=== PATIENT | male | born 1955 | race Caucasian/White ===

== ENCOUNTER 2017-07-14 10:30 | Day surgery (SDC) | payer MEDICAID, SELFPAY ==
[2017-07-14 10:49] VITALS: BP 148/76; PULSE 73; RESP 16; TEMP 37.1; O2SAT 100; BMI 30.4
--- NOTE | 2017-07-14 11:44 | COLBX_PTH ---
PATIENT: ATIYA SMITH LOC: EN U#:[id number] AGE/SX: 62/M ROOM: RE07/14/[address]: Dr. Eulalio Mohan MD : 1955 BED: DIS: 07/14/2017 SPEC #: [id number] RECD: 07/14/17 15:38 STATUS: MICHELLE REFran #: [id number] CINDI: 07/14/17 11:[address]: Eulalio Mohan DEPT: SURGICAL PATHOLOGY RECD BY: Paxton Pickard ENTERED: 07/15/17 09:18 SP TYPE: COLON BX OTHR DR: No Primary Care Phys Tissues: Ascending colon Procedures: Surgery Specimen Level IV HEADER OPERATION: Colonoscopy PRE-OP DIAGNOSIS: Screening TISSUE SUBMITTED: Ascending colon polyp MICROSCOPIC DIAGNOSIS Ascending colon polyp, biopsy: Tubular adenoma. AM:bacilio 07/16/17 MICROSCOPIC DESCRIPTION Slides are reviewed. GROSS DESCRIPTION Received in fixative is one container labeled with the patient's name and designated ascending colon polyp. The specimen consists of two irregular fragments of light chacko soft tissue that in aggregate measure 0.5 x 0.4 x 0.2 cm. The specimen is totally submitted in one cassette. / AM:bacilio 07/15/17 TC:5 CPT: 36565
--- NOTE | 2017-07-14 11:56 | PCM.HP.STD ---
Problem List (1) Colon cancer screening Status: Acute History of Present Illness Date of Admission: 07/14/17 The patient is a 62 year old M who presents for screening colonoscopy. Past Medical History Allergies No Known Allergies Allergy (Verified 07/11/17 09:55) Home Medications: Ambulatory Orders Medication Instructions Recorded Ascorbic Acid [Vitamin C] 500 mg PO DAILY@0800 07/11/17 Aspirin E.C. [Ecotrin] 81 mg PO DAILY@0800 07/11/17 Multivitamin [Multiple Vitamins] 1 each PO DAILY 07/11/17 Vitamin B Complex 1 each PO DAILY 07/11/17 Smoking Status: Never smoker Review of Systems Cardiovascular: Denies: Chest Pain, Chest Pressure, Chest Tightness, Palpitations Respiratory: Denies: Cough, Hemoptysis, Shortness of breath at rest, Shortness of breath upon exertion, Wheezing Gastrointestinal: Denies: Abdominal Pain, Constipation, Diarrhea, Hematemesis, Nausea, Melena, Vomiting VTE Information - Inpt Only VTE Present on Admission: No VTE Mechan Device Prophylaxis: None VTE Pharm Prophylaxis ordered?: No Reason prophylaxis not ordered:: Treatment Not Indicated Patient Problems: Active and Suspected Problems Colon cancer screening (Acute) - Physical Exam Lungs: Clear to auscultation Cardiovascular: Regular rate, Regular Rhythm, No murmurs Abdomen: Bowel Sounds Present, Soft, Non Tender, Non-Distended Vital Signs Temp Pulse Resp BP Pulse Ox 98.7 F 73 16 148/76 H 100 07/14/17 10:49 07/14/17 10:49 07/14/17 10:49 07/14/17 10:49 07/14/17 10:49 Oxygen Delivery Method Room Air Weight: 182 lb 8.684 oz Body Mass Index (BMI) 30.4 Laboratory Tests Past 24 Hrs 07/14/17 07/14/17 11:15 11:15 Sodium Pending Potassium Pending Chloride Pending Carbon Dioxide Pending Anion Gap Pending BUN Pending Creatinine Pending Est GFR (MDRD) Af Amer Pending Est GFR (MDRD) Non-Af Pending BUN/Creatinine Ratio Pending Glucose Pending Calcium Pending Total Bilirubin Pending AST Pending ALT Pending Alkaline Phosphatase Pending Total Protein Pending Albumin Pending Triglycerides Pending Cholesterol Pending LDL Cholesterol Pending VLDL Cholesterol Pending HDL Cholesterol Pending Hepatitis C Ab (EIA) Pending Hepatitis C Comment Pending Assessment/Plan Active and Suspected Problems Colon cancer screening (Acute) Plan is to perform a colonoscopy.
--- NOTE | 2017-07-14 11:58 | PCM.OPRPT ---
Problem List (1) Colon cancer screening Status: Acute Report of Operation Date of Procedure: 07/14/17 Pre-Operative Diagnosis: Z12.11 screening colonoscopy Post-Operative Diagnosis: Same Surgery/Procedure Performed:: [id number] colonoscopy with snare polypectomy Type of Anesthesia:: MAC Anesthesiologist: Facundo Hough Description of Procedure: Patient was brought into the endoscopy suite. Placed in the left lateral decubitus position. Given graded anesthesia. Scope was inserted into the rectum and directed through the sigmoid colon, descending colon, transverse colon, ascending colon, to the cecum. Operative findings: 1. Cecum: Normal appearance no mass lesions normal ileocecal valve. 2. Ascending colon: Normal appearance no mass lesions. There were 2 small polyps identified both of them removed with snare cautery technique. 1 of them I nearly completely ablated with my cauterization. There will be much of any pathology report for it. The other one I was able to bring back to the channel the scope and we should be able to send that off for pathology. 3. Transverse colon: Normal appearance no mass lesions. 4. Descending colon: Normal appearance no mass lesions. 5. Sigmoid colon: Normal appearance no mass lesions. 6. Rectum: Normal appearance no mass lesions retroflexion did show some internal hemorrhoidal disease. The scope was withdrawn digital rectal exam was performed showing a smooth prostate with no nodules. The patient will need another colonoscopy in 3 years. - Admit VTE Documentation VTE Present on Admission: No VTE Mechan Device Prophylaxis: None VTE Pharm Prophylaxis ordered?: No Reason prophylaxis not ordered:: Treatment Not Indicated
[2017-07-14 12:02] VITALS: BP 107/71; BP 148/76; PULSE 18; RESP 18; TEMP 36.1; O2SAT 99
[2017-07-14 12:02] LABS: ALB/GLOB Ratio 1.3 RATIO (0.9-2.4); AST(SGOT) 28 U/L (15-37); Alanine Aminotransfer ALT/SGPT 32 U/L (16-61); Albumin, Serum 4.3 g/dL (3.2-5.0); Alkaline Phosphatase 71 U/L (45-117); Anion Gap 5 (5-15); BUN 15 mg/dL (7-18); BUN/Creat Ratio 11.4 RATIO (10-20); Calcium,Total 9.1 mg/dL (8.5-10.1); Chloride 107 mmol/L (98-107); Cholesterol 147 mg/dL (200); Creatinine, Serum 1.32 mg/dL (0.70-1.30); EST Glomerular Filtration Rate 58 mL/min (>60); Est Glom Filt Rate - Afr Amer 70 mL/min (>60); Estimated Creatinine Clearance 49.18 ml/min; Globulin 3.3 g/dL (2.2-4.2); Glucose 93 mg/dL (74-106); High Density Lipoprotein 54 mg/dL; Potassium 4.1 mmol/L (3.5-5.1); Protein, Total 7.6 g/dL (6.4-8.2); Sodium Level 139 mmol/L (136-145); Triglycerides 69 mg/dL; Very Low Density Lipoprotein 14 mg/dL (5-40)
[2017-07-14 12:15] VITALS: BP 121/81; BP 148/76; PULSE 58; RESP 18; O2SAT 97
[2017-07-14 12:20] VITALS: BP 112/67; BP 148/76; PULSE 63; RESP 18; O2SAT 96
[2017-07-14 12:25] VITALS: BP 114/78; BP 148/76; PULSE 61; RESP 18; TEMP 36.2; O2SAT 96
[2017-07-14 12:55] VITALS: BP 148/76
[2017-07-15 10:38] LABS: Hep C Antibodies <0.1 s/co ratio (0.0-0.9)
== END 2017-07-14 12:57 | disposition home or self-care (01) ==
LOC: EN 10:31 → AC 10:33
PROVIDERS: Family Medicine; Visit Provider Surgery
PROC: 0DJD8ZZ Inspection of Lower Intestinal Tract, Via Natural or Artificial Opening Endoscopic (ICD-10-PCS; CPT 45378; principal; 2017-07-14 11:25)
DX: Z12.11 Encounter for screening for malignant neoplasm of colon (principal); D12.2 Benign neoplasm of ascending colon
CPT/HCPCS: 45385; 80053; 80061; 86803; 88305; J7120

== ENCOUNTER 2024-02-13 07:25 | Day surgery (SDC) | payer MEDICARE, SELFPAY ==
[2024-02-13] VITALS (15 sets, daily range): BP systolic 84–153; BP diastolic 54–83; PULSE 56–95; RESP 16–17; TEMP 36.4–36.7; O2SAT 89–100; BMI 34.7
--- NOTE | 2024-02-13 08:09 | PRE.ANES_ITS ---
ASA Classification* ASA Classification ASA Classification: 2 Assessment & Plan Anesthesia* Anesthesia Assessment Anesthesia Assessment: Discussed sedation and/or anesthesia options, risks, benefits, and alternatives with patient/parents/legal guardian/POA. Questions invited. The patient/parents/legal guardian/POA seems to understand and agrees to proceed with anesthesia plan. Reviewed the physical assessment, medical history, allergy history and patient home medications list prior to surgery/procedure/anesthetic and documented any changes. Performed airway and anesthesia risk assessments. Anesthesia Type Anesthesia Type: MAC Anesthesia Focused Assessment* Temperature: 97.8 F Pulse Rate: 95 Blood Pressure: 153/80 Respiratory Rate: 17 Pulse Ox: 95 Airway Assessment Mouth opens: >3 cm Mallampati Score: II Focused Labs Anesthesia Preop lab: CBC CHEMISTRY Potassium 4.1 mmol/L (3.5-5.1) 07/14/17 11:15 Sodium 139 mmol/L (136-145) 07/14/17 11:15 BUN 15 mg/dL (7-18) 07/14/17 11:15 Creatinine 1.32 mg/dL (0.70-1.30) H 07/14/17 11:15 Glucose 93 mg/dL (74-106) 07/14/17 11:15 COAG Pre-Assessment Diagnosis/Proposed Procedure Planned Operative Procedure(s): CSCOPE OA Anesthesia History Anesthesia History - manager front office: Anesthesia History - manager front office Hx Hospitalization No 02/12/24 09:24 Any Problems With Anesthesia No 02/12/24 09:24 Cholinesterase deficiency No 02/12/24 09:24 You/Your Family Experience No 02/12/24 09:24 fever (hyperthermia) with Relationship Recent Exposure to Contagious No 02/13/24 07:56 Disease Does patient have nerve No 02/12/24 09:24 stimulator Patient instructed to have device shut off --Does patient have Pacemaker No 02/13/24 07:56 or ICD? When Was Last Pacemaker Check QUESTION #4 FULL TEXT: You/Your Family Experience fever (hyperthermia) with Anesthesia Last Oral Intake Last Oral intake: Last Oral Intake NPO since 00:00 02/13/24 07:56 Meds taken in AM with sips of No 02/13/24 07:56 water? Meds patient instructed to take am of surgery PONV PONV - manager front office: PONV - manager front office Female No 02/12/24 09:24 HX of Motion Sickness No 02/12/24 09:24 HX of N/V After Surgery No 02/12/24 09:24 Non-Smoker Yes 02/12/24 09:24 Duration of Surgery greater No 02/12/24 09:24 than 60 minutes Number of Risk Factors 1 02/12/24 09:24 PONV Score Low Risk 02/12/24 09:24 Height & Weight Height & Weight: Anesthesia: Height & Weight Height 5 ft 4 in 02/13/24 07:56 Weight: 91.6 kg 02/13/24 07:56 Body Mass Index (BMI) 34.7 02/13/24 07:56 Respiratory Assessment Respiratory Assessment - manager front office: Respiratory Tract Infection Hx - manager front office Hx Respiratory Tract Infection No 02/12/24 09:24 STOP Sleep Apnea STOP Sleep Apnea - manager front office: STOP Sleep Apnea - manager front office Hx Hypertension No 02/12/24 09:24 Hx Sleep Apnea No 02/12/24 09:24 CPAP No 02/12/24 09:24 BIPAP Do you snore loudly (louder No 02/12/24 09:24 than talking or can be heard Do you often feel tired/ No 02/12/24 09:24 fatigued/ sleepy during daytime? Has anyone observed you stop No 02/12/24 09:24 breathing during sleep? STOP Results Negative 02/12/24 09:24 QUESTION #5 FULL TEXT : Do you snore loudly (louder than talking or can be heard through closed doors)? 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 Specify any problems Hx of Preganancy in last 3 N/A 02/12/24 09:24 Months Nurse Filling Out Transfusion DSCHRIBER 02/12/24 09:24 & Questions: Date: 02/12/24 02/12/24 09:24 Time: 02/12/24 09:24 Patient unable to answer at this time (ie. confused, unrespo /Reproduction History /Reproductive History - manager front office: /Reproductive Hx- manager front office Hx Now No 02/12/24 09:24 Gestational Age (in weeks): EDC: Hx Hx Para Hx Section SAB No 02/12/24 09:24 [facility] Medical History (Updated 02/12/24 @ 09:28 by Kelly Argueta) Non-smoker Family history of malignant neoplasm of colon in relative diagnosed when younger than 50 years of age Parkinson disease Home Medications ?Medication ?Instructions ?Recorded ?Last Taken ?Type atorvastatin 20 mg tablet (Lipitor) 20 mg PO QHS 01/05/24 02/12/24 History carbidopa 10 mg-levodopa 100 mg 1 tab PO TID 01/05/24 02/12/24 History tablet pramipexole 0.5 mg tablet 0.5 mg PO QHS 01/05/24 02/12/24 History Allergy/AdvReac Type Severity Reaction Status Date / Time No Known Allergies Allergy Verified 02/13/24 07:45 Family History (Updated 01/05/24 @ 11:15 by Jessica Abebe) Daughter Colon cancer, Onset Age: 19 At age 17yrs, Treated at [facility] and survives Surgical History (Updated 02/12/24 @ 09:28 by Kelly Argueta) History of carpal tunnel surgery of right wrist History of carpal tunnel surgery of left wrist History of colonoscopy Social History (Updated 01/05/24 @ 11:16 by Jessica Abebe) current occupational status: employed current occupation: [employer] Smoking Status: Never smoker substance use type: does not use Review of Systems (Anesthesia) ROS Narrative System reviewed and no additional complaints, except as documented.
--- NOTE | 2024-02-13 08:30 | EGD_PTH ---
PATIENT: ATIYA SMITH LOC: EN U#:[id number] AGE/SX: 68/M ROOM: RE02/13/[address]: Dr. Mohan Adhikari MD : 1955 BED: DIS: 02/13/2024 SPEC #: [id number] RECD: 02/13/24 12:07 STATUS: MICHELLE AMANUEL #: [id number] CINDI: 02/13/24 08:[address]: Mohan Adhikari DEPT: SURGICAL PATHOLOGY RECD BY: Francois Matta ENTERED: 02/13/24 12:07 SP TYPE: EGD BIOPSY ROSA MARIA DR: Dr. Christo Peacock MD Tissues: A - Transverse colon B - Transverse colon C - Sigmoid colon biopsy D - Rectum, NOS Procedures: Surgery Specimen Level IV HEADER OPERATION: Colonoscopy and polypectomy PRE-OP DIAGNOSIS: History of colonic polyps TISSUE SUBMITTED: A- Transverse colon polyp, B- Distal transverse colon polyp, C- Recto sigmoid polyp, D- Rectal polyp MICROSCOPIC DIAGNOSIS A. Transverse colon polyp, biopsy: Fragments of tubular adenoma. B. Distal transverse colon polyp, biopsy: A fragment of benign colonic mucosa with focal hyperplastic change. C. Rectosigmoid colon polyp, biopsy: Hyperplastic polyp. D. Rectal polyp, biopsy: Fragments of tubular adenoma. AM.mr 02/16/2024 MICROSCOPIC DESCRIPTION Slides are reviewed. GROSS DESCRIPTION A. Received in fixative is one container labeled with the patient's name and designated Transverse colon polyp. The specimen consists of two irregular fragments of light chacko soft tissue that in aggregate measure 0.5 x 0.2 x 0.1 cm. The specimen is totally submitted in one cassette. B. Received in fixative is one container labeled with the patient's name and designated Distal transverse colon polyp. The specimen consists of one irregular fragment of light chacko soft tissue that measures 0.3 x 0.3 x 0.1 cm. The specimen is totally submitted in one cassette. C. Received in fixative is one container labeled with the patient's name and designated Rectal sigmoid polyp. The specimen consists of multiple irregular fragments of light chacko soft tissue that in aggregate measure 0.4 x 0.3 x 0.1 cm. The specimen is totally submitted in one cassette. D. Received in fixative is one container labeled with the patient's name and designated Rectal polyp. The specimen consists of multiple irregular fragments of light chacko soft tissue that in aggregate measure 0.8 x 0.5 x 0.1 cm. The specimen is totally submitted in one cassette. SJ.mr 02/13/2024 TC:5 CPT:34261r6
--- NOTE | 2024-02-13 08:40 | HP.PCM_ITS ---
[facility] - General General Date of Service: 02/13/24 HPI Narrative ATIYA SMITH, is a 68 M who presents for surveillance colonoscopy. He confirms his preappointment questionnaire that he has not experienced any change in her bowel habits-and particularly denies any notice of blood. He confirms a history of colon polyps with his last scope in [address] Mohan. He also shares about the family history of colon cancer diagnosed in his daughter at the age of 19. He describes how she required a segmental colectomy but ever since that time has had no further difficulties from her disease process. He does share that she routinely completes surveillance colonoscopies. Lastly he confirms that his prep was completed successfully and that his output is now clear. [facility] Medical History (Updated 02/13/24 @ 08:[address] Mohan Adhikari MD) Non-smoker Family history of malignant neoplasm of colon in relative diagnosed when younger than 50 years of age Parkinson disease Home Medications ?Medication ?Instructions ?Recorded ?Last Taken ?Type atorvastatin 20 mg tablet (Lipitor) 20 mg PO QHS 01/05/24 02/12/24 History carbidopa 10 mg-levodopa 100 mg 1 tab PO TID 01/05/24 02/12/24 History tablet pramipexole 0.5 mg tablet 0.5 mg PO QHS 01/05/24 02/12/24 History Allergy/AdvReac Type Severity Reaction Status Date / Time No Known Allergies Allergy Verified 02/13/24 07:45 Family History (Updated 01/05/24 @ 11:15 by Jessica Abebe) Daughter Colon cancer, Onset Age: 19 At age 19yrs, Treated at [facility] and survives Surgical History (Updated 02/12/24 @ 09:28 by Kelly Argueta) History of carpal tunnel surgery of right wrist History of carpal tunnel surgery of left wrist History of colonoscopy Social History (Updated 01/05/24 @ 11:16 by Jessica Abebe) current occupational status: employed current occupation: [employer] Smoking Status: Never smoker substance use type: does not use Past Medical/Surgical History Planned Operation Planned Operative Procedure(s): CSCOPE OA S.O.S: No Previous Hospitalizations/Surgeries HX Hospitalizations: No HX of Surgeries: bilat carpal tunnel colonoscopy Any Problems With Anesthesia: No You/Your Family Experience Fever (Hyperthermia) With Anes: No Cholinesterase deficiency: No Cardiovascular Hx Chest Pain within Last 2 months: No Hx of Irregular Heartbeat and/or Afib: No Hx Heart Attack: No Hx Congestive Heart Failure: No Hx Rheumatic Fever: No Hx Hypertension: No Hx Internal Defibrillator: No Hx Pacemaker: No Hx Cardiac Catheterization: No Hx Cardiac Surgery/Stents/Etc.: No Hx Stress Test: No Hx Pain in Legs when Walking/Leg Cramps: No Respiratory Chronic Cough: No HX of Shortness of Breath: No Hoarseness: No Hx Chronic Obstructive Pulmonary Disease (COPD): No Hx Asthma: No Hx Emphysema: No Hx Sleep Apnea: No CPAP: No Hx Respiratory Tract Infection/Cold (presently): No Do You Snore Loudly (louder than talking or can be heard): No Do You Often Feel Tired/ Fatigued/ Sleepy Dring Daytime?: No Has Anyone Observed You Stop Breathing During Sleep?: No Result (for STOP score): Negative Hx Smoking: No Smoking Status: Never smoker Gastrointestinal Hx Gastrointestinal Disorders: No Hx Gastrointestinal Bleed: No Hx Ulcer: No Hx Hiatal Hernia: No Difficulty Chewing/Swallowing: No Special diet followed at home: No Hx Unplanned Weight Loss of 20#: No HX Unplanned Weight Gain of 20#: No Neurological Hx Seizures: No HX Syncope/Blackout Spells/Unconsciousness: No Hx Transient Ischemic Attacks (TIA): No Hx Multiple Sclerosis: No Hx Parkinson's Disease: No Hx Head/Neck Injury: No Hx Headaches: No Hx Back Injury/Pain: No Recent Onset of Speech Difficulty: No Restless Legs: No Does patient have nerve stimulator: No Blood Disorder Hx Leukemia: No Bleeding Tendencies: No Hx Deep Vein Thrombosis: No Hx High Cholesterol: No Blood Transmitted Disease: No Hx Hepatitis: No Hx Cirrhosis: No Hx Anemia: No Hx Blood Disorders: No Reproduction : No Genitourinary Hx Renal Disease: No Musculoskeletal Hx Arthritis: No Hx Rheumatoid Arthritis: No Hx Gout: No Recent Onset of an Orthopedic Problem: No Endocrine Hx Diabetes: No Thyroid Disease: No Hx Steroid Therapy: No Psycho/Social Hx Substance Use: No Hx Alcohol Use: No Hx Anxiety: No Hx Depression: No Mental Illness: No Hx Dementia: No Miscellaneous Hx Cancer: No Recent Exposure to Contagious Disease: No Hx of C-Diff: No Any Loose Teeth: No Allergies No Known Allergies Allergy (Verified 02/13/24 07:45) Discharge Is Pt Admitted From a [facility], or a [facility]: No After D/C, Where Do you Plan to Go: Return Home Vital Signs Vital Signs Vital Signs: 02/13/24 07:56 02/13/24 07:56 02/13/24 08:10 Temperature 97.8 F 97.8 F Temperature Source Temporal Pulse Rate 95 95 Respiratory Rate 17 17 Respiratory Pattern Normal Blood Pressure 153/80 H 153/80 H Blood Pressure Mean 104 Blood Pressure Source Monitor Blood Pressure Position Semi-Fowlers Blood Pressure Location Right Arm Pulse Ox 95 95 Oxygen Delivery Method Room Air Weight Weight: 201 lb 15.095 oz Body Mass Index (BMI) 34.7 Physical Exam Const alert, oriented x3 and no apparent distress General Appearance: cooperative and comfortable Resp normal respiratory effort GI GI Narrative: Obese, no scars, no visible herniation, nondistended, soft, nontender to palpation x 4 quadrants Assessment & Plan Assessment/Plan (1) Personal history of colonic polyps: PLAN: Patient is a 68-year-old male who makes his appointment today for surveillance of a history of colon polyps (more specifically history of tubular adenoma discovered at the time of colonoscopy in 2018). Denies any interval GI issues. Also appears to have somewhat increased risk for colon cancer based on family history with a daughter diagnosed precociously with colon cancer at the age of 19. Patient completed prep for today's procedure and denies any further questions related to planned procedure. Therefore we will proceed to endoscopy suite for colonoscopy and biopsies as indicated. Surgery Risks - Colonoscopy Risks Include but are not Limited To: Risks include but are not limited to: Bleeding, perforation requiring further surgery, inability to complete colonoscopy requiring barium enema.
--- NOTE | 2024-02-13 09:32 | OP.CCLET_ITS ---
02/13/2024 Christo Peacock Re : Colonoscopy procedure for Markus Stratton Deahomer Peacock This procedure was performed on Tuesday, February 13, 2024. My impressions and recommendations are as follows: Impressions : - Perianal skin tags found on perianal exam. - Two 5 to 10 mm, non-bleeding polyps in the proximal transverse colon and in the distal transverse colon, removed with a hot snare. Resected and retrieved. - Diverticulosis in the sigmoid colon. No specimens collected. - One 3 mm polyp at the recto-sigmoid colon. Biopsied. - One 7 mm polyp in the rectum, removed with a hot snare. Resected and retrieved. - The examination was otherwise normal on direct and retroflexion views. Recommendations : - Discharge patient to home (via wheelchair). - High fiber diet today. - No aspirin, ibuprofen, naproxen, or other non-steroidal anti-inflammatory drugs for 2 days after polyp removal. - Await pathology results. - Repeat colonoscopy date to be determined after pending pathology results are reviewed. - Telephone my office for pathology results in 1 week. My findings are described in the full procedure note, which is enclosed. If I can be of further assistance, please feel free to contact me at Doctor phone number(s): , Work: . Sincerely, Mohan Adhikari MD 02/13/2024 9:31:56 AM This report has been signed electronically.
--- NOTE | 2024-02-13 09:32 | OP.COLON_ITS ---
Patient Name: Markus Stratton Procedure Date: 02/13/2024 8:28 AM Date of : 1955 Age: 68 Procedure: Colonoscopy Indications: High risk colon cancer surveillance: Personal history of adenoma less than 10 mm in size, Family history of colon cancer in a first-degree relative before age 60 years Providers: Mohan Adhikari MD Referring MD: Christo Peacock Medicines: See the Anesthesia note for documentation of the administered medications Patient Profile: Refer to note in patient chart for documentation of history and physical. Last Colonoscopy: several years ago. Complications: No immediate complications. Estimated blood loss: Minimal. Procedure: Pre-Anesthesia Assessment: - The heart rate, respiratory rate, oxygen saturations, blood pressure, adequacy of pulmonary ventilation, and response to care were monitored throughout the procedure. After I obtained informed consent, the scope was passed under direct vision. Throughout the procedure, the patient's blood pressure, pulse, and oxygen saturations were monitored continuously. The Colonoscope was introduced through the anus and advanced to the cecum, identified by the appendiceal orifice, ileocecal valve and palpation. The colonoscopy was performed without difficulty. The patient tolerated the procedure well. The quality of the bowel preparation was adequate to identify polyps. Scope In: 8:49:07 AM Scope Withdrawal Time 0 hours 27 minutes 56 seconds Scope Out: 9:22:19 AM Total Procedure Duration Time 0 hours 33 minutes 12 seconds Findings: Skin tags were found on perianal exam. Enlarged prostate, No biopsies or other specimens were collected for this exam. Two semi-pedunculated, non-bleeding polyps were found in the proximal transverse colon and distal transverse colon. The polyps were 5 to 10 mm in size. These polyps were removed with a hot snare. Resection and retrieval were complete. Estimated blood loss: none. A few small-mouthed diverticula were found in the sigmoid colon. No biopsies or other specimens were collected for this exam. A 3 mm polyp was found in the recto-sigmoid colon. The polyp was semi-sessile. Biopsies were taken with a cold forceps for histology. Estimated blood loss was minimal. A 7 mm polyp was found in the rectum. The polyp was semi-pedunculated. The polyp was removed with a hot snare. Resection and retrieval were complete. Estimated blood loss: none. The exam was otherwise without abnormality on direct and retroflexion views. Impression: - Perianal skin tags found on perianal exam. - Two 5 to 10 mm, non-bleeding polyps in the proximal transverse colon and in the distal transverse colon, removed with a hot snare. Resected and retrieved. - Diverticulosis in the sigmoid colon. No specimens collected. - One 3 mm polyp at the recto-sigmoid colon. Biopsied. - One 7 mm polyp in the rectum, removed with a hot snare. Resected and retrieved. - The examination was otherwise normal on direct and retroflexion views. Recommendation: - Discharge patient to home (via wheelchair). - High fiber diet today. - No aspirin, ibuprofen, naproxen, or other non-steroidal anti-inflammatory drugs for 2 days after polyp removal. - Await pathology results. - Repeat colonoscopy date to be determined after pending pathology results are reviewed. - Telephone my office for pathology results in 1 week. Procedure Code(s): --- Professional --- 67987, Colonoscopy, flexible; with removal of tumor(s), polyp(s), or other lesion(s) by snare technique 61497, 59, Colonoscopy, flexible; with biopsy, single or multiple Diagnosis Code(s): --- Professional --- Z86.010, Personal history of colonic polyps D12.3, Benign neoplasm of transverse colon (hepatic flexure or splenic flexure) D12.7, Benign neoplasm of rectosigmoid junction D12.8, Benign neoplasm of rectum K64.4, Residual hemorrhoidal skin tags Z80.0, Family history of malignant neoplasm of digestive organs K57.30, Diverticulosis of large intestine without perforation or abscess without bleeding CPT copyright 2021 [employer]. All rights reserved. The codes documented in this report are preliminary and upon formulator review may be revised to meet current compliance requirements. Mohan Adhikari MD 02/13/2024 9:31:56 AM This report has been signed electronically. Number of Addenda: 0 Note Initiated On: 02/13/2024 8:28 AM
--- NOTE | 2024-02-13 09:34 | PCM.POST.ANE ---
Anesthesia: Postop Eval I Current Vital Signs Temperature: 98.1 F Pulse Rate: 64 Blood Pressure: 111/72 Respiratory Rate: 16 Pulse Ox: 91 Oxygen Delivery Method: Room Air Assessment Airway patent: Yes Spontaneous unlabored respirations: Yes Mental status: Asleep nausea: No Vomiting: No Anesthesia Complication: No Fluid Hydration Crystalloid volume administer (ml): 90 Total IV fluid infused: 90 Progress Note Anesthesia document: Postop Eval 1 completed: Yes
--- NOTE | 2024-02-13 13:08 | PCM.POSTANE2 ---
Anesthesia Postop Eval I Sum Postop Eval Completion status Anesthesia document: Postop Eval 1 completed: Yes Anesthesia Postop Eval I Summary Anesthesia Postop Eval I Summary: Anesthesia Postop Eval I: Assessment Summary Airway patent Yes 02/13/24 09:35 [email or web address] Spontaneous unlabored Yes 02/13/24 09:35 [email or web address] respirations Mental status Asleep 02/13/24 09:35 [email or web address] nausea No 02/13/24 09:35 [email or web address] Vomiting No 02/13/24 09:35 [email or web address] Anesthesia Postop Eval I: Fluid Summary Crystalloid volume administer 90 02/13/24 09:35 [email or web address] (ml) Colloids volume administered ( ml) Blood Product volume administered (ml) Total IV fluid infused 90 02/13/24 09:35 [email or web address] Anesthesia Postop Eval I: Summary Notes Anesthesia Complication No 02/13/24 09:35 [email or web address] Anesthesia Complication Comment: Post-operative progress note Anesthesia: Postop Eval II Evaluation Mental status: Awake Pain Level: 0 nausea: No Vomiting: No
== END 2024-02-13 11:05 | disposition home or self-care (01) ==
LOC: EN 07:26 → AC 07:28
PROVIDERS: PCP Family Medicine; Referring Provider Family Medicine; Visit Provider Surgery
PROC: 0DJD8ZZ Inspection of Lower Intestinal Tract, Via Natural or Artificial Opening Endoscopic (ICD-10-PCS; CPT 45378; principal; 2024-02-13 08:25)
DX: Z12.11 Encounter for screening for malignant neoplasm of colon (principal); G20.A1 Parkinson's disease without dyskinesia, without mention of fluctuations; K57.30 Diverticulosis of large intestine without perforation or abscess without bleeding; K64.4 Residual hemorrhoidal skin tags; D12.8 Benign neoplasm of rectum; Z90.49 Acquired absence of other specified parts of digestive tract; D12.7 Benign neoplasm of rectosigmoid junction; Z80.0 Family history of malignant neoplasm of digestive organs; Z86.0100 Personal history of colon polyps, unspecified
CPT/HCPCS: 45385; 45380; 88305; A4216; J2405

== ENCOUNTER 2024-09-09 21:53 | Inpatient (IN) | payer MEDICARE, SELFPAY ==
[2024-09-09 21:54] VITALS: BP 166/107; PULSE 108; RESP 24; TEMP 39.5; O2SAT 93; BMI 34.0
[2024-09-09 21:58] VITALS: BP 166/107; PULSE 108; RESP 24; TEMP 39.5; O2SAT 93
--- NOTE | 2024-09-09 22:31 | EKG12_ITS ---
Test Reason : DYSRHYTHMIA Blood Pressure : */* mmHG Vent. Rate : 103 BPM Atrial Rate : 103 BPM P-R Int : 216 ms QRS Dur : 84 ms QT Int : 330 ms P-R-T Axes : 33 -23 16 degrees QTcB Int : 432 ms Sinus tachycardia with 1st degree A-V block Minimal voltage criteria for LVH, may be normal variant ( R in aVL ) Borderline ECG Confirmed by Mohan Howard ([id number]), marketing editor ALLISON ZUÑIGA ([id number]) on 09/14/2024 11:34:40 AM Referred By: Confirmed By: Mohan Howard
[2024-09-09 22:41] LABS: Absolute Lymphocyte Count 0.68 X10^3/uL (0.83-4.51); Absolute Neutrophil Count 10.2 X10^3/uL (2.0-7.7); Basophil# 0.06 X10^3/uL; Basophil% 0.5 % (0-1); Hematocrit 42.7 % (40-54); Hemoglobin 14.6 g/dL (13.0-16.5); Lymphocyte # 0.68 X10^3/ul (0.83-4.51); Lymphocyte % 5.7 % (19-41); Mean Corp Hgb Conc 34.2 g/dL (32-36); Mean Corpuscular Volume 84.7 fL (80-94); Mean Platelet Vol. 10.7 fl (6.2-12.0); Monocyte% 8.3 % (0-10); NRBC Flagged by Analyzer 0 % (0-5); Neutrophil # 10.21 X10^3/uL (2.7-7.7); Platelet Count 198 K/mm3 (150-450); RBC Distribution Width CV 13.1 % (11.6-14.6); RBC Distribution Width SD 40.3 fl (35.1-43.9); Red Blood Count 5.04 M/mm3 (4.6-6.2)
[2024-09-09 22:51] LABS: International Normalized Ratio 1.1; Prothrombin Time (Protime)PT. 14.6 SECONDS (11.7-14.9)
[2024-09-09 22:54] VITALS: BP 150/81
[2024-09-09 22:58] VITALS: BP 150/81; PULSE 102; RESP 33; TEMP 38.8; O2SAT 94
[2024-09-09 23:08] LABS: Anion Gap 15 (5-15); BUN 13 mg/dL (4-19); BUN/Creat Ratio 9.4 RATIO (10-20); Calcium,Total 9.2 mg/dL (7.6-11.0); Chloride 100 mmol/L (98-108); Creatinine, Serum 1.36 mg/dL (0.70-1.20); EST Glomerular Filtration Rate 56 (>60); Estimated Creatinine Clearance 50.34 ml/min (50-250); Glucose 139 mg/dL (70-99); Sodium Level 135 mmol/L (133-145)
[2024-09-09 23:14] VITALS: BMI 34.5
--- NOTE | 2024-09-09 23:25 | RAD_ITS ---
PROCEDURE: CHEST 1 VIEW (PORTABLE) 09/09/2024 REASON FOR EXAM: FEVER TECHNIQUE: Frontal view of the chest. COMPARISON: None FINDINGS: The lungs are expanded. There is no demonstrated parenchymal abnormality. There is no demonstrated pleural abnormality. The heart is enlarged. Normal mediastinum and mone. Normal visualized pulmonary arteries. Normal visualized aortic arch and descending thoracic aorta. Normal visualized thoracic spine. Normal visualized ribs, clavicles, and shoulders. There is no demonstrated abnormality of the visualized soft tissue structures of the upper abdomen. RAD/Chest 1 View (Portable) IMPRESSION: Cardiomegaly. No acute process. Reading [facility] [place]
[2024-09-09] MEDS: Piperacil/Tazobactam 3.375 GM in 0.9% Normal Saline (50mL MB+) 50 ML IV (23:29)
[2024-09-09] MEDS: 0.9% Normal Saline (1000mL) 1,000 ML 999 ML IV (23:29)
[2024-09-09 23:34] LABS: Squamous Epithelial Cells - UA 0 SEEN /hpf (0-5)
[2024-09-09 23:37] LABS: Color, Urine Yellow (Yellow); Glucose, Dipstick Normal (Normal); Ketone-Dipstick 50 mg/dl (Negative); Leukocyte Esterase-Dipstick 25 /ul (Negative); Nitrite-Dipstick Negative (Negative); Occult Blood-Urine 250 /ul (Negative); Protein-Dipstick 500 mg/dl (Negative); Specific Gravity, Urine 1.015 (1.002-1.030); Urine Bilirubin Dipstick Negative (Negative); Urine Clarity Sl. Cloudy (Clear); Urine Urobilinogen 1 mg/dl (Normal)
[2024-09-09] MEDS: Acetaminophen 500 MG Tablet 1000 MG PO (23:44)
[2024-09-09] MEDS: Vancomycin HCl 1,250 MG in 0.9% Normal Saline (250mL Bag) 250 ML 167 MG IV (23:51)
[2024-09-09 23:52] LABS: Lactic Acid 1.7 mmol/L (0.0-2.0)
[2024-09-09 23:53] LABS: White Blood Cells 5-10 SEEN /hpf (0-5)
[2024-09-09 23:54] LABS: Bacteria 1+ /hpf (None Seen); Mucous, Urine 1+ /hpf (<or=2+)
[2024-09-09 23:55] LABS: Red Blood Cells-Urine 50-100 SEEN /hpf (0-5)
[2024-09-09 23:57] VITALS: PULSE 103; RESP 35
[2024-09-09 23:58] LABS: AST(SGOT) 37 U/L (<=37); Alanine Aminotransfer ALT/SGPT 39 U/L (<=46); Albumin, Serum 4.2 g/dL (3.4-4.8); Alkaline Phosphatase 74 U/L (40-129); Procalcitonin 0.94 ng/mL (<=0.10); Protein, Total 7.2 g/dL (5.9-8.4); Total Bilirubin 1.85 mg/dL (0.00-1.30)
[2024-09-10] VITALS (16 sets, daily range): BP systolic 116–165; BP diastolic 69–142; PULSE 66–105; RESP 18–43; TEMP 36.4–38.8; O2SAT 92–96; BMI 34.7
[2024-09-10 00:07] LABS: Ammonia 16.2 umol/L (16-60)
--- OUTSIDE RECORDS SUMMARY | 2024-09-10 00:20 | XMS RPT_ITS | CCD ---
Author Organization [facility] Care Team Providers Care Neon Sign Installer Name Role Phone Christo Warren MD Primary Care Provider Christo Warren MD Primary Care Provider Derrickagen ELECTRONIC TESTER.Hermelinda DELEON Unavailable Suppan ELECTRONIC TESTER.Marito DELEONPalak A Unavailable [phone] Chrisot Warren Primary Care Unavailable Mohan Adihkari Attending Unavailable Mohan Adhikari Consulting Unavailable Christo Warren Referring Unavailable Christo Warren Attending Unavailable Christo Warren Primary Care Unavailable Mohan Adhikari Attending Unavailable Christo Warren Referring Unavailable Christo Warren Primary Care Unavailable Jessica Abebe Attending Unavailable Care Physician, No Primary Primary Care Unava ilable Suppan ELECTRONIC TESTER.ADRIENNE Palak A Unavailable [phone] Suppan ELECTRONIC TESTER.ADRIENNE Palak A Unavailable [phone] SELF Referring Unavailable CHRISTO WARREN Primary Care Unavailable MERON COOPER Attending Unavailable NIKKI JAVIER Attending Unavailable NIKKI JAVIER Referring Unavailable CHRISTO WARREN Primary Care Unavailable CHRISTO WARREN Attending Unavailable CHRISTO WARREN Primary Care Unavailable CHRISTO WARREN Referring Unavailable CHRISTO WARREN Primary Care Unavailable RACHEL MARTINS Attending Unavailable CHRISTO WARREN Primary Care Unavailable RACHEL MARTINS Attending Unavailable CHRISTO WARREN Primary Care Unavailable NIKKI JAVIER Attending Unavailable CHRISTO WARREN Referring Unavailable MICHELET, CHRISTO Delarosa Primary Care Unavailable MICHELET, CHRISTO Delarosa Primary Care Unavailable CHRISTO WARREN Attending Unavailable MICHELET, CHRISTO Delarosa Primary Care Unavailable BONNY BAINS Attending Unavailable MICHELET, CHRISTO Delarosa Referring Unavailable MICHELET, CHRISTO Delarosa Primary Care Unavailable CHRISTO WARREN Attending Unavailable CHRISTO WARREN Primary Care Unavailable NIKKI JAVIER Attending Unavailable CHRISTO WARREN Primary Care Unavailable NIKKI JAVIER Referring Unavailable CHRISTO WARREN Primary Care Unavailable Medications Current Medications Medication Drug Class(es) Dates Sig (Normalized) Sig (Original) amoxicillin 875 mg / clavulanate 125 mg oral tablet (3 sources) Penicillin-class Antibacterial Start: 03-31-2022 End: 04-10-2022 take 1 tablet by mouth twice daily amoxicillin-clavul anic acid (AUGMENTIN) 875-125 mg per tablet Indications: Tooth ache Take 1 tablet by mouth twice daily for 10 days. 20 tablet 0 03/31/2022 04/10/2022 Active Comment on above: Take 1 tablet by gold th twice daily for 10 days. ascorbic acid 500 mg oral tablet (20 sources) Vitamin C Start: 12-28-2010 End: 04-12-2024 take 1 tablet by mouth once daily ascorbic acid, vitamin C, (VITAMIN C) 500 mg tablet Take 1 tablet by mouth once daily. 0 12/28/2010 04/12/2024 Discontinued Comment on above: Take 1 tablet by gold th once daily. aspirin 325 mg oral tablet (20 sources) Platelet Aggregation Inhibitor, Nonsteroidal Anti-inflammatory Drug Start: 12-28-2010 take 1 tablet by mouth once daily aspirin 325 mg ORAL tablet Take 1 tablet by mouth once daily. 0 12/28/2010 Active Comment on above: Take 1 tablet by gold th once daily. azithromycin 250 mg oral tablet (2 sources) Macrolide Antimicrobial Start: 05-01-2024 End: 05-06-2024 take 2 tablets by mouth once daily, then take 1 tablet by mouth once daily azithromycin (ZITHROMAX) 250 mg tablet Indications: Bronchitis Take 2 tablets by mouth once daily for 1 day, THEN 1 tablet once daily for 4 days. 6 tablet 05/01/2024 05/06/2024 Active benzonatate 100 mg oral capsule (19 sources) Non-narcotic Antitussive Start: 05-01-2024 take 1 capsule by mouth three times daily as needed benzonatate (TESSALON PERLE) 100 mg capsule Indications: Bronchitis Take 1 capsule by mouth three times a day as needed. 30 capsule 05/01/2024 Active Start: 11-11-2023 End: 01-20-2025 take 1 capsule by mouth every eight hours as needed benzonatate (TESSALON PERLE) 100 mg capsule Take 1 capsule by mouth three times a day as needed. 21 capsule 11/11/2023 04/12/2024 Discontinued Start: 01-02-2021 take 1 capsule by mo ut every eight hours as needed benzonatate (TESSALON PERLES) 100 mg capsule Take 1 capsule by mouth three times daily as needed for cough. 12 capsule 0 01/02/2021 Active Comment on above: Take 1 capsule by mo ut three times daily as needed for cough. carbidopa 25 mg / levodopa 100 mg oral tablet (17 sources) Aromatic Amino Acid Decarboxylation Inhibitor, Aromatic Amino Acid Start: 08-06-19 End: 08-06-19 take 2 tablets by mouth three times daily carbidopa-levodopa (SINEMET) 25-100 mg per tablet Indications: Parkinson's disease without dyskinesia or fluctuating manifestations (HCC) Take 2 tablets by mouth three times a day. 540 tablet 3 08/05/2024 08/05/2025 Active Start: 11-17-2023 End: 05-15-2024 take 2 tablets by mouth three times daily carbidopa-levodopa (SINEMET) 25-100 mg per tablet Indications: Parkinson's disease without dyskinesia or fluctuating manifestations (HCC) Take 2 tablets by mouth three times a day. 540 tablet 1 11/17/2023 05/10/2024 Discontinued cholecalciferol 0.025 mg oral capsule (20 sources) Vitamin D Start: 01-23-2011 End: 04-12-2024 take 1 capsule by mouth once daily Cholecalciferol, Vitamin D3, 25 mcg (1,000 unit) cap Take 2,000 Units by mouth once daily. 0 01/23/2011 04/12/2024 Discontinued Start: 01-23-2011 Cholecalcifero l, Vitamin D3, (VITAMIN D) 1,000 unit ORAL Cap Take 2,000 Units by mouth once daily. 0 01/23/2011 Active Comment on above: Take 2,000 Units by mouth once daily. chondroitin sulfates 40 mg/ml / glucosamine hydrochloride 66.7 mg/ml oral solution (20 sources) End: 04-12-2024 glucosamine HCl/chondroitin granger (GLUCOSAMINE-CHONDROITIN) 2,000-1,200 mg/30 mL liqd Take by mouth once daily. 04/12/2024 Discontinued glucosamine HCl/ chondroitin [place] (GLUCOSAMINE-CHONDROITIN) 2,000-1,200 mg/30 mL liqd Take by mouth. 0 Active Comment on above: Take by mouth. codeine phosphate 2 mg/ml / guaiFENesin 20 mg/ml oral solution (1 source) Opioid Agonist Start: 11-20-2023 End: 11-27-2023 take 5 mL by mouth every eight hours as needed for cough and cough codeine-guaiFENesin (ROBITUSSIN AC) 10-100 mg/5 mL syrup Indications: Acute cough Take 5 mL by mouth three times a day as needed for cough for up to 7 days. 105 mL 11/20/2023 11/27/2023 Active gabapentin 300 mg oral capsule (10 sources) Anti-epileptic Agent Start: 04-19-2024 End: 10-17-2024 gabapentin (NEURONTIN) 300 mg capsule Indications: RLS (restless legs syndrome) Take 1 pill in the evening and 2 pills at bedtime 270 capsule 2 04/19/2024 10/17/2024 Active Start: 01-09-2023 End: 01-14-2023 take 1 capsule by mouth once daily at bedtime gabapentin (NEURONTIN) 100 mg capsule Indications: RLS (restless legs syndrome) Take 1 capsule by mouth daily at bedtime for 90 days. 30 capsule 0 01/09/2023 01/14/2023 Discontinued Comment on above: Take 1 capsule by mo uth daily at bedtime for 90 days. lisinopril 10 mg oral tablet (20 sources) Angiotensin Converting Enzyme Inhibitor Start: End: take 1 tablet by mouth once daily lisinopril (ZESTRIL) 10 mg tablet Indications: Essential hypertension Take 1 tablet by mouth once daily. 90 tablet 3 04/12/2024 04/12/2025 Active Start: 09-08-2023 End: 09-07-2024 take 1 tablet by mouth once daily lisinopril (ZESTRIL) 5 mg tablet Indications: Essential hypertension Take 1 tablet by mouth once daily. 30 tablet 11 09/08/2023 04/12/2024 Discontinued Start: 11-13-2021 End: 09-08-2023 take 1 tablet by mouth once daily lisinopril 2.5 mg tablet Indications: Essential hypertension Take 1 tablet by mouth once daily. 90 tablet 3 07/29/2023 09/08/2023 Discontinued (Adjust Sig - Block E-Cancel) Start: 05-01-2020 End: 11-07-2021 take 1 tablet by mouth once daily lisinopril 2.5 mg tablet Indications: Essential hypertension Take 1 tablet by mouth once daily. 90 tablet 1 11/03/2020 11/07/2021 Discontinued Comment on above: Take 1 tablet by gold th once daily. magnesium oxide 500 mg oral tablet (20 sources) End: 04-12-2024 take 1 tablet by mouth once daily Magnesium Oxide 500 mg tab Take 500 mg by mouth once daily. 04/12/2024 Discontinued Comment on above: Take 500 mg by mouth once daily. melatonin 10 mg oral tablet (4 sources) take 1 tablet by mouth once daily at bedtime melatonin 10 mg tab Take 10 mg by mouth daily at bedtime. Active Vitamin B Complex (20 sources) Start: 12-28-2010 End: 04-12-2024 take 1 tablet by mouth once daily vitamin b complex tab Take 1 tablet by mouth once daily. 0 12/28/2010 04/12/2024 Discontinued Start: 12-28-2010 take 1 tablet by gold th once daily vitamin b complex tab Take 1 tablet by mouth once daily. 0 12/28/2010 Active Start: 12-28-2010 take 1 tablet by gold th once daily vitamin b complex (B COMPLETE) ORAL Tab Take 1 tablet by mouth once daily. 0 12/28/2010 Active vitamin B comple x (B COMPLEX 1 ORAL) Take by mouth once daily. Active Comment on above: Take 1 tablet by gold th once daily. Zinc (20 sources) End: 04-12-2024 take 1 tablet by mouth once daily Zinc 50 mg tab Take 50 mg by mouth once daily. 04/12/2024 Discontinued take 1 tablet by mouth once terrance y Zinc 50 mg tab Take 50 mg by mouth once daily. Active take 1 tablet by mouth once terrance y Zinc 50 mg tab Take 50 mg by mouth once daily. 0 Active Comment on above: Take 50 mg by mouth once daily. Completed/Discontinued Medications Medication Drug Class(es) Dates Sig (Normalized) Sig (Original) amoxicillin 875 mg oral tablet (2 sources) Penicillin-class Antibacterial Start: 11-11-2023 End: 11-18-2023 take 1 tablet by mouth twice daily amoxicillin (AMOXIL) 875 mg tablet Take 1 tablet by mouth two times a day for 7 days. 14 tablet 11/11/2023 11/18/2023 diphenhydrAMINE hydrochloride 50 mg oral capsule (2 sources) Histamine-1 Receptor Antagonist Start: 01-23-2011 End: 11-19-2021 take 1 capsule by mouth every six hours as needed diphenhydrAMINE (SLEEP AID, DIPHENHYDRAMINE,) 50 mg ORAL capsule Take 1 capsule by mouth every 6 hours as needed. 0 01/23/2011 11/19/2021 Discontinued Comment on above: Take 1 capsule by [facility] every 6 hours as needed. hydrOXYzine hydrochloride 25 mg oral tablet (15 sources) Antihistamine Start: 08-17-2022 End: 09-08-2023 hydrOXYzine HCl (ATARAX) 25 mg tablet Indications: Lack of adequate sleep Take 1 tablet by mouth daily at bedtime. May increase to 2 tablets at bedtime if one is not effective. 90 tablet 0 08/17/2022 09/08/2023 Discontinued Comment on above: Take 1 tablet by [facility] daily at bedtime. May increase to 2 tablets at bedtime if one is not effective. oxaprozin 600 mg oral tablet (1 source) Nonsteroidal Anti-inflammatory Drug Start: 06-13-2020 take 2 tablets by mouth once daily oxaprozin (DAYPRO) 600 mg tablet Indications: Chronic midline low back pain without sciatica Take 2 tablets by mouth once daily. 60 tablet 0 06/13/2020 Active Comment on above: Take 2 tablets by [facility] once daily. pramipexole dihydrochloride 0.5 mg oral tablet (20 sources) Nonergot Dopamine Agonist Start: 09-08-2023 End: 08-05-2024 take 1 tablet by mouth once daily at bedtime pramipexole (MIRAPEX) 0.5 mg tablet Indications: RLS (restless legs syndrome) Take 1 tablet by mouth daily at bedtime. 90 tablet 1 03/10/2024 08/05/2024 Discontinued Start: 09-08-2023 End: 09-08-2023 take 1 tablet by mouth once daily at bedtime pramipexole 0.75 mg tablet Take 1 tablet by mouth daily at bedtime. 30 tablet 5 09/08/2023 09/08/2023 Discontinued Start: 02-24-2023 End: 02-28-2024 take 1 tablet by mouth once daily at bedtime pramipexole (MIRAPEX) 0.25 mg tablet Take 1 tablet by mouth daily at bedtime. 30 tablet 5 09/01/2023 09/08/2023 Discontinued (Adjust Sig - Block E-Cancel) Start: 01-14-2023 End: 02-24-2023 take 1 tablet by mouth once daily at bedtime pramipexole (MIRAPEX) 0.125 mg tablet Take 1 tablet by mouth daily at bedtime. 30 tablet 2 02/04/2023 02/24/2023 Discontinued Comment on above: Take 1 tablet by gold th daily at bedtime. [place] 160 mg capsule (1 source) Start: 04-07-2014 End: 03-12-2021 take 1 capsule by mouth twice daily [place] 160 mg capsule Take 160 mg by mouth twice daily. 0 04/07/2014 03/12/2021 Discontinued Problems Active Problems Problem Classification Problem Date Documented Date Episodic/Chronic Anxiety disorders (20 sources) Mixed anxiety and depressive disorder; Translations: [Anxiety disorder, unspecified] Onset: 08-14-2015 08-14-2015 Chronic Chronic obstructive pulmonary disease and bronchiectasis (2 sources) Bronchitis; Translations: [Bronchitis, not specified as acute or chronic] Onset: 05-01-2024 05-01-2024 Episodic Disorders of teeth and jaw (1 source) Toothache; Translations: [Other specified disorders of teeth and supporting structures] Episodic Essential hypertension (20 sources) Essential hypertension; Translations: [Essential (primary) hypertension] Onset: 08-14-2015 Chronic Other and unspecified benign neoplasm (3 sources) History of polyp of colon; Translations: [Personal history of colonic polyps] 09-08-2023 Episodic Other connective tissue disease (1 source) Pain of left calf; Translations: [Pain in left lower leg] 05-01-2020 Episodic Other connective tissue disease (1 source) Abnormal posture; Translations: [Abnormal posture] 09-06-2024 Episodic Other connective tissue disease (1 source) Abnormal posture; Translations: [Posture abnormality] Onset: 09-06-2024 Episodic Other hereditary and degenerative nervous system conditions (20 sources) Restless legs; Translations: [Restless legs syndrome] Onset: 09-08-2023 02-24-2023 Chronic Other hereditary and degenerative nervous system conditions (1 source) Restless legs syndrome; Translations: [RLS (restless legs syndrome)] Onset: 09-08-2023 Chronic Other lower respiratory disease (2 sources) Cough; Translations: [Acute cough] 11-11-2023 Episodic Other male genital disorders (20 sources) Male erectile dysfunction, unspecified; Translations: [Impotence of organic origin] Onset: 01-23-2011 01-23-2011 Chronic Other nervous system disorders (20 sources) Bilateral carpal tunnel syndrome; Translations: [Carpal tunnel syndrome, bilateral upper limbs] Onset: 08-06-2015 11-23-2015 Chronic Other nervous system disorders (1 source) Abnormal gait; Translations: [Unspecified abnormalities of gait and mobility] 09-08-2023 Episodic Other nervous system disorders (1 source) Bradykinesia; Translations: [Other abnormal involuntary movements] 09-08-2023 Episodic Other nutritional; endocrine; and metabolic disorders (6 sources) Simple obesity ; Translations: [Other obesity due to excess calories] Onset: 08-14-2015 08-14-2015 Chronic Other nutritional; endocrine; and metabolic disorders (20 sources) Obesity caused by energy imbalance; Translations: [Other obesity due to excess calories] Onset: 08-14-2015 08-14-2015 Chronic Other nutritional; endocrine; and metabolic disorders (3 sources) Hyperbilirubinemia; Translations: [Other disorders of bilirubin metabolism] 01-20-2023 Chronic Otitis media and related conditions (1 source) Acute right otitis media; Translations: [Otitis media, unspecified, right ear] 11-11-2023 Episodic Parkinson`s disease (2 sources) Parkinson`s disease; Translations: [Parkinson's disease without dyskinesia or fluctuating manifestations (HCC)] Onset: 08-05-2024 Residual codes; unclassified (1 source) Family history of cancer of colon; Translations: [Family history of malignant neoplasm of digestive organs] 09-29-2023 Episodic Unclassified (7 sources) Parkinson's disease; Translations: [Parkinson's disease without dyskinesia or fluctuating manifestations (HCC)] 11-17-2023 Chronic Unclassified (1 source) Personal history of colon polyps, unspecified; Translations: [Personal history of colon polyps, unspecified] Onset: 03-13-2024 Past or Other Problems Problem Classification Problem Date Documented Date Episodic/Chronic Adjustment disorders (20 sources) Stress and adjustment reaction; Translations: [Adjustment disorder with other symptoms] Onset: 04-07-2014 Resolved: 10-30-2017 10-30-2017 Chronic Other and unspecified benign neoplasm (1 source) Personal history of colonic polyps; Translations: [History of colonic polyps] Onset: 09-29-2023 Episodic Other connective tissue disease (20 sources) Dupuytrens contracture of bilateral hands; Translations: [Palmar fascial fibromatosis [Dupuytren]] Onset: 08-07-2015 08-07-2015 Episodic Other connective tissue disease (20 sources) Triggering of digit; Translations: [Trigger finger, left ring finger] Onset: 08-26-2017 08-26-2017 Episodic Other nervous system disorders (1 source) Unspecified abnormalities of gait and mobility; Translations: [Gait disorder] Onset: 11-17-2023 Episodic Other nervous system disorders (1 source) Other abnormal involuntary movements; Translations: [Bradykinesia] Onset: 11-17-2023 Episodic Other non-traumatic joint disorders (20 sources) Pain of right wrist; Translations: [Pain in right wrist] Onset: 09-13-2015 Resolved: 10-30-2017 10-30-2017 Episodic Other non-traumatic joint disorders (20 sources) Stiffness of left wrist; Translations: [Stiffness of left wrist, not elsewhere classified] Onset: 11-28-2015 Resolved: 10-30-2017 10-30-2017 Episodic Other screening for suspected conditions (not mental disorders or infectious disease) (15 sources) Patient encounter status; Translations: [Encounter for screening for malignant neoplasm of colon] Onset: 01-05-2024 01-24-2023 Episodic Spondylosis; intervertebral disc disorders; other back problems (20 sources) Neck pain; Translations: [Cervicalgia] Onset: 09-09-2017 Resolved: 10-30-2017 10-30-2017 Episodic Results Test Name Value Interpretation Reference Range Facility [id number] 09-06-2024 [id number] HNO ID: [id number] Author: MIS MONTGOMERY PT Service: ? Author Type: Physical Therapist Type: [id number] Filed: 09/06/2024 19:10 Note Text: [facility] Physical Therapy Plan of Care Certification Patient Name: Markus Stratton : 1955 [facility] #: [id number] Date: 09/06/2024 To: Nikki Javier MD From Therapist: Mis Montgomery PT RE: Patient Certification/ Recertification Your review, approval and electronic signature are required in order to comply with Payor: [employer] MEDICARE / Plan: [employer] MEDICARE PPO / Product Type: PPO / regulations. The identified Physical Therapy PLAN OF CARE for the patient is as follows: G20.A1 Parkinson's disease without dyskinesia or fluctuating manifestations (HCC) PLAN OF CARE: Assessment: Markus Stratton presents with diagnosis of Parkinson's that interferes with stair negotiation, physical activities, walking in the community, recreational activities, working (walking slowly) . The patient presents with impairments in flexibility, gait, independence in exercise, overall function, posture, and symptom management. PROMIS? (Patient-Reported Outcomes Measurement Information System) scores were reviewed and identified as within normal limits. Prognosis for therapy is Good due to: current objective clinical presentation, good overall health status, good support system/ coping skills Fair due to: chronic nature of impairments . He presents with mild deficits related to his PD/Parkinsonism but also presents with posture AND flexibility deficits affecting his gait AND mobility; he also presents with core weakness (abdominals AND scap stabilizers). The patient will benefit from skilled therapy services to meet the goals established for this plan of care as noted below. Classification Diagnosis Grouping: Parkinson?s Disease Movement System Diagnosis: Hypokinesia Goals for Episode of Care: established 09/06/24 Patient will increase strength of abdominals AND scap stabilizers to allow patient to improve gait mechanics/gait pattern and improve ability to complete ADLs. Patient will increase flexibility of B LEs AND neck/shoulder muscles to WNL to improve ability to maintain proper posture and improve mechanics for gait. Patient will be able to correct postural deviations independently in order to improve postural alignment of trunk during ambulation, sitting, standing, and functional activities and allow for normal mechanics. Patient will demonstrate current home exercise program independently. Patient will improve average gait speed on Six Minute Walk Test to WNL to demonstrate improved endurance and community ambulation. Patient Goals: I have no clue Time Frame for Goals and Treatment : 11/05/24 Planned Interventions, Frequency, and Duration: Current Frequency: 1x/week Duration: 8 weeks Total Number of Visits Planned: 6 Planned Treatment Interventions: Therapeutic exercise (90834), Neuromuscular re-education (84498), Therapeutic activities (50400), Self-fpc management (02750), Gait Training (93226), Patient/Family/Caregiver Education, Body Mechanics Training PLAN FOR NEXT VISIT: address posture, flexibility AND gait Patient demonstrates fair understanding of plan of care and treatment. The above goals and plan of care were discussed and agreed upon by patient/family. For further details regarding this patient refer to the Physical Therapy electronically documented visit dated 09/06/2024. Provider Attestation I have reviewed the treatment plan for Markus Chayito, [facility]# [id number] for the period of 09/06/24 -- 11/05/24, established on 09/06/2024. Signature certifies the need for therapy services. Normal [facility] CNTHERAPYon 09-06-2024 CNTHERAPY OT/PT/Speech Visit ( LDPT) MARKUS STRATTON ([id number]) 1955 M T Date Time Provider Department 09/06/24 4:30 PM MIS MONTGOMERY LDPT Date Time Provider Department Center 09/06/2024 4:30 PM [id number], CARLA LDPT [facility] Reason for Visit: PT Eval [747] Primary Visit Diagnosis:Posture abnormality [R29.3] Other Visit Diagnosis:Parkinson's disease without dyskinesia or fluctuating manifestations (HCC) [G20.A1] Allergies As of Date: 09/06/2024 (No Known Allergies) Date Reviewed: 08/05/2024 Reviewed by: Shakira Pal LPN - Fully Assessed Prescriptions as of 09/06/2024 - vitamin B complex (B COMPLEX 1 ORAL) Take by mouth once daily. - melatonin 10 mg tab Take 10 mg by mouth daily at bedtime. - carbidopa-levodopa (SINEMET) 25-100 mg per tablet Take 2 tablets by mouth three times a day. - benzonatate (TESSALON PERLE) 100 mg capsule Take 1 capsule by mouth three times a day as needed. - gabapentin (NEURONTIN) 300 mg capsule Take 1 pill in the evening and 2 pills at bedtime - lisinopril (ZESTRIL) 10 mg tablet Take 1 tablet by mouth once daily. - aspirin 325 mg ORAL tablet Take 1 tablet by mouth once daily. Hydrology Technician: Addendum Therapy (PT/OT/Speech/Resp) ID: [id number] 09/06/2024 7:18 PM Author: MIS MONTGOMERY Signed by MIS MONTGOMERY PT on 09/06/2024 at 7:18 PM * * * This document replaces document [id number] * * * Document text: Program_ID:[id number] Access Code: [email or web address] URL: [email or web address] Date: 09-06-2024 Prepared By: Mis Montgomery Program Notes Exercises - Standing Hamstring Stretch on Chair - 3 x daily - 7 x weekly - 1 sets - 2 reps - Standing Hip Flexor Stretch - 2-3 x daily - 5-6 x weekly - 2 sets - 1 reps - Supine Lower Trunk Rotation - 1 x daily - 4-5 x weekly - 2-3 sets - 10 reps - Seated Cervical Retraction and Extension - 1 x daily - 4-5 x weekly - 2-3 sets - 10 reps - Seated Scapular Retraction - 1 x daily - 4-5 x weekly - 2-3 sets - 10 reps - Single Arm Doorway Pec Stretch at 120 Degrees Abduction - 1 x daily - 4-5 x weekly - 2-3 sets - [address] [facility] THERAPY NTon 09-06-2024 THERAPY NT HNO ID: [id number] Author: MIS MONTGOMERY PT Service: Physical Therapy Author Type: Physical Therapist Type: Therapy (PT/OT/Speech/Resp) Filed: 09/06/2024 19:18 Note Text: Program_ID:[id number] Access Code: [email or web address] URL: [email or web address] Date: 09-06-2024 Prepared By: Mis Montgomery Program Notes Exercises - Standing Hamstring Stretch on Chair - 3 x daily - 7 x weekly - 1 sets - 2 reps - Standing Hip Flexor Stretch - 2-3 x daily - 5-6 x weekly - 2 sets - 1 reps - Supine Lower Trunk Rotation - 1 x daily - 4-5 x weekly - 2-3 sets - 10 reps - Seated Cervical Retraction and Extension - 1 x daily - 4-5 x weekly - 2-3 sets - 10 reps - Seated Scapular Retraction - 1 x daily - 4-5 x weekly - 2-3 sets - 10 reps - Single Arm Doorway Pec Stretch at 120 Degrees Abduction - 1 x daily - 4-5 x weekly - 2-3 sets - [address] [facility] CNPNon 08-18-2024 CNPN Telephone (NEADMN) MARKUS STRATTON ([id number]) 1955 M [facility] Date Time Provider Department 08/18/24 NIKKI JAVIER During your visit today, we recorded the following information about you: Roberta Paris 08/18/2024 9:56 AM Signed Call received for Nikki Javier MD regarding Markus Stratton 1955. Caller: Self Patient Identified by Name and : Yes Was permission obtained from patient ? NA Reason for Call: Other: Carlitos wanted to inform Dr. Javier that he is doing well with his current medication. His symptoms are improving, and he feels more energetic throughout the day. Last Office Visit: 08/05/2024 Last [facility] visit: Visit date not found Next scheduled appointment: 02/21/2025 Best number to reach caller: [phone] Best time to reach caller: any Is it OK to leave a detailed voice message? Yes Roberta Nikki Marshall MD 08/18/2024 10:18 AM Signed Thanks for the update. Can you let him know if he is feeling good he can stop at whatever dose he is taking now? He was given leeway to titrate as high as 2 pills three times a day but I think he's only at 1 pill TID right now. We discussed stopping if he feels well but want to make sure he remembers! Thanks Val Swan RN 08/18/2024 10:58 AM Signed This RN called and spoke to patient and relayed TW's recommendations. Pt is apprehensive to go off completely. But did state that this is the goal he and TW discussed. States that he is taking C/L 25-100 mg 1 tablet BID. States that the third administration keeps him up all night so he does not take it. Will report back in one week as to how he is feeling off of the medication. We ended call pleasantly. GAY Moy, RN, Nikki Lang MD 08/18/2024 11:33 AM Signed May have miscommunicated, he doesn't need to stop it, only stop the titration at the dose that is helping and then continue on that dose rather than continuing to increase. If he feels good on 1 pill twice a day should stay on that dose. Val Swan RN 08/18/2024 12:04 PM Signed This RN placed call back to patient and relayed that TW would like him to stay at current dose that he feels good at (1 tablet BID). No need to continue the titration. Pt appreciated call back to verify. We ended call pleasantly. AGY Moy, RN, Nikki Lang MD 08/19/2024 11:33 AM Signed No worries, thanks Allergies As of Date: 08/18/2024 (No Known Allergies) Date Reviewed: 08/05/2024 Reviewed by: Shakira Pal LPN - Fully Assessed Reason for Visit: Patient Update [1234] Prescriptions as of 08/19/2024 - vitamin B complex (B COMPLEX 1 ORAL) Take by mouth once daily. - melatonin 10 mg tab Take 10 mg by mouth daily at bedtime. - carbidopa-levodopa (SINEMET) 25-100 mg per tablet Take 2 tablets by mouth three times a day. - benzonatate (TESSALON PERLE) 100 mg capsule Take 1 capsule by mouth three times a day as needed. - gabapentin (NEURONTIN) 300 mg capsule Take 1 pill in the evening and 2 pills at bedtime - lisinopril (ZESTRIL) 10 mg tablet Take 1 tablet by mouth once daily. - aspirin 325 mg ORAL tablet Take 1 tablet by mouth once daily. Problem List As Of Date 08/18/2024 Noted Resolved ED (erectile dysfunction) [N52.9] 01/23/2011 Stress and adjustment reaction [F43.29] 04/07/2014 10/30/2017 Carpal tunnel syndrome, bilateral [G56.03] 08/06/2015 Dupuytren's contracture of both hands [M72.0] 08/07/2015 Essential hypertension [I10] 08/14/2015 Anxiety and depression [F41.9, F32.A] 08/14/2015 Non morbid obesity due to excess calories [E66.*08/14/2015 Pain in right wrist [M25.531] 09/13/2015 10/30/2017 Stiffness of left wrist joint [M25.632] 11/28/2015 10/30/2017 Trigger ring finger of left hand [M65.342] 08/26/2017 Neck pain [M54.2] 09/09/2017 10/30/2017 RLS (restless legs syndrome) [G25.81] 09/08/2023 Encounter Status:Closed by VAL SWAN on 08/18/24 [facility] CNOVon 08-05-2024 CNOV Office Visit (NEUSTF ) MARKUS STRATTON ([id number]) 1955 M [facility] Date Time Provider Department 08/05/24 12:00 PM NIKKI JAVIER During your visit today, we recorded the following information about you: Temperature Pulse Blood pressure Weight 98 degrees 61/minute 144/87 90.9 kg Kacy Wood LPN 08/05/2024 3:11 PM Signed Nikki Javier MD 08/05/2024 3:11 PM Signed FOLLOW UP NOTE Subjective Markus Stratton is a 69 year old male who presents for follow up. CC: PD, RLS Summary of prior care: 10/2023 right-handed male with a history of RLS and family history of PD who presents for evaluation of possible parkinsonism. 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 Presentation c/w PD. Placed referral to PT and OT for PD therapy. Start levodopa titrate to 200 mg TID, discussed side effects and proper timing. Gave info on PD research at [facility]. 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 90 tablet 3 pramipexole (MIRAPEX) 0.5 mg tablet Take 1 tablet by mouth daily at bedtime. 90 tablet 1 aspirin 325 mg ORAL tablet Take 1 tablet by mouth once daily. 0 vitamin B complex (B COMPLEX 1 ORAL) Take by mouth once daily. melatonin 10 mg tab Take 10 mg by mouth daily at bedtime. benzonatate (TESSALON PERLE) 100 mg capsule Take 1 capsule by mouth three times a day as needed. (Patient not taking: Reported on 08/05/2024) 30 capsule 0 No current facility-administered medications for this visit. Objective OBJECTIVE 08/05/24 1135 BP: 144/87 BP Position: Sitting Pulse: 61 Temp: 36.7 ?C (98 ?F) TempSrc: Temporal SpO2: 96% Weight: 90.9 kg (200 lb 6.4 oz) General: General Appearance: Well appearing, alert, in no acute distress, well-hydrated, well nourished. Head: Normocephalic Neck: Supple Heart: RRR Neurologic Exam: Mental Status: He is alert. He is fully oriented. Attention is mildly impaired. Memory is intact. Language shows normal comprehension and fluency. Affect is appropriate. Cranial Nerves: Extraocular movements show full and smooth pursuits. No nystagmus. Visual carpio are full to confrontation. Facial sensation is intact. Facial activation is symmetric. Hearing is intact to conversation. There is mild hypomimia. There is mild hypophonia. There is no dysarthria. Shoulder shrug is slightly delayed on left. Motor: Muscle bulk is normal. No tremor. Mod L>R bradykinesia. Mild rigidity. Off medicine today Coordination: Finger to nose is smooth without ataxia. Gait/station: Normal mahi, narrow base, mildly decreased arm swing on L>R, mildly stooped DATA REVIEW Actual films/image/tracing reviewed and summarized as follows: n/a Old records reviewed and summarized as follows: n/a Assessment/Plan ASSESSMENT AND PLAN: Markus Stratton is a 69 year old right-handed male with a history of RLS and family history of PD who presents for evaluation of possible parkinsonism. 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 1. PD - Has noticed worsening PD symptoms - Resume levodopa titrate to 200 mg TID - Encouraged exercise, placed referral for PT / OT 2. RLS - Increase gabapentin to 300 mg around dinner and 600 mg 90 minutes before bedtime Follow-up: 5 months Risks AND Side Effects of Newly Prescribed Medication, Discussed with Patient: YES Nikki Javier MD [facility] Neurology Nikki Javier MD 08/05/2024 12:22 PM Signed Let's start a medication called carbidopa/levodopa. It's a symptomatic medication for Parkinson's Disease that helps replace dopamine to improve movement symptoms. Take a half pill three times a day for the first week, then increase to a full pill three times a day. Depending on how you respond you can go up to 1.5 pills three times a day after a few weeks, and then 2 pills three times a day after a few more weeks if no benefit or side effects. It works best when taken before meals, but if you get nauseous when taking it, eating a snack with it (preferably without protein) is ok. Watch out for side effects such as nausea, light-headedness, hallucinations, fatigue, or extra movements (dyskinesia). Breakfast Lunch Dinner Week 1 03/25 03/25 03/25 Week 2-3 1 1 1 Week 4-5 1.5 1.5 1.5 Week 6 and on You can stop at a lower dose if you feel great on it or have side effects Add a third pill of gabapentin - take 1 around 6 (more content not included)... Normal [facility] 05-10-2024 [facility] Telephone (KYWS) MARKUS STRATTON ([id number]) 1955 M [facility] Date Time Provider Department 05/10/24 CHRISTO WARREN [facility] During your visit today, we recorded the following information about you: Ignacia Bryant, GEOVANNA 05/10/2024 10:38 AM Signed Patient calling to request different cough medication. Patient was seen at [facility] [place] on 05/01/24 for cough and azithromycin and benzonatate was ordered for him. Reports the benzonatate does not help his cough. Reports I cough and cough and cough. States he has tried several OTC medications- most recently Delsym, not effective. Taking Mucinex DM. No worsening of any other sx's. Reports cough is dry. Denies fever, chills, sinus pressure, chest pain, N/V/D, headache dizziness, wheezing or SOB. Uses [facility]. Please call patient with PCP response. [phone] GEOVANNA Johnson William J, MD 05/10/2024 11:36 AM Signed Given his parkinson's issues and bp, we are limited with cough meds. Almost all the cough meds are now over the counter. I would recommend sticking with delsym or mucinex dm Clau Fam LPN 05/10/2024 12:30 PM Signed Patient notified. Allergies As of Date: 05/10/2024 (No Known Allergies) Date Reviewed: 05/01/2024 Reviewed by: Meron Cooper APRN.LANDING SUPPORT SPECIALIST - Fully Assessed Reason for Visit: Patient Request [[id number]] Prescriptions as of 05/10/2024 - benzonatate (TESSALON PERLE) 100 mg capsule Take 1 capsule by mouth three times a day as needed. - gabapentin (NEURONTIN) 300 mg capsule Take 1 pill in the evening and 2 pills at bedtime - lisinopril (ZESTRIL) 10 mg tablet Take 1 tablet by mouth once daily. - pramipexole (MIRAPEX) 0.5 mg tablet Take 1 tablet by mouth daily at bedtime. - aspirin 325 mg ORAL tablet Take 1 tablet by mouth once daily. Problem List As Of Date 05/10/2024 Noted Resolved ED (erectile dysfunction) [N52.9] 01/23/2011 Stress and adjustment reaction [F43.29] 04/07/2014 10/30/2017 Carpal tunnel syndrome, bilateral [G56.03] 08/06/2015 Dupuytren's contracture of both hands [M72.0] 08/07/2015 Essential hypertension [I10] 08/14/2015 Anxiety and depression [F41.9, F32.A] 08/14/2015 Non morbid obesity due to excess calories [E66.*08/14/2015 Pain in right wrist [M25.531] 09/13/2015 10/30/2017 Stiffness of left wrist joint [M25.632] 11/28/2015 10/30/2017 Trigger ring finger of left hand [M65.342] 08/26/2017 Neck pain [M54.2] 09/09/2017 10/30/2017 RLS (restless legs syndrome) [G25.81] 09/08/2023 Medications Discontinued During This Encounter Prescriptions - carbidopa-levodopa (SINEMET) 25-100 mg per tablet (Discontinued) Take 2 tablets by mouth three times a day. Encounter Status:Closed by CLAU FAM on 05/10/24 [facility] CNOVon 05-01-2024 CNOV Office Visit (UCMMAS ) MARKUS STRATTON ([id number]) 1955 M [facility] Date Time Provider Department 05/01/24 2:40 PM MERON COOPER During your visit today, we recorded the following information about you: Temperature Pulse Respiration Blood pressure 97.9 degrees 69/minute 20/minute 142/92 Meron Cooper APRN.LANDING SUPPORT SPECIALIST 05/01/2024 3:07 PM Signed Body aches/Pain/Fever Acetaminophen/Tylenol not to exceed 3000mg in a 24 hour period and or Ibuprofen/Motrin 600mg every 6 hours not to exceed 2400mg in a 24 hour period if no history of gastrointestinal bleeding or ulcers for pain/discomfort of fever. Sore throat: Warm beverages with honey, salt water gargles, Chloraseptic spray, throat lozenges. Congestion: Nasal sprays like Flonase or normal saline can also help. Coricidin for patient with Hypertension (high blood pressure) If any worsening of condition please be re-evaluated if having shortness of breath or not able to keep down fluids please go to the emergency room. Meron Cooper APRN.CNP 05/01/2024 3:10 PM Signed Markus Patriciapito is a 68 year old male who presents with Cough (Nasal congestion/drainage all x 1 1/2 weeks) 68 year old male present today for cough for 1.5 weeks. Patient states cough is dry. Patient denies any fevers, chills no sinus pressure. Patient denies any nausea or vomiting. Patient has no hx of respiratory disorders. Cough Pertinent negatives include no chills, no weight loss, no shortness of breath and no wheezing. PAST MEDICAL HISTORY Diagnosis Date Anxiety and depression Chronic insomnia HTN (hypertension) Obese Primary hypertension RLS (restless legs syndrome) ACTIVE PROBLEM LIST Ed (Erectile Dysfunction) Carpal Tunnel Syndrome, Bilateral Dupuytren's Contracture of Both Hands Essential Hypertension Anxiety and Depression Non Morbid Obesity Due to Excess Calories Trigger Ring Finger of Left Hand Rls (Restless Legs Syndrome) Current Outpatient Medications Medication Sig Dispense Refill gabapentin (NEURONTIN) 300 mg capsule Take 1 pill in the evening and 2 pills at bedtime 270 capsule 2 lisinopril (ZESTRIL) 10 mg tablet Take 1 tablet by mouth once daily. 90 tablet 3 pramipexole (MIRAPEX) 0.5 mg tablet Take 1 tablet by mouth daily at bedtime. 90 tablet 1 carbidopa-levodopa (SINEMET) 25-100 mg per tablet Take 2 tablets by mouth three times a day. 540 tablet 1 aspirin 325 mg ORAL tablet Take 1 tablet by mouth once daily. 0 benzonatate (TESSALON PERLE) 100 mg capsule Take 1 capsule by mouth three times a day as needed. 30 capsule 0 azithromycin (ZITHROMAX) 250 mg tablet Take 2 tablets by mouth once daily for 1 day, THEN 1 tablet once daily for 4 days. 6 tablet 0 No current facility-administered medications for this visit. Social History Tobacco Use Smoking status: Never Smokeless tobacco: Never Vaping Use Vaping status: Never Used Substance Use Topics Alcohol use: Not Currently Comment: occasionally Drug use: Never Alcohol Use: Not Currently (occasionally) Tobacco Use: Never FAMILY HISTORY Problem Relation Age of Onset No Known Problems Mother Leukemia Father No Known Problems Sister Parkinson?s Disease Brother No Known Problems Maternal Grandmother No Known Problems Maternal Grandfather No Known Problems Paternal Grandmother No Known Problems Paternal Grandfather Colon Cancer Daughter Review of Systems Constitutional: Negative for chills, diaphoresis, fever, malaise/fatigue and weight loss. Respiratory: Positive for cough. Negative for hemoptysis, sputum production, shortness of breath and wheezing. BP 142/92 Pulse 69 Temp 97.9 Resp 20 SpO2 97% Physical Exam Vitals and nursing note reviewed. Constitutional: General: He is not in acute distress. Appearance: Normal appearance. He is not ill-appearing, toxic-appearing or diaphoretic. HENT: Head: Normocephalic. Nose: Nose normal. Mouth/Throat: Mouth: Mucous membranes are moist. Cardiovascular: Rate and Rhythm: Normal rate and regular rhythm. Pulses: Normal pulses. Heart sounds: Normal heart sounds. Pulmonary: Effort: Pulmonary effort is normal. No respiratory distress. Breath sounds: Normal breath sounds. No stridor. No wheezing, rhonchi or rales. Chest: Chest wall: No tenderness. Musculoskeletal: Cervical back: Normal range of motion. No rigidity. Lymphadenopathy: Cervical: No cervical adenopathy. Skin: General: Skin is dry. Capillary Refill: Capillary refill takes less than 2 seconds. Neurological: Mental Status: He is alert. Procedures ASSESSMENT/PLAN: 1. Bronchitis - ICD9: 490, ICD10: J40 - BENZONATATE 100 MG CAPSULE - AZITHROMYCIN 250 MG TABLET If worsening of condition shortness or breath, fever chill please go to ER for evaluation. Meron Cooper APRN.LANDING SUPPORT SPECIALIST This note was partially (more content not included)... [facility] CNOVon 04-19-2024 CNOV Office Visit ([facility] ) CHAYITOMARKUS ([id number]) 1955 M [facility] Date Time Provider Department 04/19/24 11:30 AM NIKKI JAVIER [facility] During your visit today, we recorded the following information about you: Temperature Pulse Blood pressure Weight 97 degrees 62/minute 155/98 94 kg Nikki Javier MD 04/19/2024 1:14 PM Signed FOLLOW UP NOTE Subjective Markus Stratton is a 68 year old male who presents for follow up. CC: PD, RLS Summary of prior care: 10/2023 right-handed male with a history of RLS and family history of PD who presents for evaluation of possible parkinsonism. 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 Presentation c/w PD. Placed referral to PT and OT for PD therapy. Start levodopa titrate to 200 mg TID, discussed side effects and proper timing. Gave info on PD research at [facility]. HPI Current Issues - No clear benefit to levodopa - No side effects - Takes first dose around 8773-9050, second dose around 6338-0107 Generally does not take the mid-day dose - Didn't do therapy, not sure he needs to right now - Feels like his thoughts are slow coming out, hard to come up with things - Having RLS at night, lasts 30-45 minutes before he can get to sleep, often has to get up and walk around. Starts around 2100, bedtime around 2300, takes pramipexole around 2100 Current Outpatient Medications Medication Sig Dispense Refill lisinopril (ZESTRIL) 10 mg tablet Take 1 tablet by mouth once daily. 90 tablet 3 pramipexole (MIRAPEX) 0.5 mg tablet Take 1 tablet by mouth daily at bedtime. 90 tablet 1 carbidopa-levodopa (SINEMET) 25-100 mg per tablet Take 2 tablets by mouth three times a day. 540 tablet 1 aspirin 325 mg ORAL tablet Take 1 tablet by mouth once daily. 0 gabapentin (NEURONTIN) 300 mg capsule Take 1 pill in the evening and 2 pills at bedtime 270 capsule 2 No current facility-administered medications for this visit. Objective OBJECTIVE 04/19/24 1057 BP: 155/98 Pulse: 62 Temp: 36.1 ?C (97 ?F) TempSrc: Tympanic SpO2: 97% Weight: 94 kg (207 lb 5.5 oz) General: General Appearance: Well appearing, alert, in no acute distress, well-hydrated, well nourished. Head: Normocephalic Neck: Supple Heart: RRR Neurologic Exam: Mental Status: He is alert. He is fully oriented. Attention is mildly impaired. Memory is intact. Language shows normal comprehension and fluency. Affect is appropriate. Cranial Nerves: Extraocular movements show full and smooth pursuits. No nystagmus. Visual carpio are full to confrontation. Facial sensation is intact. Facial activation is symmetric. Hearing is intact to conversation. There is mild hypomimia. There is mild hypophonia. There is no dysarthria. Shoulder shrug is slightly delayed on left. Motor: Muscle bulk is normal. Trace L>R tremor more HF / LA subtle. Mod L>R bradykinesia. No rigidity. Last levodopa 200 mg at 0700, exam 1135 Coordination: Finger to nose is smooth without ataxia. Gait/station: Normal mahi, narrow base, mildly decreased arm swing on L>R, mildly stooped DATA REVIEW Actual films/image/tracing reviewed and summarized as follows: n/a Old records reviewed and summarized as follows: n/a Assessment/Plan ASSESSMENT AND PLAN: Markus Stratton is a 68 year old right-handed male with a history of RLS and family history of PD who presents for evaluation of possible parkinsonism. 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 1. PD - No clear benefit to levodopa 200 mg BID - Currently not overly bothered by symptoms - Decided to taper off levodopa to see if providing any benefit. If feels worse without it can return to helpful dose - Encouraged exercise 2. RLS - Sounds like getting some augmentation and incomplete benefit with pramipexole - Will change pramipexole to gabapentin, titrate up to 900 mg, discussed timing and side effects Follow-up: 6 months Risks AND Side Effects of Newly Prescribed Medication, Discussed with Patient: YES PDMP website checked and validated. All prescriptions have been APPROPRIATELY filled. No suspicious activity was identified. 04/19/2024 by MD Nikki Harrell MD [facility] Neurology Nikki Javier MD 04/19/2024 11:41 AM Addendum 1. With lack of benefit to the current levodopa and lack of clear need, lets try coming off of it - take 1 pill twice a day for a week then stop. If you feel worse you can go back to taking whatever dose was helping, and try timing it at three times a day around 7 AM, 12 PM, 5 PM. 2. Wait til you are off the carbidopa/levodopa, then let's change pramipexole over to gabapentin. I gave you 300 mg gabapentin - start with 1 pill at 9 PM, if no better after a few days go to 2 pills at 9 PM, and if still no better after a few days go to 1 pill at 8 PM and 2 pills 10 PM. Watch out for sleepiness with it. At the (more content not included)... Normal [facility] CNOVon 04-12-2024 CNOV Office Visit (FAMPWS ) MARKUS STRATTON ([id number]) 1955 [facility] Date Time Provider Department 04/12/24 8:40 AM CHRISTO WARREN FAMPWS During your visit today, we recorded the following information about you: Pulse Blood pressure Weight Height 67/minute 158/86 93.4 kg 1.626 m Christo Warren MD 04/12/2024 9:01 AM Signed Patient presents with: 6 Month Exam HPI: Patient presents today for office visit for routine 6 month follow up. HTN: Continues on Lisinopril 5 mg daily. Never misses doses. Was advised to monitor BP at home. He did not start doing this. No readings with him today. Denies chest pain and shortness of breath Denies headaches and dizziness Denies palpitations and syncope No edema Follows with Neuro. His total psa is improving. Can repeat in six months to a year. He is seeing neurology They are thinking he may have Parkinson's. Latest Ref Rng 03/29/2024 WBC 3.70 - 11.00 k/uL 10.61 RBC 4.20 - 6.00 m/uL 5.34 Hemoglobin 13.0 - 17.0 g/dL 15.1 Hematocrit 39.0 - 51.0 % 47.2 MCV 80.0 - 100.0 fL 88.4 MCH 26.0 - 34.0 pg 28.3 MCHC 30.5 - 36.0 g/dL 32.0 RDW-CV 11.5 - 15.0 % 13.4 Platelet Count 150 - 400 k/uL 261 MPV 9.0 - 12.7 fL 10.6 Neut% % 68.3 Abs Neut (ANC) 1.45 - 7.50 k/uL 7.24 Lymph% % 22.7 Abs Lymph 1.00 - 4.00 k/uL 2.41 [place]% % 6.4 Abs [place] <0.87 k/uL 0.68 Eosin% % 1.2 Abs Eosin <0.46 k/uL 0.13 Baso% % 0.8 Abs Baso <0.11 k/uL 0.09 Immature Gran % % 0.6 IMMATURE GRANS (ABS) <0.10 k/uL 0.06 NRBC /100 WBC 0.0 Absolute nRBC <0.01 k/uL <0.01 DTYPE Auto PSA <2.60 ng/mL 2.51 PSA, Percent Free % 12 MEDICATIONS: Current Outpatient Medications Medication Sig pramipexole (MIRAPEX) 0.5 mg tablet Take 1 tablet by mouth daily at bedtime. carbidopa-levodopa (SINEMET) 25-100 mg per tablet Take 2 tablets by mouth three times a day. lisinopril (ZESTRIL) 5 mg tablet Take 1 tablet by mouth once daily. aspirin 325 mg ORAL tablet Take 1 tablet by mouth once daily. No current facility-administered medications for this visit. ALLERGIES: ALLERGIES No Known Allergies PAST MEDICAL HISTORY Diagnosis Date Anxiety and depression Chronic insomnia HTN (hypertension) Obese Primary hypertension RLS (restless legs syndrome) PAST SURGICAL HISTORY Procedure Laterality Date APPENDECTOMY CARPAL TUNNEL Right 08/30/2015 COLONOSCOPY 06/2017 COLONOSCOPY SCREENING 07/14/2017 Dr. Mohan @ [facility]; Ascending colon polyp x1, biopsy- tubular adenoma; recommended repeat in 3 yrs TONSILLECTOMY HX VASECTOMY UNI/BI SPX W/POSTOP SEMEN EXAMS FAMILY HISTORY Problem Relation Age of Onset No Known Problems Mother Leukemia Father No Known Problems Sister Parkinson?s Disease Brother No Known Problems Maternal Grandmother No Known Problems Maternal Grandfather No Known Problems Paternal Grandmother No Known Problems Paternal Grandfather Colon Cancer Daughter Social History Tobacco Use Smoking status: Never Smokeless tobacco: Never Vaping Use Vaping status: Never Used Substance Use Topics Alcohol use: Not Currently Comment: occasionally Drug use: Never Reviewed current medications, allergies, past medical history, surgical history, family history and social history today. REVIEW OF SYSTEMS All other reviewed and negative other than HPI. HEALTH MAINTENANCE: Reviewed health maintenance issues today and recommended the following in detail. DTaP,Tdap,Td Vaccine(1 - Tdap) Never done Shingrix Vaccine(1 of 2) Never done Pneumococcal Vaccine: 50+(1 of 1 - PCV) Never done BP Controlled (<130/80) due on 10/30/2018 Colorectal Cancer Screening done Influenza Vaccine(1) due on 11/23/2023 Covid-19 Vaccine( season) due on 11/23/2023 Advance Directive Discussion-daughter, Anny Clemens. VITALS: BP 158/86 Pulse 67 Ht 162.6 cm (5' 4) Wt 93.4 kg (206 lb) BMI 35.36 kg/m? Last 4 Encounter Wt Readings: Date: Wt: 11/20/2023 91.7 kg (202 lb 2.6 oz) 11/17/2023 92 kg (202 lb 14.9 oz) 11/11/2023 93.8 kg (206 lb 12.7 oz) 10/06/2023 91.6 kg (202 lb) PHYSICAL EXAMINATION: General appearance: Well appearing, alert, in no acute distress, well-hydrated, well nourished. Skin: Skin color, texture, turgor normal, no suspicious rashes or lesions Head: Normocephalic, no masses, lesions, tenderness or abnormalities Eyes: Anicteric sclera. Pupils are equally round and reactive to light. Extraocular movements are intact. Ears: External ears normal, canals clear Lungs: Lungs clear to auscultation. No wheezing, rhonchi, rales Heart: RRR without murmur, gallop, or rubs. No ectopy Abdomen: Normal abdominal exam, Abdomen soft, non-tender. Bowel sounds normal. No masses, organomegaly Extremities: No deformities, edema, skin discoloration, clubbing or cyanosis. Good capillary refill. ASSESSMENT/PLAN: 1. Essential hypertension - (more content not included)... Normal [facility] CBC W Auto Differential pane l (Bld)on 03-29-2024 Basophils (Bld) [#/Vol] 0.09 10*3/uL Normal <0.11 [facility] Comment on above: Order Comment: Specimen Type: BLOOD SPEC IMEN Ordering Facility: [facility] Address: [address] [place] [address] Performed By: #### 5 7021-8 #### [facility] CLIA [id number] [address] [place] [address] [id number], [place] [address] [place] Basophils/100 WBC (Bld) 0.8 % Normal [facility] Comment on above: Order Comment: Specimen Type: BLOOD SPEC IMEN Ordering Facility: [facility] Address: [address] [place] [address] Performed By: #### 5 7021-8 #### [facility] CLIA [id number] [address] [place] [address] [place] Differential cell count method Nom (Bld) Auto Normal [facility] Comment on above: Order Comment: Specimen Type: BLOOD SPEC IMEN Ordering Facility: [facility] Address: [address] [place] [address] Performed By: #### 5 7021-8 #### [facility] CLIA [id number] [address] [place] [address] [place] Eosinophils (Bld) [#/Vol] 0.13 10*3/uL Normal <0.46 [facility] Comment on above: Order Comment: Specimen Type: BLOOD SPEC IMEN Ordering Facility: [facility] Address: [address] [place] [address] Performed By: #### 5 7021-8 #### [facility] CLIA [id number] [address] [place] [address] [place] Eosinophils/100 WBC (Bld) 1.2 % Normal [facility] Comment on above: Order Comment: Specimen Type: BLOOD SPEC IMEN Ordering Facility: [facility] Address: [address] [place] [address] Performed By: #### 5 7021-8 #### [facility] CLIA [id number] [address] [place] [address] [place] Erythrocyte distribution width (RBC) [Ratio] 13.4 % Normal 11.5-15.0 [facility] Comment on above: Order Comment: Specimen Type: BLOOD SPEC IMEN Ordering Facility: [facility] Address: [address] [place] [address] Performed By: #### 5 7021-8 #### [facility] CLIA [id number] [address] [place] [address] [place] Hematocrit (Bld) [Volume fraction] 47.2 % Normal 39.0-51.0 [facility] Comment on above: Order Comment: Specimen Type: BLOOD SPEC IMEN Ordering Facility: [facility] Address: [address] [place] [address] Performed By: #### 5 7021-8 #### [facility] CLIA [id number] [address] [place] [address] [place] Hemoglobin (Bld) [Mass/Vol] 15.1 g/dL Normal 13.0-17.0 [facility] Comment on above: Order Comment: Specimen Type: BLOOD SPEC IMEN Ordering Facility: [facility] Address: [address] [place] [address] Performed By: #### 5 7021-8 #### [facility] CLIA [id number] [address] [place] [address] [place] Immature granulocytes (Bld) [#/Vol] 0.06 10*3/uL Normal <0.10 [facility] Comment on above: Order Comment: Specimen Type: BLOOD SPEC IMEN Ordering Facility: [facility] Address: [address] [place] [address] Performed By: #### 5 7021-8 #### [facility] CLIA [id number] [address] [place] [address] [place] Immature granulocytes/100 WBC (Bld) 0.6 % Normal [facility] Comment on above: Order Comment: Specimen Type: BLOOD SPEC IMEN Ordering Facility: [facility] Address: [address] [place] [address] Performed By: #### 5 7021-8 #### [facility] CLIA [id number] [address] [place] [address] [place] Lymphocytes (Bld) [#/Vol] 2.41 10*3/uL Normal 1.00-4.00 [facility] Comment on above: Order Comment: Specimen Type: BLOOD SPEC IMEN Ordering Facility: [facility] Address: [address] [place] [address] Performed By: #### 5 7021-8 #### [facility] CLIA [id number] [address] [place] [address] [place] Lymphocytes/100 WBC (Bld) 22.7 % Normal [facility] Comment on above: Order Comment: Specimen Type: BLOOD SPEC IMEN Ordering Facility: [facility] Address: [address] [place] [address] Performed By: #### 5 7021-8 #### [facility] CLIA [id number] [address] [place] [address] [place] MCH (RBC) [Entitic mass] 28.3 pg Normal 26.0-34.0 [facility] Comment on above: Order Comment: Specimen Type: BLOOD SPEC IMEN Ordering Facility: [facility] Address: [address] [place] [address] Performed By: #### 5 7021-8 #### [facility] CLIA [id number] [address] [place] [address] [place] MCHC (RBC) [Mass/Vol] 32.0 g/dL Normal 30.5-36.0 [facility] Comment on above: Order Comment: Specimen Type: BLOOD SPEC IMEN Ordering Facility: [facility] Address: [address] [place] [address] Performed By: #### 5 7021-8 #### [facility] CLIA [id number] [address] [place] [address] [place] MCV (RBC) [Entitic vol] 88.4 fL Normal 80.0-100.0 [facility] Comment on above: Order Comment: Specimen Type: BLOOD SPEC IMEN Ordering Facility: [facility] Address: [address] [place] [address] Performed By: #### 5 7021-8 #### [facility] CLIA [id number] [address] [place] [address] [place] Monocytes (Bld) [#/Vol] 0.68 10*3/uL Normal <0.87 [facility] Comment on above: Order Comment: Specimen Type: BLOOD SPEC IMEN Ordering Facility: [facility] Address: [address] [place] [address] Performed By: #### 5 7021-8 #### [facility] CLIA [id number] [address] [place] [address] [place] Monocytes/100 WBC (Bld) 6.4 % Normal [facility] Comment on above: Order Comment: Specimen Type: BLOOD SPEC IMEN Ordering Facility: [facility] Address: [address] [place] [address] Performed By: #### 5 7021-8 #### [facility] CLIA [id number] [address] [place] [address] [place] Neutrophils (Bld) [#/Vol] 7.24 10*3/uL Normal 1.45-7.50 [facility] Comment on above: Order Comment: Specimen Type: BLOOD SPEC IMEN Ordering Facility: [facility] Address: [address] [place] [address] Performed By: #### 5 7021-8 #### [facility] CLIA [id number] [address] [place] [address] [place] Neutrophils/100 WBC (Bld) 68.3 % Normal [facility] Comment on above: Order Comment: Specimen Type: BLOOD SPEC IMEN Ordering Facility: [facility] Address: [address] [place] [address] Performed By: #### 5 7021-8 #### [facility] CLIA [id number] [address] [id number], [place] [address] [place] Nucleated RBC (Bld) [#/Vol] 10*3/uL Normal <0.01 [facility] Comment on above: Order Comment: Specimen Type: BLOOD SPEC IMEN Ordering Facility: [facility] Address: [address] [place] [address] Performed By: #### 5 7021-8 #### [facility] CLIA [id number] [address] [place] [address] [place] Nucleated RBC/100 WBC (Bld) [Ratio] 0.0 /100 WBC Normal [facility] Comment on above: Order Comment: Specimen Type: BLOOD SPEC IMEN Ordering Facility: [facility] Address: [address] [place] [address] Performed By: #### 5 7021-8 #### [facility] CLIA [id number] [address] [place] [address] [place] Platelet mean volume (Bld) [Entitic vol] 10.6 fL Normal 9.0-12.7 [facility] Comment on above: Order Comment: Specimen Type: BLOOD SPEC IMEN Ordering Facility: [facility] Address: [address] [place] [address] Performed By: #### 5 7021-8 #### [facility] CLIA [id number] [address] [place] [address] [place] Platelets (Bld) [#/Vol] 261 10*3/uL Normal 150-400 [facility] Comment on above: Order Comment: Specimen Type: BLOOD SPEC IMEN Ordering Facility: [facility] Address: [address] [place] [address] Performed By: #### 5 7021-8 #### [facility] CLIA [id number] [address] [place] [address] [place] RBC (Bld) [#/Vol] 5.34 10*6/uL Normal 4.20-6.00 [facility] Comment on above: Order Comment: Specimen Type: BLOOD SPEC IMEN Ordering Facility: [facility] Address: [address] [place] [address] Performed By: #### 5 7021-8 #### [facility] CLIA [id number] [address] [place] [address] [place] WBC (Bld) [#/Vol] 10.61 10*3/uL Normal 3.70-11.00 [facility] Comment on above: Order Comment: Specimen Type: BLOOD SPEC IMEN Ordering Facility: [facility] Address: [address] [place] [address] Performed By: #### 5 7021-8 #### [facility] CLIA [id number] [address] [place] [address] [place] Free PSA [Mass/Vol]on 2024 Free PSA/Total PSA [Mass fraction] 12 % Normal [facility] Comment on above: Order Comment: Specimen Type: BLOOD SPEC IMENOrdering Facility: [facility] Address: [address] [place] [address] Result Comment: Tota l and free PSA test methodology used is the Electrochemiluminescence Immunoassay by [employer]. Total or free PSA values by differing methodologies cannot be interchanged. The below table lists the probability of finding prostate cancer upon needle biopsy, for men 50 years or older and total PSA concentrations from 4.0-10.0 ng/mL. Results should be interpreted within the broader clinical context. Free PSA(%) 50-59 years 60-69 years >69 years <11 49.2% 57.5% 64.5% 11-18 26.9% 33.9% 40.8% 19-25 18.3% 23.9% 29.7% >25 9.1% 12.2% 15.8% Performed By: #### 1 0886-0 ####[facility] [id number] [place] [address] [place] Prostate specific Ag [Mass/Vol] 2.51 ng/mL Normal <2.60 [facility] Comment on above: Order Comment: Specimen Type: BLOOD SPEC IMENOrdering Facility: [facility] Address: [address] [facility] [place] [place] [address] Result Comment: Tota l PSA test methodology used is the Electrochemiluminescence Immunoassay by [employer]. Total PSA values by differing methodologies cannot be interchanged. Performed By: #### 1 0886-0 ####[facility] [id number] [facility] [id number] [id number] [place] Colonoscopy Reporton 024 Colonoscopy Report [facility] Medical Records Department [address] [place] [address] Colonoscopy Report MR#: [id number] Acct: [id number] Name: MARKUS STRATTON Rep #: [id number] : 1955 68 From: Mohan Adhikari MD PCP: Dr. Christo Warren MD Status:[facility] Patient Name: Markus Stratton Procedure Date: 02/13/2024 8:28 AM Date of : 1955 Age: 68 Procedure: Colonoscopy Indications: High risk colon cancer surveillance: Personal history of adenoma less than 10 mm in size, Family history of colon cancer in a first-degree relative before age 60 years Providers: Mohan Adhikari MD Referring MD: Christo Warren Medicines: See the Anesthesia note for documentation of the administered medications Patient Profile: Refer to note in patient chart for documentation of history and physical. Last Colonoscopy: several years ago. Complications: No immediate complications. Estimated blood loss: Minimal. Procedure: Pre-Anesthesia Assessment: - The heart rate, respiratory rate, oxygen saturations, blood pressure, adequacy of pulmonary ventilation, and response to care were monitored throughout the procedure. After I obtained informed consent, the scope was passed under direct vision. Throughout the procedure, the patient's blood pressure, pulse, and oxygen saturations were monitored continuously. The Colonoscope was introduced through the anus and advanced to the cecum, identified by the appendiceal orifice, ileocecal valve and palpation. The colonoscopy was performed without difficulty. The patient tolerated the procedure well. The quality of the bowel preparation was adequate to identify polyps. Scope In: 8:49:07 AM Scope Withdrawal Time 0 hours 27 minutes 56 seconds Scope Out: 9:22:19 AM Total Procedure Duration Time 0 hours 33 minutes 12 seconds Findings: Skin tags were found on perianal exam. Enlarged prostate, No biopsies or other specimens were collected for this exam. Two semi-pedunculated, non-bleeding polyps were found in the proximal transverse colon and distal transverse colon. The polyps were 5 to 10 mm in size. These polyps were removed with a hot snare. Resection and retrieval were complete. Estimated blood loss: none. A few small-mouthed diverticula were found in the sigmoid colon. No biopsies or other specimens were collected for this exam. A 3 mm polyp was found in the recto-sigmoid colon. The polyp was semi-sessile. Biopsies were taken with a cold forceps for histology. Estimated blood loss was minimal. A 7 mm polyp was found in the rectum. The polyp was semi-pedunculated. The polyp was removed with a hot snare. Resection and retrieval were complete. Estimated blood loss: none. The exam was otherwise without abnormality on direct and retroflexion views. Impression: - Perianal skin tags found on perianal exam. - Two 5 to 10 mm, non-bleeding polyps in the proximal transverse colon and in the distal transverse colon, removed with a hot snare. Resected and retrieved. - Diverticulosis in the sigmoid colon. No specimens collected. - One 3 mm polyp at the recto-sigmoid colon. Biopsied. - One 7 mm polyp in the rectum, removed with a hot snare. Resected and retrieved. - The examination was otherwise normal on direct and retroflexion views. Recommendation: - Discharge patient to home (via wheelchair). - High fiber diet today. - No aspirin, ibuprofen, naproxen, or other non-steroidal anti-inflammatory drugs for 2 days after polyp removal. - Await pathology results. - Repeat colonoscopy date to be determined after pending pathology results are reviewed. - Telephone my office for pathology results in 1 week. Procedure Code(s): --- Professional --- 14220, Colonoscopy, flexible; with removal of tumor(s), polyp(s), or other lesion(s) by snare technique 16938, 59, Colonoscopy, flexible; with biopsy, single or multiple Diagnosis Code(s): --- Professional --- Z86.010, Personal history of colonic polyps D12.3, Benign neoplasm of transverse colon (hepatic flexure or splenic flexure) D12.7, Benign neoplasm of rectosigmoid junction D12.8, Benign neoplasm of rectum K64.4, Residual hemorrhoidal skin tags Z80.0, Family history of malignant neoplasm of digestive organs K57.30, Diverticulosis of large intestine without perforation or abscess without bleeding CPT copyright 2021 [employer]. All rights reserved. The codes documented in this report are preliminary and upon extrusion former review may be revised to meet current compliance requirements. Mohan Adhikari MD 02/13/2024 9:31:56 AM This report has been signed electronically. Number of Addenda: 0 Note Initiated On: 02/13/2024 8:28 AM 02/13/24931 Date Mohan Adhikari MD Cosigner Signature: Date (more content not included)... [facility] MR/POSTOP.[facility] 02-13-2024 MR/POSTOP.[facility] Medical Records Department [address] [place] [address] Anesthesia Postop Eval I 02/13/2434 MR#: [id number] Acct: [id number] Name: MARKUS STRATTON Rep #: [id number] : 1955 68 From: [place] No PCP: Dr. Christo Warren MD Status:REG SDC Y Race: C Location: [place] [address] Anesthesia: Postop Eval I Current Vital Signs Temperature: 98.1 F Pulse Rate: 64 Blood Pressure: 111/72 Respiratory Rate: 16 Pulse Ox: 91 Oxygen Delivery Method: Room Air Assessment Airway patent: Yes Spontaneous unlabored respirations: Yes Mental status: Asleep nausea: No Vomiting: No Anesthesia Complication: No Fluid Hydration Crystalloid volume administer (ml): 90 Total IV fluid infused: 90 Progress Note Anesthesia document: Postop Eval 1 completed: Yes 02/13/2435 Date [place] No Cosigner Signature: Date CC: Signed Normal [facility] MR/[id number] 02-13-2024 MR/POSTOPAN2 [facility] Medical Records Department [address] [place] [address] Anesthesia Postop Eval II 02/13/24 1308 MR#: [id number] Acct: [id number] Name: MARKUS STRATTON Rep #: [id number] : 1955 68 From: Facundo Hough MD PCP: Dr. Christo Warren MD Status:[facility] Y Race: C Location: EN Anesthesia Postop Eval I Sum Postop Eval Completion status Anesthesia document: Postop Eval 1 completed: Yes Anesthesia Postop Eval I Summary Anesthesia Postop Eval I Summary: Anesthesia Postop Eval I: Assessment Summary Airway patent Yes 02/13/24 09:35 [email or web address] Spontaneous unlabored Yes 02/13/24 09:35 [email or web address] respirations Mental status Asleep 02/13/24 09:35 [email or web address] nausea No 02/13/24 09:35 [email or web address] Vomiting No 02/13/24 09:35 [email or web address] Anesthesia Postop Eval I: Fluid Summary Crystalloid volume administer 90 02/13/24 09:35 [email or web address] (ml) Colloids volume administered ( ml) Blood Product volume administered (ml) Total IV fluid infused 90 02/13/24 09:35 [email or web address] Anesthesia Postop Eval I: Summary Notes Anesthesia Complication No 02/13/24 09:35 [email or web address] Anesthesia Complication Comment: Post-operative progress note Anesthesia: Postop Eval II Evaluation Mental status: Awake Pain Level: 0 nausea: No Vomiting: No 02/13/24 1308 Date Facundo Hough MD Cosigner Signature: Date CC: Signed Normal [facility] Surgery Specimen Level Michael 02-13-2024 Surgery Specimen Level IV -------- Patient Age/Sex Location Account Attending Physician -------- MARKUS STRATTON 68/M EN [id number] Dr. Mohan Adhikari MD -------- Specimen: [id number] Received: 02/13/24 Status: MICHELLE Godwin Num: [id number] Spec Type: EGD BIOPSY Subm Dr: Dr. Mohan Adhikari MD HEADER OPERATION: Colonoscopy and polypectomy PRE-OP DIAGNOSIS: History of colonic polyps TISSUE SUBMITTED: A- Transverse colon polyp, B- Distal transverse colon polyp, C- Recto sigmoid polyp, D- Rectal polyp -------- MICROSCOPIC DIAGNOSIS A. Transverse colon polyp, biopsy: Fragments of tubular adenoma. B. Distal transverse colon polyp, biopsy: A fragment of benign colonic mucosa with focal hyperplastic change. C. Rectosigmoid colon polyp, biopsy: Hyperplastic polyp. D. Rectal polyp, biopsy: Fragments of tubular adenoma. AM. 02/16/2024 MICROSCOPIC DESCRIPTION Slides are reviewed. GROSS DESCRIPTION A. Received in fixative is one container labeled with the patient's name and designated Transverse colon polyp. The specimen consists of two irregular fragments of light chacko soft tissue that in aggregate measure 0.5 x 0.2 x 0.1 cm. The specimen is totally submitted in one cassette. B. Received in fixative is one container labeled with the patient's name and designated Distal transverse colon polyp. The specimen consists of one irregular fragment of light chakco soft tissue that measures 0.3 x 0.3 x 0.1 cm. The specimen is totally submitted in one cassette. C. Received in fixative is one container labeled with the patient's name and designated Rectal sigmoid polyp. The specimen consists of multiple irregular fragments of light chacko soft tissue that in aggregate measure 0.4 x 0.3 x 0.1 cm. The specimen is totally submitted in one cassette. D. Received in fixative is one container labeled with the patient's name and designated Rectal polyp. The specimen consists of multiple irregular fragments of light chacko soft tissue that in aggregate measure 0.8 x 0.5 x 0.1 cm. The specimen is totally submitted in one cassette. SJ. 02/13/2024 TC:5 [facility]:[id number] -------- Patient Age/Sex Location Account Attending Physician -------- MARKUS STRATTON 68/M EN [id number] Dr. Mohan Adhikari MD -------- Signed (signature on file) Dr. Fran Aguila DO 02/17/24 1031 -------- Normal [facility] Comment on above: Performed By: #### PSUIV #### [facility] [place], [address] Cesar 01-15-2024 CNPN Telephone (FAMPWS) MARKUS STRATTON ([id number]) 1955 M [facility] Date Time Provider Department 01/15/24 CHRISTO WARRENPWS During your visit today, we recorded the following information about you: Heydi Rodriguez 01/15/2024 10:32 AM Signed Carlitos is calling Christo Warren MD today requesting order for routine blood work and PSA Please advise and return his call [phone] Christo Warren MD 01/15/2024 11:29 AM Signed done Anna Page MA 01/15/2024 11:47 AM Signed Pt notified that lab orders have been faxed to [facility] Anna Page MA January 15, 2024 11:47 AM Christo Warren MD 04/12/2024 8:51 AM Signed Addended by: CHRISTO WARREN on: 04/12/2024 08:51 AM Modules accepted: Orders Allergies As of Date: 01/15/2024 (No Known Allergies) Date Reviewed: 12/01/2023 Reviewed by: Iam Humphries MA - Fully Assessed Reason for Visit: Orders [681] Primary Visit Diagnosis:Screening for malignant neoplasm of prostate [Z12.5] Other Visit Diagnoses:Elevated PSA [R97.20] Essential hypertension [I10] Order(s):COMPLETE BLOOD COUNT AND DIFFERENTIAL [SQCBCDIF] Order #: [id number] FUTURE PROSTATE SPECIFIC ANTIGEN, FREE [SQPSATF] Order #: [id number] FUTURE Prescriptions as of 04/12/2024 - pramipexole (MIRAPEX) 0.5 mg tablet Take 1 tablet by mouth daily at bedtime. - carbidopa-levodopa (SINEMET) 25-100 mg per tablet Take 2 tablets by mouth three times a day. - lisinopril (ZESTRIL) 5 mg tablet Take 1 tablet by mouth once daily. - aspirin 325 mg ORAL tablet Take 1 tablet by mouth once daily. Problem List As Of Date 01/15/2024 Noted Resolved ED (erectile dysfunction) [N52.9] 01/23/2011 Stress and adjustment reaction [F43.29] 04/07/2014 10/30/2017 Carpal tunnel syndrome, bilateral [G56.03] 08/06/2015 Dupuytren's contracture of both hands [M72.0] 08/07/2015 Essential hypertension [I10] 08/14/2015 Anxiety and depression [F41.9, F32.A] 08/14/2015 Non morbid obesity due to excess calories [E66.*08/14/2015 Pain in right wrist [M25.531] 09/13/2015 10/30/2017 Stiffness of left wrist joint [M25.632] 11/28/2015 10/30/2017 Trigger ring finger of left hand [M65.342] 08/26/2017 Neck pain [M54.2] 09/09/2017 10/30/2017 RLS (restless legs syndrome) [G25.81] 09/08/2023 Encounter Status:Closed by ANNA PAGE on 01/15/24 [facility] CNOVon 12-01-2023 CNOV Office Visit (INTMWS ) MARKUS STRATTON ([id number]) 1955 M T Date Time Provider Department 12/01/23 11:40 AM RACHEL MARTINS INTMWS During your visit today, we recorded the following information about you: Pulse Blood pressure 64/minute 138/83 Iam Humphries MA 12/01/2023 11:43 AM Signed BP Lara Serial, Digital BP Readings, Taken 2 Minutes Apart, Average Readings: 138/83 Pulse: 64 Reason for blood pressure check - Last BP elevated Patient is: Taking medication as prescribed Yes Took medication today Yes If no, date medication last taken n/a Experiencing side effects No Recommendations Continue taking medications as prescribed, Follow recommended diet instructions, Continue recommended activity, and Avoid excessive salt Follow-up No Pt has been identified by name and birthdate: Yes Allergies reviewed: Yes Latex allergy: no. Medication - prescribed and OTC reviewed and updated: Yes Do you need any prescription refills prior to your next visit: No Health Maintenance: Reviewed and up to date Allergies As of Date: 12/01/2023 (No Known Allergies) Date Reviewed: 12/01/2023 Reviewed by: Iam Humphries MA - Fully Assessed Reason for Visit: nurse visit bp check [Other] Primary Visit Diagnosis:Essential hypertension [I10] Prescriptions as of 12/01/2023 - carbidopa-levodopa (SINEMET) 25-100 mg per tablet Take 2 tablets by mouth three times a day. - benzonatate (TESSALON PERLE) 100 mg capsule Take 1 capsule by mouth three times a day as needed. - pramipexole (MIRAPEX) 0.5 mg tablet Take 1 tablet by mouth daily at bedtime. - lisinopril (ZESTRIL) 5 mg tablet Take 1 tablet by mouth once daily. - Zinc 50 mg tab Take 50 mg by mouth once daily. - Magnesium Oxide 500 mg tab Take 500 mg by mouth once daily. - glucosamine HCl/chondroitin granger (GLUCOSAMINE-CHONDROITIN) 2,000-1,200 mg/30 mL liqd Take by mouth once daily. - Cholecalciferol, Vitamin D3, 25 mcg (1,000 unit) cap Take 2,000 Units by mouth once daily. - aspirin 325 mg ORAL tablet Take 1 tablet by mouth once daily. - vitamin b complex tab Take 1 tablet by mouth once daily. - ascorbic acid, vitamin C, (VITAMIN C) 500 mg tablet Take 1 tablet by mouth once daily. Problem List As Of Date 12/01/2023 Noted Resolved ED (erectile dysfunction) [N52.9] 01/23/2011 Stress and adjustment reaction [F43.29] 04/07/2014 10/30/2017 Carpal tunnel syndrome, bilateral [G56.03] 08/06/2015 Dupuytren's contracture of both hands [M72.0] 08/07/2015 Essential hypertension [I10] 08/14/2015 Anxiety and depression [F41.9, F32.A] 08/14/2015 Non morbid obesity due to excess calories [E66.*08/14/2015 Pain in right wrist [M25.531] 09/13/2015 10/30/2017 Stiffness of left wrist joint [M25.632] 11/28/2015 10/30/2017 Trigger ring finger of left hand [M65.342] 08/26/2017 Neck pain [M54.2] 09/09/2017 10/30/2017 RLS (restless legs syndrome) [G25.81] 09/08/2023 Encounter Status:Closed by IAM HUMPHRIES on 12/01/23 [facility] Cesar 12-01-2023 [facility] Telephone (INTMWS) MARKUS STRATTON ([id number]) 1955 M T Date Time Provider Department 12/01/23 RACHEL MARTINS INTMWS During your visit today, we recorded the following information about you: Iam Humphries MA 12/01/2023 11:42 AM Signed BP Lara Serial, Digital BP Readings, Taken 2 Minutes Apart, Average Readings: 138/83 Pulse: 64 Reason for blood pressure check - Last BP elevated Patient is: Taking medication as prescribed Yes Took medication today Yes If no, date medication last taken n/a Experiencing side effects No Recommendations Continue taking medications as prescribed, Follow recommended diet instructions, Continue recommended activity, and Avoid excessive salt Follow-up No Pt has been identified by name and birthdate: Yes Allergies reviewed: Yes Latex allergy: no. Medication - prescribed and OTC reviewed and updated: Yes Do you need any prescription refills prior to your next visit: No Health Maintenance: Reviewed and up to date Rachel Martins APRN.ADRIENNE 12/01/2023 12:05 PM Signed No medication changes. Follow-up with PCP as scheduled Rachel Martins APRN.Iam Ochoa MA 12/01/2023 1:32 PM Signed Left message to call office. 12/01/2023 1:31 PM Please schedule patient's 6 month follow up with Dr. Warren which is due in March 2024. Kobi Dejesus RN 12/01/2023 4:16 PM Signed Spoke with patient. Given message from provider's office. Patient verbalizes understanding. Kobi M Lentine RN Allergies As of Date: 12/01/2023 (No Known Allergies) Date Reviewed: 12/01/2023 Reviewed by: Iam Humphries MA - Fully Assessed Reason for Visit: Blood Pressure Check [195] Prescriptions as of 12/01/2023 - carbidopa-levodopa (SINEMET) 25-100 mg per tablet Take 2 tablets by mouth three times a day. - benzonatate (TESSALON PERLE) 100 mg capsule Take 1 capsule by mouth three times a day as needed. - pramipexole (MIRAPEX) 0.5 mg tablet Take 1 tablet by mouth daily at bedtime. - lisinopril (ZESTRIL) 5 mg tablet Take 1 tablet by mouth once daily. - Zinc 50 mg tab Take 50 mg by mouth once daily. - Magnesium Oxide 500 mg tab Take 500 mg by mouth once daily. - glucosamine HCl/chondroitin granger (GLUCOSAMINE-CHONDROITIN) 2,000-1,200 mg/30 mL liqd Take by mouth once daily. - Cholecalciferol, Vitamin D3, 25 mcg (1,000 unit) cap Take 2,000 Units by mouth once daily. - aspirin 325 mg ORAL tablet Take 1 tablet by mouth once daily. - vitamin b complex tab Take 1 tablet by mouth once daily. - ascorbic acid, vitamin C, (VITAMIN C) 500 mg tablet Take 1 tablet by mouth once daily. Problem List As Of Date 12/01/2023 Noted Resolved ED (erectile dysfunction) [N52.9] 01/23/2011 Stress and adjustment reaction [F43.29] 04/07/2014 10/30/2017 Carpal tunnel syndrome, bilateral [G56.03] 08/06/2015 Dupuytren's contracture of both hands [M72.0] 08/07/2015 Essential hypertension [I10] 08/14/2015 Anxiety and depression [F41.9, F32.A] 08/14/2015 Non morbid obesity due to excess calories [E66.*08/14/2015 Pain in right wrist [M25.531] 09/13/2015 10/30/2017 Stiffness of left wrist joint [M25.632] 11/28/2015 10/30/2017 Trigger ring finger of left hand [M65.342] 08/26/2017 Neck pain [M54.2] 09/09/2017 10/30/2017 RLS (restless legs syndrome) [G25.81] 09/08/2023 Encounter Status:Closed by KOBI DEJESUS on 12/01/23 [facility] CNOVon 11-20-2023 CNOV Office Visit (INTMWS ) MARKUS STRATTON ([id number]) 1955 [facility] Date Time Provider Department 11/20/23 12:00 PM RACHEL MARTINS INTMWS During your visit today, we recorded the following information about you: Temperature Pulse Respiration Blood pressure 98.4 degrees 64/minute 16/minute 156/90 Weight 91.7 kg Rachel Martins, ELECTRONIC TESTER.LANDING SUPPORT SPECIALIST 11/20/2023 1:26 PM Signed CC: Patient presents with: runny nose, cough: Requesting another antibiotic HPI: Markus Stratton is a 68 year old male who presents to the office with above complaint He was seen in [facility] on 11/10 for three day history of cough and congestion. Patient declined chest x-ray and COVID testing. He was treated with Amoxicillin for right ear infection and Tessalon Perles. Symptoms have mostly resolved except for the cough. Cough is non-productive, worse at night when he lays down and interfering with sleep. Temperature elevation: No Chills: No Shortness of breath: No Fatigue: Yes Muscle aches: No Headache: No New loss of smell or taste: No Sore throat: No Nasal congestion: No Rhinorrhea: Yes clear drainage Nausea and/or vomiting: No Diarrhea: No Denies: ear pain, ear pressure , and decreased appetite. PMH: Non-contributory OTC meds/remedies that patient has tried: Mucinex without any relief. Tessalon Perles were also ineffective. Review of Systems See HPI PAST MEDICAL HISTORY No date: Anxiety and depression No date: Chronic insomnia No date: HTN (hypertension) No date: Obese No date: Primary hypertension No date: RLS (restless legs syndrome) PAST SURGICAL HISTORY No date: APPENDECTOMY 08/30/2015: CARPAL TUNNEL; Right 06/2017: COLONOSCOPY 07/14/2017: COLONOSCOPY SCREENING Comment: Dr. Mohan @ [facility]; Ascending colon polyp x1, biopsy- tubular adenoma; recommended repeat in 3 yrs No date: TONSILLECTOMY HX No date: VASECTOMY UNI/BI SPX W/POSTOP SEMEN EXAMS ALLERGIES Patient has no known allergies. MEDICATIONS carbidopa-levodopa (SINEMET) 25-100 mg per tablet Take 2 tablets by mouth three times a day. benzonatate (TESSALON PERLE) 100 mg capsule Take 1 capsule by mouth three times a day as needed. pramipexole (MIRAPEX) 0.5 mg tablet Take 1 tablet by mouth daily at bedtime. lisinopril (ZESTRIL) 5 mg tablet Take 1 tablet by mouth once daily. Zinc 50 mg tab Take 50 mg by mouth once daily. (Patient not taking: Reported on 11/17/2023) Magnesium Oxide 500 mg tab Take 500 mg by mouth once daily. (Patient not taking: Reported on 11/17/2023) glucosamine HCl/chondroitin granger (GLUCOSAMINE-CHONDROITIN) 2,000-1,200 mg/30 mL liqd Take by mouth once daily. (Patient not taking: Reported on 11/17/2023) Cholecalciferol, Vitamin D3, 25 mcg (1,000 unit) cap Take 2,000 Units by mouth once daily. (Patient not taking: Reported on 11/17/2023) aspirin 325 mg ORAL tablet Take 1 tablet by mouth once daily. vitamin b complex tab Take 1 tablet by mouth once daily. (Patient not taking: Reported on 11/17/2023) ascorbic acid, vitamin C, (VITAMIN C) 500 mg tablet Take 1 tablet by mouth once daily. FAMILY HISTORY Problem Relation Age of Onset No Known Problems Mother Leukemia Father No Known Problems Sister Parkinson?s Disease Brother No Known Problems Maternal Grandmother No Known Problems Maternal Grandfather No Known Problems Paternal Grandmother No Known Problems Paternal Grandfather Colon Cancer Daughter Social History Tobacco Use Smoking status: Never Smokeless tobacco: Never Vaping Use Vaping status: Never Used Substance Use Topics Alcohol use: Not Currently Comment: occasionally Drug use: Never BP 140/92 Pulse 64 Temp 36.9 ?C (98.4 ?F) (Temporal) Resp 16 Wt 91.7 kg (202 lb 2.6 oz) SpO2 93% BMI 34.70 kg/m? Physical Exam Vitals reviewed. Constitutional: General: He is not in acute distress. Appearance: Normal appearance. He is not ill-appearing or toxic-appearing. HENT: Head: Normocephalic and atraumatic. Right Ear: Tympanic membrane normal. Left Ear: Tympanic membrane normal. Nose: Right Sinus: No maxillary sinus tenderness or frontal sinus tenderness. Left Sinus: No maxillary sinus tenderness or frontal sinus tenderness. Mouth/Throat: Lips: [place]. Mouth: Mucous membranes are moist. Pharynx: Oropharynx is clear. Postnasal drip (clear) present. Cardiovascular: Rate and Rhythm: Normal rate and regular rhythm. Heart sounds: Normal heart sounds. No murmur heard. Pulmonary: Effort: Pulmonary effort is normal. Breath sounds: Normal breath sounds. No wheezing, rhonchi or rales. Skin: General: Skin is warm and dry. Neurological: Mental Status: He is alert. ASSESSMENT/PLAN: 1. Acute cough - ICD9: 786.2, ICD10: R05.1 Post infectious cough. No symptoms or exam findings for acute infection. Cough care advice given - CODEINE 10 MG-GUAIFENESIN 100 (more content not included)... Normal [facility] 11-20-2023 [facility] Telephone (KYWS) MARKUS STRATTON ([id number]) 1955 M [facility] Date Time Provider Department [facility] During your visit today, we recorded the following information about you: Kemi Damico, GEOVANNA 11/20/2023 10:25 AM Signed Patient calls to request refill on amoxicillin and benzonatate for continued cough and runny nose. Recommended scheduling follow up appointment for re-eval from EC visit. 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 Requesting Dr. Warren send in prescriptions as requested and contact him at [phone] once completed. GEOVANNA Dye William J, MD 11/20/2023 10:41 AM Signed Agree. Needs seen if still ill, in office or urgent care(who can see him after hours) Dina Moran MA 11/20/2023 10:51 AM Signed Scheduled with Rachel. Patient was not happy about having to schedule another appt. Dina Moran MA Allergies As of Date: 11/20/2023 (No Known Allergies) Date Reviewed: 11/17/2023 Reviewed by: Jeniffer Mcmahon MA - Fully Assessed Reason for Visit: Patient Question [0878] Prescriptions as of 11/20/2023 - carbidopa-levodopa (SINEMET) 25-100 mg per tablet Take 2 tablets by mouth three times a day. - benzonatate (TESSALON PERLE) 100 mg capsule Take 1 capsule by mouth three times a day as needed. - pramipexole (MIRAPEX) 0.5 mg tablet Take 1 tablet by mouth daily at bedtime. - lisinopril (ZESTRIL) 5 mg tablet Take 1 tablet by mouth once daily. - Zinc 50 mg tab Take 50 mg by mouth once daily. - Magnesium Oxide 500 mg tab Take 500 mg by mouth once daily. - glucosamine HCl/chondroitin granger (GLUCOSAMINE-CHONDROITIN) 2,000-1,200 mg/30 mL liqd Take by mouth once daily. - Cholecalciferol, Vitamin D3, 25 mcg (1,000 unit) cap Take 2,000 Units by mouth once daily. - aspirin 325 mg ORAL tablet Take 1 tablet by mouth once daily. - vitamin b complex tab Take 1 tablet by mouth once daily. - ascorbic acid, vitamin C, (VITAMIN C) 500 mg tablet Take 1 tablet by mouth once daily. Problem List As Of Date 11/20/2023 Noted Resolved ED (erectile dysfunction) [N52.9] 01/23/2011 Stress and adjustment reaction [F43.29] 04/07/2014 10/30/2017 Carpal tunnel syndrome, bilateral [G56.03] 08/06/2015 Dupuytren's contracture of both hands [M72.0] 08/07/2015 Essential hypertension [I10] 08/14/2015 Anxiety and depression [F41.9, F32.A] 08/14/2015 Non morbid obesity due to excess calories [E66.*08/14/2015 Pain in right wrist [M25.531] 09/13/2015 10/30/2017 Stiffness of left wrist joint [M25.632] 11/28/2015 10/30/2017 Trigger ring finger of left hand [M65.342] 08/26/2017 Neck pain [M54.2] 09/09/2017 10/30/2017 RLS (restless legs syndrome) [G25.81] 09/08/2023 Encounter Status:Closed by DINA MORAN on 11/20/23 [facility] CNOVon 11-17-2023 CNOV Office Visit ([facility] ) MARKUS STRATTON ([id number]) 1955 M [facility] Date Time Provider Department 11/17/23 2:00 PM NIKKI JAVIER [facility] During your visit today, we recorded the following information about you: Temperature Pulse Blood pressure Weight 97.8 degrees 67/minute 129/64 92 kg Nikki Javier MD 12/12/2023 1:58 PM Signed NEW PATIENT EVALUATION Subjective HPI Markus Stratton is a 68 year old right-handed male who presents for evaluation of possible parkinsonism. Dr. Christo Warren MD is the PCP and referring physician. Feels like when he turned 68 he just started slowing down. Feels like it takes a long time to put his clothes and shoes on. Feels stiff. Walking is slow. Harder to use his hands. Handwriting small and messy. Sometimes feels a little shaky. Trying to watch 2-3 miles 3 times a week, hasn't done it in a little while due to a cold. Was having sleep difficulty with restless leg, pramipexole titrated to 0.5 mg which has helped. Sense of smell has never been good. No constipation. Lives alone, no known dream behavior, never fallen out of bed, blankets seem to be in the same place. Brother has had PD since his 50s, paternal cousin also with PD. Medications: Current Outpatient Medications Medication Sig Dispense Refill amoxicillin (AMOXIL) 875 mg tablet Take 1 tablet by mouth two times a day for 7 days. 14 tablet 0 benzonatate (TESSALON PERLE) 100 mg capsule Take 1 capsule by mouth three times a day as needed. 21 capsule 0 pramipexole (MIRAPEX) 0.5 mg tablet Take 1 tablet by mouth daily at bedtime. 30 tablet 5 lisinopril (ZESTRIL) 5 mg tablet Take 1 tablet by mouth once daily. 30 tablet 11 aspirin 325 mg ORAL tablet Take 1 tablet by mouth once daily. 0 ascorbic acid, vitamin C, (VITAMIN C) 500 mg tablet Take 1 tablet by mouth once daily. 0 Zinc 50 mg tab Take 50 mg by mouth once daily. (Patient not taking: Reported on 11/17/2023) Magnesium Oxide 500 mg tab Take 500 mg by mouth once daily. (Patient not taking: Reported on 11/17/2023) glucosamine HCl/chondroitin granger (GLUCOSAMINE-CHONDROITIN) 2,000-1,200 mg/30 mL liqd Take by mouth once daily. (Patient not taking: Reported on 11/17/2023) Cholecalciferol, Vitamin D3, 25 mcg (1,000 unit) cap Take 2,000 Units by mouth once daily. (Patient not taking: Reported on 11/17/2023) 0 vitamin b complex tab Take 1 tablet by mouth once daily. (Patient not taking: Reported on 11/17/2023) 0 No current facility-administered medications for this visit. ROS ROS: His ROS was positive for that mentioned in the HPI. Otherwise a 10-point ROS was completed and was negative. ALLERGIES No Known Allergies Past Medical History: PAST MEDICAL HISTORY No date: Anxiety and depression No date: Chronic insomnia No date: HTN (hypertension) No date: Obese No date: Primary hypertension No date: RLS (restless legs syndrome) Family History: FAMILY HISTORY Problem Relation Age of Onset No Known Problems Mother Leukemia Father No Known Problems Sister Parkinson?s Disease Brother No Known Problems Maternal Grandmother No Known Problems Maternal Grandfather No Known Problems Paternal Grandmother No Known Problems Paternal Grandfather Colon Cancer Daughter Social History: Social History Tobacco Use Smoking status: Never Smokeless tobacco: Never Vaping Use Vaping status: Never Used Substance Use Topics Alcohol use: Not Currently Comment: occasionally Drug use: Never 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 Head: Normocephalic Neck: Supple Heart: RRR Peripheral Pulses: Normal Neurologic Examination Mental Status: He is alert. He is fully oriented. Attention is intact. Recent and remote memory is intact. Language shows normal comprehension and fluency. Praxis is normal. Affect is appropriate. Cranial Nerves: Pupils are equal and reactive to light. Extraocular movements show full and smooth pursuits. No nystagmus. Visual carpio are full to confrontation. Facial sensation is intact. Facial activation is symmetric. Hearing is intact to conversation. There is mild hypomimia. There is mild hypophonia. There is no dysarthria. Tongue is midline. Palate elevates symmetrically. Shoulder shrug is slightly delayed on left. Motor: Muscle bulk is normal. No tremor. Mod L>R bradykinesia. Minimal L>R rigidity. Sensory: Intact to fine touch, temp, and vibration. Reflex: 2+ and symmetric. Coordination: Finger to nose is smooth without ataxia. Gait/station: Slower mahi, narrow base, decreased arm swing on left DATA REVIEWED Actual films/image/tracing revie (more content not included)... Normal [facility] CNOVon 11-11-2023 CNOV Office Visit ([facility] ) CALABRETTA,MARKUS ([id number]) 1955 M [facility] Date Time Provider Department 11/11/23 5:45 PM ISRAEL ROQUE [facility] During your visit today, we recorded the following information about you: Temperature Pulse Respiration Blood pressure 98.4 degrees 67/minute 16/minute 136/84 Weight 93.8 kg Israel Roque PA 11/11/2023 5:49 PM Signed This note was created using tenXerriter. Subjective Markus Stratton is a 68 year old male. HPI 68-year-old male presents for cough, runny nose, fatigue x 4 days. Patient states on Friday he started getting a dry cough. He states he feels congested in the chest, but is not coughing anything up. He has a runny nose that is constant. He has had some fatigue. No fevers or chills. No vomiting or diarrhea. Reports stomach pain with cough, otherwise no abdominal pain. He has tried NyQuil, sinus medication, Mucinex, Rea's cough drops. States the cough drops help somewhat, but the rest of the medication has not been helping. He is unaware of any sick contacts. No chest pain or shortness of breath. No history of asthma, COPD or pneumonia. No other complaint. PAST MEDICAL HISTORY No date: Anxiety and depression No date: Chronic insomnia No date: HTN (hypertension) No date: Obese No date: Primary hypertension No date: RLS (restless legs syndrome) PAST SURGICAL HISTORY No date: APPENDECTOMY 08/30/2015: CARPAL TUNNEL; Right 06/2017: COLONOSCOPY 07/14/2017: COLONOSCOPY SCREENING Comment: Dr. Mohan @ [facility]; Ascending colon polyp x1, biopsy- tubular adenoma; recommended repeat in 3 yrs No date: TONSILLECTOMY HX No date: VASECTOMY UNI/BI SPX W/POSTOP SEMEN EXAMS ALLERGIES Patient has no known allergies. MEDICATIONS pramipexole (MIRAPEX) 0.5 mg tablet Take 1 tablet by mouth daily at bedtime. lisinopril (ZESTRIL) 5 mg tablet Take 1 tablet by mouth once daily. Zinc 50 mg tab Take 50 mg by mouth once daily. Magnesium Oxide 500 mg tab Take 500 mg by mouth once daily. glucosamine HCl/chondroitin granger (GLUCOSAMINE-CHONDROITIN) 2,000-1,200 mg/30 mL liqd Take by mouth once daily. Cholecalciferol, Vitamin D3, 25 mcg (1,000 unit) cap Take 2,000 Units by mouth once daily. aspirin 325 mg ORAL tablet Take 1 tablet by mouth once daily. vitamin b complex tab Take 1 tablet by mouth once daily. ascorbic acid, vitamin C, (VITAMIN C) 500 mg tablet Take 1 tablet by mouth once daily. amoxicillin (AMOXIL) 875 mg tablet Take 1 tablet by mouth two times a day for 7 days. benzonatate (TESSALON PERLE) 100 mg capsule Take 1 capsule by mouth three times a day as needed. FAMILY HISTORY Problem Relation Age of Onset No Known Problems Mother Leukemia Father No Known Problems Sister Parkinson?s Disease Brother No Known Problems Maternal Grandmother No Known Problems Maternal Grandfather No Known Problems Paternal Grandmother No Known Problems Paternal Grandfather Colon Cancer Daughter Social History Tobacco Use Smoking status: Never Smokeless tobacco: Never Vaping Use Vaping status: Never Used Substance Use Topics Alcohol use: Not Currently Comment: occasionally Drug use: Never Review of Systems Constitutional: Positive for fatigue. Negative for chills and fever. HENT: Positive for congestion and rhinorrhea. Negative for sore throat. Respiratory: Positive for cough. Negative for shortness of breath. Gastrointestinal: Negative for diarrhea and vomiting. Objective BP 136/84 Pulse 67 Temp 36.9 ?C (98.4 ?F) (Tympanic) Resp 16 Wt 93.8 kg (206 lb 12.7 oz) SpO2 96% BMI 35.50 kg/m? Physical Exam Vitals and nursing note reviewed. Constitutional: General: He is not in acute distress. Appearance: Normal appearance. He is not toxic-appearing. HENT: Right Ear: A middle ear effusion is present. Tympanic membrane is bulging. Left Ear: A middle ear effusion is present. Ears: Comments: Purulent middle ear effusion on the right. Clear middle ear effusion on the left. Nose: Congestion present. Mouth/Throat: Mouth: Mucous membranes are moist. Eyes: Conjunctiva/sclera: Conjunctivae normal. Cardiovascular: Rate and Rhythm: Normal rate and regular rhythm. Pulmonary: Effort: Pulmonary effort is normal. Breath sounds: Normal breath sounds. Skin: General: Skin is warm and dry. Neurological: Mental Status: He is alert. Assessment and Plan ASSESSMENT/PLAN: 1. Acute otitis media, right - ICD9: 382.9, ICD10: H66.91 (primary diagnosis) - Will begin treatment with Amoxicillin for 7 days - Supportive care with plenty of fluids, rest, and analgesia prn. 2. Acute cough - ICD9: 786.2, ICD10: R05.1 -Lungs clear on exam. Did discuss chest x-ray due to patient feeling congested in the chest and cough x 5 days. However, he declines. -Rx for Tessalon Perles. -Follow-up if symptoms persist. -Declines COVID swab (more content not included)... Normal [facility] CNOVon 10-06-2023 CNOV Office Visit (KYWS ) MARKUS STRATTON ([id number]) 1955 [facility] Date Time Provider Department 10/06/23 11:20 AM CHRISTO WARREN During your visit today, we recorded the following information about you: Pulse Blood pressure Weight Height 64/minute 134/88 91.6 kg 1.626 m Christo Warren MD 10/06/2023 11:48 AM Signed Patient presents with: Follow Up HPI: Patient presents today for office visit for 4 week follow up on blood pressure. HTN: Lisinopril increased to 5 mg daily at last OV No side effects Has BP machine at home and was encouraged at last OV to start monitoring and bring readings to visit. He has not done so today. Denies chest pain and shortness of breath. Denies headaches and dizziness. Denies palpitations and syncope. Denies edema. Seeing neurology. MEDICATIONS: Current Outpatient Medications Medication Sig pramipexole (MIRAPEX) 0.5 mg tablet Take 1 tablet by mouth daily at bedtime. lisinopril (ZESTRIL) 5 mg tablet Take 1 tablet by mouth once daily. Zinc 50 mg tab Take 50 mg by mouth once daily. Magnesium Oxide 500 mg tab Take 500 mg by mouth once daily. glucosamine HCl/chondroitin granger (GLUCOSAMINE-CHONDROITIN) 2,000-1,200 mg/30 mL liqd Take by mouth once daily. Cholecalciferol, Vitamin D3, 25 mcg (1,000 unit) cap Take 2,000 Units by mouth once daily. aspirin 325 mg ORAL tablet Take 1 tablet by mouth once daily. vitamin b complex tab Take 1 tablet by mouth once daily. ascorbic acid, vitamin C, (VITAMIN C) 500 mg tablet Take 1 tablet by mouth once daily. No current facility-administered medications for this visit. ALLERGIES: ALLERGIES No Known Allergies PAST MEDICAL HISTORY Diagnosis Date Anxiety and depression Chronic insomnia HTN (hypertension) Obese Primary hypertension RLS (restless legs syndrome) PAST SURGICAL HISTORY Procedure Laterality Date APPENDECTOMY CARPAL TUNNEL Right 08/30/2015 COLONOSCOPY 06/2017 COLONOSCOPY SCREENING 07/14/2017 Dr. Mohan @ [facility]; Ascending colon polyp x1, biopsy- tubular adenoma; recommended repeat in 3 yrs TONSILLECTOMY HX VASECTOMY UNI/BI SPX W/POSTOP SEMEN EXAMS FAMILY HISTORY Problem Relation Age of Onset No Known Problems Mother Leukemia Father No Known Problems Sister Parkinson?s Disease Brother No Known Problems Maternal Grandmother No Known Problems Maternal Grandfather No Known Problems Paternal Grandmother No Known Problems Paternal Grandfather Colon Cancer Daughter Social History Tobacco Use Smoking status: Never Smokeless tobacco: Never Vaping Use Vaping Use: Never used Substance Use Topics Alcohol use: Not Currently Comment: occasionally Drug use: Never Reviewed current medications, allergies, past medical history, surgical history, family history and social history today. REVIEW OF SYSTEMS All other reviewed and negative other than HPI. HEALTH MAINTENANCE: Reviewed health maintenance issues today and recommended the following in detail. BP Controlled (<130/80) due on 10/30/2018 Colorectal Cancer Screening due on 12/19/2022 VITALS: BP 134/88 Pulse 64 Ht 162.6 cm (5' 4) Wt 91.6 kg (202 lb) SpO2 96% BMI 34.67 kg/m? Last 4 Encounter Wt Readings: Date: Wt: 10/06/2023 91.6 kg (202 lb) 09/29/2023 90.7 kg (200 lb) 09/08/2023 89.8 kg (198 lb) 03/31/2023 91.3 kg (201 lb 3.2 oz) PHYSICAL EXAMINATION: General appearance: Well appearing, alert, in no acute distress, well-hydrated, well nourished. Skin: Skin color, texture, turgor normal, no suspicious rashes or lesions Head: Normocephalic, no masses, lesions, tenderness or abnormalities Lungs: Lungs clear to auscultation. No wheezing, rhonchi, rales Heart: RRR without murmur, gallop, or rubs. No ectopy Abdomen: Normal abdominal exam, Abdomen soft, non-tender. Bowel sounds normal. No masses, organomegaly Extremities: No deformities, edema, skin discoloration, clubbing or cyanosis. Good capillary refill. ASSESSMENT/PLAN: 1. Essential hypertension - ICD9: 401.9, ICD10: I10 - Controlled - Continue current medications Christo Warren MD Allergies As of Date: 10/06/2023 (No Known Allergies) Date Reviewed: 10/06/2023 Reviewed by: Dina Moran MA - Fully Assessed Reason for Visit: Follow Up [171] Primary Visit Diagnosis:Essential hypertension [I10] Prescriptions as of 10/06/2023 - pramipexole (MIRAPEX) 0.5 mg tablet Take 1 tablet by mouth daily at bedtime. - lisinopril (ZESTRIL) 5 mg tablet Take 1 tablet by mouth once daily. - Zinc 50 mg tab Take 50 mg by mouth once daily. - Magnesium Oxide 500 mg tab Take 500 mg by mouth once daily. - glucosamine HCl/chondroitin granger (GLUCOSAMINE-CHONDROITIN) 2,000-1,200 mg/30 mL liqd Take by mouth once daily. - Cholecalciferol, Vitamin D3, 25 mcg (1,000 unit) cap Take 2,000 Units by mouth once daily. - aspirin 325 mg (more content not included)... Normal [facility] Cesar 10-01-2023 CNPN Telephone ([employer]) MARKUS STRATTON ([id number]) 1955 [facility] Date Time Provider Department 10/01/23 BONNY BAINS During your visit today, we recorded the following information about you: Bella Hill 10/01/2023 8:45 AM Signed Last colonoscopy was done under MAC anesthesia at [facility]. The patient states I want to make sure I am OUT. He doesn't want to drive to [place]. We discussed the IV sedation here and he would like to think about where he would like to have scope done. He is going to call into the office once he decides. Carlitos is to hold his aspirin prior to endoscopy Bella Hill 10/01/2023 8:45 AM Signed Patient to call when ready. Once patient calls order will be entered for correct anesthesia type Bella Hill Generation Engineer Bella Hill 10/27/2023 8:40 AM Signed ----- Message ----- From: Bonny Bains APRN.LANDING SUPPORT SPECIALIST Sent: 09/29/2023 4:22 PM EDT To: Bella Hill; Gurinder [facility] Surg Schedule Pool Carlitos is going to call in to schedule (if he decides to move forward with colonoscopy). I didn't place order because I am unsure if he will choose MAC or IV sedation. He will need to hold his 325mg aspirin prior. Bonny Schwartz APRN.LANDING SUPPORT SPECIALIST Allergies As of Date: 10/01/2023 (No Known Allergies) Date Reviewed: 09/29/2023 Reviewed by: Bonny Bains APRN.LANDING SUPPORT SPECIALIST - Fully Assessed Reason for Visit: Appointment [186] Prescriptions as of 01/27/2024 - carbidopa-levodopa (SINEMET) 25-100 mg per tablet Take 2 tablets by mouth three times a day. - benzonatate (TESSALON PERLE) 100 mg capsule Take 1 capsule by mouth three times a day as needed. - pramipexole (MIRAPEX) 0.5 mg tablet Take 1 tablet by mouth daily at bedtime. - lisinopril (ZESTRIL) 5 mg tablet Take 1 tablet by mouth once daily. - Zinc 50 mg tab Take 50 mg by mouth once daily. - Magnesium Oxide 500 mg tab Take 500 mg by mouth once daily. - glucosamine HCl/chondroitin granger (GLUCOSAMINE-CHONDROITIN) 2,000-1,200 mg/30 mL liqd Take by mouth once daily. - Cholecalciferol, Vitamin D3, 25 mcg (1,000 unit) cap Take 2,000 Units by mouth once daily. - aspirin 325 mg ORAL tablet Take 1 tablet by mouth once daily. - vitamin b complex tab Take 1 tablet by mouth once daily. - ascorbic acid, vitamin C, (VITAMIN C) 500 mg tablet Take 1 tablet by mouth once daily. Problem List As Of Date 10/01/2023 Noted Resolved ED (erectile dysfunction) [N52.9] 01/23/2011 Stress and adjustment reaction [F43.29] 04/07/2014 10/30/2017 Carpal tunnel syndrome, bilateral [G56.03] 08/06/2015 Dupuytren's contracture of both hands [M72.0] 08/07/2015 Essential hypertension [I10] 08/14/2015 Anxiety and depression [F41.9, F32.A] 08/14/2015 Non morbid obesity due to excess calories [E66.*08/14/2015 Pain in right wrist [M25.531] 09/13/2015 10/30/2017 Stiffness of left wrist joint [M25.632] 11/28/2015 10/30/2017 Trigger ring finger of left hand [M65.342] 08/26/2017 Neck pain [M54.2] 09/09/2017 10/30/2017 RLS (restless legs syndrome) [G25.81] 09/08/2023 Encounter Status:Closed by SEVEN ALEGRIA on 01/27/24 [facility] CNOVjudy 09-29-2023 CNOV Office Visit (GENSWS ) MARKUS STRATTON ([id number]) 1955 M [facility] Date Time Provider Department 09/29/23 4:00 PM BONNY BAINS GENSWS During your visit today, we recorded the following information about you: Temperature Pulse Blood pressure Weight 97.6 degrees 74/minute 138/72 90.7 kg Height 1.626 m Bonny Bains APRN.CNP 09/29/2023 4:22 PM Signed HISTORY AND PHYSICAL Markus Stratton : 1955 REFERRING PHYSICIAN: Christo Warren [address] [facility] [place] [place] [id number] CHIEF COMPLAINT: Patient presents with: Consult: Colonoscopy consultation HPI: Markus is a 68 year old male referred for endoscopy. Markus notes history of colonic polyps. Patient denies any change in bowel habits, weight changes, blood in stools, black tarry stools or abdominal pain. Refers family history of colon issues.-States his daughter was diagnosed with colon cancer at 21 years old. Markus notes no upper GI complaints. Markus has undergone prior endoscopy. Last colonoscopy was with Dr. Mhoan at [facility] in June 2017 Impression: 1. Cecum: Normal appearance no mass lesions normal ileocecal valve. 2. Ascending colon: Normal appearance no mass or lesions. There were 2 small polyps identified both of them removed with snare cautery technique. One of them I nearly completely ablated with my cauterization. There will be much of any pathology report for it. The other one I was able to bring back to the channel of the scope and we should be able to send that off to pathology. 3. Transverse colon: Normal appearance no mass lesions 4. Descending colon: Normal appearance no mass lesions. 5. Sigmoid colon: Normal appearance no mass lesions. 6. Rectum: Normal appearance no mass lesions retroflexion did show some internal hemorrhoidal disease. Pathology: Ascending colon polyp, biopsy: Tubular adenoma Recommendation: Repeat colonoscopy in 3 years Current Outpatient Medications Medication Sig pramipexole (MIRAPEX) 0.5 mg tablet Take 1 tablet by mouth daily at bedtime. lisinopril (ZESTRIL) 5 mg tablet Take 1 tablet by mouth once daily. Zinc 50 mg tab Take 50 mg by mouth once daily. Magnesium Oxide 500 mg tab Take 500 mg by mouth once daily. glucosamine HCl/chondroitin granger (GLUCOSAMINE-CHONDROITIN) 2,000-1,200 mg/30 mL liqd Take by mouth once daily. Cholecalciferol, Vitamin D3, 25 mcg (1,000 unit) cap Take 2,000 Units by mouth once daily. aspirin 325 mg ORAL tablet Take 1 tablet by mouth once daily. vitamin b complex tab Take 1 tablet by mouth once daily. ascorbic acid, vitamin C, (VITAMIN C) 500 mg tablet Take 1 tablet by mouth once daily. No current facility-administered medications for this visit. ALLERGIES: Patient has no known allergies. PAST MEDICAL HISTORY Diagnosis Date Anxiety and depression Chronic insomnia HTN (hypertension) Obese Primary hypertension RLS (restless legs syndrome) PAST SURGICAL HISTORY Procedure Laterality Date APPENDECTOMY CARPAL TUNNEL Right 08/30/2015 COLONOSCOPY 06/2017 COLONOSCOPY SCREENING 07/14/2017 Dr. Mohan @ [facility]; Ascending colon polyp x1, biopsy- tubular adenoma; recommended repeat in 3 yrs TONSILLECTOMY HX VASECTOMY UNI/BI SPX W/POSTOP SEMEN EXAMS FAMILY HISTORY Problem Relation Age of Onset No Known Problems Mother Leukemia Father No Known Problems Sister Parkinson?s Disease Brother No Known Problems Maternal Grandmother No Known Problems Maternal Grandfather No Known Problems Paternal Grandmother No Known Problems Paternal Grandfather Colon Cancer Daughter Social History Tobacco Use Smoking status: Never Smokeless tobacco: Never Vaping Use Vaping Use: Never used Substance Use Topics Alcohol use: Not Currently Comment: occasionally Drug use: Never REVIEW OF SYMPTOMS: The review of systems data was entered by the nurse and reviewed by co Nursing Notes: Allyson Pollard RN 09/29/2023 3:56 PM Signed REVIEW OF SYSTEMS: General: The patient denies fatigue, denies weight loss, denies weight gain, denies feeling hot, and denies feelings of cold. Eyes: The patient denies glaucoma, denies eye injury/surgery, wears glasses or contacts. Ear/Nose/Throat: The patient denies allergies, denies hayfever, denies ear infections, and denies bloody noses. Cardiovascular: The patient denies chest pain, denies heart disease, NOTES high blood pressure,denies cardiac stent, denies prior heart attack, denies irregular heart beat, denies high cholesterol, denies poor circulation, denies heart failure, other cardiac issues, denies claudication, denies cold feet, denies peripheral arterial stent. Respiratory: The patient denies tuberculosis, denies pneumonia, denies frequent cough, denies pulmonary embolism, denies shortness of breath, and denies coughing up blood. Gastrointestinal: The patient shelley (more content not included)... Normal [facility] CNOVon 09-08-2023 CNOV Office Visit (FAMPWS ) MARKUS STRATTON ([id number]) 1955 [facility] Date Time Provider Department 09/08/23 10:00 AM [facility]RISTO WARREN [facility] During your visit today, we recorded the following information about you: Pulse Blood pressure Weight Height 65/minute 146/82 89.8 kg 1.626 m Christo Warren MD 09/08/2023 10:41 AM Signed Patient presents with: 6 Month Exam HPI: Patient presents today for office visit for follow up. RLS: Currently taking Pramipexole 0.25 qhs States he thinks the dose is too low Takes around 9pm at night Goes to bed around 11pm Legs still shaking at night. States it's not all the time. Not sleeping well at all No snoring. HTN: Continues on Lisinopril 2.5 mg Does not monitor his BP Denies chest pain and shortness of breath Denies headaches and dizziness Denies palpitations and syncope Denies edema He saw urology in [place]. They had ordered a free psa and testicular us and he never did either. No urinary issues. He is slowing down more. Feeling his age His brother has parkinson's No tremor. No cog wheeling. Memory is ok. No falls. No focal numbness or weakness. No headaches. Feels his movements are slower. Has noted having to move the bowels frequently. No diarrhea. No bloody or black stools. Feels it is when he is nervous. Does not feel he worries as much. No depression. MEDICATIONS: Current Outpatient Medications Medication Sig pramipexole (MIRAPEX) 0.25 mg tablet Take 1 tablet by mouth daily at bedtime. lisinopril 2.5 mg tablet Take 1 tablet by mouth once daily. Zinc 50 mg tab Take 50 mg by mouth once daily. Magnesium Oxide 500 mg tab Take 500 mg by mouth once daily. glucosamine HCl/chondroitin granger (GLUCOSAMINE-CHONDROITIN) 2,000-1,200 mg/30 mL liqd Take by mouth once daily. Cholecalciferol, Vitamin D3, 25 mcg (1,000 unit) cap Take 2,000 Units by mouth once daily. aspirin 325 mg ORAL tablet Take 1 tablet by mouth once daily. vitamin b complex tab Take 1 tablet by mouth once daily. ascorbic acid, vitamin C, (VITAMIN C) 500 mg tablet Take 1 tablet by mouth once daily. No current facility-administered medications for this visit. ALLERGIES: ALLERGIES No Known Allergies PAST MEDICAL HISTORY Diagnosis Date Anxiety and depression Chronic insomnia HTN (hypertension) Obese Primary hypertension RLS (restless legs syndrome) PAST SURGICAL HISTORY Procedure Laterality Date APPENDECTOMY CARPAL TUNNEL Right 08/30/2015 COLONOSCOPY 06/2017 COLONOSCOPY SCREENING 07/14/2017 Dr. Mohan @ [facility]; Ascending colon polyp x1, biopsy- tubular adenoma; recommended repeat in 3 yrs TONSILLECTOMY HX VASECTOMY UNI/BI SPX W/POSTOP SEMEN EXAMS FAMILY HISTORY Problem Relation Age of Onset No Known Problems Mother Leukemia Father No Known Problems Sister Parkinson?s Disease Brother No Known Problems Maternal Grandmother No Known Problems Maternal Grandfather No Known Problems Paternal Grandmother No Known Problems Paternal Grandfather Colon Cancer Daughter Social History Tobacco Use Smoking status: Never Smokeless tobacco: Never Vaping Use Vaping Use: Never used Substance Use Topics Alcohol use: Not Currently Comment: occasionally Drug use: Never Reviewed current medications, allergies, past medical history, surgical history, family history and social history today. REVIEW OF SYSTEMS All other reviewed and negative other than HPI. HEALTH MAINTENANCE: Reviewed health maintenance issues today and recommended the following in detail. BP Controlled (<130/80) due on 10/30/2018 Colorectal Cancer Screening due on 12/19/2022 Advance Directive Discussion-daughter, Anny Clemens is is his surrogate. VITALS: BP 146/82 Pulse 65 Ht 162.6 cm (5' 4) Wt 89.8 kg (198 lb) SpO2 98% BMI 33.99 kg/m? Last 4 Encounter Wt Readings: Date: Wt: 09/08/2023 89.8 kg (198 lb) 03/31/2023 91.3 kg (201 lb 3.2 oz) 02/24/2023 88.9 kg (196 lb) 08/17/2022 93.8 kg (206 lb 12.8 oz) PHYSICAL EXAMINATION: General appearance: Well appearing, alert, in no acute distress, well-hydrated, well nourished. Skin: Skin color, texture, turgor normal, no suspicious rashes or lesions Head: Normocephalic, no masses, lesions, tenderness or abnormalities Neck: Supple, no adenopathy; thyroid symmetric, normal size, no bruits Lungs: Lungs clear to auscultation. No wheezing, rhonchi, rales Heart: RRR without murmur, gallop, or rubs. No ectopy Abdomen: Normal abdominal exam, Abdomen soft, non-tender. Bowel sounds normal. No masses, organomegaly Extremities: No deformities, edema, skin discoloration, clubbing or cyanosis. Good capillary refill. Musculoskeletal: No joint swelling, deformity, or tenderness Peripheral pulses: Normal Neuro: gait is shuffling with slight hunched over his posture, not swinging arms. No definite cog (more content not included)... Normal [facility] MARKUS STRATTON ([id number]) 1955 M [facility] Date Time Provider Department 09/08/23 CHRISTO WARREN [facility] During your visit today, we recorded the following information about you: Gaby Pedersen 09/08/2023 1:36 PM Signed Patient called in and saw Dr. Warren and stated that Dr Warren was suppose to put in an order for a consult to see Dr Mohan. I did not see one in patients chart. Please advice as to what we should do. Thank you Christo Zuleta MD 09/08/2023 1:41 PM Signed ??There is a consult for surgery in the chart and looks like he has an appt already sed up on 09/28 Anna Page MA 09/08/2023 2:15 PM Signed Pt asking for the 5 mg tab to be sent in to the pharmacy. Pt was asking to go without the consult and do just the colonoscopy. I told him based on history of polyps he had to have the consult first. Anna Page MA September 08, 2023 2:15 PM Allergies As of Date: 09/08/2023 (No Known Allergies) Date Reviewed: 09/08/2023 Reviewed by: Dina Moran MA - Fully Assessed Reason for Visit: Patient Question [8024] Visit Diagnosis:Essential hypertension [I10] Order(s):lisinopril (ZESTRIL) 5 mg tabletTake 1 tablet by mouth once daily.Disp: 30 tabletRfl: 11 Prescriptions as of 09/08/2023 - pramipexole (MIRAPEX) 0.5 mg tablet Take 1 tablet by mouth daily at bedtime. - lisinopril (ZESTRIL) 5 mg tablet Take 1 tablet by mouth once daily. - Zinc 50 mg tab Take 50 mg by mouth once daily. - Magnesium Oxide 500 mg tab Take 500 mg by mouth once daily. - glucosamine HCl/chondroitin granger (GLUCOSAMINE-CHONDROITIN) 2,000-1,200 mg/30 mL liqd Take by mouth once daily. - Cholecalciferol, Vitamin D3, 25 mcg (1,000 unit) cap Take 2,000 Units by mouth once daily. - aspirin 325 mg ORAL tablet Take 1 tablet by mouth once daily. - vitamin b complex tab Take 1 tablet by mouth once daily. - ascorbic acid, vitamin C, (VITAMIN C) 500 mg tablet Take 1 tablet by mouth once daily. Problem List As Of Date 09/08/2023 Noted Resolved ED (erectile dysfunction) [N52.9] 01/23/2011 Stress and adjustment reaction [F43.29] 04/07/2014 10/30/2017 Carpal tunnel syndrome, bilateral [G56.03] 08/06/2015 Dupuytren's contracture of both hands [M72.0] 08/07/2015 Essential hypertension [I10] 08/14/2015 Anxiety and depression [F41.9, F32.A] 08/14/2015 Non morbid obesity due to excess calories [E66.*08/14/2015 Pain in right wrist [M25.531] 09/13/2015 10/30/2017 Stiffness of left wrist joint [M25.632] 11/28/2015 10/30/2017 Trigger ring finger of left hand [M65.342] 08/26/2017 Neck pain [M54.2] 09/09/2017 10/30/2017 RLS (restless legs syndrome) [G25.81] 09/08/2023 Prescriptions ordered this encounter Disp Refills Start End LISINOPRIL 5 MG TABLET 30 t* 11 09/08/2023 09/07/2024 Route: ORAL Sig: Take 1 tablet by mouth once daily. Medications Discontinued During This Encounter Prescriptions - lisinopril (ZESTRIL) 5 mg tablet (Discontinued) Take 1 tablet by mouth once daily. Encounter Status:Closed by CHRISTO WARREN on 09/08/23 Normal [facility] XR Lumbar spine 3 Viewson IMPRESSION: DEGENERATIVE CHANGES AND ALIGNMENT ABNORMALITIES DESCRIBED Youth Teacher: [place] Transcribe Date/Time: May 02 2020 6:18A Dictated by : SAMMI MANRIQUEZ MD This examination was interpreted and the report reviewed and electronically signed by: SAMMI MANRIQUEZ MD on May 02 2020 6:19AM [facility] DIVISION OF RADIOLOGY * * *Final Report* * * DATE OF EXAM: May 01 2020 7:07PM [id number] - XR LUMBAR 3V AP/LAT/L5-S1 / PROCEDURE REASON: Pain of left calf * * * * Physician Interpretation * * * * Examination: XR LUMBAR 3V AP/LAT/L5-S1 History: Pain of left calf Technique: XR LUMBAR 3V AP/LAT/L5-S1 Comparison: None RESULT: 5 lumbar type vertebrae are noted. For numbering purposes, L4-5 is at the level of the iliac crest. Degenerative change involving the posterior elements from L4 through S1. Mild/moderate spondylosis and osteophytosis at L2-3 with moderate disc space narrowing. Mild spondylosis and osteophytosis elsewhere. No fracture or focal bony abnormality. Mild disc space narrowing at L4-5 and L5-S1. Mild posterior position of L3 with respect to L4. SI joints appear normal DIVISION OF RADIOLOGY Provider, Haily Joao Clint - 05/02/2020 * * *Final Report* * * DATE OF EXAM: May 01 2020 7:07PM [id number] - XR LUMBAR 3V AP/LAT/L5-S1 / PROCEDURE REASON: Pain of left calf * * * * Physician Interpretation * * * * Examination: XR LUMBAR 3V AP/LAT/L5-S1 History: Pain of left calf Technique: XR LUMBAR 3V AP/LAT/L5-S1 Comparison: None RESULT: 5 lumbar type vertebrae are noted. For numbering purposes, L4-5 is at the level of the iliac crest. Degenerative change involving the posterior elements from L4 through S1. Mild/moderate spondylosis and osteophytosis at L2-3 with moderate disc space narrowing. Mild spondylosis and osteophytosis elsewhere. No fracture or focal bony abnormality. Mild disc space narrowing at L4-5 and L5-S1. Mild posterior position of L3 with respect to L4. SI joints appear normal IMPRESSION IMPRESSION: DEGENERATIVE CHANGES AND ALIGNMENT ABNORMALITIES DESCRIBED Youth Teacher: [facility] Transcribe Date/Time: May 02 2020 6:18A Dictated by : SAMMI MANRIQUEZ MD This examination was interpreted and the report reviewed and electronically signed by: SAMMI MANRIQUEZ MD on May 02 2020 6:19AM EST [facility] XR Lumbar spine 3 ViewsOrder ed By: [facility] Provider on 05-02-2020 [facility] XR Lumbar spine 3 Viewson Radiology Study observation (narrative) [facility] Vital Signs Date Time Vital Sign Value Performing Clinician Facility 08-05-2024 11:35-0400 Body mass index (BMI) [Ratio] 34.4 kg/m2 Nikki Javier MD Work Phone: [facility] 08-05-2024 11:35-0400 Body temperature 98.01 [degF] Nikki Javier MD Work Phone: [facility] 08-05-2024 11:35-0400 Body weight 90.9 kg Nikki Javier MD Work Phone: [facility] 08-05-2024 11:35-0400 Diastolic blood pressure 87 mm[Hg] Nikki Javier MD Work Phone: [facility] 08-05-2024 11:35-0400 Heart rate 61 /min Nikki Javier MD Work Phone: [facility] 08-05-2024 11:35-0400 SaO2% (BldA) [Mass fraction] 96 % Nikki Javier MD Work Phone: [facility] 08-05-2024 11:35-0400 Systolic blood pressure 144 mm[Hg] Nikik Javier MD Work Phone: [facility] 05-01-2024 14:48-0500 Body temperature 97.9 [degF] Meron David-Eibara ELECTRONIC TESTER.LANDING SUPPORT SPECIALIST Work Phone: [facility] 05-01-2024 14:48-0500 Diastolic blood pressure 92 mm[Hg] Meron David-Eibara ELECTRONIC TESTER.LANDING SUPPORT SPECIALIST Work Phone: [facility] 05-01-2024 14:48-0500 Heart rate 69 /min Meron David-Eibara ELECTRONIC TESTER.LANDING SUPPORT SPECIALIST Work Phone: [facility] 05-01-2024 14:48-0500 Respiratory rate 20 /min Meron David-Eibara ELECTRONIC TESTER.LANDING SUPPORT SPECIALIST Work Phone: [facility] 05-01-2024 14:48-0500 SaO2% (BldA) [Mass fraction] 97 % Meron David-Eibara ELECTRONIC TESTER.LANDING SUPPORT SPECIALIST Work Phone: [facility] 05-01-2024 14:48-0500 Systolic blood pressure 142 mm[Hg] Meron David-Eibara ELECTRONIC TESTER.LANDING SUPPORT SPECIALIST Work Phone: [facility] 04-19-2024 10:57-0500 Body mass index (BMI) [Ratio] 35.59 kg/m2 Nikki Javier MD Work Phone: [facility] 04-19-2024 10:57-0500 Body temperature 97 [degF] Nikki Javier MD Work Phone: [facility] 04-19-2024 10:57-0500 Body weight 94.05 kg Nikki Javier MD Work Phone: [facility] 04-19-2024 10:57-0500 Diastolic blood pressure 98 mm[Hg] Nikki Javier MD Work Phone: [facility] 04-19-2024 10:57-0500 Heart rate 62 /min Nikki Javier MD Work Phone: [facility] 04-19-2024 10:57-0500 SaO2% (BldA) [Mass fraction] 97 % Nikki Javier MD Work Phone: [facility] 04-19-2024 10:57-0500 Systolic blood pressure 155 mm[Hg] Nikki Javier MD Work Phone: [facility] 04-12-2024 08:25-0500 Body height 162.6 cm Christo Warren MD Work Phone: [facility] 04-12-2024 08:25-0500 Body mass index (BMI) [Ratio] 35.36 kg/m2 Christo Warren MD Work Phone: [facility] 04-12-2024 08:25-0500 Body weight 93.44 kg Christo Warren MD Work Phone: [facility] 04-12-2024 08:25-0500 Diastolic blood pressure 86 mm[Hg] Christo Warren MD Work Phone: [facility] 04-12-2024 08:25-0500 Heart rate 67 /min Christo Warren MD Work Phone: [facility] 04-12-2024 08:25-0500 Systolic blood pressure 158 mm[Hg] Christo Warren MD Work Phone: [facility] 12-01-2023 11:40-0400 Diastolic blood pressure 83 mm[Hg] Rachel Martins APRN.LANDING SUPPORT SPECIALIST Work Phone: [facility] Comment on above: bp lara average 12-01-2023 11:40-0400 Heart rate 64 /min Rachel Martins ELECTRONIC TESTER.LANDING SUPPORT SPECIALIST Work Phone: [facility] 12-01-2023 11:40-0400 Systolic blood pressure 138 mm[Hg] Rachel Lakshmi ELECTRONIC TESTER.LANDING SUPPORT SPECIALIST Work Phone: [facility] Comment on above: bp lara average 11-20-2023 12:21-0400 Diastolic blood pressure 90 mm[Hg] Rachel Lakshmi ELECTRONIC TESTER.LANDING SUPPORT SPECIALIST Work Phone: [facility] 11-20-2023 12:21-0400 SaO2% (BldA) [Mass fraction] 96 % Rachel Lakshmi ELECTRONIC TESTER.LANDING SUPPORT SPECIALIST Work Phone: [facility] 11-20-2023 12:21-0400 Systolic blood pressure 156 mm[Hg] Rachel WebbLakshmi ELECTRONIC TESTER.LANDING SUPPORT SPECIALIST Work Phone: [facility] 11-20-2023 12:00-0400 Body mass index (BMI) [Ratio] 34.7 kg/m2 Rachel Lakshmi ELECTRONIC TESTER.LANDING SUPPORT SPECIALIST Work Phone: [facility] 11-20-2023 12:00-0400 Body temperature 98.4 [degF] Rachel VitalLakshmi ELECTRONIC TESTER.LANDING SUPPORT SPECIALIST Work Phone: [facility] 11-20-2023 12:00-0400 Body weight 91.7 kg Rachel WebbLakshmi ELECTRONIC TESTER.LANDING SUPPORT SPECIALIST Work Phone: [facility] 11-20-2023 12:00-0400 Heart rate 64 /min Rachel WebbLakshmi ELECTRONIC TESTER.LANDING SUPPORT SPECIALIST Work Phone: [facility] 11-20-2023 12:00-0400 Respiratory rate 16 /min Rachel WebbLakshmi ELECTRONIC TESTER.LANDING SUPPORT SPECIALIST Work Phone: [facility] 11-17-2023 13:50-0400 Body mass index (BMI) [Ratio] 34.83 kg/m2 Nikki Javier MD Work Phone: [facility] 11-17-2023 13:50-0400 Body temperature 97.81 [degF] Nikki Javier MD Work Phone: [facility] 11-17-2023 13:50-0400 Body weight 92.05 kg Nikki Javier MD Work Phone: [facility] 11-17-2023 13:50-0400 Diastolic blood pressure 64 mm[Hg] Nikki Javier MD Work Phone: [facility] 11-17-2023 13:50-0400 Heart rate 67 /min Nikki Javier MD Work Phone: [facility] 11-17-2023 13:50-0400 SaO2% (BldA) [Mass fraction] 95 % Nikki Javier MD Work Phone: [facility] 11-17-2023 13:50-0400 Systolic blood pressure 129 mm[Hg] Nikki Javier MD Work Phone: [facility] 11-11-2023 17:39-0400 Body mass index (BMI) [Ratio] 35.5 kg/m2 Krislyn Aberegg PA Work Phone: [facility] 11-11-2023 17:39-0400 Body temperature 98.4 [degF] Krislyn Aberegg PA Work Phone: [facility] 11-11-2023 17:39-0400 Body weight 93.8 kg Krislyn Aberegg PA Work Phone: [facility] 11-11-2023 17:39-0400 Diastolic blood pressure 84 mm[Hg] Krislyn Aberegg PA Work Phone: [facility] 11-11-2023 17:39-0400 Heart rate 67 /min Krislyn Aberegg PA Work Phone: [facility] 11-11-2023 17:39-0400 Respiratory rate 16 /min Krislyn Aberegg PA Work Phone: [facility] 11-11-2023 17:39-0400 SaO2% (BldA) [Mass fraction] 96 % Krislyn Aberegg PA Work Phone: [facility] 11-11-2023 17:39-0400 Systolic blood pressure 136 mm[Hg] Krislyn Aberegg PA Work Phone: [facility] 10-06-2023 11:07-0400 Body height 162.6 cm Christo Warren MD Work Phone: [facility] 10-06-2023 11:07-0400 Body mass index (BMI) [Ratio] 34.67 kg/m2 Christo Warren MD Work Phone: [facility] 10-06-2023 11:07-0400 Body weight 91.63 kg Christo Warren MD Work Phone: [facility] 10-06-2023 11:07-0400 Diastolic blood pressure 88 mm[Hg] Christo Warren MD Work Phone: [facility] 10-06-2023 11:07-0400 Heart rate 64 /min Christo Warren MD Work Phone: [facility] 10-06-2023 11:07-0400 SaO2% (BldA) [Mass fraction] 96 % Christo Warren MD Work Phone: [facility] 10-06-2023 11:07-0400 Systolic blood pressure 134 mm[Hg] Christo Warren MD Work Phone: [facility] 09-29-2023 15:49-0400 Body height 162.6 cm Bonny Omer ELECTRONIC TESTER.LANDING SUPPORT SPECIALIST Work Phone: [facility] 09-29-2023 15:49-0400 Body mass index (BMI) [Ratio] 34.33 kg/m2 Bonny Omer ELECTRONIC TESTER.LANDING SUPPORT SPECIALIST Work Phone: [facility] 09-29-2023 15:49-0400 Body temperature 97.59 [degF] Bonny Omer ELECTRONIC TESTER.LANDING SUPPORT SPECIALIST Work Phone: [facility] 09-29-2023 15:49-0400 Body weight 90.72 kg Bonny Omer ELECTRONIC TESTER.LANDING SUPPORT SPECIALIST Work Phone: [facility] 09-29-2023 15:49-0400 Diastolic blood pressure 72 mm[Hg] Bonny Omer ELECTRONIC TESTER.LANDING SUPPORT SPECIALIST Work Phone: [facility] 09-29-2023 15:49-0400 Heart rate 74 /min Bonny Omer ELECTRONIC TESTER.LANDING SUPPORT SPECIALIST Work Phone: [facility] 09-29-2023 15:49-0400 SaO2% (BldA) [Mass fraction] 100 % Bonny Omer ELECTRONIC TESTER.LANDING SUPPORT SPECIALIST Work Phone: [facility] 09-29-2023 15:49-0400 Systolic blood pressure 138 mm[Hg] Bonny Omer ELECTRONIC TESTER.LANDING SUPPORT SPECIALIST Work Phone: [facility] 09-08-2023 09:57-0400 Body height 162.6 cm Christo Warren MD Work Phone: [facility] 09-08-2023 09:57-0400 Body mass index (BMI) [Ratio] 33.99 kg/m2 Christo Warren MD Work Phone: [facility] 09-08-2023 09:57-0400 Body weight 89.81 kg Christo Warren MD Work Phone: [facility] 09-08-2023 09:57-0400 Diastolic blood pressure 82 mm[Hg] Christo Warren MD Work Phone: [facility] 09-08-2023 09:57-0400 Heart rate 65 /min Christo Warren MD Work Phone: [facility] 09-08-2023 09:57-0400 SaO2% (BldA) [Mass fraction] 98 % Christo Warren MD Work Phone: [facility] 09-08-2023 09:57-0400 Systolic blood pressure 146 mm[Hg] Christo Warren MD Work Phone: [facility] 02-24-2023 17:32-0500 Diastolic blood pressure 88 mm[Hg] Christo Warren MD Work Phone: [facility] 02-24-2023 17:32-0500 Systolic blood pressure 138 mm[Hg] Christo Warren MD Work Phone: [facility] 02-24-2023 16:57-0500 Body height 162.6 cm Christo Warren MD Work Phone: [facility] 02-24-2023 16:57-0500 Body weight 88.91 kg Christo Warren MD Work Phone: [facility] 02-24-2023 16:57-0500 Heart rate 79 /min Christo Warren MD Work Phone: [facility] 02-24-2023 16:57-0500 SaO2% (BldA) [Mass fraction] 96 % Christo Warren MD Work Phone: [facility] 03-31-2022 14:47-0500 Body temperature 98.01 [degF] Juan Carlos Andrae ELECTRONIC TESTER.LANDING SUPPORT SPECIALIST Work Phone: [facility] 03-31-2022 14:47-0500 Body weight 96.16 kg Juan Carlos Andrae ELECTRONIC TESTER.LANDING SUPPORT SPECIALIST Work Phone: [facility] 03-31-2022 14:47-0500 Diastolic blood pressure 82 mm[Hg] Juan Carlos Andrae ELECTRONIC TESTER.LANDING SUPPORT SPECIALIST Work Phone: [facility] 03-31-2022 14:47-0500 Heart rate 69 /min Juan Carlos Andrae ELECTRONIC TESTER.LANDING SUPPORT SPECIALIST Work Phone: [facility] 03-31-2022 14:47-0500 Respiratory rate 16 /min Juan Carlos Andrae ELECTRONIC TESTER.LANDING SUPPORT SPECIALIST Work Phone: [facility] 03-31-2022 14:47-0500 SaO2% (BldA) [Mass fraction] 98 % Juan Carlos Andrae ELECTRONIC TESTER.LANDING SUPPORT SPECIALIST Work Phone: [facility] 03-31-2022 14:47-0500 Systolic blood pressure 120 mm[Hg] Juan Carlos Andrae ELECTRONIC TESTER.LANDING SUPPORT SPECIALIST Work Phone: [facility] Encounters Encounter Date Encounter Type Care Provider Facility Start: 09-08-2024 End: 09-08-2024 [facility] Start: 09-08-2024 End: 09-08-2024 Patient encounter procedure Gabriella Diaz MA [facility] [place] Comment on above: Population Health Na vigation Outreach ([employer] [facility] [place] [facility] Start: 09-06-2024 End: 09-07-2024 ambulatory Mis Montgomery PT Work Phone: [facility] Comment on above: Posture abnormality (Primary Dx); Parkinson's disease without dyskinesia or fluctuating manifestations (HCC) Start: 08-18-2024 End: 08-18-2024 Telephone encounter Nikki Javier MD Work Phone: Neurology Comment on above: Patient Update Start: 08-05-2024 End: 08-05-2024 Patient encounter procedure Nikki Javier MD Work Phone: Neurology Comment on above: Parkinson's disease without dyskinesia or fluctuating manifestations (HCC) (Primary Dx); RLS (restless legs syndrome) Start: 08-05-2024 End: 08-05-2024 ambulatory NIKKI JAVIER Facility:[facility] Start: 06-11-2024 End: 06-11-2024 ambulatory Elba Barron RN Work Phone: Speech Writer Management Comment on above: Initial enrollment o kendra for Chronic Disease Management Start: 05-10-2024 End: 05-10-2024 Telephone encounter Christo Warren MD Work Phone: [facility] Comment on above: Patient Request Start: 05-06-2024 End: 05-06-2024 ambulatory Alexandra Brantley MA [facility] [place] Start: 05-06-2024 End: 05-06-2024 Patient encounter procedure Alexandra Brantley MA [facility] Comment on above: Population Health Na vigation Outreach ([employer] High Risk Attempt #1 ) Start: 05-01-2024 End: 05-01-2024 ambulatory SELF Facility:[id number] Start: 05-01-2024 End: 05-01-2024 Patient encounter procedure Meron Cooper APRN.CNP Work Phone: [facility] Comment on above: Bronchitis (Primary Dx) Start: 04-19-2024 End: 04-19-2024 ambulatory NIKKI JAVIER Facility:[facility] Start: 04-19-2024 End: 04-19-2024 Patient encounter procedure Nikki Javier MD Work Phone: Neurology Comment on above: Parkinson's disease without dyskinesia or fluctuating manifestations (HCC) (Primary Dx); RLS (restless legs syndrome) Start: 04-12-2024 End: 04-12-2024 ambulatory CHRISTO WARREN Facility:[facility] Start: 04-12-2024 End: 04-12-2024 Patient encounter procedure Christo Warren MD Work Phone: [facility] Comment on above: Essential hypertensi on (Primary Dx); Anxiety and depression; Parkinson's disease, unspecified whether dyskinesia present, unspecified whether manifestations fluctuate (HCC); History of colonic polyps Start: 03-29-2024 End: 03-29-2024 ambulatory CHRISTO WARREN Facility:[facility] Start: 03-10-2024 End: 03-10-2024 Refill Christo Warren MD Work Phone: [facility] Comment on above: Refill Request Start: 02-13-2024 ambulatory [facility] Facility:[facility] [place] Start: 02-13-2024 End: 02-13-2024 ambulatory [facility] Facility:[facility] Start: 01-15-2024 End: 01-15-2024 Telephone encounter Christo Warren MD Work Phone: [facility] Comment on above: Orders Start: 01-15-2024 ambulatory [facility] Facility:[facility] Start: 01-05-2024 ambulatory Count Includes [facility]:[place] Start: 12-31-2023 End: 02-09-2024 Admission to same day surgery center [facility] Provider General Surgery Comment on above: COLON INFO Start: 12-31-2023 End: 02-09-2024 E-mail encounter from caregiver [facility] Provider General Surgery Start: 12-01-2023 End: 12-01-2023 Telephone encounter Rachel Martins APRN.CNP Work Phone: Internal [facility] [place] Comment on above: Blood Pressure Check Start: 12-01-2023 End: 12-01-2023 ambulatory RACHEL MARTINS Facility:[facility] Start: 12-01-2023 End: 12-01-2023 Patient encounter procedure Rachel Janell Lakshmi COLE.LANDING SUPPORT SPECIALIST Work Phone: [facility] [place] Comment on above: Essential hypertensi on (Primary Dx) Start: 11-20-2023 End: 11-20-2023 Telephone encounter Christo Warren MD Work Phone: [facility] [place] Comment on above: Patient Question Start: 11-20-2023 End: 11-20-2023 ambulatory RACHEL RANKINR Facility:[facility] Start: 11-20-2023 End: 11-20-2023 Patient encounter procedure Rachel Maciel Lakshmi ELECTRONIC TESTER.LANDING SUPPORT SPECIALIST Work Phone: [facility] [place] Comment on above: Acute cough (Primary Dx); Essential hypertension Start: 11-17-2023 End: 11-17-2023 ambulatory NIKKI JAVIER Facility:[facility] Start: 11-17-2023 End: 11-17-2023 Patient encounter procedure Nikki Javier MD Work Phone: Neurology Comment on above: Parkinson's disease without dyskinesia or fluctuating manifestations (HCC) (Primary Dx) Start: 11-11-2023 End: 11-11-2023 ambulatory CHRISTO WARREN Facility:[facility] Start: 11-11-2023 End: 11-11-2023 Patient encounter procedure Israel CAMPBELL Work Phone: [facility] Comment on above: Acute otitis media, right (Primary Dx); Acute cough Start: 10-06-2023 End: 10-06-2023 ambulatory CHRISTO WARREN Facility:[facility] Start: 10-06-2023 End: 10-06-2023 Patient encounter procedure Christo Warren MD Work Phone: [facility] [place] Comment on above: Essential hypertensi on (Primary Dx) Start: 10-01-2023 End: 01-27-2024 Telephone encounter Bonny Bains APRN.LANDING SUPPORT SPECIALIST Work Phone: General Surgery Comment on above: Appointment Start: 09-29-2023 End: 09-29-2023 ambulatory BONNY BAINS Facility:[facility] Start: 09-29-2023 End: 09-29-2023 Patient encounter procedure Bonny Bains ELECTRONIC TESTERSandroLANDING SUPPORT SPECIALIST Work Phone: General Surgery Comment on above: FH: colon cancer in first degree relative <60 years old (Primary Dx); History of colonic polyps Start: 09-08-2023 Telephone encounter Christo Warren MD Work Phone: [facility] [place] Comment on above: Patient Question Start: 09-08-2023 End: 09-08-2023 ambulatory CHRISTO WARREN Facility:[facility] Start: 09-08-2023 End: 09-08-2023 Patient encounter procedure Christo Warren MD Work Phone: [facility] [place] Comment on above: Essential hypertensi on (Primary Dx); Anxiety and depression; RLS (restless legs syndrome); Screening for prostate cancer; Elevated PSA; History of colonic polyps; Gait disorder; Bradykinesia Start: 09-01-2023 Refill Christo Warren MD Work Phone: [facility] [place] Comment on above: Medication Question Start: 07-29-2023 Refill [facility] Comment on above: Refill Request Lab Orders Start: 03-04-2023 Telephone encounter [facility] Comment on above: Results Start: 02-28-2023 ambulatory Christo Warren MD Work Phone: [facility] Start: 02-24-2023 End: 02-24-2023 Patient encounter procedure Christo Warren MD Work Phone: [facility] [place] Comment on above: RLS (restless legs s yndrome) (Primary Dx); Hyperbilirubinemia; Abnormal blood cell count; Elevated PSA; Primary hypertension Start: 02-03-2023 Refill Christo Warren MD Work Phone: [facility] [place] Comment on above: Refill Request (SEE RX NOTES) Start: 01-24-2023 ambulatory [facility] [place] Comment on above: Population Health Na vigation Outreach ([employer] care gaps) Start: 01-20-2023 Telephone encounter Christo Warren MD Work Phone: [facility] [place] Comment on above: Results Start: 01-14-2023 Telephone encounter Christo Warren MD Work Phone: [facility] [place] Comment on above: Medication Problem ( Gabapentin) Start: 01-08-2023 Telephone encounter Christo Warren MD Work Phone: [facility] [place] Start: 01-07-2023 ambulatory Christo Warren MD Work Phone: [facility] [place] Comment on above: Sleep Problem unable to sleep Start: 09-13-2022 ambulatory Katrina Tovar [facility] [place] Comment on above: Population Health Na vigation Outreach ([employer] Care Gaps 5.30.23) Start: 04-05-2022 Refill Christo Warren MD Work Phone: [facility] Comment on above: Refill Request Start: 04-02-2022 ambulatory Christo Warren MD Work Phone: [facility] Comment on above: Allied Health Visit (Medication Adherence Outreach) Start: 03-31-2022 End: 03-31-2022 Patient encounter procedure Juan Carlos Abebe ELECTRONIC TESTER.LANDING SUPPORT SPECIALIST Work Phone: [facility] Comment on above: Tooth ache (Primary Dx) Start: 12-17-2021 ambulatory [facility] [place] Comment on above: Population Health Na vigation Outreach ([employer] Care Gaps) Start: 11-07-2021 Refill Christo Warren MD Work Phone: Speech Writer [employer] Comment on above: Refill Request Start: 05-01-2020 End: 05-01-2020 Subsequent hospital visit by physician Silke [facility] [place] Work Phone: Radiology Comment on above: Pain of left calf [M 79.662] Procedures Date Procedure Procedure Detail Performing Clinician Start: 02-13-2024 Colonoscopy Alexandra Willams on MA Start: 01-20-2023 Lipid 1996 panel - S sergei or Plasma Xochitl Justin Start: 05-01-2020 Radex spine lumbosac ral 2/3 views Christo Warren MD Work Phone: Start: 07-15-2017 Colonoscopy Christo Ray MD Work Phone: Start: 08-31-2015 Lipid 1996 panel - S sergei or Plasma Christo Warren MD Work Phone: Plan of Treatment Date Care Activity Detail Author Start: 02-12-2029 Screening for malignant neoplasm of colon [facility] Start: 2028 RSV Vaccine (1 - 1-dose 75+ series) RSV Vaccine (1 - 1-dose 75+ series) [facility] Start: 01-21-2028 Lipid 1996 panel - Serum or Plasma Lipid Screening [facility] Start: 01-21-2028 Lipid panel Lipid Screening [facility] Start: 01-20-2026 Diabetes Screening Diabetes Screening [facility] Start: 04-12-2025 Annual PCP Team Chronic Disease Visit Annual PCP Team Chronic Disease Visit [facility] Start: 04-12-2025 Covid-19 Vaccine ( season) Covid-19 Vaccine ( season) [facility] Comment on above: Postponed from 11/23/2023 (Declined at t his time) Start: 04-12-2025 Pneumococcal Vaccine: 50+ (1 of 1 - PCV) Pneumococcal Vaccine: 50+ (1 of 1 - PCV) [facility] Comment on above: Postponed from 06/20/2003 (Declined at t his time) Start: 04-12-2025 Shingrix Vaccine (1 of 2) Shingrix Vaccine (1 of 2) [facility] Comment on above: Postponed from 06/20/2003 (Declined at t his time) Start: 04-12-2025 Urine microalbumin profile DTaP,Tdap,Td Vaccine (1 - Tdap) [facility] Comment on above: Postponed from 1972 (Declined at t his time) Start: 02-21-2025 End: 02-21-2025 Patient encounter procedure Neurology Comment on above: 5 Month follow up Start: 11-30-2024 Annual PCP Team Chronic Disease Visit Annual PCP Team Chronic Disease Visit [facility] Start: 11-22-2024 Influenza vaccination Influenza Vaccine (Season Ended) [facility] Start: 11-19-2024 Annual PCP Team Chronic Disease Visit Annual PCP Team Chronic Disease Visit [facility] Start: 11-16-2024 End: 11-16-2024 Patient encounter procedure 11/16/2024 8:40 AM EDT Office Visit [facility] [place] [address] [place] [address] Christo Warren MD [address] [facility] [place] [id number] Follow up - BP [facility] [place] Comment on above: Follow up - BP Start: 10-18-2024 End: 10-18-2024 Patient encounter procedure 10/18/2024 11:00 AM EDT Office Visit Neurology [address] [place] [id number] Nikki Javier MD [address] [place], [place] [id number] 6m follow up Neurology Comment on above: 6m follow up Start: 10-05-2024 Annual PCP Team Chronic Disease Visit Annual PCP Team Chronic Disease Visit [facility] Start: 09-20-2024 Influenza vaccination Influenza Vaccine (#1) [facility] Comment on above: Postponed from 11/23/2023 (Declined at t his time) Start: 09-07-2024 Annual PCP Team Chronic Disease Visit Annual PCP Team Chronic Disease Visit [facility] Start: 09-06-2024 End: 09-06-2024 ambulatory 09/06/2024 4:30 PM EDT OT/PT/Speech [facility] [facility] [address] [place] [address] Mis Montgomery, PT [address] [place], [place] [id number] Parkinson's disease without dyskinesia or fluctuating manifestations (HCC) [G20.A1] [facility] Comment on above: Parkinson's disease without dyskinesia o r fluctuating manifestations (HCC) [G20.A1] Start: 08-10-2024 End: 11-09-2024 Comprehensive metabolic 2000 panel - Serum or Plasma COMPREHENSIVE METABOLIC PANEL Lab Routine Essential hypertension Expected: 08/10/2024, Expires: 11/09/2024 [facility] Work Phone: Comment on above: Expected: 08/10/2024, Expires: Start: 08-10-2024 End: 11-09-2024 Lipid 1996 panel - Serum or Plasma LIPID PANEL BASIC Lab Routine Essential hypertension Expected: 08/10/2024, Expires: 11/09/2024 [facility] Comment on above: Expected: 08/10/2024, Expires: Start: 07-15-2024 End: 10-14-2024 Comprehensive metabolic 2000 panel - Serum or Plasma COMPREHENSIVE METABOLIC PANEL Lab Routine Screening for malignant neoplasm of prostate Elevated PSA Essential hypertension Expected: 07/15/2024, Expires: 10/14/2024 [facility] Comment on above: Expected: 07/15/2024, Expires: Start: 07-15-2024 End: 10-14-2024 Lipid 1996 panel - Serum or Plasma LIPID PANEL BASIC Lab Routine Screening for malignant neoplasm of prostate Elevated PSA Essential hypertension Expected: 07/15/2024, Expires: 10/14/2024 [facility] Comment on above: Expected: 07/15/2024, Expires: Start: 04-19-2024 End: 04-19-2024 Patient encounter procedure 04/19/2024 11:30 AM EST Office Visit Neurology [address] [place] [phone] Nikki Javier MD [address] [place] [address] Four month follow up Neurology Comment on above: Four month follow up Start: 04-12-2024 End: 04-12-2024 Patient encounter procedure 04/12/2024 8:40 AM EST Office Visit Family Medicine [facility] [address] [place] [place] [id number] Christo Warren MD [address] [place] [id number] 6 month follow up [facility] Comment on above: 6 month follow up Start: 03-24-2024 Medicare Advantage Annual Wellness Visit Medicare Advantage Annual Wellness Visit [facility] Start: 02-25-2024 Annual PCP Team Chronic Disease Visit Annual PCP Team Chronic Disease Visit [facility] Start: 02-25-2024 Covid-19 Vaccine ( season) Covid-19 Vaccine ( season) [facility] Comment on above: Postponed from 11/22/2022 (Declined at t his time) Start: 02-25-2024 Pneumococcal Vaccine: 65+ (1 - PCV) Pneumococcal Vaccine: 65+ (1 - PCV) [facility] Comment on above: Postponed from 2018 (Declined at t his time) Start: 02-25-2024 Pneumococcal Vaccine: 65+ (1 of 1 - PCV) Pneumococcal Vaccine: 65+ (1 of 1 - PCV) [facility] Comment on above: Postponed from 2018 (Declined at t his time) Start: 02-25-2024 RSV Vaccine (1 - 1-dose 60+ series) RSV Vaccine (1 - 1-dose 60+ series) [facility] Comment on above: Postponed from 2013 (Declined at t his time) Start: 02-25-2024 Shingrix Vaccine (1 of 2) Shingrix Vaccine (1 of 2) [facility] Comment on above: Postponed from 06/20/2003 (Declined at t his time) Start: 02-25-2024 Urine microalbumin profile DTaP,Tdap,Td Vaccine (1 - Tdap) [facility] Comment on above: Postponed from 1972 (Declined at t his time) Start: 01-15-2024 End: 04-15-2024 CBC W Auto Differential panel - Blood COMPLETE BLOOD COUNT AND DIFFERENTIAL Lab Routine Screening for malignant neoplasm of prostate Elevated PSA Essential hypertension Expected: 01/15/2024, Expires: 04/15/2024 [facility] Work Phone: Comment on above: Expected: 01/15/2024, Expires: Start: 01-15-2024 End: 04-15-2024 Prostate Specific Ag Free [Mass/volume] in Serum or Plasma PROSTATE SPECIFIC ANTIGEN, FREE Lab Routine Screening for malignant neoplasm of prostate Elevated PSA Essential hypertension Expected: 01/15/2024, Expires: 04/15/2024 [facility] Comment on above: Expected: 01/15/2024, Expires: Start: 01-10-2024 Annual PCP Team Chronic Disease Visit Annual PCP Team Chronic Disease Visit [facility] Start: 12-01-2023 End: 12-01-2023 Patient encounter procedure 12/01/2023 11:40 AM EDT Office Visit Internal Medicine [facility] [address] [facility] [place] [place], [place] [phone] Rachel Martins, ELECTRONIC TESTER.LANDING SUPPORT SPECIALIST [address] [facility], [place] [address] bp check [facility] Comment on above: bp check Start: 11-23-2023 Covid-19 Vaccine ( season) Covid-19 Vaccine () [facility] Start: 11-23-2023 Covid-19 Vaccine () Covid-19 Vaccine () [facility] Start: 11-23-2023 Influenza vaccination [facility] Start: 11-17-2023 End: 11-17-2023 Patient encounter procedure 11/17/2023 2:00 PM EDT Office Visit Neurology [address] [place] [phone] Nikki Javier MD [address] [place] [address] 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] Neurology Comment on above: 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] Start: 10-06-2023 End: 10-06-2023 Patient encounter procedure 10/06/2023 11:20 AM EDT Office Visit Family Medicine [facility] [address] [facility] [place], [place] [address] Christo Warren MD [address] [place], [place] [id number] 4 week follow up [facility] Comment on above: 4 week follow up Start: 09-29-2023 End: 09-29-2023 Patient encounter procedure 09/29/2023 4:00 PM EDT Office Visit General Surgery [address] [place] [address] Eulalio Mohan MD [address] [place] [address] History of colonic polyps [Z86.010] General Surgery Comment on above: History of colonic polyps [Z86.010] Start: 09-21-2023 Influenza vaccination Influenza Vaccine (#1) [facility] Comment on above: Postponed from 11/22/2022 (Declined at t his time) Start: 09-08-2023 End: 12-08-2023 Prostate Specific Ag Free [Mass/volume] in Serum or Plasma PROSTATE SPECIFIC ANTIGEN, FREE Lab Routine Screening for prostate cancer Elevated PSA Expected: 09/08/2023, Expires: 12/08/2023 [facility] Work Phone: Comment on above: Expected: 09/08/2023, Expires: Start: 09-08-2023 End: 12-08-2023 PSA/PROSTATE SPECIFIC ANTIGEN SCREENING PSA/PROSTATE SPECIFIC ANTIGEN SCREENING Lab Routine Screening for prostate cancer Elevated PSA Expected: 09/08/2023, Expires: 12/08/2023 [facility] Comment on above: Expected: 09/08/2023, Expires: Start: 09-08-2023 End: 09-08-2023 Patient encounter procedure 09/08/2023 10:00 AM EDT Office Visit Family [facility] [address] [place] [address] Christo Warren MD [address] [facility] [place], [place] [address] 6 month follow up Family [facility] Comment on above: 6 month follow up Start: 03-24-2023 Advance Directive Discussion Advance Directive Discussion [facility] Start: 03-04-2023 End: 06-03-2023 CBC W Ordered Manual Differential panel - Blood PATHOLOGIST INTERPRETATION WITH CBC AND DIFF Lab Routine Hyperbilirubinemia Expected: 03/04/2023, Expires: 06/03/2023 [facility] Work Phone: Comment on above: Expected: 03/04/2023, Expires: Start: 03-04-2023 End: 06-03-2023 Hepatic function 2000 panel - Serum or Plasma HEPATIC FUNCTION PNL Lab Routine Hyperbilirubinemia Expected: 03/04/2023, Expires: 06/03/2023 [facility] Work Phone: Comment on above: Expected: 03/04/2023, Expires: 4 Start: 03-04-2023 End: 06-03-2023 bilirubin panel [Mass/volume] - Serum or Plasma BILIRUBIN FRACTION Lab Routine Hyperbilirubinemia Expected: 03/04/2023, Expires: 06/03/2023 [facility] Work Phone: Comment on above: Expected: 03/04/2023, Expires: 4 Start: 03-04-2023 End: 06-03-2023 RETIC COUNT RETIC COUNT Lab Routine Hyperbilirubinemia Expected: 03/04/2023, Expires: 06/03/2023 [facility] Work Phone: Comment on above: Expected: 03/04/2023, Expires: 4 Start: 01-20-2023 End: 04-21-2023 CBC W Auto Differential panel - Blood CBC + DIFF Lab Routine Abnormal blood cell count Expected: 01/20/2023, Expires: 04/21/2023 [facility] Work Phone: Comment on above: Expected: 01/20/2023, Expires: 4 Start: 01-20-2023 End: 04-21-2023 bilirubin panel [Mass/volume] - Serum or Plasma BILIRUBIN FRACTION Lab Routine Hyperbilirubinemia Expected: 01/20/2023, Expires: 04/21/2023 [facility] Work Phone: Comment on above: Expected: 01/20/2023, Expires: 4 Start: 12-19-2022 COLORECTAL CANCER SCREENING COLORECTAL CANCER SCREENING [facility] Start: 12-19-2022 FECAL OCCULT BLOOD FECAL OCCULT BLOOD [facility] Start: 12-19-2022 Screening for malignant neoplasm of colon [facility] Start: 11-22-2022 Covid-19 Vaccine () Covid-19 Vaccine () [facility] Start: 11-22-2022 Influenza vaccination [facility] Start: 11-19-2022 ANNUAL PCP TEAM CHRONIC DISEASE VISIT ANNUAL PCP TEAM CHRONIC DISEASE VISIT [facility] Start: 07-15-2022 Screening for malignant neoplasm of colon [facility] Start: 03-24-2022 ADVANCE DIRECTIVE DISCUSSION ADVANCE DIRECTIVE DISCUSSION [facility] Start: 03-12-2022 BP CONTROLLED (<130/80) BP CONTROLLED (<130/80) [facility] Start: 11-22-2021 Influenza vaccination INFLUENZA (#1) [facility] Start: 05-26-2021 COVID-19 VACCINE (4 - Booster for Moderna series) COVID-19 VACCINE (4 - Booster for Moderna series) [facility] Start: 05-01-2021 ANNUAL PCP TEAM CHRONIC DISEASE VISIT ANNUAL PCP TEAM CHRONIC DISEASE VISIT [facility] Start: 03-24-2021 ADVANCE DIRECTIVE DISCUSSION ADVANCE DIRECTIVE DISCUSSION [facility] Start: 11-24-2020 COVID-19 VACCINE (3 - Booster for Moderna series) COVID-19 VACCINE (3 - Booster for Moderna series) [facility] Start: 08-30-2020 Lipid 1996 panel - Serum or Plasma Lipid Screening [facility] Start: 08-30-2020 LIPID SCREEN LIPID SCREEN [facility] Start: 08-30-2020 PROSTATE CANCER SCREENING DISCUSSION PROSTATE CANCER SCREENING DISCUSSION [facility] Start: 07-16-2019 Colonoscopy COLONOSCOPY [facility] Start: 07-16-2019 COLORECTAL CANCER SCREENING COLORECTAL CANCER SCREENING [facility] Start: 10-30-2018 BP CONTROLLED (<130/80) BP CONTROLLED (<130/80) [facility] Start: 08-30-2018 DIABETES SCREEN DIABETES SCREEN [facility] Start: 08-30-2018 Diabetes Screening Diabetes Screening [facility] Start: 07-15-2018 Colonoscopy COLONOSCOPY [facility] Start: 07-15-2018 Screening for malignant neoplasm of colon Colonoscopy [facility] Start: 2018 Pneumococcal Vaccine: 65+ (1 - PCV) Pneumococcal Vaccine: 65+ (1 - PCV) [facility] Start: 2018 PNEUMOCOCCAL: 65+ (1 - PCV) PNEUMOCOCCAL: 65+ (1 - PCV) [facility] Start: 2013 RSV Vaccine (1 - 1-dose 60+ series) RSV Vaccine (1 - 1-dose 60+ series) [facility] Start: 06-20-2003 Pneumococcal Vaccine: 50+ (1 of 1 - PCV) Pneumococcal Vaccine: 50+ (1 of 1 - PCV) [facility] Start: 06-20-2003 SHINGRIX VACCINE (1 of 2) SHINGRIX VACCINE (1 of 2) [facility] Start: 1998 COLOGUARD (FIT-DNA) COLOGUARD (FIT-DNA) [facility] Start: [address] COLONOGRAPHY [facility] Start: 1998 FECAL OCCULT BLOOD FECAL OCCULT BLOOD [facility] Start: 1998 Screening for malignant neoplasm of colon [facility] Start: 1998 SIGMOIDOSCOPY SIGMOIDOSCOPY [facility] Start: 1972 Urine microalbumin profile [facility] Hemoglobin.gastroint est inal.lower [Presence] in Stool by Immunoassay FECAL OCCULT BLOOD TEST Lab Routine Screening for colon cancer Ordered: 01/24/2023 [facility] Work Phone: Comment on above: Ordered: 01/24/2023 [facility] Immunizations Immunization Date Immunization Notes Care Provider Drew rodriguez 10-30-2017 influenza virus vacc ine, unspecified formulation Christo Warren MD Work Phone: [facility] Payers Date Payer Category Payer Medicare (Managed Care) KERWIN TOM [id number] 2024 Self-pay 2024 Unknown [id number] 2020 Medicare [id number] 2020 Private Health Insurance [id number] Unknown [id number] Unknown [id number] Unknown [id number] Unknown [id number] Social History Date Type Detail Facility Start: 08-26-2017 End: 11-19-2021 Tobacco smoking status [facility] Never smoked tobacco [facility] Start: 08-26-2017 End: 11-19-2021 Tobacco use and exposure Smokeless tobacco non-user [facility] Start: 05-01-2020 End: 03-12-2021 Alcohol intake Current drinker of alcohol (finding) [facility] Start: 08-14-2015 History SDOH Alcohol Comment occasionally [facility] Start: 1955 Sex Assigned At Male [facility] Start: 04-01-2020 End: 11-13-2021 Exposure to SARS-CoV-2 (event) Not sure [facility] Work Phone: Start: 11-14-2021 History SDOH Alcohol Frequency 3 [facility] Start: 11-14-2021 History SDOH Alcohol Std Drinks 1 [facility] Start: 11-14-2021 History SDOH Social Connections Phone 4 [facility] Start: 11-14-2021 History SDOH Social Connections Get Together 5 [facility] Start: 11-14-2021 History SDOH Stress 2 [facility] Start: 11-14-2021 End: 01-08-2023 History of Social function [facility] Start: 11-14-2021 End: 01-08-2023 Social connection and isolation panel [facility] Active Member of [facility] bs or Organizations Not on file [facility] Are you now , , , , never or living with a partner? [facility] How often to you hav e a drink containing alcohol? 2-4 times a month [facility] How many standard dr inks containing alcohol do you have on a typical day? 1 or 2 [facility] How often do you hav e 6 or more drinks on 1 occasion? Never [facility] Do you feel stress - tense, restless, nervous, or anxious, or unable to sleep at night because your mind is troubled all the time - these days [OSQ] Only a little [facility] (I/We) worried luis f er (my/our) food would run out before (I/we) got money to buy more. Never true [facility] In the past 12 month s, was there a time when you were not able to pay the mortgage or rent on time? No [facility] Start: 04-25-2020 Gender identity Identifies as male gender (finding) [facility] Start: 04-25-2020 Sexual orientation Heterosexual (finding) [facility] Start: 03-31-2023 End: 08-05-2024 Alcohol intake Ex-drinker (finding) [facility] Functional Status Date Assessment Result Facility 04-07-2014 Are you deaf, or do you have serious difficulty hearing No 04/07/2014 12:13 PM Seven Odom LPN No [facility] 04-07-2014 Are you blind, or do you have serious difficulty seeing, even when wearing glasses No 04/07/2014 12:13 PM Seven Odom LPN No [facility] 04-07-2014 Do you have serious difficulty walking or climbing stairs No 04/07/2014 12:13 PM Seven Odom LPN No [facility] 04-07-2014 Do you have difficul ty dressing or bathing No 04/07/2014 12:13 PM Seven Odom LPN [facility] 04-07-2014 Because of a physica l, mental, or emotional condition, do you have difficulty doing errands alone such as visiting a physician's office or shopping No 04/07/2014 12:13 PM Seven Odom LPN No [facility] Mental Status Date Assessment Result Facility 04-07-2014 Because of a physica l, mental, or emotional condition, do you have serious difficulty concentrating, remembering, or making decisions No 04/07/2014 12:13 PM Seven Odom LPN No [facility] Clinical Notes 09-09-2017 to 09-08-2024 Gabriella Diaz MA - 09/08/2024 2:35 PM Mis Lezama, PT - 09/06/2024 7:18 PM Mis Lezama, PT - 09/06/2024 6:44 PM EDTTelephone Encounter - Nikki Javier MD - 08/18/2024 11:33 AM EDT Note Date & Type Note Facility 09-08-2024 History of Present illness Narrative POPULATION HEALTH NAVIGATION OUTREACH Action/FYI [facility] for below and needs appointment to address: Medicare Advantage Annual Wellness Visit No results found for: HBA1C Last 1 Encounter BP Readings: Date: BP: 08/05/2024 144/87 Patient due for: Medicare Annual Wellness Visit Follow up Appointment - Return in about 4 weeks (around 05/10/2024). Karen Active: Yes Spoke to patient. Scheduled with PCP - declined PCP team. Noted upcoming appointment to address due care gaps. Patient asking about medication and why PCP wasn't filling it - explained that PCP stated that neurology stopped it so he would want to follow up with them as to why it was stopped. Didn't address AWV as patient previously declined with previous navigator. HCC: No Reason for Outreach Care Gap/HCC or Scheduling Wellness Visits Care Gaps due: Follow-up Appointment Controlling Blood Pressure Patient Contacted: Spoke to patient/parent/or legal guardian Patient identified by name and : Yes Care Gap/HCC/Scheduling Wellness actions taken: Patient scheduled/pended orders: Follow-up Appointment 11/16/2024 in [facility] with CHRISTO WARREN - Follow up - BP, Please address due care 02/21/2025 in [facility] with NIKKI JAVIER - 5 Month follow up Navigation Signature: Gabriella Diaz MA September 08, 2024 2:35 PM documented in this encounter [facility] 09-06-2024 History of Present illness Narrative Program_ID:[id number] Access Code: [email or web address] URL: [email or web address]/ Date: 09-06-2024 Prepared By: Mis Montgomery Program Notes Exercises - Standing Hamstring Stretch on Chair - 3 x daily - 7 x weekly - 1 sets - 2 reps - Standing Hip Flexor Stretch - 2-3 x daily - 5-6 x weekly - 2 sets - 1 reps - Supine Lower Trunk Rotation - 1 x daily - 4-5 x weekly - 2-3 sets - 10 reps - Seated Cervical Retraction and Extension - 1 x daily - 4-5 x weekly - 2-3 sets - 10 reps - Seated Scapular Retraction - 1 x daily - 4-5 x weekly - 2-3 sets - 10 reps - Single Arm Doorway Pec Stretch at 120 Degrees Abduction - 1 x daily - 4-5 x weekly - 2-3 sets - 10 reps Images from the original note were not included. Episode Visit Count: 1 Therapist That Will Accept/Oversee The Plan Of Care: Nikhil Montgomery Start of Care Date: 09/06/24 Onset Date: 09/07/23 (~ 1 year ago) Plan of Care Certification Date: 09/06/24 Next Certification Due Date: 11/05/24 Patient Identified by Name and Date of : Yes [facility] PHYSICAL THERAPY EVALUATION PLAN OF CARE: Assessment: Markus Stratton presents with diagnosis of Parkinson's that interferes with stair negotiation, physical activities, walking in the community, recreational activities, working (walking slowly) . The patient presents with impairments in flexibility, gait, independence in exercise, overall function, posture, and symptom management. PROMIS (Patient-Reported Outcomes Measurement Information System) scores were reviewed and identified as within normal limits. Prognosis for therapy is Good due to: current objective clinical presentation, good overall health status, good support system/ coping skills Fair due to: chronic nature of impairments . He presents with mild deficits related to his PD/Parkinsonism but also presents with posture & flexibility deficits affecting his gait & mobility; he also presents with core weakness (abdominals & scap stabilizers). The patient will benefit from skilled therapy services to meet the goals established for this plan of care as noted below. Classification Diagnosis Grouping: Parkinson s Disease Movement System Diagnosis: Hypokinesia Goals for Episode of Care: established 09/06/24 Patient will increase strength of abdominals & scap stabilizers to allow patient to improve gait mechanics/gait pattern and improve ability to complete ADLs. Patient will increase flexibility of B LEs & neck/shoulder muscles to WNL to improve ability to maintain proper posture and improve mechanics for gait. Patient will be able to correct postural deviations independently in order to improve postural alignment of trunk during ambulation, sitting, standing, and functional activities and allow for normal mechanics. Patient will demonstrate current home exercise program independently. Patient will improve average gait speed on Six Minute Walk Test to WNL to demonstrate improved endurance and community ambulation. Patient Goals: I have no clue Time Frame for Goals and Treatment : 11/05/24 Planned Interventions, Frequency, and Duration: Current Frequency: 1x/week Duration: 8 weeks Total Number of Visits Planned: 6 Planned Treatment Interventions: Therapeutic exercise (66587), Neuromuscular re-education (76653), Therapeutic activities (37723), Self-fpc management (67566), Gait Training (57210), Patient/Family/Caregiver Education, Body Mechanics Training PLAN FOR NEXT VISIT: address posture/gait, flexibility & core strength. Patient demonstrates fair understanding of plan of care and treatment. The above goals and plan of care were discussed and agreed upon by patient/family. SUBJECTIVE: pt reports possible Parkinsons, says they're still trying to figure it out. he reports mild mobility issues with slower gait, occasional freezing and occasional tremors for about 1 year. thinks he's doing better since taking the prescribed meds (sinemet). walks 2 miles/day for exercise. 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 he questions why he's coming to PT and whether it will help him. Pt noted issues with slow gait on a recent trip with his family. He reports improvement since recent changes with sinemet (reports increased energy, improved/faster gait and less freezing). He also takes Gabapentin for RLS and a sleep aide at night. 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 Recreation / Current Exercise: walks 2 miles/day, stretches every night Home Environment Patient Lives With: Significant Other Intake Information: Prescription present Previous Treatment: (medications) Medications: Independent with managing medication, Comments Medication Comments: recently made changes to frequency & compliance with taking routinely Reported Movement Impairments: Freezing, Tremors Freezing: Gait Initiation Reported Speech/Swallowing Difficulties: (pt reports occasional drooling) Pain: Pain Pain Location: Upper Arm - Left, Upper Arm - Right Description: Sore Frequency: Intermittent (at night) PROMIS Scales 09/06/2024 Higher is Better Self-Eff Symptom - T Score 43 (Average) Self-Eff Symptom - Percentile 24 Mobility - T Score 51 (within normal limits) Mobility - Percentile 54 Proxy-reported T-scores: mean of general population = 50. 5 points is clinically meaningfully difference Percentiles provide an indication of how the patient's score ranks in relation to the general population. Higher percentile rankings indicate better function/quality of life. 50th percentile is the average of the general population and indicates half of respondents had a worse score. OBJECTIVE MEASURES WITH LEVEL OF FUNCTION: Posture / Alignment Posture: Forward head, Rounded shoulders, Comments Posture comment: abdominal weakness grossly 3-/5 Lumbar Spine AROM Lumbar Flexion: Moderate limitation, Minimal limitation (HS tightness) Lumbar Extension: Minimal limitation Cervical Spine ROM Cervical ROM : Limitation AROM Cervical Flexion AROM: Normal Cervical Extension AROM: Moderate limitation Cervical Side-Bend Right AROM: Minimal limitation Cervical Side-Bend Left AROM: Minimal limitation Cervical Rotation Right AROM: Normal Cervical Rotation Left AROM: Normal UE AROM R UE AROM: wnl L UE AROM: wnl LE AROM R LE AROM: wnl L LE AROM: wnl LE Flexibility Flexibility: Hamstring Flexibility, Straight Leg Raise, Hip Flexor Flexibility, Comments R SLR Flexibility: 60-65 degrees L SLR Flexibility: 60-65 degrees R Hip Flexor Flexibility: moderate tightness L Hip Flexor Flexibility: moderate tightness UE and Cervical Strength R UE Strength: grossly 5/5 excetp scap stabilizer weakness 3 to 3+/5 L UE Strength: grossly 5/5 except scap stabilizer weakness 3 to 3+/5 LE Strength R LE Strength: grossly 5/5 L LE Strength: grossly 5/5 Mobility Rolling: Supervision, Independent (pt reports difficulty/effort) Mobility Comments: indpendent with all transfers including floor to stand Gait Gait: Independent Gait Device: None Gait Deviations: General Deviations General Deviations/Observations: Mahi decreased, Arm swing decreased, Step length decreased (flexed neck posture) Gait Observation: tends to walk with flexed neck (looking down), decreased step length & mahi Stairs: Independent (10 steps reciprocal without HR) Balance Static Standing Balance: Narrow Base of Support, Tandem Stance, Single Leg Stance Narrow Base of Support: Good- Tandem Stance: 5-10 seconds Single Leg Stance: 10-15 seconds R/L Education: Education Learning/educational needs: Home exercise program, Plan of Care, Posture, Body Mechanics, Gait Training Education Provided: Yes, see treatment interventions for education provided Education Provided To: Patient Education Mode/Type: Demonstration, Explanation/Discussion, Literature/Printed Materials, Performance Response to Education/Teach Back: States/Identifies, Return Demonstration, Requires Review/Additional Education TREATMENT: PT Treatment Interventions: Therapeutic Exercise, Gait Training Evaluation Therapeutic Exercise: 1: *seated/standing neck retraction & extension 2: *seated/standing scap sets 10x 3: *doorway pec stretch 4: *HS stretch long-sit/standing R/L 5: *standing hip flexor stretch R/L 6: *supine LTR stretch R/L Skilled Intervention: Patient was educated in proper exercise technique and purpose for exercises. Reviewed and educated patient on additions/changes for home exercise program as above (*). Skilled judgment was used in selection of appropriate interventions. Provided written instruction for home exercise program to facilitate proper performance and compliance. Correct performance of therapeutic exercises was facilitated with verbal and visual cuing. Educated patient on rationale for performing exercises in regards to improving fitness, including balance, and ROM and function . Patient education as noted. Gait Trainin: gait activities with VCs for upright stance/posture, increased step length & arm swing Skilled Intervention: Facilitated proper gait cycle with the use of verbal and visual cues for correction of gait deviations identified in the objective section above. Billing * Evaluation Moderate Complexity: 1 Unit Therapeutic Exercise Treatment Minutes: 20 Gait Training Treatment Minutes: 5 Skilled Treatment Time Minutes (timed and untimed codes): 55 Total Session Time (minutes): 55 Session Start Time : 1646 Session Stop Time : 1741 Mis Montgomery PT documented in this encounter [facility] 09-06-2024 Note HNO ID: [id number] Author: MIS MONTGOMERY PT Service: ? Author Type: Physical Therapist Type: Progress Notes Filed: 09/06/2024 19:21 Note Text: Episode Visit Count: 1 Therapist That Will Accept/Oversee The Plan Of Care: Nikhil Montgomery Start of Care Date: 09/06/24 Onset Date: 09/07/23 (~ 1 year ago) Plan of Care Certification Date: 09/06/24 Next Certification Due Date: 11/05/24 Patient Identified by Name and Date of : Yes [facility] THERAPY PHYSICAL THERAPY EVALUATION PLAN OF CARE: Assessment: Markus Stratton presents with diagnosis of Parkinson's that interferes with stair negotiation, physical activities, walking in the community, recreational activities, working (walking slowly) . The patient presents with impairments in flexibility, gait, independence in exercise, overall function, posture, and symptom management. PROMIS? (Patient-Reported Outcomes Measurement Information System) scores were reviewed and identified as within normal limits. Prognosis for therapy is Good due to: current objective clinical presentation, good overall health status, good support system/ coping skills Fair due to: chronic nature of impairments . He presents with mild deficits related to his PD/Parkinsonism but also presents with posture AND flexibility deficits affecting his gait AND mobility; he also presents with core weakness (abdominals AND scap stabilizers). The patient will benefit from skilled therapy services to meet the goals established for this plan of care as noted below. Classification Diagnosis Grouping: Parkinson?s Disease Movement System Diagnosis: Hypokinesia Goals for Episode of Care: established 09/06/24 Patient will increase strength of abdominals AND scap stabilizers to allow patient to improve gait mechanics/gait pattern and improve ability to complete ADLs. Patient will increase flexibility of B LEs AND neck/shoulder muscles to WNL to improve ability to maintain proper posture and improve mechanics for gait. Patient will be able to correct postural deviations independently in order to improve postural alignment of trunk during ambulation, sitting, standing, and functional activities and allow for normal mechanics. Patient will demonstrate current home exercise program independently. Patient will improve average gait speed on Six Minute Walk Test to WNL to demonstrate improved endurance and community ambulation. Patient Goals: I have no clue Time Frame for Goals and Treatment : 11/05/24 Planned Interventions, Frequency, and Duration: Current Frequency: 1x/week Duration: 8 weeks Total Number of Visits Planned: 6 Planned Treatment Interventions: Therapeutic exercise (24584), Neuromuscular re-education (57788), Therapeutic activities (98146), Self-fpc management (29498), Gait Training (36494), Patient/Family/Caregiver Education, Body Mechanics Training PLAN FOR NEXT VISIT: address posture/gait, flexibility AND core strength. Patient demonstrates fair understanding of plan of care and treatment. The above goals and plan of care were discussed and agreed upon by patient/family. SUBJECTIVE: pt reports possible Parkinsons, says they're still trying to figure it out. he reports mild mobility issues with slower gait, occasional freezing and occasional tremors for about 1 year. thinks he's doing better since taking the prescribed meds (sinemet). walks 2 miles/day for exercise. 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 he questions why he's coming to PT and whether it will help him. Pt noted issues with slow gait on a recent trip with his family. He reports improvement since recent changes with sinemet (reports increased energy, improved/faster gait and less freezing). He also takes Gabapentin for RLS and a sleep aide at night. 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 Recreation / Current Exercise: walks 2 miles/day, stretches every night Home Environment Patient Lives With: Significant Other Intake Information: Prescription present Previous Treatment: (medications) Medications: Independent with managing medication, Comments Medication Comments: recently made changes to frequency AND compliance with taking routinely Reported Movement Impairments: Freezing, Tremors Freezing: Gait Initiation Reported Speech/Swallowing Difficulties: (pt reports occasional drooling) Pain: Pain Pain Location: Upper Arm - Left, Upper Arm - Right Description: Sore Frequency: Intermittent (at night) PROMI (more content not included)... [facility] 08-18-2024 Telephone encounter Note This RN placed call back to patient and relayed that TW would like him to stay at current dose that he feels good at (1 tablet BID). No need to continue the titration. Pt appreciated call back to verify. We ended call pleasantly. GAY Moy, RN, BA [facility] Work Phone: 08-18-2024 Miscellaneous Notes This RN placed call back to patient and relayed that TW would like him to stay at current dose that he feels good at (1 tablet BID). No need to continue the titration. Pt appreciated call back to verify. We ended call pleasantly. GAY Moy, RN, BA May have miscommunicated, he doesn't need to stop it, only stop the titration at the dose that is helping and then continue on that dose rather than continuing to increase. If he feels good on 1 pill twice a day should stay on that dose. This RN called and spoke to patient and relayed TW's recommendations. Pt is apprehensive to go off completely. But did state that this is the goal he and TW discussed. States that he is taking C/L 25-100 mg 1 tablet BID. States that the third administration keeps him up all night so he does not take it. Will report back in one week as to how he is feeling off of the medication. We ended call pleasantly. GAY Moy, RN, BA Thanks for the update. Can you let him know if he is feeling good he can stop at whatever dose he is taking now? He was given leeway to titrate as high as 2 pills three times a day but I think he's only at 1 pill TID right now. We discussed stopping if he feels well but want to make sure he remembers! Thanks Call received for Nikki Javier MD regarding Markus Stratton 1955. Caller: Self Patient Identified by Name and : Yes Was permission obtained from patient ? NA Reason for Call: Other: Carlitos wanted to inform Dr. Javier that he is doing well with his current medication. His symptoms are improving, and he feels more energetic throughout the day. Last Office Visit: 08/05/2024 Last [facility] visit: Visit date not found Next scheduled appointment: 02/21/2025 Best number to reach caller: [phone] Best time to reach caller: any Is it OK to leave a detailed voice message? Yes Roberta Paris documented in this encounter [facility] 08-18-2024 Telephone encounter Note May have miscommunicated, he doesn't need to stop it, only stop the titration at the dose that is helping and then continue on that dose rather than continuing to increase. If he feels good on 1 pill twice a day should stay on that dose. [facility] 08-18-2024 Telephone encounter Note This RN called and spoke to patient and relayed TW's recommendations. Pt is apprehensive to go off completely. But did state that this is the goal he and TW discussed. States that he is taking C/L 25-100 mg 1 tablet BID. States that the third administration keeps him up all night so he does not take it. Will report back in one week as to how he is feeling off of the medication. We ended call pleasantly. GAY Moy, RN, BA [facility] 08-18-2024 Telephone encounter Note Thanks for the update. Can you let him know if he is feeling good he can stop at whatever dose he is taking now? He was given leeway to titrate as high as 2 pills three times a day but I think he's only at 1 pill TID right now. We discussed stopping if he feels well but want to make sure he remembers! Thanks T [facility] 08-18-2024 Telephone encounter Note Call received for Nikki Javier MD regarding Markus Stratton 1955. Caller: Self Patient Identified by Name and : Yes Was permission obtained from patient ? NA Reason for Call: Other: Carlitos wanted to inform Dr. Javier that he is doing well with his current medication. His symptoms are improving, and he feels more energetic throughout the day. Last Office Visit: 08/05/2024 Last [facility] visit: Visit date not found Next scheduled appointment: 02/21/2025 Best number to reach caller: [phone] Best time to reach caller: any Is it OK to leave a detailed voice message? Yes Roberta Paris T [facility] 08-05-2024 Instructions Nikki Javier MD - 08/05/2024 12:22 PM EDT Let's start a medication called carbidopa/levodopa. It's a symptomatic medication for Parkinson's Disease that helps replace dopamine to improve movement symptoms. Take a half pill three times a day for the first week, then increase to a full pill three times a day. Depending on how you respond you can go up to 1.5 pills three times a day after a few weeks, and then 2 pills three times a day after a few more weeks if no benefit or side effects. It works best when taken before meals, but if you get nauseous when taking it, eating a snack with it (preferably without protein) is ok. Watch out for side effects such as nausea, light-headedness, hallucinations, fatigue, or extra movements (dyskinesia). Breakfast Lunch Dinner Week 1 /2 /2 1/2 Week 2-3 1 1 1 Week 4-5 1.5 1.5 1.5 Week 6 and on 2 2 2 You can stop at a lower dose if you feel great on it or have side effects Add a third pill of gabapentin - take 1 around 6 PM and 2 around 9-10 PM. documented in this encounter [facility] 08-05-2024 Note HNO ID: [id number] Author: NIKKI JAVIER MD Service: ? Author Type: Physician Type: Progress Notes Filed: 08/05/2024 15:11 Note Text: FOLLOW UP NOTE Subjective Markus Stratton is a 69 year old male who presents for follow up. CC: PD, RLS Summary of prior care: 10/2023 right-handed male with a history of RLS and family history of PD who presents for evaluation of possible parkinsonism. 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 Presentation c/w PD. Placed referral to PT and OT for PD therapy. Start levodopa titrate to 200 mg TID, discussed side effects and proper timing. Gave info on PD research at [facility]. 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 90 tablet 3 pramipexole (MIRAPEX) 0.5 mg tablet Take 1 tablet by mouth daily at bedtime. 90 tablet 1 aspirin 325 mg ORAL tablet Take 1 tablet by mouth once daily. 0 vitamin B complex (B COMPLEX 1 ORAL) Take by mouth once daily. melatonin 10 mg tab Take 10 mg by mouth daily at bedtime. benzonatate (TESSALON PERLE) 100 mg capsule Take 1 capsule by mouth three times a day as needed. (Patient not taking: Reported on 08/05/2024) 30 capsule 0 No current facility-administered medications for this visit. Objective OBJECTIVE 08/05/24 1135 BP: 144/87 BP Position: Sitting Pulse: 61 Temp: 36.7 ?C (98 ?F) TempSrc: Temporal SpO2: 96% Weight: 90.9 kg (200 lb 6.4 oz) General: General Appearance: Well appearing, alert, in no acute distress, well-hydrated, well nourished. Head: Normocephalic Neck: Supple Heart: RRR Neurologic Exam: Mental Status: He is alert. He is fully oriented. Attention is mildly impaired. Memory is intact. Language shows normal comprehension and fluency. Affect is appropriate. Cranial Nerves: Extraocular movements show full and smooth pursuits. No nystagmus. Visual carpio are full to confrontation. Facial sensation is intact. Facial activation is symmetric. Hearing is intact to conversation. There is mild hypomimia. There is mild hypophonia. There is no dysarthria. Shoulder shrug is slightly delayed on left. Motor: Muscle bulk is normal. No tremor. Mod L>R bradykinesia. Mild rigidity. Off medicine today Coordination: Finger to nose is smooth without ataxia. Gait/station: Normal mahi, narrow base, mildly decreased arm swing on L>R, mildly stooped DATA REVIEW Actual films/image/tracing reviewed and summarized as follows: n/a Old records reviewed and summarized as follows: n/a Assessment/Plan ASSESSMENT AND PLAN: Markus Stratton is a 69 year old right-handed male with a history of RLS and family history of PD who presents for evaluation of possible parkinsonism. 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 1. PD - Has noticed worsening PD symptoms - Resume levodopa titrate to 200 mg TID - Encouraged exercise, placed referral for PT / OT 2. RLS - Increase gabapentin to 300 mg around dinner and 600 mg 90 minutes before bedtime Follow-up: 5 months Risks AND Side Effects of Newly Prescribed Medication, Discussed with Patient: YES Nikki Javier MD [facility] Neurology [facility] 08-05-2024 History of Present illness Narrative FOLLOW UP NOTE Subjective Markus Stratton is a 69 year old male who presents for follow up. CC: PD, RLS Summary of prior care: 10/2023 right-handed male with a history of RLS and family history of PD who presents for evaluation of possible parkinsonism. 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 Presentation c/w PD. Placed referral to PT and OT for PD therapy. Start levodopa titrate to 200 mg TID, discussed side effects and proper timing. Gave info on PD research at [facility]. 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 90 tablet 3 pramipexole (MIRAPEX) 0.5 mg tablet Take 1 tablet by mouth daily at bedtime. 90 tablet 1 aspirin 325 mg ORAL tablet Take 1 tablet by mouth once daily. 0 vitamin B complex (B COMPLEX 1 ORAL) Take by mouth once daily. melatonin 10 mg tab Take 10 mg by mouth daily at bedtime. benzonatate (TESSALON PERLE) 100 mg capsule Take 1 capsule by mouth three times a day as needed. (Patient not taking: Reported on 08/05/2024) 30 capsule 0 No current facility-administered medications for this visit. Objective OBJECTIVE 08/05/24 1135 BP: 144/87 BP Position: Sitting Pulse: 61 Temp: 36.7 C (98 F) TempSrc: Temporal SpO2: 96% Weight: 90.9 kg (200 lb 6.4 oz) General: General Appearance: Well appearing, alert, in no acute distress, well-hydrated, well nourished. Head: Normocephalic Neck: Supple Heart: RRR Neurologic Exam: Mental Status: He is alert. He is fully oriented. Attention is mildly impaired. Memory is intact. Language shows normal comprehension and fluency. Affect is appropriate. Cranial Nerves: Extraocular movements show full and smooth pursuits. No nystagmus. Visual carpio are full to confrontation. Facial sensation is intact. Facial activation is symmetric. Hearing is intact to conversation. There is mild hypomimia. There is mild hypophonia. There is no dysarthria. Shoulder shrug is slightly delayed on left. Motor: Muscle bulk is normal. No tremor. Mod L>R bradykinesia. Mild rigidity. Off medicine today Coordination: Finger to nose is smooth without ataxia. Gait/station: Normal mahi, narrow base, mildly decreased arm swing on L>R, mildly stooped DATA REVIEW Actual films/image/tracing reviewed and summarized as follows: n/a Old records reviewed and summarized as follows: n/a Assessment/Plan ASSESSMENT & PLAN: Markus Stratton is a 69 year old right-handed male with a history of RLS and family history of PD who presents for evaluation of possible parkinsonism. 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 1. PD - Has noticed worsening PD symptoms - Resume levodopa titrate to 200 mg TID - Encouraged exercise, placed referral for PT / OT 2. RLS - Increase gabapentin to 300 mg around dinner and 600 mg 90 minutes before bedtime Follow-up: 5 months Risks & Side Effects of Newly Prescribed Medication, Discussed with Patient: YES Nikki Javier MD [facility] Neurology documented in this encounter [facility] 08-05-2024 Note HNO ID: [id number] Author: KACY WOOD LPN Service: ? Author Type: LICENSED NURSE Type: Progress Notes Filed: 08/05/2024 15:11 Note Text: [facility] 07-19-2024 Note HNO ID: [id number] Author: ANTIONE OSWALD CPhT Service: ? Author Type: Supervisor Pre Wave Type: Progress Notes Filed: 07/19/2024 10:55 Note Text: Patient is identified through a medication adherence outreach initiative based on pharmacy claims data from: [employer] Medication Adherence Category: Hypertension First Review Attribution Status: Correct Attribution Medication(s) Lisinopril 10 mg Medication Status per portal/Epic Reconcile Dispense: Filled late - Greater than 7 days after next fill date Date Filled (MM/DD): 07/19/24 due 07/11/24 Day Supply: 90 Medication Status per Profile Review: No issues per profile review Patient appropriate for outreach? No Reason patient not appropriate for outreach: per pharmacy, filled 07/19/24 for 90 days Antione Oswald CPhT Value Based Care Pharmacy Team [facility] 07-19-2024 Note Patient Outreach ( PO) MARKUS STRATTON ([id number]) 1955 [facility] Date Time Provider Department 07/19/24 CHRISTO WARREN During your visit today, we recorded the following information about you: Antione Oswald CPhT 07/19/2024 10:55 AM Signed Patient is identified through a medication adherence outreach initiative based on pharmacy claims data from: [employer] Medication Adherence Category: Hypertension First Review Attribution Status: Correct Attribution Medication(s) Lisinopril 10 mg Medication Status per portal/Epic Reconcile Dispense: Filled late - Greater than 7 days after next fill date Date Filled (MM/DD): 07/19/24 due 07/11/24 Day Supply: 90 Medication Status per Profile Review: No issues per profile review Patient appropriate for outreach? No Reason patient not appropriate for outreach: per pharmacy, filled 07/19/24 for 90 days Antione Oswald CPhT [facility] Team Allergies As of Date: 07/19/2024 (No Known Allergies) Date Reviewed: 05/01/2024 Reviewed by: Meron Cooper APRN.LANDING SUPPORT SPECIALIST - Fully Assessed Reason for Visit: Allied Health Visit [5] Cmt: Medication Adherence Outreach Prescriptions as of 07/19/2024 - benzonatate (TESSALON PERLE) 100 mg capsule Take 1 capsule by mouth three times a day as needed. - gabapentin (NEURONTIN) 300 mg capsule Take 1 pill in the evening and 2 pills at bedtime - lisinopril (ZESTRIL) 10 mg tablet Take 1 tablet by mouth once daily. - pramipexole (MIRAPEX) 0.5 mg tablet Take 1 tablet by mouth daily at bedtime. - aspirin 325 mg ORAL tablet Take 1 tablet by mouth once daily. Problem List As Of Date 07/19/2024 Noted Resolved ED (erectile dysfunction) [N52.9] 01/23/2011 Stress and adjustment reaction [F43.29] 04/07/2014 10/30/2017 Carpal tunnel syndrome, bilateral [G56.03] 08/06/2015 Dupuytren's contracture of both hands [M72.0] 08/07/2015 Essential hypertension [I10] 08/14/2015 Anxiety and depression [F41.9, F32.A] 08/14/2015 Non morbid obesity due to excess calories [E66.*08/14/2015 Pain in right wrist [M25.531] 09/13/2015 10/30/2017 Stiffness of left wrist joint [M25.632] 11/28/2015 10/30/2017 Trigger ring finger of left hand [M65.342] 08/26/2017 Neck pain [M54.2] 09/09/2017 10/30/2017 RLS (restless legs syndrome) [G25.81] 09/08/2023 Encounter Status:Closed by ANTIONE OSWALD on 07/19/24 [facility] 06-11-2024 Note HNO ID: [id number] Author: ELBA BARRON RN Service: ? Author Type: Registered Nurse Type: Progress Notes Filed: 06/11/2024 11:12 Note Text: CDM ENROLLMENT Provider Action / FYI: Patient identified by name and date of . Discussed care with patient. Patient B/P well controlled Taking lisinopril as prescribed Program Details Chronic Disease Management Status: Declined Patient Declined - Initial Effective Dates: unknown - 06/11/2024 Responsible Staff: Elba Barron RN Support and Services: None active Assessments No documentation this encounter Interventions No episode Elba Barron RN June 11, 2024 11:11 AM [facility] 06-11-2024 History of Present illness Narrative CDM ENROLLMENT Provider Action / FYI: Patient identified by name and date of . Discussed care with patient. Patient B/P well controlled Taking lisinopril as prescribed Program Details Chronic Disease Management Status: Declined Patient Declined - Initial Effective Dates: unknown - 06/11/2024 Responsible Staff: Elba Barron RN Support and Services: None active Assessments No documentation this encounter Interventions No episode Elba Barron RN June 11, 2024 11:11 AM documented in this encounter [facility] 06-11-2024 Note Patient Outreach ([facility]) MARKUS STRATTON ([id number]) 1955 [facility] Date Time Provider Department 06/11/24 ELBA BARRON During your visit today, we recorded the following information about you: Elba Barron RN 06/11/2024 11:12 AM Signed CDM ENROLLMENT Provider Action / FYI: Patient identified by name and date of . Discussed care with patient. Patient B/P well controlled Taking lisinopril as prescribed Program Details Chronic Disease Management Status: Declined Patient Declined - Initial Effective Dates: unknown - 06/11/2024 Responsible Staff: Elba Barron RN Support and Services: None active Assessments No documentation this encounter Interventions No episode Elba Barron RN June 11, 2024 11:11 AM Allergies As of Date: 06/11/2024 (No Known Allergies) Date Reviewed: 05/01/2024 Reviewed by: Meron Cooper APRN.LANDING SUPPORT SPECIALIST - Fully Assessed Prescriptions as of 06/11/2024 - benzonatate (TESSALON PERLE) 100 mg capsule Take 1 capsule by mouth three times a day as needed. - gabapentin (NEURONTIN) 300 mg capsule Take 1 pill in the evening and 2 pills at bedtime - lisinopril (ZESTRIL) 10 mg tablet Take 1 tablet by mouth once daily. - pramipexole (MIRAPEX) 0.5 mg tablet Take 1 tablet by mouth daily at bedtime. - aspirin 325 mg ORAL tablet Take 1 tablet by mouth once daily. Problem List As Of Date 06/11/2024 Noted Resolved ED (erectile dysfunction) [N52.9] 01/23/2011 Stress and adjustment reaction [F43.29] 04/07/2014 10/30/2017 Carpal tunnel syndrome, bilateral [G56.03] 08/06/2015 Dupuytren's contracture of both hands [M72.0] 08/07/2015 Essential hypertension [I10] 08/14/2015 Anxiety and depression [F41.9, F32.A] 08/14/2015 Non morbid obesity due to excess calories [E66.*08/14/2015 Pain in right wrist [M25.531] 09/13/2015 10/30/2017 Stiffness of left wrist joint [M25.632] 11/28/2015 10/30/2017 Trigger ring finger of left hand [M65.342] 08/26/2017 Neck pain [M54.2] 09/09/2017 10/30/2017 RLS (restless legs syndrome) [G25.81] 09/08/2023 Encounter Status:Closed by ELBA BARRON on 06/11/24 [facility] 05-10-2024 Miscellaneous Notes Patient notified. Given his parkinson's issues and bp, we are limited with cough meds. Almost all the cough meds are now over the counter. I would recommend sticking with delsym or mucinex dm Patient calling to request different cough medication. Patient was seen at [facility] on 05/01/24 for cough and azithromycin and benzonatate was ordered for him. Reports the benzonatate does not help his cough. Reports I cough and cough and cough. States he has tried several OTC medications- most recently Delsym, not effective. Taking Mucinex DM. No worsening of any other sx's. Reports cough is dry. Denies fever, chills, sinus pressure, chest pain, N/V/D, headache dizziness, wheezing or SOB. Uses [facility]. Please call patient with PCP response. [phone] Ignacia Bryant RN documented in this encounter [facility] 05-10-2024 Telephone encounter Note Patient notified. [facility] 05-10-2024 Telephone encounter Note Given his parkinson's issues and bp, we are limited with cough meds. Almost all the cough meds are now over the counter. I would recommend sticking with delsym or mucinex dm [facility] 05-10-2024 Telephone encounter Note Patient calling to request different cough medication. Patient was seen at [facility] on 05/01/24 for cough and azithromycin and benzonatate was ordered for him. Reports the benzonatate does not help his cough. Reports I cough and cough and cough. States he has tried several OTC medications- most recently Delsym, not effective. Taking Mucinex DM. No worsening of any other sx's. Reports cough is dry. Denies fever, chills, sinus pressure, chest pain, N/V/D, headache dizziness, wheezing or SOB. [facility]ses [facility]. Please call patient with PCP response. [phone] Ignacia Bryant RN [facility] 05-06-2024 Note HNO ID: [id number] Author: ALEXANDRA BRANTLEY MA Service: ? Author Type: Finisher [employer] Type: Progress Notes Filed: 05/06/2024 15:53 Note Text: POPULATION HEALTH NAVIGATION OUTREACH Action/FYI Spoke to patient. He declines scheduling Annual Wellness. He states he had a colonoscopy two months ago at [facility]. Found report in Scanned documents and updated Health Maintenance. PCP Follow up No Annual Wellness Yes Mammogram No Colonoscopy -Address if due this year *Yes A1C - Do not address if not due current month No Dilated Retinal Exam No KED No FLU No Reason for Outreach Care Gap/HCC or Scheduling Wellness Visits Care Gaps due: Medicare Annual Wellness Visit Colorectal Cancer Screening Patient Contacted: Spoke to patient/parent/or legal guardian Patient identified by name and : Yes Care Gap/HCC/Scheduling Wellness actions taken: Patient declined: Doesn't feel it's necessary Navigation Signature: Alexandra Brantley MA May 06, 2024 3:51 PM [facility] 05-06-2024 History of Present illness Narrative POPULATION HEALTH NAVIGATION OUTREACH Action/FYI Spoke to patient. He declines scheduling Annual Wellness. He states he had a colonoscopy two months ago at [facility]. Found report in Scanned documents and updated Health Maintenance. PCP Follow up No Annual Wellness Yes Mammogram No Colonoscopy -Address if due this year *Yes A1C - Do not address if not due current month No Dilated Retinal Exam No KED No FLU No Reason for Outreach Care Gap/HCC or Scheduling Wellness Visits Care Gaps due: Medicare Annual Wellness Visit Colorectal Cancer Screening Patient Contacted: Spoke to patient/parent/or legal guardian Patient identified by name and : Yes Care Gap/HCC/Scheduling Wellness actions taken: Patient declined: Doesn't feel it's necessary Navigation Signature: Alexandra Brantley MA May 06, 2024 3:51 PM documented in this encounter [facility] 05-06-2024 Note Patient Outreach ([facility]) MARKUS STRATTON ([id number]) 1955 M T Date Time Provider Department 05/06/24 ALEXANDRA BRANTLEY During your visit today, we recorded the following information about you: Alexandra Brantley MA 05/06/2024 3:53 PM Signed POPULATION HEALTH NAVIGATION OUTREACH Action/FYI Spoke to patient. He declines scheduling Annual Wellness. He states he had a colonoscopy two months ago at [facility]. Found report in Scanned documents and updated Health Maintenance. PCP Follow up No Annual Wellness Yes Mammogram No Colonoscopy -Address if due this year *Yes A1C - Do not address if not due current month No Dilated Retinal Exam No KED No FLU No Reason for Outreach Care Gap/HCC or Scheduling Wellness Visits Care Gaps due: Medicare Annual Wellness Visit Colorectal Cancer Screening Patient Contacted: Spoke to patient/parent/or legal guardian Patient identified by name and : Yes Care Gap/HCC/Scheduling Wellness actions taken: Patient declined: Doesn't feel it's necessary Navigation Signature: Alexandra Brantley MA May 06, 2024 3:51 PM Allergies As of Date: 05/06/2024 (No Known Allergies) Date Reviewed: 05/01/2024 Reviewed by: Meron Cooper APRN.LANDING SUPPORT SPECIALIST - Fully Assessed Reason for Visit: Population Health Navigation Outreach [3910] Cmt: [employer] High Risk Attempt #1 Prescriptions as of 05/06/2024 - benzonatate (TESSALON PERLE) 100 mg capsule Take 1 capsule by mouth three times a day as needed. - azithromycin (ZITHROMAX) 250 mg tablet Take 2 tablets by mouth once daily for 1 day, THEN 1 tablet once daily for 4 days. - gabapentin (NEURONTIN) 300 mg capsule Take 1 pill in the evening and 2 pills at bedtime - lisinopril (ZESTRIL) 10 mg tablet Take 1 tablet by mouth once daily. - pramipexole (MIRAPEX) 0.5 mg tablet Take 1 tablet by mouth daily at bedtime. - carbidopa-levodopa (SINEMET) 25-100 mg per tablet Take 2 tablets by mouth three times a day. - aspirin 325 mg ORAL tablet Take 1 tablet by mouth once daily. Problem List As Of Date 05/06/2024 Noted Resolved ED (erectile dysfunction) [N52.9] 01/23/2011 Stress and adjustment reaction [F43.29] 04/07/2014 10/30/2017 Carpal tunnel syndrome, bilateral [G56.03] 08/06/2015 Dupuytren's contracture of both hands [M72.0] 08/07/2015 Essential hypertension [I10] 08/14/2015 Anxiety and depression [F41.9, F32.A] 08/14/2015 Non morbid obesity due to excess calories [E66.*08/14/2015 Pain in right wrist [M25.531] 09/13/2015 10/30/2017 Stiffness of left wrist joint [M25.632] 11/28/2015 10/30/2017 Trigger ring finger of left hand [M65.342] 08/26/2017 Neck pain [M54.2] 09/09/2017 10/30/2017 RLS (restless legs syndrome) [G25.81] 09/08/2023 Encounter Status:Closed by ALEXANDRA BRANTLEY on 05/06/24 [facility] 05-01-2024 Note HNO ID: [id number] Author: MERON COOPER APRN.LANDING SUPPORT SPECIALIST Service: ? Author Type: Nurse Practitioner Type: Progress Notes Filed: 05/01/2024 15:10 Note Text: Markus Stratton is a 68 year old male who presents with Cough (Nasal congestion/drainage all x 1 1/2 weeks) 68 year old male present today for cough for 1.5 weeks. Patient states cough is dry. Patient denies any fevers, chills no sinus pressure. Patient denies any nausea or vomiting. Patient has no hx of respiratory disorders. Cough Pertinent negatives include no chills, no weight loss, no shortness of breath and no wheezing. PAST MEDICAL HISTORY Diagnosis Date Anxiety and depression Chronic insomnia HTN (hypertension) Obese Primary hypertension RLS (restless legs syndrome) ACTIVE PROBLEM LIST Ed (Erectile Dysfunction) Carpal Tunnel Syndrome, Bilateral Dupuytren's Contracture of Both Hands Essential Hypertension Anxiety and Depression Non Morbid Obesity Due to Excess Calories Trigger Ring Finger of Left Hand Rls (Restless Legs Syndrome) Current Outpatient Medications Medication Sig Dispense Refill gabapentin (NEURONTIN) 300 mg capsule Take 1 pill in the evening and 2 pills at bedtime 270 capsule 2 lisinopril (ZESTRIL) 10 mg tablet Take 1 tablet by mouth once daily. 90 tablet 3 pramipexole (MIRAPEX) 0.5 mg tablet Take 1 tablet by mouth daily at bedtime. 90 tablet 1 carbidopa-levodopa (SINEMET) 25-100 mg per tablet Take 2 tablets by mouth three times a day. 540 tablet 1 aspirin 325 mg ORAL tablet Take 1 tablet by mouth once daily. 0 benzonatate (TESSALON PERLE) 100 mg capsule Take 1 capsule by mouth three times a day as needed. 30 capsule 0 azithromycin (ZITHROMAX) 250 mg tablet Take 2 tablets by mouth once daily for 1 day, THEN 1 tablet once daily for 4 days. 6 tablet 0 No current facility-administered medications for this visit. Social History Tobacco Use Smoking status: Never Smokeless tobacco: Never Vaping Use Vaping status: Never Used Substance Use Topics Alcohol use: Not Currently Comment: occasionally Drug use: Never Alcohol Use: Not Currently (occasionally) Tobacco Use: Never FAMILY HISTORY Problem Relation Age of Onset No Known Problems Mother Leukemia Father No Known Problems Sister Parkinson?s Disease Brother No Known Problems Maternal Grandmother No Known Problems Maternal Grandfather No Known Problems Paternal Grandmother No Known Problems Paternal Grandfather Colon Cancer Daughter Review of Systems Constitutional: Negative for chills, diaphoresis, fever, malaise/fatigue and weight loss. Respiratory: Positive for cough. Negative for hemoptysis, sputum production, shortness of breath and wheezing. BP 142/92 Pulse 69 Temp 97.9 Resp 20 SpO2 97% Physical Exam Vitals and nursing note reviewed. Constitutional: General: He is not in acute distress. Appearance: Normal appearance. He is not ill-appearing, toxic-appearing or diaphoretic. HENT: Head: Normocephalic. Nose: Nose normal. Mouth/Throat: Mouth: Mucous membranes are moist. Cardiovascular: Rate and Rhythm: Normal rate and regular rhythm. Pulses: Normal pulses. Heart sounds: Normal heart sounds. Pulmonary: Effort: Pulmonary effort is normal. No respiratory distress. Breath sounds: Normal breath sounds. No stridor. No wheezing, rhonchi or rales. Chest: Chest wall: No tenderness. Musculoskeletal: Cervical back: Normal range of motion. No rigidity. Lymphadenopathy: Cervical: No cervical adenopathy. Skin: General: Skin is dry. Capillary Refill: Capillary refill takes less than 2 seconds. Neurological: Mental Status: He is alert. Procedures ASSESSMENT/PLAN: 1. Bronchitis - ICD9: 490, ICD10: J40 - BENZONATATE 100 MG CAPSULE - AZITHROMYCIN 250 MG TABLET If worsening of condition shortness or breath, fever chill please go to ER for evaluation. Meron Cooper APRN.LANDING SUPPORT SPECIALIST This note was partially generated using quickhuddle voice recognition system, and there may be some incorrect words, spellings, and punctuation that were not noted in checking the note before saving. [facility] 05-01-2024 History of Present illness Narrative Markus Stratton is a 68 year old male who presents with Cough (Nasal congestion/drainage all x 1 1/2 weeks) 68 year old male present today for cough for 1.5 weeks. Patient states cough is dry. Patient denies any fevers, chills no sinus pressure. Patient denies any nausea or vomiting. Patient has no hx of respiratory disorders. Cough Pertinent negatives include no chills, no weight loss, no shortness of breath and no wheezing. PAST MEDICAL HISTORY Diagnosis Date Anxiety and depression Chronic insomnia HTN (hypertension) Obese Primary hypertension RLS (restless legs syndrome) ACTIVE PROBLEM LIST Ed (Erectile Dysfunction) Carpal Tunnel Syndrome, Bilateral Dupuytren's Contracture of Both Hands Essential Hypertension Anxiety and Depression Non Morbid Obesity Due to Excess Calories Trigger Ring Finger of Left Hand Rls (Restless Legs Syndrome) Current Outpatient Medications Medication Sig Dispense Refill gabapentin (NEURONTIN) 300 mg capsule Take 1 pill in the evening and 2 pills at bedtime 270 capsule 2 lisinopril (ZESTRIL) 10 mg tablet Take 1 tablet by mouth once daily. 90 tablet 3 pramipexole (MIRAPEX) 0.5 mg tablet Take 1 tablet by mouth daily at bedtime. 90 tablet 1 carbidopa-levodopa (SINEMET) 25-100 mg per tablet Take 2 tablets by mouth three times a day. 540 tablet 1 aspirin 325 mg ORAL tablet Take 1 tablet by mouth once daily. 0 benzonatate (TESSALON PERLE) 100 mg capsule Take 1 capsule by mouth three times a day as needed. 30 capsule 0 azithromycin (ZITHROMAX) 250 mg tablet Take 2 tablets by mouth once daily for 1 day, THEN 1 tablet once daily for 4 days. 6 tablet 0 No current facility-administered medications for this visit. Social History Tobacco Use Smoking status: Never Smokeless tobacco: Never Vaping Use Vaping status: Never Used Substance Use Topics Alcohol use: Not Currently Comment: occasionally Drug use: Never Alcohol Use: Not Currently (occasionally) Tobacco Use: Never FAMILY HISTORY Problem Relation Age of Onset No Known Problems Mother Leukemia Father No Known Problems Sister Parkinson s Disease Brother No Known Problems Maternal Grandmother No Known Problems Maternal Grandfather No Known Problems Paternal Grandmother No Known Problems Paternal Grandfather Colon Cancer Daughter Review of Systems Constitutional: Negative for chills, diaphoresis, fever, malaise/fatigue and weight loss. Respiratory: Positive for cough. Negative for hemoptysis, sputum production, shortness of breath and wheezing. BP 142/92 Pulse 69 Temp 97.9 Resp 20 SpO2 97% Physical Exam Vitals and nursing note reviewed. Constitutional: General: He is not in acute distress. Appearance: Normal appearance. He is not ill-appearing, toxic-appearing or diaphoretic. HENT: Head: Normocephalic. Nose: Nose normal. Mouth/Throat: Mouth: Mucous membranes are moist. Cardiovascular: Rate and Rhythm: Normal rate and regular rhythm. Pulses: Normal pulses. Heart sounds: Normal heart sounds. Pulmonary: Effort: Pulmonary effort is normal. No respiratory distress. Breath sounds: Normal breath sounds. No stridor. No wheezing, rhonchi or rales. Chest: Chest wall: No tenderness. Musculoskeletal: Cervical back: Normal range of motion. No rigidity. Lymphadenopathy: Cervical: No cervical adenopathy. Skin: General: Skin is dry. Capillary Refill: Capillary refill takes less than 2 seconds. Neurological: Mental Status: He is alert. Procedures ASSESSMENT/PLAN: 1. Bronchitis - ICD9: 490, ICD10: J40 - BENZONATATE 100 MG CAPSULE - AZITHROMYCIN 250 MG TABLET If worsening of condition shortness or breath, fever chill please go to ER for evaluation. Meron Cooper APRN.CNP This note was partially generated using quickhuddle voice recognition system, and there may be some incorrect words, spellings, and punctuation that were not noted in checking the note before saving. documented in this encounter [facility] 05-01-2024 Instructions Meron Cooper APRN.CNP - 05/01/2024 3:07 PM EST Body aches/Pain/Fever Acetaminophen/Tylenol not to exceed 3000mg in a 24 hour period and or Ibuprofen/Motrin 600mg every 6 hours not to exceed 2400mg in a 24 hour period if no history of gastrointestinal bleeding or ulcers for pain/discomfort of fever. Sore throat: Warm beverages with honey, salt water gargles, Chloraseptic spray, throat lozenges. Congestion: Nasal sprays like Flonase or normal saline can also help. Coricidin for patient with Hypertension (high blood pressure) If any worsening of condition please be re-evaluated if having shortness of breath or not able to keep down fluids please go to the emergency room. documented in this encounter [facility] 04-19-2024 Instructions Nikki Javier MD - 04/19/2024 11:30 AM EST 1. With lack of benefit to the current levodopa and lack of clear need, lets try coming off of it - take 1 pill twice a day for a week then stop. If you feel worse you can go back to taking whatever dose was helping, and try timing it at three times a day around 7 AM, 12 PM, 5 PM. 2. Wait til you are off the carbidopa/levodopa, then let's change pramipexole over to gabapentin. I gave you 300 mg gabapentin - start with 1 pill at 9 PM, if no better after a few days go to 2 pills at 9 PM, and if still no better after a few days go to 1 pill at 8 PM and 2 pills 10 PM. Watch out for sleepiness with it. At the same time, come off pramipexole - take 1/2 pill for a week then stop. documented in this encounter [facility] 04-19-2024 Note HNO ID: [id number] Author: NIKKI JAVIER MD Service: ? Author Type: Physician Type: Progress Notes Filed: 04/19/2024 13:14 Note Text: FOLLOW UP NOTE Subjective Markus Stratton is a 68 year old male who presents for follow up. CC: PD, RLS Summary of prior care: 10/2023 right-handed male with a history of RLS and family history of PD who presents for evaluation of possible parkinsonism. 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 Presentation c/w PD. Placed referral to PT and OT for PD therapy. Start levodopa titrate to 200 mg TID, discussed side effects and proper timing. Gave info on PD research at [facility]. HPI Current Issues - No clear benefit to levodopa - No side effects - Takes first dose around 3404-6901, second dose around 7432-8676 Generally does not take the mid-day dose - Didn't do therapy, not sure he needs to right now - Feels like his thoughts are slow coming out, hard to come up with things - Having RLS at night, lasts 30-45 minutes before he can get to sleep, often has to get up and walk around. Starts around 2100, bedtime around 2300, takes pramipexole around 2100 Current Outpatient Medications Medication Sig Dispense Refill lisinopril (ZESTRIL) 10 mg tablet Take 1 tablet by mouth once daily. 90 tablet 3 pramipexole (MIRAPEX) 0.5 mg tablet Take 1 tablet by mouth daily at bedtime. 90 tablet 1 carbidopa-levodopa (SINEMET) 25-100 mg per tablet Take 2 tablets by mouth three times a day. 540 tablet 1 aspirin 325 mg ORAL tablet Take 1 tablet by mouth once daily. 0 gabapentin (NEURONTIN) 300 mg capsule Take 1 pill in the evening and 2 pills at bedtime 270 capsule 2 No current facility-administered medications for this visit. Objective OBJECTIVE 04/19/24 1057 BP: 155/98 Pulse: 62 Temp: 36.1 ?C (97 ?F) TempSrc: Tympanic SpO2: 97% Weight: 94 kg (207 lb 5.5 oz) General: General Appearance: Well appearing, alert, in no acute distress, well-hydrated, well nourished. Head: Normocephalic Neck: Supple Heart: RRR Neurologic Exam: Mental Status: He is alert. He is fully oriented. Attention is mildly impaired. Memory is intact. Language shows normal comprehension and fluency. Affect is appropriate. Cranial Nerves: Extraocular movements show full and smooth pursuits. No nystagmus. Visual carpio are full to confrontation. Facial sensation is intact. Facial activation is symmetric. Hearing is intact to conversation. There is mild hypomimia. There is mild hypophonia. There is no dysarthria. Shoulder shrug is slightly delayed on left. Motor: Muscle bulk is normal. Trace L>R tremor more HF / LA subtle. Mod L>R bradykinesia. No rigidity. Last levodopa 200 mg at 0700, exam 1135 Coordination: Finger to nose is smooth without ataxia. Gait/station: Normal mahi, narrow base, mildly decreased arm swing on L>R, mildly stooped DATA REVIEW Actual films/image/tracing reviewed and summarized as follows: n/a Old records reviewed and summarized as follows: n/a Assessment/Plan ASSESSMENT AND PLAN: Markus Stratton is a 68 year old right-handed male with a history of RLS and family history of PD who presents for evaluation of possible parkinsonism. 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 1. PD - No clear benefit to levodopa 200 mg BID - Currently not overly bothered by symptoms - Decided to taper off levodopa to see if providing any benefit. If feels worse without it can return to helpful dose - Encouraged exercise 2. RLS - Sounds like getting some augmentation and incomplete benefit with pramipexole - Will change pramipexole to gabapentin, titrate up to 900 mg, discussed timing and side effects Follow-up: 6 months Risks AND Side Effects of Newly Prescribed Medication, Discussed with Patient: YES PDMP website checked and validated. All prescriptions have been APPROPRIATELY filled. No suspicious activity was identified. 04/19/2024 by MD Nkiki Harrell MD [facility] Neurology [facility] 04-19-2024 History of Present illness Narrative FOLLOW UP NOTE Subjective Markus Stratton is a 68 year old male who presents for follow up. CC: PD, RLS Summary of prior care: 10/2023 right-handed male with a history of RLS and family history of PD who presents for evaluation of possible parkinsonism. 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 Presentation c/w PD. Placed referral to PT and OT for PD therapy. Start levodopa titrate to 200 mg TID, discussed side effects and proper timing. Gave info on PD research at [facility]. HPI Current Issues - No clear benefit to levodopa - No side effects - Takes first dose around [id number], second dose around [id number] Generally does not take the mid-day dose - Didn't do therapy, not sure he needs to right now - Feels like his thoughts are slow coming out, hard to come up with things - Having RLS at night, lasts 30-45 minutes before he can get to sleep, often has to get up and walk around. Starts around 2100, bedtime around 2300, takes pramipexole around 2100 Current Outpatient Medications Medication Sig Dispense Refill lisinopril (ZESTRIL) 10 mg tablet Take 1 tablet by mouth once daily. 90 tablet 3 pramipexole (MIRAPEX) 0.5 mg tablet Take 1 tablet by mouth daily at bedtime. 90 tablet 1 carbidopa-levodopa (SINEMET) 25-100 mg per tablet Take 2 tablets by mouth three times a day. 540 tablet 1 aspirin 325 mg ORAL tablet Take 1 tablet by mouth once daily. 0 gabapentin (NEURONTIN) 300 mg capsule Take 1 pill in the evening and 2 pills at bedtime 270 capsule 2 No current facility-administered medications for this visit. Objective OBJECTIVE 04/19/24 1057 BP: 155/98 Pulse: 62 Temp: 36.1 C (97 F) TempSrc: Tympanic SpO2: 97% Weight: 94 kg (207 lb 5.5 oz) General: General Appearance: Well appearing, alert, in no acute distress, well-hydrated, well nourished. Head: Normocephalic Neck: Supple Heart: RRR Neurologic Exam: Mental Status: He is alert. He is fully oriented. Attention is mildly impaired. Memory is intact. Language shows normal comprehension and fluency. Affect is appropriate. Cranial Nerves: Extraocular movements show full and smooth pursuits. No nystagmus. Visual carpio are full to confrontation. Facial sensation is intact. Facial activation is symmetric. Hearing is intact to conversation. There is mild hypomimia. There is mild hypophonia. There is no dysarthria. Shoulder shrug is slightly delayed on left. Motor: Muscle bulk is normal. Trace L>R tremor more HF / LA subtle. Mod L>R bradykinesia. No rigidity. Last levodopa 200 mg at 0700, exam 1135 Coordination: Finger to nose is smooth without ataxia. Gait/station: Normal mahi, narrow base, mildly decreased arm swing on L>R, mildly stooped DATA REVIEW Actual films/image/tracing reviewed and summarized as follows: n/a Old records reviewed and summarized as follows: n/a Assessment/Plan ASSESSMENT & PLAN: Markus Stratton is a 68 year old right-handed male with a history of RLS and family history of PD who presents for evaluation of possible parkinsonism. 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 1. PD - No clear benefit to levodopa 200 mg BID - Currently not overly bothered by symptoms - Decided to taper off levodopa to see if providing any benefit. If feels worse without it can return to helpful dose - Encouraged exercise 2. RLS - Sounds like getting some augmentation and incomplete benefit with pramipexole - Will change pramipexole to gabapentin, titrate up to 900 mg, discussed timing and side effects Follow-up: 6 months Risks & Side Effects of Newly Prescribed Medication, Discussed with Patient: YES PDMP website checked and validated. All prescriptions have been APPROPRIATELY filled. No suspicious activity was identified. 04/19/2024 by MD Nikki Harrell MD [facility] Neurology documented in this encounter [facility] 04-12-2024 History of Present illness Narrative Patient presents with: 6 Month Exam HPI: Patient presents today for office visit for routine 6 month follow up. HTN: Continues on Lisinopril 5 mg daily. Never misses doses. Was advised to monitor BP at home. He did not start doing this. No readings with him today. Denies chest pain and shortness of breath Denies headaches and dizziness Denies palpitations and syncope No edema Follows with Neuro. His total psa is improving. Can repeat in six months to a year. He is seeing neurology They are thinking he may have Parkinson's. Latest Ref Rng 03/29/2024 WBC 3.70 - 11.00 k/uL 10.61 RBC 4.20 - 6.00 m/uL 5.34 Hemoglobin 13.0 - 17.0 g/dL 15.1 Hematocrit 39.0 - 51.0 % 47.2 MCV 80.0 - 100.0 fL 88.4 MCH 26.0 - 34.0 pg 28.3 MCHC 30.5 - 36.0 g/dL 32.0 RDW-CV 11.5 - 15.0 % 13.4 Platelet Count 150 - 400 k/uL 261 MPV 9.0 - 12.7 fL 10.6 Neut% % 68.3 Abs Neut (ANC) 1.45 - 7.50 k/uL 7.24 Lymph% % 22.7 Abs Lymph 1.00 - 4.00 k/uL 2.41 Marlboro% % 6.4 Abs Marlboro <0.87 k/uL 0.68 Eosin% % 1.2 Abs Eosin <0.46 k/uL 0.13 Baso% % 0.8 Abs Baso <0.11 k/uL 0.09 Immature Gran % % 0.6 IMMATURE GRANS (ABS) <0.10 k/uL 0.06 NRBC /100 WBC 0.0 Absolute nRBC <0.01 k/uL <0.01 DTYPE Auto PSA <2.60 ng/mL 2.51 PSA, Percent Free % 12 MEDICATIONS: Current Outpatient Medications Medication Sig pramipexole (MIRAPEX) 0.5 mg tablet Take 1 tablet by mouth daily at bedtime. carbidopa-levodopa (SINEMET) 25-100 mg per tablet Take 2 tablets by mouth three times a day. lisinopril (ZESTRIL) 5 mg tablet Take 1 tablet by mouth once daily. aspirin 325 mg ORAL tablet Take 1 tablet by mouth once daily. No current facility-administered medications for this visit. ALLERGIES: ALLERGIES No Known Allergies PAST MEDICAL HISTORY Diagnosis Date Anxiety and depression Chronic insomnia HTN (hypertension) Obese Primary hypertension RLS (restless legs syndrome) PAST SURGICAL HISTORY Procedure Laterality Date APPENDECTOMY CARPAL TUNNEL Right 08/30/2015 COLONOSCOPY 06/2017 COLONOSCOPY SCREENING 07/14/2017 Dr. Mohan @ [facility]; Ascending colon polyp x1, biopsy- tubular adenoma; recommended repeat in 3 yrs TONSILLECTOMY HX VASECTOMY UNI/BI SPX W/POSTOP SEMEN EXAMS FAMILY HISTORY Problem Relation Age of Onset No Known Problems Mother Leukemia Father No Known Problems Sister Parkinson s Disease Brother No Known Problems Maternal Grandmother No Known Problems Maternal Grandfather No Known Problems Paternal Grandmother No Known Problems Paternal Grandfather Colon Cancer Daughter Social History Tobacco Use Smoking status: Never Smokeless tobacco: Never Vaping Use Vaping status: Never Used Substance Use Topics Alcohol use: Not Currently Comment: occasionally Drug use: Never Reviewed current medications, allergies, past medical history, surgical history, family history and social history today. REVIEW OF SYSTEMS All other reviewed and negative other than HPI. HEALTH MAINTENANCE: Reviewed health maintenance issues today and recommended the following in detail. DTaP,Tdap,Td Vaccine(1 - Tdap) Never done Shingrix Vaccine(1 of 2) Never done Pneumococcal Vaccine: 50+(1 of 1 - PCV) Never done BP Controlled (<130/80) due on 10/30/2018 Colorectal Cancer Screening done Influenza Vaccine(1) due on 11/23/2023 Covid-19 Vaccine(4 - 2023- season) due on 11/23/2023 Advance Directive Discussion-daughter, Anny Clemens. VITALS: BP 158/86 Pulse 67 Ht 162.6 cm (5' 4) Wt 93.4 kg (206 lb) BMI 35.36 kg/m Last 4 Encounter Wt Readings: Date: Wt: 11/20/2023 91.7 kg (202 lb 2.6 oz) 11/17/2023 92 kg (202 lb 14.9 oz) 11/11/2023 93.8 kg (206 lb 12.7 oz) 10/06/2023 91.6 kg (202 lb) PHYSICAL EXAMINATION: General appearance: Well appearing, alert, in no acute distress, well-hydrated, well nourished. Skin: Skin color, texture, turgor normal, no suspicious rashes or lesions Head: Normocephalic, no masses, lesions, tenderness or abnormalities Eyes: Anicteric sclera. Pupils are equally round and reactive to light. Extraocular movements are intact. Ears: External ears normal, canals clear Lungs: Lungs clear to auscultation. No wheezing, rhonchi, rales Heart: RRR without murmur, gallop, or rubs. No ectopy Abdomen: Normal abdominal exam, Abdomen soft, non-tender. Bowel sounds normal. No masses, organomegaly Extremities: No deformities, edema, skin discoloration, clubbing or cyanosis. Good capillary refill. ASSESSMENT/PLAN: 1. Essential hypertension - ICD9: 401.9, ICD10: I10 (primary diagnosis) - Uncontrolled - Increase lisinopril to 10 mg a day. - Recommend home blood pressure monitoring, to bring results to next visit - Encouraged sodium restriction, DASH or Mediterranean diet - Recommend regular aerobic exercise - LISINOPRIL 10 MG TABLET - COMPREHENSIVE METABOLIC PANEL- labs before he comes back. - LIPID PANEL BASIC 2. Anxiety and depression - ICD9: 300.00, 311, ICD10: F41.9, F32.A - stable. 3. Parkinson's disease, unspecified whether dyskinesia present, unspecified whether manifestations fluctuate (HCC) - ICD9: 332.0, ICD10: G20.A1 - per neurology 4. History of colonic polyps - ICD9: V12.72, ICD10: Z86.0100 - stable. Was told to recheck in one year. Christo Warren MD RTO in one month documented in this encounter [facility] 04-12-2024 Note HNO ID: [id number] Author: CHRISTO WARREN MD Service: ? Author Type: Physician Type: Progress Notes Filed: 04/12/2024 09:01 Note Text: Patient presents with: 6 Month Exam HPI: Patient presents today for office visit for routine 6 month follow up. HTN: Continues on Lisinopril 5 mg daily. Never misses doses. Was advised to monitor BP at home. He did not start doing this. No readings with him today. Denies chest pain and shortness of breath Denies headaches and dizziness Denies palpitations and syncope No edema Follows with Neuro. His total psa is improving. Can repeat in six months to a year. He is seeing neurology They are thinking he may have Parkinson's. Latest Ref Rng 03/29/2024 WBC 3.70 - 11.00 k/uL 10.61 RBC 4.20 - 6.00 m/uL 5.34 Hemoglobin 13.0 - 17.0 g/dL 15.1 Hematocrit 39.0 - 51.0 % 47.2 MCV 80.0 - 100.0 fL 88.4 MCH 26.0 - 34.0 pg 28.3 MCHC 30.5 - 36.0 g/dL 32.0 RDW-CV 11.5 - 15.0 % 13.4 Platelet Count 150 - 400 k/uL 261 MPV 9.0 - 12.7 fL 10.6 Neut% % 68.3 Abs Neut (ANC) 1.45 - 7.50 k/uL 7.24 Lymph% % 22.7 Abs Lymph 1.00 - 4.00 k/uL 2.41 Marlboro% % 6.4 Abs [place] <0.87 k/uL 0.68 Eosin% % 1.2 Abs Eosin <0.46 k/uL 0.13 Baso% % 0.8 Abs Baso <0.11 k/uL 0.09 Immature Gran % % 0.6 IMMATURE GRANS (ABS) <0.10 k/uL 0.06 NRBC /100 WBC 0.0 Absolute nRBC <0.01 k/uL <0.01 DTYPE Auto PSA <2.60 ng/mL 2.51 PSA, Percent Free % 12 MEDICATIONS: Current Outpatient Medications Medication Sig pramipexole (MIRAPEX) 0.5 mg tablet Take 1 tablet by mouth daily at bedtime. carbidopa-levodopa (SINEMET) 25-100 mg per tablet Take 2 tablets by mouth three times a day. lisinopril (ZESTRIL) 5 mg tablet Take 1 tablet by mouth once daily. aspirin 325 mg ORAL tablet Take 1 tablet by mouth once daily. No current facility-administered medications for this visit. ALLERGIES: ALLERGIES No Known Allergies PAST MEDICAL HISTORY Diagnosis Date Anxiety and depression Chronic insomnia HTN (hypertension) Obese Primary hypertension RLS (restless legs syndrome) PAST SURGICAL HISTORY Procedure Laterality Date APPENDECTOMY CARPAL TUNNEL Right 08/30/2015 COLONOSCOPY 06/2017 COLONOSCOPY SCREENING 07/14/2017 Dr. Mohan @ [facility]; Ascending colon polyp x1, biopsy- tubular adenoma; recommended repeat in 3 yrs TONSILLECTOMY HX VASECTOMY UNI/BI SPX W/POSTOP SEMEN EXAMS FAMILY HISTORY Problem Relation Age of Onset No Known Problems Mother Leukemia Father No Known Problems Sister Parkinson?s Disease Brother No Known Problems Maternal Grandmother No Known Problems Maternal Grandfather No Known Problems Paternal Grandmother No Known Problems Paternal Grandfather Colon Cancer Daughter Social History Tobacco Use Smoking status: Never Smokeless tobacco: Never Vaping Use Vaping status: Never Used Substance Use Topics Alcohol use: Not Currently Comment: occasionally Drug use: Never Reviewed current medications, allergies, past medical history, surgical history, family history and social history today. REVIEW OF SYSTEMS All other reviewed and negative other than HPI. HEALTH MAINTENANCE: Reviewed health maintenance issues today and recommended the following in detail. DTaP,Tdap,Td Vaccine(1 - Tdap) Never done Shingrix Vaccine(1 of 2) Never done Pneumococcal Vaccine: 50+(1 of 1 - PCV) Never done BP Controlled (<130/80) due on 10/30/2018 Colorectal Cancer Screening done Influenza Vaccine(1) due on 11/23/2023 Covid-19 Vaccine( season) due on 11/23/2023 Advance Directive Discussion-daughter, Anny Clemens. VITALS: BP 158/86 Pulse 67 Ht 162.6 cm (5' 4) Wt 93.4 kg (206 lb) BMI 35.36 kg/m? Last 4 Encounter Wt Readings: Date: Wt: 11/20/2023 91.7 kg (202 lb 2.6 oz) 11/17/2023 92 kg (202 lb 14.9 oz) 11/11/2023 93.8 kg (206 lb 12.7 oz) 10/06/2023 91.6 kg (202 lb) PHYSICAL EXAMINATION: General appearance: Well appearing, alert, in no acute distress, well-hydrated, well nourished. Skin: Skin color, texture, turgor normal, no suspicious rashes or lesions Head: Normocephalic, no masses, lesions, tenderness or abnormalities Eyes: Anicteric sclera. Pupils are equally round and reactive to light. Extraocular movements are intact. Ears: External ears normal, canals clear Lungs: Lungs clear to auscultation. No wheezing, rhonchi, rales Heart: RRR without murmur, gallop, or rubs. No ectopy Abdomen: Normal abdominal exam, Abdomen soft, non-tender. Bowel sounds normal. No masses, organomegaly Extremities: No deformities, edema, skin discoloration, clubbing or cyanosis. Good capillary refill. ASSESSMENT/PLAN: 1. Essential hypertension - ICD9: 401.9, ICD10: I10 (primary diagnosis) - Uncontrolled - Increase lisinopril to 10 mg a day. - Recommend home blood pressure monitoring, to bring results to next visit - Encouraged sodium restriction, DASH or Mediterranean diet - Recommend regular aerobic exer (more content not included)... [facility] 03-10-2024 Telephone encounter Note Prescription Refill Information The patient has been identified by name and date of : Yes Caregiver verified no other encounters exist for this prescription request: Yes Caregiver confirmed with patient/requestor that no other refills are due, in the near future, with this provider at this time: Yes NOTE: patient is requesting this be filled as 90 supply if possible The last office visit in the department: 12/01/2023 Does the patient have a future office visit with this provider/department: Yes Requested Prescriptions Pending Prescriptions Disp Refills pramipexole (MIRAPEX) 0.5 mg tablet 30 tablet 5 Sig: Take 1 tablet by mouth daily at bedtime. Jacinda Moy March 10, 2024 11:38 AM [facility] 03-10-2024 Miscellaneous Notes Prescription Refill Information The patient has been identified by name and date of : Yes Caregiver verified no other encounters exist for this prescription request: Yes Caregiver confirmed with patient/requestor that no other refills are due, in the near future, with this provider at this time: Yes NOTE: patient is requesting this be filled as 90 supply if possible The last office visit in the department: 12/01/2023 Does the patient have a future office visit with this provider/department: Yes Requested Prescriptions Pending Prescriptions Disp Refills pramipexole (MIRAPEX) 0.5 mg tablet 30 tablet 5 Sig: Take 1 tablet by mouth daily at bedtime. Jacinda Moy March 10, 2024 11:38 AM documented in this encounter [facility] 02-13-2024 Note [facility] Medical Records Department [address] [place] [address] History Physical Exam 02/13/24 0840 MR#: [id number] Acct: [id number] Name: MARKUS STRATTON Rep #: [id number] : 1955 68 From: Mohan Adhikari MD PCP: Dr. Christo Warren MD Status:[facility] Location: [place] [address] HPI - General General Date of Service: 02/13/24 HPI Narrative MARKUS STRATTON, is a 68 M who presents for surveillance colonoscopy. He confirms his preappointment questionnaire that he has not experienced any change in her bowel habits-and particularly denies any notice of blood. He confirms a history of colon polyps with his last scope in [address] Mohan. He also shares about the family history of colon cancer diagnosed in his daughter at the age of 19. He describes how she required a segmental colectomy but ever since that time has had no further difficulties from her disease process. He does share that she routinely completes surveillance colonoscopies. Lastly he confirms that his prep was completed successfully and that his output is now clear. [facility] Medical History (Updated 02/13/24 @ 08:[address] Mohan Adhikari MD) Non-smoker Family history of malignant neoplasm of colon in relative diagnosed when younger than 50 years of age Parkinson disease Home Medications ???Medication ???Instructions ???Recorded ???Last Taken ???Type atorvastatin 20 mg tablet (Lipitor) 20 mg PO QHS 01/05/24 02/12/24 History carbidopa 10 mg-levodopa 100 mg 1 tab PO TID 01/05/24 02/12/24 History tablet pramipexole 0.5 mg tablet 0.5 mg PO QHS 01/05/24 02/12/24 History Allergy/AdvReac Type Severity Reaction Status Date / Time No Known Allergies Allergy Verified 02/13/24 07:45 Family History (Updated 01/05/24 @ 11:15 by Jessica Abebe) Daughter Colon cancer, Onset Age: 19 At age 17yrs, Treated at [facility] and [facility] Surgical History (Updated 02/12/24 @ 09:28 by Kelly Argueta) History of carpal tunnel surgery of right wrist History of carpal tunnel surgery of left wrist History of colonoscopy Social History (Updated 01/05/24 @ 11:16 by Jessica Abebe) current occupational status: employed current occupation: [employer] Smoking Status: Never smoker substance use type: does not use Past Medical/Surgical History Planned Operation Planned Operative Procedure(s): CSCOPE OA S.O.S: No Previous Hospitalizations/Surgeries HX Hospitalizations: No HX of Surgeries: bilat carpal tunnel colonoscopy Any Problems With Anesthesia: No You/Your Family Experience Fever (Hyperthermia) With Anes: No Cholinesterase deficiency: No Cardiovascular Hx Chest Pain within Last 2 months: No Hx of Irregular Heartbeat and/or Afib: No Hx Heart Attack: No Hx Congestive Heart Failure: No Hx Rheumatic Fever: No Hx Hypertension: No Hx Internal Defibrillator: No Hx Pacemaker: No Hx Cardiac Catheterization: No Hx Cardiac Surgery/Stents/Etc.: No Hx Stress Test: No Hx Pain in Legs when Walking/Leg Cramps: No Respiratory Chronic Cough: No HX of Shortness of Breath: No Hoarseness: No Hx Chronic Obstructive Pulmonary Disease (COPD): No Hx Asthma: No Hx Emphysema: No Hx Sleep Apnea: No CPAP: No Hx Respiratory Tract Infection/Cold (presently): No Do You Snore Loudly (louder than talking or can be heard): No Do You Often Feel Tired/ Fatigued/ Sleepy Dring Daytime?: No Has Anyone Observed You Stop Breathing During Sleep?: No Result (for STOP score): Negative Hx Smoking: No Smoking Status: Never smoker Gastrointestinal Hx Gastrointestinal Disorders: No Hx Gastrointestinal Bleed: No Hx Ulcer: No Hx Hiatal Hernia: No Difficulty Chewing/Swallowing: No Special diet followed at home: No Hx Unplanned Weight Loss of 20#: No HX Unplanned Weight Gain of 20#: No Neurological Hx Seizures: No HX Syncope/Blackout Spells/Unconsciousness: No Hx Transient Ischemic Attacks (TIA): No Hx Multiple Sclerosis: No Hx Parkinson's Disease: No Hx Head/Neck Injury: No Hx Headaches: No Hx Back Injury/Pain: No Recent Onset of Speech Difficulty: No Restless Legs: No Does patient have nerve stimulator: No Blood Disorder Hx Leukemia: No Bleeding Tendencies: No Hx Deep Vein Thrombosis: No Hx High Cholesterol: No Blood Transmitted Disease: No Hx Hepatitis: No Hx Cirrhosis: No Hx Anemia: No Hx Blood Disorders: No Reproduction : No Genitourinary Hx Renal Disease: No Musculoskeletal Hx Arthritis: No Hx Rheumatoid Arthritis: No Hx Gout: No Recent Onset of an Orthopedic Problem: No Endocrine Hx Diabetes: No Thyroid Disease: No Hx Steroid Therapy: No Psycho/Social Hx Substance Use: No Hx Alcohol Use: No Hx Anxiety: No Hx Depression: No Mental Illness: No Hx Dementia: No Miscellaneous Hx Cancer: No Recent Exposure to Contagious Disease: No Hx (more content not included)... [facility] 02-09-2024 Telephone encounter Note patient is scheduled at [facility] 02-13-2024 for his colonoscopy. Declined to schedule with [facility] Work Phone: 02-09-2024 Miscellaneous Notes patient is scheduled at [facility] 02-13-2024 for his colonoscopy. Declined to schedule with [facility] documented in this encounter [facility] 01-15-2024 Telephone encounter Note Pt notified that lab orders have been faxed to [facility] Anna Page MA January 15, 2024 11:47 AM [facility] 01-15-2024 Miscellaneous Notes Pt notified that lab orders have been faxed to [facility] Anna Page MA January 15, 2024 11:47 AM done Carlitos is calling Christo Warren MD today requesting order for routine blood work and PSA Please advise and return his call [phone] documented in this encounter [facility] 01-15-2024 Telephone encounter Note done [facility] 01-15-2024 Telephone encounter Note Carlitos is calling Christo Warren MD today requesting order for routine blood work and PSA Please advise and return his call [phone] [facility] 12-01-2023 Telephone encounter Note Spoke with patient. Given message from provider's office. Patient verbalizes understanding. Kobi Dejesus RN [facility] 12-01-2023 Miscellaneous Notes Spoke with patient. Given message from provider's office. Patient verbalizes understanding. Kobi Dejesus RN Left message to call office. 12/01/2023 1:31 PM Please schedule patient's 6 month follow up with Dr. Warren which is due in March 2024. No medication changes. Follow-up with PCP as scheduled Rachel Martins APRN.CNP BP Lara Serial, Digital BP Readings, Taken 2 Minutes Apart, Average Readings: 138/83 Pulse: 64 Reason for blood pressure check - Last BP elevated Patient is: Taking medication as prescribed Yes Took medication today Yes If no, date medication last taken n/a Experiencing side effects No Recommendations Continue taking medications as prescribed, Follow recommended diet instructions, Continue recommended activity, and Avoid excessive salt Follow-up No Pt has been identified by name and birthdate: Yes Allergies reviewed: Yes Latex allergy: no. Medication - prescribed and OTC reviewed and updated: Yes Do you need any prescription refills prior to your next visit: No Health Maintenance: Reviewed and up to date documented in this encounter [facility] 12-01-2023 Telephone encounter Note Left message to call office. 12/01/2023 1:31 PM Please schedule patient's 6 month follow up with Dr. Warren which is due in March 2024. [facility] 12-01-2023 Telephone encounter Note No medication changes. Follow-up with PCP as scheduled Rachel Martins APRN.CNP [facility] 12-01-2023 Telephone encounter Note BP Lara Serial, Digital BP Readings, Taken 2 Minutes Apart, Average Readings: 138/83 Pulse: 64 Reason for blood pressure check - Last BP elevated Patient is: Taking medication as prescribed Yes Took medication today Yes If no, date medication last taken n/a Experiencing side effects No Recommendations Continue taking medications as prescribed, Follow recommended diet instructions, Continue recommended activity, and Avoid excessive salt Follow-up No Pt has been identified by name and birthdate: Yes Allergies reviewed: Yes Latex allergy: no. Medication - prescribed and OTC reviewed and updated: Yes Do you need any prescription refills prior to your next visit: No Health Maintenance: Reviewed and up to date [facility] 12-01-2023 Note HNO ID: [id number] Author: IAM HUMPHRIES MA Service: ? Author Type: [employer] Type: Progress Notes Filed: 12/01/2023 11:43 Note Text: BP Lara Serial, Digital BP Readings, Taken 2 Minutes Apart, Average Readings: 138/83 Pulse: 64 Reason for blood pressure check - Last BP elevated Patient is: Taking medication as prescribed Yes Took medication today Yes If no, date medication last taken n/a Experiencing side effects No Recommendations Continue taking medications as prescribed, Follow recommended diet instructions, Continue recommended activity, and Avoid excessive salt Follow-up No Pt has been identified by name and birthdate: Yes Allergies reviewed: Yes Latex allergy: no. Medication - prescribed and OTC reviewed and updated: Yes Do you need any prescription refills prior to your next visit: No Health Maintenance: Reviewed and up to date [facility] 12-01-2023 History of Present illness Narrative BP Lara Serial, Digital BP Readings, Taken 2 Minutes Apart, Average Readings: 138/83 Pulse: 64 Reason for blood pressure check - Last BP elevated Patient is: Taking medication as prescribed Yes Took medication today Yes If no, date medication last taken n/a Experiencing side effects No Recommendations Continue taking medications as prescribed, Follow recommended diet instructions, Continue recommended activity, and Avoid excessive salt Follow-up No Pt has been identified by name and birthdate: Yes Allergies reviewed: Yes Latex allergy: no. Medication - prescribed and OTC reviewed and updated: Yes Do you need any prescription refills prior to your next visit: No Health Maintenance: Reviewed and up to date documented in this encounter [facility] 11-20-2023 Instructions Rachel Martins, [employer]LECTRONIC TESTER.[facility] - 11/20/2023 12:15 PM EDT CARE ADVICE FOR COUGH: Drink warm fluids. Inhale warm mist. (Reason: both relax the airway and loosen up the phlegm) Suck on cough drops or hard candy to coat the irritated throat. OTC COUGH DROPS: Cough drops can help a lot, especially for mild coughs. They reduce coughing by soothing your irritated throat and removing that tickle sensation in the back of the throat. Cough drops also have the advantage of portability - you can carry them with you. HOME REMEDY - HARD CANDY: Hard candy works just as well as medicine-flavored OTC cough drops. People who have diabetes should use sugar-free candy. HOME REMEDY - HONEY: This old home remedy has been shown to help decrease coughing at night. The adult dosage is 2 teaspoons (10 ml) at bedtime. Honey should not be given to infants under one year of age. HUMIDIFIER: If the air is dry, use a humidifier in the bedroom. (Reason: dry air makes coughs worse) AVOID TOBACCO SMOKE: Smoking or being exposed to smoke makes coughs much worse. SORE THROAT For relief of sore throat: Sip warm chicken broth or apple juice Suck on hard candy or a throat lozenge (OTC) Gargle with warm salt water four times a day To make salt water, put 1/2 teaspoon of salt in 8 oz (240 ml) of warm water. Avoid cigarette smoke CALL BACK IF: Difficulty breathing occurs You develop any new or worsening symptoms You have any questions or concerns documented in this encounter [facility] 11-20-2023 Note HNO ID: [id number] Author: RACHEL MARTINS APRN.ADRIENNE Service: ? Author Type: Nurse Practitioner Type: Progress Notes Filed: 11/20/2023 13:26 Note Text: CC: Patient presents with: runny nose, cough: Requesting another antibiotic HPI: Markus Stratton is a 68 year old male who presents to the office with above complaint He was seen in [facility] on 11/10 for three day history of cough and congestion. Patient declined chest x-ray and COVID testing. He was treated with Amoxicillin for right ear infection and Tessalon Perles. Symptoms have mostly resolved except for the cough. Cough is non-productive, worse at night when he lays down and interfering with sleep. Temperature elevation: No Chills: No Shortness of breath: No Fatigue: Yes Muscle aches: No Headache: No New loss of smell or taste: No Sore throat: No Nasal congestion: No Rhinorrhea: Yes clear drainage Nausea and/or vomiting: No Diarrhea: No Denies: ear pain, ear pressure , and decreased appetite. PMH: Non-contributory OTC meds/remedies that patient has tried: Mucinex without any relief. Tessalon Perles were also ineffective. Review of Systems See HPI PAST MEDICAL HISTORY No date: Anxiety and depression No date: Chronic insomnia No date: HTN (hypertension) No date: Obese No date: Primary hypertension No date: RLS (restless legs syndrome) PAST SURGICAL HISTORY No date: APPENDECTOMY 08/30/2015: CARPAL TUNNEL; Right 06/2017: COLONOSCOPY 07/14/2017: COLONOSCOPY SCREENING Comment: Dr. Mohan @ [facility]; Ascending colon polyp x1, biopsy- tubular adenoma; recommended repeat in 3 yrs No date: TONSILLECTOMY HX No date: VASECTOMY UNI/BI SPX W/POSTOP SEMEN EXAMS ALLERGIES Patient has no known allergies. MEDICATIONS carbidopa-levodopa (SINEMET) 25-100 mg per tablet Take 2 tablets by mouth three times a day. benzonatate (TESSALON PERLE) 100 mg capsule Take 1 capsule by mouth three times a day as needed. pramipexole (MIRAPEX) 0.5 mg tablet Take 1 tablet by mouth daily at bedtime. lisinopril (ZESTRIL) 5 mg tablet Take 1 tablet by mouth once daily. Zinc 50 mg tab Take 50 mg by mouth once daily. (Patient not taking: Reported on 11/17/2023) Magnesium Oxide 500 mg tab Take 500 mg by mouth once daily. (Patient not taking: Reported on 11/17/2023) glucosamine HCl/chondroitin granger (GLUCOSAMINE-CHONDROITIN) 2,000-1,200 mg/30 mL liqd Take by mouth once daily. (Patient not taking: Reported on 11/17/2023) Cholecalciferol, Vitamin D3, 25 mcg (1,000 unit) cap Take 2,000 Units by mouth once daily. (Patient not taking: Reported on 11/17/2023) aspirin 325 mg ORAL tablet Take 1 tablet by mouth once daily. vitamin b complex tab Take 1 tablet by mouth once daily. (Patient not taking: Reported on 11/17/2023) ascorbic acid, vitamin C, (VITAMIN C) 500 mg tablet Take 1 tablet by mouth once daily. FAMILY HISTORY Problem Relation Age of Onset No Known Problems Mother Leukemia Father No Known Problems Sister Parkinson?s Disease Brother No Known Problems Maternal Grandmother No Known Problems Maternal Grandfather No Known Problems Paternal Grandmother No Known Problems Paternal Grandfather Colon Cancer Daughter Social History Tobacco Use Smoking status: Never Smokeless tobacco: Never Vaping Use Vaping status: Never Used Substance Use Topics Alcohol use: Not Currently Comment: occasionally Drug use: Never BP 140/92 Pulse 64 Temp 36.9 ?C (98.4 ?F) (Temporal) Resp 16 Wt 91.7 kg (202 lb 2.6 oz) SpO2 93% BMI 34.70 kg/m? Physical Exam Vitals reviewed. Constitutional: General: He is not in acute distress. Appearance: Normal appearance. He is not ill-appearing or toxic-appearing. HENT: Head: Normocephalic and atraumatic. Right Ear: Tympanic membrane normal. Left Ear: Tympanic membrane normal. Nose: Right Sinus: No maxillary sinus tenderness or frontal sinus tenderness. Left Sinus: No maxillary sinus tenderness or frontal sinus tenderness. Mouth/Throat: Lips: [place]. Mouth: Mucous membranes are moist. Pharynx: Oropharynx is clear. Postnasal drip (clear) present. Cardiovascular: Rate and Rhythm: Normal rate and regular rhythm. Heart sounds: Normal heart sounds. No murmur heard. Pulmonary: Effort: Pulmonary effort is normal. Breath sounds: Normal breath sounds. No wheezing, rhonchi or rales. Skin: General: Skin is warm and dry. Neurological: Mental Status: He is alert. ASSESSMENT/PLAN: 1. Acute cough - ICD9: 786.2, ICD10: R05.1 Post infectious cough. No symptoms or exam findings for acute infection. Cough care advice given - CODEINE 10 MG-GUAIFENESIN 100 MG/5 ML ORAL LIQUID as needed. Advised patient this can cause drowsiness, take with caution. - follow-up in 5 to 7 days if symptoms do not improve or sooner if worsening 2. Essential hypertension - ICD9: 401.9, ICD10: I10 BP elevated at visit today. Possibly due to cough and recent illness - Rec (more content not included)... [facility] 11-20-2023 History of Present illness Narrative CC: Patient presents with: runny nose, cough: Requesting another antibiotic HPI: Markus Stratton is a 68 year old male who presents to the office with above complaint He was seen in [facility] on 11/10 for three day history of cough and congestion. Patient declined chest x-ray and COVID testing. He was treated with Amoxicillin for right ear infection and Tessalon Perles. Symptoms have mostly resolved except for the cough. Cough is non-productive, worse at night when he lays down and interfering with sleep. Temperature elevation: No Chills: No Shortness of breath: No Fatigue: Yes Muscle aches: No Headache: No New loss of smell or taste: No Sore throat: No Nasal congestion: No Rhinorrhea: Yes clear drainage Nausea and/or vomiting: No Diarrhea: No Denies: ear pain, ear pressure , and decreased appetite. PMH: Non-contributory OTC meds/remedies that patient has tried: Mucinex without any relief. Tessalon Perles were also ineffective. Review of Systems See HPI PAST MEDICAL HISTORY No date: Anxiety and depression No date: Chronic insomnia No date: HTN (hypertension) No date: Obese No date: Primary hypertension No date: RLS (restless legs syndrome) PAST SURGICAL HISTORY No date: APPENDECTOMY 08/30/2015: CARPAL TUNNEL; Right 06/2017: COLONOSCOPY 07/14/2017: COLONOSCOPY SCREENING Comment: Dr. Mohan @ [facility]; Ascending colon polyp x1, biopsy- tubular adenoma; recommended repeat in 3 yrs No date: TONSILLECTOMY HX No date: VASECTOMY UNI/BI SPX W/POSTOP SEMEN EXAMS ALLERGIES Patient has no known allergies. MEDICATIONS carbidopa-levodopa (SINEMET) 25-100 mg per tablet Take 2 tablets by mouth three times a day. benzonatate (TESSALON PERLE) 100 mg capsule Take 1 capsule by mouth three times a day as needed. pramipexole (MIRAPEX) 0.5 mg tablet Take 1 tablet by mouth daily at bedtime. lisinopril (ZESTRIL) 5 mg tablet Take 1 tablet by mouth once daily. Zinc 50 mg tab Take 50 mg by mouth once daily. (Patient not taking: Reported on 11/17/2023) Magnesium Oxide 500 mg tab Take 500 mg by mouth once daily. (Patient not taking: Reported on 11/17/2023) glucosamine HCl/chondroitin granger (GLUCOSAMINE-CHONDROITIN) 2,000-1,200 mg/30 mL liqd Take by mouth once daily. (Patient not taking: Reported on 11/17/2023) Cholecalciferol, Vitamin D3, 25 mcg (1,000 unit) cap Take 2,000 Units by mouth once daily. (Patient not taking: Reported on 11/17/2023) aspirin 325 mg ORAL tablet Take 1 tablet by mouth once daily. vitamin b complex tab Take 1 tablet by mouth once daily. (Patient not taking: Reported on 11/17/2023) ascorbic acid, vitamin C, (VITAMIN C) 500 mg tablet Take 1 tablet by mouth once daily. FAMILY HISTORY Problem Relation Age of Onset No Known Problems Mother Leukemia Father No Known Problems Sister Parkinson s Disease Brother No Known Problems Maternal Grandmother No Known Problems Maternal Grandfather No Known Problems Paternal Grandmother No Known Problems Paternal Grandfather Colon Cancer Daughter Social History Tobacco Use Smoking status: Never Smokeless tobacco: Never Vaping Use Vaping status: Never Used Substance Use Topics Alcohol use: Not Currently Comment: occasionally Drug use: Never BP 140/92 Pulse 64 Temp 36.9 C (98.4 F) (Temporal) Resp 16 Wt 91.7 kg (202 lb 2.6 oz) SpO2 93% BMI 34.70 kg/m Physical Exam Vitals reviewed. Constitutional: General: He is not in acute distress. Appearance: Normal appearance. He is not ill-appearing or toxic-appearing. HENT: Head: Normocephalic and atraumatic. Right Ear: Tympanic membrane normal. Left Ear: Tympanic membrane normal. Nose: Right Sinus: No maxillary sinus tenderness or frontal sinus tenderness. Left Sinus: No maxillary sinus tenderness or frontal sinus tenderness. Mouth/Throat: Lips: [place]. Mouth: Mucous membranes are moist. Pharynx: Oropharynx is clear. Postnasal drip (clear) present. Cardiovascular: Rate and Rhythm: Normal rate and regular rhythm. Heart sounds: Normal heart sounds. No murmur heard. Pulmonary: Effort: Pulmonary effort is normal. Breath sounds: Normal breath sounds. No wheezing, rhonchi or rales. Skin: General: Skin is warm and dry. Neurological: Mental Status: He is alert. ASSESSMENT/PLAN: 1. Acute cough - ICD9: 786.2, ICD10: R05.1 Post infectious cough. No symptoms or exam findings for acute infection. Cough care advice given - CODEINE 10 MG-GUAIFENESIN 100 MG/5 ML ORAL LIQUID as needed. Advised patient this can cause drowsiness, take with caution. - follow-up in 5 to 7 days if symptoms do not improve or sooner if worsening 2. Essential hypertension - ICD9: 401.9, ICD10: I10 BP elevated at visit today. Possibly due to cough and recent illness - Recommend home blood pressure monitoring, to bring results to next visit - Follow up in 4 weeks for hypertension visit Prescription instructions reviewed with patient as applicable. Potential red flag symptoms discussed with the patient. Reviewed appropriate action plan to take if red flag symptoms occur. Patient agreeable to treatment plan. Rachel Martins APRN.ADRIENNE documented in this encounter [facility] 11-20-2023 Telephone encounter Note Scheduled with Rachel. Patient was not happy about having to schedule another appt. Dina Moran MA [facility] 11-20-2023 Miscellaneous Notes Scheduled with Rachel. Patient was not happy about having to schedule another appt. Dina Moran MA Agree. Needs seen if still ill, in office or urgent care(who can see him after hours) Patient calls to request refill on amoxicillin and benzonatate for continued cough and runny nose. Recommended scheduling follow up appointment for re-eval from EC visit. 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 Requesting Dr. Warren send in prescriptions as requested and contact him at [phone] once completed. Kemi Damico RN documented in this encounter [facility] 11-20-2023 Telephone encounter Note Agree. Needs seen if still ill, in office or urgent care(who can see him after hours) [facility] 11-20-2023 Telephone encounter Note Patient calls to request refill on amoxicillin and benzonatate for continued cough and runny nose. Recommended scheduling follow up appointment for re-eval from EC visit. 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 Requesting Dr. Warren send in prescriptions as requested and contact him at [phone] once completed. Kemi Damico RN [facility] 11-17-2023 Instructions Nikki Javier MD - 11/17/2023 2:35 PM EDT Let's start a medication called carbidopa/levodopa. It's a symptomatic medication for Parkinson's Disease that helps replace dopamine to improve movement symptoms. Take a half pill three times a day for the first week, then increase to a full pill three times a day. Depending on how you respond you can go up to 1.5 pills three times a day after a few weeks, and then 2 pills three times a day after a few more weeks if no benefit or side effects. It works best when taken before meals, but if you get nauseous when taking it, eating a snack with it (preferably without protein) is ok. Watch out for side effects such as nausea, light-headedness, hallucinations, fatigue, or extra movements (dyskinesia). Breakfast Lunch Dinner Week 1 1/2 1/2 1/2 Week 2-4 1 1 1 Week 5-7 1.5 1.5 1.5 Week 8 and on 2 2 2 You can stop at a lower dose if you feel great on it or have side effects. Do physical and occupational therapy for the Parkinson's. Consider looking into research at [facility]. documented in this encounter [facility] 11-17-2023 Note HNO ID: [id number] Author: NIKKI JAVIER MD Service: ? Author Type: Physician Type: Progress Notes Filed: 12/12/2023 13:58 Note Text: NEW PATIENT EVALUATION Subjective HPI Markus Stratton is a 68 year old right-handed male who presents for evaluation of possible parkinsonism. Dr. Christo Warren MD is the PCP and referring physician. Feels like when he turned 68 he just started slowing down. Feels like it takes a long time to put his clothes and shoes on. Feels stiff. Walking is slow. Harder to use his hands. Handwriting small and messy. Sometimes feels a little shaky. Trying to watch 2-3 miles 3 times a week, hasn't done it in a little while due to a cold. Was having sleep difficulty with restless leg, pramipexole titrated to 0.5 mg which has helped. Sense of smell has never been good. No constipation. Lives alone, no known dream behavior, never fallen out of bed, blankets seem to be in the same place. Brother has had PD since his 50s, paternal cousin also with PD. Medications: Current Outpatient Medications Medication Sig Dispense Refill amoxicillin (AMOXIL) 875 mg tablet Take 1 tablet by mouth two times a day for 7 days. 14 tablet 0 benzonatate (TESSALON PERLE) 100 mg capsule Take 1 capsule by mouth three times a day as needed. 21 capsule 0 pramipexole (MIRAPEX) 0.5 mg tablet Take 1 tablet by mouth daily at bedtime. 30 tablet 5 lisinopril (ZESTRIL) 5 mg tablet Take 1 tablet by mouth once daily. 30 tablet 11 aspirin 325 mg ORAL tablet Take 1 tablet by mouth once daily. 0 ascorbic acid, vitamin C, (VITAMIN C) 500 mg tablet Take 1 tablet by mouth once daily. 0 Zinc 50 mg tab Take 50 mg by mouth once daily. (Patient not taking: Reported on 11/17/2023) Magnesium Oxide 500 mg tab Take 500 mg by mouth once daily. (Patient not taking: Reported on 11/17/2023) glucosamine HCl/chondroitin granger (GLUCOSAMINE-CHONDROITIN) 2,000-1,200 mg/30 mL liqd Take by mouth once daily. (Patient not taking: Reported on 11/17/2023) Cholecalciferol, Vitamin D3, 25 mcg (1,000 unit) cap Take 2,000 Units by mouth once daily. (Patient not taking: Reported on 11/17/2023) 0 vitamin b complex tab Take 1 tablet by mouth once daily. (Patient not taking: Reported on 11/17/2023) 0 No current facility-administered medications for this visit. ROS ROS: His ROS was positive for that mentioned in the HPI. Otherwise a 10-point ROS was completed and was negative. ALLERGIES No Known Allergies Past Medical History: PAST MEDICAL HISTORY No date: Anxiety and depression No date: Chronic insomnia No date: HTN (hypertension) No date: Obese No date: Primary hypertension No date: RLS (restless legs syndrome) Family History: FAMILY HISTORY Problem Relation Age of Onset No Known Problems Mother Leukemia Father No Known Problems Sister Parkinson?s Disease Brother No Known Problems Maternal Grandmother No Known Problems Maternal Grandfather No Known Problems Paternal Grandmother No Known Problems Paternal Grandfather Colon Cancer Daughter Social History: Social History Tobacco Use Smoking status: Never Smokeless tobacco: Never Vaping Use Vaping status: Never Used Substance Use Topics Alcohol use: Not Currently Comment: occasionally Drug use: Never 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 Head: Normocephalic Neck: Supple Heart: RRR Peripheral Pulses: Normal Neurologic Examination Mental Status: He is alert. He is fully oriented. Attention is intact. Recent and remote memory is intact. Language shows normal comprehension and fluency. Praxis is normal. Affect is appropriate. Cranial Nerves: Pupils are equal and reactive to light. Extraocular movements show full and smooth pursuits. No nystagmus. Visual carpio are full to confrontation. Facial sensation is intact. Facial activation is symmetric. Hearing is intact to conversation. There is mild hypomimia. There is mild hypophonia. There is no dysarthria. Tongue is midline. Palate elevates symmetrically. Shoulder shrug is slightly delayed on left. Motor: Muscle bulk is normal. No tremor. Mod L>R bradykinesia. Minimal L>R rigidity. Sensory: Intact to fine touch, temp, and vibration. Reflex: 2+ and symmetric. Coordination: Finger to nose is smooth without ataxia. Gait/station: Slower mahi, narrow base, decreased arm swing on left DATA REVIEWED Actual films/image/tracing reviewed and summarized as follows: n/a Old records reviewed and summarized as follows: Reviewed PCP referral records Assessment/Plan Assessment AND Plan: Markus Stratton is a 68 year old right-handed male with a history of RLS and family history of PD who presents for (more content not included)... [facility] 11-17-2023 History of Present illness Narrative NEW PATIENT EVALUATION Subjective HPI Markus Stratton is a 68 year old right-handed male who presents for evaluation of possible parkinsonism. Dr. Christo Warren MD is the PCP and referring physician. Feels like when he turned 68 he just started slowing down. Feels like it takes a long time to put his clothes and shoes on. Feels stiff. Walking is slow. Harder to use his hands. Handwriting small and messy. Sometimes feels a little shaky. Trying to watch 2-3 miles 3 times a week, hasn't done it in a little while due to a cold. Was having sleep difficulty with restless leg, pramipexole titrated to 0.5 mg which has helped. Sense of smell has never been good. No constipation. Lives alone, no known dream behavior, never fallen out of bed, blankets seem to be in the same place. Brother has had PD since his 50s, paternal cousin also with PD. Medications: Current Outpatient Medications Medication Sig Dispense Refill amoxicillin (AMOXIL) 875 mg tablet Take 1 tablet by mouth two times a day for 7 days. 14 tablet 0 benzonatate (TESSALON PERLE) 100 mg capsule Take 1 capsule by mouth three times a day as needed. 21 capsule 0 pramipexole (MIRAPEX) 0.5 mg tablet Take 1 tablet by mouth daily at bedtime. 30 tablet 5 lisinopril (ZESTRIL) 5 mg tablet Take 1 tablet by mouth once daily. 30 tablet 11 aspirin 325 mg ORAL tablet Take 1 tablet by mouth once daily. 0 ascorbic acid, vitamin C, (VITAMIN C) 500 mg tablet Take 1 tablet by mouth once daily. 0 Zinc 50 mg tab Take 50 mg by mouth once daily. (Patient not taking: Reported on 11/17/2023) Magnesium Oxide 500 mg tab Take 500 mg by mouth once daily. (Patient not taking: Reported on 11/17/2023) glucosamine HCl/chondroitin granger (GLUCOSAMINE-CHONDROITIN) 2,000-1,200 mg/30 mL liqd Take by mouth once daily. (Patient not taking: Reported on 11/17/2023) Cholecalciferol, Vitamin D3, 25 mcg (1,000 unit) cap Take 2,000 Units by mouth once daily. (Patient not taking: Reported on 11/17/2023) 0 vitamin b complex tab Take 1 tablet by mouth once daily. (Patient not taking: Reported on 11/17/2023) 0 No current facility-administered medications for this visit. ROS ROS: His ROS was positive for that mentioned in the HPI. Otherwise a 10-point ROS was completed and was negative. ALLERGIES No Known Allergies Past Medical History: PAST MEDICAL HISTORY No date: Anxiety and depression No date: Chronic insomnia No date: HTN (hypertension) No date: Obese No date: Primary hypertension No date: RLS (restless legs syndrome) Family History: FAMILY HISTORY Problem Relation Age of Onset No Known Problems Mother Leukemia Father No Known Problems Sister Parkinson s Disease Brother No Known Problems Maternal Grandmother No Known Problems Maternal Grandfather No Known Problems Paternal Grandmother No Known Problems Paternal Grandfather Colon Cancer Daughter Social History: Social History Tobacco Use Smoking status: Never Smokeless tobacco: Never Vaping Use Vaping status: Never Used Substance Use Topics Alcohol use: Not Currently Comment: occasionally Drug use: Never 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 Head: Normocephalic Neck: Supple Heart: RRR Peripheral Pulses: Normal Neurologic Examination Mental Status: He is alert. He is fully oriented. Attention is intact. Recent and remote memory is intact. Language shows normal comprehension and fluency. Praxis is normal. Affect is appropriate. Cranial Nerves: Pupils are equal and reactive to light. Extraocular movements show full and smooth pursuits. No nystagmus. Visual carpio are full to confrontation. Facial sensation is intact. Facial activation is symmetric. Hearing is intact to conversation. There is mild hypomimia. There is mild hypophonia. There is no dysarthria. Tongue is midline. Palate elevates symmetrically. Shoulder shrug is slightly delayed on left. Motor: Muscle bulk is normal. No tremor. Mod L>R bradykinesia. Minimal L>R rigidity. Sensory: Intact to fine touch, temp, and vibration. Reflex: 2+ and symmetric. Coordination: Finger to nose is smooth without ataxia. Gait/station: Slower mahi, narrow base, decreased arm swing on left DATA REVIEWED Actual films/image/tracing reviewed and summarized as follows: n/a Old records reviewed and summarized as follows: Reviewed PCP referral records Assessment/Plan Assessment & Plan: Markus Stratton is a 68 year old right-handed male with a history of RLS and family history of PD who presents for evaluation of possible parkinsonism. 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 We discussed the presentation and why it is consistent with PD. Explained PD including pathophysiology, potential symptoms, and treatment approach. Explained medications may treat symptoms but do not alter the course of the condition. I explained the importance of exercise in maintaining independence. Placed referral to PT and OT for PD therapy. Start levodopa titrate to 200 mg TID, discussed side effects and proper timing. Gave info on PD research at [facility]. He should return to see me in 4 months. Nikki Javier MD [facility] Neurology documented in this encounter [facility] 11-11-2023 Note HNO ID: [id number] Author: ISRAEL ROQUE PA Service: ? Author Type: Physician Engineering Director Type: Progress Notes Filed: 11/11/2023 17:49 Note Text: This note was created using NoteWriter. Subjective Markus Stratton is a 68 year old male. HPI 68-year-old male presents for cough, runny nose, fatigue x 4 days. Patient states on Friday he started getting a dry cough. He states he feels congested in the chest, but is not coughing anything up. He has a runny nose that is constant. He has had some fatigue. No fevers or chills. No vomiting or diarrhea. Reports stomach pain with cough, otherwise no abdominal pain. He has tried NyQuil, sinus medication, Mucinex, Rea's cough drops. States the cough drops help somewhat, but the rest of the medication has not been helping. He is unaware of any sick contacts. No chest pain or shortness of breath. No history of asthma, COPD or pneumonia. No other complaint. PAST MEDICAL HISTORY No date: Anxiety and depression No date: Chronic insomnia No date: HTN (hypertension) No date: Obese No date: Primary hypertension No date: RLS (restless legs syndrome) PAST SURGICAL HISTORY No date: APPENDECTOMY 08/30/2015: CARPAL TUNNEL; Right 06/2017: COLONOSCOPY 07/14/2017: COLONOSCOPY SCREENING Comment: Dr. Mohan @ [facility]; Ascending colon polyp x1, biopsy- tubular adenoma; recommended repeat in 3 yrs No date: TONSILLECTOMY HX No date: VASECTOMY UNI/BI SPX W/POSTOP SEMEN EXAMS ALLERGIES Patient has no known allergies. MEDICATIONS pramipexole (MIRAPEX) 0.5 mg tablet Take 1 tablet by mouth daily at bedtime. lisinopril (ZESTRIL) 5 mg tablet Take 1 tablet by mouth once daily. Zinc 50 mg tab Take 50 mg by mouth once daily. Magnesium Oxide 500 mg tab Take 500 mg by mouth once daily. glucosamine HCl/chondroitin granger (GLUCOSAMINE-CHONDROITIN) 2,000-1,200 mg/30 mL liqd Take by mouth once daily. Cholecalciferol, Vitamin D3, 25 mcg (1,000 unit) cap Take 2,000 Units by mouth once daily. aspirin 325 mg ORAL tablet Take 1 tablet by mouth once daily. vitamin b complex tab Take 1 tablet by mouth once daily. ascorbic acid, vitamin C, (VITAMIN C) 500 mg tablet Take 1 tablet by mouth once daily. amoxicillin (AMOXIL) 875 mg tablet Take 1 tablet by mouth two times a day for 7 days. benzonatate (TESSALON PERLE) 100 mg capsule Take 1 capsule by mouth three times a day as needed. FAMILY HISTORY Problem Relation Age of Onset No Known Problems Mother Leukemia Father No Known Problems Sister Parkinson?s Disease Brother No Known Problems Maternal Grandmother No Known Problems Maternal Grandfather No Known Problems Paternal Grandmother No Known Problems Paternal Grandfather Colon Cancer Daughter Social History Tobacco Use Smoking status: Never Smokeless tobacco: Never Vaping Use Vaping status: Never Used Substance Use Topics Alcohol use: Not Currently Comment: occasionally Drug use: Never Review of Systems Constitutional: Positive for fatigue. Negative for chills and fever. HENT: Positive for congestion and rhinorrhea. Negative for sore throat. Respiratory: Positive for cough. Negative for shortness of breath. Gastrointestinal: Negative for diarrhea and vomiting. Objective BP 136/84 Pulse 67 Temp 36.9 ?C (98.4 ?F) (Tympanic) Resp 16 Wt 93.8 kg (206 lb 12.7 oz) SpO2 96% BMI 35.50 kg/m? Physical Exam Vitals and nursing note reviewed. Constitutional: General: He is not in acute distress. Appearance: Normal appearance. He is not toxic-appearing. HENT: Right Ear: A middle ear effusion is present. Tympanic membrane is bulging. Left Ear: A middle ear effusion is present. Ears: Comments: Purulent middle ear effusion on the right. Clear middle ear effusion on the left. Nose: Congestion present. Mouth/Throat: Mouth: Mucous membranes are moist. Eyes: Conjunctiva/sclera: Conjunctivae normal. Cardiovascular: Rate and Rhythm: Normal rate and regular rhythm. Pulmonary: Effort: Pulmonary effort is normal. Breath sounds: Normal breath sounds. Skin: General: Skin is warm and dry. Neurological: Mental Status: He is alert. Assessment and Plan ASSESSMENT/PLAN: 1. Acute otitis media, right - ICD9: 382.9, ICD10: H66.91 (primary diagnosis) - Will begin treatment with Amoxicillin for 7 days - Supportive care with plenty of fluids, rest, and analgesia prn. 2. Acute cough - ICD9: 786.2, ICD10: R05.1 -Lungs clear on exam. Did discuss chest x-ray due to patient feeling congested in the chest and cough x 5 days. However, he declines. -Rx for Tessalon Perles. -Follow-up if symptoms persist. -Declines COVID swab Diagnosis and treatment plan were discussed and questions were answered to the patient's satisfaction. Pt acknowledged understanding of concepts and follow up plan. Specific signs and symptoms that would indicate the need for higher level of care were discussed in detail warranting prompt ER ev (more content not included)... [facility] 11-11-2023 History of Present illness Narrative This note was created using tenXerriter. Subjective Markus Stratton is a 68 year old male. HPI 68-year-old male presents for cough, runny nose, fatigue x 4 days. Patient states on Friday he started getting a dry cough. He states he feels congested in the chest, but is not coughing anything up. He has a runny nose that is constant. He has had some fatigue. No fevers or chills. No vomiting or diarrhea. Reports stomach pain with cough, otherwise no abdominal pain. He has tried NyQuil, sinus medication, Mucinex, Rea's cough drops. States the cough drops help somewhat, but the rest of the medication has not been helping. He is unaware of any sick contacts. No chest pain or shortness of breath. No history of asthma, COPD or pneumonia. No other complaint. PAST MEDICAL HISTORY No date: Anxiety and depression No date: Chronic insomnia No date: HTN (hypertension) No date: Obese No date: Primary hypertension No date: RLS (restless legs syndrome) PAST SURGICAL HISTORY No date: APPENDECTOMY 08/30/2015: CARPAL TUNNEL; Right 06/2017: COLONOSCOPY 07/14/2017: COLONOSCOPY SCREENING Comment: Dr. Mohan @ [facility]; Ascending colon polyp x1, biopsy- tubular adenoma; recommended repeat in 3 yrs No date: TONSILLECTOMY HX No date: VASECTOMY UNI/BI SPX W/POSTOP SEMEN EXAMS ALLERGIES Patient has no known allergies. MEDICATIONS pramipexole (MIRAPEX) 0.5 mg tablet Take 1 tablet by mouth daily at bedtime. lisinopril (ZESTRIL) 5 mg tablet Take 1 tablet by mouth once daily. Zinc 50 mg tab Take 50 mg by mouth once daily. Magnesium Oxide 500 mg tab Take 500 mg by mouth once daily. glucosamine HCl/chondroitin granger (GLUCOSAMINE-CHONDROITIN) 2,000-1,200 mg/30 mL liqd Take by mouth once daily. Cholecalciferol, Vitamin D3, 25 mcg (1,000 unit) cap Take 2,000 Units by mouth once daily. aspirin 325 mg ORAL tablet Take 1 tablet by mouth once daily. vitamin b complex tab Take 1 tablet by mouth once daily. ascorbic acid, vitamin C, (VITAMIN C) 500 mg tablet Take 1 tablet by mouth once daily. amoxicillin (AMOXIL) 875 mg tablet Take 1 tablet by mouth two times a day for 7 days. benzonatate (TESSALON PERLE) 100 mg capsule Take 1 capsule by mouth three times a day as needed. FAMILY HISTORY Problem Relation Age of Onset No Known Problems Mother Leukemia Father No Known Problems Sister Parkinson s Disease Brother No Known Problems Maternal Grandmother No Known Problems Maternal Grandfather No Known Problems Paternal Grandmother No Known Problems Paternal Grandfather Colon Cancer Daughter Social History Tobacco Use Smoking status: Never Smokeless tobacco: Never Vaping Use Vaping status: Never Used Substance Use Topics Alcohol use: Not Currently Comment: occasionally Drug use: Never Review of Systems Constitutional: Positive for fatigue. Negative for chills and fever. HENT: Positive for congestion and rhinorrhea. Negative for sore throat. Respiratory: Positive for cough. Negative for shortness of breath. Gastrointestinal: Negative for diarrhea and vomiting. Objective BP 136/84 Pulse 67 Temp 36.9 C (98.4 F) (Tympanic) Resp 16 Wt 93.8 kg (206 lb 12.7 oz) SpO2 96% BMI 35.50 kg/m Physical Exam Vitals and nursing note reviewed. Constitutional: General: He is not in acute distress. Appearance: Normal appearance. He is not toxic-appearing. HENT: Right Ear: A middle ear effusion is present. Tympanic membrane is bulging. Left Ear: A middle ear effusion is present. Ears: Comments: Purulent middle ear effusion on the right. Clear middle ear effusion on the left. Nose: Congestion present. Mouth/Throat: Mouth: Mucous membranes are moist. Eyes: Conjunctiva/sclera: Conjunctivae normal. Cardiovascular: Rate and Rhythm: Normal rate and regular rhythm. Pulmonary: Effort: Pulmonary effort is normal. Breath sounds: Normal breath sounds. Skin: General: Skin is warm and dry. Neurological: Mental Status: He is alert. Assessment and Plan ASSESSMENT/PLAN: 1. Acute otitis media, right - ICD9: 382.9, ICD10: H66.91 (primary diagnosis) - Will begin treatment with Amoxicillin for 7 days - Supportive care with plenty of fluids, rest, and analgesia prn. 2. Acute cough - ICD9: 786.2, ICD10: R05.1 -Lungs clear on exam. Did discuss chest x-ray due to patient feeling congested in the chest and cough x 5 days. However, he declines. -Rx for Tessalon Perles. -Follow-up if symptoms persist. -Declines COVID swab Diagnosis and treatment plan were discussed and questions were answered to the patient's satisfaction. Pt acknowledged understanding of concepts and follow up plan. Specific signs and symptoms that would indicate the need for higher level of care were discussed in detail warranting prompt ER evaluation. SHANNAN Horton documented in this encounter [facility] 10-27-2023 Telephone encounter Note ----- Message ----- From: Bonny Bains APRN.CNP Sent: 09/29/2023 4:22 PM EDT To: [facility] [place] [facility] Schedule Pool Carlitos is going to call in to schedule (if he decides to move forward with colonoscopy). I didn't place order because I am unsure if he will choose MAC or IV sedation. He will need to hold his 325mg aspirin prior. Bonny Schwartz APRN.LANDING SUPPORT SPECIALIST [facility] 10-27-2023 Miscellaneous Notes ----- Message ----- From: Bonny Bains APRN.CNP Sent: 09/29/2023 4:22 PM EDT To: [facility] Schedule Pool Carlitos is going to call in to schedule (if he decides to move forward with colonoscopy). I didn't place order because I am unsure if he will choose MAC or IV sedation. He will need to hold his 325mg aspirin prior. Bonny Schwartz APRN.LANDING SUPPORT SPECIALIST Patient to call when ready. Once patient calls order will be entered for correct anesthesia type [place] [employer] Last colonoscopy was done under MAC anesthesia at [facility]. The patient states I want to make sure I am OUT. He doesn't want to drive to [place]. We discussed the IV sedation here and he would like to think about where he would like to have scope done. He is going to call into the office once he decides. Carlitos is to hold his aspirin prior to endoscopy documented in this encounter [facility] 10-06-2023 Note HNO ID: [id number] Author: CHRISTO WARREN MD Service: ? Author Type: Physician Type: Progress Notes Filed: 10/06/2023 11:48 Note Text: Patient presents with: Follow Up HPI: Patient presents today for office visit for 4 week follow up on blood pressure. HTN: Lisinopril increased to 5 mg daily at last OV No side effects Has BP machine at home and was encouraged at last OV to start monitoring and bring readings to visit. He has not done so today. Denies chest pain and shortness of breath. Denies headaches and dizziness. Denies palpitations and syncope. Denies edema. Seeing neurology. MEDICATIONS: Current Outpatient Medications Medication Sig pramipexole (MIRAPEX) 0.5 mg tablet Take 1 tablet by mouth daily at bedtime. lisinopril (ZESTRIL) 5 mg tablet Take 1 tablet by mouth once daily. Zinc 50 mg tab Take 50 mg by mouth once daily. Magnesium Oxide 500 mg tab Take 500 mg by mouth once daily. glucosamine HCl/chondroitin granger (GLUCOSAMINE-CHONDROITIN) 2,000-1,200 mg/30 mL liqd Take by mouth once daily. Cholecalciferol, Vitamin D3, 25 mcg (1,000 unit) cap Take 2,000 Units by mouth once daily. aspirin 325 mg ORAL tablet Take 1 tablet by mouth once daily. vitamin b complex tab Take 1 tablet by mouth once daily. ascorbic acid, vitamin C, (VITAMIN C) 500 mg tablet Take 1 tablet by mouth once daily. No current facility-administered medications for this visit. ALLERGIES: ALLERGIES No Known Allergies PAST MEDICAL HISTORY Diagnosis Date Anxiety and depression Chronic insomnia HTN (hypertension) Obese Primary hypertension RLS (restless legs syndrome) PAST SURGICAL HISTORY Procedure Laterality Date APPENDECTOMY CARPAL TUNNEL Right 08/30/2015 COLONOSCOPY 06/2017 COLONOSCOPY SCREENING 07/14/2017 Dr. Mohan @ [facility]; Ascending colon polyp x1, biopsy- tubular adenoma; recommended repeat in 3 yrs TONSILLECTOMY HX VASECTOMY UNI/BI SPX W/POSTOP SEMEN EXAMS FAMILY HISTORY Problem Relation Age of Onset No Known Problems Mother Leukemia Father No Known Problems Sister Parkinson?s Disease Brother No Known Problems Maternal Grandmother No Known Problems Maternal Grandfather No Known Problems Paternal Grandmother No Known Problems Paternal Grandfather Colon Cancer Daughter Social History Tobacco Use Smoking status: Never Smokeless tobacco: Never Vaping Use Vaping Use: Never used Substance Use Topics Alcohol use: Not Currently Comment: occasionally Drug use: Never Reviewed current medications, allergies, past medical history, surgical history, family history and social history today. REVIEW OF SYSTEMS All other reviewed and negative other than HPI. HEALTH MAINTENANCE: Reviewed health maintenance issues today and recommended the following in detail. BP Controlled (<130/80) due on 10/30/2018 Colorectal Cancer Screening due on 12/19/2022 VITALS: BP 134/88 Pulse 64 Ht 162.6 cm (5' 4) Wt 91.6 kg (202 lb) SpO2 96% BMI 34.67 kg/m? Last 4 Encounter Wt Readings: Date: Wt: 10/06/2023 91.6 kg (202 lb) 09/29/2023 90.7 kg (200 lb) 09/08/2023 89.8 kg (198 lb) 03/31/2023 91.3 kg (201 lb 3.2 oz) PHYSICAL EXAMINATION: General appearance: Well appearing, alert, in no acute distress, well-hydrated, well nourished. Skin: Skin color, texture, turgor normal, no suspicious rashes or lesions Head: Normocephalic, no masses, lesions, tenderness or abnormalities Lungs: Lungs clear to auscultation. No wheezing, rhonchi, rales Heart: RRR without murmur, gallop, or rubs. No ectopy Abdomen: Normal abdominal exam, Abdomen soft, non-tender. Bowel sounds normal. No masses, organomegaly Extremities: No deformities, edema, skin discoloration, clubbing or cyanosis. Good capillary refill. ASSESSMENT/PLAN: 1. Essential hypertension - ICD9: 401.9, ICD10: I10 - Controlled - Continue current medications Christo Warren MD [facility] 10-06-2023 History of Present illness Narrative Patient presents with: Follow Up HPI: Patient presents today for office visit for 4 week follow up on blood pressure. HTN: Lisinopril increased to 5 mg daily at last OV No side effects Has BP machine at home and was encouraged at last OV to start monitoring and bring readings to visit. He has not done so today. Denies chest pain and shortness of breath. Denies headaches and dizziness. Denies palpitations and syncope. Denies edema. Seeing neurology. MEDICATIONS: Current Outpatient Medications Medication Sig pramipexole (MIRAPEX) 0.5 mg tablet Take 1 tablet by mouth daily at bedtime. lisinopril (ZESTRIL) 5 mg tablet Take 1 tablet by mouth once daily. Zinc 50 mg tab Take 50 mg by mouth once daily. Magnesium Oxide 500 mg tab Take 500 mg by mouth once daily. glucosamine HCl/chondroitin granger (GLUCOSAMINE-CHONDROITIN) 2,000-1,200 mg/30 mL liqd Take by mouth once daily. Cholecalciferol, Vitamin D3, 25 mcg (1,000 unit) cap Take 2,000 Units by mouth once daily. aspirin 325 mg ORAL tablet Take 1 tablet by mouth once daily. vitamin b complex tab Take 1 tablet by mouth once daily. ascorbic acid, vitamin C, (VITAMIN C) 500 mg tablet Take 1 tablet by mouth once daily. No current facility-administered medications for this visit. ALLERGIES: ALLERGIES No Known Allergies PAST MEDICAL HISTORY Diagnosis Date Anxiety and depression Chronic insomnia HTN (hypertension) Obese Primary hypertension RLS (restless legs syndrome) PAST SURGICAL HISTORY Procedure Laterality Date APPENDECTOMY CARPAL TUNNEL Right 08/30/2015 COLONOSCOPY 06/2017 COLONOSCOPY SCREENING 07/14/2017 Dr. Mohan @ [facility]; Ascending colon polyp x1, biopsy- tubular adenoma; recommended repeat in 3 yrs TONSILLECTOMY HX VASECTOMY UNI/BI SPX W/POSTOP SEMEN EXAMS FAMILY HISTORY Problem Relation Age of Onset No Known Problems Mother Leukemia Father No Known Problems Sister Parkinson s Disease Brother No Known Problems Maternal Grandmother No Known Problems Maternal Grandfather No Known Problems Paternal Grandmother No Known Problems Paternal Grandfather Colon Cancer Daughter Social History Tobacco Use Smoking status: Never Smokeless tobacco: Never Vaping Use Vaping Use: Never used Substance Use Topics Alcohol use: Not Currently Comment: occasionally Drug use: Never Reviewed current medications, allergies, past medical history, surgical history, family history and social history today. REVIEW OF SYSTEMS All other reviewed and negative other than HPI. HEALTH MAINTENANCE: Reviewed health maintenance issues today and recommended the following in detail. BP Controlled (<130/80) due on 10/30/2018 Colorectal Cancer Screening due on 12/19/2022 VITALS: BP 134/88 Pulse 64 Ht 162.6 cm (5' 4) Wt 91.6 kg (202 lb) SpO2 96% BMI 34.67 kg/m Last 4 Encounter Wt Readings: Date: Wt: 10/06/2023 91.6 kg (202 lb) 09/29/2023 90.7 kg (200 lb) 09/08/2023 89.8 kg (198 lb) 03/31/2023 91.3 kg (201 lb 3.2 oz) PHYSICAL EXAMINATION: General appearance: Well appearing, alert, in no acute distress, well-hydrated, well nourished. Skin: Skin color, texture, turgor normal, no suspicious rashes or lesions Head: Normocephalic, no masses, lesions, tenderness or abnormalities Lungs: Lungs clear to auscultation. No wheezing, rhonchi, rales Heart: RRR without murmur, gallop, or rubs. No ectopy Abdomen: Normal abdominal exam, Abdomen soft, non-tender. Bowel sounds normal. No masses, organomegaly Extremities: No deformities, edema, skin discoloration, clubbing or cyanosis. Good capillary refill. ASSESSMENT/PLAN: 1. Essential hypertension - ICD9: 401.9, ICD10: I10 - Controlled - Continue current medications Christo Warren MD documented in this encounter [facility] 10-01-2023 Telephone encounter Note Patient to call when ready. Once patient calls order will be entered for correct anesthesia type [place] [employer] [facility] 10-01-2023 Telephone encounter Note Last colonoscopy was done under MAC anesthesia at [facility]. The patient states I want to make sure I am OUT. He doesn't want to drive to [place]. We discussed the IV sedation here and he would like to think about where he would like to have scope done. He is going to call into the office once he decides. Carlitos is to hold his aspirin prior to endoscopy [facility] 09-29-2023 Nurse Note REVIEW OF SYSTEMS: General: The patient denies fatigue, denies weight loss, denies weight gain, denies feeling hot, and denies feelings of cold. Eyes: The patient denies glaucoma, denies eye injury/surgery, wears glasses or contacts. Ear/Nose/Throat: The patient denies allergies, denies hayfever, denies ear infections, and denies bloody noses. Cardiovascular: The patient denies chest pain, denies heart disease, NOTES high blood pressure,denies cardiac stent, denies prior heart attack, denies irregular heart beat, denies high cholesterol, denies poor circulation, denies heart failure, other cardiac issues, denies claudication, denies cold feet, denies peripheral arterial stent. Respiratory: The patient denies tuberculosis, denies pneumonia, denies frequent cough, denies pulmonary embolism, denies shortness of breath, and denies coughing up blood. Gastrointestinal: The patient denies difficulty swallowing, denies acid reflux, denies ulcers, denies vomiting, denies jaundice/hepatitis, denies gallbladder problems, denies black or tarry stools, denies hemorrhoids, denies bleeding from rectum, denies diverticulitis, denies constipation, denies diarrhea, denies loss of stool control, and denies hernias. Kidney/Bladder: The patient denies kidney stones, denies urine infections, and denies bloody urine. Skin: The patient denies a history of skin cancer, denies bleeding/changing moles, and denies a history of skin rash. Neurologic: The patient denies a history of epilepsy/convulsions, denies headaches, denies head/spinal injuries, and denies stroke/TIA. Psychiatric: The patient denies psychiatric medications, NOTES depression, and denies voices, denies substance abuse. Endocrine: The patient denies thyroid disorders, denies diabetes, and denies hormonal problems. Hematologic: The patient denies a history of bruising, denies bleeding, and denies anemia, denies blood clots. Infections: The patient denies a history of measles and mumps, denies rheumatic fever, and denies sexually transmitted diseases. Musculoskeletal: The patient denies back pain/injury, denies back problems, denies sciatica, denies knee/foot trouble, denies arthritis, or denies gout. When was patient's last Mammogram screening? N/A Last Colonoscopy: 2017 Allyson Pollard RN [facility] 09-29-2023 Nurse Note REVIEW OF SYSTEMS: General: The patient denies fatigue, denies weight loss, denies weight gain, denies feeling hot, and denies feelings of cold. Eyes: The patient denies glaucoma, denies eye injury/surgery, wears glasses or contacts. Ear/Nose/Throat: The patient denies allergies, denies hayfever, denies ear infections, and denies bloody noses. Cardiovascular: The patient denies chest pain, denies heart disease, NOTES high blood pressure,denies cardiac stent, denies prior heart attack, denies irregular heart beat, denies high cholesterol, denies poor circulation, denies heart failure, other cardiac issues, denies claudication, denies cold feet, denies peripheral arterial stent. Respiratory: The patient denies tuberculosis, denies pneumonia, denies frequent cough, denies pulmonary embolism, denies shortness of breath, and denies coughing up blood. Gastrointestinal: The patient denies difficulty swallowing, denies acid reflux, denies ulcers, denies vomiting, denies jaundice/hepatitis, denies gallbladder problems, denies black or tarry stools, denies hemorrhoids, denies bleeding from rectum, denies diverticulitis, denies constipation, denies diarrhea, denies loss of stool control, and denies hernias. Kidney/Bladder: The patient denies kidney stones, denies urine infections, and denies bloody urine. Skin: The patient denies a history of skin cancer, denies bleeding/changing moles, and denies a history of skin rash. Neurologic: The patient denies a history of epilepsy/convulsions, denies headaches, denies head/spinal injuries, and denies stroke/TIA. Psychiatric: The patient denies psychiatric medications, NOTES depression, and denies voices, denies substance abuse. Endocrine: The patient denies thyroid disorders, denies diabetes, and denies hormonal problems. Hematologic: The patient denies a history of bruising, denies bleeding, and denies anemia, denies blood clots. Infections: The patient denies a history of measles and mumps, denies rheumatic fever, and denies sexually transmitted diseases. Musculoskeletal: The patient denies back pain/injury, denies back problems, denies sciatica, denies knee/foot trouble, denies arthritis, or denies gout. When was patient's last Mammogram screening? N/A Last Colonoscopy: 2017 Allyson Pollard RN documented in this encounter [facility] 09-26-2023 Note HNO ID: [id number] Author: BONNY BAINS APRN.LANDING SUPPORT SPECIALIST Service: ? Author Type: Nurse Practitioner Type: Progress Notes Filed: 09/29/2023 16:22 Note Text: HISTORY AND PHYSICAL Markus Stratton : 1955 REFERRING PHYSICIAN: Christo Zaragoza [facility] [place] [id number] CHIEF COMPLAINT: Patient presents with: Consult: Colonoscopy consultation HPI: Markus is a 68 year old male referred for endoscopy. Markus notes history of colonic polyps. Patient denies any change in bowel habits, weight changes, blood in stools, black tarry stools or abdominal pain. Refers family history of colon issues.-States his daughter was diagnosed with colon cancer at 21 years old. Markus notes no upper GI complaints. Markus has undergone prior endoscopy. Last colonoscopy was with Dr. Mohan at [facility] in June 2017 Impression: 1. Cecum: Normal appearance no mass lesions normal ileocecal valve. 2. Ascending colon: Normal appearance no mass or lesions. There were 2 small polyps identified both of them removed with snare cautery technique. One of them I nearly completely ablated with my cauterization. There will be much of any pathology report for it. The other one I was able to bring back to the channel of the scope and we should be able to send that off to pathology. 3. Transverse colon: Normal appearance no mass lesions 4. Descending colon: Normal appearance no mass lesions. 5. Sigmoid colon: Normal appearance no mass lesions. 6. Rectum: Normal appearance no mass lesions retroflexion did show some internal hemorrhoidal disease. Pathology: Ascending colon polyp, biopsy: Tubular adenoma Recommendation: Repeat colonoscopy in 3 years Current Outpatient Medications Medication Sig pramipexole (MIRAPEX) 0.5 mg tablet Take 1 tablet by mouth daily at bedtime. lisinopril (ZESTRIL) 5 mg tablet Take 1 tablet by mouth once daily. Zinc 50 mg tab Take 50 mg by mouth once daily. Magnesium Oxide 500 mg tab Take 500 mg by mouth once daily. glucosamine HCl/chondroitin granger (GLUCOSAMINE-CHONDROITIN) 2,000-1,200 mg/30 mL liqd Take by mouth once daily. Cholecalciferol, Vitamin D3, 25 mcg (1,000 unit) cap Take 2,000 Units by mouth once daily. aspirin 325 mg ORAL tablet Take 1 tablet by mouth once daily. vitamin b complex tab Take 1 tablet by mouth once daily. ascorbic acid, vitamin C, (VITAMIN C) 500 mg tablet Take 1 tablet by mouth once daily. No current facility-administered medications for this visit. ALLERGIES: Patient has no known allergies. PAST MEDICAL HISTORY Diagnosis Date Anxiety and depression Chronic insomnia HTN (hypertension) Obese Primary hypertension RLS (restless legs syndrome) PAST SURGICAL HISTORY Procedure Laterality Date APPENDECTOMY CARPAL TUNNEL Right 08/30/2015 COLONOSCOPY 06/2017 COLONOSCOPY SCREENING 07/14/2017 Dr. Mohan @ [facility]; Ascending colon polyp x1, biopsy- tubular adenoma; recommended repeat in 3 yrs TONSILLECTOMY HX VASECTOMY UNI/BI SPX W/POSTOP SEMEN EXAMS FAMILY HISTORY Problem Relation Age of Onset No Known Problems Mother Leukemia Father No Known Problems Sister Parkinson?s Disease Brother No Known Problems Maternal Grandmother No Known Problems Maternal Grandfather No Known Problems Paternal Grandmother No Known Problems Paternal Grandfather Colon Cancer Daughter Social History Tobacco Use Smoking status: Never Smokeless tobacco: Never Vaping Use Vaping Use: Never used Substance Use Topics Alcohol use: Not Currently Comment: occasionally Drug use: Never REVIEW OF SYMPTOMS: The review of systems data was entered by the nurse and reviewed by co Nursing Notes: Allyson Pollard RN 09/29/2023 3:56 PM Signed REVIEW OF SYSTEMS: General: The patient denies fatigue, denies weight loss, denies weight gain, denies feeling hot, and denies feelings of cold. Eyes: The patient denies glaucoma, denies eye injury/surgery, wears glasses or contacts. Ear/Nose/Throat: The patient denies allergies, denies hayfever, denies ear infections, and denies bloody noses. Cardiovascular: The patient denies chest pain, denies heart disease, NOTES high blood pressure,denies cardiac stent, denies prior heart attack, denies irregular heart beat, denies high cholesterol, denies poor circulation, denies heart failure, other cardiac issues, denies claudication, denies cold feet, denies peripheral arterial stent. Respiratory: The patient denies tuberculosis, denies pneumonia, denies frequent cough, denies pulmonary embolism, denies shortness of breath, and denies coughing up blood. Gastrointestinal: The patient denies difficulty swallowing, denies acid reflux, denies ulcers, denies vomiting, denies jaundice/hepatitis, denies gallbladder problems, denies black or tarry stools, denies hemorrhoids, denies bleeding from rectum, denies diverticulitis, denies constipation, denies diarrhea, denies los (more content not included)... [facility] 09-26-2023 History of Present illness Narrative HISTORY AND PHYSICAL Markus Stratton : 1955 REFERRING PHYSICIAN: Christo Zaragoza [facility] [id number] CHIEF COMPLAINT: Patient presents with: Consult: Colonoscopy consultation HPI: Markus is a 68 year old male referred for endoscopy. Markus notes history of colonic polyps. Patient denies any change in bowel habits, weight changes, blood in stools, black tarry stools or abdominal pain. Refers family history of colon issues.-States his daughter was diagnosed with colon cancer at 21 years old. Markus notes no upper GI complaints. Markus has undergone prior endoscopy. Last colonoscopy was with Dr. Mohan at [facility] in June 2017 Impression: 1. Cecum: Normal appearance no mass lesions normal ileocecal valve. 2. Ascending colon: Normal appearance no mass or lesions. There were 2 small polyps identified both of them removed with snare cautery technique. One of them I nearly completely ablated with my cauterization. There will be much of any pathology report for it. The other one I was able to bring back to the channel of the scope and we should be able to send that off to pathology. 3. Transverse colon: Normal appearance no mass lesions 4. Descending colon: Normal appearance no mass lesions. 5. Sigmoid colon: Normal appearance no mass lesions. 6. Rectum: Normal appearance no mass lesions retroflexion did show some internal hemorrhoidal disease. Pathology: Ascending colon polyp, biopsy: Tubular adenoma Recommendation: Repeat colonoscopy in 3 years Current Outpatient Medications Medication Sig pramipexole (MIRAPEX) 0.5 mg tablet Take 1 tablet by mouth daily at bedtime. lisinopril (ZESTRIL) 5 mg tablet Take 1 tablet by mouth once daily. Zinc 50 mg tab Take 50 mg by mouth once daily. Magnesium Oxide 500 mg tab Take 500 mg by mouth once daily. glucosamine HCl/chondroitin granger (GLUCOSAMINE-CHONDROITIN) 2,000-1,200 mg/30 mL liqd Take by mouth once daily. Cholecalciferol, Vitamin D3, 25 mcg (1,000 unit) cap Take 2,000 Units by mouth once daily. aspirin 325 mg ORAL tablet Take 1 tablet by mouth once daily. vitamin b complex tab Take 1 tablet by mouth once daily. ascorbic acid, vitamin C, (VITAMIN C) 500 mg tablet Take 1 tablet by mouth once daily. No current facility-administered medications for this visit. ALLERGIES: Patient has no known allergies. PAST MEDICAL HISTORY Diagnosis Date Anxiety and depression Chronic insomnia HTN (hypertension) Obese Primary hypertension RLS (restless legs syndrome) PAST SURGICAL HISTORY Procedure Laterality Date APPENDECTOMY CARPAL TUNNEL Right 08/30/2015 COLONOSCOPY 06/2017 COLONOSCOPY SCREENING 07/14/2017 Dr. Mohan @ [facility]; Ascending colon polyp x1, biopsy- tubular adenoma; recommended repeat in 3 yrs TONSILLECTOMY HX VASECTOMY UNI/BI SPX W/POSTOP SEMEN EXAMS FAMILY HISTORY Problem Relation Age of Onset No Known Problems Mother Leukemia Father No Known Problems Sister Parkinson s Disease Brother No Known Problems Maternal Grandmother No Known Problems Maternal Grandfather No Known Problems Paternal Grandmother No Known Problems Paternal Grandfather Colon Cancer Daughter Social History Tobacco Use Smoking status: Never Smokeless tobacco: Never Vaping Use Vaping Use: Never used Substance Use Topics Alcohol use: Not Currently Comment: occasionally Drug use: Never REVIEW OF SYMPTOMS: The review of systems data was entered by the nurse and reviewed by me Nursing Notes: Allyson Pollard RN 09/29/2023 3:56 PM Signed REVIEW OF SYSTEMS: General: The patient denies fatigue, denies weight loss, denies weight gain, denies feeling hot, and denies feelings of cold. Eyes: The patient denies glaucoma, denies eye injury/surgery, wears glasses or contacts. Ear/Nose/Throat: The patient denies allergies, denies hayfever, denies ear infections, and denies bloody noses. Cardiovascular: The patient denies chest pain, denies heart disease, NOTES high blood pressure,denies cardiac stent, denies prior heart attack, denies irregular heart beat, denies high cholesterol, denies poor circulation, denies heart failure, other cardiac issues, denies claudication, denies cold feet, denies peripheral arterial stent. Respiratory: The patient denies tuberculosis, denies pneumonia, denies frequent cough, denies pulmonary embolism, denies shortness of breath, and denies coughing up blood. Gastrointestinal: The patient denies difficulty swallowing, denies acid reflux, denies ulcers, denies vomiting, denies jaundice/hepatitis, denies gallbladder problems, denies black or tarry stools, denies hemorrhoids, denies bleeding from rectum, denies diverticulitis, denies constipation, denies diarrhea, denies loss of stool control, and denies hernias. Kidney/Bladder: The patient denies kidney stones, denies urine infections, and denies bloody urine. Skin: The patient denies a history of skin cancer, denies bleeding/changing moles, and denies a history of skin rash. Neurologic: The patient denies a history of epilepsy/convulsions, denies headaches, denies head/spinal injuries, and denies stroke/TIA. Psychiatric: The patient denies psychiatric medications, NOTES depression, and denies voices, denies substance abuse. Endocrine: The patient denies thyroid disorders, denies diabetes, and denies hormonal problems. Hematologic: The patient denies a history of bruising, denies bleeding, and denies anemia, denies blood clots. Infections: The patient denies a history of measles and mumps, denies rheumatic fever, and denies sexually transmitted diseases. Musculoskeletal: The patient denies back pain/injury, denies back problems, denies sciatica, denies knee/foot trouble, denies arthritis, or denies gout. When was patient's last Mammogram screening? N/A Last Colonoscopy: 2018 Allyson Pollard RN PHYSICAL EXAMINATION: General: The patient is 68 year old, male well nourished, well hydrated in no acute distress. The patient is oriented to time, place, and person. VITALS: Blood pressure 138/72, pulse 74, temperature 36.4 C (97.6 F), height 162.6 cm (5' 4), weight 90.7 kg (200 lb), SpO2 100%. Body mass index is 34.33 kg/m . HEENT: Normal cephalic, ataumatic, pupils are equally round, sclera are anicteric, mucous membranes are moist, oropharynx is clear. Neck has no masses, asymmetry or lymphadenopathy. Respiratory: Clear to auscultation and percussion. Normal respiratory excursion and pattern. Cardiac: Examination is regular rate and rhythm. Normal S1/S2 Abdominal exam: Soft, nontender, with no palpable masses. No hepatosplenomegaly. No palpable hernias. Extremities: no clubbing, cyanosis or edema. No adenopathy. LABORATORY VALUES: As Noted RADIOLOGIC STUDIES: As Noted Assessment IMPRESSION: history of colonic polyps, screen for colon cancer, colon cancer in the first degree relative. PLAN: I have reviewed my findings with the surgeon. Will plan for lower endoscopy. We discussed the risks and benefits of the planned endoscopy. I have informed the patient that complications can occur including failure to complete the endoscopy and perforation. Markus had the opportunity to ask questions concerning the planned endoscopy. My staff has also explained the procedure to the patient in understandable terms and has given the patient printed material concerning the procedure. Markus freely consents to surgery. I plan to use Miralax bowel preparation I have explained to the patient the difference between IV conscious sedation and MAC anesthesia - and I have offered either, according to the patient's wishes. I have explained that with IV conscious sedation there is no anesthesia provider available and therefore there is a limitation of the amount of IV medications that can be given and that the patient may wake up in the middle of the procedure and/or experience pain/discomfort during the procedure. Further discussion was done and the patient was given the opportunity to ask questions and all questions were answered. Markus chooses MAC anesthesia. Last colonoscopy was done under MAC anesthesia at [facility]. The patient states I want to make sure I am OUT. He doesn't want to drive to [place]. We discussed the IV sedation here and he would like to think about where he would like to have scope done. He is going to call into the office once he decides. Carlitos is to hold his aspirin prior to endoscopy. Markus was counseled that if there are changes in his/her medical condition, to let the office know if surgery should proceed. If there are changes in patient's medical condition from time of this encounter to the day of the procedure that preclude anesthesia, patient may have procedure cancelled for patient's safety. Diagnoses: (Z80.0) FH: colon cancer in first degree relative <60 years old (primary encounter diagnosis) (Z86.010) History of colonic polyps Consultation requested by Dr. Warren for an opinion regarding history of colon polyps and colon cancer screening. My final recommendations will be communicated back to the requesting physician by way of shared Medical record. Portions of this documentation were copied and pasted from previous office visit notes in order to provide a cohesive continuity of the history. The note has been reviewed and edited and updated as necessary. Bonny Bains APRN.ADRIENNE documented in this encounter [facility] 09-08-2023 Telephone encounter Note Pt asking for the 5 mg tab to be sent in to the pharmacy. Pt was asking to go without the consult and do just the colonoscopy. I told him based on history of polyps he had to have the consult first. Anna Page MA September 08, 2023 2:15 PM [facility] 09-08-2023 Miscellaneous Notes Pt asking for the 5 mg tab to be sent in to the pharmacy. Pt was asking to go without the consult and do just the colonoscopy. I told him based on history of polyps he had to have the consult first. Anna Page MA September 08, 2023 2:15 PM ??There is a consult for surgery in the chart and looks like he has an appt already sed up on 09/28 Patient called in and saw Dr. Warren and stated that Dr Warren was suppose to put in an order for a consult to see Dr Mohan. I did not see one in patients chart. Please advice as to what we should do. Thank you Gaby Pedersen documented in this encounter [facility] 09-08-2023 Telephone encounter Note ??There is a consult for surgery in the chart and looks like he has an appt already sed up on 09/28 [facility] 09-08-2023 Telephone encounter Note Patient called in and saw Dr. Warren and stated that Dr Warren was suppose to put in an order for a consult to see Dr Mohan. I did not see one in patients chart. Please advice as to what we should do. Thank you Gaby Pedersen [facility] 09-08-2023 Note HNO ID: [id number] Author: CHRISTO WARREN MD Service: ? Author Type: Physician Type: Progress Notes Filed: 09/08/2023 10:41 Note Text: Patient presents with: 6 Month Exam HPI: Patient presents today for office visit for follow up. RLS: Currently taking Pramipexole 0.25 qhs States he thinks the dose is too low Takes around 9pm at night Goes to bed around 11pm Legs still shaking at night. States it's not all the time. Not sleeping well at all No snoring. HTN: Continues on Lisinopril 2.5 mg Does not monitor his BP Denies chest pain and shortness of breath Denies headaches and dizziness Denies palpitations and syncope Denies edema He saw urology in [place] They had ordered a free psa and testicular us and he never did either. No urinary issues. He is slowing down more. Feeling his age His brother has parkinson's No tremor. No cog wheeling. Memory is ok. No falls. No focal numbness or weakness. No headaches. Feels his movements are slower. Has noted having to move the bowels frequently. No diarrhea. No bloody or black stools. Feels it is when he is nervous. Does not feel he worries as much. No depression. MEDICATIONS: Current Outpatient Medications Medication Sig pramipexole (MIRAPEX) 0.25 mg tablet Take 1 tablet by mouth daily at bedtime. lisinopril 2.5 mg tablet Take 1 tablet by mouth once daily. Zinc 50 mg tab Take 50 mg by mouth once daily. Magnesium Oxide 500 mg tab Take 500 mg by mouth once daily. glucosamine HCl/chondroitin granger (GLUCOSAMINE-CHONDROITIN) 2,000-1,200 mg/30 mL liqd Take by mouth once daily. Cholecalciferol, Vitamin D3, 25 mcg (1,000 unit) cap Take 2,000 Units by mouth once daily. aspirin 325 mg ORAL tablet Take 1 tablet by mouth once daily. vitamin b complex tab Take 1 tablet by mouth once daily. ascorbic acid, vitamin C, (VITAMIN C) 500 mg tablet Take 1 tablet by mouth once daily. No current facility-administered medications for this visit. ALLERGIES: ALLERGIES No Known Allergies PAST MEDICAL HISTORY Diagnosis Date Anxiety and depression Chronic insomnia HTN (hypertension) Obese Primary hypertension RLS (restless legs syndrome) PAST SURGICAL HISTORY Procedure Laterality Date APPENDECTOMY CARPAL TUNNEL Right 08/30/2015 COLONOSCOPY 06/2017 COLONOSCOPY SCREENING 07/14/2017 Dr. Mohan @ [facility]; Ascending colon polyp x1, biopsy- tubular adenoma; recommended repeat in 3 yrs TONSILLECTOMY HX VASECTOMY UNI/BI SPX W/POSTOP SEMEN EXAMS FAMILY HISTORY Problem Relation Age of Onset No Known Problems Mother Leukemia Father No Known Problems Sister Parkinson?s Disease Brother No Known Problems Maternal Grandmother No Known Problems Maternal Grandfather No Known Problems Paternal Grandmother No Known Problems Paternal Grandfather Colon Cancer Daughter Social History Tobacco Use Smoking status: Never Smokeless tobacco: Never Vaping Use Vaping Use: Never used Substance Use Topics Alcohol use: Not Currently Comment: occasionally Drug use: Never Reviewed current medications, allergies, past medical history, surgical history, family history and social history today. REVIEW OF SYSTEMS All other reviewed and negative other than HPI. HEALTH MAINTENANCE: Reviewed health maintenance issues today and recommended the following in detail. BP Controlled (<130/80) due on 10/30/2018 Colorectal Cancer Screening due on 12/19/2022 Advance Directive Discussion-daughterAnny is is his surrogate. VITALS: BP 146/82 Pulse 65 Ht 162.6 cm (5' 4) Wt 89.8 kg (198 lb) SpO2 98% BMI 33.99 kg/m? Last 4 Encounter Wt Readings: Date: Wt: 09/08/2023 89.8 kg (198 lb) 03/31/2023 91.3 kg (201 lb 3.2 oz) 02/24/2023 88.9 kg (196 lb) 08/17/2022 93.8 kg (206 lb 12.8 oz) PHYSICAL EXAMINATION: General appearance: Well appearing, alert, in no acute distress, well-hydrated, well nourished. Skin: Skin color, texture, turgor normal, no suspicious rashes or lesions Head: Normocephalic, no masses, lesions, tenderness or abnormalities Neck: Supple, no adenopathy; thyroid symmetric, normal size, no bruits Lungs: Lungs clear to auscultation. No wheezing, rhonchi, rales Heart: RRR without murmur, gallop, or rubs. No ectopy Abdomen: Normal abdominal exam, Abdomen soft, non-tender. Bowel sounds normal. No masses, organomegaly Extremities: No deformities, edema, skin discoloration, clubbing or cyanosis. Good capillary refill. Musculoskeletal: No joint swelling, deformity, or tenderness Peripheral pulses: Normal Neuro: gait is shuffling with slight hunched over his posture, not swinging arms. No definite cogwheeling. No tremor. Given family hx. See neurology ASSESSMENT/PLAN: 1. Essential hypertension - ICD9: 401.9, ICD10: I10 (primary diagnosis) - -increase med - Recommend home blood pressure monitoring, to bring results to next visit - Encouraged sodium restriction, DA (more content not included)... [facility] 09-08-2023 History of Present illness Narrative Patient presents with: 6 Month Exam HPI: Patient presents today for office visit for follow up. RLS: Currently taking Pramipexole 0.25 qhs States he thinks the dose is too low Takes around 9pm at night Goes to bed around 11pm Legs still shaking at night. States it's not all the time. Not sleeping well at all No snoring. HTN: Continues on Lisinopril 2.5 mg Does not monitor his BP Denies chest pain and shortness of breath Denies headaches and dizziness Denies palpitations and syncope Denies edema He saw urology in [place] They had ordered a free psa and testicular us and he never did either. No urinary issues. He is slowing down more. Feeling his age His brother has parkinson's No tremor. No cog wheeling. Memory is ok. No falls. No focal numbness or weakness. No headaches. Feels his movements are slower. Has noted having to move the bowels frequently. No diarrhea. No bloody or black stools. Feels it is when he is nervous. Does not feel he worries as much. No depression. MEDICATIONS: Current Outpatient Medications Medication Sig pramipexole (MIRAPEX) 0.25 mg tablet Take 1 tablet by mouth daily at bedtime. lisinopril 2.5 mg tablet Take 1 tablet by mouth once daily. Zinc 50 mg tab Take 50 mg by mouth once daily. Magnesium Oxide 500 mg tab Take 500 mg by mouth once daily. glucosamine HCl/chondroitin granger (GLUCOSAMINE-CHONDROITIN) 2,000-1,200 mg/30 mL liqd Take by mouth once daily. Cholecalciferol, Vitamin D3, 25 mcg (1,000 unit) cap Take 2,000 Units by mouth once daily. aspirin 325 mg ORAL tablet Take 1 tablet by mouth once daily. vitamin b complex tab Take 1 tablet by mouth once daily. ascorbic acid, vitamin C, (VITAMIN C) 500 mg tablet Take 1 tablet by mouth once daily. No current facility-administered medications for this visit. ALLERGIES: ALLERGIES No Known Allergies PAST MEDICAL HISTORY Diagnosis Date Anxiety and depression Chronic insomnia HTN (hypertension) Obese Primary hypertension RLS (restless legs syndrome) PAST SURGICAL HISTORY Procedure Laterality Date APPENDECTOMY CARPAL TUNNEL Right 08/30/2015 COLONOSCOPY 06/2017 COLONOSCOPY SCREENING 07/14/2017 Dr. Mohan @ [facility]; Ascending colon polyp x1, biopsy- tubular adenoma; recommended repeat in 3 yrs TONSILLECTOMY HX VASECTOMY UNI/BI SPX W/POSTOP SEMEN EXAMS FAMILY HISTORY Problem Relation Age of Onset No Known Problems Mother Leukemia Father No Known Problems Sister Parkinson s Disease Brother No Known Problems Maternal Grandmother No Known Problems Maternal Grandfather No Known Problems Paternal Grandmother No Known Problems Paternal Grandfather Colon Cancer Daughter Social History Tobacco Use Smoking status: Never Smokeless tobacco: Never Vaping Use Vaping Use: Never used Substance Use Topics Alcohol use: Not Currently Comment: occasionally Drug use: Never Reviewed current medications, allergies, past medical history, surgical history, family history and social history today. REVIEW OF SYSTEMS All other reviewed and negative other than HPI. HEALTH MAINTENANCE: Reviewed health maintenance issues today and recommended the following in detail. BP Controlled (<130/80) due on 10/30/2018 Colorectal Cancer Screening due on 12/19/2022 Advance Directive Discussion-daughterAnny is is his surrogate. VITALS: BP 146/82 Pulse 65 Ht 162.6 cm (5' 4) Wt 89.8 kg (198 lb) SpO2 98% BMI 33.99 kg/m Last 4 Encounter Wt Readings: Date: Wt: 09/08/2023 89.8 kg (198 lb) 03/31/2023 91.3 kg (201 lb 3.2 oz) 02/24/2023 88.9 kg (196 lb) 08/17/2022 93.8 kg (206 lb 12.8 oz) PHYSICAL EXAMINATION: General appearance: Well appearing, alert, in no acute distress, well-hydrated, well nourished. Skin: Skin color, texture, turgor normal, no suspicious rashes or lesions Head: Normocephalic, no masses, lesions, tenderness or abnormalities Neck: Supple, no adenopathy; thyroid symmetric, normal size, no bruits Lungs: Lungs clear to auscultation. No wheezing, rhonchi, rales Heart: RRR without murmur, gallop, or rubs. No ectopy Abdomen: Normal abdominal exam, Abdomen soft, non-tender. Bowel sounds normal. No masses, organomegaly Extremities: No deformities, edema, skin discoloration, clubbing or cyanosis. Good capillary refill. Musculoskeletal: No joint swelling, deformity, or tenderness Peripheral pulses: Normal Neuro: gait is shuffling with slight hunched over his posture, not swinging arms. No definite cogwheeling. No tremor. Given family hx. See neurology ASSESSMENT/PLAN: 1. Essential hypertension - ICD9: 401.9, ICD10: I10 (primary diagnosis) - -increase med - Recommend home blood pressure monitoring, to bring results to next visit - Encouraged sodium restriction, DASH or Mediterranean diet - Recommend regular aerobic exercise - Follow up in 4 weeks for hypertension visit - LISINOPRIL 5 MG TABLET 2. Anxiety and depression - ICD9: 300.00, 311, ICD10: F41.9, F32.A - consider meds if worsens. 3. RLS (restless legs syndrome) - ICD9: 333.94, ICD10: G25.81 - increase dose. - PRAMIPEXOLE 0.5 MG TABLET 4. Screening for prostate cancer - ICD9: V76.44, ICD10: Z12. - PROSTATE SPECIFIC ANTIGEN, FREE - PSA/PROSTATE SPECIFIC ANTIGEN SCREENING 5. Elevated PSA - ICD9: 790.93, ICD10: R97.20 - PROSTATE SPECIFIC ANTIGEN, FREE - PSA/PROSTATE SPECIFIC ANTIGEN SCREENING 6. History of colonic polyps - ICD9: V12.72, ICD10: Z86.010 - CONSULT TO GENERAL SURGERY 7. Gait disorder - ICD9: 781.2, ICD10: R26.9 - given family hx rule out parkinson's. - CONSULT TO NEUROLOGY 8. Bradykinesia - ICD9: 781.0, ICD10: R25.8 - CONSULT TO NEUROLOGY Christo Warren MD documented in this encounter [facility] 09-01-2023 Telephone encounter Note Patient asking for a 90 day qty, and also asking for a higher dose as the 0.25 is not working well. Please call with what dosage will be called in. [phone] Patient has been identified by name and date of : Yes Patient phones for refill(s): Requested Prescriptions Pending Prescriptions Disp Refills pramipexole (MIRAPEX) 0.25 mg tablet 30 tablet 5 Sig: Take 1 tablet by mouth daily at bedtime. Date of last office visit in primary care: 02/24/2023 Date of next office visit in primary care: 09/08/2023 Please advise. Thank you. Soledad Butler. [facility] 09-01-2023 Miscellaneous Notes Patient asking for a 90 day qty, and also asking for a higher dose as the 0.25 is not working well. Please call with what dosage will be called in. [phone] Patient has been identified by name and date of : Yes Patient phones for refill(s): Requested Prescriptions Pending Prescriptions Disp Refills pramipexole (MIRAPEX) 0.25 mg tablet 30 tablet 5 Sig: Take 1 tablet by mouth daily at bedtime. Date of last office visit in primary care: 02/24/2023 Date of next office visit in primary care: 09/08/2023 Please advise. Thank you. Soledad Butler. documented in this encounter [facility] 07-29-2023 Telephone encounter Note Patient notified. Verbalized understanding. [facility] 07-29-2023 Miscellaneous Notes Patient notified. Verbalized understanding. No labs needed. Patient calling to request an order for Labs Please advise. Patient is requesting a return call from our office. Date of next visit with PCP 09-08-23 documented in this encounter [facility] 07-29-2023 Telephone encounter Note No labs needed. [facility] 07-29-2023 Telephone encounter Note Patient calling to request an order for Labs Please advise. Patient is requesting a return call from our office. Date of next visit with PCP 09-08-23 [facility] 07-29-2023 Telephone encounter Note Patient has been identified by name and date of : Patient phones for refill(s): Requested Prescriptions Pending Prescriptions Disp Refills lisinopril 2.5 mg tablet 90 tablet 3 Sig: Take 1 tablet by mouth once daily. Date of last office visit in primary care: 02/24/2023 Date of next office visit in primary care: 09/08/2023 Please advise. Thank you. Jessica Sanchez. [facility] 07-29-2023 Miscellaneous Notes Patient has been identified by name and date of : Patient phones for refill(s): Requested Prescriptions Pending Prescriptions Disp Refills lisinopril 2.5 mg tablet 90 tablet 3 Sig: Take 1 tablet by mouth once daily. Date of last office visit in primary care: 02/24/2023 Date of next office visit in primary care: 09/08/2023 Please advise. Thank you. Jessica Sanchez. documented in this encounter [facility] 03-04-2023 Miscellaneous Notes Patient is aware of my recommendations. TC to patient with providers message below. Patient questioning why he needs to have more labs drawn in one month as he had labs done in December as well. This staff reiterated it is helpful in determining cause of bilirubin. Patient states he will think about it because he does not believe in needles. This staff advised that orders are in if patient changes mind. GIOVANNA Waite His repeat cbc is normal. His bilirubin is primarily the unconjugated which is often related to genetic factors that we discussed. To make sure usually I would repeat the albs in one month to make sure. documented in this encounter [facility] 02-28-2023 History of Present illness Narrative Markus Stratton is identified through a medication adherence outreach initiative based on pharmacy claims data from [employer] (insurer) for DAWN medication(s). Patient is reviewed 02/28/23 due to medication adherence concerns with the following medications (name, strength, sig): Lisinopril 2.5mg take 1 tablet every day. Per reconcile dispense, last fill date and days supply: per call to patient picked up 02/25/23 for 90 day Contacted patient: Spoke to patient Patient is identified by Name and . Discussion on adherence consisted of - Patient stated picked up 02/25/23 for 90 day supply Outcome of review/outreach: (choose outcome source and status) - Filled later than 7 days after Next fill date per call to patient/caregiver Xochitl Brown (Travel Sales Consultant) documented in this encounter [facility] 02-24-2023 History of Present illness Narrative Patient presents with: Follow Up HPI: Patient presents today for office visit for follow up. Last seen 01/09/23. Given Gabapentin qhs for RLS. Med was not helping. Started on Pramipexole 0.125mg . Helps somewhat. Sometimes takes 2 tablets instead of one. Would like increase. Having trouble sleeping. Using sleepy time tea, Nyquil, Tylenol PM but still only getting about 4-5hrs of sleep. Was to do repeat labs and did not. Was referred to urology. And did not set it up. No side effects. No gi issues. No gu issues. No chest or shortness of breath. No edema. See previous ov, copied and pasted. Reviewed labs note. He is way overdue for labs. Declined them at last ov. He has been having issues with sleep. Has had issues for some time with RLS Using otc meds. Worse over the last two weeks. Not anxious or depressed. Does has some nocturia but not worse. See note regarding below labs.: Labs ok except. Psa is borderline high. Likely ok but have him see urology. Bilirubin which is one liver enzyme is slightly up. It can be a normal finding in some people. Would recheck it in a few weeks. White count shows some slight changes which is likely ok but would recheck as well Component Latest Ref Rng & Units 01/20/2023 WBC 3.70 - 11.00 k/uL 9.74 RBC 4.20 - 6.00 m/uL 5.64 Hemoglobin 13.0 - 17.0 g/dL 16.6 Hematocrit 39.0 - 51.0 % 49.0 MCV 80.0 - 100.0 fL 86.9 MCH 26.0 - 34.0 pg 29.4 MCHC 30.5 - 36.0 g/dL 33.9 RDW-CV 11.5 - 15.0 % 13.4 Platelet Count 150 - 400 k/uL 268 MPV 9.0 - 12.7 fL 10.6 Neut% % 65.0 Abs Neut (ANC) 1.45 - 7.50 k/uL 6.32 Lymph% % 23.9 Abs Lymph 1.00 - 4.00 k/uL 2.33 Marlboro% % 6.7 Abs Marlboro <0.87 k/uL 0.65 Eosin% % 1.8 Abs Eosin <0.46 k/uL 0.18 Baso% % 1.0 Abs Baso <0.11 k/uL 0.10 Immature Gran % % 1.6 IMMATURE GRANS (ABS) <0.10 k/uL 0.16 (H) NRBC /100 WBC 0.0 Absolute nRBC <0.01 k/uL <0.01 DTYPE Auto Protein, Total 6.3 - 8.0 g/dL 7.3 Albumin 3.9 - 4.9 g/dL 4.7 Calcium 8.5 - 10.2 mg/dL 9.7 Bilirubin, Total 0.2 - 1.3 mg/dL 1.6 (H) Alkaline Phosphatase 38 - 113 U/L 74 AST 14 - 40 U/L 22 ALT 10 - 54 U/L 28 Glucose 74 - 99 mg/dL 102 (H) BUN 9 - 24 mg/dL 14 Creatinine 0.73 - 1.22 mg/dL 1.22 Sodium 136 - 144 mmol/L 139 Potassium 3.7 - 5.1 mmol/L 4.3 Chloride 97 - 105 mmol/L 103 CO2 22 - 30 mmol/L 24 Anion Gap 9 - 18 mmol/L 12 eGFR >=60 mL/min/1.73m 64 Cholesterol, Total <200 mg/dL 172 Triglyceride <150 mg/dL 70 HDL Cholesterol >39 mg/dL 50 Non HDL Cholesterol <130 mg/dL 122 Fasting Time hrs 12 VLDL Cholesterol <30 mg/dL 14 TC:HDL Ratio <5.10 3.44 LDL Cholesterol <100 mg/dL 108 (H) LDL:HDL Ratio <2.54 2.16 Iron 41 - 186 ug/dL 93 TIBC 232 - 386 ug/dL 313 Transferrin Saturation 15.0 - 57.0 % 29.7 TSH 0.270 - 4.200 mIU/L 1.610 PSA Screening <2.60 ng/mL 2.82 (H) Magnesium 1.7 - 2.3 mg/dL 2.2 MEDICATIONS: Current Outpatient Medications Medication Sig pramipexole (MIRAPEX) 0.125 mg tablet Take 1 tablet by mouth daily at bedtime. hydrOXYzine HCl (ATARAX) 25 mg tablet Take 1 tablet by mouth daily at bedtime. May increase to 2 tablets at bedtime if one is not effective. lisinopril 2.5 mg tablet Take 1 tablet by mouth once daily. Zinc 50 mg tab Take 50 mg by mouth once daily. Magnesium Oxide 500 mg tab Take 500 mg by mouth once daily. glucosamine HCl/chondroitin granger (GLUCOSAMINE-CHONDROITIN) 2,000-1,200 mg/30 mL liqd Take by mouth. Cholecalciferol, Vitamin D3, 25 mcg (1,000 unit) cap Take 2,000 Units by mouth once daily. aspirin 325 mg ORAL tablet Take 1 tablet by mouth once daily. vitamin b complex tab Take 1 tablet by mouth once daily. ascorbic acid, vitamin C, (VITAMIN C) 500 mg tablet Take 1 tablet by mouth once daily. No current facility-administered medications for this visit. ALLERGIES: ALLERGIES No Known Allergies PAST MEDICAL HISTORY Diagnosis Date Anxiety and depression HTN (hypertension) Obese PAST SURGICAL HISTORY Procedure Laterality Date APPENDECTOMY CARPAL TUNNEL Right 08/30/2015 COLONOSCOPY 06/2017 COLONOSCOPY SCREENING 07/14/2017 Dr. Mohan @ [facility]; Ascending colon polyp x1, biopsy- tubular adenoma; recommended repeat in 3 yrs TONSILLECTOMY HX VASECTOMY UNI/BI SPX W/POSTOP SEMEN EXAMS FAMILY HISTORY Problem Relation Age of Onset Colon Cancer Daughter Social History Tobacco Use Smoking status: Never Smokeless tobacco: Never Substance Use Topics Alcohol use: Yes Comment: occasionally Drug use: No Reviewed current medications, allergies, past medical history, surgical history, family history and social history today. REVIEW OF SYSTEMS All other reviewed and negative other than HPI. HEALTH MAINTENANCE: Reviewed health maintenance issues today and recommended the following in detail. DTaP,Tdap,Td Vaccine(1 - Tdap) Never done Shingrix Vaccine(1 of 2) Never done RSV Vaccine(1 - 1-dose 60+ series) Never done Pneumococcal Vaccine: 65+(1 - PCV) Never done BP Controlled (<130/80) due on 10/30/2018 Advance Directive Discussion - his daughter, is his dpoa. Influenza Vaccine(1) due on 11/22/2022 Covid-19 Vaccine(4 - season) due on 11/22/2022 Colorectal Cancer Screening -ifobt. VITALS: BP 138/88 Pulse 79 Ht 162.6 cm (5' 4) Wt 88.9 kg (196 lb) SpO2 96% BMI 33.64 kg/m Last 4 Encounter Wt Readings: Date: Wt: 02/24/2023 88.9 kg (196 lb) 08/17/2022 93.8 kg (206 lb 12.8 oz) 03/31/2022 96.2 kg (212 lb) 11/19/2021 89.8 kg (198 lb) PHYSICAL EXAMINATION: General appearance: Well appearing, alert, in no acute distress, well-hydrated, well nourished. Skin: Skin color, texture, turgor normal, no suspicious rashes or lesions Head: Normocephalic, no masses, lesions, tenderness or abnormalities Lungs: Lungs clear to auscultation. No wheezing, rhonchi, rales Heart: RRR without murmur, gallop, or rubs. No ectopy Abdomen: Normal abdominal exam, Abdomen soft, non-tender. Bowel sounds normal. No masses, organomegaly Extremities: No deformities, edema, skin discoloration, clubbing or cyanosis. Good capillary refill. ASSESSMENT/PLAN: 1. RLS (restless legs syndrome) - ICD9: 333.94, ICD10: G25.81 (primary diagnosis) - increase dose of requip. Call if symptoms worsen at all or if not better in one to two weeks 2. Hyperbilirubinemia - ICD9: 782.4, ICD10: E80.6 - recheck labs. 3. Abnormal blood cell count - ICD9: 790.6, ICD10: R79.9 - recheck labs. 4. Elevated PSA - ICD9: 790.93, ICD10: R97.20 - see urologist. 5. Primary hypertension - ICD9: 401.9, ICD10: I10 - Controlled - continue meds. Christo Warren MD documented in this encounter [facility] 02-04-2023 Miscellaneous Notes Pt is asking for an increase in medication. See message below. Thank you. Andreea Thompson LPN Received a prescription request for medication below. Pt asking for an increase in dosage or an increase in tablets. Called pt to see what is going on. Pt reports some times when he goes to bed he takes 1 tablet but his legs just do not calm down and he has to take another tablet. He is down to 4 left. Does not have to take 2 all the time but it is happening more often where he will need to take a total of 2. Please review and advise pt. Patient has been identified by name and date of : Yes, Provider Dr. Warren Date 02/04/23 Time 8:14 am Patient phones for refill(s): Requested Prescriptions Pending Prescriptions Disp Refills pramipexole (MIRAPEX) 0.125 mg tablet 2 Sig: Take 1 tablet by mouth daily at bedtime. Date of last office visit in primary care: 11/19/2021 Date of next office visit in primary care: 02/24/2023 Last 2 Encounter Wt Readings: Date: Wt: 08/17/2022 93.8 kg (206 lb 12.8 oz) 03/31/2022 96.2 kg (212 lb) Previous labs/tests for medication: Not applicable Please advise. Thank you. Andreea Thompson LPN. Patient has been identified by name and date of : Yes Requested Prescriptions Pending Prescriptions Disp Refills pramipexole (MIRAPEX) 0.125 mg tablet 30 tablet 2 Sig: Take 1 tablet by mouth daily at bedtime. RX INSTRUCTIONS: Patient is asking if the dosage can be increased? Please call to discuss. Patient aware RX will be sent to pharmacy. No need to notify patient. Cristal Forbes documented in this encounter [facility] 01-24-2023 History of Present illness Narrative Can do ifobt POPULATION HEALTH NAVIGATION OUTREACH Action/FYI Pt due for colonoscopy Flu shot AD Called and spoke with pt Pt states he did FOBT last year and is willing To do it again Request sent to PCP to approve and send Will discuss other HM with PCP Patient Identified by Name and : YES, via phone Outreach Outcome/Action Spoke to patient / parent / legal guardian: No action required (information or reminder only) Did you use a PCP flex slot to schedule this appointment? N/A Reason for Outreach Care Gap or Scheduling/Wellness visits Payer: Payor: [employer] MEDICARE / Plan: [employer] MEDICARE HMO / Product Type: HMO / Care Gap Reviewed:: Colorectal Cancer Screening Flu Vaccine AD Reminder: Reminder note to check Health Maintenance for items below Health Maintenance items due: DTaP,Tdap,Td Vaccine(1 - Tdap) Never done Shingrix Vaccine(1 of 2) Never done RSV Vaccine(1 - 1-dose 60+ series) Never done Pneumococcal Vaccine: 65+(1 - PCV) Never done BP Controlled (<130/80) due on 10/30/2018 Advance Directive Discussion Never done Influenza Vaccine(1) due on 11/22/2022 Covid-19 Vaccine( season) due on 11/22/2022 Colorectal Cancer Screening due on 12/19/2022 Navigation Signature: Xochitl Justin January 24, 2023 11:28 AM documented in this encounter [facility] 01-24-2023 Miscellaneous Notes Addended by: CHRISTO WARREN on: 01/24/2023 04:49 PM Modules accepted: Orders documented in this encounter [facility] 01-21-2023 Miscellaneous Notes Called pt to schedule neftali., pt stated he will wait to schedule this neftali at a diff time Ok. Make sure we set up below. Phoned patient and given provider's message below with verbalized understanding. Patient agreeable. Patient wants pcp to know he is sleeping now, and feeling a lot better getting sleep. Patient cancelled VV appt stating now that he is sleeping does not need the appt. Labs ok except. Psa is borderline high. Likely ok but have him see urology. Bilirubin which is one liver enzyme is slightly up. It can be a normal finding in some people. Would recheck it in a few weeks. White count shows some slight changes which is likely ok but would recheck as well. documented in this encounter [facility] 01-14-2023 Miscellaneous Notes Patient notified. Verbalized understanding. Does have a virtual follow up on Jan 23. We have to start low. Most importantly I need his labs this week. Make sure has follow up Called pt back and he is asking to please have the prescription sent today if possible to [facility]. He says he is not sleeping and really needs rest. Asking if at anyway possible if he could get RX sent today, he would appreciate it. Patient called , said Gabapentin is not working for RLS and or sleep. Patient said he has a friend that takes Pramipexole 1.5mg he took 2 of them and they work great patient is requesting this too. Please advise documented in this encounter [facility] 01-08-2023 Miscellaneous Notes Patient scheduled for virtual tomorrow at 9:20. Dina Moran That is not something we are permitted to do without evaluation. I would suggest being seen. Can do virtual with me in am while I am at [place] Spoke with patient regarding cancel appt due to michelet call off.. patient states he really doesn't need to be seen just having issues sleeping and just wanted to have provider order sleeping meds. Patient did not want wish to make appt. Please advise. Thank you Betty FORBES documented in this encounter [facility] 01-07-2023 Miscellaneous Notes See triage note. Markus Noemimaria teresa is calling Christo Warren MD today with concern regarding unable to sleep. Patient has not slept for 2 weeks. Patient has been identified by name and birthdate. Duration of symptoms: 2 weeks Person calling: self Call patient at: on cell [phone] (home) [phone] (work) [phone] (cell) Was an appointment scheduled: No Closing statement: Symptom Call: Thank you for calling [facility], your call is very important. A nurse will call in approximately 2-4 hours during business hours. If this is an emergency, please contact 911. Jessica Sanchez documented in this encounter [facility] 01-07-2023 Miscellaneous Notes Patient requesting sleeping pill, has not slept in 2 weeks- only for short periods. Has tried other things (see below). Scheduled 1 st available with pcp tomorrow. Patient declined sooner appt with [facility]. Protocol recommends call pcp w/in 24 hours. Reason for Disposition Requesting medication for sleep (sleeping pill) Answer Assessment - Initial Assessment Questions 1. DESCRIPTION: Hasn't slept in 2 weeks. Has tried melatonin, tylenol pm- doesn't help. 2. ONSET: On off months 3. RECURRENT: Was seen in in July for insomnia- hydroxyzine prescribed and did not help. 4. STRESS: No abdnormal stress or anxiety. 5. PAIN: No. Does have restless legs. 6. 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 Stopped drinking anything with caffeine after 9 pm- has been doing this for a while, and it doesn't make a difference. 7. ALCOHOL USE OR SUBSTANCE USE (DRUG USE): Occasionally maybe 1 drink a week. 8. OTHER SYMPTOMS: No other symptoms. Protocols used: [id number] documented in this encounter [facility] 09-13-2022 History of Present illness Narrative POPULATION HEALTH NAVIGATION OUTREACH Action/ tna Care Gaps 5.30.23 Discuss/Due for: Medicare Wellness Exam, Colorectal Cancer Screening due 12/19/2022, Advance Directives Outcome: 1st attempt - Spoke to patient Patient unable to schedule appointments as at work, will contact the office or request Christo Warren MD office to call in the future Patient Identified by Name and : YES, via phone Outreach Outcome/Action Spoke to patient / parent / legal guardian: Patient will return the call or ask for return call Did you use a PCP flex slot to schedule this appointment? No Reason for Outreach Care Gap or Scheduling/Wellness visits Payer: Payor: [employer] MEDICARE / Plan: [employer] MEDICARE HMO / Product Type: HMO / Care Gap Reviewed:: Annual Wellness visit Colorectal Cancer Screening Reminder: Reminder note to check Health Maintenance for items below Health Maintenance items due: DTAP,TDAP,TD(1 - Tdap) Never done SHINGRIX VACCINE(1 of 2) Never done PNEUMOCOCCAL: 65+(1 - PCV) Never done DIABETES SCREEN due on 08/30/2018 BP CONTROLLED (<130/80) due on 10/30/2018 LIPID SCREEN due on 08/30/2020 COVID-19 VACCINE(4 - Booster for Moderna series) due on 05/26/2021 ADVANCE DIRECTIVE DISCUSSION Never done Navigation Signature: Katrina Tovar MA September 13, 2022 9:54 AM documented in this encounter [facility] 04-05-2022 Miscellaneous Notes Patient reviewed for [employer] Medication Adherence. No refills remain on prescription at pharmacy. Last filled 11/13/21. Please send new rx if pt is to continue taking. Pended the following prescription(s) for review. Requested Prescriptions Pending Prescriptions Disp Refills lisinopril 2.5 mg tablet 90 tablet 3 Sig: Take 1 tablet by mouth once daily. No future appointments. Please review and refill if appropriate. Thank you. Kacy Galeano (ANTERI[employer]) April 05, 2022 10:42 AM documented in this encounter [facility] 04-02-2022 History of Present illness Narrative Markus Stratton is identified through a medication adherence outreach initiative based on pharmacy claims data from [employer] (insurer) for DAWN medication(s). Patient is reviewed 04/02/22 due to medication adherence concerns with the following medications (name, strength): Lisinopril 2.5 mg. Per data report last fill date and days supply: Last filled 11/13/21 for 90 days; due 02/11/22 Per reconcile dispense last fill date and days supply: No recent fill history per reconcile dispense Per call to pharmacy last fill date and days supply: Last filled 11/13/21 for 90 days. No refills remain Any need for new prescription (I.e. out of refills on most recent prescription) YES/NO/Active: yes Outcome of review/outreach: (choose outcome source and status) - Per call to pharmacy, no recent fills. Last fill was in October with no refill on Rx. Sent refill request to PCP to refill if appropriate. Kacy Galeano (ANTERIOS) documented in this encounter [facility] 03-31-2022 History of Present illness Narrative Images from the original note were not included. Subjective HPI HPI Markus Stratton is a 66 year old male who presents today for CC of dental pain. This started few days ago. Has tried otc medication for relief. Symptoms are worsened by nothing. Risk factors hx of dental infections/abscess. .Patient presents with: Mouth/Lip Problem: Gums on right side possible infection PAST MEDICAL HISTORY Diagnosis Date Anxiety and depression HTN (hypertension) Obese PAST SURGICAL HISTORY Procedure Laterality Date APPENDECTOMY CARPAL TUNNEL Right 08/30/2015 COLONOSCOPY 06/2017 COLONOSCOPY SCREENING 07/14/2017 Dr. Mohan @ [facility]; Ascending colon polyp x1, biopsy- tubular adenoma; recommended repeat in 3 yrs TONSILLECTOMY HX VASECTOMY UNI/BI SPX W/POSTOP SEMEN EXAMS ALLERGIES Patient has no known allergies. MEDICATIONS lisinopril 2.5 mg tablet Take 1 tablet by mouth once daily. Zinc 50 mg tab Take 50 mg by mouth once daily. Magnesium Oxide 500 mg tab Take 500 mg by mouth once daily. glucosamine HCl/chondroitin granger (GLUCOSAMINE-CHONDROITIN) 2,000-1,200 mg/30 mL liqd Take by mouth. Cholecalciferol, Vitamin D3, 25 mcg (1,000 unit) cap Take 2,000 Units by mouth once daily. aspirin 325 mg ORAL tablet Take 1 tablet by mouth once daily. vitamin b complex tab Take 1 tablet by mouth once daily. ascorbic acid, vitamin C, (VITAMIN C) 500 mg tablet Take 1 tablet by mouth once daily. FAMILY HISTORY Problem Relation Age of Onset Colon Cancer Daughter Social History Tobacco Use Smoking status: Never Smokeless tobacco: Never Substance Use Topics Alcohol use: Yes Comment: occasionally Drug use: No Review of Systems Constitutional: Negative for fever. Skin: Negative for itching and rash. Objective Blood pressure 120/82, pulse 69, temperature 36.7 C (98 F), resp. rate 16, weight 96.2 kg (212 lb), SpO2 98 %. Physical Exam Constitutional: General: He is not in acute distress. Appearance: He is not toxic-appearing or diaphoretic. HENT: Head: Normocephalic and atraumatic. Mouth/Throat: Pulmonary: Effort: Pulmonary effort is normal. No accessory muscle usage or respiratory distress. Neurological: Mental Status: He is alert and oriented to person, place, and time. ASSESSMENT/PLAN: 1. Tooth ache - ICD9: 525.9, ICD10: K08.89 Take medication as ordered See dentist jen Follow up if signs of infection worsen - AMOXICILLIN 875 MG-POTASSIUM CLAVULANATE 125 MG TABLET Juan Carlos Abebe APRN.CNP documented in this encounter [facility] 12-17-2021 History of Present illness Narrative POPULATION HEALTH NAVIGATION OUTREACH Action/FYI Patient due for Colonoscopy, Flu Vaccine, AD Patient states he is unable to schedule right now and is asking we call another time. Pt identified by name and : YES, via phone Outreach Outcome/Action Spoke to patient or caregiver: Patient will return the call or ask for return call Did you use a PCP flex slot to schedule this appointment? No Reason for Outreach Care Gap or Scheduling/Wellness visits Payer: Payor: AET MEDICARE / Plan: AET MEDICARE HMO / Product Type: HMO / Care Gap Reviewed:: Colorectal Cancer Screening Flu vaccine Reminder: Reminder note to check Health Maintenance for items below Health Maintenance items due: DTAP,TDAP,TD(1 - Tdap) Never done SHINGRIX VACCINE(1 of 2) Never done PNEUMOCOCCAL: 65+(1 - PCV) Never done DIABETES SCREEN due on 08/30/2018 BP CONTROLLED (<130/80) due on 10/30/2018 COLORECTAL CANCER SCREENING due on 07/16/2019 LIPID SCREEN due on 08/30/2020 PROSTATE CANCER SCREENING DISCUSSION due on 08/30/2020 ADVANCE DIRECTIVE DISCUSSION Never done COVID-19 VACCINE(4 - Booster for Moderna series) due on 05/26/2021 INFLUENZA(1) due on 11/22/2021 Message Sent to Practice: No Navigation Signature: Gabriella Forbes December 17, 2021 8:51 AM documented in this encounter [facility] 11-13-2021 Miscellaneous Notes Spoke to pt and he has scheduled physical for 11-19-21. Pt states he will not give blood. Patient has been identified by name and date of : Yes Patient phones for refill(s): Requested Prescriptions Pending Prescriptions Disp Refills lisinopril 2.5 mg tablet 90 tablet 1 Sig: Take 1 tablet by mouth once daily. Date of last office visit in primary care: 05/01/20 next apt 11/19/21 Last 2 Encounter Wt Readings: Date: Wt: 03/12/2021 90.7 kg (200 lb) 01/02/2021 89.6 kg (197 lb 9.6 oz) Previous labs/tests for medication: Blood Pressure: BUN (mg/dL) Date Value 08/31/2015 14 Sodium (mmol/L) Date Value 08/31/2015 141 Last 1 Encounter BP Readings: Date: BP: 03/12/2021 122/72 Thank you. Andreea Thompson LPN Patient phones requesting refills as follows: Requested Prescriptions Pending Prescriptions Disp Refills lisinopril 2.5 mg tablet 90 tablet 1 Sig: Take 1 tablet by mouth once daily. PRATIMA 05/01/20 NOV no upcoming appt *Pt overdue for 40 min Annual appt. message to pt to notify him of the same. Awaiting response. Please review and advise. Seven Melendez LPN documented in this encounter [facility] 05-01-2020 History of Present illness Narrative Radiology Service Progress Note PATIENT NAME: Markus Stratton DATE OF SERVICE: May 01, 2020 TIME: 6:54 PM PATIENT IDENTITY VERIFICATION COMPLETED USING TWO (2) IDENTIFIERS: Name and Date of confirmed by patient verbally. FALL SCREENING: Has the patient had 2 falls in the last year or 1 fall with injury or currently using an Ambulatory Assistive Device (Walker, Cane, Wheelchair, Crutches, etc.)? No PATIENT GENDER DATA: Male PATIENT RELEVANT IMPLANT DATA REVIEWED: Yes RADIOLOGY DEPARTMENT: General X-ray: Exam(s) Completed: Spine X-Ray(s): Lumbar AP / LAT / L5-S1 PERIPHERAL IV DATA: Not applicable SIGNED BY: RT Kateryna May 01, 2020 6:54 PM documented in this encounter [facility] 09-09-2017 History of Past i llness Narrative Problem Noted Date Resolved Date Neck pain 09/09/2017 10/30/2017 Stiffness of left wrist joint 11/28/2015 Pain in right wrist 09/13/2015 10/30/2017 Stress and adjustment reaction 04/07/2014 0 10/30/2017 documented as of this encounter (statuses as of 11/13/2021) [facility]2018 History of Past illness Narrative* Problem Noted Date Resolved Date Neck pain 09/09/2017 10/30/2017 Stiffness of left wrist joint 11/28/2015 Pain in right wrist 09/13/2015 10/30/2017 Stress and adjustment reaction 04/07/2014 0 10/30/2017 documented as of this encounter (statuses as of 12/17/2021) [facility]2018 History of Past illness Narrative* Problem Noted Date Resolved Date Neck pain 09/09/2017 10/30/2017 Stiffness of left wrist joint 11/28/2015 Pain in right wrist 09/13/2015 10/30/2017 Stress and adjustment reaction 04/07/2014 0 10/30/2017 documented as of this encounter (statuses as of 03/31/2022) [facility]2018 History of Past illness Narrative* Problem Noted Date Resolved Date Neck pain 09/09/2017 10/30/2017 Stiffness of left wrist joint 11/28/2015 Pain in right wrist 09/13/2015 10/30/2017 Stress and adjustment reaction 04/07/2014 0 10/30/2017 documented as of this encounter (statuses as of 04/05/2022) [facility]2018 History of Past illness Narrative* Problem Noted Date Resolved Date Neck pain 09/09/2017 10/30/2017 Stiffness of left wrist joint 11/28/2015 Pain in right wrist 09/13/2015 10/30/2017 Stress and adjustment reaction 04/07/2014 0 10/30/2017 documented as of this encounter (statuses as of 04/05/2022) [address]19-2018 History of Past illness Narrative* Problem Noted Date Resolved Date Neck pain 09/09/2017 10/30/2017 Stiffness of left wrist joint 11/28/2015 Pain in right wrist 09/13/2015 10/30/2017 Stress and adjustment reaction 04/07/2014 0 10/30/2017 documented as of this encounter (statuses as of 09/13/2022) [address]2018 History of Past illness Narrative* Problem Noted Date Diagnosed Date Resolved Date Neck pain 09/09/2017 10/30/2017 Stiffness of left wrist joint 11/28/2015 10/30/2017 Pain in right wrist 09/13/2015 10/31/19 18 Stress and adjustment reaction 04/07/2014 10/30/2017 documented as of this encounter (statuses as of 01/07/2023) [address]-2018 History of Past illness Narrative* Problem Noted Date Diagnosed Date Resolved Date Neck pain 09/09/2017 10/30/2017 Stiffness of left wrist joint 11/28/2015 10/30/2017 Pain in right wrist 09/13/2015 10/31/19 18 Stress and adjustment reaction 04/07/2014 10/30/2017 documented as of this encounter (statuses as of 01/08/2023) [address]2018 History of Past illness Narrative* Problem Noted Date Diagnosed Date Resolved Date Neck pain 09/09/2017 10/30/2017 Stiffness of left wrist joint 11/28/2015 10/30/2017 Pain in right wrist 09/13/2015 10/31/19 18 Stress and adjustment reaction 04/07/2014 10/30/2017 documented as of this encounter (statuses as of 01/14/2023) [address]2018 History of Past illness Narrative* Problem Noted Date Diagnosed Date Resolved Date Neck pain 09/09/2017 10/30/2017 Stiffness of left wrist joint 11/28/2015 10/30/2017 Pain in right wrist 09/13/2015 10/31/19 18 Stress and adjustment reaction 04/07/2014 10/30/2017 documented as of this encounter (statuses as of 01/25/2023) [address]2018 History of Past illness Narrative* Problem Noted Date Diagnosed Date Resolved Date Neck pain 09/09/2017 10/30/2017 Stiffness of left wrist joint 11/28/2015 10/30/2017 Pain in right wrist 09/13/2015 10/31/19 18 Stress and adjustment reaction 04/07/2014 10/30/2017 documented as of this encounter (statuses as of 02/04/2023) [address]2018 History of Past illness Narrative* Problem Noted Date Diagnosed Date Resolved Date Neck pain 09/09/2017 10/30/2017 Stiffness of left wrist joint 11/28/2015 10/30/2017 Pain in right wrist 09/13/2015 10/31/19 18 Stress and adjustment reaction 04/07/2014 10/30/2017 documented as of this encounter (statuses as of 02/14/2023) [address]2018 History of Past illness Narrative* Problem Noted Date Diagnosed Date Resolved Date Neck pain 09/09/2017 10/30/2017 Stiffness of left wrist joint 11/28/2015 10/30/2017 Pain in right wrist 09/13/2015 10/31/19 18 Stress and adjustment reaction 04/07/2014 10/30/2017 documented as of this encounter (statuses as of 02/25/2023) [address]2018 History of Past illness Narrative* Problem Noted Date Diagnosed Date Resolved Date Neck pain 09/09/2017 10/30/2017 Stiffness of left wrist joint 11/28/2015 10/30/2017 Pain in right wrist 09/13/2015 10/31/19 18 Stress and adjustment reaction 04/07/2014 10/30/2017 documented as of this encounter (statuses as of 02/28/2023) [address]2018 History of Past illness Narrative* Problem Noted Date Diagnosed Date Resolved Date Neck pain 09/09/2017 10/30/2017 Stiffness of left wrist joint 11/28/2015 10/30/2017 Pain in right wrist 09/13/2015 10/31/19 18 Stress and adjustment reaction 04/07/2014 10/30/2017 documented as of this encounter (statuses as of 03/05/2023) [facility] [place] [facility] Diagnosis Essential hypertension Unspecified essential hypertension [facility] [place] [facility] Diagnosis Tooth ache- Primary [facility] [place] [facility]* Diagnosis Essential hypertension Unspecified essential hypertension [facility] [place] [facility]* Diagnosis Screening for colon cancer- Primary Special screening for malignant neoplasms, colon documented in this encounter [facility] note* Diagnosis Hyperbilirubinemia- Primary Jaundice, unspecified, not of Abnormal blood cell count Elevated PSA Elevated prostate specific antigen (PSA) documented in this encounter [facility] note* Diagnosis RLS (restless legs syndrome)- Primary Restless legs syndrome (RLS) Hyperbilirubinemia Jaundice, unspecified, not of Abnormal blood cell count Elevated PSA Elevated prostate specific antigen (PSA) Primary hypertension Unspecified essential hypertension [facility] [place] [facility]* Diagnosis Hyperbilirubinemia- Primary Jaundice, unspecified, not of [facility] [place] [facility]* Diagnosis Essential hypertension Unspecified essential hypertension documented in this encounter [facility] note* Diagnosis Essential hypertension- Primary Unspecified essential hypertension Anxiety and depression Dysthymic disorder RLS (restless legs syndrome) Restless legs syndrome (RLS) Screening for prostate cancer Special screening for malignant neoplasm of prostate Elevated PSA Elevated prostate specific antigen (PSA) History of colonic polyps Personal history of colonic polyps Gait disorder Abnormality of gait Bradykinesia Abnormal involuntary movements [facility] [place] [facility]* Diagnosis Essential hypertension Unspecified essential hypertension documented in this encounter [facility] note* Diagnosis FH: colon cancer in first degree relative <60 years old- Primary History of colonic polyps Personal history of colonic polyps [facility] [place] [facility]* Diagnosis Essential hypertension- Primary Unspecified essential hypertension [facility] [place] [facility]* Diagnosis Acute otitis media, right- Primary Unspecified otitis media Acute cough [facility] [place] [facility]* Diagnosis Acute cough- Primary Essential hypertension Unspecified essential hypertension [facility] [place] [facility]* Diagnosis Essential hypertension- Primary Unspecified essential hypertension [facility] [place] [facility]* Diagnosis Parkinson's disease without dyskinesia or fluctuating manifestations (HCC)- Primary [facility] [place] [facility]* Diagnosis Pain of left calf Pain in limb [facility] [place] [facility]* Diagnosis Screening for malignant neoplasm of prostate- Primary Elevated PSA Elevated prostate specific antigen (PSA) Essential hypertension Unspecified essential hypertension documented in this encounter [facility] note* Diagnosis RLS (restless legs syndrome) Restless legs syndrome (RLS) documented in this encounter [facility] note* Diagnosis Essential hypertension- Primary Unspecified essential hypertension Anxiety and depression Dysthymic disorder Parkinson's disease, unspecified whether dyskinesia present, unspecified whether manifestations fluctuate (HCC) History of colonic polyps Personal history of colonic polyps documented in this encounter [facility] note* Diagnosis Parkinson's disease without dyskinesia or fluctuating manifestations (HCC)- Primary RLS (restless legs syndrome) Restless legs syndrome (RLS) documented in this encounter [facility] note* Diagnosis Bronchitis- Primary Bronchitis, not specified as acute or chronic documented in this encounter [facility] note* Diagnosis Parkinson's disease without dyskinesia or fluctuating manifestations (HCC)- Primary RLS (restless legs syndrome) Restless legs syndrome (RLS) documented in this encounter [facility] note* Diagnosis Posture abnormality- Primary Abnormal posture Parkinson's disease without dyskinesia or fluctuating manifestations (HCC) documented in this encounter [facility] Reason for Referral Specialty Diagnoses / Procedures Referred By Jesús henson Referred To Contact Urology Diagnoses Elevated PSA Procedures CONSULT TO UROLOGY OFFICE/OUTPATIENT [facility] 60-[place] [address] [place] [id number] Referral ID Status Reason Start Date Expiration Date Visits Requested Visits Authorized [id number] Authorized PCP Requested Referral 01/20/2024 1 1 Specialty Diagnoses / Procedures Referred By Jesús henson Referred To Contact Neurology Diagnoses Gait disorder Bradykinesia Procedures CONSULT TO NEUROLOGY OFFICE/OUTPATIENT [facility] 60 MINUTES Christo Warren MD [address] [place] [address] Referral ID Status Reason Start Date Expiration Date Visits Requested Visits Authorized [id number] Pending Review PCP Requested Referral 09/08/2023 09/07/2024 1 1 Specialty Diagnoses / Procedures Referred By Jesús henson Referred To Contact General Surgery / FAMILY MEDICINE Diagnoses History of colonic polyps Procedures CONSULT TO GENERAL SURGERY OFFICE/OUTPATIENT [facility] 60 [place] [address] [place] [id number] [address] [facility] [address] [place] [address] Referral ID Status Reason Start Date Expiration Date Visits Requested Visits Authorized [id number] Authorized PCP Requested Referral 03/24/2023 03/23/2024 1 1 Specialty Diagnoses / Procedures Referred By Contac t Referred To Contact [facility] Diagnoses Parkinson's disease without dyskinesia or fluctuating manifestations (HCC) Procedures CONSULT TO [facility] EVAL HIGH COMPLEX 60 MINS Nikki Javier MD [address] [place] [address] [facility] [address] [address] Referral ID Status Reason Start Date Expiration Date Visits Requested Visits Authorized [id number] Pending Review Auto-Generat ed Referral 11/17/2023 11/16/2024 1 1 Specialty Diagnoses / Procedures Referred By Contac t Referred To Contact [facility] Diagnoses Parkinson's disease without dyskinesia or fluctuating manifestations (HCC) Procedures CONSULT TO PHYSICAL THERAPY PHYSICAL THERAPY EVALUATION HIGH COMPLEX 45 MINS Nikki Javier MD [address] [place] [address] [address] Referral ID Status Reason Start Date Expiration Date Visits Requested Visits Authorized [id number] Pending Review Auto-Generat ed Referral 11/17/2023 11/16/2024 1 1 Summary Purpose Family History No Family History Records FoundNo Family History Records FoundNo Family History Records FoundNo Family History Records Found Advance Directives No Advanced Directives Records FoundNo Advanced Directives Records FoundNo Advanced Directives Records FoundNo Advanced Directives Records Found Additional Source Comments Source Comments (unrecognize d section and content) In the event this informatio n is protected by the Federal Confidentiality of Alcohol and Drug Abuse Patient Records regulations: The Federal rules restrict any use of the information to criminally investigate or prosecute any alcohol or drug abuse patient.[facility] the event this information is protected by the Federal Confidentiality of Alcohol and Drug Abuse Patient Records regulations: The Federal rules restrict any use of the information to criminally investigate or prosecute any alcohol or drug abuse patient.[facility] the event this information is protected by the Federal Confidentiality of Alcohol and Drug Abuse Patient Records regulations: The Federal rules restrict any use of the information to criminally investigate or prosecute any alcohol or drug abuse patient.[facility] the event this information is protected by the Federal Confidentiality of Alcohol and Drug Abuse Patient Records regulations: The Federal rules restrict any use of the information to criminally investigate or prosecute any alcohol or drug abuse patient.[facility] the event this information is protected by the Federal Confidentiality of Alcohol and Drug Abuse Patient Records regulations: The Federal rules restrict any use of the information to criminally investigate or prosecute any alcohol or drug abuse patient.[facility] the event this information is protected by the Federal Confidentiality of Alcohol and Drug Abuse Patient Records regulations: The Federal rules restrict any use of the information to criminally investigate or prosecute any alcohol or drug abuse patient.[facility] the event this information is protected by the Federal Confidentiality of Alcohol and Drug Abuse Patient Records regulations: The Federal rules restrict any use of the information to criminally investigate or prosecute any alcohol or drug abuse patient.[facility] the event this information is protected by the Federal Confidentiality of Alcohol and Drug Abuse Patient Records regulations: The Federal rules restrict any use of the information to criminally investigate or prosecute any alcohol or drug abuse patient.[facility] the event this information is protected by the Federal Confidentiality of Alcohol and Drug Abuse Patient Records regulations: The Federal rules restrict any use of the information to criminally investigate or prosecute any alcohol or drug abuse patient.[facility] the event this information is protected by the Federal Confidentiality of Alcohol and Drug Abuse Patient Records regulations: The Federal rules restrict any use of the information to criminally investigate or prosecute any alcohol or drug abuse patient.[facility] the event this information is protected by the Federal Confidentiality of Alcohol and Drug Abuse Patient Records regulations: The Federal rules restrict any use of the information to criminally investigate or prosecute any alcohol or drug abuse patient.[facility] the event this information is protected by the Federal Confidentiality of Alcohol and Drug Abuse Patient Records regulations: The Federal rules restrict any use of the information to criminally investigate or prosecute any alcohol or drug abuse patient.[facility] the event this information is protected by the Federal Confidentiality of Alcohol and Drug Abuse Patient Records regulations: The Federal rules restrict any use of the information to criminally investigate or prosecute any alcohol or drug abuse patient.[facility] the event this information is protected by the Federal Confidentiality of Alcohol and Drug Abuse Patient Records regulations: The Federal rules restrict any use of the information to criminally investigate or prosecute any alcohol or drug abuse patient.[facility] the event this information is protected by the Federal Confidentiality of Alcohol and Drug Abuse Patient Records regulations: The Federal rules restrict any use of the information to criminally investigate or prosecute any alcohol or drug abuse patient.[facility] the event this information is protected by the Federal Confidentiality of Alcohol and Drug Abuse Patient Records regulations: The Federal rules restrict any use of the information to criminally investigate or prosecute any alcohol or drug abuse patient.[facility] the event this information is protected by the Federal Confidentiality of Alcohol and Drug Abuse Patient Records regulations: The Federal rules restrict any use of the information to criminally investigate or prosecute any alcohol or drug abuse patient.[facility] the event this information is protected by the Federal Confidentiality of Alcohol and Drug Abuse Patient Records regulations: The Federal rules restrict any use of the information to criminally investigate or prosecute any alcohol or drug abuse patient.[facility] the event this information is protected by the Federal Confidentiality of Alcohol and Drug Abuse Patient Records regulations: The Federal rules restrict any use of the information to criminally investigate or prosecute any alcohol or drug abuse patient.[facility] HospitalIn the event this information is protected by the Federal Confidentiality of Alcohol and Drug Abuse Patient Records regulations: The Federal rules restrict any use of the information to criminally investigate or prosecute any alcohol or drug abuse patient.[facility] HospitalIn the event this information is protected by the Federal Confidentiality of Alcohol and Drug Abuse Patient Records regulations: The Federal rules restrict any use of the information to criminally investigate or prosecute any alcohol or drug abuse patient.[facility] HospitalIn the event this information is protected by the Federal Confidentiality of Alcohol and Drug Abuse Patient Records regulations: The Federal rules restrict any use of the information to criminally investigate or prosecute any alcohol or drug abuse patient.[facility] HospitalIn the event this information is protected by the Federal Confidentiality of Alcohol and Drug Abuse Patient Records regulations: The Federal rules restrict any use of the information to criminally investigate or prosecute any alcohol or drug abuse patient.[facility] HospitalIn the event this information is protected by the Federal Confidentiality of Alcohol and Drug Abuse Patient Records regulations: The Federal rules restrict any use of the information to criminally investigate or prosecute any alcohol or drug abuse patient.[facility] HospitalIn the event this information is protected by the Federal Confidentiality of Alcohol and Drug Abuse Patient Records regulations: The Federal rules restrict any use of the information to criminally investigate or prosecute any alcohol or drug abuse patient.[facility] HospitalIn the event this information is protected by the Federal Confidentiality of Alcohol and Drug Abuse Patient Records regulations: The Federal rules restrict any use of the information to criminally investigate or prosecute any alcohol or drug abuse patient.[facility] HospitalIn the event this information is protected by the Federal Confidentiality of Alcohol and Drug Abuse Patient Records regulations: The Federal rules restrict any use of the information to criminally investigate or prosecute any alcohol or drug abuse patient.[facility] HospitalIn the event this information is protected by the Federal Confidentiality of Alcohol and Drug Abuse Patient Records regulations: The Federal rules restrict any use of the information to criminally investigate or prosecute any alcohol or drug abuse patient.[facility] HospitalIn the event this information is protected by the Federal Confidentiality of Alcohol and Drug Abuse Patient Records regulations: The Federal rules restrict any use of the information to criminally investigate or prosecute any alcohol or drug abuse patient.[facility] HospitalIn the event this information is protected by the Federal Confidentiality of Alcohol and Drug Abuse Patient Records regulations: The Federal rules restrict any use of the information to criminally investigate or prosecute any alcohol or drug abuse patient.[facility] HospitalIn the event this information is protected by the Federal Confidentiality of Alcohol and Drug Abuse Patient Records regulations: The Federal rules restrict any use of the information to criminally investigate or prosecute any alcohol or drug abuse patient.[facility] HospitalIn the event this information is protected by the Federal Confidentiality of Alcohol and Drug Abuse Patient Records regulations: The Federal rules restrict any use of the information to criminally investigate or prosecute any alcohol or drug abuse patient.[facility] HospitalIn the event this information is protected by the Federal Confidentiality of Alcohol and Drug Abuse Patient Records regulations: The Federal rules restrict any use of the information to criminally investigate or prosecute any alcohol or drug abuse patient.[facility] HospitalIn the event this information is protected by the Federal Confidentiality of Alcohol and Drug Abuse Patient Records regulations: The Federal rules restrict any use of the information to criminally investigate or prosecute any alcohol or drug abuse patient.[facility] HospitalIn the event this information is protected by the Federal Confidentiality of Alcohol and Drug Abuse Patient Records regulations: The Federal rules restrict any use of the information to criminally investigate or prosecute any alcohol or drug abuse patient.[facility] HospitalIn the event this information is protected by the Federal Confidentiality of Alcohol and Drug Abuse Patient Records regulations: The Federal rules restrict any use of the information to criminally investigate or prosecute any alcohol or drug abuse patient.[facility] HospitalIn the event this information is protected by the Federal Confidentiality of Alcohol and Drug Abuse Patient Records regulations: The Federal rules restrict any use of the information to criminally investigate or prosecute any alcohol or drug abuse patient.[facility] HospitalIn the event this information is protected by the Federal Confidentiality of Alcohol and Drug Abuse Patient Records regulations: The Federal rules restrict any use of the information to criminally investigate or prosecute any alcohol or drug abuse patient.[facility] HospitalIn the event this information is protected by the Federal Confidentiality of Alcohol and Drug Abuse Patient Records regulations: The Federal rules restrict any use of the information to criminally investigate or prosecute any alcohol or drug abuse patient.[facility]In the event this information is protected by the Federal Confidentiality of Alcohol and Drug Abuse Patient Records regulations: The Federal rules restrict any use of the information to criminally investigate or prosecute any alcohol or drug abuse patient.[facility] HospitalIn the event this information is protected by the Federal Confidentiality of Alcohol and Drug Abuse Patient Records regulations: The Federal rules restrict any use of the information to criminally investigate or prosecute any alcohol or drug abuse patient.[facility] HospitalIn the event this information is protected by the Federal Confidentiality of Alcohol and Drug Abuse Patient Records regulations: The Federal rules restrict any use of the information to criminally investigate or prosecute any alcohol or drug abuse patient.[facility] HospitalIn the event this information is protected by the Federal Confidentiality of Alcohol and Drug Abuse Patient Records regulations: The Federal rules restrict any use of the information to criminally investigate or prosecute any alcohol or drug abuse patient.[facility] HospitalIn the event this information is protected by the Federal Confidentiality of Alcohol and Drug Abuse Patient Records regulations: The Federal rules restrict any use of the information to criminally investigate or prosecute any alcohol or drug abuse patient.[facility] Reason for Visit (unrecogniz ed section and content) Reason Onset Date Comments Refill Request 11/07/2021 Reason Onset Date Comments Population Health Navigation Outreach 12/17/2021 [employer] Care Gaps Reason Comments Mouth/Lip Problem Gums on right side p ossible infection Reason Onset Date Comments Allied Health Visit 04/02/2022 Medication A dherence Outreach Reason Onset Date Comments Refill Request 04/05/2022 Reason Onset Date Comments Population Health Navigation Outreach 09/13/2022 [employer] Care Gaps 5.30.23 Reason Comments Sleep Problem Reason Onset Date Comments unable to sleep 01/07/2023 Reason Comments Medication Problem Gabapentin Reason Onset Date Comments Population Health Navigation Outreach 01/24/2023 [employer] care gaps Reason Onset Date Comments Refill Request 02/03/2023 SEE RX NOTES Reason Comments Results Reason Comments Follow Up Reason Comments Results Reason Onset Date Comments Refill Request 07/29/2023 Reason Comments Lab Orders Reason Onset Date Comments Medication Question 09/01/2023 Reason Comments 6 Month Exam Reason Comments Patient Question Reason Comments Consult Colonoscopy consulta tion Specialty Diagnoses / Procedures Referred By Contbree t Referred To Contact General Surgery / FAMILY MEDICINE Diagnoses History of colonic polyps Procedures CONSULT TO GENERAL SURGERY OFFICE/OUTPATIENT [facility] MDM 60 MINUTES Christo Warren MD [address] [place] [address] [facility] [address] [place] [address] Referral ID Status Reason Start Date Expiration Date V isits Requested Visits Authorized [id number] Closed PCP Requested Referral 03/24/2023 03/23/2024 1 1 Reason Comments Cough Cough, stomach hurts , runny nose x 4 days Reason Comments runny nose, cough Requesting another a ntibiotic Reason Comments nurse visit bp check Reason Comments Blood Pressure Check Reason Comments Consult Specialty Diagnoses / Procedures Referred By Jesús t Referred To Contact Neurology / FAMILY MEDICINE Diagnoses Gait disorder Bradykinesia Procedures CONSULT TO NEUROLOGY OFFICE/OUTPATIENT [facility] MDM 60 MINUTES Christo Warren MD [address] [place] [address] [facility] [address] [place] [address] Referral ID Status Reason Start Date Expiration Date V isits Requested Visits Authorized [id number] Closed PCP Requested Referral 10/22/2023 03/23/2024 1 1 Reason Comments Orders Reason Comments Appointment Reason Comments Refill Request Reason Comments 6 Month Exam Reason Comments Cough Nasal congestion/nilson inage all x 1 1/2 weeks Reason Onset Date Comments Population Health Navigation Outreach 05/06/2024 [employer] High Risk Attempt #1 Reason Comments Patient Request Reason Comments Follow Up Parkinson's disease without dyskinesia or fluctuating manifestations Reason Comments Patient Update Reason Comments PT Eval Specialty Diagnoses / Procedures Referred By Jesús henson Referred To Contact PHYSICAL THERAPY Diagnoses Parkinson's disease without dyskinesia or fluctuating manifestations (HCC) Procedures CONSULT TO PHYSICAL THERAPY PHYSICAL THERAPY EVALUATION HIGH COMPLEX 45 MINS Nikki Javier MD Phone: tel: fax: Mis Montgomery, PT [address] [place] [address] Phone: tel: Referral ID Status Reason Start Date Expiration Date Visits Requested Visits Authorized [id number] Authorized Auto-Generat ed Referral 08/05/2024 03/23/2025 99 99 Reason Onset Date Comments Population Health Navigation Outreach 09/08/2024 [employer] [facility] (unrecognized sec tion and content) Neon Sign Installer Relationship Specialty Start Date End Date Christo Warren MD [address] [place], [place] [id number] PCP - General Family Practice 8/9/18 Neon Sign Installer Relationship Specialty Start Date End Date Christo Warren MD [address] [facility] [place] [place] [address] PCP - General Family Medicine 10/30/17 Neon Sign Installer Relationship Specialty Start Date End Date Christo Warren MD [address] [facility] [place] [place] [address] PCP - General Family Medicine 10/30/17 Neon Sign Installer Relationship Specialty Start Date End Date Christo Warren MD [address] [facility] [place] [place] [address] PCP - General Family Medicine 10/30/17 Neon Sign Installer Relationship Specialty Start Date End Date Christo Warren MD [address] [facility] [place] [place] [address] PCP - General Family Medicine 10/30/17 Neon Sign Installer Relationship Specialty Start Date End Date Christo Warren MD [address] [facility] [place] [place] [address] PCP - General Family Medicine 10/30/17 Neon Sign Installer Relationship Specialty Start Date End Date Christo Warren MD [address] [facility] [place] [place] [address] PCP - General Family Medicine 10/30/17 Neon Sign Installer Relationship Specialty Start Date End Date Christo Warren MD [address] [facility] [place] [place] [address] PCP - General Family Medicine 10/30/17 Neon Sign Installer Relationship Specialty Start Date End Date Christo Warren MD [address] [facility] [place] [place] [address] PCP - General Family Medicine 10/30/17 Neon Sign Installer Relationship Specialty Start Date End Date Christo Warren MD [address] [facility] [place] [place] [address] PCP - General Family Medicine 10/30/17 Neon Sign Installer Relationship Specialty Start Date End Date Christo Warren MD [address] [facility] [place] [place] [address] PCP - General Family Medicine 10/30/17 Neon Sign Installer Relationship Specialty Start Date End Date Christo Warren MD [address] [facility] [place] [place] [address] PCP - General Family Medicine 10/30/17 Neon Sign Installer Relationship Specialty Start Date End Date Christo Warren MD [address] [facility] [place] [place] [address] PCP - General Family Medicine 10/30/17 Neon Sign Installer Relationship Specialty Start Date End Date Christo Warren MD [address] [facility] [place] [place] [address] PCP - General Family Medicine 10/30/17 Neon Sign Installer Relationship Specialty Start Date End Date Christo Warren MD [address] [facility] [place] [place] [address] PCP - General Family Medicine 10/30/17 Neon Sign Installer Relationship Specialty Start Date End Date Christo Warren MD [address] [facility] [place] [place] [address] PCP - General Family Medicine 10/30/17 Neon Sign Installer Relationship Specialty Start Date End Date Christo Warren MD [address] [facility] [place] [place] [address] PCP - General Family Medicine 10/30/17 Neon Sign Installer Relationship Specialty Start Date End Date Christo Warren MD [address] [facility], [place] [address] PCP - General Family Medicine 10/30/17 Neon Sign Installer Relationship Specialty Start Date End Date Christo Warren MD [address] [facility], [place] [address] PCP - General Family Medicine 10/30/17 Neon Sign Installer Relationship Specialty Start Date End Date Christo Warren MD [address] [facility] [place] [place] [address] PCP - General Family Medicine 10/30/17 Neon Sign Installer Relationship Specialty Start Date End Date Christo Warren MD [address] [facility] [place] [place] [address] PCP - General Family Medicine 10/30/17 Hermelinda Goldman APRN.LANDING SUPPORT SPECIALIST [address] [facility] [place] [address] [employer] Family Medicine 03/01/24 Palak Jimenez APRN.LANDING SUPPORT SPECIALIST [address] [facility] [place] [place] [address] [employer] Family Medicine 03/01/24 Neon Sign Installer Relationship Specialty Start Date End Date Christo Warren MD [address] [facility] [place] [place] [address] PCP - General Family Medicine 10/30/17 Hermelinda Goldman APRN.LANDING SUPPORT SPECIALIST [address] [facility] [place] [address] [employer] Family Medicine 03/01/24 Palak Jimenez APRN.LANDING SUPPORT SPECIALIST [address] [facility] [place] [place] [address] [employer] Family Medicine 03/01/24 Neon Sign Installer Relationship Specialty Start Date End Date Christo Warren MD [address] [place] [address] PCP - General Family Medicine 10/30/17 Hermelinda Goldman, ELECTRONIC TESTER.LANDING SUPPORT SPECIALIST [address] [facility] [place] [address] [employer] Family Medicine 03/01/24 Palak Jimenez APRN.LANDING SUPPORT SPECIALIST [address] [facility] [place] [place] [address] Fin[facility] Special [facility]ocksUnity[facility] 03/01/24 Neon Sign Installer Relationship Specialty Start Date End Date Christo Warren MD [address] [facility] [place] [place] [address] PCP - General Family Medicine 10/30/17 Hermelinda Goldman ELECTRONIC TESTER.LANDING SUPPORT SPECIALIST [address] [facility] [place] [address] [employer] Family Medicine 03/01/24 Palak Jimenez ELECTRONIC TESTER.LANDING SUPPORT SPECIALIST [address] [facility] [place] [place] [address] [employer] Family Medicine 03/01/24 Neon Sign Installer Relationship Specialty Start Date End Date Christo Warren MD [address] [facility] [place] [address] PCP - General Family Medicine 10/30/17 Hermelinda Goldman, ELECTRONIC TESTER.LANDING SUPPORT SPECIALIST [address] [facility] [place] [address] [employer] Family [facility] 03/01/24 Palak Jimenez APRN.LANDING SUPPORT SPECIALIST [address] [place] [address] [facility] 03/[facility]/24 Neon Sign Installer Relationship Specialty Start Date End Date Christo Warren MD [address] [place] [address] PCP - General Family Medicine 10/30/17 Hermelinda Goldman APRN.LANDING SUPPORT SPECIALIST [address] [place] [address] [facility] 03/01/24 Palak Jimenez APRN.LANDING SUPPORT SPECIALIST [address] [place] [address] [facility] 03/01/24 Neon Sign Installer Relationship Specialty Start Date End Date Christo Warren MD [address] [place] [address] PCP - General Family Medicine 10/30/17 Hermelinda Goldman APRN.LANDING SUPPORT SPECIALIST [address] [place] [address] [facility] 03/01/24 Palak Jimenez ELECTRONIC TESTER.LANDING SUPPORT SPECIALIST [address] [place] [address] [facility] 03/01/24 Neon Sign Installer Relationship Specialty Start Date End Date Christo Warren MD [address] [place] [address] PCP - General Family Medicine 10/30/17 Hermelinda Goldman APRN.LANDING SUPPORT SPECIALIST [address] [place], [place] [address] [facility] 03/01/24 Palak Jimenez APRN.LANDING SUPPORT SPECIALIST [address] [place], [place] [address] [facility] 03/01/24 (unrecognized sect ion and content) No Status Records FoundNo Status Records FoundNo Status Records FoundNo Status Records Found INFORMATION SOURCE (unrecogn ized section and content) DATE CREATED AUTHOR 03/16/2024 [facility] DATE CREATED AUTHOR AUTHOR'S ORGANIZ ATION 05/03/2024 [facility] DATE CREATED AUTHOR AUTHOR'S ORGANIZ ATION 08/21/2024 [facility] DATE CREATED AUTHOR AUTHOR'S ORGANIZ ATION 09/08/2024 [facility] FOR RECORDS PERTAINING TO PATIENTS WHO ARE OR HAVE BEEN ENROLLED IN A CHEMICAL DEPENDENCY/SUBSTANCEABUSE PROGRAM, SOME INFORMATION MAY BE OMITTED. This clinical summary was aggregated from multiple sources. Caution should be exercised in using it in the provision of clinical care. This summary normalizes information from multiple sources, and as a consequence, information in this document may materially change the coding, format and clinical context of patient data. In addition, data may be omitted in some cases. CLINICAL DECISIONS SHOULD BE BASED ON THE PRIMARY CLINICAL RECORDS. [employer] provides no warranty or guarantee of the accuracy or completeness of information in this document.
--- NOTE | 2024-09-10 01:00 | HP.PCM.HOS_ITS ---
HPI - General General Date of Admission: 09/10/24 Date of Service: 09/10/24 Chief Complaint: Fever and AMS. HPI Narrative ATIYA SMITH, is a 69 M with a past medical history of hyperlipidemia; on atorvastatin, obesity; with BMI of 34.5 this admission, Parkinson's disease; on carbidopa-levodopa and pramipexole, history of colonic polyps; s/p polypectomy (2018), history of CTS; s/p bilateral release and OA who presents to [facility] ER complaining of fever and altered mental status. Mr. Smith is not a fully-reliable historian at this time so information was gathered from chart, medical staff, computer and his daughter at the bedside. According to the records he became sick approximately 1-1/2 days ago with fever and malaise followed by intermittent bladder spasms. Then later on the evening of September 09, 2024 he became acutely confused unable to speak prompting his family to bring him in for further evaluation and treatment. In the ER he was noted to have a UA positive for Acute Cystitis; with microscopic complicated by fever 101.8 ?F, sinus tachycardia of 101 bpm, tachypnea of 35 breaths/min, Leukocytosis of 12K and Elevated Procalcitonin of 0.94 ng/mL all present on admission concerning for possible Sepsis complicated by clinical evidence of Acute Metabolic Encephalopathy and Generalized Weakness in the setting of previously known Parkinson's disease. He was then admitted to the PCU for treatment under the sepsis protocol for stay that is expected to extend beyond 2 midnights. [facility] Medical History Non-smoker Family history of malignant neoplasm of colon in relative diagnosed when younger than 50 years of age Parkinson disease Home Medications ?Medication ?Instructions ?Recorded ?Last Taken ?Type carbidopa 10 mg-levodopa 100 mg 1 tab PO TID Anti park insons 01/05/24 09/08/24 History tablet pramipexole 0.5 mg tablet 0.5 mg PO QHS Antiparkinsons 01/05/24 09/08/24 History gabapentin 300 mg capsule 300 mg PO .evening Neuropath y 09/10/24 09/08/24 History Allergy/AdvReac Type Severity Reaction Status Date / Time No Known Allergies Allergy Verified 09/10/24 02:49 Family History Daughter Colon cancer, Onset Age: 19 At age 17yrs, Treated at [facility] and survives Surgical History History of carpal tunnel surgery of right wrist History of carpal tunnel surgery of left wrist History of colonoscopy Social History current occupational status: employed current occupation: [employer] Smoking Status: Never smoker substance use type: does not use ROS ROS Narrative Review of Systems: Constitutional: Patient admits to fever and chills. Eyes: Patient denies change in vision or discharge from eyes. ENT: Patient denies runny nose, sore throat or ear pain. Resp: Patient admits to tachypnea and shortness of breath as per HPI. CV: Patient admits to edema but he denies chest pain, palpitations or heart racing. GI: Patient denies abdominal pain, nausea, vomiting, diarrhea or constipation. : Patient admits to urinary frequency. MSK: Patient admits to generalized weakness and stiffness due to Parkinson's disease. Skin: Patient denies rash, abscess, wounds or jaundice. Psych: Patient denies symptoms of uncontrolled depression or anxiety. Neuro: Patient admits to chronic generalized weakness and stiffness with masked facies 2/2 Parkinson's. Allergy: Patient denies runny nose, sore throat or ear pain. Hematology: Patient denies easy bleeding or easy bruisability. Endocrinology: Patient denies polydipsia, polyphagia or heat/cold intolerance. 14 point ROS otherwise negative except for positives noted above in HPI. Vital Signs Vital Signs Vital Signs: 09/09/24 21:54 09/09/24 21:58 09/09/24 22:54 Temperature 103.1 F H 103.1 F H Temperature Source Oral Oral Pulse Rate 108 H 108 H Respiratory Rate 24 H 24 H Blood Pressure 166/107 H 166/107 H 150/81 H Blood Pressure Mean 126 126 104 Pulse Ox 93 93 Oxygen Delivery Method Room Air Room Air 09/09/24 22:58 09/09/24 23:15 09/10/24 00:00 Temperature 101.8 F H 101.8 F H Temperature Source Oral Oral Pulse Rate 102 H 101 H Respiratory Rate 33 H 37 H Blood Pressure 150/81 H 140/69 H Blood Pressure Mean 104 92 Pulse Ox 94 94 Oxygen Delivery Method Room Air Room Air Room Air 09/10/24 00:00 Temperature Temperature Source Pulse Rate 101 H Respiratory Rate Blood Pressure Blood Pressure Mean Pulse Ox Oxygen Delivery Method Weight Weight: 201 lb 4.513 oz Body Mass Index (BMI) 34.5 Physical Exam Const alert, oriented x3, no apparent distress, average body habitus and healthy appearing General Appearance: cooperative HEENT normocephalic, head/scalp atraumatic, hearing grossly normal bilaterally and moist oral mucous membranes Eyes PERRL and EOMs intact bilaterally Neck no lymphadenopathy and supple Resp normal respiratory effort, no retractions, no use of accessory muscles and clear to auscultation bilaterally Cardio regular rate and regular rhythm GI normal to inspection, nondistended, normoactive bowel sounds, soft to palpation, non-tender and non-distended Extremity normal to inspection and full ROM Skin Skin Narrative: Patient has evidence of rash, abscess, wounds or jaundice. Neuro oriented x3, CN's II-XII intact bilaterally, moves all extremities and no focal motor deficits Neuro Narrative: Patient has masked facies typical of his of Parkinson's disease. Speech: speech normal Psych affect normal Results Medical Records Data Attestation: I reviewed the patient's medical records Lab / Micro Data Attestation: I reviewed the patient's lab results. 09/09/24 22:06 09/09/24 22:06 Labs: Laboratory Results - last 24 hr 09/09/24 22:06: WBC 12.0 H, RBC 5.04, Hgb 14.6, Hct 42.7, MCV 84.7, MCH 29.0, MCHC 34.2, RDW Std Deviation 40.3, RDW Coeff of [place] 13.1, Plt Count 198, MPV 10.7, Immature Gran % (Auto) 0.500, Neut % (Auto) 85.0 H, Lymph % (Auto) 5.7 L, [place] % (Auto) 8.3, Eos % (Auto) 0.0, Baso % (Auto) 0.5, Absolute Neuts (auto) 10.2 H, Absolute Lymphs (auto) 0.68 L, Nucleated RBC % 0, PT 14.6, INR 1.1, Sodium 135, Potassium 4.0, Chloride 100, Carbon Dioxide 20.0 L, Anion Gap 15, BUN 13, Creatinine 1.36 H, Estim Creat Clear Calc 50.34, Est GFR (MDRD) Non-Af 56 L, BUN/Creatinine Ratio 9.4 L, Glucose 139 H, Calcium 9.2, Total Bilirubin 1.85 H, Direct Bilirubin 0.70 H, AST 37, ALT 39, Alkaline Phosphatase 74, Total Protein 7.2, Albumin 4.2, Globulin 3.0, Procalcitonin 0.94 H 09/09/24 23:15: Lactic Acid 1.7 09/09/24 23:19: Urine Color Yellow, Urine Clarity Sl. Cloudy, Urine pH 6.0, Ur Specific [place] 1.015, Urine Protein 500 H, Urine Glucose (UA) Normal, Urine Ketones 50 H, Urine Occult Blood 250 H, Urine Nitrite Negative, Urine Bilirubin Negative, Urine Urobilinogen 1 H, Ur Leukocyte Esterase 25 H, Urine RBC 50-100 SEEN, Urine WBC 5-10 SEEN, Ur Squamous Epith Cells 0 SEEN, Urine Bacteria 1+, Urine Mucus 1+ 09/09/24 23:38: Ammonia 16.2 Micro: Microbiology 09/09/24 23:47 Mucosa - Nose SARS-CoV-2, Influenza & RSV (PCR) - Final Imaging Radiology Impression Chest X-Ray 09/09/24 23:25 IMPRESSION: Cardiomegaly. No acute process. Reading Location: [facility] Imaging Services [address] [place] [id number] CTA Chst, Abd, Pel W and/or WO MR#: [id number] Acct: [id number] Name: ATIYA SMITH Rep #: [id number] : 1955 M 69 From: Lenny Rubio MD PCP: Dr. Christo Peacock MD Status: ADM IN Study: CTA Chst, Abd, Pel W and/or WO Date of Exam: 09/10/24 Exam# [id number] Ordering Dr: Derrek Chauhan DO PROCEDURE: CTA CHST, ABD, PEL W AND/OR WO 09/10/2024 REASON FOR EXAM: SEPSIS TECHNIQUE: CTA CHST, ABD, PEL W AND/OR WO coronal and Sagittal reconstruction series were provided. One or more dose reduction techniques were used (e.g., Automated exposure control, adjustment of the mA and/or kV according to patient size, use of iterative reconstruction technique. CONTRAST: Isovue-350 VOLUME: 100 mL RADIATION DOSE SUMMARY: CTDlvol: 17.39 mGy DLP: 1508 mGycm COMPARISON: 09/09/2024. FINDINGS: Fat containing right inguinal hernia without incarceration. Hepatomegaly with hepatic steatosis. Mild prostatomegaly. Right renal simple cyst measuring 3.5 cm. Mild diffuse spondylosis. Normal enhancement of the main pulmonary artery and right and left pulmonary arteries. Normal enhancement of the bilateral peripheral pulmonary arteries. There is no demonstrated pulmonary embolism. Normal thoracic aorta and visualized great vessels. There is no demonstrated aortic dissection. Normal heart and pericardium. Normal mediastinum. Normal hilar regions. Normal visualized trachea and bronchi. The lungs are well expanded. Normal pulmonary parenchyma. Normal pleura. Normal gallbladder and extrahepatic biliary system. Normal spleen. Normal pancreas. Normal bilateral adrenal glands. Normal size of the right kidney. There is no right renal mass. There are no right renal calculi. There is no right hydronephrosis. Normal visualized right ureter. Normal size of the left kidney. There is no left renal mass. There are no left renal calculi. There is no left hydronephrosis. Normal visualized left ureter. Normal visualized stomach. Normal small intestine. Normal colon. The appendix is visualized and appears normal. There is no demonstrated peritoneal fluid. Normal abdominal aorta. Normal inferior vena cava. Normal retroperitoneum. Normal urinary bladder. There is no pelvic mass lesion or lymphadenopathy. There is no pelvic fluid. CT/CTA Chst, Abd, Pel W and/or WO IMPRESSION: Fat containing right inguinal hernia without incarceration. Hepatomegaly with hepatic steatosis. Mild prostatomegaly. Right renal simple cyst measuring 3.5 cm. Mild diffuse spondylosis. Reading Location: [facility] CC: Dr. Christo Peacock MD; DO Prasanna Woodruff Tissue Rewinder: Signed Assessment & Plan Assessment/Plan (1) Sepsis: QUALIFIERS: Sepsis acute organ dysfunction status: with acute organ dysfunction Sepsis type: sepsis due to unspecified organism Severe sepsis acute organ dysfunction type: encephalopathy Severe sepsis shock status: without septic shock Qualified Code(s): A41.9 - Sepsis, unspecified organism; R65.20 - Severe sepsis without septic shock; G93.41 - Metabolic encephalopathy (2) Acute cystitis with hematuria: (3) Fever: QUALIFIERS: Fever type: unspecified Qualified Code(s): R50.9 - Fever, unspecified (4) Leukocytosis: QUALIFIERS: Leukocytosis type: unspecified Qualified Code(s): D 72.829 - Elevated white blood cell count, unspecified (5) Elevated procalcitonin: (6) Acute metabolic encephalopathy: (7) Generalized weakness: (8) Parkinson disease: QUALIFIERS: Dyskinesia presence: with dyskinesia Fluctuating manifestations: with fluctuating manifestations Qualified Code(s): G20.B2 - Parkinson's disease with dyskinesia, with fluctuations (9) Obesity (BMI 30.0-34.9): PLAN: Plan 1. UA positive for Acute Cystitis; microscopic hematuria with clinical signs of Sepsis; including Fever of 101.8 ?F, Leukocytosis of 12K and Elevated Procalcitonin 0.94 ng/mL present on admission - Admit to PCU for treatment under the Sepsis protocol. Continue empiric IV piperacillin-tazobactam plus IV vancomycin begun in the ER and await culture and sensitivity data. Give acetaminophen prn for pain or fever. Give ondansetron IV prn for nausea and vomiting. 2. Acute Metabolic Encephalopathy and Generalized Weakness in the setting of previously known Parkinson's disease; on pramipexole complicating #1 - Maintain supportive care and monitor for improvement. Resume carbidopa-levodopa plus pramipexole as previous. Check TSH, B12, Folate, HgbA1c, UDS and GEOVANNY to expand confusion workup. Finally, we will consult PT/OT and Case Management sees patient on rounds in the a.m. further recommendations to help appreciated in advance. 3. Obesity; with BMI of 34.5 this admission adding to the burden of disease outlined from #1 & #2 - Weight loss will be recommended. Check TSH. This complicates his case and may hamper recovery. 4. Hyperlipidemia; on atorvastatin - Resume statin and check Lipid Profile. 5. History of colonic polyps; s/p polypectomy (2018) - Noted. 6. History of CTS; s/p bilateral release - Noted. 7. OA - Give acetaminophen prn as per pain scale outlined in #1. 8. DVT prophylaxis - Enoxaparin 40 mg sq daily plus SCD's. Total time: Approximately (but not less than) 75 minutes. Sepsis Attestation Sepsis Alert: Yes Sepsis Attestation: Agree w/Sepsis Date exam was performed: 09/10/24 Time exam was performed: 01:30 Possible Source of Sepsis: Genitourinary Sepsis Organ Dysfunction Criteria Present: New/Unexplained change in mental status Fluid Resuscitation Fluid resuscitation indicated?: Yes Fluid Resuscitation ordered: 30 ml/kg fluid bolus ordered Amount of fluid ordered: 2 Sepsis Note Date exam was performed: 09/10/24 Time exam was performed: 05:30 Sepsis Attestation: Sepsis re-evaluation was performed Response to fluids: Fluid responsive hypotension Charges/Coding Visit Charges Inpatient E&M: 60553 Init Hosp L3
--- NOTE | 2024-09-10 01:07 | CT_ITS ---
PROCEDURE: CTA CHST, ABD, PEL W AND/OR WO 09/10/2024 REASON FOR EXAM: SEPSIS TECHNIQUE: CTA CHST, ABD, PEL W AND/OR WO coronal and Sagittal reconstruction series were provided. One or more dose reduction techniques were used (e.g., Automated exposure control, adjustment of the mA and/or kV according to patient size, use of iterative reconstruction technique. CONTRAST: Isovue-350 VOLUME: 100 mL RADIATION DOSE SUMMARY: CTDlvol: 17.39 mGy DLP: 1508 mGycm COMPARISON: 09/09/2024. FINDINGS: Fat containing right inguinal hernia without incarceration. Hepatomegaly with hepatic steatosis. Mild prostatomegaly. Right renal simple cyst measuring 3.5 cm. Mild diffuse spondylosis. Normal enhancement of the main pulmonary artery and right and left pulmonary arteries. Normal enhancement of the bilateral peripheral pulmonary arteries. There is no demonstrated pulmonary embolism. Normal thoracic aorta and visualized great vessels. There is no demonstrated aortic dissection. Normal heart and pericardium. Normal mediastinum. Normal hilar regions. Normal visualized trachea and bronchi. The lungs are well expanded. Normal pulmonary parenchyma. Normal pleura. Normal gallbladder and extrahepatic biliary system. Normal spleen. Normal pancreas. Normal bilateral adrenal glands. Normal size of the right kidney. There is no right renal mass. There are no right renal calculi. There is no right hydronephrosis. Normal visualized right ureter. Normal size of the left kidney. There is no left renal mass. There are no left renal calculi. There is no left hydronephrosis. Normal visualized left ureter. Normal visualized stomach. Normal small intestine. Normal colon. The appendix is visualized and appears normal. There is no demonstrated peritoneal fluid. Normal abdominal aorta. Normal inferior vena cava. Normal retroperitoneum. Normal urinary bladder. There is no pelvic mass lesion or lymphadenopathy. There is no pelvic fluid. CT/CTA Chst, Abd, Pel W and/or WO IMPRESSION: Fat containing right inguinal hernia without incarceration. Hepatomegaly with hepatic steatosis. Mild prostatomegaly. Right renal simple cyst measuring 3.5 cm. Mild diffuse spondylosis. Reading Location[facility]
--- NOTE | 2024-09-10 01:09 | EDS_ITS ---
HPI History of Present Illness Chief Complaint: Confusion Informant: patient and family Narrative Narrative: Patient is a 69-year-old male with past medical history of Parkinson's disease. According to family he told them that he did not feel well and left work early. Family states that they went to check on the patient as he lives alone and he seemed confused from his baseline. They state that he is also been having frequent urination. Family reports that it is unknown if he has been taking his medication as directed. However because of his increased confusion and fatigue they have concern for potential infection and he was brought in for evaluation Upon arrival to the ER the patient is awake alert and oriented to person place and time. He states that he feels tired at this time but otherwise has no complaints [facility] Medical History Non-smoker Family history of malignant neoplasm of colon in relative diagnosed when younger than 50 years of age Parkinson disease Home Medications ?Medication ?Instructions ?Recorded ?Last Taken ?Type carbidopa 10 mg-levodopa 100 mg 1 tab PO TID Anti park insons 01/05/24 09/08/24 History tablet pramipexole 0.5 mg tablet 0.5 mg PO QHS Antiparkinsons 01/05/24 09/08/24 History gabapentin 300 mg capsule 300 mg PO .evening Neuropath y 09/10/24 09/08/24 History Allergy/AdvReac Type Severity Reaction Status Date / Time No Known Allergies Allergy Verified 09/10/24 02:49 Family History Daughter Colon cancer, Onset Age: 19 At age 17yrs, Treated at [facility] and survives Surgical History History of carpal tunnel surgery of right wrist History of carpal tunnel surgery of left wrist History of colonoscopy Social History current occupational status: employed current occupation: [employer] Smoking Status: Never smoker substance use type: does not use ROS ROS ED Constitutional Constitutional ED: Reports other Details: Positive fatigue ; Denies chills or fever(s) Eyes Eyes: Denies change in vision ENT ENT ED: Denies rhinorrhea or sore throat Cardiovascular Cardiovascular: Denies chest pain Respiratory/Chest Respiratory/Chest: Denies cough or dyspnea Gastrointestinal Gastrointestinal: Denies abdominal pain, diarrhea, nausea or vomiting Genitourinary Genitourinary ED: Reports urinary frequency; Denies dysuria Musculoskeletal Musculoskeletal: Denies myalgias Integumentary Denies rash Neurologic Neurologic: Reports headache(s) and weakness Hematologic/Lymphatic Hematologic/Lymphatic: Denies easy bleeding or easy bruising EXAM Physical Exam Const Vital Signs: 09/09/24 21:54 09/09/24 21:58 09/09/24 22:54 Temperature 103.1 F H 103.1 F H Temperature Source Oral Oral Pulse Rate 108 H 108 H Respiratory Rate 24 H 24 H Blood Pressure 166/107 H 166/107 H 150/81 H Blood Pressure Mean 126 126 104 Pulse Ox 93 93 Oxygen Delivery Method Room Air Room Air 09/09/24 22:58 09/09/24 23:15 09/09/24 23:57 Temperature 101.8 F H Temperature Source Oral Pulse Rate 102 H 103 H Respiratory Rate 33 H 35 H Blood Pressure 150/81 H Blood Pressure Mean 104 Pulse Ox 94 Oxygen Delivery Method Room Air Room Air 09/10/24 00:00 09/10/24 00:00 09/10/24 00:00 Temperature 101.8 F H Temperature Source Oral Pulse Rate 101 H 101 H 103 H Respiratory Rate 37 H 43 H Blood Pressure 140/69 H Blood Pressure Mean 92 Pulse Ox 94 Oxygen Delivery Method Room Air 09/10/24 00:15 09/10/24 00:27 09/10/24 00:30 Temperature Temperature Source Pulse Rate 104 H 105 H 102 H Respiratory Rate 30 H 37 H 38 H Blood Pressure 150/81 H 140/69 H Blood Pressure Mean 100 88 Pulse Ox 94 Oxygen Delivery Method 09/10/24 00:47 09/10/24 01:00 09/10/24 01:00 Temperature 99.7 F H Temperature Source Oral Pulse Rate 97 94 Respiratory Rate 22 H 18 Blood Pressure 160/96 H 156/142 H Blood Pressure Mean 117 148 Pulse Ox 96 Oxygen Delivery Method Room Air 09/10/24 01:06 09/10/24 01:08 09/10/24 01:13 Temperature 99.7 F H Temperature Source Pulse Rate 92 93 91 Respiratory Rate 31 H 27 H 30 H Blood Pressure 160/96 H 160/96 H Blood Pressure Mean 115 117 Pulse Ox 96 Oxygen Delivery Method Positive well nourished and well developed General Appearance ED: well developed; Negative for pallor HEENT HEENT Narrative: Normocephalic atraumatic No tongue or lip swelling no oral lesions no airway edema or compromise No secondary findings in the posterior pharynx to suggest infection Eyes PERRL and EOMs intact bilaterally General Eye ED: Negative for scleral icterus Neck supple Neck Narrative: No nuchal rigidity or meningeal signs noted Chest Wall palpation of chest normal Resp Resp Narrative: Breath sounds are diminished throughout but overall clear to auscultation. Patient is tachypneic but otherwise there is no nasal flaring retractions or accessory muscle use Cardio regular rhythm Rate: tachycardic and other Other Details: Tachycardic rate with regular rhythm Radial and carotid pulses are equal and symmetric GI normal to inspection, nondistended, normoactive bowel sounds, non-tender, non- distended and no masses GI Narrative: Abdomen is soft nontender and nondistended with normal active bowel sounds No voluntary guarding or rigidity or pulsatile mass Auscultation: normoactive bowel sounds Palpation: soft Back/Spine no CVA tenderness Extremity Extremity Narrative: There is +1-2 pitting edema to the bilateral lower extremities that is slightly greater on the left than right Negative Homans' sign bilaterally Neuro oriented x3, CN's II-XII intact bilaterally and no sensory deficits noted Neuro Narrative: GCS of 15 Patient is awake and alert to person place and time He is slow to respond and has a flat affect but this is most likely due to masked facies from Parkinson's disease. There is no obvious focal neurologic deficit Sensorium / Orientation: alert Psych Psych Narrative: Patient has a flat affect Skin no rashes or lesions noted General Skin Exam: Negative for jaundice or pallor MDM MDM MDM Narrative Medical decision making narrative: Patient presented to the ER febrile and tachycardic. It was felt that the tachycardia and tachypnea were most likely related to his underlying fever. As he had no symptom complaints other than feeling fatigued/weak with urinary frequency there is high likelihood that patient has a UTI. However in order to check for potential pneumonia versus acute kidney injury versus acute blood loss anemia versus hepatic encephalopathy basic labs and a chest x-ray were obtained. Labs showed leukocytosis at 12 with left shift. Lactic acid was normal however and his Pro-Harshad was just under 1. The leukocytosis and left shift with procalcitonin value near 1 coupled with the 103 fever is concerning for systemic infection. Secondary to his blood cultures and urine cultures were obtained. The patient was started on vancomycin and Zosyn. He was given 3 L of IV fluid which is slightly more than the 30 mL/kg fluid bolus recommended in septic protocol. The case was discussed with the hospitalist. He agrees to accept the patient this time for continued care while we continue to track the blood and urine cultures. Based on his tachypnea as well as mild elevation in the liver enzymes he does recommend a CTA of the chest abdomen and pelvis be obtained to make sure there is no secondary findings of infection that were missed on blood work or imaging. The patient was given IV fluid as documented above along with Tylenol and Motrin for the fever. With resolution of the fever and tachycardia and tachypnea resolved. At this time as he is not requiring vasopressors or supplemental oxygen will be placed in the progressive care unit for continued evaluation and treatment History & Record Review Discussion w/independent historian: Patient and Family Lab Data Attestation: I reviewed the patient's lab results. Labs: Laboratory Results - last 24 hr 09/09/24 09/09/24 09/09/24 22:06 23:15 23:19 WBC 12.0 H RBC 5.04 Hgb 14.6 Hct 42.7 MCV 84.7 MCH 29.0 MCHC 34.2 RDW Std Deviation 40.3 RDW Coeff of Earl 13.1 Plt Count 198 MPV 10.7 Immature Gran % (Auto) 0.500 Neut % (Auto) 85.0 H Lymph % (Auto) 5.7 L [place] % (Auto) 8.3 Eos % (Auto) 0.0 Baso % (Auto) 0.5 Absolute Neuts (auto) 10.2 H Absolute Lymphs (auto) 0.68 L Nucleated RBC % 0 PT 14.6 INR 1.1 Sodium 135 Potassium 4.0 Chloride 100 Carbon Dioxide 20.0 L Anion Gap 15 BUN 13 Creatinine 1.36 H Estim Creat Clear Calc 50.34 Est GFR (MDRD) Non-Af 56 L BUN/Creatinine Ratio 9.4 L Glucose 139 H Lactic Acid 1.7 Calcium 9.2 Total Bilirubin 1.85 H Direct Bilirubin 0.70 H AST 37 ALT 39 Alkaline Phosphatase 74 Ammonia Total Protein 7.2 Albumin 4.2 Globulin 3.0 Procalcitonin 0.94 H Urine Color Yellow Urine Clarity Sl. Cloudy Urine pH 6.0 Ur Specific Loris 1.015 Urine Protein 500 H Urine Glucose (UA) Normal Urine Ketones 50 H Urine Occult Blood 250 H Urine Nitrite Negative Urine Bilirubin Negative Urine Urobilinogen 1 H Ur Leukocyte Esterase 25 H Urine RBC 50-100 SEEN Urine WBC 5-10 SEEN Ur Squamous Epith Cells 0 SEEN Urine Bacteria 1+ Urine Mucus 1+ 09/09/24 23:38 WBC RBC Hgb Hct MCV MCH MCHC RDW Std Deviation RDW Coeff of Earl Plt Count MPV Immature Gran % (Auto) Neut % (Auto) Lymph % (Auto) [place] % (Auto) Eos % (Auto) Baso % (Auto) Absolute Neuts (auto) Absolute Lymphs (auto) Nucleated RBC % PT INR Sodium Potassium Chloride Carbon Dioxide Anion Gap BUN Creatinine Estim Creat Clear Calc Est GFR (MDRD) Non-Af BUN/Creatinine Ratio Glucose Lactic Acid Calcium Total Bilirubin Direct Bilirubin AST ALT Alkaline Phosphatase Ammonia 16.2 Total Protein Albumin Globulin Procalcitonin Urine Color Urine Clarity Urine pH Ur Specific [place] Urine Protein Urine Glucose (UA) Urine Ketones Urine Occult Blood Urine Nitrite Urine Bilirubin Urine Urobilinogen Ur Leukocyte Esterase Urine RBC Urine WBC Ur Squamous Epith Cells Urine Bacteria Urine Mucus Radiography Diagnostic Testing: Clinical Impression(s) from Imaging Studies Chest X-Ray 09/09/24 23:25 IMPRESSION: Cardiomegaly. No acute process. Reading Location: [place] [id number] Chest/Abdomen/Pelvis CTA 09/10/24 01:07 IMPRESSION: Fat containing right inguinal hernia without incarceration. Hepatomegaly with hepatic steatosis. Mild prostatomegaly. Right renal simple cyst measuring 3.5 cm. Mild diffuse spondylosis. Reading Location: [place] [address] Chest x-ray as interpreted by the emergency medicine physician reveals no acute infiltrate pneumothorax or pleural effusion Management Discussion w/another healthcare provider: Hospitalist Discharge Plan Dx/Rx/DC Orders Clinical Impression: Generalized weakness, Sepsis, Parkinson disease, UTI (urinary tract infection) Disposition Disposition: Acute Care Hospital [facility] Discharge Date/Time: 09/10/24 02:03
[2024-09-10] MEDS: Ibuprofen 600 MG Tablet PO (01:17)
[2024-09-10] MEDS: 0.9% Normal Saline (1000mL) 1,000 ML 999 ML IV ×2 (01:22→02:23)
--- OUTSIDE RECORDS SUMMARY | 2024-09-10 01:35 | XMS RPT_ITS | CCD ---
Author Organization [facility] Care Team Providers Care Forming Machine Adjuster Name Role Phone Christo Warren MD Primary Care Provider Christo Warren MD Primary Care Provider Derrickagen LIFE COACH.Hermelinda DELEON Unavailable Suppan LIFE COACH.Marito DELEONPalak A Unavailable [phone] Christo Warren Primary Care Unavailable Mohan Adhikari Attending Unavailable Mohan Adhikari Consulting Unavailable Christo Warren Referring Unavailable Christo Warren Attending Unavailable Christo Warren Primary Care Unavailable Mohan Adhikari Attending Unavailable Christo Warren Referring Unavailable Christo Warren Primary Care Unavailable Jessica Abebe Attending Unavailable Care Physician, No Primary Primary Care Unava ilable Suppan LIFE COACH.ADRIENNE Palak A Unavailable [phone] Suppan LIFE COACH.ADRIENNE Palak A Unavailable [phone] SELF Referring Unavailable CHRISTO WARREN Primary Care [...] Comment on above: Take 1 capsule by [facility] every 6 hours as needed. hydrOXYzine hydrochloride 25 mg oral tablet (15 sources) Antihistamine Start: 08-17-2022 End: 09-08-2023 hydrOXYzine HCl (ATARAX) 25 mg tablet Indications: Lack of adequate sleep Take 1 tablet by mouth daily at bedtime. May increase to 2 tablets at bedtime if one is not effective. 90 tablet 0 08/17/2022 09/08/2023 Discontinued Comment on above: Take 1 tablet by [facility] daily at bedtime. May increase to 2 [...] Comment on above: Take 2 tablets by [facility] once daily. pramipexole dihydrochloride 0.5 mg oral [...] by gold th daily at bedtime. [facility] [place] 160 mg capsule (1 source) Start: 04-07-2014 End: 03-12-2021 take 1 capsule by mouth twice daily Saw [place] 160 mg capsule Take 160 mg by [...] Test Name Value Interpretation Reference Range Facility [id number] 09-06-2024 [id number] HNO ID: [id number] Author: MIS MONTGOMERY PT Service: ? Author Type: Physical Therapist Type: [id number] Filed: 09/06/2024 19:10 Note Text: [facility] Physical Therapy Plan of Care Certification Patient Name: Markus Stratton : 1955 [facility] #: [id number] Date: 09/06/2024 To: Nikki Javier MD From [...] Planned: 6 Planned Treatment Interventions: Therapeutic exercise (14187), Neuromuscular re-education (04136), Therapeutic activities (38765), Self-snf management (21244), Gait Training (17170), Patient/Family/Caregiver Education, Body Mechanics Training PLAN FOR [...] reviewed the treatment plan for Markus Chayito, [facility]# [id number] for the period of 09/06/24 -- 11/05/24, established on 09/06/2024. Signature certifies the need for therapy services. Normal [facility] CNTHERAPYon 09-06-2024 CNTHERAPY OT/PT/Speech Visit ( LDPT) MARKUS STRATTON ([id number]) 1955 M T Date Time Provider Department 09/06/24 4:30 PM MIS MONTGOMERY LDPT Date Time Provider Department Center 09/06/2024 4:30 PM [id number], CARLA LDPT [facility] Reason for Visit: PT Eval [747] [...] Take 1 tablet by mouth once daily. Computer Technologist: Addendum Therapy (PT/OT/Speech/Resp) ID: [id number] 09/06/2024 7:18 PM Author: MIS MONTGOMERY Signed by MIS MONTGOMERY PT on 09/06/2024 at 7:18 PM * * * This document replaces document [id number] * * * Document text: Program_ID:[id number] Access Code: [email or web address] URL: [email or web address] Date: 09-06-2024 Prepared By: Mis Montgomery Program [...] - 2-3 sets - 10 reps Normal [facility] THERAPY NTon 09-06-2024 THERAPY NT HNO ID: [id number] Author: MIS MONTGOMERY PT Service: Physical Therapy Author Type: Physical Therapist Type: Therapy (PT/OT/Speech/Resp) Filed: 09/06/2024 19:18 Note Text: Program_ID:[id number] Access Code: [email or web address] URL: [email or web address] Date: 09-06-2024 Prepared By: Mis Montgomery Program [...] - 2-3 sets - 10 reps Normal [facility] CNPNon 08-18-2024 CNPN Telephone (NEADMN) MARKUS STRATTON ([id number]) 1955 M [facility] Date Time Provider Department 08/18/24 NIKKI JAVIER [...] the day. Last Office Visit: 08/05/2024 Last [facility] visit: Visit date not found Next scheduled appointment: 02/21/2025 Best number to reach caller: [phone] Best time to reach caller: any Is [...] We ended call pleasantly. GAY Moy, RN, Nikik Lang MD 08/18/2024 11:33 AM Signed May [...] pleasantly. GAY Moy, RN, Nikki Lang MD 08/19/2024 11:33 [...] Encounter Status:Closed by VAL SWAN on 08/18/24 [facility] CNOVon 08-05-2024 CNOV Office Visit (NEUSTF ) MARKUS STRATTON ([id number]) 1955 M [facility] Date Time Provider Department 08/05/24 12:00 PM [...] timing. Gave info on PD research at [facility]. HPI Current Issues - Has been [...] Discussed with Patient: YES Nikki Javier MD [facility] Neurology Nikki Javier MD 08/05/2024 12:22 PM [...] around 6 (more content not included)... Normal [facility] 05-10-2024 [facility] Telephone (KYWS) MARKUS STRATTON ([id number]) 1955 M [facility] Date Time Provider Department 05/10/24 CHRISTO WARREN [facility] During your visit today, we recorded the following information about you: Ignacia Bryant, GEOVANNA 05/10/2024 10:38 AM Signed Patient calling to request different cough medication. Patient was seen at [facility] [place] on 05/01/24 for cough and azithromycin and [...] headache dizziness, wheezing or SOB. Uses [facility]. Please call patient with PCP response. [phone] GEOVANNA Johnson William J, MD 05/10/2024 11:36 [...] Date Reviewed: 05/01/2024 Reviewed by: Meron Cooper APRN.PHOTOENGRAVING FINISHER - Fully Assessed Reason for Visit: Patient Request [9576] Prescriptions as of 05/10/2024 - benzonatate (TESSALON [...] Encounter Status:Closed by CLAU FAM on 05/10/24 [facility] CNOVon 05-01-2024 CNOV Office Visit (UCMMAS ) MARKUS STRATTON ([id number]) 1955 M [facility] Date Time Provider Department 05/01/24 2:40 PM MERON COOPER During your visit today, we recorded the following information about you: Temperature Pulse Respiration Blood pressure 97.9 degrees 69/minute 20/minute 142/92 Meron Cooper APRN.PHOTOENGRAVING FINISHER 05/01/2024 3:07 PM Signed Body aches/Pain/Fever Acetaminophen/Tylenol [...] go to ER for evaluation. Meron Cooper APRN.PHOTOENGRAVING FINISHER This note was partially (more content not included)... [facility] CNOVon 04-19-2024 CNOV Office Visit ([facility] ) CHAYITOMARKUS ([id number]) 1955 M [facility] Date Time Provider Department 04/19/24 11:30 AM NIKKI JAVIER [facility] During your visit today, we recorded the [...] timing. Gave info on PD research at [facility]. HPI Current Issues - No clear benefit to levodopa - No side effects - Takes first dose around 5629-5882, second dose around 3831-1583 Generally does not take the mid-day dose [...] identified. 04/19/2024 by MD Nikki Harrell MD [facility] Neurology Nikki Javier MD 04/19/2024 11:41 AM [...] At the (more content not included)... Normal [facility] CNOVon 04-12-2024 CNOV Office Visit (FAMPWS ) MARKUS STRATTON ([id number]) 1955 [facility] Date Time Provider Department 04/12/24 8:40 AM [...] Abs Lymph 1.00 - 4.00 k/uL 2.41 Lipscomb% % 6.4 Abs Lipscomb <0.87 k/uL 0.68 Eosin% % 1.2 Abs [...] 06/2017 COLONOSCOPY SCREENING 07/14/2017 Dr. Mohan @ [facility]; Ascending colon polyp x1, biopsy- tubular [...] hypertension - (more content not included)... Normal [facility] CBC W Auto Differential pane l (Bld)on 03-29-2024 Basophils (Bld) [#/Vol] 0.09 10*3/uL Normal <0.11 [facility] Comment on above: Order Comment: Specimen Type: BLOOD SPEC IMEN Ordering Facility: [facility] Address: [address] [place] [address] Performed By: #### 5 7021-8 #### [facility] CLIA [id number] [address] [place] [address] [id number], [place] [address] [place] Basophils/100 WBC (Bld) 0.8 % Normal [facility] Comment on above: Order Comment: Specimen Type: BLOOD SPEC IMEN Ordering Facility: [facility] Address: [address] [place] [address] Performed By: #### 5 7021-8 #### [facility] CLIA [id number] [address] [place] [address] [place] Differential cell count method Nom (Bld) Auto Normal [facility] Comment on above: Order Comment: Specimen Type: BLOOD SPEC IMEN Ordering Facility: [facility] Address: [address] [place] [address] Performed By: #### 5 7021-8 #### [facility] CLIA [id number] [address] [place] [address] [place] Eosinophils (Bld) [#/Vol] 0.13 10*3/uL Normal <0.46 [facility] Comment on above: Order Comment: Specimen Type: BLOOD SPEC IMEN Ordering Facility: [facility] Address: [address] [place] [address] Performed By: #### 5 7021-8 #### [facility] CLIA [id number] [address] [place] [address] [place] Eosinophils/100 WBC (Bld) 1.2 % Normal [facility] Comment on above: Order Comment: Specimen Type: BLOOD SPEC IMEN Ordering Facility: [facility] Address: [address] [place] [address] Performed By: #### 5 7021-8 #### [facility] CLIA [id number] [address] [place] [address] [place] Erythrocyte distribution width (RBC) [Ratio] 13.4 % Normal 11.5-15.0 [facility] Comment on above: Order Comment: Specimen Type: BLOOD SPEC IMEN Ordering Facility: [facility] Address: [address] [place] [address] Performed By: #### 5 7021-8 #### [facility] CLIA [id number] [address] [place] [address] [place] Hematocrit (Bld) [Volume fraction] 47.2 % Normal 39.0-51.0 [facility] Comment on above: Order Comment: Specimen Type: BLOOD SPEC IMEN Ordering Facility: [facility] Address: [address] [place] [address] Performed By: #### 5 7021-8 #### [facility] CLIA [id number] [address] [place] [address] [place] Hemoglobin (Bld) [Mass/Vol] 15.1 g/dL Normal 13.0-17.0 [facility] Comment on above: Order Comment: Specimen Type: BLOOD SPEC IMEN Ordering Facility: [facility] Address: [address] [place] [address] Performed By: #### 5 7021-8 #### [facility] CLIA [id number] [address] [place] [address] [place] Immature granulocytes (Bld) [#/Vol] 0.06 10*3/uL Normal <0.10 [facility] Comment on above: Order Comment: Specimen Type: BLOOD SPEC IMEN Ordering Facility: [facility] Address: [address] [place] [address] Performed By: #### 5 7021-8 #### [facility] CLIA [id number] [address] [place] [address] [place] Immature granulocytes/100 WBC (Bld) 0.6 % Normal [facility] Comment on above: Order Comment: Specimen Type: BLOOD SPEC IMEN Ordering Facility: [facility] Address: [address] [place] [address] Performed By: #### 5 7021-8 #### [facility] CLIA [id number] [address] [place] [address] [place] Lymphocytes (Bld) [#/Vol] 2.41 10*3/uL Normal 1.00-4.00 [facility] Comment on above: Order Comment: Specimen Type: BLOOD SPEC IMEN Ordering Facility: [facility] Address: [address] [place] [address] Performed By: #### 5 7021-8 #### [facility] CLIA [id number] [address] [place] [address] [place] Lymphocytes/100 WBC (Bld) 22.7 % Normal [facility] Comment on above: Order Comment: Specimen Type: BLOOD SPEC IMEN Ordering Facility: [facility] Address: [address] [place] [address] Performed By: #### 5 7021-8 #### [facility] CLIA [id number] [address] [place] [address] [place] MCH (RBC) [Entitic mass] 28.3 pg Normal 26.0-34.0 [facility] Comment on above: Order Comment: Specimen Type: BLOOD SPEC IMEN Ordering Facility: [facility] Address: [address] [place] [address] Performed By: #### 5 7021-8 #### [facility] CLIA [id number] [address] [place] [address] [place] MCHC (RBC) [Mass/Vol] 32.0 g/dL Normal 30.5-36.0 [facility] Comment on above: Order Comment: Specimen Type: BLOOD SPEC IMEN Ordering Facility: [facility] Address: [address] [place] [address] Performed By: #### 5 7021-8 #### [facility] CLIA [id number] [address] [place] [address] [place] MCV (RBC) [Entitic vol] 88.4 fL Normal 80.0-100.0 [facility] Comment on above: Order Comment: Specimen Type: BLOOD SPEC IMEN Ordering Facility: [facility] Address: [address] [place] [address] Performed By: #### 5 7021-8 #### [facility] CLIA [id number] [address] [place] [address] [place] Monocytes (Bld) [#/Vol] 0.68 10*3/uL Normal <0.87 [facility] Comment on above: Order Comment: Specimen Type: BLOOD SPEC IMEN Ordering Facility: [facility] Address: [address] [place] [address] Performed By: #### 5 7021-8 #### [facility] CLIA [id number] [address] [place] [address] [place] Monocytes/100 WBC (Bld) 6.4 % Normal [facility] Comment on above: Order Comment: Specimen Type: BLOOD SPEC IMEN Ordering Facility: [facility] Address: [address] [place] [address] Performed By: #### 5 7021-8 #### [facility] CLIA [id number] [address] [place] [address] [place] Neutrophils (Bld) [#/Vol] 7.24 10*3/uL Normal 1.45-7.50 [facility] Comment on above: Order Comment: Specimen Type: BLOOD SPEC IMEN Ordering Facility: [facility] Address: [address] [place] [address] Performed By: #### 5 7021-8 #### [facility] CLIA [id number] [address] [place] [address] [place] Neutrophils/100 WBC (Bld) 68.3 % Normal [facility] Comment on above: Order Comment: Specimen Type: BLOOD SPEC IMEN Ordering Facility: [facility] Address: [address] [place] [address] Performed By: #### 5 7021-8 #### [facility] CLIA [id number] [address] [id number], [place] [address] [place] Nucleated RBC (Bld) [#/Vol] 10*3/uL Normal <0.01 [facility] Comment on above: Order Comment: Specimen Type: BLOOD SPEC IMEN Ordering Facility: [facility] Address: [address] [place] [address] Performed By: #### 5 7021-8 #### [facility] CLIA [id number] [address] [place] [address] [place] Nucleated RBC/100 WBC (Bld) [Ratio] 0.0 /100 WBC Normal [facility] Comment on above: Order Comment: Specimen Type: BLOOD SPEC IMEN Ordering Facility: [facility] Address: [address] [place] [address] Performed By: #### 5 7021-8 #### [facility] CLIA [id number] [address] [place] [address] [place] Platelet mean volume (Bld) [Entitic vol] 10.6 fL Normal 9.0-12.7 [facility] Comment on above: Order Comment: Specimen Type: BLOOD SPEC IMEN Ordering Facility: [facility] Address: [address] [place] [address] Performed By: #### 5 7021-8 #### [facility] CLIA [id number] [address] [place] [address] [place] Platelets (Bld) [#/Vol] 261 10*3/uL Normal 150-400 [facility] Comment on above: Order Comment: Specimen Type: BLOOD SPEC IMEN Ordering Facility: [facility] Address: [address] [place] [address] Performed By: #### 5 7021-8 #### [facility] CLIA [id number] [address] [place] [address] [place] RBC (Bld) [#/Vol] 5.34 10*6/uL Normal 4.20-6.00 [facility] Comment on above: Order Comment: Specimen Type: BLOOD SPEC IMEN Ordering Facility: [facility] Address: [address] [place] [address] Performed By: #### 5 7021-8 #### [facility] CLIA [id number] [address] [place] [address] [place] WBC (Bld) [#/Vol] 10.61 10*3/uL Normal 3.70-11.00 [facility] Comment on above: Order Comment: Specimen Type: BLOOD SPEC IMEN Ordering Facility: [facility] Address: [address] [place] [address] Performed By: #### 5 7021-8 #### [facility] CLIA [id number] [address] [place] [address] [place] Free PSA [Mass/Vol]on 2024 Free PSA/Total PSA [Mass fraction] 12 % Normal [facility] Comment on above: Order Comment: Specimen Type: BLOOD SPEC IMENOrdering Facility: [facility] Address: [address] [place] [address] Result Comment: Tota l and free PSA [...] 12.2% 15.8% Performed By: #### 1 0886-0 ####[facility] [id number] [place] [address] [place] Prostate specific Ag [Mass/Vol] 2.51 ng/mL Normal <2.60 [facility] Comment on above: Order Comment: Specimen Type: BLOOD SPEC IMENOrdering Facility: [facility] Address: [address] [facility] [place] [address] Result Comment: Tota l PSA test methodology used is the Electrochemiluminescence Immunoassay by [employer]. Total PSA values by differing methodologies cannot be interchanged. Performed By: #### 1 0886-0 ####[facility] [id number] [facility] [id number] [id number] [place] Colonoscopy Reporton 024 Colonoscopy Report [facility] Medical Records Department [address] [place] [address] Colonoscopy Report MR#: [id number] Acct: [id number] Name: MARKUS STRATTON Rep #: [id number] : 1955 68 From: Mohan Adhikari MD PCP: Dr. Christo Warren MD Status:[facility] Patient Name: Markus Stratton Procedure Date: 02/13/2024 [...] 1 week. Procedure Code(s): --- Professional --- 25464, Colonoscopy, flexible; with removal of tumor(s), polyp(s), or other lesion(s) by snare technique 88647, 59, Colonoscopy, flexible; with biopsy, single or [...] or abscess without bleeding CPT copyright 2021 [employer]. All rights reserved. The codes documented in this report are preliminary and upon snowboarding instructor review may be revised to meet current compliance requirements. Mohan Adhikari MD 02/13/2024 9:31:56 AM This report has been signed electronically. Number of Addenda: 0 Note Initiated On: 02/13/2024 8:28 AM 02/13/24931 Date Mohan Adhikari MD Cosigner Signature: Date (more content not included)... [facility] MR/POSTOP.[facility] 02-13-2024 MR/POSTOP.[facility] Medical Records Department [address] [place] [address] Anesthesia Postop Eval I 02/13/2434 MR#: [id number] Acct: [id number] Name: MARKUS STRATTON Rep #: [id number] : 1955 68 From: [place] No PCP: Dr. Christo Warren MD Status:REG SDC Y Race: C Location: [place] [address] Anesthesia: Postop Eval I Current Vital Signs [...] No Cosigner Signature: Date CC: Signed Normal [facility] MR/[id number] 02-13-2024 MR/POSTOPAN2 [facility] Medical Records Department [address] [place] [address] Anesthesia Postop Eval II 02/13/24 1308 MR#: [id number] Acct: [id number] Name: MARKUS STRATTON Rep #: [id number] : 1955 68 From: Facundo Hough MD PCP: Dr. Christo Warren MD Status:[facility] Y Race: C Location: [place] Anesthesia Postop [...] MD Cosigner Signature: Date CC: Signed Normal [facility] Surgery Specimen Level Michael 02-13-2024 Surgery Specimen Level IV -------- Patient Age/Sex Location Account Attending Physician -------- MARKUS STRATTON 68/M EN [id number] Dr. Mohan Adhikari MD -------- Specimen: [id number] Received: 02/13/24 Status: MICHELLE Godwin Num: [id number] Spec Type: EGD BIOPSY Subm Dr: Dr. [...] consists of one irregular fragment of light chacko soft tissue that measures 0.3 x 0.3 [...] submitted in one cassette. SJ. 02/13/2024 TC:5 [facility]:[id number] -------- Patient Age/Sex Location Account Attending Physician -------- MARKUS STRATTON 68/M EN [id number] Dr. Mohan Adhikari MD -------- Signed (signature on file) Dr. Fran Aguila DO 02/17/24 1031 -------- Normal [facility] Comment on above: Performed By: #### PSUIV #### [facility] [place], [address] Cesar 01-15-2024 CNPN Telephone (FAMPWS) MARKUS STRATTON ([id number]) 1955 M [facility] Date Time Provider Department 01/15/24 CHRISTO WARRENPWS During your visit today, we recorded the following information about you: Heydi Rodriguez 01/15/2024 10:32 AM Signed Carlitos is calling Christo Warren MD today requesting order for routine blood work and PSA Please advise and return his call [phone] Christo Warren MD 01/15/2024 11:29 AM Signed done Anna Page MA 01/15/2024 11:47 AM Signed Pt notified that lab orders have been faxed to [facility] Anna Page MA January 15, 2024 [...] BLOOD COUNT AND DIFFERENTIAL [SQCBCDIF] Order #: [id number] FUTURE PROSTATE SPECIFIC ANTIGEN, FREE [SQPSATF] Order #: [id number] FUTURE Prescriptions as of 04/12/2024 - pramipexole [...] Encounter Status:Closed by ANNA PAGE on 01/15/24 [facility] CNOVon 12-01-2023 CNOV Office Visit (INTMWS ) MARKUS STRATTON ([id number]) 1955 M T Date Time Provider Department [...] Encounter Status:Closed by IAM HUMPHRIES on 12/01/23 [facility] Cesar 12-01-2023 GEOVANNI Telephone (INTMWS) MARKUS STRATTON ([id number]) 1955 M T Date Time Provider Department [...] Encounter Status:Closed by KOBI DEJESUS on 12/01/23 [facility] CNOVon 11-20-2023 CNOV Office Visit (INTMWS ) MARKUS STRATTON ([id number]) 1955 [facility] Date Time Provider Department 11/20/23 12:00 PM RACHEL MARTINS INTMWS During your visit today, we recorded the following information about you: Temperature Pulse Respiration Blood pressure 98.4 degrees 64/minute 16/minute 156/90 Weight 91.7 kg Rachel Martins, LIFE COACH.PHOTOENGRAVING FINISHER 11/20/2023 1:26 PM Signed CC: Patient presents with: runny nose, cough: Requesting another antibiotic HPI: Markus Stratton is a 68 year old male who presents to the office with above complaint He was seen in [facility] on 11/10 for three day history of [...] 07/14/2017: COLONOSCOPY SCREENING Comment: Dr. Mohan @ [facility]; Ascending colon polyp x1, biopsy- tubular [...] tenderness or frontal sinus tenderness. Mouth/Throat: Lips: [place]. Mouth: Mucous membranes are moist. Pharynx: Oropharynx [...] MG-GUAIFENESIN 100 (more content not included)... Normal [facility] 11-20-2023 [facility] Telephone (KYWS) MARKUS STRATTON ([id number]) 1955 M [facility] Date Time Provider Department 11/20/23 [facility] During your visit today, we recorded [...] prescriptions as requested and contact him at [phone] once completed. GEOVANNA Dye William J, MD [...] Fully Assessed Reason for Visit: Patient Question [7507] Prescriptions as of 11/20/2023 - carbidopa-levodopa (SINEMET) [...] Encounter Status:Closed by DINA MORAN on 11/20/23 [facility] CNOVon 11-17-2023 CNOV Office Visit ([facility] ) MARKUS STRATTON ([id number]) 1955 M [facility] Date Time Provider Department 11/17/23 2:00 PM NIKKI JAVIER [facility] During your visit today, we recorded the [...] films/image/tracing revie (more content not included)... Normal [facility] CNOVon 11-11-2023 CNOV Office Visit ([facility] ) CALABRETTA,MARKUS ([id number]) 1955 M [facility] Date Time Provider Department 11/11/23 5:45 PM ISRAEL ROQUE [facility] During your visit today, we recorded the following information about you: Temperature Pulse Respiration Blood pressure 98.4 degrees 67/minute 16/minute 136/84 Weight 93.8 kg Israel Roque PA 11/11/2023 5:49 PM Signed This note was created using PBJ Conciergeriter. Subjective Markus Stratton is a 68 year [...] 07/14/2017: COLONOSCOPY SCREENING Comment: Dr. Mohan @ [facility]; Ascending colon polyp x1, biopsy- tubular [...] COVID swab (more content not included)... Normal [facility] CNOVon 10-06-2023 CNOV Office Visit ([facility] ) MARKUS STRATTON ([id number]) 1955 [facility] Date Time Provider Department 10/06/23 11:20 AM CHRITSO WARREN During your visit today, we recorded [...] 06/2017 COLONOSCOPY SCREENING 07/14/2017 Dr. Mohan @ [facility]; Ascending colon polyp x1, biopsy- tubular [...] 325 mg (more content not included)... Normal [facility] Cesar 10-01-2023 CNPN Telephone (3ROAM) MARKUS STRATTON ([id number]) 1955 [facility] Date Time Provider Department 10/01/23 BONNY BAINS During your visit today, we recorded the following information about you: [place] 10/01/2023 8:45 AM Signed Last colonoscopy was done under MAC anesthesia at [facility]. The patient states I want to make sure I am OUT. He doesn't want to drive to [place]. We discussed the IV sedation here and [...] entered for correct anesthesia type [place] [employer] Trap [place] 10/27/2023 8:40 AM Signed ----- Message ----- From: Bonny Bains APRN.PHOTOENGRAVING FINISHER Sent: 09/29/2023 4:22 PM EDT To: [place]; [facility] Surg Schedule Pool Carlitos is going to call in to schedule (if he decides to move forward with colonoscopy). I didn't place order because I am unsure if he will choose MAC or IV sedation. He will need to hold his 325mg aspirin prior. Bonny Schwartz APRN.PHOTOENGRAVING FINISHER Allergies As of Date: 10/01/2023 (No Known Allergies) Date Reviewed: 09/29/2023 Reviewed by: Bonny Bains APRN.PHOTOENGRAVING FINISHER - Fully Assessed Reason for Visit: Appointment [...] Encounter Status:Closed by SEVEN ALEGRIA on 01/27/24 [facility] CNOVjudy 09-29-2023 CNOV Office Visit ([facility] ) MARKUS STRATTON ([id number]) 1955 M [facility] Date Time Provider Department 09/29/23 4:00 PM BONNY BAINS [facility] During your visit today, we recorded the following information about you: Temperature Pulse Blood pressure Weight 97.6 degrees 74/minute 138/72 90.7 kg Height 1.626 m Bonny Bains APRN.CNP 09/29/2023 4:22 PM Signed HISTORY AND PHYSICAL Markus Stratton : 1955 REFERRING PHYSICIAN: Christo Warren [address] [facility] [id number] CHIEF COMPLAINT: Patient presents with: Consult: Colonoscopy [...] Last colonoscopy was with Dr. Mohan at [facility] in June 2017 Impression: 1. Cecum: [...] 06/2017 COLONOSCOPY SCREENING 07/14/2017 Dr. Mohan @ [facility]; Ascending colon polyp x1, biopsy- tubular [...] entered by the nurse and reviewed by md Nursing Notes: Allyson Pollard RN 09/29/2023 3:56 [...] patient shelley (more content not included)... Normal [facility] CNOVon 09-08-2023 CNOV Office Visit ([facility] ) MARKUS STRATTON ([id number]) 1955 [facility] Date Time Provider Department 09/08/23 10:00 AM [facility] During your visit today, we recorded the [...] 06/2017 COLONOSCOPY SCREENING 07/14/2017 Dr. Mohan @ [facility]; Ascending colon polyp x1, biopsy- tubular [...] definite cog (more content not included)... [facility] MARKUS STRATTON ([id number]) 1955 M [facility] Date Time Provider Department 09/08/23 CHRISTO WARREN [facility] During your visit today, we recorded [...] Fully Assessed Reason for Visit: Patient Question [5455] Visit Diagnosis:Essential hypertension [I10] Order(s):lisinopril (ZESTRIL) 5 [...] Status:Closed by CHRISTO WARREN on 09/08/23 Normal [facility] XR Lumbar spine 3 Viewson IMPRESSION: DEGENERATIVE CHANGES AND ALIGNMENT ABNORMALITIES DESCRIBED Storage Receipt Poster: [place] Transcribe Date/Time: May 02 2020 6:18A Dictated by : SAMMI MANRIQUEZ MD This examination was interpreted and the report reviewed and electronically signed by: SAMMI MANRIQUEZ MD on May 02 2020 6:19AM [facility] DIVISION OF RADIOLOGY * * *Final Report* [...] IMPRESSION: DEGENERATIVE CHANGES AND ALIGNMENT ABNORMALITIES DESCRIBED Storage [facility] Transcribe Date/Time: May 02 2020 6:18A Dictated by : SAMMI MANRIQUEZ MD This examination was interpreted and the report reviewed and electronically signed by: SAMMI MANRIQUEZ MD on May 02 2020 6:19AM EST [facility] XR Lumbar spine 3 ViewsOrder ed By: [facility] Provider on 05-02-2020 [facility] XR Lumbar spine 3 Viewson Radiology Study observation (narrative) [facility] Vital Signs Date Time Vital Sign Value Performing Clinician Facility 08-05-2024 11:35-0400 Body mass index (BMI) [Ratio] 34.4 kg/m2 Nikki Javier MD Work Phone: [facility] 08-05-2024 11:35-0400 Body temperature 98.01 [degF] Nikki Javier MD Work Phone: [facility] 08-05-2024 11:35-0400 Body weight 90.9 kg Nikki Javier MD Work Phone: [facility] 08-05-2024 11:35-0400 Diastolic blood pressure 87 mm[Hg] Nikki Javier MD Work Phone: [facility] 08-05-2024 11:35-0400 Heart rate 61 /min Nikki Javier MD Work Phone: [facility] 08-05-2024 11:35-0400 SaO2% (BldA) [Mass fraction] 96 % Nikki Javier MD Work Phone: [facility] 08-05-2024 11:35-0400 Systolic blood pressure 144 mm[Hg] Nikki Javier MD Work Phone: [facility] 05-01-2024 14:48-0500 Body temperature 97.9 [degF] Meron David-Eibara LIFE COACH.PHOTOENGRAVING FINISHER Work Phone: [facility] 05-01-2024 14:48-0500 Diastolic blood pressure 92 mm[Hg] Meron David-Eibara LIFE COACH.PHOTOENGRAVING FINISHER Work Phone: [facility] 05-01-2024 14:48-0500 Heart rate 69 /min Meron David-Eibara LIFE COACH.PHOTOENGRAVING FINISHER Work Phone: [facility] 05-01-2024 14:48-0500 Respiratory rate 20 /min Meron David-Eibara LIFE COACH.PHOTOENGRAVING FINISHER Work Phone: [facility] 05-01-2024 14:48-0500 SaO2% (BldA) [Mass fraction] 97 % Meron David-Eibara LIFE COACH.PHOTOENGRAVING FINISHER Work Phone: [facility] 05-01-2024 14:48-0500 Systolic blood pressure 142 mm[Hg] Meron David-Eibara LIFE COACH.PHOTOENGRAVING FINISHER Work Phone: [facility] 04-19-2024 10:57-0500 Body mass index (BMI) [Ratio] 35.59 kg/m2 Nikki Javier MD Work Phone: [facility] 04-19-2024 10:57-0500 Body temperature 97 [degF] Nikki Javier MD Work Phone: [facility] 04-19-2024 10:57-0500 Body weight 94.05 kg Nikki Javier MD Work Phone: [facility] 04-19-2024 10:57-0500 Diastolic blood pressure 98 mm[Hg] Nikki Javier MD Work Phone: [facility] 04-19-2024 10:57-0500 Heart rate 62 /min Nikki Javier MD Work Phone: [facility] 04-19-2024 10:57-0500 SaO2% (BldA) [Mass fraction] 97 % Nikki Javier MD Work Phone: [facility] 04-19-2024 10:57-0500 Systolic blood pressure 155 mm[Hg] Nikki Javier MD Work Phone: [facility] 04-12-2024 08:25-0500 Body height 162.6 cm Christo Warren MD Work Phone: [facility] 04-12-2024 08:25-0500 Body mass index (BMI) [Ratio] 35.36 kg/m2 Christo Warren MD Work Phone: [facility] 04-12-2024 08:25-0500 Body weight 93.44 kg Christo Warren MD Work Phone: [facility] 04-12-2024 08:25-0500 Diastolic blood pressure 86 mm[Hg] Christo Warren MD Work Phone: [facility] 04-12-2024 08:25-0500 Heart rate 67 /min Christo Warren MD Work Phone: [facility] 04-12-2024 08:25-0500 Systolic blood pressure 158 mm[Hg] Christo Warren MD Work Phone: [facility] 12-01-2023 11:40-0400 Diastolic blood pressure 83 mm[Hg] Rachel Martins APRN.PHOTOENGRAVING FINISHER Work Phone: [facility] Comment on above: bp lara average 12-01-2023 11:40-0400 Heart rate 64 /min Rachel Martins LIFE COACH.PHOTOENGRAVING FINISHER Work Phone: [facility] 12-01-2023 11:40-0400 Systolic blood pressure 138 mm[Hg] Rachel Lakshmi LIFE COACH.PHOTOENGRAVING FINISHER Work Phone: [facility] Comment on above: bp lara average 11-20-2023 12:21-0400 Diastolic blood pressure 90 mm[Hg] Rachel Lakshmi LIFE COACH.PHOTOENGRAVING FINISHER Work Phone: [facility] 11-20-2023 12:21-0400 SaO2% (BldA) [Mass fraction] 96 % Rachel Lakshmi LIFE COACH.PHOTOENGRAVING FINISHER Work Phone: [facility] 11-20-2023 12:21-0400 Systolic blood pressure 156 mm[Hg] Rachel WebbLakshmi LIFE COACH.PHOTOENGRAVING FINISHER Work Phone: [facility] 11-20-2023 12:00-0400 Body mass index (BMI) [Ratio] 34.7 kg/m2 Rachel Lakshmi LIFE COACH.PHOTOENGRAVING FINISHER Work Phone: [facility] 11-20-2023 12:00-0400 Body temperature 98.4 [degF] Rachel VitalLakshmi LIFE COACH.PHOTOENGRAVING FINISHER Work Phone: [facility] 11-20-2023 12:00-0400 Body weight 91.7 kg Rachel WebbLakshmi LIFE COACH.PHOTOENGRAVING FINISHER Work Phone: [facility] 11-20-2023 12:00-0400 Heart rate 64 /min Rachel WebbLakshmi LIFE COACH.PHOTOENGRAVING FINISHER Work Phone: [facility] 11-20-2023 12:00-0400 Respiratory rate 16 /min Rachel WebbLakshmi LIFE COACH.PHOTOENGRAVING FINISHER Work Phone: [facility] 11-17-2023 13:50-0400 Body mass index (BMI) [Ratio] 34.83 kg/m2 Nikki Javier MD Work Phone: [facility] 11-17-2023 13:50-0400 Body temperature 97.81 [degF] Nikki Javier MD Work Phone: [facility] 11-17-2023 13:50-0400 Body weight 92.05 kg Nikki Javier MD Work Phone: [facility] 11-17-2023 13:50-0400 Diastolic blood pressure 64 mm[Hg] Nikki Javier MD Work Phone: [facility] 11-17-2023 13:50-0400 Heart rate 67 /min Nikki Javier MD Work Phone: [facility] 11-17-2023 13:50-0400 SaO2% (BldA) [Mass fraction] 95 % Nikki Javier MD Work Phone: [facility] 11-17-2023 13:50-0400 Systolic blood pressure 129 mm[Hg] Nikki Javier MD Work Phone: [facility] 11-11-2023 17:39-0400 Body mass index (BMI) [Ratio] 35.5 kg/m2 Krislyn Aberegg PA Work Phone: [facility] 11-11-2023 17:39-0400 Body temperature 98.4 [degF] Krislyn Aberegg PA Work Phone: [facility] 11-11-2023 17:39-0400 Body weight 93.8 kg Krislyn Aberegg PA Work Phone: [facility] 11-11-2023 17:39-0400 Diastolic blood pressure 84 mm[Hg] Krislyn Aberegg PA Work Phone: [facility] 11-11-2023 17:39-0400 Heart rate 67 /min Krislyn Aberegg PA Work Phone: [facility] 11-11-2023 17:39-0400 Respiratory rate 16 /min Krislyn Aberegg PA Work Phone: [facility] 11-11-2023 17:39-0400 SaO2% (BldA) [Mass fraction] 96 % Krislyn Aberegg PA Work Phone: [facility] 11-11-2023 17:39-0400 Systolic blood pressure 136 mm[Hg] Krislyn Aberegg PA Work Phone: [facility] 10-06-2023 11:07-0400 Body height 162.6 cm Christo Warren MD Work Phone: [facility] 10-06-2023 11:07-0400 Body mass index (BMI) [Ratio] 34.67 kg/m2 Christo Warren MD Work Phone: [facility] 10-06-2023 11:07-0400 Body weight 91.63 kg Christo Warren MD Work Phone: [facility] 10-06-2023 11:07-0400 Diastolic blood pressure 88 mm[Hg] Christo Warren MD Work Phone: [facility] 10-06-2023 11:07-0400 Heart rate 64 /min Christo Warren MD Work Phone: [facility] 10-06-2023 11:07-0400 SaO2% (BldA) [Mass fraction] 96 % Christo Warren MD Work Phone: [facility] 10-06-2023 11:07-0400 Systolic blood pressure 134 mm[Hg] Christo Warren MD Work Phone: [facility] 09-29-2023 15:49-0400 Body height 162.6 cm Bonny Omer LIFE COACH.PHOTOENGRAVING FINISHER Work Phone: [facility] 09-29-2023 15:49-0400 Body mass index (BMI) [Ratio] 34.33 kg/m2 Bonny Omer LIFE COACH.PHOTOENGRAVING FINISHER Work Phone: [facility] 09-29-2023 15:49-0400 Body temperature 97.59 [degF] Bonny Omer LIFE COACH.PHOTOENGRAVING FINISHER Work Phone: [facility] 09-29-2023 15:49-0400 Body weight 90.72 kg Bonny Omer LIFE COACH.PHOTOENGRAVING FINISHER Work Phone: [facility] 09-29-2023 15:49-0400 Diastolic blood pressure 72 mm[Hg] Bonny Omer LIFE COACH.PHOTOENGRAVING FINISHER Work Phone: [facility] 09-29-2023 15:49-0400 Heart rate 74 /min Bonny Omer LIFE COACH.PHOTOENGRAVING FINISHER Work Phone: [facility] 09-29-2023 15:49-0400 SaO2% (BldA) [Mass fraction] 100 % Bonny Omer LIFE COACH.PHOTOENGRAVING FINISHER Work Phone: [facility] 09-29-2023 15:49-0400 Systolic blood pressure 138 mm[Hg] Bonny Omer LIFE COACH.PHOTOENGRAVING FINISHER Work Phone: [facility] 09-08-2023 09:57-0400 Body height 162.6 cm Christo Warren MD Work Phone: [facility] 09-08-2023 09:57-0400 Body mass index (BMI) [Ratio] 33.99 kg/m2 Christo Warren MD Work Phone: [facility] 09-08-2023 09:57-0400 Body weight 89.81 kg Christo Warren MD Work Phone: [facility] 09-08-2023 09:57-0400 Diastolic blood pressure 82 mm[Hg] Christo Warren MD Work Phone: [facility] 09-08-2023 09:57-0400 Heart rate 65 /min Christo Warren MD Work Phone: [facility] 09-08-2023 09:57-0400 SaO2% (BldA) [Mass fraction] 98 % Christo Warren MD Work Phone: [facility] 09-08-2023 09:57-0400 Systolic blood pressure 146 mm[Hg] Christo Warren MD Work Phone: [facility] 02-24-2023 17:32-0500 Diastolic blood pressure 88 mm[Hg] Christo Warren MD Work Phone: [facility] 02-24-2023 17:32-0500 Systolic blood pressure 138 mm[Hg] Christo Warren MD Work Phone: [facility] 02-24-2023 16:57-0500 Body height 162.6 cm Christo Warren MD Work Phone: [facility] 02-24-2023 16:57-0500 Body weight 88.91 kg Christo Warren MD Work Phone: [facility] 02-24-2023 16:57-0500 Heart rate 79 /min Christo Warren MD Work Phone: [facility] 02-24-2023 16:57-0500 SaO2% (BldA) [Mass fraction] 96 % Christo Warren MD Work Phone: [facility] 03-31-2022 14:47-0500 Body temperature 98.01 [degF] Juan Carlos Andrae LIFE COACH.PHOTOENGRAVING FINISHER Work Phone: [facility] 03-31-2022 14:47-0500 Body weight 96.16 kg Juan Carlos Andrae LIFE COACH.PHOTOENGRAVING FINISHER Work Phone: [facility] 03-31-2022 14:47-0500 Diastolic blood pressure 82 mm[Hg] Juan Carlos Andrae LIFE COACH.PHOTOENGRAVING FINISHER Work Phone: [facility] 03-31-2022 14:47-0500 Heart rate 69 /min Juan Carlos Andrae LIFE COACH.PHOTOENGRAVING FINISHER Work Phone: [facility] 03-31-2022 14:47-0500 Respiratory rate 16 /min Juan Carlos Andrae LIFE COACH.PHOTOENGRAVING FINISHER Work Phone: [facility] 03-31-2022 14:47-0500 SaO2% (BldA) [Mass fraction] 98 % Juan Carlos Andrae LIFE COACH.PHOTOENGRAVING FINISHER Work Phone: [facility] 03-31-2022 14:47-0500 Systolic blood pressure 120 mm[Hg] Juan Carlos Andrae LIFE COACH.PHOTOENGRAVING FINISHER Work Phone: [facility] Encounters Encounter Date Encounter Type Care Provider Facility Start: 09-08-2024 End: 09-08-2024 [email or web address] Start: 09-08-2024 End: 09-08-2024 Patient encounter procedure Gabriella Diaz MA [facility] [place] Comment on above: Population Health Na vigation Outreach ([employer] [facility] [place] [facility] Start: 09-06-2024 End: 09-07-2024 ambulatory Msi Montgomery PT Work Phone: [facility] Comment on above: Posture abnormality [...] Start: 08-05-2024 End: 08-05-2024 ambulatory NIKKI JAVIER Facility:[facility] Start: 06-11-2024 End: 06-11-2024 ambulatory Elba Barron RN Work Phone: [employer] Comment on above: Initial enrollment o kendra for Chronic Disease Management Start: 05-10-2024 End: 05-10-2024 Telephone encounter Christo Warren MD Work Phone: [facility] Comment on above: Patient Request Start: 05-06-2024 End: 05-06-2024 ambulatory Alexandra Brantley MA [facility] [place] Start: 05-06-2024 End: 05-06-2024 Patient encounter procedure Alexandra Brantley MA [facility] Comment on above: Population Health Na vigation Outreach ([employer] High Risk Attempt #1 ) Start: 05-01-2024 End: 05-01-2024 ambulatory SELF Facility:[id number] Start: 05-01-2024 End: 05-01-2024 Patient encounter procedure Meron Cooper APRN.CNP Work Phone: [facility] Comment on above: Bronchitis (Primary Dx) Start: 04-19-2024 End: 04-19-2024 ambulatory NIKKI JAVIER Facility:[facility] Start: 04-19-2024 End: 04-19-2024 Patient encounter procedure Nikki Javier MD Work Phone: Neurology Comment on above: Parkinson's disease without dyskinesia or fluctuating manifestations (HCC) (Primary Dx); RLS (restless legs syndrome) Start: 04-12-2024 End: 04-12-2024 ambulatory CHRISTO WARREN Facility:[facility] Start: 04-12-2024 End: 04-12-2024 Patient encounter procedure Christo Warren MD Work Phone: [facility] Comment on above: Essential hypertensi on (Primary Dx); Anxiety and depression; Parkinson's disease, unspecified whether dyskinesia present, unspecified whether manifestations fluctuate (HCC); History of colonic polyps Start: 03-29-2024 End: 03-29-2024 ambulatory CHRISTO WARREN Facility:[facility] Start: 03-10-2024 End: 03-10-2024 Refill Christo Warren MD Work Phone: [facility] Comment on above: Refill Request Start: 02-13-2024 ambulatory [facility] Facility:[facility] Start: 02-13-2024 End: 02-13-2024 ambulatory [facility] Facility:[facility] Start: 01-15-2024 End: 01-15-2024 Telephone encounter Christo Warren MD Work Phone: [facility] Comment on above: Orders Start: 01-15-2024 ambulatory [facility] Facility:[facility] Start: 01-05-2024 ambulatory [facility] Facility:[facility] Start: 12-31-2023 End: 02-09-2024 Admission to same day surgery center [facility] Provider General Surgery Comment on above: COLON INFO Start: 12-31-2023 End: 02-09-2024 E-mail encounter from caregiver [facility] Provider General Surgery Start: 12-01-2023 End: 12-01-2023 Telephone encounter Rachel Martins APRN.CNP Work Phone: [facility] [place] Comment on above: Blood Pressure Check Start: 12-01-2023 End: 12-01-2023 ambulatory RACHEL MARTINS Facility:[facility] Start: 12-01-2023 End: 12-01-2023 Patient encounter procedure Rachel Janell Lakshmi COLE.PHOTOENGRAVING FINISHER Work Phone: [facility] [place] Comment on above: Essential hypertensi on (Primary Dx) Start: 11-20-2023 End: 11-20-2023 Telephone encounter Christo Warren MD Work Phone: [facility] [place] Comment on above: Patient Question Start: 11-20-2023 End: 11-20-2023 ambulatory RACHEL RANKINR Facility:[facility] Start: 11-20-2023 End: 11-20-2023 Patient encounter procedure Rachel Maciel Lakshmi LIFE COACH.PHOTOENGRAVING FINISHER Work Phone: [facility] [place] Comment on above: Acute cough (Primary Dx); Essential hypertension Start: 11-17-2023 End: 11-17-2023 ambulatory NIKKI JAVIER Facility:[facility] Start: 11-17-2023 End: 11-17-2023 Patient encounter procedure Nikki Javier MD Work Phone: Neurology Comment on above: Parkinson's disease without dyskinesia or fluctuating manifestations (HCC) (Primary Dx) Start: 11-11-2023 End: 11-11-2023 ambulatory CHRISTO WARREN Facility:[facility] Start: 11-11-2023 End: 11-11-2023 Patient encounter procedure Israel CAMPBELL Work Phone: [facility] Comment on above: Acute otitis media, right (Primary Dx); Acute cough Start: 10-06-2023 End: 10-06-2023 ambulatory CHRISTO WARREN Facility:[facility] Start: 10-06-2023 End: 10-06-2023 Patient encounter procedure Christo Warren MD Work Phone: [facility] [place] Comment on above: Essential hypertensi on (Primary Dx) Start: 10-01-2023 End: 01-27-2024 Telephone encounter Bonny Bains APRN.PHOTOENGRAVING FINISHER Work Phone: General Surgery Comment on above: Appointment Start: 09-29-2023 End: 09-29-2023 ambulatory BONNY BAINS Facility:[facility] Start: 09-29-2023 End: 09-29-2023 Patient encounter procedure Bonny Bains LIFE COACHSandroPHOTOENGRAVING FINISHER Work Phone: General Surgery Comment on above: FH: colon cancer in first degree relative <60 years old (Primary Dx); History of colonic polyps Start: 09-08-2023 Telephone encounter Christo Warren MD Work Phone: [facility] [place] Comment on above: Patient Question Start: 09-08-2023 End: 09-08-2023 ambulatory CHRISTO WARREN Facility:[facility] Start: 09-08-2023 End: 09-08-2023 Patient encounter procedure Christo Warren MD Work Phone: [facility] [place] Comment on above: Essential hypertensi on (Primary Dx); Anxiety and depression; RLS (restless legs syndrome); Screening for prostate cancer; Elevated PSA; History of colonic polyps; Gait disorder; Bradykinesia Start: 09-01-2023 Refill Christo Warren MD Work Phone: [facility] [place] Comment on above: Medication Question Start: 07-29-2023 Refill Christo Warren MD Work Phone: [facility] Comment on above: Refill Request Lab Orders Start: 03-04-2023 Telephone encounter Christo Warren MD Work Phone: [facility] Comment on above: Results Start: 02-28-2023 ambulatory Christo Warren MD Work Phone: [facility] Start: 02-24-2023 End: 02-24-2023 Patient encounter procedure Christo Warren MD Work Phone: [facility] [facility] Comment on above: RLS (restless legs s yndrome) (Primary Dx); Hyperbilirubinemia; Abnormal blood cell count; Elevated PSA; Primary hypertension Start: 02-03-2023 Refill Christo Warren MD Work Phone: [facility] [place] Comment on above: Refill Request (SEE RX NOTES) Start: 01-24-2023 ambulatory Xochitl Justin ([facility] [place] Comment on above: Population Health Na vigation Outreach ([employer] care gaps) Start: 01-20-2023 Telephone encounter Christo Warren MD Work Phone: [facility] [place] Comment on above: Results Start: 01-14-2023 Telephone encounter Christo Warren MD Work Phone: [facility] [place] Comment on above: Medication Problem ( Gabapentin) Start: 01-08-2023 Telephone encounter Christo Warren MD Work Phone: [facility] [place] Start: 01-07-2023 ambulatory Christo Warren MD Work Phone: [facility] [place] Comment on above: Sleep Problem unable to sleep Start: 09-13-2022 ambulatory Katrina Tovar [facility] [place] Comment on above: Population Health Na vigation Outreach ([employer] Care Gaps 5.30.23) Start: 04-05-2022 Refill Christo Warren MD Work Phone: [facility] Comment on above: Refill Request Start: 04-02-2022 ambulatory Chirsto Warren MD Work Phone: [facility] Comment on above: Allied Health Visit (Medication Adherence Outreach) Start: 03-31-2022 End: 03-31-2022 Patient encounter procedure Juan Carlos Abebe LIFE COACH.PHOTOENGRAVING FINISHER Work Phone: [facility] Comment on above: Tooth ache (Primary Dx) Start: 12-17-2021 ambulatory [facility] [place] Comment on above: Population Health Na vigation Outreach ([employer] Care Gaps) Start: 11-07-2021 Refill Christo Warren MD Work Phone: [employer] Specialist Management Comment on above: Refill Request Start: 05-01-2020 End: 05-01-2020 Subsequent hospital visit by physician Silke [facility] [place] Work Phone: Radiology Comment [...] 02-12-2029 Screening for malignant neoplasm of colon [facility] Start: 2028 RSV Vaccine (1 - 1-dose 75+ series) RSV Vaccine (1 - 1-dose 75+ series) [facility] Start: 01-21-2028 Lipid 1996 panel - Serum or Plasma Lipid Screening [facility] Start: 01-21-2028 Lipid panel Lipid Screening [facility] Start: 01-20-2026 Diabetes Screening Diabetes Screening [facility] Start: 04-12-2025 Annual PCP Team Chronic Disease Visit Annual PCP Team Chronic Disease Visit [facility] Start: 04-12-2025 Covid-19 Vaccine ( season) Covid-19 Vaccine ( season) [facility] Comment on above: Postponed from 11/23/2023 (Declined at t his time) Start: 04-12-2025 Pneumococcal Vaccine: 50+ (1 of 1 - PCV) Pneumococcal Vaccine: 50+ (1 of 1 - PCV) [facility] Comment on above: Postponed from 06/20/2003 (Declined at t his time) Start: 04-12-2025 Shingrix Vaccine (1 of 2) Shingrix Vaccine (1 of 2) [facility] Comment on above: Postponed from 06/20/2003 (Declined at t his time) Start: 04-12-2025 Urine microalbumin profile DTaP,Tdap,Td Vaccine (1 - Tdap) [facility] Comment on above: Postponed from 1972 (Declined at t his time) Start: 02-21-2025 End: 02-21-2025 Patient encounter procedure Neurology Comment on above: 5 Month follow up Start: 11-30-2024 Annual PCP Team Chronic Disease Visit Annual PCP Team Chronic Disease Visit [facility] Start: 11-22-2024 Influenza vaccination Influenza Vaccine (Season Ended) [facility] Start: 11-19-2024 Annual PCP Team Chronic Disease Visit Annual PCP Team Chronic Disease Visit [facility] Start: 11-16-2024 End: 11-16-2024 Patient encounter procedure 11/16/2024 8:40 AM EDT Office Visit [facility] [address] [place] [address] Christo Warren MD [address] [facility] [place] [phone] Follow up - BP [facility] Comment on above: Follow up - BP Start: 10-18-2024 End: 10-18-2024 Patient encounter procedure 10/18/2024 11:00 AM EDT Office Visit Neurology [address] [place] [phone] Nikki Javier MD [address] [place], [place] [phone] 6m follow up Neurology Comment on above: 6m follow up Start: 10-05-2024 Annual PCP Team Chronic Disease Visit Annual PCP Team Chronic Disease Visit [facility] Start: 09-20-2024 Influenza vaccination Influenza Vaccine (#1) [facility] Comment on above: Postponed from 11/23/2023 (Declined at t his time) Start: 09-07-2024 Annual PCP Team Chronic Disease Visit Annual PCP Team Chronic Disease Visit [facility] Start: 09-06-2024 End: 09-06-2024 ambulatory 09/06/2024 4:30 PM EDT OT/PT/Speech Visit [facility] [address] [place] [address] Mis Montgomery, PT [address] [place], [place] [id number] Parkinson's disease without dyskinesia or fluctuating manifestations (HCC) [G20.A1] [facility] Comment on above: Parkinson's disease without dyskinesia o r fluctuating manifestations (HCC) [G20.A1] Start: 08-10-2024 End: 11-09-2024 Comprehensive metabolic 2000 panel - Serum or Plasma COMPREHENSIVE METABOLIC PANEL Lab Routine Essential hypertension Expected: 08/10/2024, Expires: 11/09/2024 [facility] Work Phone: Comment on above: Expected: 08/10/2024, Expires: Start: 08-10-2024 End: 11-09-2024 Lipid 1996 panel - Serum or Plasma LIPID PANEL BASIC Lab Routine Essential hypertension Expected: 08/10/2024, Expires: 11/09/2024 [facility] Comment on above: Expected: 08/10/2024, Expires: Start: 07-15-2024 End: 10-14-2024 Comprehensive metabolic 2000 panel - Serum or Plasma COMPREHENSIVE METABOLIC PANEL Lab Routine Screening for malignant neoplasm of prostate Elevated PSA Essential hypertension Expected: 07/15/2024, Expires: 10/14/2024 [facility] Comment on above: Expected: 07/15/2024, Expires: Start: 07-15-2024 End: 10-14-2024 Lipid 1996 panel - Serum or Plasma LIPID PANEL BASIC Lab Routine Screening for malignant neoplasm of prostate Elevated PSA Essential hypertension Expected: 07/15/2024, Expires: 10/14/2024 [facility] Comment on above: Expected: 07/15/2024, Expires: Start: 04-19-2024 End: 04-19-2024 Patient encounter procedure 04/19/2024 11:30 AM EST Office Visit Neurology [address] [place] [phone] Nikki Javier MD [address] [place] [address] Four month follow up Neurology Comment on above: Four month follow up Start: 04-12-2024 End: 04-12-2024 Patient encounter procedure 04/12/2024 8:40 AM EST Office Visit [facility] [place] [address] [place] [phone] Christo Warren MD [address] [place] [phone] 6 month follow up [facility] [place] Comment on above: 6 month follow up Start: 03-24-2024 Medicare Advantage Annual Wellness Visit Medicare Advantage Annual Wellness Visit [facility] Start: 02-25-2024 Annual PCP Team Chronic Disease Visit Annual PCP Team Chronic Disease Visit [facility] Start: 02-25-2024 Covid-19 Vaccine ( season) Covid-19 Vaccine ( season) [facility] Comment on above: Postponed from 11/22/2022 (Declined at t his time) Start: 02-25-2024 Pneumococcal Vaccine: 65+ (1 - PCV) Pneumococcal Vaccine: 65+ (1 - PCV) [facility] Comment on above: Postponed from 2018 (Declined at t his time) Start: 02-25-2024 Pneumococcal Vaccine: 65+ (1 of 1 - PCV) Pneumococcal Vaccine: 65+ (1 of 1 - PCV) [facility] Comment on above: Postponed from 2018 (Declined at t his time) Start: 02-25-2024 RSV Vaccine (1 - 1-dose 60+ series) RSV Vaccine (1 - 1-dose 60+ series) [facility] Comment on above: Postponed from 2013 (Declined at t his time) Start: 02-25-2024 Shingrix Vaccine (1 of 2) Shingrix Vaccine (1 of 2) [facility] Comment on above: Postponed from 06/20/2003 (Declined at t his time) Start: 02-25-2024 Urine microalbumin profile DTaP,Tdap,Td Vaccine (1 - Tdap) [facility] Comment on above: Postponed from 1972 (Declined at t his time) Start: 01-15-2024 End: 04-15-2024 CBC W Auto Differential panel - Blood COMPLETE BLOOD COUNT AND DIFFERENTIAL Lab Routine Screening for malignant neoplasm of prostate Elevated PSA Essential hypertension Expected: 01/15/2024, Expires: 04/15/2024 [facility] Work Phone: Comment on above: Expected: 01/15/2024, Expires: Start: 01-15-2024 End: 04-15-2024 Prostate Specific Ag Free [Mass/volume] in Serum or Plasma PROSTATE SPECIFIC ANTIGEN, FREE Lab Routine Screening for malignant neoplasm of prostate Elevated PSA Essential hypertension Expected: 01/15/2024, Expires: 04/15/2024 [facility] Comment on above: Expected: 01/15/2024, Expires: Start: 01-10-2024 Annual PCP Team Chronic Disease Visit Annual PCP Team Chronic Disease Visit [facility] Start: 12-01-2023 End: 12-01-2023 Patient encounter procedure 12/01/2023 11:40 AM EDT Office Visit [facility] [place] [address] [facility] [place], [place] [phone] Rachel Martins, LIFE COACH.PHOTOENGRAVING FINISHER [address] [facility], [place] [phone] bp check [facility] [place] Comment on above: bp check Start: 11-23-2023 Covid-19 Vaccine ( season) Covid-19 Vaccine () [facility] Start: 11-23-2023 Covid-19 Vaccine () Covid-19 Vaccine () [facility] Start: 11-23-2023 Influenza vaccination [facility] Start: 11-17-2023 End: 11-17-2023 Patient encounter procedure 11/17/2023 2:00 PM EDT Office Visit Neurology [address] [place] [phone] Nikki Javier MD [address] [place] [address] 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] Neurology Comment on above: 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] Start: 10-06-2023 End: 10-06-2023 Patient encounter procedure 10/06/2023 11:20 AM EDT Office Visit [facility] [place] [address] [facility], [place] [address] Christo Warren MD [address] [place], [place] [phone] 4 week follow up [facility] [place] Comment on above: 4 week follow up Start: 09-29-2023 End: 09-29-2023 Patient encounter procedure 09/29/2023 4:00 PM EDT Office Visit General Surgery [address] [place] [address] Eulalio Mohan MD [address] [place] [address] History of colonic polyps [Z86.010] General Surgery Comment on above: History of colonic polyps [Z86.010] Start: 09-21-2023 Influenza vaccination Influenza Vaccine (#1) [facility] Comment on above: Postponed from 11/22/2022 (Declined at t his time) Start: 09-08-2023 End: 12-08-2023 Prostate Specific Ag Free [Mass/volume] in Serum or Plasma PROSTATE SPECIFIC ANTIGEN, FREE Lab Routine Screening for prostate cancer Elevated PSA Expected: 09/08/2023, Expires: 12/08/2023 [facility] Work Phone: Comment on above: Expected: 09/08/2023, Expires: Start: 09-08-2023 End: 12-08-2023 PSA/PROSTATE SPECIFIC ANTIGEN SCREENING PSA/PROSTATE SPECIFIC ANTIGEN SCREENING Lab Routine Screening for prostate cancer Elevated PSA Expected: 09/08/2023, Expires: 12/08/2023 [facility] Comment on above: Expected: 09/08/2023, Expires: Start: 09-08-2023 End: 09-08-2023 Patient encounter procedure 09/08/2023 10:00 AM EDT Office Visit [facility] [address] [place] [address] Christo Warren MD [address] [facility] [place], [place] [phone] 6 month follow up [facility] Comment on above: 6 month follow up Start: 03-24-2023 Advance Directive Discussion Advance Directive Discussion [facility] Start: 03-04-2023 End: 06-03-2023 CBC W Ordered Manual Differential panel - Blood PATHOLOGIST INTERPRETATION WITH CBC AND DIFF Lab Routine Hyperbilirubinemia Expected: 03/04/2023, Expires: 06/03/2023 [facility] Work Phone: Comment on above: Expected: 03/04/2023, Expires: Start: 03-04-2023 End: 06-03-2023 Hepatic function 2000 panel - Serum or Plasma HEPATIC FUNCTION PNL Lab Routine Hyperbilirubinemia Expected: 03/04/2023, Expires: 06/03/2023 [facility] Work Phone: Comment on above: Expected: 03/04/2023, Expires: 4 Start: 03-04-2023 End: 06-03-2023 bilirubin panel [Mass/volume] - Serum or Plasma BILIRUBIN FRACTION Lab Routine Hyperbilirubinemia Expected: 03/04/2023, Expires: 06/03/2023 [facility] Work Phone: Comment on above: Expected: 03/04/2023, Expires: 4 Start: 03-04-2023 End: 06-03-2023 RETIC COUNT RETIC COUNT Lab Routine Hyperbilirubinemia Expected: 03/04/2023, Expires: 06/03/2023 [facility] Work Phone: Comment on above: Expected: 03/04/2023, Expires: 4 Start: 01-20-2023 End: 04-21-2023 CBC W Auto Differential panel - Blood CBC + DIFF Lab Routine Abnormal blood cell count Expected: 01/20/2023, Expires: 04/21/2023 [facility] Work Phone: Comment on above: Expected: 01/20/2023, Expires: 4 Start: 01-20-2023 End: 04-21-2023 bilirubin panel [Mass/volume] - Serum or Plasma BILIRUBIN FRACTION Lab Routine Hyperbilirubinemia Expected: 01/20/2023, Expires: 04/21/2023 [facility] Work Phone: Comment on above: Expected: 01/20/2023, Expires: 4 Start: 12-19-2022 COLORECTAL CANCER SCREENING COLORECTAL CANCER SCREENING [facility] Start: 12-19-2022 FECAL OCCULT BLOOD FECAL OCCULT BLOOD [facility] Start: 12-19-2022 Screening for malignant neoplasm of colon [facility] Start: 11-22-2022 Covid-19 Vaccine () Covid-19 Vaccine () [facility] Start: 11-22-2022 Influenza vaccination [facility] Start: 11-19-2022 ANNUAL PCP TEAM CHRONIC DISEASE VISIT ANNUAL PCP TEAM CHRONIC DISEASE VISIT [facility] Start: 07-15-2022 Screening for malignant neoplasm of colon [facility] Start: 03-24-2022 ADVANCE DIRECTIVE DISCUSSION ADVANCE DIRECTIVE DISCUSSION [facility] Start: 03-12-2022 BP CONTROLLED (<130/80) BP CONTROLLED (<130/80) [facility] Start: 11-22-2021 Influenza vaccination INFLUENZA (#1) [facility] Start: 05-26-2021 COVID-19 VACCINE (4 - Booster for Moderna series) COVID-19 VACCINE (4 - Booster for Moderna series) [facility] Start: 05-01-2021 ANNUAL PCP TEAM CHRONIC DISEASE VISIT ANNUAL PCP TEAM CHRONIC DISEASE VISIT [facility] Start: 03-24-2021 ADVANCE DIRECTIVE DISCUSSION ADVANCE DIRECTIVE DISCUSSION [facility] Start: 11-24-2020 COVID-19 VACCINE (3 - Booster for Moderna series) COVID-19 VACCINE (3 - Booster for Moderna series) [facility] Start: 08-30-2020 Lipid 1996 panel - Serum or Plasma Lipid Screening [facility] Start: 08-30-2020 LIPID SCREEN LIPID SCREEN [facility] Start: 08-30-2020 PROSTATE CANCER SCREENING DISCUSSION PROSTATE CANCER SCREENING DISCUSSION [facility] Start: 07-16-2019 Colonoscopy COLONOSCOPY [facility] Start: 07-16-2019 COLORECTAL CANCER SCREENING COLORECTAL CANCER SCREENING [facility] Start: 10-30-2018 BP CONTROLLED (<130/80) BP CONTROLLED (<130/80) [facility] Start: 08-30-2018 DIABETES SCREEN DIABETES SCREEN [facility] Start: 08-30-2018 Diabetes Screening Diabetes Screening [facility] Start: 07-15-2018 Colonoscopy COLONOSCOPY [facility] Start: 07-15-2018 Screening for malignant neoplasm of colon Colonoscopy [facility] Start: 2018 Pneumococcal Vaccine: 65+ (1 - PCV) Pneumococcal Vaccine: 65+ (1 - PCV) [facility] Start: 2018 PNEUMOCOCCAL: 65+ (1 - PCV) PNEUMOCOCCAL: 65+ (1 - PCV) [facility] Start: 2013 RSV Vaccine (1 - 1-dose 60+ series) RSV Vaccine (1 - 1-dose 60+ series) [facility] Start: 06-20-2003 Pneumococcal Vaccine: 50+ (1 of 1 - PCV) Pneumococcal Vaccine: 50+ (1 of 1 - PCV) [facility] Start: 06-20-2003 SHINGRIX VACCINE (1 of 2) SHINGRIX VACCINE (1 of 2) [facility] Start: 1998 COLOGUARD (FIT-DNA) COLOGUARD (FIT-DNA) [facility] Start: [address] COLONOGRAPHY [facility] Start: 1998 FECAL OCCULT BLOOD FECAL OCCULT BLOOD [facility] Start: 1998 Screening for malignant neoplasm of colon [facility] Start: 1998 SIGMOIDOSCOPY SIGMOIDOSCOPY [facility] Start: 1972 Urine microalbumin profile [facility] Hemoglobin.gastroint est inal.lower [Presence] in Stool by Immunoassay FECAL OCCULT BLOOD TEST Lab Routine Screening for colon cancer Ordered: 01/24/2023 [facility] Work Phone: Comment on above: Ordered: 01/24/2023 [facility] Immunizations Immunization Date Immunization Notes Care Provider Drew rodriguez 10-30-2017 influenza virus vacc ine, unspecified formulation Christo Warren MD Work Phone: [facility] Payers Date Payer Category Payer Medicare (Managed Care) KERWIN TOM [id number] 2024 Self-pay 2024 Unknown [id number] 2020 Medicare [id number] 2020 Private Health Insurance [id number] Unknown [id number] Unknown [id number] Unknown [id number] Unknown [id number] Social History Date Type Detail Facility Start: 08-26-2017 End: 11-19-2021 Tobacco smoking status [facility] Never smoked tobacco [facility] Start: 08-26-2017 End: 11-19-2021 Tobacco use and exposure Smokeless tobacco non-user [facility] Start: 05-01-2020 End: 03-12-2021 Alcohol intake Current drinker of alcohol (finding) [facility] Start: 08-14-2015 History SDOH Alcohol Comment occasionally [facility] Start: 1955 Sex Assigned At Male [facility] Start: 04-01-2020 End: 11-13-2021 Exposure to SARS-CoV-2 (event) Not sure [facility] Work Phone: Start: 11-14-2021 History SDOH Alcohol Frequency 3 [facility] Start: 11-14-2021 History SDOH Alcohol Std Drinks 1 [facility] Start: 11-14-2021 History SDOH Social Connections Phone 4 [facility] Start: 11-14-2021 History SDOH Social Connections Get Together 5 [facility] Start: 11-14-2021 History SDOH Stress 2 [facility] Start: 11-14-2021 End: 01-08-2023 History of Social function [facility] Start: 11-14-2021 End: 01-08-2023 Social connection and isolation panel [facility] Active Member of [facility] [place] bs or Organizations Not on file [facility] Are you now , , , , never or living with a partner? [facility] How often to you hav e a drink containing alcohol? 2-4 times a month [facility] How many standard dr inks containing alcohol do you have on a typical day? 1 or 2 [facility] How often do you hav e 6 or more drinks on 1 occasion? Never [facility] Do you feel stress - tense, restless, nervous, or anxious, or unable to sleep at night because your mind is troubled all the time - these days [OSQ] Only a little [facility] (I/We) worried luis f er (my/our) food would run out before (I/we) got money to buy more. Never true [facility] In the past 12 month s, was there a time when you were not able to pay the mortgage or rent on time? No [facility] Start: 04-25-2020 Gender identity Identifies as male gender (finding) [facility] Start: 04-25-2020 Sexual orientation Heterosexual (finding) [facility] Start: 03-31-2023 End: 08-05-2024 Alcohol intake Ex-drinker (finding) [facility] Functional Status Date Assessment Result Facility 04-07-2014 Are you deaf, or do you have serious difficulty hearing No 04/07/2014 12:13 PM Seven Odom LPN No [facility] 04-07-2014 Are you blind, or do you have serious difficulty seeing, even when wearing glasses No 04/07/2014 12:13 PM Seven Odom LPN No [facility] 04-07-2014 Do you have serious difficulty walking or climbing stairs No 04/07/2014 12:13 PM Seven Odom LPN No [facility] 04-07-2014 Do you have difficul ty dressing or bathing No 04/07/2014 12:13 PM Seven Odom LPN [facility] 04-07-2014 Because of a physica l, mental, or emotional condition, do you have difficulty doing errands alone such as visiting a physician's office or shopping No 04/07/2014 12:13 PM Seven Odom LPN No [facility] Mental Status Date Assessment Result Facility 04-07-2014 Because of a physica l, mental, or emotional condition, do you have serious difficulty concentrating, remembering, or making decisions No 04/07/2014 12:13 PM Seven Odom LPN No [facility] Clinical Notes 09-09-2017 to 09-08-2024 Gabriella Diaz MA - 09/08/2024 2:35 PM Mis Lezama, PT - 09/06/2024 7:18 PM Mis Lezama, PT - 09/06/2024 6:44 PM EDTTelephone Encounter - Nikki Javier MD - 08/18/2024 11:33 AM EDT Note Date & Type Note Facility 09-08-2024 History of Present illness Narrative POPULATION HEALTH NAVIGATION OUTREACH Action/FYI [facility] for below and needs [...] Patient scheduled/pended orders: Follow-up Appointment 11/16/2024 in [facility] with CHRISTO WARREN - Follow up - BP, Please address due care 02/21/2025 in [facility] with NIKKI JAVIER - 5 Month follow up Navigation Signature: Gabriella Diaz MA September 08, 2024 2:35 PM documented in this encounter [facility] 09-06-2024 History of Present illness Narrative Program_ID:[id number] Access Code: [email or web address] URL: [email or web address] Date: 09-06-2024 Prepared By: Mis Montgomery Program [...] Planned: 6 Planned Treatment Interventions: Therapeutic exercise (13536), Neuromuscular re-education (61227), Therapeutic activities (07081), Self-snf management (72432), Gait Training (05195), Patient/Family/Caregiver Education, Body Mechanics Training PLAN FOR [...] (RLS) Right or Left Handed: Right 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 [facility] 08-18-2024 Telephone encounter Note This RN placed call back to patient and relayed that TW would like him to stay at current dose that he feels good at (1 tablet BID). No need to continue the titration. Pt appreciated call back to verify. We ended call pleasantly. GAY Moy, RN, BA [facility] Work Phone: 08-18-2024 Miscellaneous Notes This RN [...] the day. Last Office Visit: 08/05/2024 Last [facility] visit: Visit date not found Next scheduled appointment: 02/21/2025 Best number to reach caller: [phone] Best time to reach caller: any Is it OK to leave a detailed voice message? Yes Roberta Paris documented in this encounter [facility] 08-18-2024 Telephone encounter Note May have miscommunicated, he doesn't need to stop it, only stop the titration at the dose that is helping and then continue on that dose rather than continuing to increase. If he feels good on 1 pill twice a day should stay on that dose. [facility] 08-18-2024 Telephone encounter Note This RN called [...] ended call pleasantly. GAY Moy, RN, BA [facility] 08-18-2024 Telephone encounter Note Thanks for the [...] to make sure he remembers! Thanks T [facility] 08-18-2024 Telephone encounter Note Call received for [...] day. Last Office Visit: 08/05/2024 Last [facility] visit: Visit date not found Next scheduled appointment: 02/21/2025 Best number to reach caller: [phone] Best time to reach caller: any Is it OK to leave a detailed voice message? Yes oRberta Paris T [facility] 08-05-2024 Instructions Nkiki Javier MD - 08/05/2024 12:22 PM EDT [...] around 9-10 PM. documented in this encounter [facility] 08-05-2024 Note HNO ID: [id number] Author: NIKKI JAVIER MD Service: ? Author [...] timing. Gave info on PD research at [facility]. HPI Current Issues - Has been [...] Discussed with Patient: YES Nikki Javier MD [facility] Neurology [facility] 08-05-2024 History of Present illness Narrative [...] timing. Gave info on PD research at [facility]. HPI Current Issues - Has been [...] Discussed with Patient: YES Nikki Javier MD [facility] Neurology documented in this encounter [facility] 08-05-2024 Note HNO ID: [id number] Author: KACY WOOD LPN Service: ? Author Type: LICENSED NURSE Type: Progress Notes Filed: 08/05/2024 15:11 Note Text: [facility] 07-19-2024 Note HNO ID: [id number] Author: ANTIONE OSWALD CPhT Service: ? Author Type: Bus Dispatcher [place] Type: Progress Notes Filed: 07/19/2024 10:55 Note [...] Oswald CPhT [facility] Based Care Pharmacy Team [facility] 07-19-2024 Note Patient Outreach ( PO) MARKUS STRATTON ([id number]) 1955 [facility] Date Time Provider Department 07/19/24 CHRISTO WARREN [...] 07/19/24 for 90 days Antione Oswald CPhT [facility] Team Allergies As of Date: 07/19/2024 (No Known Allergies) Date Reviewed: 05/01/2024 Reviewed by: Meron Cooper APRN.PHOTOENGRAVING FINISHER - Fully Assessed Reason for Visit: Allied [...] Encounter Status:Closed by ANTIONE OSWALD on 07/19/24 [facility] 06-11-2024 Note HNO ID: [id number] Author: ELBA BARRON RN Service: ? Author [...] Barron RN June 11, 2024 11:11 AM [facility] 06-11-2024 History of Present illness Narrative [...] 2024 11:11 AM documented in this encounter [facility] 06-11-2024 Note Patient Outreach ([facility]) MARKUS STRATTON ([id number]) 1955 [facility] Date Time Provider Department 06/11/24 ELBA BARRON [...] Date Reviewed: 05/01/2024 Reviewed by: Meron Cooper APRN.PHOTOENGRAVING FINISHER - Fully Assessed Prescriptions as of 06/11/2024 [...] Encounter Status:Closed by ELBA BARRON on 06/11/24 [facility] 05-10-2024 Miscellaneous Notes Patient notified. Given his parkinson's issues and bp, we are limited with cough meds. Almost all the cough meds are now over the counter. I would recommend sticking with delsym or mucinex dm Patient calling to request different cough medication. Patient was seen at [facility]gent [facility] on 05/01/24 for cough and azithromycin [...] headache dizziness, wheezing or SOB. Uses [facility]. Please call patient with PCP response. [phone] Ignacia Bryant RN documented in this encounter [facility] 05-10-2024 Telephone encounter Note Patient notified. [facility] 05-10-2024 Telephone encounter Note Given his parkinson's issues and bp, we are limited with cough meds. Almost all the cough meds are now over the counter. I would recommend sticking with delsym or mucinex dm [facility] 05-10-2024 Telephone encounter Note Patient calling to request different cough medication. Patient was seen at [facility] Ur[facility] on 05/01/24 for cough and azithromycin [...] headache dizziness, wheezing or SOB. [facility]ses [facility]. Please call patient with PCP response. [phone] Ignacia Bryant RN [facility] 05-06-2024 Note HNO ID: [id number] Author: ALEXANDRA BRANTLEY MA Service: ? Author Type: Melter Assistant Type: Progress Notes Filed: 05/06/2024 15:53 Note Text: POPULATION HEALTH NAVIGATION OUTREACH Action/FYI Spoke to patient. He declines scheduling Annual Wellness. He states he had a colonoscopy two months ago at [facility]. Found report in Scanned documents and [...] Brantley MA May 06, 2024 3:51 PM [facility] 05-06-2024 History of Present illness Narrative POPULATION HEALTH NAVIGATION OUTREACH Action/FYI Spoke to patient. He declines scheduling Annual Wellness. He states he had a colonoscopy two months ago at [facility]. Found report in Scanned documents and [...] 2024 3:51 PM documented in this encounter [facility] 05-06-2024 Note Patient Outreach (JENIFER HAGAN) MARKUS STRATTON ([id number]) 1955 M T Date Time Provider Department 05/06/24 ALEXANDRA BRANTLEY During your visit today, we recorded the following information about you: Alexandra Brantley MA 05/06/2024 3:53 PM Signed POPULATION HEALTH NAVIGATION OUTREACH Action/FYI Spoke to patient. He declines scheduling Annual Wellness. He states he had a colonoscopy two months ago at [facility]. Found report in Scanned documents and [...] Date Reviewed: 05/01/2024 Reviewed by: Meron Cooper APRN.PHOTOENGRAVING FINISHER - Fully Assessed Reason for Visit: Population [...] Encounter Status:Closed by ALEXANDRA BRANTLEY on 05/06/24 [facility] 05-01-2024 Note HNO ID: [id number] Author: MERON COOPER APRN.PHOTOENGRAVING FINISHER Service: ? Author Type: Nurse Practitioner Type: [...] go to ER for evaluation. Meron Cooper APRN.PHOTOENGRAVING FINISHER This note was partially generated using [employer] voice recognition system, and there may be some incorrect words, spellings, and punctuation that were not noted in checking the note before saving. 05-01-2024 History of Present illness Narrative Markus [...] APRN.CNP This note was partially generated using [employer] voice recognition system, and there may be some incorrect words, spellings, and punctuation that were not noted in checking the note before saving. documented in this encounter [facility] 05-01-2024 Instructions Meron Cooper APRN.CNP - 05/01/2024 [...] the emergency room. documented in this encounter [facility] 04-19-2024 Instructions Nikki Javier MD - 04/19/2024 [...] week then stop. documented in this encounter [facility] 04-19-2024 Note HNO ID: [id number] Author: NIKKI JAVIER MD Service: ? Author [...] timing. Gave info on PD research at [facility]. HPI Current Issues - No clear benefit to levodopa - No side effects - Takes first dose around 3590-8556, second dose around 5769-4491 Generally does not take the mid-day dose [...] identified. 04/19/2024 by MD Nikki Harrell MD [facility] Neurology [facility] 04-19-2024 History of Present illness Narrative [...] timing. Gave info on PD research at [facility]. HPI Current Issues - No clear benefit to levodopa - No side effects - Takes first dose around 5711-8504, second dose around 4157-1469 Generally does not take the mid-day dose [...] identified. 04/19/2024 by MD Nikki Harrell MD [facility] Neurology documented in this encounter [facility] 04-12-2024 History of Present illness Narrative Patient [...] Abs Lymph 1.00 - 4.00 k/uL 2.41 Lipscomb% % 6.4 Abs Lipscomb <0.87 k/uL 0.68 Eosin% % 1.2 Abs [...] 06/2017 COLONOSCOPY SCREENING 07/14/2017 Dr. Mohan @ [facility]; Ascending colon polyp x1, biopsy- tubular [...] in one month documented in this encounter [facility] 04-12-2024 Note HNO ID: [id number] Author: CHRISTO WARREN MD Service: ? Author [...] Abs Lymph 1.00 - 4.00 k/uL 2.41 Lipscomb% % 6.4 Abs Lipscomb <0.87 k/uL 0.68 Eosin% % 1.2 Abs [...] 06/2017 COLONOSCOPY SCREENING 07/14/2017 Dr. Mohan @ [facility]; Ascending colon polyp x1, biopsy- tubular [...] regular aerobic exer (more content not included)... [facility] 03-10-2024 Telephone encounter Note Prescription Refill [...] Jacinda Moy March 10, 2024 11:38 AM [facility] 03-10-2024 Miscellaneous Notes Prescription Refill Information The [...] 2024 11:38 AM documented in this encounter [facility] 02-13-2024 Note [facility] Medical Records Department [address] [place] [address] History Physical Exam 02/13/24 0840 MR#: [id number] Acct: [id number] Name: MARKUS STRATTON Rep #: [id number] : 1955 68 From: Mohan Adhikari MD PCP: Dr. Christo Warren MD Status:[facility] Location: [place] [address] HPI - General General Date of Service: [...] and that his output is now clear. [facility] Medical History (Updated 02/13/24 @ 08:43 [...] Age: 17 At age 17yrs, Treated at [facility] and [facility] Surgical History (Updated 02/12/24 @ 09:28 by Kelly Argueta) History of carpal tunnel surgery of right wrist History of carpal tunnel surgery of left wrist History of colonoscopy Social History (Updated 01/05/24 @ 11:16 by Jessica Abebe) current occupational status: employed current occupation: [employer] Smoking Status: Never smoker substance use type: [...] Disease: No Hx (more content not included)... [facility] 02-09-2024 Telephone encounter Note patient is scheduled at [facility] 02-13-2024 for his colonoscopy. Declined to schedule with [facility] Work Phone: 02-09-2024 Miscellaneous Notes patient is scheduled at [facility] 02-13-2024 for his colonoscopy. Declined to schedule with [facility] documented in this encounter [facility] 01-15-2024 Telephone encounter Note Pt notified that lab orders have been faxed to [facility] Anna Page MA January 15, 2024 11:47 AM [facility] 01-15-2024 Miscellaneous Notes Pt notified that lab orders have been faxed to [facility] Anan Page MA January 15, 2024 11:47 AM done Carlitos is calling Christo Warren MD today requesting order for routine blood work and PSA Please advise and return his call [phone] documented in this encounter [facility] 01-15-2024 Telephone encounter Note done [facility] 01-15-2024 Telephone encounter Note Carlitos is calling Christo Warren MD today requesting order for routine blood work and PSA Please advise and return his call [phone] [facility] 12-01-2023 Telephone encounter Note Spoke with patient. Given message from provider's office. Patient verbalizes understanding. Kobi Dejesus RN [facility] 12-01-2023 Miscellaneous Notes Spoke with patient. Given [...] up to date documented in this encounter [facility] 12-01-2023 Telephone encounter Note Left message to call office. 12/01/2023 1:31 PM Please schedule patient's 6 month follow up with Dr. Warren which is due in March 2024. [facility] 12-01-2023 Telephone encounter Note No medication changes. Follow-up with PCP as scheduled Rachel Martins APRN.CNP [facility] 12-01-2023 Telephone encounter Note BP Lara Serial, [...] Health Maintenance: Reviewed and up to date [facility] 12-01-2023 Note HNO ID: [id number] Author: IAM HUMPHRIES MA Service: ? Author Type: Melter Assistant Type: Progress Notes Filed: 12/01/2023 11:43 Note [...] Health Maintenance: Reviewed and up to date [facility] 12-01-2023 History of Present illness Narrative [...] up to date documented in this encounter [facility] 11-20-2023 Instructions Rachel Martins, LIFE COACH.[facility] - 11/20/2023 12:15 PM EDT CARE [...] questions or concerns documented in this encounter [facility] 11-20-2023 Note HNO ID: [id number] Author: RACHEL MARTINS APRN.ADRIENNE Service: ? Author Type: Nurse Practitioner Type: Progress Notes Filed: 11/20/2023 13:26 Note Text: CC: Patient presents with: runny nose, cough: Requesting another antibiotic HPI: Markus Stratton is a 68 year old male who presents to the office with above complaint He was seen in [facility] on 11/10 for three day history of [...] 07/14/2017: COLONOSCOPY SCREENING Comment: Dr. Mohan @ [facility]; Ascending colon polyp x1, biopsy- tubular [...] tenderness or frontal sinus tenderness. Mouth/Throat: Lips: Wilkerson. Mouth: Mucous membranes are moist. Pharynx: Oropharynx [...] illness - Rec (more content not included)... [facility] 11-20-2023 History of Present illness Narrative CC: Patient presents with: runny nose, cough: Requesting another antibiotic HPI: Markus Stratton is a 68 year old male who presents to the office with above complaint He was seen in [facility] on 11/10 for three day history [...] 07/14/2017: COLONOSCOPY SCREENING Comment: Dr. Mohan @ [facility]; Ascending colon polyp x1, biopsy- tubular [...] tenderness or frontal sinus tenderness. Mouth/Throat: Lips: Wilkerson. Mouth: Mucous membranes are moist. Pharynx: Oropharynx [...] Rachel Martins APRN.ADRIENNE documented in this encounter [facility] 11-20-2023 Telephone encounter Note Scheduled with Rachel. Patient was not happy about having to schedule another appt. Dina Moran MA [facility] 11-20-2023 Miscellaneous Notes Scheduled with Rachel. Patient [...] prescriptions as requested and contact him at [phone] once completed. Kemi Damico RN documented in this encounter [facility] 11-20-2023 Telephone encounter Note Agree. Needs seen if still ill, in office or urgent care(who can see him after hours) [facility] 11-20-2023 Telephone encounter Note Patient calls to request refill on amoxicillin and benzonatate for continued cough and runny nose. Recommended scheduling follow up appointment for re-eval from EC visit. 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 Requesting Dr. Warren send in prescriptions as requested and contact him at [phone] once completed. Kemi Damico RN [facility] 11-17-2023 Instructions Nikki Javier MD - 11/17/2023 [...] the Parkinson's. Consider looking into research at [facility]. documented in this encounter [facility] 11-17-2023 Note HNO ID: [id number] Author: NIKKI JAVIER MD Service: ? Author [...] who presents for (more content not included)... [facility] 11-17-2023 History of Present illness Narrative [...] timing. Gave info on PD research at [facility]. He should return to see me in 4 months. Nikki Javier MD [facility] Neurology documented in this encounter [facility] 11-11-2023 Note HNO ID: [id number] Author: ISRAEL ROQUE PA Service: ? Author Type: Physician Stapler Machine Type: Progress Notes Filed: 11/11/2023 17:49 Note [...] 07/14/2017: COLONOSCOPY SCREENING Comment: Dr. Mohan @ [facility]; Ascending colon polyp x1, biopsy- tubular [...] prompt ER ev (more content not included)... [facility] 11-11-2023 History of Present illness Narrative This note was created using [employer] Concierger[employer]. Subjective Markus Stratton is a 68 year [...] 07/14/2017: COLONOSCOPY SCREENING Comment: Dr. Mohan @ [facility]; Ascending colon polyp x1, biopsy- tubular [...] evaluation. SHANNAN Horton documented in this encounter [facility] 10-27-2023 Telephone encounter Note ----- Message ----- From: Bonny Bains APRN.CNP Sent: 09/29/2023 4:22 PM EDT To: [facility] [place] [facility] Schedule Pool Carlitos is going to call in to schedule (if he decides to move forward with colonoscopy). I didn't place order because I am unsure if he will choose MAC or IV sedation. He will need to hold his 325mg aspirin prior. Bonny Schwartz APRN.PHOTOENGRAVING FINISHER [facility] 10-27-2023 Miscellaneous Notes ----- Message ----- From: [...] hold his 325mg aspirin prior. Bonny Schwartz APRN.PHOTOENGRAVING FINISHER Patient to call when ready. Once patient calls order will be entered for correct anesthesia type [place] Last colonoscopy was done under MAC anesthesia at [facility]. The patient states I want to [...] prior to endoscopy documented in this encounter [facility] 10-06-2023 Note HNO ID: [id number] Author: CHRISTO WARREN MD Service: ? Author [...] 06/2017 COLONOSCOPY SCREENING 07/14/2017 Dr. Mohan @ [facility]; Ascending colon polyp x1, biopsy- tubular [...] - Continue current medications Christo Warren MD [facility] 10-06-2023 History of Present illness Narrative [...] 06/2017 COLONOSCOPY SCREENING 07/14/2017 Dr. Mohan @ [facility]; Ascending colon polyp x1, biopsy- tubular [...] Christo Warren MD documented in this encounter [facility] 10-01-2023 Telephone encounter Note Patient to call when ready. Once patient calls order will be entered for correct anesthesia type [place] [employer] [facility] 10-01-2023 Telephone encounter Note Last colonoscopy was done under MAC anesthesia at [facility]. The patient states I want to make sure I am OUT. He doesn't want to drive to [place]. We discussed the IV sedation here and he would like to think about where he would like to have scope done. He is going to call into the office once he decides. Carlitos is to hold his aspirin prior to endoscopy [facility] 09-29-2023 Nurse Note REVIEW OF SYSTEMS: General: [...] N/A Last Colonoscopy: 2017 Allyson Pollard RN [facility] 09-29-2023 Nurse Note REVIEW OF SYSTEMS: General: [...] Allyson Pollard RN documented in this encounter [facility] 09-26-2023 Note HNO ID: [id number] Author: BONNY BAINS APRN.PHOTOENGRAVING FINISHER Service: ? Author Type: Nurse Practitioner Type: Progress Notes Filed: 09/29/2023 16:22 Note Text: HISTORY AND PHYSICAL Markus Stratton : 1955 REFERRING PHYSICIAN: Christo Zaragoza [facility] [address] CHIEF COMPLAINT: Patient presents with: Consult: Colonoscopy [...] Last colonoscopy was with Dr. Mohan at [facility] in June 2017 Impression: 1. Cecum: [...] 06/2017 COLONOSCOPY SCREENING 07/14/2017 Dr. Mohan @ [facility]; Ascending colon polyp x1, biopsy- tubular [...] entered by the nurse and reviewed by md Nursing Notes: Allyson Pollard RN 09/29/2023 3:56 [...] diarrhea, denies los (more content not included)... [facility] 09-26-2023 History of Present illness Narrative HISTORY AND PHYSICAL Markus Stratton : 1955 REFERRING PHYSICIAN: Christo Zaragoza [facility] [address] CHIEF COMPLAINT: Patient presents with: Consult: Colonoscopy [...] Last colonoscopy was with Dr. Mohan at [facility] in June 2017 Impression: 1. Cecum: [...] 08/30/2015 COLONOSCOPY 06/2017 COLONOSCOPY SCREENING 07/14/2017 Dr. Moahn @ [facility]; Ascending colon polyp x1, biopsy- tubular [...] colonoscopy was done under MAC anesthesia at [facility]. The patient states I want to [...] Bonny Bains APRN.ADRIENNE documented in this encounter [facility] 09-08-2023 Telephone encounter Note Pt asking for the 5 mg tab to be sent in to the pharmacy. Pt was asking to go without the consult and do just the colonoscopy. I told him based on history of polyps he had to have the consult first. Anna Page MA September 08, 2023 2:15 PM [facility] 09-08-2023 Miscellaneous Notes Pt asking for the [...] you Gaby Pedersen documented in this encounter [facility] 09-08-2023 Telephone encounter Note ??There is a consult for surgery in the chart and looks like he has an appt already sed up on 09/28 [facility] 09-08-2023 Telephone encounter Note Patient called in and saw Dr. Warren and stated that Dr Warren was suppose to put in an order for a consult to see Dr Mohan. I did not see one in patients chart. Please advice as to what we should do. Thank you Gaby Pedersen [facility] 09-08-2023 Note HNO ID: [id number] Author: CHRISTO WARREN MD Service: ? Author [...] 06/2017 COLONOSCOPY SCREENING 07/14/2017 Dr. Mohan @ [facility]; Ascending colon polyp x1, biopsy- tubular [...] sodium restriction, DA (more content not included)... [facility] 09-08-2023 History of Present illness Narrative [...] 06/2017 COLONOSCOPY SCREENING 07/14/2017 Dr. Mohan @ [facility]; Ascending colon polyp x1, biopsy- tubular [...] Christo Warren MD documented in this encounter [facility] 09-01-2023 Telephone encounter Note Patient asking for a 90 day qty, and also asking for a higher dose as the 0.25 is not working well. Please call with what dosage will be called in. [phone] Patient has been identified by name and date of : Yes Patient phones for refill(s): Requested Prescriptions Pending Prescriptions Disp Refills pramipexole (MIRAPEX) 0.25 mg tablet 30 tablet 5 Sig: Take 1 tablet by mouth daily at bedtime. Date of last office visit in primary care: 02/24/2023 Date of next office visit in primary care: 09/08/2023 Please advise. Thank you. Soledad Butler. [facility] 09-01-2023 Miscellaneous Notes Patient asking for a 90 day qty, and also asking for a higher dose as the 0.25 is not working well. Please call with what dosage will be called in. [phone] Patient has been identified by name and [...] you. Soledad Butler. documented in this encounter [facility] 07-29-2023 Telephone encounter Note Patient notified. Verbalized understanding. [facility] 07-29-2023 Miscellaneous Notes Patient notified. Verbalized understanding. No labs needed. Patient calling to request an order for Labs Please advise. Patient is requesting a return call from our office. Date of next visit with PCP 09-08-23 documented in this encounter [facility] 07-29-2023 Telephone encounter Note No labs needed. [facility] 07-29-2023 Telephone encounter Note Patient calling to request an order for Labs Please advise. Patient is requesting a return call from our office. Date of next visit with PCP 09-08-23 [facility] 07-29-2023 Telephone encounter Note Patient has been identified by name and date of : Patient phones for refill(s): Requested Prescriptions Pending Prescriptions Disp Refills lisinopril 2.5 mg tablet 90 tablet 3 Sig: Take 1 tablet by mouth once daily. Date of last office visit in primary care: 02/24/2023 Date of next office visit in primary care: 09/08/2023 Please advise. Thank you. Jessica Sanchez. [facility] 07-29-2023 Miscellaneous Notes Patient has been identified [...] you. Jessica Sanchez. documented in this encounter [facility] 03-04-2023 Miscellaneous Notes Patient is aware of [...] to make sure. documented in this encounter [facility] 02-28-2023 History of Present illness Narrative Markus Stratton is identified through a medication adherence outreach initiative based on pharmacy claims data from [employer] (insurer) for DAWN medication(s). Patient is reviewed [...] date per call to patient/caregiver Xochitl Brown ([employer]otor Carrier Inspector) documented in this encounter [facility] 02-24-2023 History of Present illness Narrative Patient [...] Abs Lymph 1.00 - 4.00 k/uL 2.33 Lipscomb% % 6.7 Abs Lipscomb <0.87 k/uL 0.65 Eosin% % 1.8 Abs [...] 06/2017 COLONOSCOPY SCREENING 07/14/2017 Dr. Mohan @ [facility]; Ascending colon polyp x1, biopsy- tubular [...] Christo Warren MD documented in this encounter [facility] 02-04-2023 Miscellaneous Notes Pt is asking for [...] patient. Cristal Forbes documented in this encounter [facility] 01-24-2023 History of Present illness Narrative Can [...] 2023 11:28 AM documented in this encounter [facility] 01-24-2023 Miscellaneous Notes Addended by: CHRISTO WARREN on: 01/24/2023 04:49 PM Modules accepted: Orders documented in this encounter [facility] 01-21-2023 Miscellaneous Notes Called pt to schedule [...] recheck as well. documented in this encounter [facility] 01-14-2023 Miscellaneous Notes Patient notified. Verbalized understanding. Does have a virtual follow up on Jan 23. We have to start low. Most importantly I need his labs this week. Make sure has follow up Called pt back and he is asking to please have the prescription sent today if possible to [facility]. He says he is not sleeping and [...] too. Please advise documented in this encounter [facility] 01-08-2023 Miscellaneous Notes Patient scheduled for virtual tomorrow at 9:20. Dina Moran That is not something we are permitted to do without evaluation. I would suggest being seen. Can do virtual with me in am while I am at [facility] Spoke with patient regarding cancel appt due to michelet call off.. patient states he really doesn't need to be seen just having issues sleeping and just wanted to have provider order sleeping meds. Patient did not want wish to make appt. Please advise. Thank you Betty FORBES documented in this encounter [facility] 01-07-2023 Miscellaneous Notes See triage note. Markus Noemimaria teresa is calling Christo Warren MD today with concern regarding unable to sleep. Patient has not slept for 2 weeks. Patient has been identified by name and birthdate. Duration of symptoms: 2 weeks Person calling: self Call patient at: on cell [phone] (home) [phone] (work) [phone] (cell) Was an appointment scheduled: No Closing statement: Symptom Call: Thank you for calling [facility], your call is very important. A nurse will call in approximately 2-4 hours during business hours. If this is an emergency, please contact 911. Jessica Sanchez documented in this encounter [facility] 01-07-2023 Miscellaneous Notes Patient requesting sleeping pill, has not slept in 2 weeks- only for short periods. Has tried other things (see below). Scheduled 1 st available with pcp tomorrow. Patient declined sooner appt with [employer]. Protocol recommends call pcp w/in 24 hours. [...] OTHER SYMPTOMS: No other symptoms. Protocols used: [id number] documented in this encounter [facility] 09-13-2022 History of Present illness Narrative POPULATION [...] 2022 9:54 AM documented in this encounter [facility] 04-05-2022 Miscellaneous Notes Patient reviewed for [employer] [...] refill if appropriate. Thank you. Kacy Galeano ([employer]) April 05, 2022 10:42 AM documented in this encounter [facility] 04-02-2022 History of Present illness Narrative Markus Stratton is identified through a medication adherence outreach initiative based on pharmacy claims data from [employer] (insurer) for DAWN medication(s). Patient is reviewed [...] PCP to refill if appropriate. Kacy Galeano ([employer]) documented in this encounter [facility] 03-31-2022 History of Present illness Narrative Images [...] 06/2017 COLONOSCOPY SCREENING 07/14/2017 Dr. Mohan @ [facility]; Ascending colon polyp x1, biopsy- tubular [...] Carlos Abebe APRN.CNP documented in this encounter [facility] 12-17-2021 History of Present illness Narrative POPULATION [...] 2021 8:51 AM documented in this encounter [facility] 11-13-2021 Miscellaneous Notes Spoke to pt and [...] Seven Melendez LPN documented in this encounter [facility] 05-01-2020 History of Present illness Narrative Radiology [...] 2020 6:54 PM documented in this encounter [facility] 09-09-2017 History of Past i llness Narrative Problem Noted Date Resolved Date Neck pain 09/09/2017 10/30/2017 Stiffness of left wrist joint 11/28/2015 Pain in right wrist 09/13/2015 10/30/2017 Stress and adjustment reaction 04/07/2014 0 10/30/2017 documented as of this encounter (statuses as of 11/13/2021) [facility]2018 History of Past illness Narrative* Problem Noted Date Resolved Date Neck pain 09/09/2017 10/30/2017 Stiffness of left wrist joint 11/28/2015 Pain in right wrist 09/13/2015 10/30/2017 Stress and adjustment reaction 04/07/2014 0 10/30/2017 documented as of this encounter (statuses as of 12/17/2021) [facility]2018 History of Past illness Narrative* Problem Noted Date Resolved Date Neck pain 09/09/2017 10/30/2017 Stiffness of left wrist joint 11/28/2015 Pain in right wrist 09/13/2015 10/30/2017 Stress and adjustment reaction 04/07/2014 0 10/30/2017 documented as of this encounter (statuses as of 03/31/2022) [facility]2018 History of Past illness Narrative* Problem Noted Date Resolved Date Neck pain 09/09/2017 10/30/2017 Stiffness of left wrist joint 11/28/2015 Pain in right wrist 09/13/2015 10/30/2017 Stress and adjustment reaction 04/07/2014 0 10/30/2017 documented as of this encounter (statuses as of 04/05/2022) [facility]2018 History of Past illness Narrative* Problem Noted Date Resolved Date Neck pain 09/09/2017 10/30/2017 Stiffness of left wrist joint 11/28/2015 Pain in right wrist 09/13/2015 10/30/2017 Stress and adjustment reaction 04/07/2014 0 10/30/2017 documented as of this encounter (statuses as of 04/05/2022) [address]19-2018 History of Past illness Narrative* Problem Noted Date Resolved Date Neck pain 09/09/2017 10/30/2017 Stiffness of left wrist joint 11/28/2015 Pain in right wrist 09/13/2015 10/30/2017 Stress and adjustment reaction 04/07/2014 0 10/30/2017 documented as of this encounter (statuses as of 09/13/2022) [address]2018 History of Past illness Narrative* Problem Noted Date Diagnosed Date Resolved Date Neck pain 09/09/2017 10/30/2017 Stiffness of left wrist joint 11/28/2015 10/30/2017 Pain in right wrist 09/13/2015 10/31/19 18 Stress and adjustment reaction 04/07/2014 10/30/2017 documented as of this encounter (statuses as of 01/07/2023) [address]2018 History of Past illness Narrative* Problem Noted Date Diagnosed Date Resolved Date Neck pain 09/09/2017 10/30/2017 Stiffness of left wrist joint 11/28/2015 10/30/2017 Pain in right wrist 09/13/2015 10/31/19 18 Stress and adjustment reaction 04/07/2014 10/30/2017 documented as of this encounter (statuses as of 01/08/2023) [address]2018 History of Past illness Narrative* Problem Noted Date Diagnosed Date Resolved Date Neck pain 09/09/2017 10/30/2017 Stiffness of left wrist joint 11/28/2015 10/30/2017 Pain in right wrist 09/13/2015 10/31/19 18 Stress and adjustment reaction 04/07/2014 10/30/2017 documented as of this encounter (statuses as of 01/14/2023) [address]2018 History of Past illness Narrative* Problem Noted Date Diagnosed Date Resolved Date Neck pain 09/09/2017 10/30/2017 Stiffness of left wrist joint 11/28/2015 10/30/2017 Pain in right wrist 09/13/2015 10/31/19 18 Stress and adjustment reaction 04/07/2014 10/30/2017 documented as of this encounter (statuses as of 01/25/2023) [address]2018 History of Past illness Narrative* Problem Noted Date Diagnosed Date Resolved Date Neck pain 09/09/2017 10/30/2017 Stiffness of left wrist joint 11/28/2015 10/30/2017 Pain in right wrist 09/13/2015 10/31/19 18 Stress and adjustment reaction 04/07/2014 10/30/2017 documented as of this encounter (statuses as of 02/04/2023) [address]2018 History of Past illness Narrative* Problem Noted Date Diagnosed Date Resolved Date Neck pain 09/09/2017 10/30/2017 Stiffness of left wrist joint 11/28/2015 10/30/2017 Pain in right wrist 09/13/2015 10/31/19 18 Stress and adjustment reaction 04/07/2014 10/30/2017 documented as of this encounter (statuses as of 02/14/2023) [address]2018 History of Past illness Narrative* Problem Noted Date Diagnosed Date Resolved Date Neck pain 09/09/2017 10/30/2017 Stiffness of left wrist joint 11/28/2015 10/30/2017 Pain in right wrist 09/13/2015 10/31/19 18 Stress and adjustment reaction 04/07/2014 10/30/2017 documented as of this encounter (statuses as of 02/25/2023) [address]2018 History of Past illness Narrative* Problem Noted Date Diagnosed Date Resolved Date Neck pain 09/09/2017 10/30/2017 Stiffness of left wrist joint 11/28/2015 10/30/2017 Pain in right wrist 09/13/2015 10/31/19 18 Stress and adjustment reaction 04/07/2014 10/30/2017 documented as of this encounter (statuses as of 02/28/2023) [address] History of Past illness Narrative* Problem Noted Date Diagnosed Date Resolved Date Neck pain 09/09/2017 10/30/2017 Stiffness of left wrist joint 11/28/2015 10/30/2017 Pain in right wrist 09/13/2015 10/31/19 18 Stress and adjustment reaction 04/07/2014 10/30/2017 documented as of this encounter (statuses as of 03/05/2023) [facility] Diagnosis Essential hypertension Unspecified essential hypertension [facility] Diagnosis Tooth ache- Primary [facility]* Diagnosis Essential hypertension Unspecified essential hypertension [facility]* Diagnosis Screening for colon cancer- Primary Special screening for malignant neoplasms, colon documented in this encounter [facility] note* Diagnosis Hyperbilirubinemia- Primary Jaundice, unspecified, not of Abnormal blood cell count Elevated PSA Elevated prostate specific antigen (PSA) documented in this encounter [facility] note* Diagnosis RLS (restless legs syndrome)- Primary Restless legs syndrome (RLS) Hyperbilirubinemia Jaundice, unspecified, not of Abnormal blood cell count Elevated PSA Elevated prostate specific antigen (PSA) Primary hypertension Unspecified essential hypertension [facility] Diagnosis Hyperbilirubinemia- Primary Jaundice, unspecified, not of [facility] Diagnosis Essential hypertension Unspecified essential hypertension documented in this encounter [facility] note* Diagnosis Essential hypertension- Primary Unspecified essential hypertension Anxiety and depression Dysthymic disorder RLS (restless legs syndrome) Restless legs syndrome (RLS) Screening for prostate cancer Special screening for malignant neoplasm of prostate Elevated PSA Elevated prostate specific antigen (PSA) History of colonic polyps Personal history of colonic polyps Gait disorder Abnormality of gait Bradykinesia Abnormal involuntary movements [facility] Diagnosis Essential hypertension Unspecified essential hypertension documented in this encounter [facility] note* Diagnosis FH: colon cancer in first degree relative <60 years old- Primary History of colonic polyps Personal history of colonic polyps [facility] Diagnosis Essential hypertension- Primary Unspecified essential hypertension [facility] Diagnosis Acute otitis media, right- Primary Unspecified otitis media Acute cough [facility] Diagnosis Acute cough- Primary Essential hypertension Unspecified essential hypertension [facility] Diagnosis Essential hypertension- Primary Unspecified essential hypertension [facility] Diagnosis Parkinson's disease without dyskinesia or fluctuating manifestations (HCC)- Primary [facility] Diagnosis Pain of left calf Pain in limb [facility] Diagnosis Screening for malignant neoplasm of prostate- Primary Elevated PSA Elevated prostate specific antigen (PSA) Essential hypertension Unspecified essential hypertension documented in this encounter [facility] note* Diagnosis RLS (restless legs syndrome) Restless legs syndrome (RLS) documented in this encounter [facility] note* Diagnosis Essential hypertension- Primary Unspecified essential hypertension Anxiety and depression Dysthymic disorder Parkinson's disease, unspecified whether dyskinesia present, unspecified whether manifestations fluctuate (HCC) History of colonic polyps Personal history of colonic polyps documented in this encounter [facility] note* Diagnosis Parkinson's disease without dyskinesia or fluctuating manifestations (HCC)- Primary RLS (restless legs syndrome) Restless legs syndrome (RLS) documented in this encounter [facility] note* Diagnosis Bronchitis- Primary Bronchitis, not specified as acute or chronic documented in this encounter [facility] note* Diagnosis Parkinson's disease without dyskinesia or fluctuating manifestations (HCC)- Primary RLS (restless legs syndrome) Restless legs syndrome (RLS) documented in this encounter [facility] note* Diagnosis Posture abnormality- Primary Abnormal posture Parkinson's disease without dyskinesia or fluctuating manifestations (HCC) documented in this encounter [facility] Reason for Referral Specialty Diagnoses / Procedures Referred By Jesús henson Referred To Contact Urology Diagnoses Elevated PSA Procedures CONSULT TO UROLOGY OFFICE/OUTPATIENT [facility] 60-[place] [address] [place] [id number] Referral ID Status Reason Start Date Expiration Date Visits Requested Visits Authorized [id number] Authorized PCP Requested Referral 01/20/2024 1 1 Specialty Diagnoses / Procedures Referred By Jesús henson Referred To Contact Neurology Diagnoses Gait disorder Bradykinesia Procedures CONSULT TO NEUROLOGY OFFICE/OUTPATIENT [facility] 60 MINUTES Christo Warren MD [address] [place] [address] Referral ID Status Reason Start Date Expiration Date Visits Requested Visits Authorized [id number] Pending Review PCP Requested Referral 09/08/2023 09/07/2024 1 1 Specialty Diagnoses / Procedures Referred By Jesús henson Referred To Contact General Surgery / FAMILY MEDICINE Diagnoses History of colonic polyps Procedures CONSULT TO GENERAL SURGERY OFFICE/OUTPATIENT [facility] 60 [place] [address] [place] [id number] [address] [facility] [address] [place] [address] Referral ID Status Reason Start Date Expiration Date Visits Requested Visits Authorized [id number] Authorized PCP Requested Referral 03/24/2023 03/23/2024 1 1 Specialty Diagnoses / Procedures Referred By Contac t Referred To Contact [facility] Diagnoses Parkinson's disease without dyskinesia or fluctuating manifestations (HCC) Procedures CONSULT TO [facility] EVAL HIGH COMPLEX 60 MINS Nikki Javier MD [address] [facility] [place] [address] [facility] [address] [address] Referral ID Status Reason Start Date Expiration Date Visits Requested Visits Authorized [id number] Pending Review Auto-Generat ed Referral 11/17/2023 11/16/2024 1 1 Specialty Diagnoses / Procedures Referred By Contac t Referred To Contact [facility] Diagnoses Parkinson's disease without dyskinesia or fluctuating manifestations (HCC) Procedures CONSULT TO PHYSICAL THERAPY PHYSICAL THERAPY EVALUATION HIGH COMPLEX 45 MINS Nikki Javier MD [address] [place] [address] [address] Referral ID Status Reason Start Date Expiration Date Visits Requested Visits Authorized [id number] Pending Review Auto-Generat ed Referral 11/17/2023 11/16/2024 [...] or prosecute any alcohol or drug abuse patient.[facility] the event this information is protected by the Federal Confidentiality of Alcohol and Drug Abuse Patient Records regulations: The Federal rules restrict any use of the information to criminally investigate or prosecute any alcohol or drug abuse patient.[facility] the event this information is protected by the Federal Confidentiality of Alcohol and Drug Abuse Patient Records regulations: The Federal rules restrict any use of the information to criminally investigate or prosecute any alcohol or drug abuse patient.[facility] the event this information is protected by the Federal Confidentiality of Alcohol and Drug Abuse Patient Records regulations: The Federal rules restrict any use of the information to criminally investigate or prosecute any alcohol or drug abuse patient.[facility] the event this information is protected by the Federal Confidentiality of Alcohol and Drug Abuse Patient Records regulations: The Federal rules restrict any use of the information to criminally investigate or prosecute any alcohol or drug abuse patient.[facility] the event this information is protected by the Federal Confidentiality of Alcohol and Drug Abuse Patient Records regulations: The Federal rules restrict any use of the information to criminally investigate or prosecute any alcohol or drug abuse patient.[facility] the event this information is protected by the Federal Confidentiality of Alcohol and Drug Abuse Patient Records regulations: The Federal rules restrict any use of the information to criminally investigate or prosecute any alcohol or drug abuse patient.[facility] the event this information is protected by the Federal Confidentiality of Alcohol and Drug Abuse Patient Records regulations: The Federal rules restrict any use of the information to criminally investigate or prosecute any alcohol or drug abuse patient.[facility] the event this information is protected by the Federal Confidentiality of Alcohol and Drug Abuse Patient Records regulations: The Federal rules restrict any use of the information to criminally investigate or prosecute any alcohol or drug abuse patient.[facility] the event this information is protected by the Federal Confidentiality of Alcohol and Drug Abuse Patient Records regulations: The Federal rules restrict any use of the information to criminally investigate or prosecute any alcohol or drug abuse patient.[facility] the event this information is protected by the Federal Confidentiality of Alcohol and Drug Abuse Patient Records regulations: The Federal rules restrict any use of the information to criminally investigate or prosecute any alcohol or drug abuse patient.[facility] the event this information is protected by the Federal Confidentiality of Alcohol and Drug Abuse Patient Records regulations: The Federal rules restrict any use of the information to criminally investigate or prosecute any alcohol or drug abuse patient.[facility] the event this information is protected by the Federal Confidentiality of Alcohol and Drug Abuse Patient Records regulations: The Federal rules restrict any use of the information to criminally investigate or prosecute any alcohol or drug abuse patient.[facility] the event this information is protected by the Federal Confidentiality of Alcohol and Drug Abuse Patient Records regulations: The Federal rules restrict any use of the information to criminally investigate or prosecute any alcohol or drug abuse patient.[facility] the event this information is protected by the Federal Confidentiality of Alcohol and Drug Abuse Patient Records regulations: The Federal rules restrict any use of the information to criminally investigate or prosecute any alcohol or drug abuse patient.[facility] the event this information is protected by the Federal Confidentiality of Alcohol and Drug Abuse Patient Records regulations: The Federal rules restrict any use of the information to criminally investigate or prosecute any alcohol or drug abuse patient.[facility] the event this information is protected by the Federal Confidentiality of Alcohol and Drug Abuse Patient Records regulations: The Federal rules restrict any use of the information to criminally investigate or prosecute any alcohol or drug abuse patient.[facility] the event this information is protected by the Federal Confidentiality of Alcohol and Drug Abuse Patient Records regulations: The Federal rules restrict any use of the information to criminally investigate or prosecute any alcohol or drug abuse patient.[facility] the event this information is protected by the Federal Confidentiality of Alcohol and Drug Abuse Patient Records regulations: The Federal rules restrict any use of the information to criminally investigate or prosecute any alcohol or drug abuse patient.[facility] the event this information is protected by the Federal Confidentiality of Alcohol and Drug Abuse Patient Records regulations: The Federal rules restrict any use of the information to criminally investigate or prosecute any alcohol or drug abuse patient.[facility] the event this information is protected by the Federal Confidentiality of Alcohol and Drug Abuse Patient Records regulations: The Federal rules restrict any use of the information to criminally investigate or prosecute any alcohol or drug abuse patient.[facility] the event this information is protected by the Federal Confidentiality of Alcohol and Drug Abuse Patient Records regulations: The Federal rules restrict any use of the information to criminally investigate or prosecute any alcohol or drug abuse patient.[facility] WestIn the event this information is protected by the Federal Confidentiality of Alcohol and Drug Abuse Patient Records regulations: The Federal rules restrict any use of the information to criminally investigate or prosecute any alcohol or drug abuse patient.[facility] WestIn the event this information is protected by the Federal Confidentiality of Alcohol and Drug Abuse Patient Records regulations: The Federal rules restrict any use of the information to criminally investigate or prosecute any alcohol or drug abuse patient.[facility] WestIn the event this information is protected by the Federal Confidentiality of Alcohol and Drug Abuse Patient Records regulations: The Federal rules restrict any use of the information to criminally investigate or prosecute any alcohol or drug abuse patient.[facility] WestIn the event this information is protected by the Federal Confidentiality of Alcohol and Drug Abuse Patient Records regulations: The Federal rules restrict any use of the information to criminally investigate or prosecute any alcohol or drug abuse patient.[facility] WestIn the event this information is protected by the Federal Confidentiality of Alcohol and Drug Abuse Patient Records regulations: The Federal rules restrict any use of the information to criminally investigate or prosecute any alcohol or drug abuse patient.[facility] WestIn the event this information is protected by the Federal Confidentiality of Alcohol and Drug Abuse Patient Records regulations: The Federal rules restrict any use of the information to criminally investigate or prosecute any alcohol or drug abuse patient.[facility] WestIn the event this information is protected by the Federal Confidentiality of Alcohol and Drug Abuse Patient Records regulations: The Federal rules restrict any use of the information to criminally investigate or prosecute any alcohol or drug abuse patient.[facility] WestIn the event this information is protected by the Federal Confidentiality of Alcohol and Drug Abuse Patient Records regulations: The Federal rules restrict any use of the information to criminally investigate or prosecute any alcohol or drug abuse patient.[facility] WestIn the event this information is protected by the Federal Confidentiality of Alcohol and Drug Abuse Patient Records regulations: The Federal rules restrict any use of the information to criminally investigate or prosecute any alcohol or drug abuse patient.[facility] WestIn the event this information is protected by the Federal Confidentiality of Alcohol and Drug Abuse Patient Records regulations: The Federal rules restrict any use of the information to criminally investigate or prosecute any alcohol or drug abuse patient.[facility] WestIn the event this information is protected by the Federal Confidentiality of Alcohol and Drug Abuse Patient Records regulations: The Federal rules restrict any use of the information to criminally investigate or prosecute any alcohol or drug abuse patient.[facility] WestIn the event this information is protected by the Federal Confidentiality of Alcohol and Drug Abuse Patient Records regulations: The Federal rules restrict any use of the information to criminally investigate or prosecute any alcohol or drug abuse patient.[facility] WestIn the event this information is protected by the Federal Confidentiality of Alcohol and Drug Abuse Patient Records regulations: The Federal rules restrict any use of the information to criminally investigate or prosecute any alcohol or drug abuse patient.[facility] WestIn the event this information is protected by the Federal Confidentiality of Alcohol and Drug Abuse Patient Records regulations: The Federal rules restrict any use of the information to criminally investigate or prosecute any alcohol or drug abuse patient.[facility] WestIn the event this information is protected by the Federal Confidentiality of Alcohol and Drug Abuse Patient Records regulations: The Federal rules restrict any use of the information to criminally investigate or prosecute any alcohol or drug abuse patient.[facility] WestIn the event this information is protected by the Federal Confidentiality of Alcohol and Drug Abuse Patient Records regulations: The Federal rules restrict any use of the information to criminally investigate or prosecute any alcohol or drug abuse patient.[facility] WestIn the event this information is protected by [...] or prosecute any alcohol or drug abuse patient.[facility] WestIn the event this information is protected by the Federal Confidentiality of Alcohol and Drug Abuse Patient Records regulations: The Federal rules restrict any use of the information to criminally investigate or prosecute any alcohol or drug abuse patient.[facility] WestIn the event this information is protected by the Federal Confidentiality of Alcohol and Drug Abuse Patient Records regulations: The Federal rules restrict any use of the information to criminally investigate or prosecute any alcohol or drug abuse patient.[facility] WestIn the event this information is protected by the Federal Confidentiality of Alcohol and Drug Abuse Patient Records regulations: The Federal rules restrict any use of the information to criminally investigate or prosecute any alcohol or drug abuse patient.[facility] WestIn the event this information is protected by the Federal Confidentiality of Alcohol and Drug Abuse Patient Records regulations: The Federal rules restrict any use of the information to criminally investigate or prosecute any alcohol or drug abuse patient.[facility] Reason for Visit (unrecogniz ed section and [...] polyps Procedures CONSULT TO GENERAL SURGERY OFFICE/OUTPATIENT [facility] MDM 60 MINUTES Christo Warren MD [address] [place] [address] [facility] [address] [place] [address] Referral ID Status Reason Start Date Expiration Date V isits Requested Visits Authorized [id number] Closed PCP Requested Referral 03/24/2023 03/23/2024 1 [...] disorder Bradykinesia Procedures CONSULT TO NEUROLOGY OFFICE/OUTPATIENT [facility] MDM 60 MINUTES Christo Warren MD [address] [place] [address] [facility] [address] [place] [address] Referral ID Status Reason Start Date Expiration Date V isits Requested Visits Authorized [id number] Closed PCP Requested Referral 10/22/2023 03/23/2024 1 [...] Eval Specialty Diagnoses / Procedures Referred By eJsús henson Referred To Contact PHYSICAL THERAPY Diagnoses Parkinson's disease without dyskinesia or fluctuating manifestations (HCC) Procedures CONSULT TO PHYSICAL THERAPY PHYSICAL THERAPY EVALUATION HIGH COMPLEX 45 MINS Nikki Jaiver MD Phone: tel: fax: Mis Montgomery, PT [address] [place] [address] Phone: tel: Referral ID Status Reason Start Date Expiration Date Visits Requested Visits Authorized [id number] Authorized Auto-Generat ed Referral 08/05/2024 03/23/2025 99 99 Reason Onset Date Comments Population Health Navigation Outreach 09/08/[address] [facility] Care Teams (unrecognized sec tion and content) Forming Machine Adjuster Relationship Specialty Start Date End Date Christo Warren MD [address] [place], [place] [id number] PCP - General Family Practice 8/9/18 Forming Machine Adjuster Relationship Specialty Start Date End Date Christo Warren MD [address] [facility] [address] PCP - General Family Medicine 10/30/17 Forming Machine Adjuster Relationship Specialty Start Date End Date Christo Warren MD [address] [facility] [place] [address] PCP - General Family Medicine 10/30/17 Forming Machine Adjuster Relationship Specialty Start Date End Date Christo Warren MD [address] [facility] [place] [address] PCP - General Family Medicine 10/30/17 Forming Machine Adjuster Relationship Specialty Start Date End Date Christo Warren MD [address] [facility] [place] [address] PCP - General Family Medicine 10/30/17 Forming Machine Adjuster Relationship Specialty Start Date End Date Christo Warren MD [address] [facility] [place] [address] PCP - General Family Medicine 10/30/17 Forming Machine Adjuster Relationship Specialty Start Date End Date Christo Warren MD [address] [facility] [place] [address] PCP - General Family Medicine 10/30/17 Forming Machine Adjuster Relationship Specialty Start Date End Date Christo Warren MD [address] [facility] [place] [address] PCP - General Family Medicine 10/30/17 Forming Machine Adjuster Relationship Specialty Start Date End Date Christo Warren MD [address] [facility] [place] [address] PCP - General Family Medicine 10/30/17 Forming Machine Adjuster Relationship Specialty Start Date End Date Christo Warren MD [address] [facility] [place] [address] PCP - General Family Medicine 10/30/17 Forming Machine Adjuster Relationship Specialty Start Date End Date Christo Warren MD [address] [facility] [place] [address] PCP - General Family Medicine 10/30/17 Forming Machine Adjuster Relationship Specialty Start Date End Date Christo Warren MD [address] [facility] [place] [address] PCP - General Family Medicine 10/30/17 Forming Machine Adjuster Relationship Specialty Start Date End Date Christo Warren MD [address] [facility] [place] [address] PCP - General Family Medicine 10/30/17 Forming Machine Adjuster Relationship Specialty Start Date End Date Christo Warren MD [address] [facility] [place] [address] PCP - General Family Medicine 10/30/17 Forming Machine Adjuster Relationship Specialty Start Date End Date Christo Warren MD [address] [facility] [address] PCP - General Family Medicine 10/30/17 Forming Machine Adjuster Relationship Specialty Start Date End Date Christo Warren MD [address] [facility] [place] [address] PCP - General Family Medicine 10/30/17 Forming Machine Adjuster Relationship Specialty Start Date End Date Christo Warren MD [address] [facility] [address] PCP - General Family Medicine 10/30/17 Forming Machine Adjuster Relationship Specialty Start Date End Date Christo Warren MD [address] [facility], [place] [address] PCP - General Family Medicine 10/30/17 Forming Machine Adjuster Relationship Specialty Start Date End Date Christo Warren MD [address] [facility], [place] [address] PCP - General Family Medicine 10/30/17 Forming Machine Adjuster Relationship Specialty Start Date End Date Christo Warren MD [address] [facility] [address] PCP - General Family Medicine 10/30/17 Forming Machine Adjuster Relationship Specialty Start Date End Date Christo Warren MD [address] [facility] [place] [address] PCP - General Family Medicine 10/30/17 Hermelinda Goldman APRN.PHOTOENGRAVING FINISHER [address] [facility] [place] [address] Wire Straightening Machine Operator Family Medicine 03/01/24 Palak Jimenez APRN.PHOTOENGRAVING FINISHER [address] [facility] [place] [address] Wire Straightening Machine Operator Family Medicine 03/01/24 Forming Machine Adjuster Relationship Specialty Start Date End Date Christo Warren MD [address] [facility] [address] PCP - General Family Medicine 10/30/17 Hermelinda Goldman APRN.PHOTOENGRAVING FINISHER [address] [facility] [place] [address] Wire Straightening Machine Operator Family Medicine 03/01/24 Palak Jimenez APRN.PHOTOENGRAVING FINISHER [address] [facility] [place] [address] Wire Straightening Machine Operator Family Medicine 03/01/24 Forming Machine Adjuster Relationship Specialty Start Date End Date Christo Warren MD [address] [facility] [place] [address] PCP - General Family Medicine 10/30/17 Hermelinda Goldman, LIFE COACH.PHOTOENGRAVING FINISHER [address] [facility] [place] [address] Wire Straightening Machine Operator Family Medicine 03/01/24 Palak Jimenez APRN.PHOTOENGRAVING FINISHER [address] [facility] [place] [address] Wire Straightening [facility] 03/01/24 Forming Machine Adjuster Relationship Specialty Start Date End Date Christo Warren MD [address] [facility] [address] PCP - General Family Medicine 10/30/17 Hermelinda Goldman LIFE COACH.PHOTOENGRAVING FINISHER [address] [facility] [place] [address] Wire Straightening Machine Operator Family Medicine 03/01/24 Palak Jimenez LIFE COACH.PHOTOENGRAVING FINISHER [address] [facility] [place] [address] Wire Straightening Machine Operator Family Medicine 03/01/24 Forming Machine Adjuster Relationship Specialty Start Date End Date Christo Warren MD [address] [facility] [address] PCP - General Family Medicine 10/30/17 Hermelinda Goldman, LIFE COACH.PHOTOENGRAVING FINISHER [address] [facility] [place] [address] Wire Straightening Machine Operator Family [facility] 03/01/24 Palak Jimenez APRN.PHOTOENGRAVING FINISHER [address] [place] [address] Wire Straightening [facility] 03/01/24 Forming Machine Adjuster Relationship Specialty Start Date End Date Christo Warren MD [address] [place] [address] PCP - General Family Medicine 10/30/17 Hermelinda Goldman APRN.PHOTOENGRAVING FINISHER [address] [place] [address] [facility] 03/01/24 Palak Jimenez APRN.PHOTOENGRAVING FINISHER [address] [place] [address] [facility] 03/01/24 Forming Machine Adjuster Relationship Specialty Start Date End Date Christo Warren MD [address] [place] [address] PCP - General Family Medicine 10/30/17 Hermelinda Goldman APRN.PHOTOENGRAVING FINISHER [address] [place] [address] Wire Straightening Machine [facility] 03/01/24 Palak Jimenez LIFE COACH.PHOTOENGRAVING FINISHER [address] [place] [address] [facility] 03/01/24 Forming Machine Adjuster Relationship Specialty Start Date End Date Christo Warren MD [address] [facility] [place] [address] PCP - General Family Medicine 10/30/17 Hermelinda Goldman APRN.PHOTOENGRAVING FINISHER [address] [place], [place] [address] [facility] 03/01/24 Palak Jimenez APRN.PHOTOENGRAVING FINISHER [address] [place], [place] [address] [facility] 03/01/24 (unrecognized sect ion and content) No Status Records FoundNo Status Records FoundNo Status Records FoundNo Status Records Found INFORMATION SOURCE (unrecogn ized section and content) DATE CREATED AUTHOR 03/16/2024 [facility] DATE CREATED AUTHOR AUTHOR'S ORGANIZ ATION 05/03/2024 [facility] DATE CREATED AUTHOR AUTHOR'S ORGANIZ ATION 08/21/2024 [facility] DATE CREATED AUTHOR AUTHOR'S ORGANIZ ATION 09/08/2024 [facility] FOR RECORDS PERTAINING TO PATIENTS WHO ARE [...] BE BASED ON THE PRIMARY CLINICAL RECORDS. [employer] provides no warranty or guarantee of the accuracy or completeness of information in this document.
--- OUTSIDE RECORDS SUMMARY | 2024-09-10 01:47 | XMS RPT_ITS | CCD ---
Author Organization [facility] Care Team Providers Care Heat Sealing Machine Operator Name Role Phone Christo Warren MD Primary Care Provider Christo Warren MD Primary Care Provider Derrickagen ASSEMBLER CONVERTIBLE TOP.Hermelinda DELEON Unavailable Suppan ASSEMBLER CONVERTIBLE TOP.Marito DELEONPalak A Unavailable [phone] Christo Warren Primary Care Unavailable Mohan Adhikari Attending Unavailable Mohan Adhikari Consulting Unavailable Christo Warren Referring Unavailable Christo Warren Attending Unavailable Christo Warren Primary Care Unavailable Mohan Adhikari Attending Unavailable Christo Warren Referring Unavailable Christo Warren Primary Care Unavailable Jessica Abebe Attending Unavailable Care Physician, No Primary Primary Care Unava ilable Suppan ASSEMBLER CONVERTIBLE TOP.ADRIENNE Palak A Unavailable [phone] Suppan ASSEMBLER CONVERTIBLE TOP.ADRIENNE Palak A Unavailable [phone] SELF Referring Unavailable CHRISTO WARREN Primary Care Unavailable MERON COOPER Attending Unavailable NIKKI JAVIER Attending Unavailable NIKKI JAVIER Referring Unavailable CHRISTO WARREN Primary Care Unavailable CHRISTO WARREN Attending Unavailable CHRISTO WARREN Primary Care Unavailable CHRISTO WARREN Referring Unavailable CHRISTO WARREN Primary Care Unavailable RACHEL MARTINS Attending Unavailable CHRISTO WARREN Primary Care Unavailable RACHEL MATRINS Attending Unavailable CHRISTO WARREN Primary Care Unavailable [...] Comment on above: Take 1 capsule by [facility] every 6 hours as needed. hydrOXYzine hydrochloride 25 mg oral tablet (15 sources) Antihistamine Start: 08-17-2022 End: 09-08-2023 hydrOXYzine HCl (ATARAX) 25 mg tablet Indications: Lack of adequate sleep Take 1 tablet by mouth daily at bedtime. May increase to 2 tablets at bedtime if one is not effective. 90 tablet 0 08/17/2022 09/08/2023 Discontinued Comment on above: Take 1 tablet by [facility] daily at bedtime. May increase [...] Comment on above: Take 2 tablets by [facility] once daily. pramipexole dihydrochloride 0.5 mg oral [...] by gold th daily at bedtime. Saw [place] 160 mg capsule (1 source) Start: 04-07-2014 End: 03-12-2021 take 1 capsule by mouth twice daily Saw [place] 160 mg capsule Take 160 mg by [...] Test Name Value Interpretation Reference Range Facility [id number] 09-06-2024 [id number] HNO ID: [id number] Author: MIS MONTGOMERY PT Service: ? Author Type: Physical Therapist Type: [id number] Filed: 09/06/2024 19:10 Note Text: [facility] Sports Therapy Physical Therapy Plan of Care Certification Patient Name: Markus Stratton : 1955 [facility] #: [id number] Date: 09/06/2024 To: Nikki Javier MD From [...] fluctuating manifestations (HCC) PLAN OF CARE: Assessment: Marksu Stratton presents with diagnosis of Parkinson's that [...] Planned: 6 Planned Treatment Interventions: Therapeutic exercise (05164), Neuromuscular re-education (66261), Therapeutic activities (51412), Self-skilled nursing management (88615), Gait Training (66595), Patient/Family/Caregiver Education, Body Mechanics Training PLAN FOR [...] reviewed the treatment plan for Markus Chayito, [facility]# [id number] for the period of 09/06/24 -- 11/05/24, established on 09/06/2024. Signature certifies the need for therapy services. Normal [facility] CNTHERAPYon 09-06-2024 CNTHERAPY OT/PT/Speech Visit ( LDPT) MARKUS STRATTON ([id number]) 1955 M T Date Time Provider Department 09/06/24 4:30 PM MIS MONTGOMERY LDPT Date Time Provider Department Center 09/06/2024 4:30 PM [id number], CARLA LDPT [facility] Reason for Visit: PT Eval [747] [...] Take 1 tablet by mouth once daily. [employer]: Addendum Therapy (PT/OT/Speech/Resp) ID: [id number] 09/06/2024 7:18 PM Author: MIS MONTGOMERY Signed by MIS MONTGOMERY PT on 09/06/2024 at 7:18 PM * * * This document replaces document [id number] * * * Document text: Program_ID:[id number] Access Code: [email or web address] URL: [email or web address] Date: 09-06-2024 Prepared By: Mis Montgomery Program [...] - 2-3 sets - 10 reps Normal [facility] THERAPY NTon 09-06-2024 THERAPY NT HNO ID: [id number] Author: MIS MONTGOMERY PT Service: Physical Therapy Author Type: Physical Therapist Type: Therapy (PT/OT/Speech/Resp) Filed: 09/06/2024 19:18 Note Text: Program_ID:[id number] Access Code: [email or web address] URL: [email or web address] Date: 09-06-2024 Prepared By: Mis Montgomery Program [...] - 2-3 sets - 10 reps Normal [facility] CNPNon 08-18-2024 CNPN Telephone (NEADMN) MARKUS STRATTON ([id number]) 1955 M [facility] Date Time Provider Department 08/18/24 NIKKI JAVIER [...] the day. Last Office Visit: 08/05/2024 Last [facility] visit: Visit date not found Next scheduled appointment: 02/21/2025 Best number to reach caller: [phone] Best time to reach caller: any Is [...] Encounter Status:Closed by VAL SWAN on 08/18/24 [facility] CNOVon 08-05-2024 CNOV Office Visit (NEUSTF ) MARKUS STRATTON ([id number]) 1955 M [facility] Date Time Provider Department 08/05/24 12:00 PM [...] timing. Gave info on PD research at [facility]. HPI Current Issues - Has been [...] Discussed with Patient: YES Nikki Javier MD [facility] Neurology Nikki Javier MD 08/05/2024 12:22 PM [...] around 6 (more content not included)... Normal [facility] 05-10-2024 [place] Telephone (KYWS) MARKUS STRATTON ([id number]) 1955 M [facility] Date Time Provider Department 05/10/24 CHRISTO WARREN [facility] During your visit today, we recorded the following information about you: Ignacia Bryant, GEOVANNA 05/10/2024 10:38 AM Signed Patient calling to request different cough medication. Patient was seen at [facility] [place] on 05/01/24 for cough and azithromycin and [...] headache dizziness, wheezing or SOB. Uses [facility]. Please call patient with PCP response. [phone] GEOVANNA Johnson William J, MD 05/10/2024 11:36 [...] Date Reviewed: 05/01/2024 Reviewed by: Meron Cooper APRN.SHIRT IRONER SUPERVISOR - Fully Assessed Reason for Visit: Patient Request [1016] Prescriptions as of 05/10/2024 - benzonatate (TESSALON [...] Encounter Status:Closed by CLAU FAM on 05/10/24 [facility] CNOVon 05-01-2024 CNOV Office Visit (UCMMAS ) MARKUS STRATTON ([id number]) 1955 M [facility] Date Time Provider Department 05/01/24 2:40 PM MERON COOPER During your visit today, we recorded the following information about you: Temperature Pulse Respiration Blood pressure 97.9 degrees 69/minute 20/minute 142/92 Meron Cooper APRN.SHIRT IRONER SUPERVISOR 05/01/2024 3:07 PM Signed Body aches/Pain/Fever Acetaminophen/Tylenol [...] go to ER for evaluation. Meron Cooper APRN.SHIRT IRONER SUPERVISOR This note was partially (more content not included)... [facility] CNOVon 04-19-2024 CNOV Office Visit ([facility] ) CHAYITOMARKUS ([id number]) 1955 M [facility] Date Time Provider Department 04/19/24 11:30 AM NIKKI JAVIER [facility] During your visit today, we [...] timing. Gave info on PD research at [facility]. HPI Current Issues - No clear benefit to levodopa - No side effects - Takes first dose around 3578-8743, second dose around 9916-0968 Generally does not take the mid-day dose [...] identified. 04/19/2024 by MD Nikki Harrell MD [facility] Neurology Nikki Javier MD 04/19/2024 11:41 AM [...] At the (more content not included)... Normal [facility] CNOVon 04-12-2024 CNOV Office Visit (FAMPWS ) MARKUS STRATTON ([id number]) 1955 [facility] Date Time Provider Department 04/12/24 8:40 AM [...] Abs Lymph 1.00 - 4.00 k/uL 2.41 Bee% % 6.4 Abs Bee <0.87 k/uL 0.68 Eosin% % 1.2 Abs [...] 06/2017 COLONOSCOPY SCREENING 07/14/2017 Dr. Mohan @ [facility]; Ascending colon polyp x1, biopsy- tubular [...] hypertension - (more content not included)... Normal [facility] CBC W Auto Differential pane l (Bld)on 03-29-2024 Basophils (Bld) [#/Vol] 0.09 10*3/uL Normal <0.11 [facility] Comment on above: Order Comment: Specimen Type: BLOOD SPEC IMEN Ordering Facility: [facility] Address: [address] [place] [address] Performed By: #### 5 7021-8 #### [facility] CLIA [id number] [address] [place] [address] [place], [place] [address] [place] Basophils/100 WBC (Bld) 0.8 % Normal [facility] Comment on above: Order Comment: Specimen Type: BLOOD SPEC IMEN Ordering Facility: [facility] Address: [address] [place] [address] Performed By: #### 5 7021-8 #### [facility] CLIA [id number] [address] [place] [address] [place] Differential cell count method Nom (Bld) Auto Normal [facility] Comment on above: Order Comment: Specimen Type: BLOOD SPEC IMEN Ordering Facility: [facility] Address: [address] [place] [address] Performed By: #### 5 7021-8 #### [facility] CLIA [id number] [address] [place] [address] [place] Eosinophils (Bld) [#/Vol] 0.13 10*3/uL Normal <0.46 [facility] Comment on above: Order Comment: Specimen Type: BLOOD SPEC IMEN Ordering Facility: [facility] Address: [address] [place] [address] Performed By: #### 5 7021-8 #### [facility] CLIA [id number] [address] [place] [address] [place] Eosinophils/100 WBC (Bld) 1.2 % Normal [facility] Comment on above: Order Comment: Specimen Type: BLOOD SPEC IMEN Ordering Facility: [facility] Address: [address] [place] [address] Performed By: #### 5 7021-8 #### [facility] CLIA [id number] [address] [place] [address] [place] Erythrocyte distribution width (RBC) [Ratio] 13.4 % Normal 11.5-15.0 [facility] Comment on above: Order Comment: Specimen Type: BLOOD SPEC IMEN Ordering Facility: [facility] Address: [address] [place] [address] Performed By: #### 5 7021-8 #### [facility] CLIA [id number] [address] [place] [address] [place] Hematocrit (Bld) [Volume fraction] 47.2 % Normal 39.0-51.0 [facility] Comment on above: Order Comment: Specimen Type: BLOOD SPEC IMEN Ordering Facility: [facility] Address: [address] [place] [address] Performed By: #### 5 7021-8 #### [facility] CLIA [id number] [address] [place] [address] [place] Hemoglobin (Bld) [Mass/Vol] 15.1 g/dL Normal 13.0-17.0 [facility] Comment on above: Order Comment: Specimen Type: BLOOD SPEC IMEN Ordering Facility: [facility] Address: [address] [place] [address] Performed By: #### 5 7021-8 #### [facility] CLIA [id number] [address] [place] [address] [place] Immature granulocytes (Bld) [#/Vol] 0.06 10*3/uL Normal <0.10 [facility] Comment on above: Order Comment: Specimen Type: BLOOD SPEC IMEN Ordering Facility: [facility] Address: [address] [place] [address] Performed By: #### 5 7021-8 #### [facility] CLIA [id number] [address] [place] [address] [place] Immature granulocytes/100 WBC (Bld) 0.6 % Normal [facility] Comment on above: Order Comment: Specimen Type: BLOOD SPEC IMEN Ordering Facility: [facility] Address: [address] [place] [address] Performed By: #### 5 7021-8 #### [facility] CLIA [id number] [address] [place] [address] [place] Lymphocytes (Bld) [#/Vol] 2.41 10*3/uL Normal 1.00-4.00 [facility] Comment on above: Order Comment: Specimen Type: BLOOD SPEC IMEN Ordering Facility: [facility] Address: [address] [place] [address] Performed By: #### 5 7021-8 #### [facility] CLIA [id number] [address] [place] [address] [place] Lymphocytes/100 WBC (Bld) 22.7 % Normal [facility] Comment on above: Order Comment: Specimen Type: BLOOD SPEC IMEN Ordering Facility: [facility] Address: [address] [place] [address] Performed By: #### 5 7021-8 #### [facility] CLIA [id number] [address] [place] [address] [place] MCH (RBC) [Entitic mass] 28.3 pg Normal 26.0-34.0 [facility] Comment on above: Order Comment: Specimen Type: BLOOD SPEC IMEN Ordering Facility: [facility] Address: [address] [place] [address] Performed By: #### 5 7021-8 #### [facility] CLIA [id number] [address] [place] [address] [place] MCHC (RBC) [Mass/Vol] 32.0 g/dL Normal 30.5-36.0 [facility] Comment on above: Order Comment: Specimen Type: BLOOD SPEC IMEN Ordering Facility: [facility] Address: [address] [place] [address] Performed By: #### 5 7021-8 #### [facility] CLIA [id number] [address] [place] [address] [place] MCV (RBC) [Entitic vol] 88.4 fL Normal 80.0-100.0 [facility] Comment on above: Order Comment: Specimen Type: BLOOD SPEC IMEN Ordering Facility: [facility] Address: [address] [place] [address] Performed By: #### 5 7021-8 #### [facility] CLIA [id number] [address] [place] [address] [place] Monocytes (Bld) [#/Vol] 0.68 10*3/uL Normal <0.87 [facility] Comment on above: Order Comment: Specimen Type: BLOOD SPEC IMEN Ordering Facility: [facility] Address: [address] [place] [address] Performed By: #### 5 7021-8 #### [facility] CLIA [id number] [address] [place] [address] [place] Monocytes/100 WBC (Bld) 6.4 % Normal [facility] Comment on above: Order Comment: Specimen Type: BLOOD SPEC IMEN Ordering Facility: [facility] Address: [address] [place] [address] Performed By: #### 5 7021-8 #### [facility] CLIA [id number] [address] [place] [address] [place] Neutrophils (Bld) [#/Vol] 7.24 10*3/uL Normal 1.45-7.50 [facility] Comment on above: Order Comment: Specimen Type: BLOOD SPEC IMEN Ordering Facility: [facility] Address: [address] [place] [address] Performed By: #### 5 7021-8 #### [facility] CLIA [id number] [address] [place] [address] [place] Neutrophils/100 WBC (Bld) 68.3 % Normal [facility] Comment on above: Order Comment: Specimen Type: BLOOD SPEC IMEN Ordering Facility: [facility] Address: [address] [place] [address] Performed By: #### 5 7021-8 #### [facility] CLIA [id number] [address] [id number], [place] [address] [place] Nucleated RBC (Bld) [#/Vol] 10*3/uL Normal <0.01 [facility] Comment on above: Order Comment: Specimen Type: BLOOD SPEC IMEN Ordering Facility: [facility] Address: [address] [place] [address] Performed By: #### 5 7021-8 #### [facility] CLIA [id number] [address] [place] [address] [place] Nucleated RBC/100 WBC (Bld) [Ratio] 0.0 /100 WBC Normal [facility] Comment on above: Order Comment: Specimen Type: BLOOD SPEC IMEN Ordering Facility: [facility] Address: [address] [place] [address] Performed By: #### 5 7021-8 #### [facility] CLIA [id number] [address] [place] [address] [place] Platelet mean volume (Bld) [Entitic vol] 10.6 fL Normal 9.0-12.7 [facility] Comment on above: Order Comment: Specimen Type: BLOOD SPEC IMEN Ordering Facility: [facility] Address: [address] [place] [address] Performed By: #### 5 7021-8 #### [facility] CLIA [id number] [address] [place] [address] [place] Platelets (Bld) [#/Vol] 261 10*3/uL Normal 150-400 [facility] Comment on above: Order Comment: Specimen Type: BLOOD SPEC IMEN Ordering Facility: [facility] Address: [address] [place] [address] Performed By: #### 5 7021-8 #### [facility] CLIA [id number] [address] [place] [address] [place] RBC (Bld) [#/Vol] 5.34 10*6/uL Normal 4.20-6.00 [facility] Comment on above: Order Comment: Specimen Type: BLOOD SPEC IMEN Ordering Facility: [facility] Address: [address] [place] [address] Performed By: #### 5 7021-8 #### [facility] CLIA [id number] [address] [place] [address] [place] WBC (Bld) [#/Vol] 10.61 10*3/uL Normal 3.70-11.00 [facility] Comment on above: Order Comment: Specimen Type: BLOOD SPEC IMEN Ordering Facility: [facility] Address: [address] [place] [address] Performed By: #### 5 7021-8 #### [facility] CLIA [id number] [address] [place] [address] [place] Free PSA [Mass/Vol]on 2024 Free PSA/Total PSA [Mass fraction] 12 % Normal [facility] Comment on above: Order Comment: Specimen Type: BLOOD SPEC IMENOrdering Facility: [facility] Address: [address] [place] [address] Result Comment: Tota l and free PSA [...] 12.2% 15.8% Performed By: #### 1 0886-0 ####[facility] [id number] [place] [address] [place] Prostate specific Ag [Mass/Vol] 2.51 ng/mL Normal <2.60 [facility] Comment on above: Order Comment: Specimen Type: BLOOD SPEC IMENOrdering Facility: [facility] Address: [address] [facility] [facility] [place] [address] Result Comment: Tota l PSA test methodology used is the Electrochemiluminescence Immunoassay by [employer]. Total PSA values by differing methodologies cannot be interchanged. Performed By: #### 1 0886-0 ####[facility] [id number] [facility] [place] [id number] [place] Colonoscopy Reporton 024 Colonoscopy Report [facility] Medical Records Department [address] [place] [address] Colonoscopy Report MR#: [id number] Acct: [id number] Name: MARKUS STRATTON Rep #: [id number] : 1955 68 From: Mohan Adhikari MD PCP: Dr. Christo Warren MD Status:[facility] Patient Name: Markus Stratton Procedure Date: 02/13/2024 8:28 AM Date of : 1955 Age: 68 Procedure: Colonoscopy Indications: High risk colon cancer surveillance: Personal history of adenoma less than 10 mm in size, Family history of colon cancer in a first-degree relative before age 60 years Providers: Mohan Adhikari MD Referring MD: Chirsto Warren Medicines: See the Anesthesia note for [...] 1 week. Procedure Code(s): --- Professional --- 63379, Colonoscopy, flexible; with removal of tumor(s), polyp(s), or other lesion(s) by snare technique 07177, 59, Colonoscopy, flexible; with biopsy, single or [...] or abscess without bleeding CPT copyright 2021 [employer]. All rights reserved. The codes documented in this report are preliminary and upon physician coder review may be revised to meet current compliance requirements. Mohan Adhikari MD 02/13/2024 9:31:56 AM This report has been signed electronically. Number of Addenda: 0 Note Initiated On: 02/13/2024 8:28 AM 02/13/24931 Date Mohan Adhikari MD Cosigner Signature: Date (more content not included)... [facility] MR/POSTOP.[facility] 02-13-2024 MR/POSTOP.[facility] Medical Records Department [address] [place] [address] Anesthesia Postop Eval I 02/13/2434 MR#: [id number] Acct: [id number] Name: MARKUS STRATTON Rep #: [id number] : 1955 68 From: [place] No PCP: Dr. Christo Warren MD Status:REG SDC Y Race: C Location: [place] [address] Anesthesia: Postop Eval I Current Vital Signs [...] No Cosigner Signature: Date CC: Signed Normal [facility] MR/JRACJUEA1na 02-13-2024 MR/POSTOPAN2 [facility] Medical Records Department [address] [place] [address] Anesthesia Postop Eval II 02/13/24 1308 MR#: [id number] Acct: [id number] Name: MARKUS STRATTON Rep #: [id number] : 1955 68 From: Facundo Hough MD PCP: Dr. Christo Warren MD Status:[facility] Y Race: C Location: [place] Anesthesia Postop [...] MD Cosigner Signature: Date CC: Signed Normal [facility] Surgery Specimen Level Michael 02-13-2024 Surgery Specimen Level IV -------- Patient Age/Sex Location Account Attending Physician -------- MARKUS STRATTON 68/M EN [id number] Dr. Mohan Adhikari MD -------- Specimen: [id number] Received: 02/13/24 Status: MICHELLE Godwin Num: [id number] Spec Type: EGD BIOPSY Subm Dr: Dr. [...] submitted in one cassette. SJ. 02/13/2024 TC:5 [facility]:[id number] -------- Patient Age/Sex Location Account Attending Physician -------- MARKUS STRATTON 68/M EN [id number] Dr. Mohan Adhikari MD -------- Signed (signature on file) Dr. Fran Aguila DO 02/17/24 1031 -------- Normal [facility] Comment on above: Performed By: #### PSUIV #### [facility] [place], [address] Cesar 01-15-2024 CNPN Telephone (FAMPWS) MARKUS STRATTON ([id number]) 1955 M [facility] Date Time Provider Department 01/15/24 CHRISTO WARRENPWS During your visit today, we recorded the following information about you: Heydi Rodriguez 01/15/2024 10:32 AM Signed Carlitos is calling Christo Warren MD today requesting order for routine blood work and PSA Please advise and return his call [phone] Christo Warren MD 01/15/2024 11:29 AM Signed done Anna Page MA 01/15/2024 11:47 AM Signed Pt notified that lab orders have been faxed to [facility] Anna Page MA January 15, 2024 [...] BLOOD COUNT AND DIFFERENTIAL [SQCBCDIF] Order #: [id number] FUTURE PROSTATE SPECIFIC ANTIGEN, FREE [SQPSATF] Order #: [id number] FUTURE Prescriptions as of 04/12/2024 - pramipexole [...] Encounter Status:Closed by ANNA PAGE on 01/15/24 [facility] CNOVon 12-01-2023 CNOV Office Visit (INTMWS ) MARKUS STRATTON ([id number]) 1955 M T Date Time Provider Department [...] Encounter Status:Closed by IAM HUMPHRIES on 12/01/23 [facility] Cesar 12-01-2023 GEOVANNI Telephone (INTMWS) MARKUS STRATTON ([id number]) 1955 M T Date Time Provider Department [...] Encounter Status:Closed by KOBI DEJESUS on 12/01/23 [facility] CNOVon 11-20-2023 CNOV Office Visit (INTMWS ) MARKUS STRATTON ([id number]) 1955 [facility] Date Time Provider Department 11/20/23 12:00 PM RACHEL MARTINS INTMWS During your visit today, we recorded the following information about you: Temperature Pulse Respiration Blood pressure 98.4 degrees 64/minute 16/minute 156/90 Weight 91.7 kg Rachel Martins, ASSEMBLER CONVERTIBLE TOP.SHIRT IRONER SUPERVISOR 11/20/2023 1:26 PM Signed CC: Patient presents with: runny nose, cough: Requesting another antibiotic HPI: Markus Stratton is a 68 year old male who presents to the office with above complaint He was seen in [facility] on 11/10 for three day [...] 07/14/2017: COLONOSCOPY SCREENING Comment: Dr. Mohan @ [facility]; Ascending colon polyp x1, biopsy- tubular [...] tenderness or frontal sinus tenderness. Mouth/Throat: Lips: Frederica. Mouth: Mucous membranes are moist. Pharynx: Oropharynx [...] MG-GUAIFENESIN 100 (more content not included)... Normal [facility] 11-20-2023 [place] Telephone (KYWS) MARKUS STRATTON ([id number]) 1955 M [facility] Date Time Provider Department 11/20/23 [facility] During your visit today, we recorded [...] prescriptions as requested and contact him at [phone] once completed. GEOVANNA Dye William J, MD [...] Fully Assessed Reason for Visit: Patient Question [6038] Prescriptions as of 11/20/2023 - carbidopa-levodopa (SINEMET) [...] Encounter Status:Closed by DINA MORAN on 11/20/23 [facility] CNOVon 11-17-2023 CNOV Office Visit ([facility] ) MARKUS STRATTON ([id number]) 1955 M [facility] Date Time Provider Department 11/17/23 2:00 PM NIKKI JAVIER [facility] During your visit today, we [...] films/image/tracing revie (more content not included)... Normal [facility] CNOVon 11-11-2023 CNOV Office Visit (WSTR ) CALABRETTA,MARKUS ([id number]) 1955 M [facility] Date Time Provider Department 11/11/23 5:45 PM [facility]EL RO[facility] During your visit today, we recorded the following information about you: Temperature Pulse Respiration Blood pressure 98.4 degrees 67/minute 16/minute 136/84 Weight 93.8 kg Israel Roque PA 11/11/2023 5:49 PM Signed This note was created using Bitpagosriter. Subjective Markus Stratton is a 68 year [...] 07/14/2017: COLONOSCOPY SCREENING Comment: Dr. Mohan @ [facility]; Ascending colon polyp x1, biopsy- tubular [...] COVID swab (more content not included)... Normal [facility] CNOVon 10-06-2023 CNOV Office Visit (KYWS ) MARKUS STRATTON ([id number]) 1955 [facility] Date Time Provider Department 10/06/23 11:20 AM [...] 06/2017 COLONOSCOPY SCREENING 07/14/2017 Dr. Mohan @ [facility]; Ascending colon polyp x1, biopsy- tubular [...] 325 mg (more content not included)... Normal [facility] Cesar 10-01-2023 CNPN Telephone ([employer]) MARKUS STRATTON ([id number]) 1955 [facility] Date Time Provider Department 10/01/23 BONNY BAINS During your visit today, we recorded the following information about you: [place] 10/01/2023 8:45 AM Signed Last colonoscopy was done under MAC anesthesia at [facility]. The patient states I want to make sure I am OUT. He doesn't want to drive to [place]. We discussed the IV sedation here and [...] entered for correct anesthesia type [place] Assembly Leader [place] 10/27/2023 8:40 AM Signed ----- Message ----- From: Bonny Bains APRN.SHIRT IRONER SUPERVISOR Sent: 09/29/2023 4:22 PM EDT To: [place]; [facility] Surg Schedule Pool Carlitos is going to call in to schedule (if he decides to move forward with colonoscopy). I didn't place order because I am unsure if he will choose MAC or IV sedation. He will need to hold his 325mg aspirin prior. Bonny Schwartz APRN.SHIRT IRONER SUPERVISOR Allergies As of Date: 10/01/2023 (No Known Allergies) Date Reviewed: 09/29/2023 Reviewed by: Bonny Bains APRN.SHIRT IRONER SUPERVISOR - Fully Assessed Reason for Visit: Appointment [...] Encounter Status:Closed by SEVEN ALEGRIA on 01/27/24 [facility] CNOVjudy 09-29-2023 CNOV Office Visit (GENSWS ) MARKUS STRATTON ([id number]) 1955 M [facility] Date Time Provider Department 09/29/23 4:00 PM BONNY BAINS GENSWS During your visit today, we recorded the following information about you: Temperature Pulse Blood pressure Weight 97.6 degrees 74/minute 138/72 90.7 kg Height 1.626 m Bonny Bains APRN.CNP 09/29/2023 4:22 PM Signed HISTORY AND PHYSICAL Markus Stratton : 1955 REFERRING PHYSICIAN: Chrisot Warren [address] [facility] [id number] CHIEF COMPLAINT: Patient presents with: Consult: Colonoscopy [...] Last colonoscopy was with Dr. Mohan at [facility] in June 2017 Impression: 1. Cecum: [...] 06/2017 COLONOSCOPY SCREENING 07/14/2017 Dr. Mohan @ [facility]; Ascending colon polyp x1, biopsy- tubular [...] entered by the nurse and reviewed by ga Nursing Notes: Allyson Pollard RN 09/29/2023 3:56 [...] patient shelley (more content not included)... Normal [facility] CNOVon 09-08-2023 CNOV Office Visit (FAMPWS ) MARKUS STRATTON ([id number]) 1955 [facility] Date Time Provider Department 09/08/23 10:00 AM [facility] During your visit today, we [...] 06/2017 COLONOSCOPY SCREENING 07/14/2017 Dr. Mohan @ [facility]; Ascending colon polyp x1, biopsy- tubular [...] definite cog (more content not included)... [facility]AT[facility] ([id number]) 1955 M [facility] Date Time Provider Department 09/08/23 CHRISTO WARREN [facility] During your visit today, we recorded the [...] Fully Assessed Reason for Visit: Patient Question [8743] Visit Diagnosis:Essential hypertension [I10] Order(s):lisinopril (ZESTRIL) 5 [...] Status:Closed by CHRISTO WARREN on 09/08/23 Normal [facility] XR Lumbar spine 3 Viewson IMPRESSION: DEGENERATIVE CHANGES AND ALIGNMENT ABNORMALITIES DESCRIBED Pharmacy Technician Instructor: [place] Transcribe Date/Time: May 02 2020 6:18A Dictated by : SAMMI MANRIQUEZ MD This examination was interpreted and the report reviewed and electronically signed by: SAMMI MANRIQUEZ MD on May 02 2020 6:19AM [facility] DIVISION OF RADIOLOGY * * *Final [...] IMPRESSION: DEGENERATIVE CHANGES AND ALIGNMENT ABNORMALITIES DESCRIBED Pharmacy Technician Instructor: [facility] Transcribe Date/Time: May 02 2020 6:18A Dictated by : SAMMI MANRIQUEZ MD This examination was interpreted and the report reviewed and electronically signed by: SAMMI MANRIQUEZ MD on May 02 2020 6:19AM EST [facility] XR Lumbar spine 3 ViewsOrder ed By: [facility] Provider on 05-02-2020 [facility] XR Lumbar spine 3 Viewson Radiology Study observation (narrative) [facility] Vital Signs Date Time Vital Sign Value Performing Clinician Facility 08-05-2024 11:35-0400 Body mass index (BMI) [Ratio] 34.4 kg/m2 Nikki Javier MD Work Phone: [facility] 08-05-2024 11:35-0400 Body temperature 98.01 [degF] Nikki Javier MD Work Phone: [facility] 08-05-2024 11:35-0400 Body weight 90.9 kg Nikki Javier MD Work Phone: [facility] 08-05-2024 11:35-0400 Diastolic blood pressure 87 mm[Hg] Nikki Javier MD Work Phone: [facility] 08-05-2024 11:35-0400 Heart rate 61 /min Nikki Javier MD Work Phone: [facility] 08-05-2024 11:35-0400 SaO2% (BldA) [Mass fraction] 96 % Nikki Javier MD Work Phone: [facility] 08-05-2024 11:35-0400 Systolic blood pressure 144 mm[Hg] Nikki Javier MD Work Phone: [facility] 05-01-2024 14:48-0500 Body temperature 97.9 [degF] Meron David-Eibara ASSEMBLER CONVERTIBLE TOP.SHIRT IRONER SUPERVISOR Work Phone: [facility] 05-01-2024 14:48-0500 Diastolic blood pressure 92 mm[Hg] Meron David-Eibara ASSEMBLER CONVERTIBLE TOP.SHIRT IRONER SUPERVISOR Work Phone: [facility] 05-01-2024 14:48-0500 Heart rate 69 /min Meron David-Eibara ASSEMBLER CONVERTIBLE TOP.SHIRT IRONER SUPERVISOR Work Phone: [facility] 05-01-2024 14:48-0500 Respiratory rate 20 /min Meron David-Eibara ASSEMBLER CONVERTIBLE TOP.SHIRT IRONER SUPERVISOR Work Phone: [facility] 05-01-2024 14:48-0500 SaO2% (BldA) [Mass fraction] 97 % Meron David-Eibara ASSEMBLER CONVERTIBLE TOP.SHIRT IRONER SUPERVISOR Work Phone: [facility] 05-01-2024 14:48-0500 Systolic blood pressure 142 mm[Hg] Meron David-Eibara ASSEMBLER CONVERTIBLE TOP.SHIRT IRONER SUPERVISOR Work Phone: [facility] 04-19-2024 10:57-0500 Body mass index (BMI) [Ratio] 35.59 kg/m2 Nikki Javier MD Work Phone: [facility] 04-19-2024 10:57-0500 Body temperature 97 [degF] Nikki Javier MD Work Phone: [facility] 04-19-2024 10:57-0500 Body weight 94.05 kg Nikki Javier MD Work Phone: [facility] 04-19-2024 10:57-0500 Diastolic blood pressure 98 mm[Hg] Nikki Javier MD Work Phone: [facility] 04-19-2024 10:57-0500 Heart rate 62 /min Nikki Javier MD Work Phone: [facility] 04-19-2024 10:57-0500 SaO2% (BldA) [Mass fraction] 97 % Nikki Javier MD Work Phone: [facility] 04-19-2024 10:57-0500 Systolic blood pressure 155 mm[Hg] Nikki Javier MD Work Phone: [facility] 04-12-2024 08:25-0500 Body height 162.6 cm Christo Warren MD Work Phone: [facility] 04-12-2024 08:25-0500 Body mass index (BMI) [Ratio] 35.36 kg/m2 Christo Warren MD Work Phone: [facility] 04-12-2024 08:25-0500 Body weight 93.44 kg Christo Warren MD Work Phone: [facility] 04-12-2024 08:25-0500 Diastolic blood pressure 86 mm[Hg] Christo Warren MD Work Phone: [facility] 04-12-2024 08:25-0500 Heart rate 67 /min Christo Warren MD Work Phone: [facility] 04-12-2024 08:25-0500 Systolic blood pressure 158 mm[Hg] Christo Warren MD Work Phone: [facility] 12-01-2023 11:40-0400 Diastolic blood pressure 83 mm[Hg] Rachel Martins APRN.SHIRT IRONER SUPERVISOR Work Phone: [facility] Comment on above: bp lara average 12-01-2023 11:40-0400 Heart rate 64 /min Rachel Martins ASSEMBLER CONVERTIBLE TOP.SHIRT IRONER SUPERVISOR Work Phone: [facility] 12-01-2023 11:40-0400 Systolic blood pressure 138 mm[Hg] Rachel Lakshmi ASSEMBLER CONVERTIBLE TOP.SHIRT IRONER SUPERVISOR Work Phone: [facility] Comment on above: bp lara average 11-20-2023 12:21-0400 Diastolic blood pressure 90 mm[Hg] Rachel Lakshmi ASSEMBLER CONVERTIBLE TOP.SHIRT IRONER SUPERVISOR Work Phone: [facility] 11-20-2023 12:21-0400 SaO2% (BldA) [Mass fraction] 96 % Rachel Lakshmi ASSEMBLER CONVERTIBLE TOP.SHIRT IRONER SUPERVISOR Work Phone: [facility] 11-20-2023 12:21-0400 Systolic blood pressure 156 mm[Hg] Rachel WebbLakshmi ASSEMBLER CONVERTIBLE TOP.SHIRT IRONER SUPERVISOR Work Phone: [facility] 11-20-2023 12:00-0400 Body mass index (BMI) [Ratio] 34.7 kg/m2 Rachel Lakshmi ASSEMBLER CONVERTIBLE TOP.SHIRT IRONER SUPERVISOR Work Phone: [facility] 11-20-2023 12:00-0400 Body temperature 98.4 [degF] Rachel VitalLakshmi ASSEMBLER CONVERTIBLE TOP.SHIRT IRONER SUPERVISOR Work Phone: [facility] 11-20-2023 12:00-0400 Body weight 91.7 kg Rachel WebbLakshmi ASSEMBLER CONVERTIBLE TOP.SHIRT IRONER SUPERVISOR Work Phone: [facility] 11-20-2023 12:00-0400 Heart rate 64 /min Rachel WebbLakshmi ASSEMBLER CONVERTIBLE TOP.SHIRT IRONER SUPERVISOR Work Phone: [facility] 11-20-2023 12:00-0400 Respiratory rate 16 /min Rachel WebbLakshmi ASSEMBLER CONVERTIBLE TOP.SHIRT IRONER SUPERVISOR Work Phone: [facility] 11-17-2023 13:50-0400 Body mass index (BMI) [Ratio] 34.83 kg/m2 Nikki Javier MD Work Phone: [facility] 11-17-2023 13:50-0400 Body temperature 97.81 [degF] Nikki Javier MD Work Phone: [facility] 11-17-2023 13:50-0400 Body weight 92.05 kg Nikki Javier MD Work Phone: [facility] 11-17-2023 13:50-0400 Diastolic blood pressure 64 mm[Hg] Nikki Javier MD Work Phone: [facility] 11-17-2023 13:50-0400 Heart rate 67 /min Nikki Javier MD Work Phone: [facility] 11-17-2023 13:50-0400 SaO2% (BldA) [Mass fraction] 95 % Nikki Javier MD Work Phone: [facility] 11-17-2023 13:50-0400 Systolic blood pressure 129 mm[Hg] Nikki Javier MD Work Phone: [facility] 11-11-2023 17:39-0400 Body mass index (BMI) [Ratio] 35.5 kg/m2 Krislyn Aberegg PA Work Phone: [facility] 11-11-2023 17:39-0400 Body temperature 98.4 [degF] Krislyn Aberegg PA Work Phone: [facility] 11-11-2023 17:39-0400 Body weight 93.8 kg Krislyn Aberegg PA Work Phone: [facility] 11-11-2023 17:39-0400 Diastolic blood pressure 84 mm[Hg] Krislyn Aberegg PA Work Phone: [facility] 11-11-2023 17:39-0400 Heart rate 67 /min Krislyn Aberegg PA Work Phone: [facility] 11-11-2023 17:39-0400 Respiratory rate 16 /min Krislyn Aberegg PA Work Phone: [facility] 11-11-2023 17:39-0400 SaO2% (BldA) [Mass fraction] 96 % Krislyn Aberegg PA Work Phone: [facility] 11-11-2023 17:39-0400 Systolic blood pressure 136 mm[Hg] Krislyn Aberegg PA Work Phone: [facility] 10-06-2023 11:07-0400 Body height 162.6 cm Christo Warren MD Work Phone: [facility] 10-06-2023 11:07-0400 Body mass index (BMI) [Ratio] 34.67 kg/m2 Christo Warren MD Work Phone: [facility] 10-06-2023 11:07-0400 Body weight 91.63 kg Christo Warren MD Work Phone: [facility] 10-06-2023 11:07-0400 Diastolic blood pressure 88 mm[Hg] Christo Warren MD Work Phone: [facility] 10-06-2023 11:07-0400 Heart rate 64 /min Christo Warren MD Work Phone: [facility] 10-06-2023 11:07-0400 SaO2% (BldA) [Mass fraction] 96 % Christo Warren MD Work Phone: [facility] 10-06-2023 11:07-0400 Systolic blood pressure 134 mm[Hg] Christo Warren MD Work Phone: [facility] 09-29-2023 15:49-0400 Body height 162.6 cm Bonny Omer ASSEMBLER CONVERTIBLE TOP.SHIRT IRONER SUPERVISOR Work Phone: [facility] 09-29-2023 15:49-0400 Body mass index (BMI) [Ratio] 34.33 kg/m2 Bonny Omer ASSEMBLER CONVERTIBLE TOP.SHIRT IRONER SUPERVISOR Work Phone: [facility] 09-29-2023 15:49-0400 Body temperature 97.59 [degF] Bonny Omer ASSEMBLER CONVERTIBLE TOP.SHIRT IRONER SUPERVISOR Work Phone: [facility] 09-29-2023 15:49-0400 Body weight 90.72 kg Bonny Omer ASSEMBLER CONVERTIBLE TOP.SHIRT IRONER SUPERVISOR Work Phone: [facility] 09-29-2023 15:49-0400 Diastolic blood pressure 72 mm[Hg] Bonny Omer ASSEMBLER CONVERTIBLE TOP.SHIRT IRONER SUPERVISOR Work Phone: [facility] 09-29-2023 15:49-0400 Heart rate 74 /min Bonny Omer ASSEMBLER CONVERTIBLE TOP.SHIRT IRONER SUPERVISOR Work Phone: [facility] 09-29-2023 15:49-0400 SaO2% (BldA) [Mass fraction] 100 % Bonny Omer ASSEMBLER CONVERTIBLE TOP.SHIRT IRONER SUPERVISOR Work Phone: [facility] 09-29-2023 15:49-0400 Systolic blood pressure 138 mm[Hg] Bonny Omer ASSEMBLER CONVERTIBLE TOP.SHIRT IRONER SUPERVISOR Work Phone: [facility] 09-08-2023 09:57-0400 Body height 162.6 cm Christo Warren MD Work Phone: [facility] 09-08-2023 09:57-0400 Body mass index (BMI) [Ratio] 33.99 kg/m2 Christo Warren MD Work Phone: [facility] 09-08-2023 09:57-0400 Body weight 89.81 kg Christo Warren MD Work Phone: [facility] 09-08-2023 09:57-0400 Diastolic blood pressure 82 mm[Hg] Christo Warren MD Work Phone: [facility] 09-08-2023 09:57-0400 Heart rate 65 /min Christo Warren MD Work Phone: [facility] 09-08-2023 09:57-0400 SaO2% (BldA) [Mass fraction] 98 % Christo Warren MD Work Phone: [facility] 09-08-2023 09:57-0400 Systolic blood pressure 146 mm[Hg] Christo Warren MD Work Phone: [facility] 02-24-2023 17:32-0500 Diastolic blood pressure 88 mm[Hg] Christo Warren MD Work Phone: [facility] 02-24-2023 17:32-0500 Systolic blood pressure 138 mm[Hg] Christo Warren MD Work Phone: [facility] 02-24-2023 16:57-0500 Body height 162.6 cm Christo Warren MD Work Phone: [facility] 02-24-2023 16:57-0500 Body weight 88.91 kg Christo Warren MD Work Phone: [facility] 02-24-2023 16:57-0500 Heart rate 79 /min Christo Warren MD Work Phone: [facility] 02-24-2023 16:57-0500 SaO2% (BldA) [Mass fraction] 96 % Christo Warren MD Work Phone: [facility] 03-31-2022 14:47-0500 Body temperature 98.01 [degF] Juan Carlos Andrae ASSEMBLER CONVERTIBLE TOP.SHIRT IRONER SUPERVISOR Work Phone: [facility] 03-31-2022 14:47-0500 Body weight 96.16 kg Juan Carlos Andrae ASSEMBLER CONVERTIBLE TOP.SHIRT IRONER SUPERVISOR Work Phone: [facility] 03-31-2022 14:47-0500 Diastolic blood pressure 82 mm[Hg] Juan Carlos Andrae ASSEMBLER CONVERTIBLE TOP.SHIRT IRONER SUPERVISOR Work Phone: [facility] 03-31-2022 14:47-0500 Heart rate 69 /min Juan Carlos Andrae ASSEMBLER CONVERTIBLE TOP.SHIRT IRONER SUPERVISOR Work Phone: [facility] 03-31-2022 14:47-0500 Respiratory rate 16 /min Juan Carlos Andrae ASSEMBLER CONVERTIBLE TOP.SHIRT IRONER SUPERVISOR Work Phone: [facility] 03-31-2022 14:47-0500 SaO2% (BldA) [Mass fraction] 98 % Juan Carlos Andrae ASSEMBLER CONVERTIBLE TOP.SHIRT IRONER SUPERVISOR Work Phone: [facility] 03-31-2022 14:47-0500 Systolic blood pressure 120 mm[Hg] Juan Carlos Andrae ASSEMBLER CONVERTIBLE TOP.SHIRT IRONER SUPERVISOR Work Phone: [facility] Encounters Encounter Date Encounter Type Care Provider Facility Start: 09-08-2024 End: 09-08-2024 [facility] Start: 09-08-2024 End: 09-08-2024 Patient encounter procedure Gabriella Diaz MA [facility] [place] Comment on above: Population Health Na vigation Outreach [facility] [facility] [place] [facility] Start: 09-06-2024 End: 09-07-2024 ambulatory Mis Montgomery PT Work Phone: [facility] Comment on above: Posture abnormality [...] syndrome) Start: 08-05-2024 End: 08-05-2024 ambulatory NIKKI AJVIER Facility:[facility] Start: 06-11-2024 End: 06-11-2024 ambulatory Elba Barron RN Work Phone: [employer] Comment on above: Initial enrollment o kendra for Chronic Disease Management Start: 05-10-2024 End: 05-10-2024 Telephone encounter Christo Warren MD Work Phone: [facility] Comment on above: Patient Request Start: 05-06-2024 End: 05-06-2024 ambulatory Alexandra Brantley MA [facility] [place] Start: 05-06-2024 End: 05-06-2024 Patient encounter procedure Alexandra Brantley MA [facility] Comment on above: Population Health Na vigation Outreach ([employer] High Risk Attempt #1 ) Start: 05-01-2024 End: 05-01-2024 ambulatory SELF Facility:[id number] Start: 05-01-2024 End: 05-01-2024 Patient encounter procedure Meron Cooper APRN.CNP Work Phone: [facility] Comment on above: Bronchitis (Primary Dx) Start: 04-19-2024 End: 04-19-2024 ambulatory NIKKI JAVIER Facility:[facility] Start: 04-19-2024 End: 04-19-2024 Patient encounter procedure Nikki Javier MD Work Phone: Neurology Comment on above: Parkinson's disease without dyskinesia or fluctuating manifestations (HCC) (Primary Dx); RLS (restless legs syndrome) Start: 04-12-2024 End: 04-12-2024 ambulatory CHRISTO WARREN Facility:[facility] Start: 04-12-2024 End: 04-12-2024 Patient encounter procedure Christo Warren MD Work Phone: [facility] Comment on above: Essential hypertensi on (Primary Dx); Anxiety and depression; Parkinson's disease, unspecified whether dyskinesia present, unspecified whether manifestations fluctuate (HCC); History of colonic polyps Start: 03-29-2024 End: 03-29-2024 ambulatory CHRISTO WARREN Facility:[facility] Start: 03-10-2024 End: 03-10-2024 Refill Christo Warren MD Work Phone: [facility] Comment on above: Refill Request Start: 02-13-2024 ambulatory [facility] Start: 02-13-2024 End: 02-13-2024 ambulatory [facility] Facility:[facility] Start: 01-15-2024 End: 01-15-2024 Telephone encounter Christo Warren MD Work Phone: [facility] Comment on above: Orders Start: 01-15-2024 ambulatory [facility] Facility:[facility] Start: 01-05-2024 ambulatory [facility] Facility:[facility] Start: 12-31-2023 End: 02-09-2024 Admission to same day surgery center [facility] Provider General Surgery Comment on above: COLON INFO Start: 12-31-2023 End: 02-09-2024 E-mail encounter from caregiver [facility] Provider General Surgery Start: 12-01-2023 End: 12-01-2023 Telephone encounter Rachel Martins APRN.CNP Work Phone: Internal Medicine [place] Comment on above: Blood Pressure Check Start: 12-01-2023 End: 12-01-2023 ambulatory RACHEL MARTINS Facility:[facility] Start: 12-01-2023 End: 12-01-2023 Patient encounter procedure Rachel Janell Lakshmi COLE.SHIRT IRONER SUPERVISOR Work Phone: [facility] [place] Comment on above: Essential hypertensi on (Primary Dx) Start: 11-20-2023 End: 11-20-2023 Telephone encounter Christo Warren MD Work Phone: [facility] [place] Comment on above: Patient Question Start: 11-20-2023 End: 11-20-2023 ambulatory RACHEL RANKINR Facility:[facility] Start: 11-20-2023 End: 11-20-2023 Patient encounter procedure Rachel Maciel Lakshmi ASSEMBLER CONVERTIBLE TOP.SHIRT IRONER SUPERVISOR Work Phone: [facility] [place] Comment on above: Acute cough (Primary Dx); Essential hypertension Start: 11-17-2023 End: 11-17-2023 ambulatory NIKKI JAVIER Facility:[facility] Start: 11-17-2023 End: 11-17-2023 Patient encounter procedure Nikki Javier MD Work Phone: Neurology Comment on above: Parkinson's disease without dyskinesia or fluctuating manifestations (HCC) (Primary Dx) Start: 11-11-2023 End: 11-11-2023 ambulatory CHRISTO WARREN Facility:[facility] Start: 11-11-2023 End: 11-11-2023 Patient encounter procedure Israel CAMPBELL Work Phone: [facility] Comment on above: Acute otitis media, right (Primary Dx); Acute cough Start: 10-06-2023 End: 10-06-2023 ambulatory CHRISTO WARREN Facility:[facility] Start: 10-06-2023 End: 10-06-2023 Patient encounter procedure Christo Warren MD Work Phone: [facility] [place] Comment on above: Essential hypertensi on (Primary Dx) Start: 10-01-2023 End: 01-27-2024 Telephone encounter Bonny Bains APRN.SHIRT IRONER SUPERVISOR Work Phone: General Surgery Comment on above: Appointment Start: 09-29-2023 End: 09-29-2023 ambulatory BONNY BAINS Facility:[facility] Start: 09-29-2023 End: 09-29-2023 Patient encounter procedure Bonny Bains ASSEMBLER CONVERTIBLE TOPSandroSHIRT IRONER SUPERVISOR Work Phone: General Surgery Comment on above: FH: colon cancer in first degree relative <60 years old (Primary Dx); History of colonic polyps Start: 09-08-2023 Telephone encounter Christo Warren MD Work Phone: [facility] [place] Comment on above: Patient Question Start: 09-08-2023 End: 09-08-2023 ambulatory CHRISTO WARREN Facility:[facility] Start: 09-08-2023 End: 09-08-2023 Patient encounter procedure Crhisto Warren MD Work Phone: [facility] [place] Comment on above: Essential hypertensi on (Primary Dx); Anxiety and depression; RLS (restless legs syndrome); Screening for prostate cancer; Elevated PSA; History of colonic polyps; Gait disorder; Bradykinesia Start: 09-01-2023 Refill Christo Warren MD Work Phone: [facility] [place] Comment on above: Medication Question Start: 07-29-2023 Refill Christo [facility] MD [facility]: [facility] Comment on above: Refill Request Lab Orders Start: 03-04-2023 Telephone encounter Christo Warren MD Work Phone: [facility] Comment on above: Results Start: 02-28-2023 ambulatory Christo Warren MD Work Phone: [facility] Start: 02-24-2023 End: 02-24-2023 Patient encounter procedure Crhisto Warren MD Work Phone: [facility] [place] Comment on above: RLS (restless legs s yndrome) (Primary Dx); Hyperbilirubinemia; Abnormal blood cell count; Elevated PSA; Primary hypertension Start: 02-03-2023 Refill Christo Warren MD Work Phone: [facility] [place] Comment on above: Refill Request (SEE RX NOTES) Start: 01-24-2023 ambulatory Xochitl Justin ([facility] [place] Comment on above: Population Health Na vigation Outreach ([employer] care gaps) Start: 01-20-2023 Telephone encounter Christo Warren MD Work Phone: [facility] [place] Comment on above: Results Start: 01-14-2023 Telephone encounter Christo Warren MD Work Phone: [facility] [place] Comment on above: Medication Problem ( Gabapentin) Start: 01-08-2023 Telephone encounter Christo Warren MD Work Phone: [facility] [place] Start: 01-07-2023 ambulatory Christo Warren MD Work Phone: [facility] [place] Comment on above: Sleep Problem unable to sleep Start: 09-13-2022 ambulatory Katrina Tovar [facility] [place] Comment on above: Population Health Na vigation Outreach ([employer] Care Gaps 5.30.23) Start: 04-05-2022 Refill Christo Warren MD Work Phone: [facility] Comment on above: Refill Request Start: 04-02-2022 ambulatory Christo Warren MD Work Phone: [facility] Comment on above: Allied Health Visit (Medication Adherence Outreach) Start: 03-31-2022 End: 03-31-2022 Patient encounter procedure Juan Carlos Abebe ASSEMBLER CONVERTIBLE TOP.SHIRT IRONER SUPERVISOR Work Phone: [facility] Comment on above: Tooth ache (Primary Dx) Start: 12-17-2021 ambulatory [facility] [place] Comment on above: Population Health Na vigation Outreach ([employer] Care Gaps) Start: 11-07-2021 Refill Christo Warren MD Work Phone: [employer] Comment on above: Refill Request Start: 05-01-2020 End: 05-01-2020 Subsequent hospital visit by physician Sil[facility] [place] Work Phone: Radiology Comment on above: [...] 02-12-2029 Screening for malignant neoplasm of colon [facility] Start: 2028 RSV Vaccine (1 - 1-dose 75+ series) RSV Vaccine (1 - 1-dose 75+ series) [facility] Start: 01-21-2028 Lipid 1996 panel - Serum or Plasma Lipid Screening [facility] Start: 01-21-2028 Lipid panel Lipid Screening [facility] Start: 01-20-2026 Diabetes Screening Diabetes Screening [facility] Start: 04-12-2025 Annual PCP Team Chronic Disease Visit Annual PCP Team Chronic Disease Visit [facility] Start: 04-12-2025 Covid-19 Vaccine ( season) Covid-19 Vaccine ( season) [facility] Comment on above: Postponed from 11/23/2023 (Declined at t his time) Start: 04-12-2025 Pneumococcal Vaccine: 50+ (1 of 1 - PCV) Pneumococcal Vaccine: 50+ (1 of 1 - PCV) [facility] Comment on above: Postponed from 06/20/2003 (Declined at t his time) Start: 04-12-2025 Shingrix Vaccine (1 of 2) Shingrix Vaccine (1 of 2) [facility] Comment on above: Postponed from 06/20/2003 (Declined at t his time) Start: 04-12-2025 Urine microalbumin profile DTaP,Tdap,Td Vaccine (1 - Tdap) [facility] Comment on above: Postponed from 1972 (Declined at t his time) Start: 02-21-2025 End: 02-21-2025 Patient encounter procedure Neurology Comment on above: 5 Month follow up Start: 11-30-2024 Annual PCP Team Chronic Disease Visit Annual PCP Team Chronic Disease Visit [facility] Start: 11-22-2024 Influenza vaccination Influenza Vaccine (Season Ended) [facility] Start: 11-19-2024 Annual PCP Team Chronic Disease Visit Annual PCP Team Chronic Disease Visit [facility] Start: 11-16-2024 End: 11-16-2024 Patient encounter procedure 11/16/2024 8:40 AM EDT Office Visit [facility] [place] [address] [place] [address] Christo Warren MD [address] [facility] [place] [address] Follow up - BP [facility] [place] Comment on above: Follow up - BP Start: 10-18-2024 End: 10-18-2024 Patient encounter procedure 10/18/2024 11:00 AM EDT Office Visit Neurology [address] [facility] [place] [phone] Nikki Javier MD [address] [facility] [address] [place], [place] [phone] 6m follow up Neurology Comment on above: 6m follow up Start: 10-05-2024 Annual PCP Team Chronic Disease Visit Annual PCP Team Chronic Disease Visit [facility] Start: 09-20-2024 Influenza vaccination Influenza Vaccine (#1) [place] [facility] Comment on above: Postponed from 11/23/2023 (Declined at t his time) Start: 09-07-2024 Annual PCP Team Chronic Disease Visit Annual PCP Team Chronic Disease Visit [facility] Start: 09-06-2024 End: 09-06-2024 ambulatory 09/06/2024 4:30 PM EDT OT/PT/Speech Visit [facility] [address] [place] [address] Mis Montgomery, PT [address] [place], [place] [phone] Parkinson's disease without dyskinesia or fluctuating manifestations (HCC) [G20.A1] [facility] Comment on above: Parkinson's disease without dyskinesia o r fluctuating manifestations (HCC) [G20.A1] Start: 08-10-2024 End: 11-09-2024 Comprehensive metabolic 2000 panel - Serum or Plasma COMPREHENSIVE METABOLIC PANEL Lab Routine Essential hypertension Expected: 08/10/2024, Expires: 11/09/2024 [facility] Work Phone: Comment on above: Expected: 08/10/2024, Expires: Start: 08-10-2024 End: 11-09-2024 Lipid 1996 panel - Serum or Plasma LIPID PANEL BASIC Lab Routine Essential hypertension Expected: 08/10/2024, Expires: 11/09/2024 [facility] Comment on above: Expected: 08/10/2024, Expires: Start: 07-15-2024 End: 10-14-2024 Comprehensive metabolic 2000 panel - Serum or Plasma COMPREHENSIVE METABOLIC PANEL Lab Routine Screening for malignant neoplasm of prostate Elevated PSA Essential hypertension Expected: 07/15/2024, Expires: 10/14/2024 [facility] Comment on above: Expected: 07/15/2024, Expires: Start: 07-15-2024 End: 10-14-2024 Lipid 1996 panel - Serum or Plasma LIPID PANEL BASIC Lab Routine Screening for malignant neoplasm of prostate Elevated PSA Essential hypertension Expected: 07/15/2024, Expires: 10/14/2024 [facility] Comment on above: Expected: 07/15/2024, Expires: Start: 04-19-2024 End: 04-19-2024 Patient encounter procedure 04/19/2024 11:30 AM EST Office Visit Neurology [address] [facility] [place] [phone] Nikki Javier MD [address] [facility] [place] [address] Four month follow up Neurology Comment on above: Four month follow up Start: 04-12-2024 End: 04-12-2024 Patient encounter procedure 04/12/2024 8:40 AM EST Office Visit [facility] [place] [address] [place] [phone] Christo Warren MD [address] [place] [id number] 6 month follow up [facility] [place] Comment on above: 6 month follow up Start: 03-24-2024 Medicare Advantage Annual Wellness Visit Medicare Advantage Annual Wellness Visit [facility] Start: 02-25-2024 Annual PCP Team Chronic Disease Visit Annual PCP Team Chronic Disease Visit [facility] Start: 02-25-2024 Covid-19 Vaccine ( season) Covid-19 Vaccine ( season) [facility] Comment on above: Postponed from 11/22/2022 (Declined at t his time) Start: 02-25-2024 Pneumococcal Vaccine: 65+ (1 - PCV) Pneumococcal Vaccine: 65+ (1 - PCV) [facility] Comment on above: Postponed from 2018 (Declined at t his time) Start: 02-25-2024 Pneumococcal Vaccine: 65+ (1 of 1 - PCV) Pneumococcal Vaccine: 65+ (1 of 1 - PCV) [facility] Comment on above: Postponed from 2018 (Declined at t his time) Start: 02-25-2024 RSV Vaccine (1 - 1-dose 60+ series) RSV Vaccine (1 - 1-dose 60+ series) [facility] Comment on above: Postponed from 2013 (Declined at t his time) Start: 02-25-2024 Shingrix Vaccine (1 of 2) Shingrix Vaccine (1 of 2) [facility] Comment on above: Postponed from 06/20/2003 (Declined at t his time) Start: 02-25-2024 Urine microalbumin profile DTaP,Tdap,Td Vaccine (1 - Tdap) [facility] Comment on above: Postponed from 1972 (Declined at t his time) Start: 01-15-2024 End: 04-15-2024 CBC W Auto Differential panel - Blood COMPLETE BLOOD COUNT AND DIFFERENTIAL Lab Routine Screening for malignant neoplasm of prostate Elevated PSA Essential hypertension Expected: 01/15/2024, Expires: 04/15/2024 [facility] Work Phone: Comment on above: Expected: 01/15/2024, Expires: Start: 01-15-2024 End: 04-15-2024 Prostate Specific Ag Free [Mass/volume] in Serum or Plasma PROSTATE SPECIFIC ANTIGEN, FREE Lab Routine Screening for malignant neoplasm of prostate Elevated PSA Essential hypertension Expected: 01/15/2024, Expires: 04/15/2024 [facility] Comment on above: Expected: 01/15/2024, Expires: Start: 01-10-2024 Annual PCP Team Chronic Disease Visit Annual PCP Team Chronic Disease Visit [facility] Start: 12-01-2023 End: 12-01-2023 Patient encounter procedure 12/01/2023 11:40 AM EDT Office Visit [facility] [place] [address] [facility], [place] [phone] Rachel Martins, ASSEMBLER CONVERTIBLE TOP.SHIRT IRONER SUPERVISOR [address] [facility] [place], [place] [address] bp check [facility] [place] Comment on above: bp check Start: 11-23-2023 Covid-19 Vaccine ( season) Covid-19 Vaccine () [facility] Start: 11-23-2023 Covid-19 Vaccine () Covid-19 Vaccine () [facility] Start: 11-23-2023 Influenza vaccination [facility] Start: 11-17-2023 End: 11-17-2023 Patient encounter procedure 11/17/2023 2:00 PM EDT Office Visit Neurology [address] [facility] [place] [phone] Nikki Javier MD [address] [facility] [place] [address] 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] Neurology Comment on above: 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] Start: 10-06-2023 End: 10-06-2023 Patient encounter procedure 10/06/2023 11:20 AM EDT Office Visit [facility] [place] [address] [facility], [place] [phone] Christo Warren MD [address] [place], [place] [phone] 4 week follow up [facility] [place] Comment on above: 4 week follow up Start: 09-29-2023 End: 09-29-2023 Patient encounter procedure 09/29/2023 4:00 PM EDT Office Visit General Surgery [address] [place] [address] Eulalio Mohan MD [address] [place] [address] History of colonic polyps [Z86.010] General Surgery Comment on above: History of colonic polyps [Z86.010] Start: 09-21-2023 Influenza vaccination Influenza Vaccine (#1) [facility] Comment on above: Postponed from 11/22/2022 (Declined at t his time) Start: 09-08-2023 End: 12-08-2023 Prostate Specific Ag Free [Mass/volume] in Serum or Plasma PROSTATE SPECIFIC ANTIGEN, FREE Lab Routine Screening for prostate cancer Elevated PSA Expected: 09/08/2023, Expires: 12/08/2023 [facility] Work Phone: Comment on above: Expected: 09/08/2023, Expires: Start: 09-08-2023 End: 12-08-2023 PSA/PROSTATE SPECIFIC ANTIGEN SCREENING PSA/PROSTATE SPECIFIC ANTIGEN SCREENING Lab Routine Screening for prostate cancer Elevated PSA Expected: 09/08/2023, Expires: 12/08/2023 [facility] Comment on above: Expected: 09/08/2023, Expires: Start: 09-08-2023 End: 09-08-2023 Patient encounter procedure 09/08/2023 10:00 AM EDT Office Visit [facility] [address] [place] [address] Christo Warren MD [address] [facility] [place], [place] [address] 6 month follow up [facility] Comment on above: 6 month follow up Start: 03-24-2023 Advance Directive Discussion Advance Directive Discussion [facility] Start: 03-04-2023 End: 06-03-2023 CBC W Ordered Manual Differential panel - Blood PATHOLOGIST INTERPRETATION WITH CBC AND DIFF Lab Routine Hyperbilirubinemia Expected: 03/04/2023, Expires: 06/03/2023 [facility] Work Phone: Comment on above: Expected: 03/04/2023, Expires: Start: 03-04-2023 End: 06-03-2023 Hepatic function 2000 panel - Serum or Plasma HEPATIC FUNCTION PNL Lab Routine Hyperbilirubinemia Expected: 03/04/2023, Expires: 06/03/2023 [facility] Work Phone: Comment on above: Expected: 03/04/2023, Expires: 4 Start: 03-04-2023 End: 06-03-2023 bilirubin panel [Mass/volume] - Serum or Plasma BILIRUBIN FRACTION Lab Routine Hyperbilirubinemia Expected: 03/04/2023, Expires: 06/03/2023 [facility] Work Phone: Comment on above: Expected: 03/04/2023, Expires: 4 Start: 03-04-2023 End: 06-03-2023 RETIC COUNT RETIC COUNT Lab Routine Hyperbilirubinemia Expected: 03/04/2023, Expires: 06/03/2023 [facility] Work Phone: Comment on above: Expected: 03/04/2023, Expires: 4 Start: 01-20-2023 End: 04-21-2023 CBC W Auto Differential panel - Blood CBC + DIFF Lab Routine Abnormal blood cell count Expected: 01/20/2023, Expires: 04/21/2023 [facility] Work Phone: Comment on above: Expected: 01/20/2023, Expires: 4 Start: 01-20-2023 End: 04-21-2023 bilirubin panel [Mass/volume] - Serum or Plasma BILIRUBIN FRACTION Lab Routine Hyperbilirubinemia Expected: 01/20/2023, Expires: 04/21/2023 [facility] Work Phone: Comment on above: Expected: 01/20/2023, Expires: 4 Start: 12-19-2022 COLORECTAL CANCER SCREENING COLORECTAL CANCER SCREENING [facility] Start: 12-19-2022 FECAL OCCULT BLOOD FECAL OCCULT BLOOD [facility] Start: 12-19-2022 Screening for malignant neoplasm of colon [facility] Start: 11-22-2022 Covid-19 Vaccine () Covid-19 Vaccine () [facility] Start: 11-22-2022 Influenza vaccination [facility] Start: 11-19-2022 ANNUAL PCP TEAM CHRONIC DISEASE VISIT ANNUAL PCP TEAM CHRONIC DISEASE VISIT [facility] Start: 07-15-2022 Screening for malignant neoplasm of colon [facility] Start: 03-24-2022 ADVANCE DIRECTIVE DISCUSSION ADVANCE DIRECTIVE DISCUSSION [facility] Start: 03-12-2022 BP CONTROLLED (<130/80) BP CONTROLLED (<130/80) [facility] Start: 11-22-2021 Influenza vaccination INFLUENZA (#1) [facility] Start: 05-26-2021 COVID-19 VACCINE (4 - Booster for Moderna series) COVID-19 VACCINE (4 - Booster for Moderna series) [facility] Start: 05-01-2021 ANNUAL PCP TEAM CHRONIC DISEASE VISIT ANNUAL PCP TEAM CHRONIC DISEASE VISIT [facility] Start: 03-24-2021 ADVANCE DIRECTIVE DISCUSSION ADVANCE DIRECTIVE DISCUSSION [facility] Start: 11-24-2020 COVID-19 VACCINE (3 - Booster for Moderna series) COVID-19 VACCINE (3 - Booster for Moderna series) [facility] Start: 08-30-2020 Lipid 1996 panel - Serum or Plasma Lipid Screening [facility] Start: 08-30-2020 LIPID SCREEN LIPID SCREEN [facility] Start: 08-30-2020 PROSTATE CANCER SCREENING DISCUSSION PROSTATE CANCER SCREENING DISCUSSION [facility] Start: 07-16-2019 Colonoscopy COLONOSCOPY [facility] Start: 07-16-2019 COLORECTAL CANCER SCREENING COLORECTAL CANCER SCREENING [facility] Start: 10-30-2018 BP CONTROLLED (<130/80) BP CONTROLLED (<130/80) [facility] Start: 08-30-2018 DIABETES SCREEN DIABETES SCREEN [facility] Start: 08-30-2018 Diabetes Screening Diabetes Screening [facility] Start: 07-15-2018 Colonoscopy COLONOSCOPY [facility] Start: 07-15-2018 Screening for malignant neoplasm of colon Colonoscopy [facility] Start: 2018 Pneumococcal Vaccine: 65+ (1 - PCV) Pneumococcal Vaccine: 65+ (1 - PCV) [facility] Start: 2018 PNEUMOCOCCAL: 65+ (1 - PCV) PNEUMOCOCCAL: 65+ (1 - PCV) [facility] Start: 2013 RSV Vaccine (1 - 1-dose 60+ series) RSV Vaccine (1 - 1-dose 60+ series) [facility] Start: 06-20-2003 Pneumococcal Vaccine: 50+ (1 of 1 - PCV) Pneumococcal Vaccine: 50+ (1 of 1 - PCV) [facility] Start: 06-20-2003 SHINGRIX VACCINE (1 of 2) SHINGRIX VACCINE (1 of 2) [facility] Start: 1998 COLOGUARD (FIT-DNA) COLOGUARD (FIT-DNA) [facility] Start: [address] COLONOGRAPHY [facility] Start: 1998 FECAL OCCULT BLOOD FECAL OCCULT BLOOD [facility] Start: 1998 Screening for malignant neoplasm of colon [facility] Start: 1998 SIGMOIDOSCOPY SIGMOIDOSCOPY [facility] Start: 1972 Urine microalbumin profile [facility] Hemoglobin.gastroint est inal.lower [Presence] in Stool by Immunoassay FECAL OCCULT BLOOD TEST Lab Routine Screening for colon cancer Ordered: 01/24/2023 [facility] Work Phone: Comment on above: Ordered: 01/24/2023 [facility] Immunizations Immunization Date Immunization Notes Care Provider Drew rodriguez 10-30-2017 influenza virus vacc ine, unspecified formulation Christo Warren MD Work Phone: [facility] Payers Date Payer Category Payer Medicare (Managed Care) [employer]ER[employer] TOM [id number] 2024 Self-pay 2024 Unknown [id number] 2020 Medicare [id number] 2020 Private Health Insurance 101 [id number] Unknown [id number] Unknown [id number] Unknown [id number] Unknown [id number] Social History Date Type Detail Facility Start: 08-26-2017 End: 11-19-2021 Tobacco smoking status [facility] Never smoked tobacco [facility] Start: 08-26-2017 End: 11-19-2021 Tobacco use and exposure Smokeless tobacco non-user [facility] Start: 05-01-2020 End: 03-12-2021 Alcohol intake Current drinker of alcohol (finding) [facility] Start: 08-14-2015 History SDOH Alcohol Comment occasionally [facility] Start: 1955 Sex Assigned At Male [facility] Start: 04-01-2020 End: 11-13-2021 Exposure to SARS-CoV-2 (event) Not sure [facility] Work Phone: Start: 11-14-2021 History SDOH Alcohol Frequency 3 [facility] Start: 11-14-2021 History SDOH Alcohol Std Drinks 1 [facility] Start: 11-14-2021 History SDOH Social Connections Phone 4 [facility] Start: 11-14-2021 History SDOH Social Connections Get Together 5 [facility] Start: 11-14-2021 History SDOH Stress 2 [facility] Start: 11-14-2021 End: 01-08-2023 History of Social function [facility] Start: 11-14-2021 End: 01-08-2023 Social connection and isolation panel [facility] Active Member of [facility] bs or Organizations Not on file [facility] Are you now , , , , never or living with a partner? [facility] How often to you hav e a drink containing alcohol? 2-4 times a month [facility] How many standard dr inks containing alcohol do you have on a typical day? 1 or 2 [facility] How often do you hav e 6 or more drinks on 1 occasion? Never [facility] Do you feel stress - tense, restless, nervous, or anxious, or unable to sleep at night because your mind is troubled all the time - these days [OSQ] Only a little [facility] (I/We) worried luis f er (my/our) food would run out before (I/we) got money to buy more. Never true [facility] In the past 12 month s, was there a time when you were not able to pay the mortgage or rent on time? No [facility] Start: 04-25-2020 Gender identity Identifies as male gender (finding) [facility] Start: 04-25-2020 Sexual orientation Heterosexual (finding) [facility] Start: 03-31-2023 End: 08-05-2024 Alcohol intake Ex-drinker (finding) [facility] Functional Status Date Assessment Result Facility 04-07-2014 Are you deaf, or do you have serious difficulty hearing No 04/07/2014 12:13 PM Seven Odom LPN No [facility] 04-07-2014 Are you blind, or do you have serious difficulty seeing, even when wearing glasses No 04/07/2014 12:13 PM Seven Odom LPN No [facility] 04-07-2014 Do you have serious difficulty walking or climbing stairs No 04/07/2014 12:13 PM Seven Odom LPN No [facility] 04-07-2014 Do you have difficul ty dressing or bathing No 04/07/2014 12:13 PM Seven Odom LPN [facility] 04-07-2014 Because of a physica l, mental, or emotional condition, do you have difficulty doing errands alone such as visiting a physician's office or shopping No 04/07/2014 12:13 PM Seven Odom LPN No [facility] Mental Status Date Assessment Result Facility 04-07-2014 Because of a physica l, mental, or emotional condition, do you have serious difficulty concentrating, remembering, or making decisions No 04/07/2014 12:13 PM Seven Odom LPN No [facility] Clinical Notes 09-09-2017 to 09-08-2024 Gabriella Diaz MA - 09/08/2024 2:35 PM Mis Lezama, PT - 09/06/2024 7:18 PM Mis Lezama, PT - 09/06/2024 6:44 PM EDTTelephone Encounter - Nikki Javier MD - 08/18/2024 11:33 AM EDT Note Date & Type Note Facility 09-08-2024 History of Present illness Narrative POPULATION HEALTH NAVIGATION OUTREACH Action/FYI Patient is on [employer] list for below and needs appointment to [...] Patient scheduled/pended orders: Follow-up Appointment 11/16/2024 in [facility] with CHRISTO WARREN - Follow up - BP, Please address due care 02/21/2025 in [facility] with NIKKI JAVIER - 5 Month follow up Navigation Signature: Gabriella Diaz MA September 08, 2024 2:35 PM documented in this encounter [facility] 09-06-2024 History of Present illness Narrative Program_ID:[id number] Access Code: [email or web address] URL: [email or web address] Date: 09-06-2024 Prepared By: Mis Montgomery Program [...] Planned: 6 Planned Treatment Interventions: Therapeutic exercise (92505), Neuromuscular re-education (75452), Therapeutic activities (16348), Self-skilled nursing management (34353), Gait Training (09162), Patient/Family/Caregiver Education, Body Mechanics Training PLAN FOR [...] (RLS) Right or Left Handed: Right 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 [facility] 08-18-2024 Telephone encounter Note This RN placed call back to patient and relayed that TW would like him to stay at current dose that he feels good at (1 tablet BID). No need to continue the titration. Pt appreciated call back to verify. We ended call pleasantly. GAY Moy, RN, BA [facility] Work Phone: 08-18-2024 Miscellaneous Notes This RN [...] the day. Last Office Visit: 08/05/2024 Last [facility] visit: Visit date not found Next scheduled appointment: 02/21/2025 Best number to reach caller: [phone] Best time to reach caller: any Is it OK to leave a detailed voice message? Yes Roberta Paris documented in this encounter [facility] 08-18-2024 Telephone encounter Note May have miscommunicated, he doesn't need to stop it, only stop the titration at the dose that is helping and then continue on that dose rather than continuing to increase. If he feels good on 1 pill twice a day should stay on that dose. [facility] 08-18-2024 Telephone encounter Note This RN called [...] ended call pleasantly. GAY Moy, RN, BA [facility] 08-18-2024 Telephone encounter Note Thanks for the [...] to make sure he remembers! Thanks T [facility] 08-18-2024 Telephone encounter Note Call received for [...] the day. Last Office Visit: 08/05/2024 Last [facility] visit: Visit date not found Next scheduled appointment: 02/21/2025 Best number to reach caller: [phone] Best time to reach caller: any Is it OK to leave a detailed voice message? Yes Roberta Paris T [facility] 08-05-2024 Instructions Nikki Javier MD - 08/05/2024 [...] around 9-10 PM. documented in this encounter [facility] 08-05-2024 Note HNO ID: [id number] Author: NIKKI JAVIER MD Service: ? Author [...] timing. Gave info on PD research at [facility]. HPI Current Issues - Has been [...] Discussed with Patient: YES Nikki Javier MD [facility] Neurology [facility] 08-05-2024 History of Present illness Narrative FOLLOW [...] timing. Gave info on PD research at [facility]. HPI Current Issues - Has been [...] follows: n/a Assessment/Plan ASSESSMENT & PLAN: Markus tSratton is a 69 year old right-handed male [...] Discussed with Patient: YES Nikki Javier MD [facility] Neurology documented in this encounter [facility] 08-05-2024 Note HNO ID: [id number] Author: KACY WOOD LPN Service: ? Author Type: LICENSED NURSE Type: Progress Notes Filed: 08/05/2024 15:11 Note Text: [facility] 07-19-2024 Note HNO ID: [id number] Author: ANTIONE OSWALD CPhT Service: ? Author Type: Wire Mesh Filter Fabricator Type: Progress Notes Filed: 07/19/2024 10:55 Note [...] Oswald CPhT [facility] Based Care Pharmacy Team [facility] 07-19-2024 Note Patient Outreach ( PO) MARKUS STRATTON ([id number]) 1955 [facility] Date Time Provider Department 07/19/24 CHRISTO WARREN [...] 07/19/24 for 90 days Antione Oswald CPhT [facility] Pharmacy Team Allergies As of Date: 07/19/2024 (No Known Allergies) Date Reviewed: 05/01/2024 Reviewed by: Meron Cooper APRN.SHIRT IRONER SUPERVISOR - Fully Assessed Reason for Visit: Allied [...] Encounter Status:Closed by ANTIONE OSWALD on 07/19/24 [facility] 06-11-2024 Note HNO ID: [id number] Author: ELBA BARRON RN Service: ? Author [...] Barron RN June 11, 2024 11:11 AM [facility] 06-11-2024 History of Present illness Narrative CDM [...] 2024 11:11 AM documented in this encounter [facility] 06-11-2024 Note Patient Outreach ([place] [facility] [place] MARKUS STRATTON ([id number]) 1955 [facility] Date Time Provider Department 06/11/24 ELBA BARRON [...] Date Reviewed: 05/01/2024 Reviewed by: Meron Cooper APRN.SHIRT IRONER SUPERVISOR - Fully Assessed Prescriptions as of 06/11/2024 [...] Encounter Status:Closed by ELBA BARRON on 06/11/24 [facility] 05-10-2024 Miscellaneous Notes Patient notified. Given his parkinson's issues and bp, we are limited with cough meds. Almost all the cough meds are now over the counter. I would recommend sticking with delsym or mucinex dm Patient calling to request different cough medication. Patient was seen at [facility] Urgent [facility] on 05/01/24 for cough and azithromycin and [...] headache dizziness, wheezing or SOB. Uses [facility]. Please call patient with PCP response. [phone] Ignacia Bryant RN documented in this encounter [facility] 05-10-2024 Telephone encounter Note Patient notified. [facility] 05-10-2024 Telephone encounter Note Given his parkinson's issues and bp, we are limited with cough meds. Almost all the cough meds are now over the counter. I would recommend sticking with delsym or mucinex dm [facility] 05-10-2024 Telephone encounter Note Patient calling to request different cough medication. Patient was seen at [facility] Urgent [facility] on 05/01/24 for cough and azithromycin and [...] headache dizziness, wheezing or SOB. Uses [facility]. Please call patient with PCP response. [phone] Ignacia Bryant RN [facility] 05-06-2024 Note HNO ID: [id number] Author: ALEXANDRA BRANTLEY MA Service: ? Author Type: Flour Tester Type: Progress Notes Filed: 05/06/2024 15:53 Note Text: POPULATION HEALTH NAVIGATION OUTREACH Action/FYI Spoke to patient. He declines scheduling Annual Wellness. He states he had a colonoscopy two months ago at [facility]. Found report in Scanned documents and [...] Brantley MA May 06, 2024 3:51 PM [facility] 05-06-2024 History of Present illness Narrative POPULATION HEALTH NAVIGATION OUTREACH Action/FYI Spoke to patient. He declines scheduling Annual Wellness. He states he had a colonoscopy two months ago at [facility]. Found report in Scanned documents and [...] 2024 3:51 PM documented in this encounter [facility] 05-06-2024 Note Patient Outreach (JENIFER HAGAN) MARKUS STRATTON ([id number]) 1955 M T Date Time Provider Department 05/06/24 ALEXANDRA BRANTLEY During your visit today, we recorded the following information about you: Alexandra Brantley MA 05/06/2024 3:53 PM Signed POPULATION HEALTH NAVIGATION OUTREACH Action/FYI Spoke to patient. He declines scheduling Annual Wellness. He states he had a colonoscopy two months ago at [facility]. Found report in Scanned documents and [...] Date Reviewed: 05/01/2024 Reviewed by: Meron Cooper APRN.SHIRT IRONER SUPERVISOR - Fully Assessed Reason for Visit: Population [...] Encounter Status:Closed by ALEXANDRA BRANTLEY on 05/06/24 [facility] 05-01-2024 Note HNO ID: [id number] Author: MERON COOPER APRN.SHIRT IRONER SUPERVISOR Service: ? Author Type: Nurse Practitioner Type: [...] go to ER for evaluation. Meron Cooper APRN.SHIRT IRONER SUPERVISOR This note was partially generated using [employer] voice recognition system, and there may be some incorrect words, spellings, and punctuation that were not noted in checking the note before saving. [facility] 05-01-2024 History of Present illness Narrative Markus [...] APRN.CNP This note was partially generated using [employer] voice recognition system, and there may be some incorrect words, spellings, and punctuation that were not noted in checking the note before saving. documented in this encounter [facility] 05-01-2024 Instructions Meron Cooper APRN.CNP - 05/01/2024 [...] the emergency room. documented in this encounter [facility] 04-19-2024 Instructions Nikki Javier MD - 04/19/2024 [...] week then stop. documented in this encounter [facility] 04-19-2024 Note HNO ID: [id number] Author: NIKKI JAVIER MD Service: ? Author [...] timing. Gave info on PD research at [facility]. HPI Current Issues - No clear benefit to levodopa - No side effects - Takes first dose around 8055-2534, second dose around 4863-7740 Generally does not take the mid-day dose [...] identified. 04/19/2024 by MD Nikki Harrell MD [facility] Neurology [facility] 04-19-2024 History of Present illness Narrative FOLLOW [...] timing. Gave info on PD research at [facility]. HPI Current Issues - No clear benefit to levodopa - No side effects - Takes first dose around 9341-2008, second dose around 0066-5055 Generally does not take the mid-day dose [...] identified. 04/19/2024 by MD Nikki Harrell MD [facility] Neurology documented in this encounter [facility] 04-12-2024 History of Present illness Narrative Patient [...] Abs Lymph 1.00 - 4.00 k/uL 2.41 Bee% % 6.4 Abs Bee <0.87 k/uL 0.68 Eosin% % 1.2 Abs [...] 06/2017 COLONOSCOPY SCREENING 07/14/2017 Dr. Mohan @ [facility]; Ascending colon polyp x1, biopsy- tubular [...] in one month documented in this encounter [facility] 04-12-2024 Note HNO ID: [id number] Author: CHRISTO WARREN MD Service: ? Author [...] Abs Lymph 1.00 - 4.00 k/uL 2.41 Bee% % 6.4 Abs Bee <0.87 k/uL 0.68 Eosin% % 1.2 Abs [...] 06/2017 COLONOSCOPY SCREENING 07/14/2017 Dr. Mohan @ [facility]; Ascending colon polyp x1, biopsy- tubular [...] regular aerobic exer (more content not included)... [facility] 03-10-2024 Telephone encounter Note Prescription Refill Information [...] Jacinda Moy March 10, 2024 11:38 AM [facility] 03-10-2024 Miscellaneous Notes Prescription Refill Information The [...] 2024 11:38 AM documented in this encounter [facility] 02-13-2024 Note [facility] Medical Records Department [address] [place] [address] History Physical Exam 02/13/24 0840 MR#: [id number] Acct: [id number] Name: MARKUS STRATTON Rep #: [id number] : 1955 68 From: Mohan Adhikari MD PCP: Dr. Christo Warren MD Status:[facility] Location: [place] [address] HPI - General General Date of Service: [...] and that his output is now clear. [facility] Medical History (Updated 02/13/24 @ 08:43 [...] Age: 17 At age 17yrs, Treated at [facility] and [facility] Surgical History (Updated 02/12/24 @ 09:28 by Kelly Argueta) History of carpal tunnel surgery of right wrist History of carpal tunnel surgery of left wrist History of colonoscopy Social History (Updated 01/05/24 @ 11:16 by Jessica Abebe) current occupational status: employed current occupation: [employer] Smoking Status: Never smoker substance use type: [...] Disease: No Hx (more content not included)... [facility] 02-09-2024 Telephone encounter Note patient is scheduled at [facility] 02-13-2024 for his colonoscopy. Declined to schedule with [facility] Work Phone: 02-09-2024 Miscellaneous Notes patient is scheduled at [facility] 02-13-2024 for his colonoscopy. Declined to schedule with [facility] documented in this encounter [facility] 01-15-2024 Telephone encounter Note Pt notified that lab orders have been faxed to [facility] Anna Page MA January 15, 2024 11:47 AM [facility] 01-15-2024 Miscellaneous Notes Pt notified that lab orders have been faxed to [facility] Anna Page MA January 15, 2024 11:47 AM done Carlitos is calling Christo Warren MD today requesting order for routine blood work and PSA Please advise and return his call [phone] documented in this encounter [facility] 01-15-2024 Telephone encounter Note done [facility] 01-15-2024 Telephone encounter Note Carlitos is calling Christo Warren MD today requesting order for routine blood work and PSA Please advise and return his call [phone] [facility] 12-01-2023 Telephone encounter Note Spoke with patient. Given message from provider's office. Patient verbalizes understanding. Kobi Dejesus RN [facility] 12-01-2023 Miscellaneous Notes Spoke with patient. Given [...] up to date documented in this encounter [facility] 12-01-2023 Telephone encounter Note Left message to call office. 12/01/2023 1:31 PM Please schedule patient's 6 month follow up with Dr. Warren which is due in March 2024. [facility] 12-01-2023 Telephone encounter Note No medication changes. Follow-up with PCP as scheduled Rachel Martins APRN.CNP [facility] 12-01-2023 Telephone encounter Note BP Lara Serial, [...] Health Maintenance: Reviewed and up to date [facility] 12-01-2023 Note HNO ID: [id number] Author: IAM HUMPHRIES MA Service: ? Author Type: Flour Tester Type: Progress Notes Filed: 12/01/2023 11:43 Note [...] Health Maintenance: Reviewed and up to date [facility] 12-01-2023 History of Present illness Narrative BP [...] up to date documented in this encounter [facility] 11-20-2023 Instructions Rachel Martins, ASSEMBLER [employer] - 11/20/2023 12:15 PM EDT CARE [...] questions or concerns documented in this encounter [facility] 11-20-2023 Note HNO ID: [id number] Author: RACHEL MARTINS APRN.ADRIENNE Service: ? Author Type: Nurse Practitioner Type: Progress Notes Filed: 11/20/2023 13:26 Note Text: CC: Patient presents with: runny nose, cough: Requesting another antibiotic HPI: Markus Stratton is a 68 year old male who presents to the office with above complaint He was seen in [facility] on 11/10 for three day [...] 07/14/2017: COLONOSCOPY SCREENING Comment: Dr. Mohan @ [facility]; Ascending colon polyp x1, biopsy- tubular [...] tenderness or frontal sinus tenderness. Mouth/Throat: Lips: Frederica. Mouth: Mucous membranes are moist. Pharynx: Oropharynx [...] illness - Rec (more content not included)... [facility] 11-20-2023 History of Present illness Narrative CC: Patient presents with: runny nose, cough: Requesting another antibiotic HPI: Markus Stratton is a 68 year old male who presents to the office with above complaint He was seen in [facility] on 11/10 for three day [...] 07/14/2017: COLONOSCOPY SCREENING Comment: Dr. Mohan @ [facility]; Ascending colon polyp x1, biopsy- tubular [...] tenderness or frontal sinus tenderness. Mouth/Throat: Lips: Frederica. Mouth: Mucous membranes are moist. Pharynx: Oropharynx [...] Rachel Martins APRN.ADRIENNE documented in this encounter [facility] 11-20-2023 Telephone encounter Note Scheduled with Rachel. Patient was not happy about having to schedule another appt. Dina Moran MA [facility] 11-20-2023 Miscellaneous Notes Scheduled with Rachel. Patient [...] prescriptions as requested and contact him at [phone] once completed. Kemi Damico RN documented in this encounter [facility] 11-20-2023 Telephone encounter Note Agree. Needs seen if still ill, in office or urgent care(who can see him after hours) [facility] 11-20-2023 Telephone encounter Note Patient calls to request refill on amoxicillin and benzonatate for continued cough and runny nose. Recommended scheduling follow up appointment for re-eval from EC visit. 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 Requesting Dr. Warren send in prescriptions as requested and contact him at [phone] once completed. Kemi Damico RN [facility] 11-17-2023 Instructions Nikki Javier MD - 11/17/2023 [...] the Parkinson's. Consider looking into research at [facility]. documented in this encounter [facility] 11-17-2023 Note HNO ID: [id number] Author: NIKKI JAVIER MD Service: ? Author [...] who presents for (more content not included)... [facility] 11-17-2023 History of Present illness Narrative NEW [...] timing. Gave info on PD research at [facility]. He should return to see me in 4 months. Nikki Javier MD [facility] Neurology documented in this encounter [facility] 11-11-2023 Note HNO ID: [id number] Author: ISRAEL ROQUE PA Service: ? Author Type: Physician Elder Assistant Type: Progress Notes Filed: 11/11/2023 17:49 Note [...] 07/14/2017: COLONOSCOPY SCREENING Comment: Dr. Mohan @ [facility]; Ascending colon polyp x1, biopsy- tubular [...] prompt ER ev (more content not included)... [facility] 11-11-2023 History of Present illness Narrative This note was created using [employer]. Subjective Markus Stratton is a 68 year [...] 07/14/2017: COLONOSCOPY SCREENING Comment: Dr. Mohan @ [facility]; Ascending colon polyp x1, biopsy- tubular [...] evaluation. SHANNAN Horton documented in this encounter [facility] 10-27-2023 Telephone encounter Note ----- Message ----- From: Bonny Bains APRN.CNP Sent: 09/29/2023 4:22 PM EDT To: [place] [facility] Schedule Pool Carlitos is going to call in to schedule (if he decides to move forward with colonoscopy). I didn't place order because I am unsure if he will choose MAC or IV sedation. He will need to hold his 325mg aspirin prior. Bonny Schwartz APRN.SHIRT IRONER SUPERVISOR [facility] 10-27-2023 Miscellaneous Notes ----- Message ----- From: [...] hold his 325mg aspirin prior. Bonny Schwartz APRN.SHIRT IRONER SUPERVISOR Patient to call when ready. Once patient calls order will be entered for correct anesthesia type [place] Assembly Leader Last colonoscopy was done under MAC anesthesia at [facility]. The patient states I want to [...] prior to endoscopy documented in this encounter [facility] 10-06-2023 Note HNO ID: [id number] Author: CHRISTO WARREN MD Service: ? Author [...] 06/2017 COLONOSCOPY SCREENING 07/14/2017 Dr. Mohan @ [facility]; Ascending colon polyp x1, biopsy- tubular [...] - Continue current medications Christo Warren MD [facility] 10-06-2023 History of Present illness Narrative Patient [...] 06/2017 COLONOSCOPY SCREENING 07/14/2017 Dr. Mohan @ [facility]; Ascending colon polyp x1, biopsy- tubular [...] Christo Warren MD documented in this encounter [facility] 10-01-2023 Telephone encounter Note Patient to call when ready. Once patient calls order will be entered for correct anesthesia type [place] Assembly Leader [facility] 10-01-2023 Telephone encounter Note Last colonoscopy was done under MAC anesthesia at [facility]. The patient states I want to make sure I am OUT. He doesn't want to drive to [place]. We discussed the IV sedation here and he would like to think about where he would like to have scope done. He is going to call into the office once he decides. Carlitos is to hold his aspirin prior to endoscopy [facility] 09-29-2023 Nurse Note REVIEW OF SYSTEMS: General: [...] N/A Last Colonoscopy: 2017 Allyson Pollard RN [facility] 09-29-2023 Nurse Note REVIEW OF SYSTEMS: General: [...] Allyson Pollard RN documented in this encounter [facility] 09-26-2023 Note HNO ID: [id number] Author: BONNY BAINS APRN.SHIRT IRONER SUPERVISOR Service: ? Author Type: Nurse Practitioner Type: Progress Notes Filed: 09/29/2023 16:22 Note Text: HISTORY AND PHYSICAL Markus Stratton : 1955 REFERRING PHYSICIAN: Christo Zaragoza [facility] [address] CHIEF COMPLAINT: Patient presents with: Consult: Colonoscopy [...] Last colonoscopy was with Dr. Mohan at [facility] in June 2017 Impression: 1. Cecum: [...] 06/2017 COLONOSCOPY SCREENING 07/14/2017 Dr. Mohan @ [facility]; Ascending colon polyp x1, biopsy- tubular [...] entered by the nurse and reviewed by ga Nursing Notes: Allyson Pollard RN 09/29/2023 3:56 [...] diarrhea, denies los (more content not included)... [facility] 09-26-2023 History of Present illness Narrative HISTORY AND PHYSICAL Markus Stratton : 1955 REFERRING PHYSICIAN: Christo Zaragoza [facility] [address] CHIEF COMPLAINT: Patient presents with: Consult: Colonoscopy [...] Last colonoscopy was with Dr. Mohan at [facility] in June 2017 Impression: 1. Cecum: [...] 06/2017 COLONOSCOPY SCREENING 07/14/2017 Dr. Mohan @ [facility]; Ascending colon polyp x1, biopsy- tubular [...] colonoscopy was done under MAC anesthesia at [facility]. The patient states I want to [...] and edited and updated as necessary. Bonny Banis APRN.ADRIENNE documented in this encounter [facility] 09-08-2023 Telephone encounter Note Pt asking for the 5 mg tab to be sent in to the pharmacy. Pt was asking to go without the consult and do just the colonoscopy. I told him based on history of polyps he had to have the consult first. Anna Page MA September 08, 2023 2:15 PM [facility] 09-08-2023 Miscellaneous Notes Pt asking for the [...] you Gaby Pedersen documented in this encounter [facility] 09-08-2023 Telephone encounter Note ??There is a consult for surgery in the chart and looks like he has an appt already sed up on 09/28 [facility] 09-08-2023 Telephone encounter Note Patient called in and saw Dr. Warren and stated that Dr Warren was suppose to put in an order for a consult to see Dr Mohan. I did not see one in patients chart. Please advice as to what we should do. Thank you Gaby Pedersen [facility] 09-08-2023 Note HNO ID: [id number] Author: CHRISTO WARREN MD Service: ? Author [...] 06/2017 COLONOSCOPY SCREENING 07/14/2017 Dr. Mohan @ [facility]; Ascending colon polyp x1, biopsy- tubular [...] sodium restriction, DA (more content not included)... [facility] 09-08-2023 History of Present illness Narrative Patient [...] 06/2017 COLONOSCOPY SCREENING 07/14/2017 Dr. Mohan @ [facility]; Ascending colon polyp x1, biopsy- tubular [...] Christo Warren MD documented in this encounter [facility] 09-01-2023 Telephone encounter Note Patient asking for a 90 day qty, and also asking for a higher dose as the 0.25 is not working well. Please call with what dosage will be called in. [phone] Patient has been identified by name and date of : Yes Patient phones for refill(s): Requested Prescriptions Pending Prescriptions Disp Refills pramipexole (MIRAPEX) 0.25 mg tablet 30 tablet 5 Sig: Take 1 tablet by mouth daily at bedtime. Date of last office visit in primary care: 02/24/2023 Date of next office visit in primary care: 09/08/2023 Please advise. Thank you. Soledad Butler. [facility] 09-01-2023 Miscellaneous Notes Patient asking for a 90 day qty, and also asking for a higher dose as the 0.25 is not working well. Please call with what dosage will be called in. [phone] Patient has been identified by name and [...] you. Soledad Butler. documented in this encounter [facility] 07-29-2023 Telephone encounter Note Patient notified. Verbalized understanding. [facility] 07-29-2023 Miscellaneous Notes Patient notified. Verbalized understanding. No labs needed. Patient calling to request an order for Labs Please advise. Patient is requesting a return call from our office. Date of next visit with PCP 09-08-23 documented in this encounter [facility] 07-29-2023 Telephone encounter Note No labs needed. [facility] 07-29-2023 Telephone encounter Note Patient calling to request an order for Labs Please advise. Patient is requesting a return call from our office. Date of next visit with PCP 09-08-23 [facility] 07-29-2023 Telephone encounter Note Patient has been identified by name and date of : Patient phones for refill(s): Requested Prescriptions Pending Prescriptions Disp Refills lisinopril 2.5 mg tablet 90 tablet 3 Sig: Take 1 tablet by mouth once daily. Date of last office visit in primary care: 02/24/2023 Date of next office visit in primary care: 09/08/2023 Please advise. Thank you. Jessica Sanchez. [facility] 07-29-2023 Miscellaneous Notes Patient has been identified [...] you. Jessica Sanchez. documented in this encounter [facility] 03-04-2023 Miscellaneous Notes Patient is aware of [...] to make sure. documented in this encounter [facility] 02-28-2023 History of Present illness Narrative Markus Stratton is identified through a medication adherence outreach initiative based on pharmacy claims data from [employer] (insurer) for DAWN medication(s). Patient is reviewed [...] date per call to patient/caregiver Xochitl Brown ([employer]) documented in this encounter [facility] 02-24-2023 History of Present illness Narrative Patient [...] Abs Lymph 1.00 - 4.00 k/uL 2.33 Bee% % 6.7 Abs Bee <0.87 k/uL 0.65 Eosin% % 1.8 Abs [...] 06/2017 COLONOSCOPY SCREENING 07/14/2017 Dr. Mohan @ [facility]; Ascending colon polyp x1, biopsy- tubular [...] Christo Warren MD documented in this encounter [facility] 02-04-2023 Miscellaneous Notes Pt is asking for [...] patient. Cristal Forbes documented in this encounter [facility] 01-24-2023 History of Present illness Narrative Can [...] 2023 11:28 AM documented in this encounter [facility] 01-24-2023 Miscellaneous Notes Addended by: CHRISTO WARREN on: 01/24/2023 04:49 PM Modules accepted: Orders documented in this encounter [facility] 01-21-2023 Miscellaneous Notes Called pt to schedule [...] recheck as well. documented in this encounter [facility] 01-14-2023 Miscellaneous Notes Patient notified. Verbalized understanding. Does have a virtual follow up on Jan 23. We have to start low. Most importantly I need his labs this week. Make sure has follow up Called pt back and he is asking to please have the prescription sent today if possible to [facility]. He says he is not sleeping and [...] too. Please advise documented in this encounter [facility] 01-08-2023 Miscellaneous Notes Patient scheduled for virtual tomorrow at 9:20. Dina Moran That is not something we are permitted to do without evaluation. I would suggest being seen. Can do virtual with me in am while I am at [place] Spoke with patient regarding cancel appt due to michelet call off.. patient states he really doesn't need to be seen just having issues sleeping and just wanted to have provider order sleeping meds. Patient did not want wish to make appt. Please advise. Thank you Betty FORBES documented in this encounter [facility] 01-07-2023 Miscellaneous Notes See triage note. Markus Noemimaria teresa is calling Christo Warren MD today with concern regarding unable to sleep. Patient has not slept for 2 weeks. Patient has been identified by name and birthdate. Duration of symptoms: 2 weeks Person calling: self Call patient at: on cell [phone] (home) [phone] (work) [phone] (cell) Was an appointment scheduled: No Closing statement: Symptom Call: Thank you for calling [facility], your call is very important. A nurse will call in approximately 2-4 hours during business hours. If this is an emergency, please contact 911. Jessica Sanchez documented in this encounter [facility] 01-07-2023 Miscellaneous Notes Patient requesting sleeping pill, has not slept in 2 weeks- only for short periods. Has tried other things (see below). Scheduled 1 st available with pcp tomorrow. Patient declined sooner appt with [facility]. Protocol recommends call pcp w/in 24 hours. [...] OTHER SYMPTOMS: No other symptoms. Protocols used: [id number] documented in this encounter [facility] 09-13-2022 History of Present illness Narrative POPULATION [...] 2022 9:54 AM documented in this encounter [facility] 04-05-2022 Miscellaneous Notes Patient reviewed for [employer] [...] refill if appropriate. Thank you. Kacy Galeano ([employer]) April 05, 2022 10:42 AM documented in this encounter [facility] 04-02-2022 History of Present illness Narrative Markus Stratton is identified through a medication adherence outreach initiative based on pharmacy claims data from [employer] (insurer) for DAWN medication(s). Patient is reviewed [...] PCP to refill if appropriate. Kacy Galeano ([employer]) documented in this encounter [facility] 03-31-2022 History of Present illness Narrative Images [...] 06/2017 COLONOSCOPY SCREENING 07/14/2017 Dr. Mohan @ [facility]; Ascending colon polyp x1, biopsy- tubular [...] Carlos Abebe APRN.CNP documented in this encounter [facility] 12-17-2021 History of Present illness Narrative POPULATION [...] 2021 8:51 AM documented in this encounter [facility] 11-13-2021 Miscellaneous Notes Spoke to pt and [...] Seven Melendez LPN documented in this encounter [facility] 05-01-2020 History of Present illness Narrative Radiology [...] 2020 6:54 PM documented in this encounter [facility] 09-09-2017 History of Past i llness Narrative Problem Noted Date Resolved Date Neck pain 09/09/2017 10/30/2017 Stiffness of left wrist joint 11/28/2015 Pain in right wrist 09/13/2015 10/30/2017 Stress and adjustment reaction 04/07/2014 0 10/30/2017 documented as of this encounter (statuses as of 11/13/2021) [facility]2018 History of Past illness Narrative* Problem Noted Date Resolved Date Neck pain 09/09/2017 10/30/2017 Stiffness of left wrist joint 11/28/2015 Pain in right wrist 09/13/2015 10/30/2017 Stress and adjustment reaction 04/07/2014 0 10/30/2017 documented as of this encounter (statuses as of 12/17/2021) [facility]2018 History of Past illness Narrative* Problem Noted Date Resolved Date Neck pain 09/09/2017 10/30/2017 Stiffness of left wrist joint 11/28/2015 Pain in right wrist 09/13/2015 10/30/2017 Stress and adjustment reaction 04/07/2014 0 10/30/2017 documented as of this encounter (statuses as of 03/31/2022) [facility]2018 History of Past illness Narrative* Problem Noted Date Resolved Date Neck pain 09/09/2017 10/30/2017 Stiffness of left wrist joint 11/28/2015 Pain in right wrist 09/13/2015 10/30/2017 Stress and adjustment reaction 04/07/2014 0 10/30/2017 documented as of this encounter (statuses as of 04/05/2022) [facility]2018 History of Past illness Narrative* Problem Noted Date Resolved Date Neck pain 09/09/2017 10/30/2017 Stiffness of left wrist joint 11/28/2015 Pain in right wrist 09/13/2015 10/30/2017 Stress and adjustment reaction 04/07/2014 0 10/30/2017 documented as of this encounter (statuses as of 04/05/2022) [address]19-2018 History of Past illness Narrative* Problem Noted Date Resolved Date Neck pain 09/09/2017 10/30/2017 Stiffness of left wrist joint 11/28/2015 Pain in right wrist 09/13/2015 10/30/2017 Stress and adjustment reaction 04/07/2014 0 10/30/2017 documented as of this encounter (statuses as of 09/13/2022) [address]19-2018 History of Past illness Narrative* Problem Noted Date Diagnosed Date Resolved Date Neck pain 09/09/2017 10/30/2017 Stiffness of left wrist joint 11/28/2015 10/30/2017 Pain in right wrist 09/13/2015 10/31/19 18 Stress and adjustment reaction 04/07/2014 10/30/2017 documented as of this encounter (statuses as of 01/07/2023) [address]19-2018 History of Past illness Narrative* Problem Noted Date Diagnosed Date Resolved Date Neck pain 09/09/2017 10/30/2017 Stiffness of left wrist joint 11/28/2015 10/30/2017 Pain in right wrist 09/13/2015 10/31/19 18 Stress and adjustment reaction 04/07/2014 10/30/2017 documented as of this encounter (statuses as of 01/08/2023) [address]19-2018 History of Past illness Narrative* Problem Noted Date Diagnosed Date Resolved Date Neck pain 09/09/2017 10/30/2017 Stiffness of left wrist joint 11/28/2015 10/30/2017 Pain in right wrist 09/13/2015 10/31/19 18 Stress and adjustment reaction 04/07/2014 10/30/2017 documented as of this encounter (statuses as of 01/14/2023) [address]2018 History of Past illness Narrative* Problem Noted Date Diagnosed Date Resolved Date Neck pain 09/09/2017 10/30/2017 Stiffness of left wrist joint 11/28/2015 10/30/2017 Pain in right wrist 09/13/2015 10/31/19 18 Stress and adjustment reaction 04/07/2014 10/30/2017 documented as of this encounter (statuses as of 01/25/2023) [address]2018 History of Past illness Narrative* Problem Noted Date Diagnosed Date Resolved Date Neck pain 09/09/2017 10/30/2017 Stiffness of left wrist joint 11/28/2015 10/30/2017 Pain in right wrist 09/13/2015 10/31/19 18 Stress and adjustment reaction 04/07/2014 10/30/2017 documented as of this encounter (statuses as of 02/04/2023) [address]2018 History of Past illness Narrative* Problem Noted Date Diagnosed Date Resolved Date Neck pain 09/09/2017 10/30/2017 Stiffness of left wrist joint 11/28/2015 10/30/2017 Pain in right wrist 09/13/2015 10/31/19 18 Stress and adjustment reaction 04/07/2014 10/30/2017 documented as of this encounter (statuses as of 02/14/2023) [address]2018 History of Past illness Narrative* Problem Noted Date Diagnosed Date Resolved Date Neck pain 09/09/2017 10/30/2017 Stiffness of left wrist joint 11/28/2015 10/30/2017 Pain in right wrist 09/13/2015 10/31/19 18 Stress and adjustment reaction 04/07/2014 10/30/2017 documented as of this encounter (statuses as of 02/25/2023) [address]2018 History of Past illness Narrative* Problem Noted Date Diagnosed Date Resolved Date Neck pain 09/09/2017 10/30/2017 Stiffness of left wrist joint 11/28/2015 10/30/2017 Pain in right wrist 09/13/2015 10/31/19 18 Stress and adjustment reaction 04/07/2014 10/30/2017 documented as of this encounter (statuses as of 02/28/2023) [address]2018 History of Past illness Narrative* Problem Noted Date Diagnosed Date Resolved Date Neck pain 09/09/2017 10/30/2017 Stiffness of left wrist joint 11/28/2015 10/30/2017 Pain in right wrist 09/13/2015 10/31/19 18 Stress and adjustment reaction 04/07/2014 10/30/2017 documented as of this encounter (statuses as of 03/05/2023) [facility] Essential hypertension Unspecified essential hypertension [facility] Diagnosis Tooth ache- Primary [facility] Diagnosis Essential hypertension Unspecified essential hypertension [facility] Diagnosis Screening for colon cancer- Primary Special screening for malignant neoplasms, colon documented in this encounter [facility] note* Diagnosis Hyperbilirubinemia- Primary Jaundice, unspecified, not of Abnormal blood cell count Elevated PSA Elevated prostate specific antigen (PSA) documented in this encounter [facility] note* Diagnosis RLS (restless legs syndrome)- Primary Restless legs syndrome (RLS) Hyperbilirubinemia Jaundice, unspecified, not of Abnormal blood cell count Elevated PSA Elevated prostate specific antigen (PSA) Primary hypertension Unspecified essential hypertension [facility] Diagnosis Hyperbilirubinemia- Primary Jaundice, unspecified, not of [facility] Diagnosis Essential hypertension Unspecified essential hypertension documented in this encounter [facility] note* Diagnosis Essential hypertension- Primary Unspecified essential hypertension Anxiety and depression Dysthymic disorder RLS (restless legs syndrome) Restless legs syndrome (RLS) Screening for prostate cancer Special screening for malignant neoplasm of prostate Elevated PSA Elevated prostate specific antigen (PSA) History of colonic polyps Personal history of colonic polyps Gait disorder Abnormality of gait Bradykinesia Abnormal involuntary movements [facility] Diagnosis Essential hypertension Unspecified essential hypertension documented in this encounter [facility] note* Diagnosis FH: colon cancer in first degree relative <60 years old- Primary History of colonic polyps Personal history of colonic polyps [facility] Diagnosis Essential hypertension- Primary Unspecified essential hypertension [facility] Diagnosis Acute otitis media, right- Primary Unspecified otitis media Acute cough [facility] Diagnosis Acute cough- Primary Essential hypertension Unspecified essential hypertension [facility] Diagnosis Essential hypertension- Primary Unspecified essential hypertension [facility] Diagnosis Parkinson's disease without dyskinesia or fluctuating manifestations (HCC)- Primary [facility] Diagnosis Pain of left calf Pain in limb [facility] Diagnosis Screening for malignant neoplasm of prostate- Primary Elevated PSA Elevated prostate specific antigen (PSA) Essential hypertension Unspecified essential hypertension documented in this encounter [facility] note* Diagnosis RLS (restless legs syndrome) Restless legs syndrome (RLS) documented in this encounter [facility] note* Diagnosis Essential hypertension- Primary Unspecified essential hypertension Anxiety and depression Dysthymic disorder Parkinson's disease, unspecified whether dyskinesia present, unspecified whether manifestations fluctuate (HCC) History of colonic polyps Personal history of colonic polyps documented in this encounter [facility] note* Diagnosis Parkinson's disease without dyskinesia or fluctuating manifestations (HCC)- Primary RLS (restless legs syndrome) Restless legs syndrome (RLS) documented in this encounter [facility] note* Diagnosis Bronchitis- Primary Bronchitis, not specified as acute or chronic documented in this encounter [facility] note* Diagnosis Parkinson's disease without dyskinesia or fluctuating manifestations (HCC)- Primary RLS (restless legs syndrome) Restless legs syndrome (RLS) documented in this encounter [facility] note* Diagnosis Posture abnormality- Primary Abnormal posture Parkinson's disease without dyskinesia or fluctuating manifestations (HCC) documented in this encounter [facility] Reason for Referral Specialty Diagnoses / Procedures Referred By Jesús henson Referred To Contact Urology Diagnoses Elevated PSA Procedures CONSULT TO UROLOGY OFFICE/OUTPATIENT [facility] 60-[place] [address] [place] [address] Referral ID Status Reason Start Date Expiration Date Visits Requested Visits Authorized [id number] Authorized PCP Requested Referral 01/20/2024 1 1 Specialty Diagnoses / Procedures Referred By Jesús henson Referred To Contact Neurology Diagnoses Gait disorder Bradykinesia Procedures CONSULT TO NEUROLOGY OFFICE/OUTPATIENT [facility] 60 MINUTES Christo Warren MD [address] [place] [address] Referral ID Status Reason Start Date Expiration Date Visits Requested Visits Authorized [id number] Pending Review PCP Requested Referral 09/08/2023 09/07/2024 1 1 Specialty Diagnoses / Procedures Referred By Jesús henson Referred To Contact General Surgery / FAMILY MEDICINE Diagnoses History of colonic polyps Procedures CONSULT TO GENERAL SURGERY OFFICE/OUTPATIENT [facility] 60 [place] [address] [place] [id number] [address] [facility] [address] [place] [address] Referral ID Status Reason Start Date Expiration Date Visits Requested Visits Authorized [id number] Authorized PCP Requested Referral 03/24/2023 03/23/2024 1 1 Specialty Diagnoses / Procedures Referred By Contac t Referred To Contact [facility] Diagnoses Parkinson's disease without dyskinesia or fluctuating manifestations (HCC) Procedures CONSULT TO CONCRETE [facility]AT [facility]CC[facility]ERAPY EVAL HIGH COMPLEX 60 MINS Nikki Javier MD [address] [address] [place] [address] [facility] [address] [address] Referral ID Status Reason Start Date Expiration Date Visits Requested Visits Authorized [id number] Pending Review Auto-Generat ed Referral 11/17/2023 11/16/2024 1 1 Specialty Diagnoses / Procedures Referred By Contac t Referred To Contact [facility] Diagnoses Parkinson's disease without dyskinesia or fluctuating manifestations (HCC) Procedures CONSULT TO PHYSICAL THERAPY PHYSICAL THERAPY EVALUATION HIGH COMPLEX 45 MINS Nikki Javier MD [address] [place] [address] [address] Referral ID Status Reason Start Date Expiration Date Visits Requested Visits Authorized [id number] Pending Review Auto-Generat ed Referral 11/17/2023 11/16/2024 [...] or prosecute any alcohol or drug abuse patient.[facility] the event this information is protected by the Federal Confidentiality of Alcohol and Drug Abuse Patient Records regulations: The Federal rules restrict any use of the information to criminally investigate or prosecute any alcohol or drug abuse patient.[facility] the event this information is protected by the Federal Confidentiality of Alcohol and Drug Abuse Patient Records regulations: The Federal rules restrict any use of the information to criminally investigate or prosecute any alcohol or drug abuse patient.[facility] the event this information is protected by the Federal Confidentiality of Alcohol and Drug Abuse Patient Records regulations: The Federal rules restrict any use of the information to criminally investigate or prosecute any alcohol or drug abuse patient.[facility] the event this information is protected by the Federal Confidentiality of Alcohol and Drug Abuse Patient Records regulations: The Federal rules restrict any use of the information to criminally investigate or prosecute any alcohol or drug abuse patient.[facility] the event this information is protected by the Federal Confidentiality of Alcohol and Drug Abuse Patient Records regulations: The Federal rules restrict any use of the information to criminally investigate or prosecute any alcohol or drug abuse patient.[facility] the event this information is protected by the Federal Confidentiality of Alcohol and Drug Abuse Patient Records regulations: The Federal rules restrict any use of the information to criminally investigate or prosecute any alcohol or drug abuse patient.[facility] the event this information is protected by the Federal Confidentiality of Alcohol and Drug Abuse Patient Records regulations: The Federal rules restrict any use of the information to criminally investigate or prosecute any alcohol or drug abuse patient.[facility] the event this information is protected by the Federal Confidentiality of Alcohol and Drug Abuse Patient Records regulations: The Federal rules restrict any use of the information to criminally investigate or prosecute any alcohol or drug abuse patient.[facility] the event this information is protected by the Federal Confidentiality of Alcohol and Drug Abuse Patient Records regulations: The Federal rules restrict any use of the information to criminally investigate or prosecute any alcohol or drug abuse patient.[facility] the event this information is protected by the Federal Confidentiality of Alcohol and Drug Abuse Patient Records regulations: The Federal rules restrict any use of the information to criminally investigate or prosecute any alcohol or drug abuse patient.[facility] the event this information is protected by the Federal Confidentiality of Alcohol and Drug Abuse Patient Records regulations: The Federal rules restrict any use of the information to criminally investigate or prosecute any alcohol or drug abuse patient.[facility] the event this information is protected by the Federal Confidentiality of Alcohol and Drug Abuse Patient Records regulations: The Federal rules restrict any use of the information to criminally investigate or prosecute any alcohol or drug abuse patient.[facility] the event this information is protected by the Federal Confidentiality of Alcohol and Drug Abuse Patient Records regulations: The Federal rules restrict any use of the information to criminally investigate or prosecute any alcohol or drug abuse patient.[facility] the event this information is protected by the Federal Confidentiality of Alcohol and Drug Abuse Patient Records regulations: The Federal rules restrict any use of the information to criminally investigate or prosecute any alcohol or drug abuse patient.[facility] the event this information is protected by the Federal Confidentiality of Alcohol and Drug Abuse Patient Records regulations: The Federal rules restrict any use of the information to criminally investigate or prosecute any alcohol or drug abuse patient.[facility] the event this information is protected by the Federal Confidentiality of Alcohol and Drug Abuse Patient Records regulations: The Federal rules restrict any use of the information to criminally investigate or prosecute any alcohol or drug abuse patient.[facility] the event this information is protected by the Federal Confidentiality of Alcohol and Drug Abuse Patient Records regulations: The Federal rules restrict any use of the information to criminally investigate or prosecute any alcohol or drug abuse patient.[facility] the event this information is protected by the Federal Confidentiality of Alcohol and Drug Abuse Patient Records regulations: The Federal rules restrict any use of the information to criminally investigate or prosecute any alcohol or drug abuse patient.[facility] CenterIn the event this information is protected by the Federal Confidentiality of Alcohol and Drug Abuse Patient Records regulations: The Federal rules restrict any use of the information to criminally investigate or prosecute any alcohol or drug abuse patient.[facility] CenterIn the event this information is protected by the Federal Confidentiality of Alcohol and Drug Abuse Patient Records regulations: The Federal rules restrict any use of the information to criminally investigate or prosecute any alcohol or drug abuse patient.[facility] CenterIn the event this information is protected by the Federal Confidentiality of Alcohol and Drug Abuse Patient Records regulations: The Federal rules restrict any use of the information to criminally investigate or prosecute any alcohol or drug abuse patient.[facility] CenterIn the event this information is protected by the Federal Confidentiality of Alcohol and Drug Abuse Patient Records regulations: The Federal rules restrict any use of the information to criminally investigate or prosecute any alcohol or drug abuse patient.[facility] CenterIn the event this information is protected by the Federal Confidentiality of Alcohol and Drug Abuse Patient Records regulations: The Federal rules restrict any use of the information to criminally investigate or prosecute any alcohol or drug abuse patient.[facility] CenterIn the event this information is protected by the Federal Confidentiality of Alcohol and Drug Abuse Patient Records regulations: The Federal rules restrict any use of the information to criminally investigate or prosecute any alcohol or drug abuse patient.[facility] CenterIn the event this information is protected by the Federal Confidentiality of Alcohol and Drug Abuse Patient Records regulations: The Federal rules restrict any use of the information to criminally investigate or prosecute any alcohol or drug abuse patient.[facility] CenterIn the event this information is protected by the Federal Confidentiality of Alcohol and Drug Abuse Patient Records regulations: The Federal rules restrict any use of the information to criminally investigate or prosecute any alcohol or drug abuse patient.[facility] CenterIn the event this information is protected by the Federal Confidentiality of Alcohol and Drug Abuse Patient Records regulations: The Federal rules restrict any use of the information to criminally investigate or prosecute any alcohol or drug abuse patient.[facility] CenterIn the event this information is protected by the Federal Confidentiality of Alcohol and Drug Abuse Patient Records regulations: The Federal rules restrict any use of the information to criminally investigate or prosecute any alcohol or drug abuse patient.[facility] CenterIn the event this information is protected by the Federal Confidentiality of Alcohol and Drug Abuse Patient Records regulations: The Federal rules restrict any use of the information to criminally investigate or prosecute any alcohol or drug abuse patient.[facility] CenterIn the event this information is protected by the Federal Confidentiality of Alcohol and Drug Abuse Patient Records regulations: The Federal rules restrict any use of the information to criminally investigate or prosecute any alcohol or drug abuse patient.[facility] CenterIn the event this information is protected by the Federal Confidentiality of Alcohol and Drug Abuse Patient Records regulations: The Federal rules restrict any use of the information to criminally investigate or prosecute any alcohol or drug abuse patient.[facility] CenterIn the event this information is protected by the Federal Confidentiality of Alcohol and Drug Abuse Patient Records regulations: The Federal rules restrict any use of the information to criminally investigate or prosecute any alcohol or drug abuse patient.[facility] CenterIn the event this information is protected by the Federal Confidentiality of Alcohol and Drug Abuse Patient Records regulations: The Federal rules restrict any use of the information to criminally investigate or prosecute any alcohol or drug abuse patient.[facility] CenterIn the event this information is protected by the Federal Confidentiality of Alcohol and Drug Abuse Patient Records regulations: The Federal rules restrict any use of the information to criminally investigate or prosecute any alcohol or drug abuse patient.[facility] CenterIn the event this information is protected by the Federal Confidentiality of Alcohol and Drug Abuse Patient Records regulations: The Federal rules restrict any use of the information to criminally investigate or prosecute any alcohol or drug abuse patient.[facility] CenterIn the event this information is protected by the Federal Confidentiality of Alcohol and Drug Abuse Patient Records regulations: The Federal rules restrict any use of the information to criminally investigate or prosecute any alcohol or drug abuse patient.[facility] CenterIn the event this information is protected by the Federal Confidentiality of Alcohol and Drug Abuse Patient Records regulations: The Federal rules restrict any use of the information to criminally investigate or prosecute any alcohol or drug abuse patient.[facility] CenterIn the event this information is protected by [...] or prosecute any alcohol or drug abuse patient.[facility] CenterIn the event this information is protected by the Federal Confidentiality of Alcohol and Drug Abuse Patient Records regulations: The Federal rules restrict any use of the information to criminally investigate or prosecute any alcohol or drug abuse patient.[facility] CenterIn the event this information is protected by the Federal Confidentiality of Alcohol and Drug Abuse Patient Records regulations: The Federal rules restrict any use of the information to criminally investigate or prosecute any alcohol or drug abuse patient.[facility] CenterIn the event this information is protected by the Federal Confidentiality of Alcohol and Drug Abuse Patient Records regulations: The Federal rules restrict any use of the information to criminally investigate or prosecute any alcohol or drug abuse patient.[facility] CenterIn the event this information is protected by the Federal Confidentiality of Alcohol and Drug Abuse Patient Records regulations: The Federal rules restrict any use of the information to criminally investigate or prosecute any alcohol or drug abuse patient.[facility] Reason for Visit (unrecogniz ed section and [...] polyps Procedures CONSULT TO GENERAL SURGERY OFFICE/OUTPATIENT [facility] MDM 60 MINUTES Christo Warren MD [address] [place] [address] [facility] [address] [place] [address] Referral ID Status Reason Start Date Expiration Date V isits Requested Visits Authorized [id number] Closed PCP Requested Referral 03/24/2023 03/23/2024 1 [...] disorder Bradykinesia Procedures CONSULT TO NEUROLOGY OFFICE/OUTPATIENT [facility] MDM 60 MINUTES Christo Warren MD [address] [place] [address] [facility] [address] [place] [address] Referral ID Status Reason Start Date Expiration Date V isits Requested Visits Authorized [id number] Closed PCP Requested Referral 10/22/2023 03/23/2024 1 [...] Phone: tel: fax: Mis Montgomery, PT [address] [place] [address] Phone: tel: Referral ID Status Reason Start Date Expiration Date Visits Requested Visits Authorized [id number] Authorized Auto-Generat ed Referral 08/05/2024 03/23/2025 99 99 Reason Onset Date Comments Population Health Navigation Outreach 09/08/2024 [employer] [facility] Care Teams (unrecognized sec tion and content) Heat Sealing Machine Operator Relationship Specialty Start Date End Date Christo Warren MD [address] [place], [place] [id number] PCP - General Family Practice 8/9/18 Heat Sealing Machine Operator Relationship Specialty Start Date End Date Christo Warren MD [address] [facility] [place] [address] PCP - General Family Medicine 10/30/17 Heat Sealing Machine Operator Relationship Specialty Start Date End Date Christo Warren MD [address] [facility] [place] [address] PCP - General Family Medicine 10/30/17 Heat Sealing Machine Operator Relationship Specialty Start Date End Date Christo Warren MD [address] [facility] [place] [address] PCP - General Family Medicine 10/30/17 Heat Sealing Machine Operator Relationship Specialty Start Date End Date Christo Warren MD [address] [facility] [place] [address] PCP - General Family Medicine 10/30/17 Heat Sealing Machine Operator Relationship Specialty Start Date End Date Christo Warren MD [address] [facility] [place] [address] PCP - General Family Medicine 10/30/17 Heat Sealing Machine Operator Relationship Specialty Start Date End Date Christo Warren MD [address] [facility] [place] [address] PCP - General Family Medicine 10/30/17 Heat Sealing Machine Operator Relationship Specialty Start Date End Date Christo Warren MD [address] [facility] [place] [address] PCP - General Family Medicine 10/30/17 Heat Sealing Machine Operator Relationship Specialty Start Date End Date Christo Warren MD [address] [facility] [place] [address] PCP - General Family Medicine 10/30/17 Heat Sealing Machine Operator Relationship Specialty Start Date End Date Christo Warren MD [address] [facility] [place] [address] PCP - General Family Medicine 10/30/17 Heat Sealing Machine Operator Relationship Specialty Start Date End Date Christo Warren MD [address] [facility] [place] [address] PCP - General Family Medicine 10/30/17 Heat Sealing Machine Operator Relationship Specialty Start Date End Date Christo Warren MD [address] [facility] [place] [address] PCP - General Family Medicine 10/30/17 Heat Sealing Machine Operator Relationship Specialty Start Date End Date Christo Warren MD [address] [facility] [place] [address] PCP - General Family Medicine 10/30/17 Heat Sealing Machine Operator Relationship Specialty Start Date End Date Christo Warren MD [address] [facility] [place] [address] PCP - General Family Medicine 10/30/17 Heat Sealing Machine Operator Relationship Specialty Start Date End Date Christo Warren MD [address] [facility] [place] [address] PCP - General Family Medicine 10/30/17 Heat Sealing Machine Operator Relationship Specialty Start Date End Date Christo Warren MD [address] [facility] [place] [address] PCP - General Family Medicine 10/30/17 Heat Sealing Machine Operator Relationship Specialty Start Date End Date Christo Warren MD [address] [facility] [place] [address] PCP - General Family Medicine 10/30/17 Heat Sealing Machine Operator Relationship Specialty Start Date End Date Christo Warren MD [address] [facility] [place], [place] [address] PCP - General Family Medicine 10/30/17 Heat Sealing Machine Operator Relationship Specialty Start Date End Date Christo Warren MD [address] [facility] [place], [place] [address] PCP - General Family Medicine 10/30/17 Heat Sealing Machine Operator Relationship Specialty Start Date End Date Christo Warren MD [address] [facility] [place] [address] PCP - General Family Medicine 10/30/17 Heat Sealing Machine Operator Relationship Specialty Start Date End Date Christo Warren MD [address] [facility] [place] [address] PCP - General Family Medicine 10/30/17 Hermelinda Goldman APRN.SHIRT IRONER SUPERVISOR [address] [facility] [place] [address] Service Dog Trainer Family Medicine 03/01/24 Palak Jimenez APRN.SHIRT IRONER SUPERVISOR [address] [facility] [place] [address] Service Dog Trainer Family Medicine 03/01/24 Heat Sealing Machine Operator Relationship Specialty Start Date End Date Christo Warren MD [address] [facility] [place] [address] PCP - General Family Medicine 10/30/17 Hermelinda Goldman APRN.SHIRT IRONER SUPERVISOR [address] [facility] [place] [address] Service Dog Trainer Family Medicine 03/01/24 Palak Jimenez APRN.SHIRT IRONER SUPERVISOR [address] [facility] [place] [address] Service Dog Trainer Family Medicine 03/01/24 Heat Sealing Machine Operator Relationship Specialty Start Date End Date Christo Warren MD [address] [facility] [place] [address] PCP - General Family Medicine 10/30/17 Hermelinda Goldman, ASSEMBLER CONVERTIBLE TOP.SHIRT IRONER SUPERVISOR [address] [facility] [place] [address] Service Dog Trainer Family Medicine 03/01/24 Palak Jimenez APRN.SHIRT IRONER SUPERVISOR [address] [facility] [place] [address] [facility] 03/01/24 Heat Sealing Machine Operator Relationship Specialty Start Date End Date Christo Warren MD [address] [facility] [place] [address] PCP - General Family Medicine 10/30/17 Hermelinda Goldman ASSEMBLER CONVERTIBLE TOP.SHIRT IRONER SUPERVISOR [address] [facility] [place] [address] Service Dog Trainer Family Medicine 03/01/24 Palak Jimenez ASSEMBLER CONVERTIBLE TOP.SHIRT IRONER SUPERVISOR [address] [facility] [place] [address] Service Dog Trainer Family Medicine 03/01/24 Heat Sealing Machine Operator Relationship Specialty Start Date End Date Christo Warren MD [address] [facility] [place] [address] PCP - General Family Medicine 10/30/17 Hermelinda Goldman, ASSEMBLER CONVERTIBLE TOP.SHIRT IRONER SUPERVISOR [address] [facility] [place] [address] Service Dog Trainer Family [facility] 03/01/24 Palak Jimenez APRN.SHIRT IRONER SUPERVISOR [address] [place] [address] [facility] 03/01/24 Heat Sealing Machine Operator Relationship Specialty Start Date End Date Christo Warren MD [address] [place] [address] PCP - General Family Medicine 10/30/17 Hermelinda Goldman APRN.SHIRT IRONER SUPERVISOR [address] [place] [address] [facility] 03/01/24 Palak Jimenez APRN.SHIRT IRONER SUPERVISOR [address] [place] [address] [facility] 03/01/24 Heat Sealing Machine Operator Relationship Specialty Start Date End Date Christo Warren MD [address] [place] [address] PCP - General Family Medicine 10/30/17 Hermelinda Goldman APRN.SHIRT IRONER SUPERVISOR [address] [place] [address] [facility] 03/01/24 Palak Jimenez ASSEMBLER CONVERTIBLE TOP.SHIRT IRONER SUPERVISOR [address] [place] [address] [facility] 03/01/24 Heat Sealing Machine Operator Relationship Specialty Start Date End Date Christo Warren MD [address] [facility] [place] [address] PCP - General Family Medicine 10/30/17 Hermelinda Goldman APRN.SHIRT IRONER SUPERVISOR [address] [place], [place] [address] [facility] 03/01/24 Palak Jimenez APRN.SHIRT IRONER SUPERVISOR [address] [place], [place] [address] [facility] 03/01/24 (unrecognized sect ion and content) No Status Records FoundNo Status Records FoundNo Status Records FoundNo Status Records Found INFORMATION SOURCE (unrecogn ized section and content) DATE CREATED AUTHOR 03/16/2024 [facility] DATE CREATED AUTHOR AUTHOR'S ORGANIZ ATION 05/03/2024 [facility] DATE CREATED AUTHOR AUTHOR'S ORGANIZ ATION 08/21/2024 [facility] DATE CREATED AUTHOR AUTHOR'S ORGANIZ ATION 09/08/2024 [facility] FOR RECORDS PERTAINING TO PATIENTS WHO [...] BE BASED ON THE PRIMARY CLINICAL RECORDS. [employer] provides no warranty or guarantee of the accuracy or completeness of information in this document.
--- NOTE | 2024-09-10 02:39 | PCM.RX.CS ---
Consult Antibiotic Management Pharmacy has been consulted to manage selected antibiotic: Vancomycin Type of Intervention Type of Consult: New start Suspected Infection Suspected Infection: Sepsis Labs Labs: Sodium 135 mmol/L (133-145) 09/09/24 22:06 Potassium 4.0 mmol/L (3.3-5.1) 09/09/24 22:06 Chloride 100 mmol/L (98-108) 09/09/24 22:06 Carbon Dioxide 20.0 mmol/L (21.0-32.0) L 09/09/24 22:06 Anion Gap 15 (5-15) 09/09/24 22:06 BUN 13 mg/dL (4-19) 09/09/24 22:06 Creatinine 1.36 mg/dL (0.70-1.20) H 09/09/24 22:06 Est GFR (MDRD) Non-Af 56 (>60) L 09/09/24 22:06 BUN/Creatinine Ratio 9.4 RATIO (10-20) L 09/09/24 22:06 Glucose 139 mg/dL (70-99) H 09/09/24 22:06 Microbiology Microbiology: Microbiology 09/09/24 23:47 Mucosa - Nose SARS-CoV-2, Influenza & RSV (PCR) - Final Dosing Weight Weight used for dosin kg Estimated Creatinine Clearance Estimated Creatinine Clearance: 50 Goal Trough Goal Trough: 15-20 mcg/mL Pharmacy Plan for Drug Dosing Pharmacy Plan for Drug Dosing: Pharmacy Service will continue to monitor and adjust dosing as required. Follow-Up Labs Follow-Up Labs: Trough: Vancomycin Date/Time Labs Ordered Labs to be done on [date and time ordered]: 09/11/24 @1138
[2024-09-10] MEDS: Gabapentin 600 MG Tablet PO ×2 (02:46→21:00)
[2024-09-10] MEDS: Pramipexole Di-HCl 0.5 MG Tablet PO ×2 (02:46→21:01)
[2024-09-10] MEDS: ALPRAZolam 0.5 MG Tablet PO (03:27)
[2024-09-10] MEDS: 0.9% Normal Saline (1000mL) 1,000 ML 125 ML IV (03:31)
[2024-09-10 03:35] LABS: Lactic Acid 1.5 mmol/L (0.0-2.0)
[2024-09-10 03:49] LABS: Vitamin B12 505 pg/mL (180-914)
[2024-09-10 05:09] LABS: Cholesterol 142 mg/dL (<=200); High Density Lipoprotein 46 mg/dL; Low Density Lipoprotein Calc. 82 mg/dL; Triglycerides 72 mg/dL; Very Low Density Lipoprotein 14 mg/dL (5-40)
[2024-09-10 05:10] LABS: Hemoglobin A1c 6.1 % (<=5.6)
[2024-09-10] MEDS: Carbidopa/Levodopa 10/100 Tablet PO ×2 (06:20→10:37)
[2024-09-10] MEDS: Piperacil/Tazobactam 3.375 GM in 0.9% Normal Saline (50mL MB+) 50 ML IV ×3 (06:20→21:01)
[2024-09-10] MEDS: Zinc Sulfate 50 mg zinc (220 mg) ORAL capsule PO (09:08)
[2024-09-10] MEDS: Lactobacillis Acidophilus 1 CAP PO ×4 (09:08→21:01)
[2024-09-10] MEDS: Ascorbic Acid 500 MG Tablet 1000 MG PO ×2 (09:08→16:38)
[2024-09-10] MEDS: Cholecalciferol (Vit D3) 125 MCG CAPSULE (5,000 UNITS) PO (09:09)
[2024-09-10] MEDS: Acetaminophen 325 MG Tablet 650 MG PO ×2 (09:09→16:37)
[2024-09-10] MEDS: Vancomycin IV 1,000 MG/200 ML BAG 200 MG IV (11:38)
--- NOTE | 2024-09-10 14:10 | CASEMGMT ---
GEOVANNA ESPARZA Assessment: Face to Face with pt for initial transition planning/care coordination assessment. GEOVANNA ESPARZA introduced self and role at [facility], pt voices understanding and consents to assessment. Pt is A&O x4 and answers all questions appropriately at this time. Pt sitting up in chair in no distress with sig other and friend at bedside. Pt agreeable to assessment with friends present. Care providers, pharmacy, and demographics verified/updated. Admitting Dx: UTI sepsis AMS and parkinson's disease Strata Score: 1 PCP:Madonna Specialists:Raulito neuro at [facility] Preferred Pharmacy: [facility] Insurance: [facility] Prescription Benefit: yes LNOK: Anny Clemens, dtr; Manohar Segovia, sig other Living Arrangements: Pt lives alone in a single story home with 4 steps to enter. Pt reports he is I in ADL/IADLs and denies concerns at home. 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 Pt reports he is moving into his sig other's home next week which is a single story condo with no steps to enter. Transportation: Pt drives self and denies concerns with transportation. DME:none HHC/SNF:Denies hx of Pt states no concerns with going home at time of dc. Pt wants to dc this date. No therapy recommended from evals today. Pt states no further concerns/needs. CM to follow. Advised pt to ask CM if any further questions/concerns/needs arise, voices understanding. Pt Goal: Home Plan: Home Leah [place] CM
--- NOTE | 2024-09-10 15:47 | PCM.PN.HOSP ---
Reason for Visit Reason for Visit: Diagnoses Sepsis, unspecified organism (09/10/24) Elevated white blood cell count, unspecified (09/10/24) Obesity, class 1 (09/10/24) Parkinson's disease with dyskinesia, with fluctuations (09/10/24) Metabolic encephalopathy (09/10/24) Acute cystitis with hematuria (09/10/24) Fever, unspecified (09/10/24) Weakness (09/10/24) Severe sepsis without septic shock (09/10/24) Other specified abnormal findings of blood chemistry (09/10/24) Subjective Subjective Anxious to go home. Objective Data Objective Data Vital Signs: Vital Signs Temp Pulse Resp BP Pulse Ox O2 Del Method 38.4 C H 94 28 H 157/102 H 92 Room Air 09/10/24 09:00 09/10/24 09:00 09/10/24 09:00 09/10/24 09:00 09/10/24 09:00 09/10/24 14:37 Oxygen Delivery Method Room Air Weight: 91.6 kg Body Mass Index (BMI) 34.7 Intake & Output: Intake and Output for Last 24 Hours 09/08/24 09/09/24 09/10/24 23:59 23:59 23:59 Intake Total 50 / 50 4885 / 4885 Output Total 750 / 750 Balance 50 / 50 4135 / 4135 Lab / Micro Data 09/09/24 22:06 09/09/24 22:06 Labs: Laboratory Results - last 24 hr 09/09/24 22:06: WBC 12.0 H, RBC 5.04, Hgb 14.6, Hct 42.7, MCV 84.7, MCH 29.0, MCHC 34.2, RDW Std Deviation 40.3, RDW Coeff of Earl 13.1, Plt Count 198, MPV 10.7, Immature Gran % (Auto) 0.500, Neut % (Auto) 85.0 H, Lymph % (Auto) 5.7 L, Dixie % (Auto) 8.3, Eos % (Auto) 0.0, Baso % (Auto) 0.5, Absolute Neuts (auto) 10.2 H, Absolute Lymphs (auto) 0.68 L, Nucleated RBC % 0, PT 14.6, INR 1.1, Sodium 135, Potassium 4.0, Chloride 100, Carbon Dioxide 20.0 L, Anion Gap 15, BUN 13, Creatinine 1.36 H, Estim Creat Clear Calc 50.34, Est GFR (MDRD) Non-Af 56 L, BUN/Creatinine Ratio 9.4 L, Glucose 139 H, Calcium 9.2, Total Bilirubin 1.85 H, Direct Bilirubin 0.70 H, AST 37, ALT 39, Alkaline Phosphatase 74, Total Protein 7.2, Albumin 4.2, Globulin 3.0, Procalcitonin 0.94 H 09/09/24 23:15: Lactic Acid 1.7 09/09/24 23:19: Urine Color Yellow, Urine Clarity Sl. Cloudy, Urine pH 6.0, Ur Specific Odin 1.015, Urine Protein 500 H, Urine Glucose (UA) Normal, Urine Ketones 50 H, Urine Occult Blood 250 H, Urine Nitrite Negative, Urine Bilirubin Negative, Urine Urobilinogen 1 H, Ur Leukocyte Esterase 25 H, Urine RBC 50-100 SEEN, Urine WBC 5-10 SEEN, Ur Squamous Epith Cells 0 SEEN, Urine Bacteria 1+, Urine Mucus 1+ 09/09/24 23:38: Ammonia 16.2 09/10/24 02:35: Hemoglobin A1c 6.1 H, Lactic Acid 1.5, Triglycerides 72, Cholesterol 142, LDL Cholesterol, Calc 82, VLDL Cholesterol 14, HDL Cholesterol 46, Cholesterol/HDL Ratio 3.10, Vitamin B12 505, TSH 1.130 Micro: Microbiology 09/09/24 23:47 Mucosa - Nose SARS-CoV-2, Influenza & RSV (PCR) - Final Radiography Diagnostic Testing: Radiology Impression Chest X-Ray 09/09/24 23:25 IMPRESSION: Cardiomegaly. No acute process. Reading Location: [place] [address] Chest/Abdomen/Pelvis CTA 09/10/24 01:07 IMPRESSION: Fat containing right inguinal hernia without incarceration. Hepatomegaly with hepatic steatosis. Mild prostatomegaly. Right renal simple cyst measuring 3.5 cm. Mild diffuse spondylosis. Reading Location: [place] [address] Physical Exam Const alert and no apparent distress HEENT head/scalp atraumatic and moist oral mucous membranes Resp normal respiratory effort, no retractions, no use of accessory muscles and clear to auscultation bilaterally Cardio regular rate, regular rhythm, S1 normal heart sound and S2 normal heart sound GI normal to inspection, nondistended, normoactive bowel sounds, soft to palpation, non-tender and non-distended Extremity normal to inspection Assessment & Plan Assessment/Plan (1) Sepsis: QUALIFIERS: Sepsis type: sepsis due to unspecified organism Sepsis acute organ dysfunction status: with acute organ dysfunction Severe sepsis acute organ dysfunction type: encephalopathy Severe sepsis shock status: without septic shock Qualified Code(s): A41.9 - Sepsis, unspecified organism; R65.20 - Severe sepsis without septic shock; G93.41 - Metabolic encephalopathy PLAN: POA qSOFA 2 (encephalopathy, RR >22) 2/2 UTI Monitor UCx, BCx pending (2) UTI (urinary tract infection): PLAN: follow up cultures continue pip/tazo DC vancomycin (3) Acute metabolic encephalopathy: PLAN: 2/2 sepsis, UTI in patient with known Parkinson's disease avoid potentiating medications PLAN: Plan VTE prophylaxis: LMWH Charges/Coding Visit Charges Inpatient E&M: 62137 Subs Hosp L2
[2024-09-10] MEDS: Gabapentin 300 MG Capsule PO (16:37)
[2024-09-11] VITALS (10 sets, daily range): BP systolic 139–146; BP diastolic 75–85; PULSE 54–86; RESP 16–18; TEMP 36.4–38.8; O2SAT 95–98
[2024-09-11] MEDS: Acetaminophen 325 MG Tablet 650 MG PO (03:56)
[2024-09-11] MEDS: Piperacil/Tazobactam 3.375 GM in 0.9% Normal Saline (50mL MB+) 50 ML IV ×3 (05:57→20:09)
--- NOTE | 2024-09-11 08:13 | PCM.PN.HOSP ---
Reason for Visit Reason for Visit: Diagnoses Sepsis, unspecified organism (09/10/24) Elevated white blood cell count, unspecified (09/10/24) Obesity, class 1 (09/10/24) Parkinson's disease with dyskinesia, with fluctuations (09/10/24) Metabolic encephalopathy (09/10/24) Acute cystitis with hematuria (09/10/24) Urinary tract infection, site not specified (09/10/24) Fever, unspecified (09/10/24) Weakness (09/10/24) Severe sepsis without septic shock (09/10/24) Other specified abnormal findings of blood chemistry (09/10/24) Subjective Subjective Still with headache. Complaining of discomfort in right arm. Objective Data Objective Data Vital Signs: Vital Signs Temp Pulse Resp BP Pulse Ox O2 Del Method 37.2 C 86 18 146/75 H 95 Room Air 09/11/24 05:57 09/11/24 04:04 09/11/24 04:04 09/11/24 04:04 09/11/24 04:20 09/11/24 04:20 Oxygen Delivery Method Room Air Weight: 91.6 kg Body Mass Index (BMI) 34.7 Intake & Output: Intake and Output for Last 24 Hours 09/09/24 09/10/24 09/11/24 23:59 23:59 23:59 Intake Total 50 / 50 5295 / 5295 50 / 50 Output Total 750 / 750 Balance 50 / 50 4545 / 4545 50 / 50 Lab / Micro Data 09/09/24 22:06 09/09/24 22:06 Micro: Microbiology 09/09/24 23:22 Blood Culture (Wb) - Anticubital Left Blood Culture - Preliminary 09/09/24 23:47 Mucosa - Nose SARS-CoV-2, Influenza & RSV (PCR) - Final Physical Exam Const alert and no apparent distress Constitutional Narrative: up in chair. non-toxic. HEENT head/scalp atraumatic and moist oral mucous membranes Resp normal respiratory effort, no retractions, no use of accessory muscles and clear to auscultation bilaterally Cardio regular rate, regular rhythm, S1 normal heart sound and S2 normal heart sound GI normal to inspection, nondistended, normoactive bowel sounds, soft to palpation, non-tender and non-distended Extremity Extremity Narrative: induration right antecubital arm. Assessment & Plan Assessment/Plan (1) Sepsis: QUALIFIERS: Sepsis acute organ dysfunction status: with acute organ dysfunction Sepsis type: sepsis due to unspecified organism Severe sepsis acute organ dysfunction type: encephalopathy Severe sepsis shock status: without septic shock Qualified Code(s): A41.9 - Sepsis, unspecified organism; R65.20 - Severe sepsis without septic shock; G93.41 - Metabolic encephalopathy PLAN: POA qSOFA 2 (encephalopathy, RR >22) 2/2 UTI +/- cellulitis +/- bacteremia. Monitor UCx, BCx pending (2) UTI (urinary tract infection): PLAN: follow up cultures continue pip/tazo DC vancomycin (3) Acute metabolic encephalopathy: PLAN: 2/2 sepsis, UTI in patient with known Parkinson's disease avoid potentiating medications (4) Bacteremia: PLAN: 1 of 2 cultures positive for GPC on the . BCx on the pending. Will add vancomycin. (5) Cellulitis: PLAN: cellulitis v SVT in RUE. vancomycin Check duplex. PLAN: Plan VTE prophylaxis: LMWH Charges/Coding Visit Charges Inpatient E&M: 48229 Subs Hosp L2
[2024-09-11] MEDS: 0.9% Saline Lock 10 ML Syringe IV (10:47)
[2024-09-11] MEDS: Cholecalciferol (Vit D3) 125 MCG CAPSULE (5,000 UNITS) PO (10:48)
[2024-09-11] MEDS: Ascorbic Acid 500 MG Tablet 1000 MG PO ×2 (10:48→16:42)
[2024-09-11] MEDS: Carbidopa/Levodopa 10/100 Tablet PO (10:48)
[2024-09-11] MEDS: Ketorolac 15 MG/ML Vial IV (10:48)
[2024-09-11] MEDS: Lactobacillis Acidophilus 1 CAP PO ×4 (10:49→20:54)
[2024-09-11] MEDS: Vancomycin HCl 1,250 MG in 0.9% Normal Saline (250mL Bag) 250 ML 167 MG IV (12:05)
[2024-09-11 12:46] LABS: Anion Gap 11 (5-15); BUN 14 mg/dL (4-19); Calcium,Total 8.4 mg/dL (7.6-11.0); Carbon Dioxide 21.3 mmol/L (21.0-32.0); Chloride 107 mmol/L (98-108); EST Glomerular Filtration Rate 54 (>60); Glucose 115 mg/dL (70-99); Potassium 3.6 mmol/L (3.3-5.1); Sodium Level 139 mmol/L (133-145)
--- NOTE | 2024-09-11 13:17 | PCM.RX.CS ---
Consult Antibiotic Management Pharmacy has been consulted to manage selected antibiotic: Vancomycin Type of Intervention Type of Consult: New start Suspected Infection Suspected Infection: Bacteremia Labs Labs: Sodium 139 mmol/L (133-145) 09/11/24 11:40 Potassium 3.6 mmol/L (3.3-5.1) 09/11/24 11:40 Chloride 107 mmol/L (98-108) 09/11/24 11:40 Carbon Dioxide 21.3 mmol/L (21.0-32.0) 09/11/24 11:40 Anion Gap 11 (5-15) 09/11/24 11:40 BUN 14 mg/dL (4-19) 09/11/24 11:40 Creatinine 1.40 mg/dL (0.70-1.20) H 09/11/24 11:40 Est GFR (MDRD) Non-Af 54 (>60) L 09/11/24 11:40 BUN/Creatinine Ratio 10.0 RATIO (10-20) 09/11/24 11:40 Glucose 115 mg/dL (70-99) H 09/11/24 11:40 Microbiology Microbiology: Microbiology 09/09/24 23:22 Blood Culture (Wb) - Anticubital Left Blood Culture - Preliminary 09/09/24 23:47 Mucosa - Nose SARS-CoV-2, Influenza & RSV (PCR) - Final Pharmacy Plan for Drug Dosing Pharmacy Plan for Drug Dosing: NEW START IV VANCOMYCIN Consulting Physician: Nba Indication: bacteremia Goal Trough: 15-20 mg/dL SrCr: 1.4 mg/dL CrCl: 49.4 mL/min Comments: Patient was previously on vancomycin this admission. Last dose was 1000mg 09/10/24 @ 1138. Did not give full loading dose for initial dose as the last dose was roughly 24 hours ago and renal function is not great (49mL/min, SCr 1.4mg/dL). Did give initial standard dose of 1250mg 09/11 @ 1205. Vancomycin Dose: Will start 750mg Q12 (09/12 @ 0000) and get a trough prior to 4th dose of new regimen. Pending Level: 09/12/24 @ 2330 Pharmacy Service will continue to monitor and adjust dosing as required.
[2024-09-11] MEDS: Gabapentin 300 MG Capsule PO (16:42)
[2024-09-11] MEDS: Gabapentin 600 MG Tablet PO (20:54)
[2024-09-11] MEDS: Pramipexole Di-HCl 0.5 MG Tablet PO (20:55)
[2024-09-12 04:13] VITALS: BP 157/90; PULSE 64; RESP 16; TEMP 36.5; O2SAT 97
[2024-09-12 04:16] VITALS: BP 157/90; PULSE 64; RESP 16; TEMP 36.5; O2SAT 97
[2024-09-12] MEDS: Piperacil/Tazobactam 3.375 GM in 0.9% Normal Saline (50mL MB+) 50 ML IV (04:25)
[2024-09-12 06:15] LABS: Absolute Lymphocyte Count 1.13 X10^3/uL (0.83-4.51); Absolute Neutrophil Count 4.2 X10^3/uL (2.0-7.7); Basophil# 0.03 X10^3/uL; Basophil% 0.5 % (0-1); Eosinophil# 0.31 X10^3/uL; Eosinophils% 4.9 % (0-5); Hematocrit 35.7 % (40-54); Hemoglobin 12.2 g/dL (13.0-16.5); Lymphocyte # 1.13 X10^3/ul (0.83-4.51); Lymphocyte % 17.9 % (19-41); Mean Corp Hgb Conc 34.2 g/dL (32-36); Mean Corpuscular Hgb 29.3 pg (27.0-32.0); Mean Corpuscular Volume 85.6 fL (80-94); Mean Platelet Vol. 10.7 fl (6.2-12.0); Monocyte# 0.63 X10^3/uL; NRBC Flagged by Analyzer 0 % (0-5); Neutrophil # 4.21 X10^3/uL (2.7-7.7); Neutrophil % 66.4 % (47-70); Platelet Count 152 K/mm3 (150-450); RBC Distribution Width CV 13.5 % (11.6-14.6); RBC Distribution Width SD 42.5 fl (35.1-43.9); Red Blood Count 4.17 M/mm3 (4.6-6.2); White Blood Count 6.3 K/mm3 (4.4-11.0)
[2024-09-12 07:15] VITALS: O2SAT 95
[2024-09-12 07:28] LABS: Anion Gap 10 (5-15); BUN 16 mg/dL (4-19); BUN/Creat Ratio 14.8 RATIO (10-20); Calcium,Total 8.3 mg/dL (7.6-11.0); Carbon Dioxide 22.2 mmol/L (21.0-32.0); Chloride 107 mmol/L (98-108); Creatinine, Serum 1.08 mg/dL (0.70-1.20); EST Glomerular Filtration Rate 73 (>60); Estimated Creatinine Clearance 64.03 ml/min (50-250); Glucose 93 mg/dL (70-99); Potassium 3.6 mmol/L (3.3-5.1); Sodium Level 139 mmol/L (133-145)
--- NOTE | 2024-09-12 08:44 | PN.HOSP_ITS ---
Reason for Visit Reason for Visit: Diagnoses Sepsis, unspecified organism (09/10/24) Elevated white blood cell count, unspecified (09/10/24) Obesity, class 1 (09/10/24) Parkinson's disease with dyskinesia, with fluctuations (09/10/24) Metabolic encephalopathy (09/10/24) Cellulitis, unspecified (09/10/24) Acute cystitis with hematuria (09/10/24) Urinary tract infection, site not specified (09/10/24) Fever, unspecified (09/10/24) Weakness (09/10/24) Severe sepsis without septic shock (09/10/24) Bacteremia (09/10/24) Other specified abnormal findings of blood chemistry (09/10/24) Subjective Subjective Feels well. Ready to go home. Has had issues with urinary frequency, though currently improved. Objective Data Objective Data Vital Signs: Vital Signs Temp Pulse Resp BP Pulse Ox O2 Del Method 36.5 C L 64 16 157/90 H 97 Room Air 09/12/24 04:16 09/12/24 04:16 09/12/24 04:16 09/12/24 04:16 09/12/24 04:16 09/12/24 04:16 Oxygen Delivery Method Room Air Weight: 91.6 kg Body Mass Index (BMI) 34.7 Intake & Output: Intake and Output for Last 24 Hours 09/10/24 09/11/24 09/12/24 23:59 23:59 23:59 Intake Total 5295 / 5295 905 / 905 1415 / 1415 Output Total 750 / 750 Balance 4545 / 4545 905 / 905 1415 / 1415 Lab / Micro Data 09/12/24 06:02 09/12/24 06:02 Labs: Laboratory Results - last 24 hr 09/11/24 11:40: Sodium 139, Potassium 3.6, Chloride 107, Carbon Dioxide 21.3, Anion Gap 11, BUN 14, Creatinine 1.40 H, Estim Creat Clear Calc 49.40 L, Est GFR (MDRD) Non-Af 54 L, BUN/Creatinine Ratio 10.0, Glucose 115 H, Calcium 8.4 09/12/24 06:02: WBC 6.3, RBC 4.17 L, Hgb 12.2 L, Hct 35.7 L, MCV 85.6, MCH 29.3, MCHC 34.2, RDW Std Deviation 42.5, RDW Coeff of Earl 13.5, Plt Count 152, MPV 10.7, Immature Gran % (Auto) 0.300, Neut % (Auto) 66.4, Lymph % (Auto) 17.9 L, [place] % (Auto) 10.0, Eos % (Auto) 4.9, Baso % (Auto) 0.5, Absolute Neuts (auto) 4.2, Absolute Lymphs (auto) 1.13, Nucleated RBC % 0, Sodium 139, Potassium 3.6, Chloride 107, Carbon Dioxide 22.2, Anion Gap 10, BUN 16, Creatinine 1.08, Estim Creat Clear Calc 64.03, Est GFR (MDRD) Non-Af 73, BUN/Creatinine Ratio 14.8, Glucose 93, Calcium 8.3 Micro: Microbiology 09/10/24 02:35 Blood Culture (Wb) - Right Hand Blood Culture - Preliminary No growth in 48 hours. 09/09/24 22:04 Blood Culture (Wb) - Left Hand Blood Culture - Preliminary No growth in 48 hours. 09/09/24 23:15 Blood Culture (Wb) - Left Hand Blood Culture - Preliminary No growth in 48 hours. 09/09/24 23:22 Blood Culture (Wb) - Anticubital Left Blood Culture - Preliminary Coag Negative Staph 09/09/24 23:47 Mucosa - Nose SARS-CoV-2, Influenza & RSV (PCR) - Final Physical Exam Narrative POCUS: indication RUE swelling. No abscess. Noncompressible brachial artery. Const alert and no apparent distress HEENT head/scalp atraumatic and moist oral mucous membranes Resp normal respiratory effort and no retractions Extremity Extremity Narrative: improved induration of right proximal arm, . Assessment & Plan Assessment/Plan (1) Sepsis: QUALIFIERS: Sepsis acute organ dysfunction status: with acute organ dysfunction Sepsis type: sepsis due to unspecified organism Severe sepsis acute organ dysfunction type: encephalopathy Severe sepsis shock status: without septic shock Qualified Code(s): A41.9 - Sepsis, unspecified organism; R65.20 - Severe sepsis without septic shock; G93.41 - Metabolic encephalopathy PLAN: POA qSOFA 2 (encephalopathy, RR >22) 2/2 UTI +/- cellulitis +/- bacteremia. Monitor (2) Cellulitis: PLAN: Improved. Will dc with doxycycline. cellulitis and also what appears to be vancomycin POCUS concerning for SVT. I did offer the option to stay to have a formal US/duplex, but did say that it would not change mgmt. He elected to be discharged home today. (3) Acute metabolic encephalopathy: PLAN: Resolved 2/2 sepsis, cellulitis in patient with known Parkinson's disease No additional work up (4) Urinary frequency: PLAN: Suspect due to BPH--not UTI. Family told it could be due to his Parkinson's disease. Recommended tamsulosin and follow up with as outpt. (5) UTI (urinary tract infection): PLAN: Ruled out. UA upon further review was unremarkable. UCx negative. pt does have urinary frequency. I suspect due to BPH and recommended tamsulosin. (6) Bacteremia: PLAN: I suspect contamination as 1 of 2 cultures positive for coag negative staph on the . BCx on the negative. PLAN: Plan DW his family at bedside.
[2024-09-12 10:00] VITALS: BP 130/72; PULSE 63; RESP 17; TEMP 36.7; O2SAT 96
[2024-09-12] MEDS: Ascorbic Acid 500 MG Tablet 1000 MG PO (10:33)
[2024-09-12] MEDS: Cholecalciferol (Vit D3) 125 MCG CAPSULE (5,000 UNITS) PO (10:34)
[2024-09-12] MEDS: Ketorolac 15 MG/ML Vial IV (10:34)
[2024-09-12] MEDS: Lactobacillis Acidophilus 1 CAP PO (10:34)
[2024-09-12] MEDS: Carbidopa/Levodopa 10/100 Tablet PO ×2 (10:34→12:21)
[2024-09-12] MEDS: Vancomycin HCl 750 MG in 0.9% Normal Saline (250mL Bag) 250 ML 250 MG IV ×2 (12:22)
--- NOTE | 2024-09-12 12:52 | PCM.DC.SUM ---
Providers Date of Admission: 09/10/24 Primary Care Physician: Dr. Christo Peacock MD Reason For Visit: UTI SEPSIS AMS AND PARKINSON'S DISEASE Diagnosis Discharge Diagnosis (1) Sepsis: Status: Acute Code(s): A41.9 - Sepsis, unspecified organism Qualifiers: Sepsis type: sepsis due to unspecified organism Sepsis acute organ dysfunction status: with acute organ dysfunction Severe sepsis acute organ dysfunction type: encephalopathy Severe sepsis shock status: without septic shock Qualified Code(s): A41.9 - Sepsis, unspecified organism; R65.20 - Severe sepsis without septic shock; G93.41 - Metabolic encephalopathy Plan: POA qSOFA 2 (encephalopathy, RR >22) 2/2 UTI +/- cellulitis +/- bacteremia. Monitor (2) Cellulitis: Status: Acute Code(s): L03.90 - Cellulitis, unspecified Plan: Improved. Will dc with doxycycline. cellulitis and also what appears to be vancomycin POCUS concerning for SVT. I did offer the option to stay to have a formal US/duplex, but did say that it would not change mgmt. He elected to be discharged home today. (3) Acute metabolic encephalopathy: Status: Acute Code(s): G93.41 - Metabolic encephalopathy Plan: Resolved 2/2 sepsis, cellulitis in patient with known Parkinson's disease No additional work up (4) Urinary frequency: Status: Acute Code(s): R35.0 - Frequency of micturition Plan: Suspect due to BPH--not UTI. Family told it could be due to his Parkinson's disease. Recommended tamsulosin and follow up with as outpt. (5) UTI (urinary tract infection): Status: Acute Code(s): N39.0 - Urinary tract infection, site not specified Plan: Ruled out. UA upon further review was unremarkable. UCx negative. pt does have urinary frequency. I suspect due to BPH and recommended tamsulosin. (6) Bacteremia: Status: Acute Code(s): R78.81 - Bacteremia Plan: I suspect contamination as 1 of 2 cultures positive for coag negative staph on the . BCx on the negative. Plan DW his family at bedside. Medications at Discharge Home Medications carbidopa 10 mg-levodopa 100 mg tablet 1 tab PO TID Anti parkinsons 01/05/24 pramipexole 0.5 mg tablet 0.5 mg PO QHS Antiparkinsons 01/05/24 gabapentin 300 mg capsule 300 mg PO .evening Neuropathy 09/10/24 L.acidophil,salivari-Bifido bifidum-Strep thermoph 175 mg capsule 1 cap PO 4X/DAY #20 caps 09/12/24 doxycycline monohydrate 100 mg capsule 100 mg PO BID #10 caps 09/12/24 tamsulosin 0.4 mg capsule 0.4 mg PO DAILY #30 caps 09/12/24 Hospital Course Operations None Procedures None Summary of Care Provided Minutes Spent on Discharge: 40 Hospital Course: Patient presents with sepsis and metabolic encephalopathy secondary to to a respiratory cellulitis. Prior to arrival, patient had erythema of his antecubital area more proximally along his biceps. Concern was for urinary tract faction when he presented though his urinalysis only showed 5-10 white blood cells in his urine culture while being negative. Says he was initially treated for urinary tract infection but seems that the symptoms were more related with a cellulitis. Patient has improvement and will be discharged with doxycycline. Patient does have urinary frequency which I think is probably more due to BPH though family has been told that may be due to Parkinson's. I did recommend starting tamsulosin to see if that would help. Patient and his family are advised to monitor his upper extremities for any worsening redness or swelling to contact someone or return to the emergency room. I did do a bedside ultrasound and show that his bradycardia was noncompressible so I am concerned that he may have had a SVT as well did offered the option to stay in the hospital to have that formally evaluated but also told him if it is SVT it would not private branch exchange installer would just be conservative measures. He elected to go home. Weight / BMI Weight Weight: 91.6 kg Body Mass Index (BMI) 34.7 ABG / Lab / Microbiology Data 09/12/24 06:02 09/12/24 06:02 Laboratory: Laboratory Results - last 24 hr 09/12/24 06:02: WBC 6.3, RBC 4.17 L, Hgb 12.2 L, Hct 35.7 L, MCV 85.6, MCH 29.3, MCHC 34.2, RDW Std Deviation 42.5, RDW Coeff of Earl 13.5, Plt Count 152, MPV 10.7, Immature Gran % (Auto) 0.300, Neut % (Auto) 66.4, Lymph % (Auto) 17.9 L, [place] % (Auto) 10.0, Eos % (Auto) 4.9, Baso % (Auto) 0.5, Absolute Neuts (auto) 4.2, Absolute Lymphs (auto) 1.13, Nucleated RBC % 0, Sodium 139, Potassium 3.6, Chloride 107, Carbon Dioxide 22.2, Anion Gap 10, BUN 16, Creatinine 1.08, Estim Creat Clear Calc 64.03, Est GFR (MDRD) Non-Af 73, BUN/Creatinine Ratio 14.8, Glucose 93, Calcium 8.3 Microbiology: Microbiology 09/09/24 23:19 Urine, Bladder Washings Urine Culture - Final Culture exhibits no growth. 09/10/24 02:35 Blood Culture (Wb) - Right Hand Blood Culture - Preliminary No growth in 48 hours. 09/09/24 22:04 Blood Culture (Wb) - Left Hand Blood Culture - Preliminary No growth in 48 hours. 09/09/24 23:15 Blood Culture (Wb) - Left Hand Blood Culture - Preliminary No growth in 48 hours. 09/09/24 23:22 Blood Culture (Wb) - Anticubital Left Blood Culture - Preliminary Coag Negative Staph 09/09/24 23:47 Mucosa - Nose SARS-CoV-2, Influenza & RSV (PCR) - Final D/C Instructions Discharge Diet: No restrictions DC O2, CPAP, BIPAP Needs Home O2 Discharge instructions: No Meaningful Use Info Meaningful Use Meaningful Use Diagnoses (Choose all that apply): None applicable Ischemic Stroke Statin Dosing Therapy Reference: STATIN DOSE THERAPY REFERENCE: * Patients > 75 years receive moderate or high dose statin therapy. * Patients 75 years or YOUNGER should receive HIGH intensity statin dose unless contraindicated. You will be required to document reason for non-treatment if statin daily dose does not meet guidelines. HIGH DOSE STATIN THERAPY DAILY Atorvastatin > than or = to 40 mg Rosuvastatin > than or = to 20 mg Amlodipine + Atorvastatin > than or = to 2.5/40 mg Ezetimibe + Simvastatin 10/80 mg Simvastatin 80mg Discharge Plan Admission Admit Date/Time: 09/10/24 01:33 Primary Reason for Your Visit: Cellulitis Attending Provider: Andrade Arango Primary Care Provider: Christo Peacock Consulting Providers: Camden Zelaya Instructions Additional Instructions / Restrictions: You have cellulitis, infection of your arm. You will need to be on antibiotics and take that to completion. There was concern that you may have a urinary tract infection though upon further review does not appear that you actually do have a urinary tract infection. Though I am concerned because of your urinary frequency that could be a source of future infections I do recommending taking something to help with your urination as I feel the more likely have enlarged prostate. The medication is tamsulosin (also known as Flomax) do recommend seeing an urologist as well. Discharge Orders/Prescriptions Prescriptions: Snehal Levybif-S.therm 175 mg Capsule 1 cap PO 4X/DAY Qty: 20 0RF doxycycline monohydrate 100 mg capsule 100 mg PO BID Qty: 10 0RF tamsulosin 0.4 mg capsule 0.4 mg PO DAILY Qty: 30 0RF Continued pramipexole 0.5 mg tablet 0.5 mg PO QHS carbidopa-levodopa 10-100 mg tablet 1 tab PO TID gabapentin 300 mg capsule 300 mg PO .evening Patient Comments: 600mg at hs Referrals / Follow Up: Christo Peacock MD [Primary Care Provider] - Within 2 Weeks Disposition Disposition (needs filled in before D/C Order can be placed): Home, Self Care Charges/Coding Visit Charges Inpatient E&M: 87893 Disch Hosp >30min
[2024-09-12 14:25] VITALS: BP 161/93; PULSE 66; RESP 16; TEMP 36.6; O2SAT 98
--- OUTSIDE RECORDS SUMMARY | 2024-09-15 21:48 | XMS RPT_ITS | CCD ---
Author Organization [facility] CliniSyct Care Team Providers Care Industrial Custodian Name Role Phone Christo Warren MD Primary Care Provider Christo Warren MD Primary Care Provider Haagen ALLERGIST IMMUNOLOGIST.ROLL CONTOUR GRINDER Hermelinda Unavailable Suppan ALLERGIST IMMUNOLOGIST.ROLL CONTOUR GRINDER, Palak A Unavailable [phone] Suppan ALLERGIST IMMUNOLOGIST.ROLL CONTOUR GRINDER, Palak A Unavailable [phone] Suppan ALLERGIST IMMUNOLOGIST.ROLL CONTOUR GRINDER, Palak A Unavailable [phone] SELF Referring Unavailable CHRISTO WARREN Primary Care Unavailable MERON COOPER Attending Unavailable NIKKI JAVIER Referring Unavailable CHRISTO WARREN Primary Care Unavailable Dr. Christo Warren MD Primary Care Provider Dr. Derrek Chauhan DO Emergency Provider [phone] Dr. Camden Zelaya DO Admfemi Provider Unavail able Dr. Camden Zelaya DO Attending Provider Unav ailable RACHEL MARTINS Attending Unavailable CHRISTO WARREN Primary Care Unavailable RACHEL MARTINS Attending Unavailable CHRISTO WARREN Primary Care Unavailable NIKKI JAVIER Attending Unavailable CHRISTO WARREN Referring Unavailable CHRISTO WARREN Primary Care Unavailable CHRISTO WARREN Primary Care Unavailable CHRISTO WARREN Attending Unavailable CHRISTO WARREN Primary Care Unavailable BONNY BAINS Attending Unavailable CHRISTO WARREN Referring Unavailable CHRISTO WARREN Primary Care Unavailable NIKKI JAVIER Attending Unavailable CHRISTO WARREN Primary Care Unavailable NIKKI JAVIER Attending Unavailable NIKKI JAVIER Referring Unavailable CHRISTO WARREN Primary Care Unavailable CHRISTO WARREN Attending Unavailable CHRISTO WARREN Primary Care Unavailable CHRISTO WARREN Referring Unavailable CHRISTO WARREN Primary Care Unavailable Dr. Camden Zelaya DO Other Provider Unavail able Dr. Andrade Arango DO Attending Provider Dr. Andrade Arango DO Other Provider Camden Zelaya Admitting Unavailable Christo Warren Primary Care Unavailable Camden Zelaya Consulting Unavailable Camden Zelaya Attending Unavailable Christo Warren Primary Care Unavailable Christo Warren Attending Unavailable Andrade Arango Attending Unavailable Camden Zelaya Admitting Unavailable de Camden Reyna Consulting Unavailable Christo Warren Primary Care Unavailable Care Physician, No Primary Primary Care Unava ilJessica London Attending Unavailable Christo Warren Referring Unavailable Ignacio, Christo Primary Care Unavailable Mohan Adhikari Attending Unavailable Christo Warren Referring Unavailable Michelet, Christo Primary Care Unavailable Mohan Adhikari Consulting Unavailable Mohan Adhikari Attending Unavailable Andrade Arango Attending Unavailable Andrade Arango Consulting Unavailable Medications Current Medications Medication Drug Class(es) [...] on above: Take 1 tablet by gold twice daily for 10 days. azithromycin 250 mg oral tablet (2 sources) Macrolide Antimicrobial Start: 05-01-2024 End: 05-06-2024 take 2 tablets by mouth once daily, then take 1 tablet by mouth once daily azithromycin (ZITHROMAX) 250 mg tablet Indications: Bronchitis Take 2 tablets by mouth once daily for 1 day, THEN 1 tablet once daily for 4 days. 6 tablet 05/01/2024 05/06/2024 Active benzonatate 100 mg oral capsule (20 sources) Non-narcotic Antitussive Start: 05-01-2024 take 1 capsule by mouth three times daily as needed benzonatate (TESSALON PERLE) 100 mg capsule Indications: Bronchitis Take 1 capsule by mouth three times a day as needed. 30 capsule 05/01/2024 Active Start: 11-11-2023 End: 04-12-2024 take 1 capsule by mouth every eight hours as needed benzonatate (TESSALON PERLE) 100 mg capsule Take 1 capsule by mouth three times a day as needed. 21 capsule 11/11/2023 04/12/2024 Discontinued Start: 01-02-2021 take 1 capsule by mo uth every eight hours as needed benzonatate (TESSALON PERLES) 100 mg capsule Take 1 capsule by mouth three times daily as needed for cough. 12 capsule 0 01/02/2021 Active Comment on above: Take 1 capsule by mo uth three times daily as needed for cough. carbidopa 25 mg / levodopa 100 mg oral tablet (20 sources) Aromatic Amino Acid Decarboxylation Inhibitor, Aromatic Amino Acid Start: 08-06-19 End: 08-06-19 take 2 tablets by mouth three times daily carbidopa-levodopa (SINEMET) 25-100 mg per tablet Indications: Parkinson's disease without dyskinesia or fluctuating manifestations (HCC) Take 2 tablets by mouth three times a day. 540 tablet 3 08/05/2024 08/05/2025 Active Start: 01-05-2024 Carbidopa-Levo dopa 10-100 mg tablet Active 1 {tbl} PO THREE TIMES A DAY January 05, 2024 12:00am Start: 11-17-2023 End: 05-15-2024 take 2 tablets [...] 7 days. 105 mL 11/20/2023 11/27/2023 Active doxycycline monohydrate 100 mg oral capsule (1 source) Tetracycline-clas s Drug Start: 09-12-2024 take 1 capsule by mouth twice daily Doxycycline Monohydrate 100 mg capsule Active 100 mg PO TWICE A DAY September 12, 2024 12:00am gabapentin 300 mg oral capsule (13 sources) Anti-epileptic Agent Start: 04-19-2024 End: 10-17-2024 Gabapentin 300 mg capsule Active 300 mg PO .evening September 10, 2024 12:00am Start: 01-09-2023 End: 01-14-2023 take 1 capsule by mouth once daily at bedtime gabapentin (NEURONTIN) 100 mg capsule Indications: RLS (restless legs syndrome) Take 1 capsule by mouth daily at bedtime for 90 days. 30 capsule 0 01/09/2023 01/14/2023 Discontinued Comment on above: Take 1 capsule by [facility] daily at bedtime for 90 days. L.Acidoph,Saliva-B. Bif-S.Therm 175 mg Capsule (1 source) Start: take 1 capsule by mouth four times daily L.Acidoph,Saliva-B.Bi f-S.Therm 175 mg Capsule Active 1 NMA PO 4 TIMES DAILY September 12, 2024 12:00am lisinopril 10 mg oral tablet (20 sources) Angiotensin Converting Enzyme Inhibitor Start: 5 End: 6 take 1 tablet by mouth once daily [...] 500 mg oral tablet (20 sources) End: take 1 tablet by mouth once daily Magnesium Oxide 500 mg tab Take 500 mg by mouth once daily. 04/12/2024 Discontinued Comment on above: Take 500 mg by mouth once daily. melatonin 10 mg oral tablet (5 sources) take 1 tablet by mouth once daily at bedtime melatonin 10 mg tab Take 10 mg by mouth daily at bedtime. Active pramipexole dihydrochloride 0.5 mg oral tablet (20 sources) Nonergot Dopamine Agonist Start: End: 5 take 1 tablet by mouth at bedtime Pramipexole 0.5 mg tablet Active 0.5 mg PO AT BEDTIME January 05, 2024 12:00am Start: 09-08-2023 End: 09-08-2023 take 1 tablet [...] tablet by gold th daily at bedtime. tamsulosin hydrochloride 0.4 mg oral capsule (1 source) alpha-Adrenergic Karolyn Start: take 1 capsule by mouth once daily Tamsulosin 0.4 mg capsule Active 0.4 mg PO DAILY September 12, 2024 12:00am Vitamin B Complex (20 sources) Start: End: take 1 tablet by mouth [...] for 7 days. 14 tablet 11/11/2023 11/18/2023 ascorbic acid 500 mg oral tablet (20 sources) Vitamin C Start: 12-28-2010 End: 04-12-2024 take 1 tablet by mouth once daily Ascorbic Acid (Vitamin C) (Vitamin C) 500 MG tablet Discontinued 500 mg PO DAILY@0800 July 11, 2017 12:00am January 05, 2024 11:16am Comment on above: Take 1 tablet by gold th once daily. aspirin 81 mg delayed release oral tablet (20 sources) Platelet Aggregation Inhibitor, Nonsteroidal Anti-inflammatory Drug Start: 07-11-2017 End: 01-05-2024 take 1 tablet by mouth once daily Aspirin 81 MG tablet Discontinued 81 mg PO DAILY@799July 11, 2017 12:00am January 05, 2024 11:16am Start: 12-28-2010 take 1 tablet by gold th once daily aspirin 325 mg ORAL tablet Take 1 tablet by mouth once daily. 0 12/28/2010 Active Comment on above: Take 1 tablet by gold th once daily. atorvastatin 20 mg oral tablet (2 sources) HMG-CoA Reductase Inhibitor Start: 01-05-20 End: 09-11-19 take 1 tablet by mouth at bedtime Atorvastatin (Lipitor) 20 mg tablet Discontinued 20 mg PO AT BEDTIME January 05, 2024 12:00am September 10, 2024 1:09am clindamycin 150 mg oral capsule (4 sources) Lincosamide Antibacterial Start: 05-21-19 End: 01-05-20 take 1 capsule by mouth three times daily Clindamycin Hcl 150 MG capsule Discontinued 150 mg PO THREE TIMES A DAY May 21, 2019 1:00am January 05, 2024 11:19am Start: 03-24-2019 End: 04-03-2019 take 1 capsule by mouth three times daily Clindamycin Hcl 150 MG capsule Discontinued 150 mg PO THREE TIMES A DAY 20 01March 24, 2019 1:00am April 02, 2019 1:00am April 03, 2019 1:09am diphenhydrAMINE hydrochloride 50 mg oral capsule (2 sources) Histamine-1 Receptor Antagonist Start: 01-23-2011 End: 11-19-2021 take 1 capsule by mouth every six hours as needed diphenhydrAMINE (SLEEP AID, DIPHENHYDRAMINE,) 50 mg ORAL capsule Take 1 capsule by mouth every 6 hours as needed. 0 01/23/2011 11/19/2021 Discontinued Comment on above: Take 1 capsule by mo [facility] every 6 hours as needed. hydrOXYzine [...] on above: Take 1 tablet by gold daily at bedtime. May increase to 2 tablets at bedtime if one is not effective. Multivitamin (Multiple Vitamins) 1 EACH tablet (2 sources) Start: 07-11-2017 End: 01-05-2024 take 1 tablet by mouth once daily Multivitamin (Multiple Vitamins) 1 EACH tablet Discontinued 1 NMA PO DAILY July 11, 2017 12:00am January 05, 2024 11:16am oxaprozin 600 mg oral tablet (1 source) Nonsteroidal Anti-inflammatory Drug Start: 06-13-2020 take 2 tablets by mouth once daily oxaprozin (DAYPRO) 600 mg tablet Indications: Chronic midline low back pain without sciatica Take 2 tablets by mouth once daily. 60 tablet 0 06/13/2020 Active Comment on above: Take 2 tablets by [facility] once daily. Saw Edison 160 mg capsule (1 source) Start: 04-07-2014 End: 03-12-2021 take 1 capsule by mouth twice daily Saw Edison 160 mg capsule Take 160 mg by mouth twice daily. 0 04/07/2014 03/12/2021 Discontinued Vitamin B Complex 1 EACH capsule (2 sources) Start: 07-11-2017 End: 01-05-2024 Vitamin B Complex 1 EACH capsule Discontinued 1 NMA PO DAILY July 11, 2017 12:00am January 05, 2024 11:16am Problems Active Problems Problem Classification Problem Date Documented Date Episodic/Chronic Anxiety disorders (20 sources) Mixed anxiety and depressive disorder; Translations: [Anxiety disorder, unspecified] Onset: 08-14-2015 08-14-2015 Chronic Bacterial infection; unspecified site (4 sources) Bacteremia; Translations: [Bacteremia] Onset: 09-12-2024 09-11-2024 Episodic Chronic obstructive pulmonary disease and bronchiectasis (2 sources) Bronchitis; Translations: [Bronchitis, not specified as acute or chronic] Onset: 05-01-2024 05-01-2024 Episodic Diseases of white blood cells (6 sources) Leukocytosis; Translations: [Elevated white blood cell count, unspecified] Onset: 09-12-2024 09-10-2024 Chronic Disorders of teeth and jaw (1 source) Toothache; Translations: [Other specified disorders of teeth and supporting structures] Episodic Essential hypertension (20 sources) Essential hypertension; Translations: [Essential (primary) hypertension] Onset: 08-14-2015 Chronic Fever of unknown origin (6 sources) Fever; Translations: [Fever, unspecified] Onset: 09-12-2024 09-10-2024 Episodic Genitourinary symptoms and ill-defined conditions (4 sources) Increased frequency of urination; Translations: [Frequency of micturition] Onset: 09-12-2024 09-12-2024 Episodic Malaise and fatigue (6 sources) Asthenia; Translations: [Weakness] Onset: 09-12-2024 09-10-2024 Episodic Other and unspecified benign neoplasm (5 sources) History of polyp of colon; Translations: [...] 08-06-2015 11-23-2015 Chronic Other nervous system disorders (4 sources) Metabolic encephalopathy; Translations: [Metabolic encephalopathy] 09-10-2024 Chronic Other nervous system disorders (2 sources) Metabolic encephalopathy; Translations: [Metabolic encephalopathy] Onset: 09-12-2024 Chronic Other nervous system disorders (1 source) [...] [Other disorders of bilirubin metabolism] 01-20-2023 Chronic Other nutritional; endocrine; and metabolic disorders (4 sources) Obese class I; Translations: [Class 1 obesity] 09-10-2024 Chronic Other screening for suspected conditions (not mental disorders or infectious disease) (20 sources) Patient encounter status; Translations: [Encounter for screening for malignant neoplasm of colon] Onset: 01-05-2024 01-24-2023 Episodic Otitis media and related conditions (1 source) Acute right otitis media; Translations: [Otitis media, unspecified, right ear] 11-11-2023 Episodic Parkinson`s disease (4 sources) Parkinson`s disease; Translations: [Parkinson's disease without dyskinesia or fluctuating manifestations (HCC)] Onset: 08-05-2024 Residual codes; unclassified (1 source) Family history of cancer of colon; Translations: [Family history of malignant neoplasm of digestive organs] 09-29-2023 Episodic Septicemia (except in labor) (8 sources) Sepsis; Translations: [Sepsis, unspecified organism] Onset: 09-12-2024 09-10-2024 Episodic Skin and subcutaneous tissue infections (4 sources) Cellulitis; Translations: [Cellulitis, unspecified] Onset: 09-12-2024 09-11-2024 Episodic Unclassified (11 sources) Parkinson's disease; Translations: [Parkinson's disease without dyskinesia or fluctuating manifestations (HCC)] 11-17-2023 Chronic Unclassified (2 sources) Obesity, class 1; Translations: [Obesity, class 1] Onset: 09-12-2024 Unclassified (1 source) Personal history of colon polyps, unspecified; Translations: [Personal history of colon polyps, unspecified] Onset: 03-13-2024 Urinary tract infections (10 sources) Acute cystitis; Translations: [Acute cystitis with hematuria] Onset: 09-12-2024 09-10-2024 Episodic Past or Other Problems Problem Classification Problem [...] classified] Onset: 11-28-2015 Resolved: 10-30-2017 10-30-2017 Episodic Spondylosis; intervertebral disc disorders; other back problems (20 sources) Neck pain; Translations: [Cervicalgia] Onset: 09-09-2017 Resolved: 10-30-2017 10-30-2017 Episodic Results Test Name Value Interpretation Reference Range Facility Absolute lymphocyte countOrd ered By: Anrdade Arango on 09-12-2024 Lymphocytes Auto (Unsp spec) [#/Vol] 1.13 10*3/uL 0.83-4.51 [facility] Absolute neutrophil countOrd ered By: Andrade Arango on 09-12-2024 Neutrophils (Bld) [#/Vol] 4.2 10*3/uL 2.0-7.7 [facility] Anion gap in Serum or Plasma Ordered By: Andrade Arango on 09-12-2024 Anion gap [Moles/Vol] 10 mmol/L 08-05 [facility] Automated lymphocyte count a s percentage of total leukocytesOrdered By: Andrade Arango on 09-12-2024 Lymphocytes/100 WBC Auto (Unsp spec) 17.9 % Low - [facility] BUN/creatinine ratioOrdered By: Andrade Arango on 09-12-2024 Urea nitrogen/Creatinine [Mass ratio] 14.8 mg/mg 01-10 [facility] Basic Metabolic Profile (BMP )on 09-12-2024 BUN/CRE 14.8 RATIO Normal 01-10 [facility] Comment on above: Performed By: #### L 100.0100, L300.3900, L500.2500 #### [facility] [address] [place], [address] Calcium [Mass/Vol] 8.3 mg/dL Normal 7.6-11.0 [facility] Comment on above: Performed By: #### L 100.0100, L300.3900, L500.2500 #### [facility] [address] [place], [address] Chloride [Moles/Vol] 107 mmol/L Normal 98-108 [place] Comment on above: Performed By: #### L 100.0100, L300.3900, L500.2500 #### [facility] [address] [place], [address] CO2 [Moles/Vol] 22.2 mmol/L Normal 21.0-32.0 [facility] Comment on above: Performed By: #### L 100.0100, L300.3900, L500.2500 #### [facility] [address] [place], [address] Creatinine [Mass/Vol] 1.08 mg/dL Normal 0.70-1.20 [facility] Comment on above: Performed By: #### L 100.0100, L300.3900, L500.2500 #### [facility] [address] [place], [address] ECRCL 64.03 ml/min Normal 50-250 [facility] Comment on above: Performed By: #### L 100.0100, L300.3900, L500.2500 #### [facility] [address] [place], [address] GAP 10 Normal 5-15 [facility] Comment on above: Performed By: #### L 100.0100, L300.3900, L500.2500 #### [facility] [address] [place], [address] GFR/1.73 sq M.predicted among non-blacks MDRD (S/P/Bld) [Vol rate/Area] 73 mL/min/{1.73_m2} Normal >60 [facility] Comment on above: Result Comment: mL/m in/1.73m2 CKD-EPI Creatinine Equation (2020) Performed By: #### L 100.0100, L300.3900, L500.2500 #### [facility] [address] [place], [address] Glucose [Mass/Vol] 93 mg/dL Normal 70-99 [facility] Comment on above: Performed By: #### L 100.0100, L300.3900, L500.2500 #### [facility] [address] [place], [address] Potassium [Moles/Vol] 3.6 mmol/L Normal 3.3-5.1 [facility] Comment on above: Performed By: #### L 100.0100, L300.3900, L500.2500 #### [facility] [address] [place], [address] Sodium [Moles/Vol] 139 mmol/L Normal 133-145 [facility] Comment on above: Performed By: #### L 100.0100, L300.3900, L500.2500 #### [facility] [address] [place], [address] Urea nitrogen [Mass/Vol] 16 mg/dL Normal 4-19 [facility] Comment on above: Performed By: #### L 100.0100, L300.3900, L500.2500 #### [facility] [address] [place], [address] Basophil percentageOrdered B y: Andrade Arango on 09-12-2024 Basophils/100 WBC (Bld) 0.5 % 0-1 [facility] CBC W/Diff, Automatedon - Absolute Lymph 1.13 X10 3/uL Normal 0.83-4.51 [facility] Comment on above: Performed By: #### L 100.0100, L300.3900, L500.2500 #### [facility] [address] [place], [address] Absolute Neut 4.2 X10 3/uL Normal 2.0-7.7 [facility] Comment on above: Performed By: #### L 100.0100, L300.3900, L500.2500 #### [facility] [address] [place], [address] Basophils/100 WBC (Bld) 0.5 % Normal 0-1 [facility] Comment on above: Performed By: #### L 100.0100, L300.3900, L500.2500 #### [facility] [address] [place], [address] Eosinophils/100 WBC (Bld) 4.9 % Normal 0-5 [facility] Comment on above: Performed By: #### L 100.0100, L300.3900, L500.2500 #### [facility] [address] [place], [address] Erythrocyte distribution width (RBC) [Ratio] 13.5 % Normal 11.6-14.6 [facility] Comment on above: Performed By: #### L 100.0100, L300.3900, L500.2500 #### [facility] [address] [place], [address] Hematocrit (Bld) [Volume fraction] 35.7 % Low 40-54 [facility] Comment on above: Performed By: #### L 100.0100, L300.3900, L500.2500 #### [facility] [address] [place], [address] Hemoglobin (Bld) [Mass/Vol] 12.2 g/dL Low 13.0-16.5 [facility] Comment on above: Performed By: #### L 100.0100, L300.3900, L500.2500 #### [facility] [address] [place], [address] IG% 0.300 Normal 0.0-0.9 [facility] Comment on above: Result Comment: IG% - Immature Granulocytes (promyelocytes, myelocytes and metamyelocytes) > 1% indicates that a LEFT SHIFT is Present. Performed By: #### L 100.0100, L300.3900, L500.2500 #### [facility] [address] [place], [address] Lymphocytes/100 WBC (Bld) 17.9 % Low 19-41 [facility] Comment on above: Performed By: #### L 100.0100, L300.3900, L500.2500 #### [facility] [address] [place], [address] MCH (RBC) [Entitic mass] 29.3 pg Normal 27.0-32.0 [facility] Comment on above: Performed By: #### L 100.0100, L300.3900, L500.2500 #### [facility] [address] [place], [address] MCHC (RBC) [Mass/Vol] 34.2 g/dL Normal 32-36 [facility] Comment on above: Performed By: #### L 100.0100, L300.3900, L500.2500 #### [facility] [address] [place], [address] MCV (RBC) [Entitic vol] 85.6 fL Normal 80-94 [facility] Comment on above: Performed By: #### L 100.0100, L300.3900, L500.2500 #### [facility] [address] [place], [address] Monocytes/100 WBC (Bld) 10.0 % Normal 0-10 [facility] Comment on above: Performed By: #### L 100.0100, L300.3900, L500.2500 #### [facility] [address] [place], [address] Neutrophils/100 WBC (Bld) 66.4 % Normal 47-70 [facility] Comment on above: Performed By: #### L 100.0100, L300.3900, L500.2500 #### [facility] [address] [place], [address] Nucleated RBC (Bld) [#/Vol] 0 10*3/uL Normal 0-5 [facility] Comment on above: Performed By: #### L 100.0100, L300.3900, L500.2500 #### [facility] [address] [place], [address] Platelet mean volume (Bld) [Entitic vol] 10.7 fL Normal 6.2-12.0 [facility] Comment on above: Performed By: #### L 100.0100, L300.3900, L500.2500 #### [facility] [address] [place], [address] Platelets (Bld) [#/Vol] 152 10*3/uL Normal 150-450 [facility] Comment on above: Performed By: #### L 100.0100, L300.3900, L500.2500 #### [facility] [address] [place], [address] RBC (Bld) [#/Vol] 4.17 10*6/uL Low 4.6-6.2 [facility] Comment on above: Performed By: #### L 100.0100, L300.3900, L500.2500 #### [facility] [address] [place], [address] RDW SD 42.5 fl Normal 35.1-43.9 [facility] Comment on above: Performed By: #### L 100.0100, L300.3900, L500.2500 #### [facility] [address] [place], [address] WBC (Bld) [#/Vol] 6.3 10*3/uL Normal 4.4-11.0 [facility] Comment on above: Performed By: #### L 100.0100, L300.3900, L500.2500 #### [facility] [address] [place], [address] Carbon dioxide, total [Moles /volume] in Central venous bloodOrdered By: Andrade Arango on 09-12-2024 CO2 [Moles/Vol] 22.2 mmol/L 21.0-32.0 [facility] Chloride assayOrdered By: Tevin Arango on 09-12-2024 Chloride [Moles/Vol] 107 mmol/L 98-108 [place] Culture, Blood (WB)on 2024 CUB Blood cultures x2, f rom two different sites ANAEROBIC GRAM STAIN= GRAM POSITIVE COCCI IN CLUSTERS Culture, Blood (WB) RESULTS CALLED TO MIKE ENRIQUEZ RN 09/11/24 0651 Xochitl Alvarado. REPORT READ BACK BY SAME. Culture, Blood (WB) Possible skin contamination, further Identification and sensitivity will be performed only by physician's request. Culture, Blood (WB) Coag Negative Staph Amount Growth Growth * This is an amended result. * A prior result that was reported as final has been changed. 09/15/24823 by SUREKHA Previously reported as: [] * This is an amended result. * A prior result that was reported as final has been changed. 09/15/24824 by SUREKHA [facility] Comment on above: Performed By: #### L 400.0001 #### [facility] [address] [place], [place], [address] CUB Blood cultures x2, f rom two different sites No growth in 5 days. [facility] Comment on above: Performed By: #### L 500.2500 #### [facility] [address] [place], [address] Eosinophil percentageOrdered By: Andrade Arango on 09-12-2024 Eosinophils/100 WBC (Bld) 4.9 % 0-5 [facility] Erythrocyte distribution wid th ratioOrdered By: Andrade Arango on 09-12-2024 Erythrocyte distribution width (RBC) [Ratio] 13.5 % 11.6-14.6 [facility] Erythrocyte distribution wid th standard deviationOrdered By: Andrade Arango on 09-12-2024 Erythrocyte distribution width (RBC) [Ratio] 42.5 fl 35.1-43.9 [facility] Glomerular filtration rate ( GFR) estimation/1.73 sq m using serum, plasma, or whole bOrdered By: Andrade Arango on 09-12-2024 GFR/1.73 sq M.predicted among non-blacks MDRD (S/P/Bld) [Vol rate/Area] 73 mL/min/{1.73_m2} >60 [facility] Comment on above: mL/min/1.73m2 CKD-EP I Creatinine Equation (2020) Hematocrit Auto (Bld) [Volum e fraction]Ordered By: Andrade Arango on 09-12-2024 Hematocrit (Bld) [Volume fraction] 35.7 % Low 40-54 [facility] Hemoglobin measurementOrdere d By: Andrade Arango on 09-12-2024 Hemoglobin (Bld) [Mass/Vol] 12.2 g/dL Low 13.0-16.5 [facility] Immature granulocytes/100 WB C Auto (Bld)Ordered By: Andrade Arango on 09-12-2024 Immature granulocytes/100 WBC (Bld) 0.300 % 0.0-0.9 [facility] Comment on above: IG% - Immature Granu locytes (promyelocytes, myelocytes and metamyelocytes) > 1% indicates that a LEFT SHIFT is Present. MCV (mean corpuscular volume ) determinationOrdered By: Andrade Arango on 09-12-2024 MCV (RBC) [Entitic vol] 85.6 fL 80-94 [facility] Mean corpuscular hemoglobin (MCH) determinationOrdered By: Andrade Arango on 09-12-2024 MCH (RBC) [Entitic mass] 29.3 pg 27.0-32.0 [facility] Mean corpuscular hemoglobin concentration (MCHC) determinationOrdered By: Andrade Arango on 09-12-2024 MCHC (RBC) [Mass/Vol] 34.2 g/dL 32-36 [facility] Mean platelet volume determi nationOrdered By: Andrade Arango on 09-12-2024 Platelet mean volume (Bld) [Entitic vol] 10.7 fL 6.2-12.0 [facility] Monocyte percentageOrdered B y: Andarde Arango on 09-12-2024 Monocytes/100 WBC (Bld) 10.0 % 0-10 [facility] Neutrophil percentageOrdered By: Andrade Arango on 09-12-2024 Neutrophils/100 WBC (Bld) 66.4 % 47-70 [facility] Nucleated red blood cell per centageOrdered By: Andrade Arango on 09-12-2024 Nucleated RBC/100 WBC (Bld) [Ratio] 0 % 0-5 [facility] Platelet countOrdered By: Tevin Arango on 09-12-2024 Platelets (Bld) [#/Vol] 152 10*3/uL 150-450 [facility] Potassium measurement (mass/ volume)Ordered By: Andrade Arango on 09-12-2024 Potassium (Unsp spec) [Mass/Vol] 3.6 mmol/L 3.3-5.1 [facility] RBC Auto (Bld) [#/Vol]Ordere d By: Andrade Arango on 09-12-2024 RBC (Bld) [#/Vol] 4.17 10*6/uL Low 4.6-6.2 [facility] Serum creatinine measurement (mass/volume)Ordered By: Andrade Arango on 09-12-2024 Creatinine [Mass/Vol] 1.08 mg/dL 0.70-1.20 [facility] Serum glucose measurement (m ass/volume)Ordered By: Andrade Arango on 06-22-2025 Glucose [Mass/Vol] 93 mg/dL 70-99 [facility] Serum or plasma calcium phil urement (mass/volume)Ordered By: Andrade Arango on 09-12-2024 Calcium [Mass/Vol] 8.3 mg/dL 7.6-11.0 [facility] Serum or plasma urea nitroge n measurement (mass/volume)Ordered By: Andrade Arango on 09-12-2024 Urea nitrogen [Mass/Vol] 16 mg/dL 4-19 [facility] Sodium levelOrdered By: Andrade Arango on 09-12-2024 Sodium [Moles/Vol] 139 mmol/L 133-145 [facility] White blood cell (WBC) count Ordered By: Andrade Arango on 09-12-2024 WBC (Bld) [#/Vol] 6.3 10*3/uL 4.4-11.0 [facility] Basic Metabolic Profile (BMP )on 09-11-2024 BUN/CRE 10.0 RATIO Normal 10-20 [facility] Comment on above: Order Comment: FOR V ANCOMYCIN DOSING, LAST SCR FROM 09/09 Performed By: #### L 500.2500 #### [facility] [address] [place], [address] Calcium [Mass/Vol] 8.4 mg/dL Normal 7.6-11.0 [facility] Comment on above: Order Comment: FOR V ANCOMYCIN DOSING, LAST SCR FROM 09/09 Performed By: #### L 500.2500 #### [facility] [address] [place], [address] Chloride [Moles/Vol] 107 mmol/L Normal 98-108 [place] Comment on above: Order Comment: FOR V ANCOMYCIN DOSING, LAST SCR FROM 09/09 Performed By: #### L 500.2500 #### [facility] [address] [place], [address] CO2 [Moles/Vol] 21.3 mmol/L Normal 21.0-32.0 [facility] Comment on above: Order Comment: FOR V ANCOMYCIN DOSING, LAST SCR FROM 09/09 Performed By: #### L 500.2500 #### [facility] [address] [place], [address] Creatinine [Mass/Vol] 1.40 mg/dL High 0.70-1.20 [facility] Comment on above: Order Comment: FOR V ANCOMYCIN DOSING, LAST SCR FROM 09/09 Performed By: #### L 500.2500 #### [facility] [address] [place], [address] ECRCL 49.40 ml/min Low 50-250 [facility] Comment on above: Order Comment: FOR V ANCOMYCIN DOSING, LAST SCR FROM 09/09 Performed By: #### L 500.2500 #### [facility] [address] [place], [address] GAP 11 Normal 5-15 [facility] Comment on above: Order Comment: FOR V ANCOMYCIN DOSING, LAST SCR FROM 09/09 Performed By: #### L 500.2500 #### [facility] [address] [place], [address] GFR/1.73 sq M.predicted among non-blacks MDRD (S/P/Bld) [Vol rate/Area] 54 mL/min/{1.73_m2} Low >60 [facility] Comment on above: Order Comment: FOR V ANCOMYCIN DOSING, LAST SCR FROM 09/09 Result Comment: mL/m in/1.73m2 CKD-EPI Creatinine Equation (2020) Performed By: #### L 500.2500 #### [facility] [address] [place], [address] Glucose [Mass/Vol] 115 mg/dL High 70-99 [facility] Comment on above: Order Comment: FOR V ANCOMYCIN DOSING, LAST SCR FROM 09/09 Performed By: #### L 500.2500 #### [facility] [address] [place], [address] Potassium [Moles/Vol] 3.6 mmol/L Normal 3.3-5.1 [facility] Comment on above: Order Comment: FOR V ANCOMYCIN DOSING, LAST SCR FROM 09/09 Performed By: #### L 500.2500 #### [facility] [address] [place], [address] Sodium [Moles/Vol] 139 mmol/L Normal 133-145 [facility] Comment on above: Order Comment: FOR V ANCOMYCIN DOSING, LAST SCR FROM 09/09 Performed By: #### L 500.2500 #### [facility] [address] [place], [address] Urea nitrogen [Mass/Vol] 14 mg/dL Normal 4-19 [facility] Comment on above: Order Comment: FOR V ANCOMYCIN DOSING, LAST SCR FROM 09/09 Performed By: #### L 500.2500 #### [facility] [address] [place], [address] BUN Normal 4-19 [facility] Comment on above: Result Comment: Canc elled via OM: Order edited - Discontinuing original order Performed By: #### L 500.2500 #### [facility] [address] [place], [address] BUN/CRE Normal 10-20 [facility] Comment on above: Result Comment: Canc elled via OM: Order edited - Discontinuing original order Performed By: #### L 500.2500 #### [facility] [address] [place], [address] Calcium Normal 7.6-11.0 [facility] Comment on above: Result Comment: Canc elled via OM: Order edited - Discontinuing original order Performed By: #### L 500.2500 #### [facility] [address] [place], [address] CL Normal 98-108 [facility] Comment on above: Result Comment: Canc elled via OM: Order edited - Discontinuing original order Performed By: #### L 500.2500 #### [facility] [address] [place], [address] CO2 Normal 21.0-32.0 [facility] Comment on above: Result Comment: Canc elled via OM: Order edited - Discontinuing original order Performed By: #### L 500.2500 #### [facility] [address] [place], [address] CREAT,SERUM Normal 0.70-1.20 [facility] Comment on above: Result Comment: Canc elled via OM: Order edited - Discontinuing original order Performed By: #### L 500.2500 #### [facility] [address] [place], [address] eGFR Normal >60 [facility] Comment on above: Result Comment: Canc elled via OM: Order edited - Discontinuing original order Performed By: #### L 500.2500 #### [facility] [address] [place], [address] GAP Normal 5-15 [facility] Comment on above: Result Comment: Canc elled via OM: Order edited - Discontinuing original order Performed By: #### L 500.2500 #### [facility] [address] [place], [address] GLU Normal 70-99 [facility] Comment on above: Result Comment: Canc elled via OM: Order edited - Discontinuing original order Performed By: #### L 500.2500 #### [facility] [address] [place], [address] Potassium Normal 3.3-5.1 [facility] Comment on above: Result Comment: Canc elled via OM: Order edited - Discontinuing original order Performed By: #### L 500.2500 #### [facility] [address] [place], [address] Basic Metabolic Profile (BMP) Normal 133-145 [facility] Comment on above: Result Comment: Canc elled via OM: Order edited - Discontinuing original order Performed By: #### L 500.2500 #### [facility] [address] [place], [address] Urine Cultureon 09-11-2024 URC Culture exhibits no growth. Normal [facility] Comment on above: Performed By: #### L 500.2500 #### [facility] [address] [place], [address] Ammoniaon 09-10-2024 Ammonia (P) [Moles/Vol] 16.2 umol/L Normal 16-60 [facility] Comment on above: Performed By: #### L 503.5510, L503.6005, L509.7001, L500.3400, M200.1000 #### [facility] [address] [place], [address] CTA Chst, Abd, Pel W and/or WOon 09-10-2024 CTA Chst, Abd, Pel W and/or WO [facility] Imaging Services [address] [place] [address] CTA Chst, Abd, Pel W and/or WO MR#: [id number] Acct: [id number] Name: MARKUS STRATTON Rep #: [id number] : 1955 M 69 From: Lenny chadwick MD PCP: Dr. Christo Warren MD Status: ADM IN Study: CTA Chst, Abd, Pel W and/or WO Date of Exam: 0 09/10/24 Exam# [id number] Ordering Dr: Derrek Chauhan DO PROCEDURE: CTA CHST, ABD, PEL W AND/OR WO 09/10/2024 REASON FOR EXAM: SEPSIS TECHNIQUE: CTA CHST, ABD, PEL W AND/OR WO coronal and Sagittal reconstruction series were provided. One or more dose reduction techniques were used (e.g., Automated exposure control, adjustment of the mA and/or kV according to patient size, use of iterative reconstruction technique. CONTRAST: Isovue-350 VOLUME: 100 mL RADIATION DOSE SUMMARY: CTDlvol: 17.39 mGy DLP: 1508 mGycm COMPARISON: 09/09/2024. FINDINGS: Fat containing right inguinal hernia without incarceration. Hepatomegaly with hepatic steatosis. Mild prostatomegaly. Right renal simple cyst measuring 3.5 cm. Mild diffuse spondylosis. Normal enhancement of the main pulmonary artery and right and left pulmonary arteries. Normal enhancement of the bilateral peripheral pulmonary arteries. There is no demonstrated pulmonary embolism. Normal thoracic aorta and visualized great vessels. There is no demonstrated aortic dissection. Normal heart and pericardium. Normal mediastinum. Normal hilar regions. Normal visualized trachea and bronchi. The lungs are well expanded. Normal pulmonary parenchyma. Normal pleura. Normal gallbladder and extrahepatic biliary system. Normal spleen. Normal pancreas. Normal bilateral adrenal glands. Normal size of the right kidney. There is no right renal mass. There are no right renal calculi. There is no right hydronephrosis. Normal visualized right ureter. Normal size of the left kidney. There is no left renal mass. There are no left renal calculi. There is no left hydronephrosis. Normal visualized left ureter. Normal visualized stomach. Normal small intestine. Normal colon. The appendix is visualized and appears normal. There is no demonstrated peritoneal fluid. Normal abdominal aorta. Normal inferior vena cava. Normal retroperitoneum. Normal urinary bladder. There is no pelvic mass lesion or lymphadenopathy. There is no pelvic fluid. CT/CTA Chst, Abd, Pel W and/or WO IMPRESSION: Fat containing right inguinal hernia without incarceration. Hepatomegaly with hepatic steatosis. Mild prostatomegaly. Right renal simple cyst measuring 3.5 cm. Mild diffuse spondylosis. Reading Location: [id number] CC: Dr. Christo Warren MD; Derrek Chauhan DO Consulting Sales Executive: Signed Normal [facility] Calculated very low density lipoprotein (VLDL) cholesterol measurementOrdered By: Camden Reyna on 09-10-2024 Calculated very low density lipoprotein (VLDL) cholesterol measurement 14 mg/dL 5-40 [facility] Emergency Department Summary on 09-10-2024 Emergency Department Summary [facility] Medical Records Department [address] [place] [address] Emergency Department Summary 09/10/24 MR#: [id number] Acct: [id number] Name: MARKUS STRATTON Rep #: [id number] : 1955 69 From: Derrek Chauhan DO PCP: Dr. Christo Warren MD Status:ADM IN Location: [address] History of Present Illness Chief Complaint: Confusion Informant: patient and family Narrative Narrative: Patient is a 69-year-old male with past medical history of Parkinson's disease. According to family he told them that he did not feel well and left work early. Family states that they went to check on the patient as he lives alone and he seemed confused from his baseline. They state that he is also been having frequent urination. Family reports that it is unknown if he has been taking his medication as directed. However because of his increased confusion and fatigue they have concern for potential infection and he was brought in for evaluation Upon arrival to the ER the patient is awake alert and oriented to person place and time. He states that he feels tired at this time but otherwise has no complaints [facility] Medical History Non-smoker Family history of malignant neoplasm of colon in relative diagnosed when younger than 50 years of age Parkinson disease Home Medications ???Medication ???Instructions ???Recorded ???Last Taken ???Type carbidopa 10 mg-levodopa 100 mg 1 tab PO TID Anti parkinsons 01/0409/08/24 History tablet pramipexole 0.5 mg tablet 0.5 mg PO QHS Antiparkinsons 01/0409/08/24 History gabapentin 300 mg capsule 300 mg PO .evening Neuropathy 08/2309/08/24 History Allergy/AdvReac Type Severity Reaction Status Date / Time No Known Allergies Allergy Verified 09/10/24 02:49 Family History Daughter Colon cancer, Onset Age: 19 At age 19yrs, Treated at [facility] and survives Surgical History History of carpal tunnel surgery of right wrist History of carpal tunnel surgery of left wrist History of colonoscopy Social History current occupational status: employed current occupation: [employer] Smoking Status: Never smoker substance use type: does not use ROS ROS ED Constitutional Constitutional ED: Reports other Details: Positive fatigue ; Denies chills or fever(s) Eyes Eyes: Denies change in vision ENT ENT ED: Denies rhinorrhea or sore throat Cardiovascular Cardiovascular: Denies chest pain Respiratory/Chest Respiratory/Chest: Denies cough or dyspnea Gastrointestinal Gastrointestinal: Denies abdominal pain, diarrhea, nausea or vomiting Genitourinary Genitourinary ED: Reports urinary frequency; Denies dysuria Musculoskeletal Musculoskeletal: Denies myalgias Integumentary Denies rash Neurologic Neurologic: Reports headache(s) and weakness Hematologic/Lymphatic Hematologic/Lymphatic: Denies easy bleeding or easy bruising EXAM Physical Exam Const Vital Signs: 09/09/24 21:54 09/09/24 21:58 09/09/24 22:54 Temperature 103.1 F H 103.1 F H Temperature Source Oral Oral Pulse Rate 108 H 108 H Respiratory Rate 24 H 24 H Blood Pressure 166/107 H 166/107 H 150/81 H Blood Pressure Mean 126 126 104 Pulse Ox 93 93 Oxygen Delivery Method Room Air Room Air 09/09/24 22:58 09/09/24 23:15 09/09/24 23:57 Temperature 101.8 F H Temperature Source Oral Pulse Rate 102 H 103 H Respiratory Rate 33 H 35 H Blood Pressure 150/81 H Blood Pressure Mean 104 Pulse Ox 94 Oxygen Delivery Method Room Air Room Air 09/10/24 00:00 09/10/24 00:00 09/10/24 00:00 Temperature 101.8 F H Temperature Source Oral Pulse Rate 101 H 101 H 103 H Respiratory Rate 37 H 43 H Blood Pressure 140/69 H Blood Pressure Mean 92 Pulse Ox 94 Oxygen Delivery Method Room Air 09/10/24 00:15 09/10/24 00:27 09/10/24 00:30 Temperature Temperature Source Pulse Rate 104 H 105 H 102 H Respiratory Rate 30 H 37 H 38 H Blood Pressure 150/81 H 140/69 H Blood Pressure Mean 100 88 Pulse Ox 94 Oxygen Delivery Method 09/10/24 00:47 09/10/24 01:00 09/10/24 01:00 Temperature 99.7 F H Temperature Source Oral Pulse Rate 97 94 Respiratory Rate 22 H 18 Blood Pressure 160/96 H 156/142 H Blood Pressure Mean 117 148 Pulse Ox 96 Oxygen Delivery Method Room Air 09/10/24 01:06 09/10/24 01:08 09/10/24 01:13 Temperature 99.7 F H Temperature Source Pulse Rate 92 93 91 Respiratory Rate 31 H 27 H 30 H Blood Pressure 160/96 H 160/9 (more content not included)... Normal [facility] H AND P Exam - Hospitaliston 09-10-2024 H&P Exam - Hospitalist [facility] Medical Records Department [address] [place] [address] H P Exam - Hospitalist 09/10/24 0100 MR#: [id number] Acct: [id number] Name: MARKUS STRATTON Rep #: [id number] : 1955 69 From: Camden Zelaya DO PCP: Dr. Christo Warren MD Status:ADM IN Location: [place] [address] HPI - General General Date of Admission: 09/10/24 Date of Service: 09/10/24 Chief Complaint: Fever and AMS. HPI Narrative MARKUS STRATTON, is a 69 M with a past medical history of hyperlipidemia; on atorvastatin, obesity; with BMI of 34.5 this admission, Parkinson's disease; on carbidopa-levodopa and pramipexole, history of colonic polyps; s/p polypectomy (2018), history of CTS; s/p bilateral release and OA who presents to [facility] ER complaining of fever and altered mental status. Mr. Stratton is not a fully-reliable historian at this time so information was gathered from chart, medical staff, computer and his daughter at the bedside. According to the records he became sick approximately 1-1/2 days ago with fever and malaise followed by intermittent bladder spasms. Then later on the evening of September 09, 2024 he became acutely confused unable to speak prompting his family to bring him in for further evaluation and treatment. In the ER he was noted to have a UA positive for Acute Cystitis; with microscopic complicated by fever 101.8 ???F, sinus tachycardia of 101 bpm, tachypnea of 35 breaths/min, Leukocytosis of 12K and Elevated Procalcitonin of 0.94 ng/mL all present on admission concerning for possible Sepsis complicated by clinical evidence of Acute Metabolic Encephalopathy and Generalized Weakness in the setting of previously known Parkinson's disease. He was then admitted to the PCU for treatment under the sepsis protocol for stay that is expected to extend beyond 2 midnights. [facility] Medical History Non-smoker Family history of malignant neoplasm of colon in relative diagnosed when younger than 50 years of age Parkinson disease Home Medications ???Medication ???Instructions ???Recorded ???Last Taken ???Type carbidopa 10 mg-levodopa 100 mg 1 tab PO TID Anti parkinsons 01/0409/08/24 History tablet pramipexole 0.5 mg tablet 0.5 mg PO QHS Antiparkinsons 01/0409/08/24 History gabapentin 300 mg capsule 300 mg PO .evening Neuropathy 08/2309/08/24 History Allergy/AdvReac Type Severity Reaction Status Date / Time No Known Allergies Allergy Verified 09/10/24 02:49 Family History Daughter Colon cancer, Onset Age: 19 At age 19yrs, Treated at [facility] and survives Surgical History History of carpal tunnel surgery of right wrist History of carpal tunnel surgery of left wrist History of colonoscopy Social History current occupational status: employed current occupation: [employer] Smoking Status: Never smoker substance use type: does not use ROS ROS Narrative Review of Systems: Constitutional: Patient admits to fever and chills. Eyes: Patient denies change in vision or discharge from eyes. ENT: Patient denies runny nose, sore throat or ear pain. Resp: Patient admits to tachypnea and shortness of breath as per HPI. CV: Patient admits to edema but he denies chest pain, palpitations or heart racing. GI: Patient denies abdominal pain, nausea, vomiting, diarrhea or constipation. : Patient admits to urinary frequency. MSK: Patient admits to generalized weakness and stiffness due to Parkinson's disease. Skin: Patient denies rash, abscess, wounds or jaundice. Psych: Patient denies symptoms of uncontrolled depression or anxiety. Neuro: Patient admits to chronic generalized weakness and stiffness with masked facies 2/2 Parkinson's. Allergy: Patient denies runny nose, sore throat or ear pain. Hematology: Patient denies easy bleeding or easy bruisability. Endocrinology: Patient denies polydipsia, polyphagia or heat/cold intolerance. 14 point ROS otherwise negative except for positives noted above in HPI. Vital Signs Vital Signs Vital Signs: 09/09/24 21:54 09/09/24 21:58 09/09/24 22:54 Temperature 103.1 F H 103.1 F H Temperature Source Oral Oral Pulse Rate 108 H 108 H Respiratory Rate 24 H 24 H Blood Pressure 166/107 H 166/107 H 150/81 H Blood Pressure Mean 126 126 104 Pulse Ox 93 93 Oxygen Delivery Method Room Air Room Air 09/09/24 22:58 09/09/24 23:15 09/10/24 00:00 Temperature 101.8 F H 101.8 F H Temperature Source Oral Oral Pulse Rate 102 H 101 H Respiratory Rate 33 H 37 H Blood Pressure 150/81 H 140/69 H Blood Pressure (more content not included)... Normal [facility] Hemoglobin A1con 09-10-2024 HbA1c (Bld) [Mass fraction] 6.1 % High <=5.6 [facility] Comment on above: Result Comment: Norm al < 5.7 % Prediabetic 5.7 - 6.4 % Diabetic >or= 6.5 % Please note range changes. Performed By: #### L 500.2500 #### [facility] [address] [place], [place] [address], [address] Hemoglobin A1c percentageOrd ered By: Camden Reyna on 09-10-2024 HbA1c (Bld) [Mass fraction] 6.1 % High <5.7 [facility] Comment on above: Normal < 5.7 % Predi abetic 5.7 - 6.4 % Diabetic >or= 6.5 % Please note range changes. LDL calc ser/plasOrdered By: Camden Reyna on 09-10-2024 Cholesterol in LDL [Mass/Vol] 82 mg/dL [facility] Comment on above: Jwukpggvyz=725-889 m g/dL & Higher Lmpd=537 mg/dL or greater Lactic Acidon 09-10-2024 Lactate [Moles/Vol] 1.5 mmol/L Normal 0.0-2.0 [facility] Comment on above: Order Comment: FOR V ANCOMYCIN DOSING, LAST SCR FROM 09/09 Performed By: #### L 500.2500 #### [facility] [address] [place], [place], [id number] Lactic acid measurementOrder ed By: Camden Reyna on 09-10-2024 Lactate [Moles/Vol] 1.5 mmol/L 0.0-2.0 [facility] Lipid Profileon 09-10-2024 CHOL:HDL 3.10 Normal [facility] Comment on above: Performed By: #### L 500.4100 #### [facility] [address] [place], [place], [id number] Cholesterol [Mass/Vol] 142 mg/dL Normal <=200 [facility] Comment on above: Result Comment: Chol esterol level, Desirable <200 mg/dL Borderline high cholesterol 200-239 mg/dL High cholesterol >=240 mg/dL Recommendations of the NCEP Adult Treatment Panel for the following risk-cutoff thresholds for the [place] population. Performed By: #### L 500.4100 #### [facility] [address] [place], [place], [id number] Cholesterol in HDL [Mass/Vol] 46 mg/dL Normal [facility] Comment on above: Result Comment: Felicit[place] onal Cholesterol Education Program (NCEP) guidelines: <40 mg/dL: Low HDL-cholesterol (major risk factor for CHD) >= 60 mg/dL: High HDL-cholesterol (negative risk factor for CHD) HDL-cholesterol is affected by a number of factors, e.g. smoking, exercise, hormones, sex and age. Performed By: #### L 500.4100 #### [facility] [address] [place], [address] Cholesterol in LDL [Mass/Vol] 82 mg/dL Normal [facility] Comment on above: Result Comment: Bord nlxrks=825-625 mg/dL Higher Cwjd=068 mg/dL or greater Performed By: #### L 500.4100 #### [facility] Laboratory [address] [place], [address] Cholesterol in VLDL [Mass/Vol] 14 mg/dL Normal 5-40 [facility] Comment on above: Performed By: #### L 500.4100 #### [facility] [address] [place], [address] Triglyceride [Mass/Vol] 72 mg/dL Normal [facility] Comment on above: Result Comment: The drugs N-Acetylcysteine and Metamizole may falsely depress this assay. Normal range: <150 mg/dL Borderline High: 150-199 mg/dL High: 200-499 mg/dL Very High: >500 mg/dL Performed By: #### L 500.4100 #### [facility] [address] [place], [address] M100.678on 09-10-2024 M100.678 Pending SARS-CoV-2 (COVID 19) Negative INFLUENZA A Negative INFLUENZA B Negative RSV PCR Negative Normal [facility] Comment on above: Performed By: #### L 500.2500 #### [facility] [address] [place], [address] Screening total cholesterol/ high density lipoprotein (HDL) cholesterol ratioOrdered By: Camden Reyna on 09-10-2024 Cholesterol.total/Chol esterol in HDL [Mass ratio] 3.10 {ratio} [facility] Serum or plasma cholesterol in HDL measurement (mass/volume)Ordered By: Camden Reyna on 09-10-2024 Cholesterol in HDL [Mass/Vol] 46 mg/dL >40 [facility] Comment on above: National Cholesterol Education Program (NCEP) guidelines:<40 mg/dL: Low HDL-cholesterol (major risk factor for CHD)>= 60 mg/dL: High HDL-cholesterol (negative risk factor for CHD)HDL-cholesterol is affected by a number of factors, e.g. smoking, exercise, hormones, sex and age. Serum or plasma cholesterol measurement (mass/volume)Ordered By: Camden Reyna on 09-10-2024 Cholesterol [Mass/Vol] 142 mg/dL <201 [facility] Comment on above: Cholesterol level, D esirable <200 mg/dLBorderline high cholesterol 200-239 mg/dLHigh cholesterol >=240 mg/dLRecommendations of the NCEP Adult Treatment Panel for the following risk-cutoff thresholds for the [place] population. TSH DL <= 0.005 mIU/L QnOrde red By: Camden Reyna on 09-10-2024 TSH Qn 1.130 uIU/mL 0.300-4.200 [facility] Thyroid Stim Hormone (TSH)on 09-10-2024 TSH 1.130 uIU/mL Normal 0.300-4.200 [facility] Comment on above: Performed By: #### L 500.2500 #### [facility] [address] [facility] [place], [place], [id number] Triglycerides measurementOrd ered By: Camden Reyna on 09-10-2024 Triglyceride [Mass/Vol] 72 mg/dL <199 [facility] Comment on above: The drugs N-Acetylcy steine and Metamizole may falsely depress this assay. Normal range: <150 mg/dLBorderline High: 150-199 mg/dLHigh: 200-499 mg/dLVery High: >500 mg/dL Vitamin B12on 09-10-2024 Cobalamin (Vitamin B12) [Mass/Vol] 505 pg/mL Normal 180-914 [facility] Comment on above: Performed By: #### L 500.2500 #### [facility] Laboratory [address] [facility] [place], [place], [id number] Vitamin B12 ser/plasOrdered By: Camden Reyna on 09-10-2024 Cobalamin (Vitamin B12) [Mass/Vol] 505 pg/mL 180-914 [facility] 12 Lead EKGon 09-09-2024 12 Lead EKG [facility] Cardiovascular Services [address] [place] [address] 12 Lead EKG 09/09/24 2317 MR#: [id number] Acct: [id number] Name: MARKUS STRATTON Rep #: [id number] : 1955 69 From: Mohan Howard MD Attending Dr: Dr. Andrade Arango DO Status: DIS IN Ordering Dr: Derrek Chauhan DO Date: 09/09/24 Location: [facility] Sex: M C Admitted: 09/10/24 Test Reason : DYSRHYTHMIA Blood Pressure : */* mmHG Vent. Rate : 103 BPM Atrial Rate : 103 BPM P-R Int : 216 ms QRS Dur : 84 ms QT Int : 330 ms P-R-T Axes : 33 -23 16 degrees QTcB Int : 432 ms Sinus tachycardia with 1st degree A-V block Minimal voltage criteria for LVH, may be normal variant ( R in aVL ) Borderline ECG Confirmed by Mohan Howard ([id number]), index editor ALLISON ZUÑIGA ([id number]) on 09/14/2024 11:34:40 AM Referred By: Confirmed By: Mohan Howard 09/14/24 1134 Date Mohan Howard MD CC: Dr. Andrade Arango DO; Dr. Christo Warren MD; Derrek Chauhan DO Signed Normal [facility] Absolute lymphocyte countOrd ered By: ED PROVIDER on 09-09-2024 Lymphocytes Auto (Unsp spec) [#/Vol] 0.68 10*3/uL Low 0.83-4.51 [facility] Absolute neutrophil countOrd ered By: ED PROVIDER on 09-09-2024 Neutrophils (Bld) [#/Vol] 10.2 10*3/uL High 2.0-7.7 [facility] Anion gap in Serum or Plasma Ordered By: Derrek Chauhan on 09-09-2024 Anion gap [Moles/Vol] 15 mmol/L 5-15 [facility] Automated lymphocyte count a s percentage of total leukocytesOrdered By: ED PROVIDER on 09-09-2024 Lymphocytes/100 WBC Auto (Unsp spec) 5.7 % Low 19-41 [facility] BUN/creatinine ratioOrdered By: Derrek Chauhan on 09-09-2024 Urea nitrogen/Creatinine [Mass ratio] 9.4 mg/mg Low 10-20 [facility] Basic Metabolic Profile (BMP )on 09-09-2024 BUN/CRE 9.4 RATIO Low 10-20 [facility] Comment on above: Performed By: #### L 100.0100, L300.3900, L500.2500 #### [facility] Laboratory [address] [place], [address] Calcium [Mass/Vol] 9.2 mg/dL Normal 7.6-11.0 [facility] Comment on above: Performed By: #### L 100.0100, L300.3900, L500.2500 #### [facility] [address] [place], [address] Chloride [Moles/Vol] 100 mmol/L Normal 98-108 [place] Comment on above: Performed By: #### L 100.0100, L300.3900, L500.2500 #### [facility] [address] [place], [address] CO2 [Moles/Vol] 20.0 mmol/L Low 21.0-32.0 [facility] Comment on above: Performed By: #### L 100.0100, L300.3900, L500.2500 #### [facility] Laboratory [address] [place], [address] Creatinine [Mass/Vol] 1.36 mg/dL High 0.70-1.20 [facility] Comment on above: Performed By: #### L 100.0100, L300.3900, L500.2500 #### [facility] [address] [place], [address] ECRCL 50.34 ml/min Normal 50-250 [facility] Comment on above: Performed By: #### L 100.0100, L300.3900, L500.2500 #### [facility] [address] [place], [address] GAP 15 Normal 5-15 [facility] Comment on above: Performed By: #### L 100.0100, L300.3900, L500.2500 #### [facility] Laboratory [address] [place], [address] GFR/1.73 sq M.predicted among non-blacks MDRD (S/P/Bld) [Vol rate/Area] 56 mL/min/{1.73_m2} Low >60 [facility] Comment on above: Result Comment: mL/m in/1.73m2 CKD-EPI Creatinine Equation (2020) Performed By: #### L 100.0100, L300.3900, L500.2500 #### [facility] Laboratory [address] [place], [address] Glucose [Mass/Vol] 139 mg/dL High 70-99 [facility] Comment on above: Performed By: #### L 100.0100, L300.3900, L500.2500 #### [facility] [address] [place], [address] Potassium [Moles/Vol] 4.0 mmol/L Normal 3.3-5.1 [facility] Comment on above: Performed By: #### L 100.0100, L300.3900, L500.2500 #### [facility] [address] [place], [address] Sodium [Moles/Vol] 135 mmol/L Normal 133-145 [facility] Comment on above: Performed By: #### L 100.0100, L300.3900, L500.2500 #### [facility] [address] [place], [address] Urea nitrogen [Mass/Vol] 13 mg/dL Normal 4-19 [facility] Comment on above: Performed By: #### L 100.0100, L300.3900, L500.2500 #### [facility] Laboratory [address] [place], [address] Basophil percentageOrdered B y: ED PROVIDER on 09-09-2024 Basophils/100 WBC (Bld) 0.5 % 0-1 [facility] Bilirubin Test strip Ql (U)O rdered By: Derrek Chauhan on 09-09-2024 Bilirubin Ql (U) Negative Negative [facility] Bilirubin directOrdered By: Derrek Chauhan on 09-09-2024 Bilirubin.direct [Mass/Vol] 0.70 mg/dL High 0.00-0.30 [facility] Bilirubin, totalOrdered By: Derrek Chauhan on 09-09-2024 Bilirubin [Mass/Vol] 1.85 mg/dL High 0.00-1.30 [facility] CBC W/Diff, Automatedon 08-22 Absolute Lymph 0.68 X10 3/uL Low 0.83-4.51 [facility] Comment on above: Performed By: #### L 100.0100, L300.3900, L500.2500 #### [facility] Laboratory [address] [place], [address] Absolute Neut 10.2 X10 3/uL High 2.0-7.7 [facility] Comment on above: Performed By: #### L 100.0100, L300.3900, L500.2500 #### [facility] [address] [place], [address] Basophils/100 WBC (Bld) 0.5 % Normal 0-1 [facility] Comment on above: Performed By: #### L 100.0100, L300.3900, L500.2500 #### [facility] [address] [place], [address] Eosinophils/100 WBC (Bld) 0.0 % Normal 0-5 [facility] Comment on above: Performed By: #### L 100.0100, L300.3900, L500.2500 #### [facility] [address] [place], [address] Erythrocyte distribution width (RBC) [Ratio] 13.1 % Normal 11.6-14.6 [facility] Comment on above: Performed By: #### L 100.0100, L300.3900, L500.2500 #### [facility] [address] [place], [address] Hematocrit (Bld) [Volume fraction] 42.7 % Normal 40-54 [facility] Comment on above: Performed By: #### L 100.0100, L300.3900, L500.2500 #### [facility] [address] [place], [address] Hemoglobin (Bld) [Mass/Vol] 14.6 g/dL Normal 13.0-16.5 [facility] Comment on above: Performed By: #### L 100.0100, L300.3900, L500.2500 #### [facility] [address] [place], [address] IG% 0.500 Normal 0.0-0.9 [facility] Comment on above: Result Comment: IG% - Immature Granulocytes (promyelocytes, myelocytes and metamyelocytes) > 1% indicates that a LEFT SHIFT is Present. Performed By: #### L 100.0100, L300.3900, L500.2500 #### [facility] [address] [place], [address] Lymphocytes/100 WBC (Bld) 5.7 % Low 19-41 [facility] Comment on above: Performed By: #### L 100.0100, L300.3900, L500.2500 #### [facility] [address] [place], [address] MCH (RBC) [Entitic mass] 29.0 pg Normal 27.0-32.0 [facility] Comment on above: Performed By: #### L 100.0100, L300.3900, L500.2500 #### [facility] Laboratory [address] [place], [address] MCHC (RBC) [Mass/Vol] 34.2 g/dL Normal 32-36 [facility] Comment on above: Performed By: #### L 100.0100, L300.3900, L500.2500 #### [facility] [address] [place], [address] MCV (RBC) [Entitic vol] 84.7 fL Normal 80-94 [facility] Comment on above: Performed By: #### L 100.0100, L300.3900, L500.2500 #### [facility] Laboratory [address] [place], [address] Monocytes/100 WBC (Bld) 8.3 % Normal 0-10 [facility] Comment on above: Performed By: #### L 100.0100, L300.3900, L500.2500 #### [facility] Laboratory [address] [place], [address] Neutrophils/100 WBC (Bld) 85.0 % High 47-70 [facility] Comment on above: Performed By: #### L 100.0100, L300.3900, L500.2500 #### [facility] Laboratory [address] [place], [address] Nucleated RBC (Bld) [#/Vol] 0 10*3/uL Normal 0-5 [facility] Comment on above: Performed By: #### L 100.0100, L300.3900, L500.2500 #### [facility] Laboratory [address] [place], [address] Platelet mean volume (Bld) [Entitic vol] 10.7 fL Normal 6.2-12.0 [facility] Comment on above: Performed By: #### L 100.0100, L300.3900, L500.2500 #### [facility] Laboratory [address] [place], [address] Platelets (Bld) [#/Vol] 198 10*3/uL Normal 150-450 [facility] Comment on above: Performed By: #### L 100.0100, L300.3900, L500.2500 #### [facility] [address] [place], [address] RBC (Bld) [#/Vol] 5.04 10*6/uL Normal 4.6-6.2 [facility] Comment on above: Performed By: #### L 100.0100, L300.3900, L500.2500 #### [facility] [address] [place], [address] RDW SD 40.3 fl Normal 35.1-43.9 [facility] Comment on above: Performed By: #### L 100.0100, L300.3900, L500.2500 #### [facility] [address] [place], [address] WBC (Bld) [#/Vol] 12.0 10*3/uL High 4.4-11.0 [facility] Comment on above: Performed By: #### L 100.0100, L300.3900, L500.2500 #### [facility] [address] [place], [address] Carbon dioxide, total [Moles /volume] in Central venous bloodOrdered By: Derrek Chauhan on 09-09-2024 CO2 [Moles/Vol] 20.0 mmol/L Low 21.0-32.0 [facility] Chest 1 View (Portable)on Chest 1 View (Portable) [facility] Imaging Services [address] [place] [address] Chest 1 View (Portable) MR#: [id number] Acct: [id number] Name: MARKUS STRATTON Rep #: [id number] : 1955 M 69 From: Lenny chadwick MD PCP: Dr. Christo Warren MD Status: PRE ER Study: Chest 1 View (Portable) Date of Exam: 09/09/24 Exam# [id number] Ordering Dr: Derrek Chauhan DO PROCEDURE: CHEST 1 VIEW (PORTABLE) 09/09/2024 REASON FOR EXAM: FEVER TECHNIQUE: Frontal view of the chest. COMPARISON: None FINDINGS: The lungs are expanded. There is no demonstrated parenchymal abnormality. There is no demonstrated pleural abnormality. The heart is enlarged. Normal mediastinum and mone. Normal visualized pulmonary arteries. Normal visualized aortic arch and descending thoracic aorta. Normal visualized thoracic spine. Normal visualized ribs, clavicles, and shoulders. There is no demonstrated abnormality of the visualized soft tissue structures of the upper abdomen. RAD/Chest 1 View (Portable) IMPRESSION: Cardiomegaly. No acute process. Reading Location: [place] [address] CC: Dr. Christo Warren MD; Derrek Chauhan DO Consulting Sales Executive: Signed Normal [facility] Chloride assayOrdered By: Tosha Chauhan on 09-09-2024 Chloride [Moles/Vol] 100 mmol/L 98-108 [place] Eosinophil percentageOrdered By: ED PROVIDER on 09-09-2024 Eosinophils/100 WBC (Bld) 0.0 % 0-5 [facility] Erythrocyte distribution wid th ratioOrdered By: ED PROVIDER on 09-09-2024 Erythrocyte distribution width (RBC) [Ratio] 13.1 % 11.6-14.6 [facility] Erythrocyte distribution wid th standard deviationOrdered By: ED PROVIDER on 09-09-2024 Erythrocyte distribution width (RBC) [Ratio] 40.3 fl 35.1-43.9 [facility] Glomerular filtration rate ( GFR) estimation/1.73 sq m using serum, plasma, or whole bOrdered By: Derrek Chauhan on 09-09-2024 GFR/1.73 sq M.predicted among non-blacks MDRD (S/P/Bld) [Vol rate/Area] 56 mL/min/{1.73_m2} Low >60 [facility] Comment on above: mL/min/1.73m2 CKD-EP I Creatinine Equation (2020) Hematocrit Auto (Bld) [Volum e fraction]Ordered By: ED PROVIDER on 09-09-2024 Hematocrit (Bld) [Volume fraction] 42.7 % 40-54 [facility] Hemoglobin measurementOrdere d By: ED PROVIDER on 09-09-2024 Hemoglobin (Bld) [Mass/Vol] 14.6 g/dL 13.0-16.5 [facility] Immature granulocytes/100 WB C Auto (Bld)Ordered By: ED PROVIDER on 09-09-2024 Immature granulocytes/100 WBC (Bld) 0.500 % 0.0-0.9 [facility] Comment on above: IG% - Immature Granu locytes (promyelocytes, myelocytes and metamyelocytes) > 1% indicates that a LEFT SHIFT is Present. Influenza virus A and B and SARS-CoV-2 (COVID-19) and Respiratory syncytial virus RNAOrdered By: Derrek Chauhan on 09-09-2024 SARS-CoV-2 (COVID-19) RNA FLORESITA+probe Ql (Unsp spec) [facility] International normalized rat io (INR) calculationOrdered By: Derrek Chauhan on 09-09-2024 INR Coag (Bld) [Relative time] 1.1 {INR} [facility] Ketones Test strip Ql (U)Ord ered By: Derrek Chauhan on 09-09-2024 Ketones Ql (U) 50 mg/dl High Negative [facility] L509.7001on 09-09-2024 Procalcitonin 0.94 ng/mL High <=0.10 [facility] Comment on above: Result Comment: Inte rpretation: <0.10-0.25 ng/mL: Antibiotic therapy discouraged. Bacterial infection unlikely. 0.25-0.50 ng/mL: Antibiotic therapy encouraged. Bacterial infection possible. >0.50 ng/mL: Antibiotic therapy strongly encouraged. Suggestive of presence of bacterial infection. PCT should always be interpreted in the clinical context of the patient. Therefore, clinicians should use the PCT results in conjunction with other laboratory findings and clinical signs of the patient. Performed By: #### L 503.5243, L503.6005, L509.7001, L500.3400, M200.1000 #### [facility] [address] [place], [address] Laboratory - Chemistry and C hemistry - challengeOrdered By: Derrek Chauhan on 09-09-2024 AST [Catalytic activity/Vol] 37 U/L <38 [facility] Lactic Acidon 09-09-2024 Lactate [Moles/Vol] 1.7 mmol/L Normal 0.0-2.0 [facility] Comment on above: Order Comment: Y Performed By: #### L 503.5510, L503.6005, L509.7001, L500.3400, M200.1000 #### [facility] [address] [place], [place], [id number] Lactic acid measurementOrder ed By: Derrek Chauhan on 09-09-2024 Lactate [Moles/Vol] 1.7 mmol/L 0.0-2.0 [facility] Liver Profileon 09-09-2024 Albumin [Mass/Vol] 4.2 g/dL Normal 3.4-4.8 [facility] Comment on above: Performed By: #### L 503.5510, L503.6005, L509.7001, L500.3400, M200.1000 #### [facility] [address] [place], [place], [address] ALK PHOS 74 U/L Normal 40-129 [facility] Comment on above: Performed By: #### L 503.5510, L503.6005, L509.7001, L500.3400, M200.1000 #### [facility] [address] [place], [address] ALT [Catalytic activity/Vol] 39 U/L Normal <=46 [facility] Comment on above: Performed By: #### L 503.5510, L503.6005, L509.7001, L500.3400, M200.1000 #### [facility] [address] [place], [address] AST [Catalytic activity/Vol] 37 U/L Normal <=37 [facility] Comment on above: Performed By: #### L 503.5510, L503.6005, L509.7001, L500.3400, M200.1000 #### [facility] Laboratory [address] [place], [address] Bilirubin [Mass/Vol] 1.85 mg/dL High 0.00-1.30 [facility] Comment on above: Performed By: #### L 503.5510, L503.6005, L509.7001, L500.3400, M200.1000 #### [facility] Laboratory [address] [place], [address] Bilirubin.direct [Mass/Vol] 0.70 mg/dL High 0.00-0.30 [facility] Comment on above: Performed By: #### L 503.5510, L503.6005, L509.7001, L500.3400, M200.1000 #### [facility] Laboratory [address] [place], [address] Globulin (S) [Mass/Vol] 3.0 g/dL Normal 2.2-4.2 [facility] Comment on above: Performed By: #### L 503.5510, L503.6005, L509.7001, L500.3400, M200.1000 #### [facility] Laboratory [address] [place], [address] T PROT 7.2 g/dL Normal 5.9-8.4 [facility] Comment on above: Performed By: #### L 503.5510, L503.6005, L509.7001, L500.3400, M200.1000 #### [facility] Laboratory [address] [place], [address] MCV (mean corpuscular volume ) determinationOrdered By: ED PROVIDER on 09-09-2024 MCV (RBC) [Entitic vol] 84.7 fL 80-94 [facility] Mean corpuscular hemoglobin (MCH) determinationOrdered By: ED PROVIDER on 09-09-2024 MCH (RBC) [Entitic mass] 29.0 pg 27.0-32.0 [facility] Mean corpuscular hemoglobin concentration (MCHC) determinationOrdered By: ED PROVIDER on 09-09-2024 MCHC (RBC) [Mass/Vol] 34.2 g/dL 32-36 [facility] Mean platelet volume determi nationOrdered By: ED PROVIDER on 09-09-2024 Platelet mean volume (Bld) [Entitic vol] 10.7 fL 6.2-12.0 [facility] Microscopic analysis of urin e for red blood cells (RBC)Ordered By: Derrek Chauhan on 09-09-2024 Microscopic analysis of urine for red blood cells (RBC) 50-100 SEEN /hpf 0-5 [facility] Monocyte percentageOrdered B y: ED PROVIDER on 09-09-2024 Monocytes/100 WBC (Bld) 8.3 % 0-10 [facility] Mucus LM Ql (Urine sed)Order ed By: Derrek Chauhan on 09-09-2024 Mucus Ql (Urine sed) 1+ /hpf [facility] Neutrophil percentageOrdered By: ED PROVIDER on 09-09-2024 Neutrophils/100 WBC (Bld) 85.0 % High 47-70 [facility] Nitrite Test strip Ql (U)Ord ered By: Derrek Chauhan on 09-09-2024 Nitrite Ql (U) Negative Negative [facility] Nucleated red blood cell per centageOrdered By: ED PROVIDER on 09-09-2024 Nucleated RBC/100 WBC (Bld) [Ratio] 0 % 0-5 [facility] Platelet countOrdered By: ED PROVIDER on 09-09-2024 Platelets (Bld) [#/Vol] 198 10*3/uL 150-450 [facility] Potassium measurement (mass/ volume)Ordered By: Derrek Chauhan on 09-09-2024 Potassium (Unsp spec) [Mass/Vol] 4.0 mmol/L 3.3-5.1 [facility] Procalcitonin [Mass/volume] in Serum or Plasma by ImmunoassayOrdered By: Derrek Chauhan on 09-09-2024 Procalcitonin IA [Mass/Vol] 0.94 ng/mL High <0.11 [facility] Comment on above: Interpretation:<0.10 -0.25 ng/mL: Antibiotic therapy discouraged. Bacterial infection unlikely.0.25-0.50 ng/mL: Antibiotic therapy encouraged. Bacterial infection possible.>0.50 ng/mL: Antibiotic therapy strongly encouraged. Suggestive of presence of bacterial infection.PCT should always be interpreted in the clinical context of the patient. Therefore, clinicians should use the PCT results in conjunction with other laboratory findings and clinical signs of the patient. Protein Test strip Ql (U)Ord ered By: Derrek Chauhan on 09-09-2024 Protein Ql (U) 500 mg/dl High Negative [facility] Prothrombin Time w/INRon INR Coag (PPP) [Relative time] 1.1 {INR} Normal [facility] Comment on above: Performed By: #### L 100.0100, L300.3900, L500.2500 #### [facility] Laboratory [address] [place], [address] PT Coag (PPP) [Time] 14.6 s Normal 11.7-14.9 [facility] Comment on above: Performed By: #### L 100.0100, L300.3900, L500.2500 #### [facility] Laboratory [address] [place], [address] Prothrombin timeOrdered By: Derrek Chauhan on 09-09-2024 PT Coag (PPP) [Time] 14.6 s 11.7-14.9 [place] RBC Auto (Bld) [#/Vol]Ordere d By: ED PROVIDER on 09-09-2024 RBC (Bld) [#/Vol] 5.04 10*6/uL 4.6-6.2 [facility] Serum creatinine measurement (mass/volume)Ordered By: Derrek Chauhan on 09-09-2024 Creatinine [Mass/Vol] 1.36 mg/dL High 0.70-1.20 [facility] Serum globulin measurementOr dered By: Derrek Chauhan on 09-09-2024 Globulin (S) [Mass/Vol] 3.0 g/dL 2.2-4.2 [facility] Serum glucose measurement (m ass/volume)Ordered By: Derrek Chauhan on 09-09-2024 Glucose [Mass/Vol] 139 mg/dL High 70-99 [facility] Serum or plasma alanine benz otransferase (ALT) measurementOrdered By: Derrek Chauhan on 09-09-2024 ALT [Catalytic activity/Vol] 39 U/L <47 [facility] Serum or plasma albumin phil urement (mass/volume)Ordered By: Derrek Chauhan on 09-09-2024 Albumin [Mass/Vol] 4.2 g/dL 3.4-4.8 [facility] Serum or plasma alkaline fiorella sphatase measurementOrdered By: Derrek Chauhan on 09-09-2024 ALP [Catalytic activity/Vol] 74 U/L 40-129 [facility] Serum or plasma calcium phil urement (mass/volume)Ordered By: Derrek Chauhan on 09-09-2024 Calcium [Mass/Vol] 9.2 mg/dL 7.6-11.0 [facility] Serum or plasma urea nitroge n measurement (mass/volume)Ordered By: Derrek Chauhan on 09-09-2024 Urea nitrogen [Mass/Vol] 13 mg/dL 4-19 [facility] Sodium levelOrdered By: Maico Chauhan on 09-09-2024 Sodium [Moles/Vol] 135 mmol/L 133-145 [facility] Squamous epithelial cells de tection in urine sediment by light microscopyOrdered By: Derrek Chauhan on 09-09-2024 Epithelial cells.squamous LM Ql (Urine sed) 0 SEEN /hpf 0-5 [facility] Total proteinOrdered By: Fidel Chauhan on 09-09-2024 Protein [Mass/Vol] 7.2 g/dL 5.9-8.4 [facility] [facility], Completeon 09-09 RBC 50-100 SEEN Normal 0-5 [facility] Comment on above: Order Comment: COLLE CTOR TO SPECIFY Performed By: #### L 400.0001 #### [facility] [address] [place], [address] BACTERIA 1+ /hpf Normal None Seen [facility] Comment on above: Order Comment: LOUIE CTOR TO SPECIFY Performed By: #### L 400.0001 #### [facility] [address] [place], [address] Mucus Ql (Urine sed) 1+ /hpf Normal [place] Comment on above: Order Comment: LOUIE CTOR TO SPECIFY Performed By: #### L 400.0001 #### [facility] [address] [place], [address] WBC 5-10 SEEN Normal 0-5 [facility] Comment on above: Order Comment: LOUIE CTOR TO SPECIFY Performed By: #### L 400.0001 #### [facility] [address] [place], [address] EPI,SQUAMOUS 0 SEEN Normal 0-5 [facility] Comment on above: Order Comment: LOUIE CTOR TO SPECIFY Performed By: #### L 400.0001 #### [facility] [address] [place], [address] Urine clarityOrdered By: Fidel Chauhan on 09-09-2024 Clarity (U) Sl. Cloudy Clear [facility] Urine color determinationOrd ered By: Derrek Chauhan on 09-09-2024 Color (U) Yellow Yellow [facility] Urine cultureOrdered By: Fidel Chauhan on 09-09-2024 Bacteria identified Cx Nom (U) Culture exhibits no growth. [facility] Urine glucose detectionOrder ed By: Derrek Chauhan on 09-09-2024 Glucose Ql (U) Normal mg/dl Normal [facility] Urine leukocyte esterase det ection by dipstickOrdered By: Derrek Chauhan on 09-09-2024 Leukocyte esterase Test strip Ql (U) 25 /ul High Negative [facility] Urine pHOrdered By: Derrek wills on 09-09-2024 pH (U) 6.0 [pH] 5.0 - 8.0 [facility] Urine sediment bacteria coun t by microscopy (number/high power field)Ordered By: Derrek Chauhan on 09-09-2024 Bacteria LM.HPF (Urine sed) [#/Area] 1 /[HPF] None Seen [facility] Urine specific gravity measu rementOrdered By: Drerek Chauhan on 09-09-2024 Specific gravity (U) [Rel density] 1.015 1.002-1.030 [facility] Urine urobilinogen measureme ntOrdered By: Derrek Chauhan on 09-09-2024 Urobilinogen Ql (U) 1 mg/dl High Normal [facility] Venous blood ammonia measure mentOrdered By: Derrek Chauhan on 09-09-2024 Ammonia (P) [Moles/Vol] 16.2 umol/L 16-60 [facility] White blood cell (WBC) count Ordered By: ED PROVIDER on 09-09-2024 WBC (Bld) [#/Vol] 12.0 10*3/uL High 4.4-11.0 [facility] White blood cell countOrdere d By: Derrek Chauhan on 09-09-2024 White blood cell count 5-10 SEEN /hpf 0-5 [facility] [id number] 09-06-2024 [id number] HNO ID: [id number] Author: MIS MONTGOMERY PT Service: ? Author Type: Physical Therapist Type: [id number] Filed: 09/06/2024 19:10 Note Text: [facility] Rehabilitation and Sports Therapy Physical Therapy Plan of Care Certification Patient Name: Markus Stratton : 1955 CC #: [id number] Date: 09/06/2024 To: Nikki Javier MD From [...] Planned: 6 Planned Treatment Interventions: Therapeutic exercise (07262), Neuromuscular re-education (52524), Therapeutic activities (77851), Self-half-way management (79071), Gait Training (41859), Patient/Family/Caregiver Education, Body Mechanics Training PLAN FOR [...] have reviewed the treatment plan for Markus Stratton, [facility]# [id number] for the period of 09/06/24 -- 11/05/24, established on 09/06/2024. Signature certifies the need for therapy services. Normal [facility] CNTHERAPYon 09-06-2024 CNTHERAPY OT/PT/Speech Visit ( LDPT) -- MARKUS STRATTON ([id number]) 1955 M C[facility] Date Time Provider Department 09/06/24 4:30 PM MIS MONTGOMERY LDPT Date Time Provider Department Center 09/06/2024 4:30 PM [id number], [facility] LDPT [facility] Reason for Visit: PT Eval [747] [...] Take 1 tablet by mouth once daily. Anger Control Counselor: Addendum Therapy (PT/OT/Speech/Resp) ID: [id number] 09/06/2024 7:18 PM Author: MIS MONTGOMERY Signed by MIS MONTGOMERY PT on 09/06/2024 at 7:18 PM * * * This document replaces document [id number] * * * Document text: Program_ID:[id number] Access Code: [email or web address] URL: [email or web address]/ Date: 09-06-2024 Prepared By: Mis Montgomery [...] - 2-3 sets - 10 reps Normal [facility] THERAPY NTon 09-06-2024 THERAPY NT HNO ID: [id number] Author: MIS MONTGOMERY PT Service: Physical Therapy Author Type: Physical Therapist Type: Therapy (PT/OT/Speech/Resp) Filed: 09/06/2024 19:18 Note Text: Program_ID:[id number] Access Code: [email or web address] URL: [email or web address]://[employer]/ Date: 09-06-2024 Prepared By: Mis Montgomery [...] - 2-3 sets - 10 reps Normal [facility] CNPNon [facility]-18[facility]2024 [facility] -- MARKUS STRATTON ([id number]) 1955 [facility] Date Time Provider Department 08/18/24 NIKKI JAVIER During your visit today, we recorded the following information about you: Roberta Paris 08/18/2024 9:56 AM Signed Call received for Nikki Javier MD regarding Markus Startton 1955. Caller: Self Patient Identified by Name and : Yes Was permission obtained from patient ? NA Reason for Call: Other: Carlitos wanted to inform Dr. Javier that he is doing well with his current medication. His symptoms are improving, and he feels more energetic throughout the day. Last Office Visit: 08/05/2024 Last [facility] visit: Visit date not found Next scheduled appointment: 02/21/2025 Best number to reach caller: [phone] Best time to reach caller: any Is it OK to leave a detailed voice message? Yes Nikki Palumbo MD 08/18/2024 10:18 AM Signed Thanks for [...] Encounter Status:Closed by VAL SWAN on 08/18/24 [facility] CNOVon 08-05-2024 CNOV Office Visit (NEUSTF ) -- MARKUS STRATTON ([id number]) 1955 M [facility] Date Time Provider Department 08/05/24 12:00 [...] timing. Gave info on PD research at [facility]. HPI Current Issues - Has been [...] Discussed with Patient: YES Nikki Javier MD [facility] Neurology Nikki Javier MD 08/05/2024 [...] Dinner Week 1 1/2 1/2 1/2 Week 2-3 1 1 1 Week 4-5 1.5 1.5 1.5 Week 6 and on 2 2 2 You can stop at a lower dose if you feel great on it or have side effects Add a third pill of gabapentin - take 1 around 6 (more content not included)... [facility] -- MARKUS STRATTON ([id number]) 1955 M [facility] Date Time Provider Department 05/10/24 CHRISTO WARREN [facility] During your visit today, we recorded the following information about you: Ignacia Bryant RN 05/10/2024 10:38 AM Signed Patient calling to request different cough medication. Patient was seen at [facility] [place] on 05/01/24 for cough and azithromycin and [...] headache dizziness, wheezing or SOB. Uses [facility] [place]. Please call patient with PCP response. [phone] GEOVANNA Johnson William J, MD 05/10/2024 11:36 [...] Date Reviewed: 05/01/2024 Reviewed by: Meron Cooper APRN.ROLL CONTOUR GRINDER - Fully Assessed Reason for Visit: Patient Request [2876] Prescriptions as of 05/10/2024 - benzonatate (TESSALON [...] Encounter Status:Closed by CLAU FAM on 05/10/24 [facility] Radha 05-01-2024 CNOV Office Visit ([facility] ) -- MARKUS STRATTON ([id number]) 1955 M [facility] Date Time Provider Department 05/01/24 2:40 PM MERON COOPER During your visit today, we recorded the following information about you: Temperature Pulse Respiration Blood pressure 97.9 degrees 69/minute 20/minute 142/92 Meron Cooper APRN.ROLL CONTOUR GRINDER 05/01/2024 3:07 PM Signed Body aches/Pain/Fever Acetaminophen/Tylenol [...] go to the emergency room. Meron Cooper APRN.ROLL CONTOUR GRINDER 05/01/2024 3:10 PM Signed Markus Stratton is a 68 year old [...] go to ER for evaluation. Meron Cooper APRN.ADRIENNE This note was partially (more content not included)... [facility] CNOVon 04-19-2024 CNOV Office Visit ([facility] ) -- MARKUS STRATTON ([id number]) 1955 M [facility] Date Time Provider Department 04/19/24 11:30 AM NIKKI JAVIER [facility] During your visit today, we recorded [...] timing. Gave info on PD research at [facility]. HPI Current Issues - No clear benefit to levodopa - No side effects - Takes first dose around 0837-8219, second dose around 6143-3377 Generally does not take the mid-day dose [...] 2100, bedtime around 2300, takes pramipexole around 2099 Current Outpatient Medications Medication Sig Dispense Refill [...] identified. 04/19/2024 by MD Nikki Harrell MD [facility] Neurology Nikki Javier MD 04/19/2024 [...] At the (more content not included)... Normal [facility] CNOVon 04-12-2024 [facility] Office Visit (FAMPWS ) -- MARKUS STRATTON ([id number]) 1955 M [facility] Date Time Provider Department 04/12/24 8:40 AM CHRISTO WARREN During your visit today, [...] Abs Lymph 1.00 - 4.00 k/uL 2.41 Colbert% % 6.4 Abs Colbert <0.87 k/uL 0.68 Eosin% % 1.2 Abs [...] 06/2017 COLONOSCOPY SCREENING 07/14/2017 Dr. Mohan @ [facility]; Ascending colon polyp x1, biopsy- tubular [...] done Influenza Vaccine(1) due on 11/23/2023 Covid-19 Vaccine(2023- season) due on 11/23/2023 Advance Directive Discussion-daughterAnny. VITALS: BP 158/86 Pulse 67 Ht 162.6 [...] hypertension - (more content not included)... Normal [facility] CBC W Auto Differential pane l (Bld)on 03-29-2024 Basophils (Bld) [#/Vol] 0.09 10*3/uL Normal <0.11 [facility] Comment on above: Order Comment: Speci men Type: BLOOD SPECIMEN Ordering Facility: [facility] Address: [address] [place] [address] Performed By: #### 5 7021-8 #### [facility] CLIA [id number] [address] [place] [address] [place] Basophils/100 WBC (Bld) 0.8 % Normal [facility] Comment on above: Order Comment: Katerinai heaven Type: BLOOD SPECIMEN Ordering Facility: [facility] Address: [address] [place] [address] Performed By: #### 5 7021-8 #### [facility] CLIA [id number] [address] [place] [address] [place] Differential cell count method Nom (Bld) Auto Normal [facility] Comment on above: Order Comment: Speci men Type: BLOOD SPECIMEN Ordering Facility: [facility] Address: [address] [place] [address] Performed By: #### 5 7021-8 #### [facility] CLIA [id number] [address] [place] [address] [place] Eosinophils (Bld) [#/Vol] 0.13 10*3/uL Normal <0.46 [facility] Comment on above: Order Comment: Speci men Type: BLOOD SPECIMEN Ordering Facility: [facility] Address: [address] [place] [address] Performed By: #### 5 7021-8 #### [facility] CLIA [id number] [address] [place] [address] [place] Eosinophils/100 WBC (Bld) 1.2 % Normal [facility] Comment on above: Order Comment: Speci men Type: BLOOD SPECIMEN Ordering Facility: [facility] Address: [address] [place] [address] Performed By: #### 5 7021-8 #### [facility] CLIA [id number] [address] [place] [address] [place] Erythrocyte distribution width (RBC) [Ratio] 13.4 % Normal 11.5-15.0 [facility] Comment on above: Order Comment: Speci men Type: BLOOD SPECIMEN Ordering Facility: [facility] Address: [address] [place] [address] Performed By: #### 5 7021-8 #### [facility] CLIA [id number] [address] [place] [address] [place] Hematocrit (Bld) [Volume fraction] 47.2 % Normal 39.0-51.0 [facility] Comment on above: Order Comment: Speci men Type: BLOOD SPECIMEN Ordering Facility: [facility] Address: [address] [place] [address] Performed By: #### 5 7021-8 #### [facility] CLIA [id number] [address] [place] [address] [place] Hemoglobin (Bld) [Mass/Vol] 15.1 g/dL Normal 13.0-17.0 [facility] Comment on above: Order Comment: Speci men Type: BLOOD SPECIMEN Ordering Facility: [facility] Address: [address] [place] [address] Performed By: #### 5 7021-8 #### [facility] CLIA [id number] [address] [place] [address] [place] Immature granulocytes (Bld) [#/Vol] 0.06 10*3/uL Normal <0.10 [facility] Comment on above: Order Comment: Speci men Type: BLOOD SPECIMEN Ordering Facility: [facility] Address: [address] [place] [address] Performed By: #### 5 7021-8 #### [facility] CLIA [id number] [address] [place] [address] [place] Immature granulocytes/100 WBC (Bld) 0.6 % Normal [facility] Comment on above: Order Comment: Speci men Type: BLOOD SPECIMEN Ordering Facility: [facility] Address: [address] [place] [address] Performed By: #### 5 7021-8 #### [facility] CLIA [id number] [address] [place] [address] [place] Lymphocytes (Bld) [#/Vol] 2.41 10*3/uL Normal 1.00-4.00 [facility] Comment on above: Order Comment: Speci men Type: BLOOD SPECIMEN Ordering Facility: [facility] Address: [address] [place] [address] Performed By: #### 5 7021-8 #### [facility] CLIA [id number] [address] [place] [address] [place] Lymphocytes/100 WBC (Bld) 22.7 % Normal [facility] Comment on above: Order Comment: Speci men Type: BLOOD SPECIMEN Ordering Facility: [facility] Address: [address] [place] [address] Performed By: #### 5 7021-8 #### [facility] CLIA [id number] [address] [place] [address] [place] MCH (RBC) [Entitic mass] 28.3 pg Normal 26.0-34.0 [facility] Comment on above: Order Comment: Speci men Type: BLOOD SPECIMEN Ordering Facility: [facility] Address: [address] [place] [address] Performed By: #### 5 7021-8 #### [facility] CLIA [id number] [address] [place] [address] [place] MCHC (RBC) [Mass/Vol] 32.0 g/dL Normal 30.5-36.0 [facility] Comment on above: Order Comment: Speci men Type: BLOOD SPECIMEN Ordering Facility: [facility] Address: [address] [place] [address] Performed By: #### 5 7021-8 #### [facility] CLIA [id number] [address] [place] [address] [place] MCV (RBC) [Entitic vol] 88.4 fL Normal 80.0-100.0 [facility] Comment on above: Order Comment: Speci men Type: BLOOD SPECIMEN Ordering Facility: [facility] Address: [address] [place] [address] Performed By: #### 5 7021-8 #### [facility] CLIA [id number] [address] [place] [address] [place] Monocytes (Bld) [#/Vol] 0.68 10*3/uL Normal <0.87 [facility] Comment on above: Order Comment: Speci men Type: BLOOD SPECIMEN Ordering Facility: [facility] Address: [address] [place] [address] Performed By: #### 5 7021-8 #### [facility] CLIA [id number] [address] [place] [address] [place] Monocytes/100 WBC (Bld) 6.4 % Normal [facility] Comment on above: Order Comment: Speci men Type: BLOOD SPECIMEN Ordering Facility: [facility] Address: [address] [place] [address] Performed By: #### 5 7021-8 #### [facility] CLIA [id number] [address] [place] [address] [place] Neutrophils (Bld) [#/Vol] 7.24 10*3/uL Normal 1.45-7.50 [facility] Comment on above: Order Comment: Speci men Type: BLOOD SPECIMEN Ordering Facility: [facility] Address: [address] [place] [address] Performed By: #### 5 7021-8 #### [facility] CLIA [id number] [address] [place] [address] [place] Neutrophils/100 WBC (Bld) 68.3 % Normal [facility] Comment on above: Order Comment: Speci men Type: BLOOD SPECIMEN Ordering Facility: [facility] Address: [address] [place] [address] Performed By: #### 5 7021-8 #### [facility] CLIA [id number] [address] [place] [address] [place] Nucleated RBC (Bld) [#/Vol] 10*3/uL Normal <0.01 [facility] Comment on above: Order Comment: Speci men Type: BLOOD SPECIMEN Ordering Facility: [facility] Address: [address] [place] [address] Performed By: #### 5 7021-8 #### [facility] CLIA [id number] [address] [place] [address] [place] Nucleated RBC/100 WBC (Bld) [Ratio] 0.0 /[address] [facility] Comment on above: Order Comment: Speci men Type: BLOOD SPECIMEN Ordering Facility: [facility] Address: [address] [place] [address] Performed By: #### 5 7021-8 #### [facility] CLIA [id number] [address] [place] [address] [place] Platelet mean volume (Bld) [Entitic vol] 10.6 fL Normal 9.0-12.7 [facility] Comment on above: Order Comment: Speci men Type: BLOOD SPECIMEN Ordering Facility: [facility] Address: [address] [place] [address] Performed By: #### 5 7021-8 #### [facility] CLIA [id number] [address] [place], [place] [address] [place] Platelets (Bld) [#/Vol] 261 10*3/uL Normal 150-400 [facility] Comment on above: Order Comment: Speci men Type: BLOOD SPECIMEN Ordering Facility: [facility] Address: [address] [place] [address] Performed By: #### 5 7021-8 #### [facility] CLIA [id number] [address] [place] [address] [place] RBC (Bld) [#/Vol] 5.34 10*6/uL Normal 4.20-6.00 [facility] Comment on above: Order Comment: Speci men Type: BLOOD SPECIMEN Ordering Facility: [facility] Address: [address] [place] [address] Performed By: #### 5 7021-8 #### [facility] CLIA [id number] [address] [place], [place] [address] [place] WBC (Bld) [#/Vol] 10.61 10*3/uL Normal 3.70-11.[address] [facility] Comment on above: Order Comment: Speci men Type: BLOOD SPECIMEN Ordering Facility: [facility] Address: [address] [place], [place] [address] Performed By: #### 5 7021-8 #### [facility] CLIA [id number] [address] [place], [place] [address] [place] Free PSA [Mass/Vol]on 2024 Free PSA/Total PSA [Mass fraction] 12 % Normal [facility] Comment on above: Order Comment: Speci men Type: BLOOD SPECIMEN Ordering Facility: [facility] Address: [address] [place] [address] Result Comment: Tota l and free PSA [...] 12.2% 15.8% Performed By: #### 1 0886-0 #### [facility] CLIA [id number] [address] [place] [address] [place] Prostate specific Ag [Mass/Vol] 2.51 ng/mL Normal <2.60 [facility] Comment on above: Order Comment: Speci men Type: BLOOD SPECIMEN Ordering Facility: [facility] Address: [address] [place] [address] Result Comment: Tota l PSA test methodology used is the Electrochemiluminescence Immunoassay by [employer]. Total PSA values by differing methodologies cannot be interchanged. Performed By: #### 1 0886-0 #### [facility] CLIA [id number] [address] [place] [address] [place] Colonoscopy Reporton 024 Colonoscopy Report [facility] Medical Records Department [address] [place] [address] Colonoscopy Report MR#: [id number] Acct: [id number] Name: MARKUS STRATTON Rep #: [id number] : 1955 68 From: Mohan Adhikari MD PCP: Dr. Christo Warren MD Status:[facility] Patient Name: Markus Stratton Procedure Date: [...] 1 week. Procedure Code(s): --- Professional --- 40206, Colonoscopy, flexible; with removal of tumor(s), polyp(s), or other lesion(s) by snare technique 57253, 59, Colonoscopy, flexible; with biopsy, single or [...] or abscess without bleeding CPT copyright 2021 [employer]. All rights reserved. The codes documented in this report are preliminary and upon rat culturist review may be revised to meet current compliance requirements. Mohan Adhikari MD 02/13/2024 9:31:56 AM This report has been signed electronically. Number of Addenda: 0 Note Initiated On: 02/13/2024 8:28 AM 02/13/24 0932 Date Mohan Queen Signature: Date (more content not included)... [facility] MR/POSTOP.ANEon 02-13-2024 MR/POSTOP.ANE [facility] Medical Records Department [address] [place] [address] Anesthesia Postop Eval I 02/13/24 0934 MR#: [id number] Acct: [id number] Name: EWA STRATTONPRITI LIAO Rep #: [id number] : 1955 68 From: [place] No PCP: Dr. Christo Warren MD Status:REG [facility] [place] Y Race: C Location: [place] [address] Anesthesia: Postop Eval I Current Vital Signs [...] Anesthesia document: Postop Eval 1 completed: Yes 02/13/24934 Date Chino Queen Signature: Date CC: Signed [facility] MR/[id number] 02-13-2024 MR/POSTOPAN2 [facility] Medical Records Department [address] [place] [address] Anesthesia Postop Eval II 02/13/24 1308 MR#: [id number] Acct: [id number] Name: MARKUS STRATTON Rep #: [id number] : 1955 68 From: Facundo Hough MD PCP: Dr. Christo Warren MD Status:DEP [facility] [place] Y Race: C Location: EN Anesthesia Postop [...] No Vomiting: No 02/13/24 1308 Date Facundo Henriquezer Signature: Date CC: Signed Normal [facility] Surgery Specimen Level Michael 02-13-2024 Surgery Specimen Level IV Patient Age/Sex Location Account Attending Physician SARAHMARKUS 68/M EN [id number] Dr. Mohan Adhikari MD Specimen: [id number] Received: 02/13/24 Status: MICHELLE Connelly Num: [id number] Spec Type: EGD BIOPSY Subm Dr: Dr. Mohan Adhikari MD HEADER OPERATION: Colonoscopy and polypectomy PRE-OP DIAGNOSIS: History of colonic polyps TISSUE SUBMITTED: A- Transverse colon polyp, B- Distal transverse colon polyp, C- Recto sigmoid polyp, D- Rectal polyp MICROSCOPIC DIAGNOSIS A. Transverse colon polyp, biopsy: [...] specimen is totally submitted in one cassette. SJ.mr 02/13/2024 TC:5 CPT:71783t3 Patient Age/Sex Location Account Attending Physician MARKUS STRATTON/Janell EN [id number] Dr. Mohan Adhikari MD Signed (signature on file) Dr. Fran Aguila DO 02/17/24 1031 Normal [facility] Comment on above: Performed By: #### L 400.0001 #### [facility] [address] [place], [address] [facility] 01-15-2024 CNPN Telephone (FAMPWS) -- MARKUS STRATTON ([id number]) 1955 M [facility] Date Time Provider Department 01/15/24 [facility] WARREN [facility] During your visit today, we recorded the following information about you: Heydi Rodriguez 01/15/2024 10:32 AM Signed Carlitos is calling Christo Warren MD today requesting order for routine blood work and PSA Please advise and return his call [phone] Christo Warren MD 01/15/2024 11:29 AM Signed Anna Deleon MA 01/15/2024 11:47 AM Signed Pt notified that lab orders have been faxed to [facility] Anna Page MA January 15, 2024 [...] BLOOD COUNT AND DIFFERENTIAL [SQCBCDIF] Order #: [id number] FUTURE PROSTATE SPECIFIC ANTIGEN, FREE [SQPSATF] Order #: [id number] FUTURE Prescriptions as of 04/12/2024 - pramipexole [...] Encounter Status:Closed by ANNA PAGE on 01/15/24 [facility] CNOVon 12-01-2023 CNOV Office Visit (INTMWS ) -- MARKUS STRATTON ([id number]) 1955 M [facility] Date Time Provider Department 12/01/23 11:40 AM LAKSHMI RACHEL M INTMWS During your visit today, we recorded [...] Encounter Status:Closed by IAM HUMPHRIES on 12/01/23 [facility] Cesar 12[facility]01[facility]20[facility] -- MARKUS STRATTON ([id number]) 1955 [facility] Date Time Provider Department 12/01/23 RACHEL MARTINS [...] Maintenance: Reviewed and up to date Rachel Martins, KELSEY.ADRIENNE 12/01/2023 12:05 PM Signed No medication changes. [...] office. Patient verbalizes understanding. Kobi Dejesus RN Allergies As of Date: 12/01/2023 (No [...] Encounter Status:Closed by KOBI DEJESUS on 12/01/23 [facility] CNOVon 11-20-2023 CNOV Office Visit (INTMWS ) -- MARKUS STRATTON ([id number]) 1955 [facility] Date Time Provider Department 11/20/23 12:00 PM RACHEL MARTINS INTMWS During your visit today, we recorded the following information about you: Temperature Pulse Respiration Blood pressure 98.4 degrees 64/minute 16/minute 156/90 Weight 91.7 kg Rachel Martins, ALLERGIST IMMUNOLOGIST.ROLL CONTOUR GRINDER 11/20/2023 1:26 PM Signed CC: Patient presents with: runny nose, cough: Requesting another antibiotic HPI: Markus Stratton is a 68 year old male who presents to the office with above complaint He was seen in [facility] on 11/10 for three day history of [...] 07/14/2017: COLONOSCOPY SCREENING Comment: Dr. Mohan @ [facility]; Ascending colon polyp x1, biopsy- tubular [...] tenderness or frontal sinus tenderness. Mouth/Throat: Lips: [place]. Mouth: Mucous membranes are moist. Pharynx: Oropharynx [...] MG-GUAIFENESIN 100 (more content not included)... [facility] 11-20-2023 [facility]FAMP[facility] -- MARKUS STRATTON ([id number]) 1955 [facility] Date Time Provider Department 11/20/23 CHRISTO WARREN [facility] During your visit today, we recorded the following information about you: Kemi Damico RN 11/20/2023 10:25 AM Signed Patient calls to request refill on amoxicillin and benzonatate for continued cough and runny nose. Recommended scheduling follow up appointment for re-eval from EC visit. 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 Requesting Dr. Warren send in prescriptions as requested and contact him at [phone] once completed. GEOVANNA Dye William J, MD [...] Fully Assessed Reason for Visit: Patient Question [7117] Prescriptions as of 11/20/2023 - carbidopa-levodopa (SINEMET) [...] Encounter Status:Closed by DINA MORAN on 11/20/[address] [facility] CNOVon 11-17-2023 CNOV Office Visit ([facility] ) -- MARKUS STRATTON ([id number]) 1955 M [facility] Date Time Provider Department 11/17/23 2:00 PM NIKKI JAVIER [facility] During your visit today, we recorded [...] films/image/tracing revie (more content not included)... Normal [facility] CNOVon 11-11-2023 CNOV Office Visit (UCTR ) -- MARKUS STRATTON ([id number]) 1955 M [facility] Date Time Provider Department 11/11/23 5:45 PM ISRAEL ROQUE [facility] During your visit today, we recorded the following information about you: Temperature Pulse Respiration Blood pressure 98.4 degrees 67/minute 16/minute 136/84 Weight 93.8 kg Israel Roque PA 11/11/2023 5:49 PM Signed This note was created using [employer]. Subjective Markus Stratton is a 68 year [...] 07/14/2017: COLONOSCOPY SCREENING Comment: Dr. Mohan @ [facility]; Ascending colon polyp x1, biopsy- tubular [...] COVID swab (more content not included)... Normal [facility] CNOVon 10-06-2023 CNOV Office Visit (FAMPWS ) -- MARKUS STRATTON ([id number]) 1955 [facility] Date Time Provider Department 10/06/23 [...] 06/2017 COLONOSCOPY SCREENING 07/14/2017 Dr. Mohan @ [facility]; Ascending colon polyp x1, biopsy- tubular [...] 325 mg (more content not included)... Normal [facility] 10-01-2023 [facility] -- MARKUS STRATTON ([id number]) 1955 [facility] Date Time Provider Department 10/01/[address] [facility] During your visit today, we recorded the following information about you: [place] 10/01/2023 8:45 AM Signed Last colonoscopy was done under MAC anesthesia at [facility]. The patient states I want to [...] entered for correct anesthesia type [place] [employer] [place] 10/27/2023 8:40 AM Signed ----- Message ----- From: Bonny Bains APRN.ROLL CONTOUR GRINDER Sent: 09/29/2023 4:22 PM EDT To: [place]; [place] [facility] Schedule Pool Carlitos is going to call in to schedule (if he decides to move forward with colonoscopy). I didn't place order because I am unsure if he will choose MAC or IV sedation. He will need to hold his 325mg aspirin prior. ThanksBonny APRN.ROLL CONTOUR GRINDER Allergies As of Date: 10/01/2023 (No Known Allergies) Date Reviewed: 09/29/2023 Reviewed by: Bonny Bains APRN.ROLL CONTOUR GRINDER - Fully Assessed Reason for Visit: Appointment [...] Encounter Status:Closed by SEVEN ALEGRIA on 01/27/24 [facility] CNOVon 09-29-2023 CNOV Office Visit (GENSWS ) -- MARKUS STRATTON ([id number]) 1955 [facility] Date Time Provider Department 09/29/23 4:00 PM BONNY BAINS During your visit today, we recorded the following information about you: Temperature Pulse Blood pressure Weight 97.6 degrees 74/minute 138/72 90.7 kg Height 1.626 m Bonny Bains APRN.CNP 09/29/2023 4:22 PM Signed HISTORY AND PHYSICAL Markus Stratton : 1955 REFERRING PHYSICIAN: Christo Zaragoza [facility] [address] CHIEF COMPLAINT: Patient presents with: Consult: Colonoscopy [...] Last colonoscopy was with Dr. Mohan at [facility] in June 2017 Impression: 1. Cecum: [...] 06/2017 COLONOSCOPY SCREENING 07/14/2017 Dr. Mohan @ [facility]; Ascending colon polyp x1, biopsy- tubular [...] patient shelley (more content not included)... Normal [facility] XR Lumbar spine 3 Viewson IMPRESSION: DEGENERATIVE CHANGES AND ALIGNMENT ABNORMALITIES DESCRIBED Consulting Sales Executive: [place] Transcribe Date/Time: May 02 2020 6:18A Dictated by : SAMMI MANRIQUEZ MD This examination was interpreted and the report reviewed and electronically signed by: SAMMI MANRIQUEZ MD on May 02 2020 6:19AM [facility] DIVISION OF RADIOLOGY * * *Final Report* [...] joints appear normal [facility]OLOG[facility] * * *Final Report* * [...] IMPRESSION: DEGENERATIVE CHANGES AND ALIGNMENT ABNORMALITIES DESCRIBED Consulting Sales Executive: PSCB Transcribe Date/Time: May 02 2020 6:18A Dictated by : SAMMI MANRIQUEZ MD This examination was interpreted and the report reviewed and electronically signed by: SAMMI MANRIQUEZ MD on May 02 2020 6:19AM EST [facility] XR Lumbar spine 3 ViewsOrder ed By: Ccf Provider on 05-02-2020 [facility] XR Lumbar spine 3 Viewson Radiology Study observation (narrative) [facility] Vital Signs Date Time Vital Sign Value Performing Clinician Facility 09-12-2024 14:25-0400 Body temperature 97.9 [degF] Dr. Christo Warren MD Work Phone: 9(229)[phone] [place] [address] 09-12-2024 14:25-0400 Diastolic blood pressure 93 mm[Hg] Dr. Christo Warren MD Work Phone: 3(155)544-785683 [place] [address] 09-12-2024 14:25-0400 Heart rate 66 /min Dr. Christo Warren MD Work Phone: 5(037)435-976283 [place] [address] 09-12-2024 14:25-0400 Respiratory rate 16 /min Dr. Christo Warren MD Work Phone: 0(508)154-352083 [place] [address] 09-12-2024 14:25-0400 SaO2% (BldA) [Mass fraction] 98 % Dr. Christo Warren MD Work Phone: 2(293)928-056883 [place] [address] 09-12-2024 14:25-0400 Systolic blood pressure 161 mm[Hg] Dr. Christo Warren MD Work Phone: 3(191)987-371383 [place] [address] 09-10-2024 10:30-0400 Body height 162.[address] Christo Warren MD Work Phone: 8(229)146-216483 [place] [address] 09-10-2024 10:30-0400 Body weight 91.[address] Christo Warren MD Work Phone: 4(670)204-590983 [place] [address] 09-10-2024 02:17-0400 Body mass index (BMI) [Ratio] 34.7 kg/m2 Dr. Christo Warren MD Work Phone: 4(929)019-759883 [place] [address] 09-10-2024 01:13-0400 Body temperature 99.7 [degF] Dr. Christo Warren MD Work Phone: 1(225)771-888983 [place] [address] 09-10-2024 01:13-0400 Diastolic blood pressure 96 mm[Hg] Dr. Christo Warren MD Work Phone: 0(740)750-115483 [place] [address] 09-10-2024 01:13-0400 Heart rate 91 /min Dr. Christo Warren MD Work Phone: 2(681)852-154183 [place] [address] 09-10-2024 01:13-0400 Respiratory rate 30 /min Dr. Christo Warren MD Work Phone: 5(734)791-287283 [place] [address] 09-10-2024 01:13-0400 SaO2% (BldA) [Mass fraction] 96 % Dr. Christo Warren MD Work Phone: [facility] 09-10-2024 01:13-0400 Systolic blood pressure 160 mm[Hg] Dr. Christo Warren MD Work Phone: [facility] 09-09-2024 23:14-0400 Body height 162.[address] Christo Warren MD Work Phone: [facility] 09-09-2024 23:14-0400 Body mass index (BMI) [Ratio] 34.5 kg/m2 Dr. Christo Warren MD Work Phone: [facility] 09-09-2024 23:14-0400 Body weight 91.[address] Christo Warren MD Work Phone: [facility] 08-05-2024 11:35-0400 Body mass index (BMI) [Ratio] 34.4 kg/m2 Nikki Javier MD Work Phone: [facility] 08-05-2024 11:35-0400 Body temperature 98.01 [degF] Nikki Javier MD Work Phone: [facility] 08-05-2024 11:35-0400 Body weight 90.9 kg Nikki Javier MD Work Phone: [facility] 08-05-2024 11:35-0400 Diastolic blood pressure 87 mm[Hg] Nikki Javier MD Work Phone: [facility] 08-05-2024 11:35-0400 Heart rate 61 /min Nikki Javier MD Work Phone: [facility] 08-05-2024 11:35-0400 SaO2% (BldA) [Mass fraction] 96 % Nikki Javier MD Work Phone: [facility] 08-05-2024 11:35-0400 Systolic blood pressure 144 mm[Hg] Nikki Javier MD Work Phone: [facility] 05-01-2024 14:48-0500 Body temperature 97.9 [degF] Meron David-Eibara ALLERGIST IMMUNOLOGIST.ROLL CONTOUR GRINDER Work Phone: [facility] 05-01-2024 14:48-0500 Diastolic blood pressure 92 mm[Hg] Meron David-Eibara ALLERGIST IMMUNOLOGIST.ROLL CONTOUR GRINDER Work Phone: [facility] 05-01-2024 14:48-0500 Heart rate 69 /min Meron David-Eibara ALLERGIST IMMUNOLOGIST.ROLL CONTOUR GRINDER Work Phone: [facility] 05-01-2024 14:48-0500 Respiratory rate 20 /min Meron David-Eibara ALLERGIST IMMUNOLOGIST.ROLL CONTOUR GRINDER Work Phone: [facility] 05-01-2024 14:48-0500 SaO2% (BldA) [Mass fraction] 97 % Meron David-Eibara ALLERGIST IMMUNOLOGIST.ROLL CONTOUR GRINDER Work Phone: [facility] 05-01-2024 14:48-0500 Systolic blood pressure 142 mm[Hg] Meron David-Eibara ALLERGIST IMMUNOLOGIST.ROLL CONTOUR GRINDER Work Phone: [facility] 04-19-2024 10:57-0500 Body mass index (BMI) [Ratio] 35.59 kg/m2 Nikki Javier MD Work Phone: [facility] 04-19-2024 10:57-0500 Body temperature 97 [degF] Nikki Javier MD Work Phone: [facility] 04-19-2024 10:57-0500 Body weight 94.05 kg Nikki Javier MD Work Phone: [facility] 04-19-2024 10:57-0500 Diastolic blood pressure 98 mm[Hg] Nikki Javier MD Work Phone: [facility] 04-19-2024 10:57-0500 Heart rate 62 /min Nikki Javier MD Work Phone: [facility] 04-19-2024 10:57-0500 SaO2% (BldA) [Mass fraction] 97 % Nikki Javier MD Work Phone: [facility] 04-19-2024 10:57-0500 Systolic blood pressure 155 mm[Hg] Nikki Javier MD Work Phone: [facility] 04-12-2024 08:25-0500 Body height 162.6 cm Christo Warren MD Work Phone: [facility] 04-12-2024 08:25-0500 Body mass index (BMI) [Ratio] 35.36 kg/m2 Christo Warren MD Work Phone: [facility] 04-12-2024 08:25-0500 Body weight 93.44 kg Christo Warren MD Work Phone: [facility] 04-12-2024 08:25-0500 Diastolic blood pressure 86 mm[Hg] Christo Warren MD Work Phone: [facility] 04-12-2024 08:25-0500 Heart rate 67 /min Christo Warren MD Work Phone: [facility] 04-12-2024 08:25-0500 Systolic blood pressure 158 mm[Hg] Christo Warren MD Work Phone: [facility] 12-01-2023 11:40-0400 Diastolic blood pressure 83 mm[Hg] Rachel Lakshmi ALLERGIST IMMUNOLOGIST.ROLL CONTOUR GRINDER Work Phone: [facility] Comment on above: bp lara average 12-01-2023 11:40-0400 Heart rate 64 /min Rachel WebbLakshmi ALLERGIST IMMUNOLOGIST.ROLL CONTOUR GRINDER Work Phone: [facility] 12-01-2023 11:40-0400 Systolic blood pressure 138 mm[Hg] Rachel Lakshmi ALLERGIST IMMUNOLOGIST.ROLL CONTOUR GRINDER Work Phone: [facility] Comment on above: bp lara average 11-20-2023 12:21-0400 Diastolic blood pressure 90 mm[Hg] Rachel Lakshmi ALLERGIST IMMUNOLOGIST.ROLL CONTOUR GRINDER Work Phone: [facility] 11-20-2023 12:21-0400 SaO2% (BldA) [Mass fraction] 96 % Rachel Lakshmi ALLERGIST IMMUNOLOGIST.ROLL CONTOUR GRINDER Work Phone: [facility] 11-20-2023 12:21-0400 Systolic blood pressure 156 mm[Hg] Rachel Lakshmi ALLERGIST IMMUNOLOGIST.ROLL CONTOUR GRINDER Work Phone: [facility] 11-20-2023 12:00-0400 Body mass index (BMI) [Ratio] 34.7 kg/m2 Rachel Lakshmi ALLERGIST IMMUNOLOGIST.ROLL CONTOUR GRINDER Work Phone: [facility] 11-20-2023 12:00-0400 Body temperature 98.4 [degF] Rachel VitalLakshmi ALLERGIST IMMUNOLOGIST.ROLL CONTOUR GRINDER Work Phone: [facility] 11-20-2023 12:00-0400 Body weight 91.7 kg Rachel WebbLakshmi ALLERGIST IMMUNOLOGIST.ROLL CONTOUR GRINDER Work Phone: [facility] 11-20-2023 12:00-0400 Heart rate 64 /min Rachel Martins ALLERGIST IMMUNOLOGIST.ROLL CONTOUR GRINDER Work Phone: [facility] 11-20-2023 12:00-0400 Respiratory rate 16 /min Rachel Martins ALLERGIST IMMUNOLOGIST.ROLL CONTOUR GRINDER Work Phone: [facility] 11-17-2023 13:50-0400 Body mass index (BMI) [Ratio] 34.83 kg/m2 Nikki Javier MD Work Phone: [facility] 11-17-2023 13:50-0400 Body temperature 97.81 [degF] Nikki Javier MD Work Phone: [facility] 11-17-2023 13:50-0400 Body weight 92.05 kg Nikki Javier MD Work Phone: [facility] 11-17-2023 13:50-0400 Diastolic blood pressure 64 mm[Hg] Nikki Javier MD Work Phone: [facility] 11-17-2023 13:50-0400 Heart rate 67 /min Nikki Javier MD Work Phone: [facility] 11-17-2023 13:50-0400 SaO2% (BldA) [Mass fraction] 95 % Nikki Javier MD Work Phone: [facility] 11-17-2023 13:50-0400 Systolic blood pressure 129 mm[Hg] Nikki Javier MD Work Phone: [facility] 11-11-2023 17:39-0400 Body mass index (BMI) [Ratio] 35.5 kg/m2 Krislyn Aberegg PA Work Phone: [facility] 11-11-2023 17:39-0400 Body temperature 98.4 [degF] Krislyn Aberegg PA Work Phone: [facility] 11-11-2023 17:39-0400 Body weight 93.8 kg Krislyn Aberegg PA Work Phone: [facility] 11-11-2023 17:39-0400 Diastolic blood pressure 84 mm[Hg] Krislyn Aberegg PA Work Phone: [facility] 11-11-2023 17:39-0400 Heart rate 67 /min Krislyn Aberegg PA Work Phone: [facility] 11-11-2023 17:39-0400 Respiratory rate 16 /min Krislyn Aberegg PA Work Phone: [facility] 11-11-2023 17:39-0400 SaO2% (BldA) [Mass fraction] 96 % Krislyn Aberegg PA Work Phone: [facility] 11-11-2023 17:39-0400 Systolic blood pressure 136 mm[Hg] Krislyn Aberegg PA Work Phone: [facility] 10-06-2023 11:07-0400 Body height 162.6 cm Christo Warren MD Work Phone: [facility] 10-06-2023 11:07-0400 Body mass index (BMI) [Ratio] 34.67 kg/m2 Christo Warren MD Work Phone: [facility] 10-06-2023 11:07-0400 Body weight 91.63 kg Christo Warren MD Work Phone: [facility] 10-06-2023 11:07-0400 Diastolic blood pressure 88 mm[Hg] Christo Warren MD Work Phone: [facility] 10-06-2023 11:07-0400 Heart rate 64 /min Christo Warren MD Work Phone: [facility] 10-06-2023 11:07-0400 SaO2% (BldA) [Mass fraction] 96 % Christo Warren MD Work Phone: [facility] 10-06-2023 11:07-0400 Systolic blood pressure 134 mm[Hg] Christo Warren MD Work Phone: [facility] 09-29-2023 15:49-0400 Body height 162.6 cm Bonny Omer ALLERGIST IMMUNOLOGIST.ROLL CONTOUR GRINDER Work Phone: [facility] 09-29-2023 15:49-0400 Body mass index (BMI) [Ratio] 34.33 kg/m2 Bonny Omer ALLERGIST IMMUNOLOGIST.ROLL CONTOUR GRINDER Work Phone: [facility] 09-29-2023 15:49-0400 Body temperature 97.59 [degF] Bonny Omer ALLERGIST IMMUNOLOGIST.ROLL CONTOUR GRINDER Work Phone: [facility] 09-29-2023 15:49-0400 Body weight 90.72 kg Bonny Omer ALLERGIST IMMUNOLOGIST.ROLL CONTOUR GRINDER Work Phone: [facility] 09-29-2023 15:49-0400 Diastolic blood pressure 72 mm[Hg] Bonyn Omer ALLERGIST IMMUNOLOGIST.ROLL CONTOUR GRINDER Work Phone: [facility] 09-29-2023 15:49-0400 Heart rate 74 /min Bonny Omer ALLERGIST IMMUNOLOGIST.ROLL CONTOUR GRINDER Work Phone: [facility] 09-29-2023 15:49-0400 SaO2% (BldA) [Mass fraction] 100 % Bonny Omer ALLERGIST IMMUNOLOGIST.ROLL CONTOUR GRINDER Work Phone: [facility] 09-29-2023 15:49-0400 Systolic blood pressure 138 mm[Hg] Bonnyaliyah Bains APRN.CNP Work Phone: [facility] 09-08-2023 09:57-0400 Body height 162.6 cm Christo Warren MD Work Phone: [facility] 09-08-2023 09:57-0400 Body mass index (BMI) [Ratio] 33.99 kg/m2 Christo Warren MD Work Phone: [facility] 09-08-2023 09:57-0400 Body weight 89.81 kg Christo Warren MD Work Phone: [facility] 09-08-2023 09:57-0400 Diastolic blood pressure 82 mm[Hg] Christo Warren MD Work Phone: [facility] 09-08-2023 09:57-0400 Heart rate 65 /min Christo Warren MD Work Phone: [facility] 09-08-2023 09:57-0400 SaO2% (BldA) [Mass fraction] 98 % Christo Warren MD Work Phone: [facility] 09-08-2023 09:57-0400 Systolic blood pressure 146 mm[Hg] Christo Warren MD Work Phone: [facility] 02-24-2023 17:32-0500 Diastolic blood pressure 88 mm[Hg] Christo Warren MD Work Phone: [facility] 02-24-2023 17:32-0500 Systolic blood pressure 138 mm[Hg] Christo Warren MD Work Phone: [facility] 02-24-2023 16:57-0500 Body height 162.6 cm Christo Warren MD Work Phone: [facility] 02-24-2023 16:57-0500 Body weight 88.91 kg Christo Warren MD Work Phone: [facility] 02-24-2023 16:57-0500 Heart rate 79 /min Christo Warren MD Work Phone: [facility] 02-24-2023 16:57-0500 SaO2% (BldA) [Mass fraction] 96 % Christo Warren MD Work Phone: [facility] 03-31-2022 14:47-0500 Body temperature 98.01 [degF] Juan Carlos Abebe ALLERGIST IMMUNOLOGIST.ROLL CONTOUR GRINDER Work Phone: [facility] 03-31-2022 14:47-0500 Body weight 96.16 kg Juan Carlos Abebe ALLERGIST IMMUNOLOGIST.ROLL CONTOUR GRINDER Work Phone: [facility] 03-31-2022 14:47-0500 Diastolic blood pressure 82 mm[Hg] Juan Carlos Abebe ALLERGIST IMMUNOLOGIST.ROLL CONTOUR GRINDER Work Phone: [facility] 03-31-2022 14:47-0500 Heart rate 69 /min Juan Carlos Abebe ALLERGIST IMMUNOLOGIST.ROLL CONTOUR GRINDER Work Phone: [facility] 03-31-2022 14:47-0500 Respiratory rate 16 /min Juan Carlos Abebe ALLERGIST IMMUNOLOGIST.ROLL CONTOUR GRINDER Work Phone: [facility] 03-31-2022 14:47-0500 SaO2% (BldA) [Mass fraction] 98 % Juan Carlos Abebe ALLERGIST IMMUNOLOGIST.ROLL CONTOUR GRINDER Work Phone: [facility] 03-31-2022 14:47-0500 Systolic blood pressure 120 mm[Hg] Juan Carlos Abebe ALLERGIST IMMUNOLOGIST.ROLL CONTOUR GRINDER Work Phone: [facility] Encounters Encounter Date Encounter Type Care Provider Facility Start: 09-12-2024 Non-patient / Non-visit Dr. Andrade grant DO [facility] Work Phone: Start: 09-11-2024 Non-patient / Non-visit Dr. Andrade grant [facility] Work Phone: Start: 09-10-2024 ambulatory Camden Coppola ty:[facility] Start: 09-10-2024 End: 09-12-2024 Evaluation and management of inpatient Dr. Camden Zelaya DO [facility] Work Phone: Start: 09-08-2024 End: 09-08-2024 ambulatory Payal Diaz [facility] Start: 09-08-2024 End: 09-08-2024 Patient encounter procedure Payal Diaz MA [facility] Comment on above: Population Health Na vigation Outreach ([employer] [facility] Start: 09-06-2024 End: 09-07-2024 ambulatory Mis [place] PT Work Phone: [facility] Comment on above: Posture abnormality (Primary Dx); Parkinson's disease without dyskinesia or fluctuating manifestations (HCC) Start: 08-31-2024 End: 09-10-2024 Refill Christo Warren MD Work Phone: [facility] Comment on above: Refill Request Start: 08-18-2024 End: 08-18-2024 Telephone encounter Nikki Javier MD Work Phone: Neurology Comment on above: Patient Update Start: 08-05-2024 End: 08-05-2024 Patient encounter procedure Nikki Javier MD Work Phone: Neurology Comment on above: Parkinson's disease without dyskinesia or fluctuating manifestations (HCC) (Primary Dx); RLS (restless legs syndrome) Start: 08-05-2024 End: 08-05-2024 ambulatory NIKKI JAVIER Facility:[facility] Start: 06-11-2024 End: 06-11-2024 ambulatory Elba Barron RN Work Phone: Counselor Supervisor Management Comment on above: Initial enrollment o [facility] for Chronic Disease Management Start: 05-10-2024 End: 05-10-2024 Telephone encounter Christo Warren MD Work Phone: [facility] Comment on above: Patient Request Start: 05-06-2024 End: 05-06-2024 ambulatory Alexandra Brantley MA [facility] [place] Start: 05-06-2024 End: 05-06-2024 Patient encounter procedure Alexandra Brantley MA [facility] Comment on above: Population Health Na vigation Outreach ([employer] High Risk Attempt #1 ) Start: 05-01-2024 End: 05-01-2024 ambulatory SELF Facility:[id number] Start: 05-01-2024 End: 05-01-2024 Patient encounter procedure Meron Cooper APRN.CNP Work Phone: [facility] Comment on above: Bronchitis (Primary Dx) Start: 04-19-2024 End: 04-19-2024 ambulatory NIKKI JAVIER Facility:[facility] Start: 04-19-2024 End: 04-19-2024 Patient encounter procedure Nikki Javier MD Work Phone: Neurology Comment on above: Parkinson's disease without dyskinesia or fluctuating manifestations (HCC) (Primary Dx); RLS (restless legs syndrome) Start: 04-12-2024 End: 04-12-2024 ambulatory CHRISTO WARREN Facility:[facility] Start: 04-12-2024 End: 04-12-2024 Patient encounter procedure Christo Warren MD Work Phone: [facility] Comment on above: Essential hypertensi on (Primary Dx); Anxiety and depression; Parkinson's disease, unspecified whether dyskinesia present, unspecified whether manifestations fluctuate (HCC); History of colonic polyps Start: 03-29-2024 End: 03-29-2024 ambulatory CHRISTO WARREN Facility:[facility] Start: 03-10-2024 End: 03-10-2024 Refill Christo Warren MD Work Phone: [facility] Comment on above: Refill Request Start: 02-13-2024 ambulatory [facility] Start: 02-13-2024 End: 02-13-2024 ambulatory [facility] Facility[facility] Start: 01-15-2024 End: 01-15-2024 Telephone encounter Christo Warren MD Work Phone: [facility] Comment on above: Orders Start: 01-15-2024 ambulatory [facility] Facility[facility] Start: 01-05-2024 ambulatory No Primary Car e Physician Facility:[facility] Start: 12-31-2023 End: 02-09-2024 Admission to same day surgery center [facility] Provider General Surgery Comment on above: COLON INFO Start: 12-31-2023 End: 02-09-2024 E-mail encounter from caregiver [facility] Provider General Surgery Start: 12-01-2023 End: 12-01-2023 Telephone encounter Rachel Maciel Lakshmi ALLERGIST IMMUNOLOGIST.ROLL CONTOUR GRINDER Work Phone: [facility] [place] Comment on above: Blood Pressure Check Start: 12-01-2023 End: 12-01-2023 ambulatory RACHEL MARTINS Facility:[facility] Start: 12-01-2023 End: 12-01-2023 Patient encounter procedure Rachel Maciel Lakshmi ALLERGIST IMMUNOLOGIST.ROLL CONTOUR GRINDER Work Phone: [facility] [place] Comment on above: Essential hypertensi on (Primary Dx) Start: 11-20-2023 End: 11-20-2023 Telephone encounter Christo Warren MD Work Phone: [facility] [place] Comment on above: Patient Question Start: 11-20-2023 End: 11-20-2023 ambulatory RACHEL MARTINS Facility:[facility] Start: 11-20-2023 End: 11-20-2023 Patient encounter procedure Rachel Webberger ALLERGIST IMMUNOLOGIST.ROLL CONTOUR GRINDER Work Phone: [facility] [place] Comment on above: Acute cough (Primary Dx); Essential hypertension Start: 11-17-2023 End: 11-17-2023 ambulatory NIKKI JAVIER Facility:[facility] Start: 11-17-2023 End: 11-17-2023 Patient encounter procedure Nikki Javier MD Work Phone: Neurology Comment on above: Parkinson's disease without dyskinesia or fluctuating manifestations (HCC) (Primary Dx) Start: 11-11-2023 End: 11-11-2023 [facility] Start: 11-11-2023 End: 11-11-2023 Patient encounter procedure Israel CAMPBELL [facility] Phone: [facility] Comment on above: Acute otitis media, right (Primary Dx); Acute cough Start: 10-06-2023 End: 10-06-2023 ambulatory [facility] Facility:[facility] Start: 10-06-2023 End: 10-06-2023 Patient encounter procedure Christo Warren MD Work Phone: [facility] [place] Comment on above: Essential hypertensi on (Primary Dx) Start: 10-01-2023 End: 01-27-2024 Telephone encounter Bonny Bains KELSEY.ROLL CONTOUR GRINDER Work Phone: General Surgery Comment on above: Appointment Start: 09-29-2023 End: 09-29-2023 ambulatory BONNY BAINS Facility:[facility] Start: 09-29-2023 End: 09-29-2023 Patient encounter procedure Bonny Bains APRN.ROLL CONTOUR GRINDER Work Phone: General Surgery Comment on above: FH: colon cancer in first degree relative <60 years old (Primary Dx); History of colonic polyps Start: 09-08-2023 Telephone encounter Christo Warren MD Work Phone: [facility] [place] Comment on above: Patient Question Start: 09-08-2023 End: 09-08-2023 Patient encounter procedure Christo Warren MD Work Phone: [facility] [place] Comment on above: Essential hypertensi on (Primary Dx); Anxiety and depression; RLS (restless legs syndrome); Screening for prostate cancer; Elevated PSA; History of colonic polyps; Gait disorder; Bradykinesia Start: 09-01-2023 Refill Christo Warren MD Work Phone: [facility] Comment on above: Medication Question Start: 07-29-2023 Refill Christo Warren MD Work Phone: [facility] [place] Comment on above: Refill Request Lab Orders Start: 03-04-2023 Telephone encounter Christo Warren MD Work Phone: [facility] [place] Comment on above: Results Start: 02-28-2023 ambulatory Christo Warren MD Work Phone: [facility] Start: 02-24-2023 End: 02-24-2023 Patient encounter procedure Christo Warren MD Work Phone: [facility] [place] Comment on above: RLS (restless legs s yndrome) (Primary Dx); Hyperbilirubinemia; Abnormal blood cell count; Elevated PSA; Primary hypertension Start: 02-03-2023 Refill Christo Warren MD Work Phone: [facility] [place] Comment on above: Refill Request (SEE RX NOTES) Start: 01-24-2023 ambulatory Xochitl luna (Pas[facility] Comment on above: Population Health Na vigation Outreach ([employer] care gaps) Start: 01-20-2023 Telephone encounter Christo Warren MD Work Phone: [facility] [place] Comment on above: Results Start: 01-14-2023 Telephone encounter Christo Warren MD Work Phone: [facility] [place] Comment on above: Medication Problem ( Gabapentin) Start: 01-08-2023 Telephone encounter Christo Warren MD Work Phone: Pediatrics [place] Start: 01-07-2023 ambulatory Christo Warren MD Work Phone: [facility] [place] Comment on above: Sleep Problem unable to sleep Start: 09-13-2022 ambulatory Katrina Tovar [facility] [place] Comment on above: Population Health Na vigation Outreach ([employer] Care Gaps 5.30.23) Start: 04-05-2022 Refill Christo Warren MD Work Phone: [facility] Comment on above: Refill Request Start: 04-02-2022 ambulatory Christo Warren MD Work Phone: [facility] Comment on above: Allied Health Visit (Medication Adherence Outreach) Start: 03-31-2022 End: 03-31-2022 Patient encounter procedure Juan Carlos Abebe APRN.ROLL CONTOUR GRINDER Work Phone: [facility] Comment on above: Tooth ache (Primary Dx) Start: 12-17-2021 ambulatory Payal Mercado (Ps s) [facility] Comment on above: Population Health Na vigation Outreach ([employer] Care Gaps) Start: 11-07-2021 Refill Christo Warren MD Work Phone: Counselor Supervisor Management Comment on above: Refill Request Start: 05-01-2020 End: 05-01-2020 Subsequent hospital visit by physician Silke [facility] [place] Work Phone: Radiology Comment on above: Pain of left calf [M 79.662] Procedures Date Procedure Procedure Detail Performing Clinician Start: 09-12-[address] Christo Warren MD Work Phone: Start: 09-10-2024 CT of thorax, abdome n and pelvis with contrast Dr. Christo Warren MD Work Phone: Start: 09-09-2024 Plain chest X-ray Dr. Jacklyn Warren MD Work Phone: Start: 09-09-2024 Urnls dip stick/tabl et reagent auto microscopy Dr. Christo Warren MD Work Phone: Start: 09-09-[address] Christo Warren MD Work Phone: Start: 09-09-2024 SARS-CoV-2, Influenz a & RSV (PCR) Dr. Christo Warren MD Work Phone: Start: 09-09-[address] Chacorta Warren MD Work Phone: Start: 02-13-2024 Colonoscopy Alexandra Willams on [place] Start: 01-20-2023 Lipid 1996 panel - S [...] 02-12-2029 Screening for malignant neoplasm of colon [facility] Start: 2028 RSV Vaccine (1 - 1-dose 75+ series) RSV Vaccine (1 - 1-dose 75+ series) [facility] Start: 01-21-2028 Lipid 1996 panel - Serum or Plasma Lipid Screening [facility] Start: 01-21-2028 Lipid panel Lipid Screening [facility] Start: 01-20-2026 Diabetes Screening Diabetes Screening [facility] Start: 04-12-2025 Annual PCP Team Chronic Disease Visit Annual PCP Team Chronic Disease Visit [facility] Start: 04-12-2025 Covid-19 Vaccine ( season) Covid-19 Vaccine ( season) [facility] Comment on above: Postponed from 11/23/2023 (Declined at t his time) Start: 04-12-2025 Pneumococcal Vaccine: 50+ (1 of 1 - PCV) Pneumococcal Vaccine: 50+ (1 of 1 - PCV) [facility] Comment on above: Postponed from 06/20/2003 (Declined at t his time) Start: 04-12-2025 Shingrix Vaccine (1 of 2) Shingrix Vaccine (1 of 2) [facility] Comment on above: Postponed from 06/20/2003 (Declined at t his time) Start: 04-12-2025 Urine microalbumin profile DTaP,Tdap,Td Vaccine (1 - Tdap) [facility] Comment on above: Postponed from 1972 (Declined at t his time) Start: 02-21-2025 End: 02-21-2025 Patient encounter procedure Neurology Comment on above: 5 Month follow up Start: 11-30-2024 Annual PCP Team Chronic Disease Visit Annual PCP Team Chronic Disease Visit [facility] Start: 11-22-2024 Influenza vaccination Influenza Vaccine (Season Ended) [facility] Start: 11-19-2024 Annual PCP Team Chronic Disease Visit Annual PCP Team Chronic Disease Visit [facility] Start: 11-16-2024 End: 11-16-2024 Patient encounter procedure 11/16/2024 8:40 AM EDT Office Visit Family Alejandro Esquivel [address] [facility] [place] [id number] Christo Warren MD [address] [facility] [place] [address] Follow up - BP [facility] [place] Comment on above: Follow up - BP Start: 10-18-2024 End: 10-18-2024 Patient encounter procedure 10/18/2024 11:00 AM EDT Office Visit Neurology [address] [place] [phone] Nikki Javier MD [address] [place] [address] 6m follow up Neurology Comment on above: 6m follow up Start: 10-05-2024 Annual PCP Team Chronic Disease Visit Annual PCP Team Chronic Disease Visit [facility] Start: 09-20-2024 Influenza vaccination Influenza Vaccine (#1) [facility]ber[facility] Comment on above: Postponed from 11/23/2023 (Declined at t his time) Start: 09-12-2024 Patient discharge [facility] Start: 09-10-2024 [facility] Start: 09-10-2024 Blood culture Blood Culture [facility] Start: 09-10-2024 Referral to occupational therapist [facility] Start: 09-10-2024 Referral to service [facility] Start: 09-10-2024 Application of intermittent pneumatic compression device [facility] Start: 09-10-2024 Following clinical pathway protocol [facility] Start: 09-10-2024 Cardiac monitoring [facility] Start: 09-10-2024 Catheterization of vein [facility] Start: 09-10-2024 Continuous pulse oximetry [facility] Start: 09-10-2024 Notification of physician [facility] Start: 09-10-2024 Vital signs measurements [facility] Start: 09-10-2024 End: 09-10-2024 [facility] Start: 09-10-2024 Admission procedure [facility] Start: 09-10-2024 CT Chest and Abdomen and Pelvis WO and W contrast IV [facility] Start: 09-10-2024 CT of thorax, abdomen and pelvis with contrast CTA Chst, Abd, Pel W and/or WO [facility] Start: 09-10-2024 Hospital admission, emergency, from emergency room, medical nature [facility] Start: 09-09-2024 End: 09-09-2024 [facility] Start: 09-09-2024 [facility] Start: 09-09-2024 Bacteria identified in Blood by Culture Blood Culture [facility] Start: 09-09-2024 Bacteria identified in Urine by Culture Urine Culture [facility] Start: 09-09-2024 Blood culture Blood Culture [facility] Start: 09-07-2024 Annual PCP Team Chronic Disease Visit Annual PCP Team Chronic Disease Visit [facility] Start: 09-06-2024 End: 09-06-2024 ambulatory 09/06/2024 4:30 PM EDT OT/PT/Speech Visit [facility] [address] [place] [address] Mis Montgomery, PT [address] [place] [address] Parkinson's disease without dyskinesia or fluctuating manifestations (HCC) [G20.A1] [facility] Comment on above: Parkinson's disease without dyskinesia o r fluctuating manifestations (HCC) [G20.A1] Start: 08-10-2024 End: 11-09-2024 Comprehensive metabolic 2000 panel - Serum or Plasma COMPREHENSIVE METABOLIC PANEL Lab Routine Essential hypertension Expected: 08/10/2024, Expires: 11/09/[address] [facility] Work Phone: Comment on above: Expected: 08/10/2024, Expires: Start: 08-10-2024 End: 11-09-2024 Lipid 1996 panel - Serum or Plasma LIPID PANEL BASIC Lab Routine Essential hypertension Expected: 08/10/2024, Expires: 11/09/2024 [facility] Comment on above: Expected: 08/10/2024, Expires: Start: 07-15-2024 End: 10-14-2024 Comprehensive metabolic 2000 panel - Serum or Plasma COMPREHENSIVE METABOLIC PANEL Lab Routine Screening for malignant neoplasm of prostate Elevated PSA Essential hypertension Expected: 07/15/2024, Expires: 10/14/2024 [facility] Comment on above: Expected: 07/15/2024, Expires: Start: 07-15-2024 End: 10-14-2024 Lipid 1996 panel - Serum or Plasma LIPID PANEL BASIC Lab Routine Screening for malignant neoplasm of prostate Elevated PSA Essential hypertension Expected: 07/15/2024, Expires: 10/14/2024 [facility] Comment on above: Expected: 07/15/2024, Expires: Start: 04-19-2024 End: 04-19-2024 Patient encounter procedure 04/19/2024 11:30 AM EST Office Visit Neurology [address] [place] [address] [place] [phone] Nikki Javier MD [address] [place] [address] [place] [address] Four month follow up Neurology Comment on above: Four month follow up Start: 04-12-2024 End: 04-12-2024 Patient encounter procedure 04/12/2024 8:40 AM EST Office Visit [facility] [place] [address] [place], [place] [phone] Christo Warern MD [address] [place] [address] 6 month follow up [facility] [place] Comment on above: 6 month follow up Start: 03-24-2024 Medicare Advantage Annual Wellness Visit Medicare Advantage Annual Wellness Visit [facility] Start: 02-25-2024 Annual PCP Team Chronic Disease Visit Annual PCP Team Chronic Disease Visit [facility] Start: 02-25-2024 Covid-19 Vaccine ( season) Covid-19 Vaccine ( season) [facility] Comment on above: Postponed from 11/22/2022 (Declined at t his time) Start: 02-25-2024 Pneumococcal Vaccine: 65+ (1 - PCV) Pneumococcal Vaccine: 65+ (1 - PCV) [facility] Comment on above: Postponed from 2018 (Declined at t his time) Start: 02-25-2024 Pneumococcal Vaccine: 65+ (1 of 1 - PCV) Pneumococcal Vaccine: 65+ (1 of 1 - PCV) [facility] Comment on above: Postponed from 2018 (Declined at t his time) Start: 02-25-2024 RSV Vaccine (1 - 1-dose 60+ series) RSV Vaccine (1 - 1-dose 60+ series) [facility] Comment on above: Postponed from 2013 (Declined at t his time) Start: 02-25-2024 Shingrix Vaccine (1 of 2) Shingrix Vaccine (1 of 2) [facility] Comment on above: Postponed from 06/20/2003 (Declined at t his time) Start: 02-25-2024 Urine microalbumin profile DTaP,Tdap,Td Vaccine (1 - Tdap) [facility] Comment on above: Postponed from 1972 (Declined at t his time) Start: 01-15-2024 End: 04-15-2024 CBC W Auto Differential panel - Blood COMPLETE BLOOD COUNT AND DIFFERENTIAL Lab Routine Screening for malignant neoplasm of prostate Elevated PSA Essential hypertension Expected: 01/15/2024, Expires: 04/15/[address] [facility] Work Phone: Comment on above: Expected: 01/15/2024, Expires: Start: 01-15-2024 End: 04-15-2024 Prostate Specific Ag Free [Mass/volume] in Serum or Plasma PROSTATE SPECIFIC ANTIGEN, FREE Lab Routine Screening for malignant neoplasm of prostate Elevated PSA Essential hypertension Expected: 01/15/2024, Expires: 04/15/2024 [facility] Comment on above: Expected: 01/15/2024, Expires: Start: 01-10-2024 Annual PCP Team Chronic Disease Visit Annual PCP Team Chronic Disease Visit [facility] Start: 12-01-2023 End: 12-01-2023 Patient encounter procedure 12/01/2023 11:40 AM EDT Office Visit [facility] [place] [address] [place], [place] [phone] Rachel Martins, ALLERGIST IMMUNOLOGIST.ROLL CONTOUR GRINDER [address] [place] [address] bp check [facility] [place] Comment on above: bp check Start: 11-23-2023 Covid-19 Vaccine ( season) Covid-19 Vaccine ( season) [facility] Start: 11-23-2023 Covid-19 Vaccine ( season) Covid-19 Vaccine ( season) [facility] Start: 11-23-2023 Influenza vaccination [facility] Start: 11-17-2023 End: 11-17-2023 Patient encounter procedure 11/17/2023 2:00 PM EDT Office Visit Neurology [address] [place] [phone] Nikki Javier MD [address] [place] [place] [address] 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] Neurology Comment on above: 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] Start: 10-06-2023 End: 10-06-2023 Patient encounter procedure 10/06/2023 11:20 AM EDT Office Visit [facility] [place] [address] [place], [place] [address] Christo Warren MD [address] [place] [address] 4 week follow up [facility] [place] Comment on above: 4 week follow up Start: 09-29-2023 End: 09-29-2023 Patient encounter procedure 09/29/2023 4:00 PM EDT Office Visit General Surgery [address] [place], [place] [phone] Eulalio Mohan MD [address] [facility] [place], [place] [phone] History of colonic polyps [Z86.010] General Surgery Comment on above: History of colonic polyps [Z86.010] Start: 09-21-2023 Influenza vaccination Influenza Vaccine (#1) [place] [facility]berts Comment on above: Postponed from 11/22/2022 (Declined at t his time) Start: 09-08-2023 End: 12-08-2023 Prostate Specific Ag Free [Mass/volume] in Serum or Plasma PROSTATE SPECIFIC ANTIGEN, FREE Lab Routine Screening for prostate cancer Elevated PSA Expected: 09/08/2023, Expires: 12/08/[address] [facility] Work Phone: Comment on above: Expected: 09/08/2023, Expires: Start: 09-08-2023 End: 12-08-2023 PSA/PROSTATE SPECIFIC ANTIGEN SCREENING PSA/PROSTATE SPECIFIC ANTIGEN SCREENING Lab Routine Screening for prostate cancer Elevated PSA Expected: 09/08/2023, Expires: 12/08/2023 [facility] Comment on above: Expected: 09/08/2023, Expires: Start: 09-08-2023 End: 09-08-2023 Patient encounter procedure 09/08/2023 10:00 AM EDT Office Visit Family [facility] [place] [address] [facility] [place] [address] Christo Warren MD [address] [place] [address] 6 month follow up [facility] Comment on above: 6 month follow up Start: 03-24-2023 Advance Directive Discussion Advance Directive Discussion [facility] Start: 03-04-2023 End: 06-03-2023 CBC W Ordered Manual Differential panel - Blood PATHOLOGIST INTERPRETATION WITH CBC AND DIFF Lab Routine Hyperbilirubinemia Expected: 03/04/2023, Expires: 06/03/[address] [facility] Work Phone: Comment on above: Expected: 03/04/2023, Expires: Start: 03-04-2023 End: 06-03-2023 Hepatic function 2000 panel - Serum or Plasma HEPATIC FUNCTION PNL Lab Routine Hyperbilirubinemia Expected: 03/04/2023, Expires: 06/03/[address] [facility] Work Phone: Comment on above: Expected: 03/04/2023, Expires: 4 Start: 03-04-2023 End: 06-03-2023 bilirubin panel [Mass/volume] - Serum or Plasma BILIRUBIN FRACTION Lab Routine Hyperbilirubinemia Expected: 03/04/2023, Expires: 06/03/[address] [facility] Work Phone: Comment on above: Expected: 03/04/2023, Expires: 4 Start: 03-04-2023 End: 06-03-2023 RETIC COUNT RETIC COUNT Lab Routine Hyperbilirubinemia Expected: 03/04/2023, Expires: 06/03/[address] [facility] Work Phone: Comment on above: Expected: 03/04/2023, Expires: 4 Start: 01-20-2023 End: 04-21-2023 CBC W Auto Differential panel - Blood CBC + DIFF Lab Routine Abnormal blood cell count Expected: 01/20/2023, Expires: 04/21/[address] [facility] Work Phone: Comment on above: Expected: 01/20/2023, Expires: 4 Start: 01-20-2023 End: 04-21-2023 bilirubin panel [Mass/volume] - Serum or Plasma BILIRUBIN FRACTION Lab Routine Hyperbilirubinemia Expected: 01/20/2023, Expires: 04/21/[address] [facility] Work Phone: Comment on above: Expected: 01/20/2023, Expires: 4 Start: 12-19-2022 COLORECTAL CANCER SCREENING COLORECTAL CANCER SCREENING [facility] Start: 12-19-2022 FECAL OCCULT BLOOD FECAL OCCULT BLOOD [facility] Start: 12-19-2022 Screening for malignant neoplasm of colon [facility] Start: 11-22-2022 Covid-19 Vaccine () Covid-19 Vaccine () [facility] Start: 11-22-2022 Influenza vaccination [facility] Start: 11-19-2022 ANNUAL PCP TEAM CHRONIC DISEASE VISIT ANNUAL PCP TEAM CHRONIC DISEASE VISIT [facility] Start: 07-15-2022 Screening for malignant neoplasm of colon [facility] Start: 03-24-2022 ADVANCE DIRECTIVE DISCUSSION ADVANCE DIRECTIVE DISCUSSION [facility] Start: 03-12-2022 BP CONTROLLED (<130/80) BP CONTROLLED (<130/80) [facility] Start: 11-22-2021 Influenza vaccination INFLUENZA (#1) [facility] Start: 05-26-2021 COVID-19 VACCINE (4 - Booster for Moderna series) COVID-19 VACCINE (4 - Booster for Moderna series) [facility] Start: 05-01-2021 ANNUAL PCP TEAM CHRONIC DISEASE VISIT ANNUAL PCP TEAM CHRONIC DISEASE VISIT [facility] Start: 03-24-2021 ADVANCE DIRECTIVE DISCUSSION ADVANCE DIRECTIVE DISCUSSION [facility] Start: 11-24-2020 COVID-19 VACCINE (3 - Booster for Moderna series) COVID-19 VACCINE (3 - Booster for Moderna series) [facility] Start: 08-30-2020 Lipid 1996 panel - Serum or Plasma Lipid Screening [facility] Start: 08-30-2020 LIPID SCREEN LIPID SCREEN [facility] Start: 08-30-2020 PROSTATE CANCER SCREENING DISCUSSION PROSTATE CANCER SCREENING DISCUSSION [facility] Start: 07-16-2019 Colonoscopy COLONOSCOPY [facility] Start: 07-16-2019 COLORECTAL CANCER SCREENING COLORECTAL CANCER SCREENING [facility] Start: 10-30-2018 BP CONTROLLED (<130/80) BP CONTROLLED (<130/80) [facility] Start: 08-30-2018 DIABETES SCREEN DIABETES SCREEN [facility] Start: 08-30-2018 Diabetes Screening Diabetes Screening [facility] Start: 07-15-2018 Colonoscopy COLONOSCOPY [facility] Start: 07-15-2018 Screening for malignant neoplasm of colon Colonoscopy [facility] Start: 2018 Pneumococcal Vaccine: 65+ (1 - PCV) Pneumococcal Vaccine: 65+ (1 - PCV) [facility] Start: 2018 PNEUMOCOCCAL: 65+ (1 - PCV) PNEUMOCOCCAL: 65+ (1 - PCV) [facility] Start: 2013 RSV Vaccine (1 - 1-dose 60+ series) RSV Vaccine (1 - 1-dose 60+ series) [facility] Start: 06-20-2003 Pneumococcal Vaccine: 50+ (1 of 1 - PCV) Pneumococcal Vaccine: 50+ (1 of 1 - PCV) [facility] Start: 06-20-2003 SHINGRIX VACCINE (1 of 2) SHINGRIX VACCINE (1 of 2) [facility] Start: 1998 COLOGUARD (FIT-DNA) COLOGUARD (FIT-DNA) [facility] Start: [address] COLONOGRAPHY [facility] Start: 1998 FECAL OCCULT BLOOD FECAL OCCULT BLOOD [facility] Start: 1998 Screening for malignant neoplasm of colon [facility] Start: 1998 SIGMOIDOSCOPY SIGMOIDOSCOPY [facility] Start: 1972 Urine microalbumin profile [facility] Hemoglobin.gastroint ankit nal.lower [Presence] in Stool by Immunoassay FECAL OCCULT BLOOD TEST Lab Routine Screening for colon cancer Ordered: 01/24/[address] [facility] Work Phone: Comment on above: Ordered: 01/24/2023 Lactic acid measurement [place] Patient referral [facility] Work Phone: Urine culture [facility] Immunizations Immunization Date Immunization Notes Care Provider Drew rodriguez 03-31-2021 Covid (Moderna) Dr. Christo Warren MD Work Phone: [facility] 06-24-2020 Covid (Moderna) Dr. Christo Warren MD Work Phone: [facility] 05-25-2020 Covid (Moderna) Dr. Christo Warren MD Work Phone: [facility] 10-30-2017 influenza virus vaccine, unspecified formulation Christo Warren MD Work Phone: [facility] Payers Date Payer Category Payer Medicare (Managed Care) [employer] [place] [id number] 2024 Self-pay 2024 Unknown [id number] 2020 Medicare [id number] 2020 Medicare [id number] Unknown [id number] Unknown [id number] Unknown [id number] Unknown [id number] Unknown [id number] Unknown [id number] Unknown [id number] Unknown [id number] Social History Date Type Detail Facility Start: 08-26-2017 End: 09-10-2024 Tobacco smoking status NHIS Never smoked tobacco [facility] Start: 08-26-2017 End: 11-19-2021 Tobacco use and exposure Smokeless tobacco non-user [facility] Start: 05-01-2020 End: 03-12-2021 Alcohol intake Current drinker of alcohol (finding) [facility] Start: 08-14-2015 History SDOH Alcohol Comment occasionally [facility] Start: 1955 Sex Assigned At Male [facility] Start: 04-01-2020 End: 11-13-2021 Exposure to SARS-CoV-2 (event) Not sure [facility] Work Phone: Start: 11-14-2021 History SDOH Alcohol Frequency 3 [facility] Start: 11-14-2021 History SDOH Alcohol Std Drinks 1 [facility] Start: 11-14-2021 History SDOH Social Connections Phone 4 [facility] Start: 11-14-2021 History SDOH Social Connections Get Together 5 [facility] Start: 11-14-2021 History SDOH Stress 2 [facility] Start: 11-14-2021 End: 01-08-2023 History of Social function [facility] Start: 11-14-2021 End: 01-08-2023 Social connection and isolation panel [facility] Active Member of [facility] bs or Organizations Not on file [facility] Are you now , , , , never or living with a partner? [facility] How often to you hav e a drink containing alcohol? 2-4 times a month [facility] How many standard dr inks containing alcohol do you have on a typical day? 1 or 2 [facility] How often do you hav e 6 or more drinks on 1 occasion? Never [facility] Do you feel stress - tense, restless, nervous, or anxious, or unable to sleep at night because your mind is troubled all the time - these days [OSQ] Only a little [facility] (I/We) worried luis f er (my/our) food would run out before (I/we) got money to buy more. Never true [facility] In the past 12 month s, was there a time when you were not able to pay the mortgage or rent on time? No [facility] Start: 04-25-2020 Gender identity Identifies as male gender (finding) [facility] Start: 04-25-2020 Sexual orientation Heterosexual (finding) [facility] Start: 03-31-2023 End: 08-05-2024 Alcohol intake Ex-drinker (finding) [facility] Goals Date Patient Goal Desired Activity /State Functional Status Date Assessment Result Facility 09-12-2024 Functional status Ambulates [facility] Work Phone: 09-12-2024 Functional status Tolerates Activity Well [facility] Work Phone: 04-07-2014 Are you deaf, or do you have serious difficulty hearing No 04/07/2014 12:13 PM Seven Odom LPN No [facility] 04-07-2014 Are you blind, or do you have serious difficulty seeing, even when wearing glasses No 04/07/2014 12:13 PM Seven Odom LPN No [facility] 04-07-2014 Do you have serious difficulty walking or climbing stairs No 04/07/2014 12:13 PM Seven Odom LPN No [facility] 04-07-2014 Do you have difficul ty dressing or bathing No 04/07/2014 12:13 PM Seven Odom LPN No [facility] 04-07-2014 Because of a physica l, mental, or emotional condition, do you have difficulty doing errands alone such as visiting a physician's office or shopping No 04/07/2014 12:13 PM Seven Odom LPN No [facility] Mental Status Date Assessment Result Facility 09-12-2024 Cognitive function Voice/Name [facility] Work Phone: 09-09-2024 Cognitive function Awake;Alert;A ppropriat e;Disoriented [facility] Work Phone: 04-07-2014 Because of a physica l, mental, or emotional condition, do you have serious difficulty concentrating, remembering, or making decisions No 04/07/2014 12:13 PM Seven Odom LPN No [facility] Clinical Notes 09-09-2017 to 09-12-2024 Note Date & Type Note Facility 09-12-2024 Discharge summary [facility] 09-12-2024 Note [facility] Medical Records Department [address] [place] [address] Discharge Summary 09/12/24 1252 MR#: [id number] Acct: [id number] Name: MARKUS STRATTON Rep #: [id number] : 1955 69 From: Andrade Arango DO PCP: Dr. Christo Warren MD Status:ADM IN Location: [place] [address] Providers Date of Admission: 09/10/24 Primary Care Physician: Dr. Christo Warren MD Reason For Visit: UTI SEPSIS AMS AND PARKINSON'S DISEASE Diagnosis Discharge Diagnosis (1) Sepsis: Status: Acute Code(s): A41.9 - Sepsis, unspecified organism Qualifiers: Sepsis type: sepsis due to unspecified organism Sepsis acute organ dysfunction status: with acute organ dysfunction Severe sepsis acute organ dysfunction type: encephalopathy Severe sepsis shock status: without septic shock Qualified Code(s): A41.9 - Sepsis, unspecified organism; R65.20 - Severe sepsis without septic shock; G93.41 - Metabolic encephalopathy Plan: POA qSOFA 2 (encephalopathy, RR >22) 2/2 UTI +/- cellulitis +/- bacteremia. Monitor (2) Cellulitis: Status: Acute Code(s): L03.90 - Cellulitis, unspecified Plan: Improved. Will dc with doxycycline. cellulitis and also what appears to be vancomycin POCUS concerning for SVT. I did offer the option to stay to have a formal US/duplex, but did say that it would not change mgmt. He elected to be discharged home today. (3) Acute metabolic encephalopathy: Status: Acute Code(s): G93.41 - Metabolic encephalopathy Plan: Resolved 2/2 sepsis, cellulitis in patient with known Parkinson's disease No additional work up (4) Urinary frequency: Status: Acute Code(s): R35.0 - Frequency of micturition Plan: Suspect due to BPH--not UTI. Family told it could be due to his Parkinson's disease. Recommended tamsulosin and follow up with as outpt. (5) UTI (urinary tract infection): Status: Acute Code(s): N39.0 - Urinary tract infection, site not specified Plan: Ruled out. UA upon further review was unremarkable. UCx negative. pt does have urinary frequency. I suspect due to BPH and recommended tamsulosin. (6) Bacteremia: Status: Acute Code(s): R78.81 - Bacteremia Plan: I suspect contamination as 1 of 2 cultures positive for coag negative staph on the . BCx on the negative. Plan DW his family at bedside. Medications at Discharge Home Medications carbidopa 10 mg-levodopa 100 mg tablet 1 tab PO TID Anti parkinsons 01/05/24 pramipexole 0.5 mg tablet 0.5 mg PO QHS Antiparkinsons 01/05/24 gabapentin 300 mg capsule 300 mg PO .evening Neuropathy 09/10/24 L.acidophil,salivari-Bifido bifidum-Strep thermoph 175 mg capsule 1 cap PO 4X/DAY #20 caps 09/12/24 doxycycline monohydrate 100 mg capsule 100 mg PO BID #10 caps 09/12/24 tamsulosin 0.4 mg capsule 0.4 mg PO DAILY #30 caps 09/12/24 Hospital Course Operations None Procedures None Summary of Care Provided Minutes Spent on Discharge: 40 Hospital Course: Patient presents with sepsis and metabolic encephalopathy secondary to to a respiratory cellulitis. Prior to arrival, patient had erythema of his antecubital area more proximally along his biceps. Concern was for urinary tract faction when he presented though his urinalysis only showed 5-10 white blood cells in his urine culture while being negative. Says he was initially treated for urinary tract infection but seems that the symptoms were more related with a cellulitis. Patient has improvement and will be discharged with doxycycline. Patient does have urinary frequency which I think is probably more due to BPH though family has been told that may be due to Parkinson's. I did recommend starting tamsulosin to see if that would help. Patient and his family are advised to monitor his upper extremities for any worsening redness or swelling to contact someone or return to the emergency room. I did do a bedside ultrasound and show that his bradycardia was noncompressible so I am concerned that he may have had a SVT as well did offered the option to stay in the hospital to have that formally evaluated but also told him if it is SVT it would not document management analyst would just be conservative measures. He elected to go home. Weight / BMI Weight Weight: 91.6 kg Body Mass Index (BMI) 34.7 ABG / Lab / Microbiology Data 09/12/24 06:02 09/12/24 06:02 Laboratory: Laboratory Results - last 24 hr 09/12/24 06:02: WBC 6.3, RBC 4.17 L, Hgb 12.2 L, Hct 35.7 L, MCV 85.6, MCH 29.3, MCHC 34.2, RDW Std Deviation 42.5, RDW Coeff of Earl 13.5, Plt Count 152, MPV 10.7, Immature Gran % (Auto) 0.300, Neut % (Auto) 66.4, Lymph % (Auto) 17.9 L, Colbert % (Auto) 10.0, Eos % (Auto) 4.9, Baso % (Auto) 0.5, Absolute Neuts (auto) 4.2, Absolute Lymphs (auto) 1.13, Nucleated RBC % 0, Sodium 139, Potassium 3.6, Chloride 107, Carbon Dioxide 22.2, Anion Gap (more content not included)... [facility] 09-12-2024 Progress note [facility] 09-12-2024 Progress note Note Date/Time September 12, 2024 12:52pm [facility] Medical Records Department [address] [place] [address] Progress Note - Hospitalist 09/12/24 0844 MR#: [id number] Acct: [id number] Name: MARKUS STRATTON Rep #: [id number] : 1955 69 From: Andrade Arango DO PCP: Dr. Christo Warren MD Status:ADM I N Location: [place] [address] Reason for Visit Reason for Visit: Diagnoses Sepsis, unspecified organism (09/10/24) Elevated white blood cell count, unspecified (09/10/24) Obesity, class 1 (09/10/24) Parkinson's disease with dyskinesia, with fluctuations (09/10/24) Metabolic encephalopathy (09/10/24) Cellulitis, unspecified (09/10/24) Acute cystitis with hematuria (09/10/24) Urinary tract infection, site not specified (09/10/24) Fever, unspecified (09/10/24) Weakness (09/10/24) Severe sepsis without septic shock (09/10/24) Bacteremia (09/10/24) Other specified abnormal findings of blood chemistry (09/10/24) Subjective Subjective Feels well. Ready to go home. Has had issues with urinary frequency, though currently improved. Objective Data Objective Data Vital Signs: Vital Signs Temp Pulse Resp BP Pulse Ox O2 Del Method 36.5 C L 64 16 157/90 H 97 Room Air 09/12/24 04:16 09/12/24 04:16 09/12/24 04:16 09/12/24 04:16 09/12/24 04:16 09/12/24 04:16 Oxygen Delivery Method Room Air Weight: 91.6 kg Body Mass Index (BMI) 34.7 Intake & Output: Intake and Output for Last 24 Hours 09/10/24 09/11/24 09/12/24 23:59 23:59 23:59 Intake Total 5295 / 5295 905 / 905 1415 / 1415 Output Total 750 / 750 Balance 4545 / 4545 905 / 905 1415 / 1415 Lab / Micro Data 09/12/24 06:02 09/12/24 06:02 Labs: Laboratory Results - last 24 hr 09/11/24 11:40: Sodium 139, Potassium 3.6, Chloride 107, Carbon Dioxide 21.3, Anion Gap 11, BUN 14, Creatinine 1.40 H, Estim Creat Clear Calc 49.40 L, Est GFR(MDRD) Non-Af 54 L, BUN/Creatinine Ratio 10.0, Glucose 115 H, Calcium 8.4 09/12/24 06:02: WBC 6.3, RBC 4.17 L, Hgb 12.2 L, Hct 35.7 L, MCV 85.6, MCH 29.3,MCHC 34.2, RDW Std Deviation 42.5, RDW Coeff of Earl 13.5, Plt Count 152, MPV 10.7, Immature Gran % (Auto) 0.300, Neut % (Auto) 66.4, Lymph % (Auto) 17.9 L, Colbert % (Auto) 10.0, Eos % (Auto) 4.9, Baso % (Auto) 0.5, Absolute Neuts (auto) 4.2, Absolute Lymphs (auto) 1.13, Nucleated RBC % 0, Sodium 139, Potassium 3.6, Chloride 107, Carbon Dioxide 22.2, Anion Gap 10, BUN 16, Creatinine 1.08, Estim Creat Clear Calc 64.03, Est GFR (MDRD) Non-Af 73, BUN/Creatinine Ratio 14.8, Glucose 93, Calcium 8.3 Micro: Microbiology 09/10/24 02:35 Blood Culture (Wb) - Right Hand Blood Culture - Preliminary No growth in 48 hours. 09/09/24 22:04 Blood Culture (Wb) - Left Hand Blood Culture - Preliminary No growth in 48 hours. 09/09/24 23:15 Blood Culture (Wb) - Left Hand Blood Culture - Preliminary No growth in 48 hours. 09/09/24 23:22 Blood Culture (Wb) - Anticubital Left Blood Culture - Preliminary Coag Negative Staph 09/09/24 23:47 Mucosa - Nose SARS-CoV-2, Influenza & RSV (PCR) - Final Physical Exam Narrative POCUS: indication RUE swelling. No abscess. Noncompressible brachial artery. Const alert and no apparent distress HEENT head/scalp atraumatic and moist oral mucous membranes Resp normal respiratory effort and no retractions Extremity Extremity Narrative: improved induration of right proximal arm, . Assessment & Plan Assessment/Plan (1) Sepsis: QUALIFIERS: Sepsis acute organ dysfunction status: with acute organ dysfunction Sepsis type: sepsis due to unspecified organism Severe sepsis acute organ dysfunction type: encephalopathy Severe sepsis shock status:without septic shock Qualified Code(s): A41.9 - Sepsis, unspecified organism; R65.20 - Severe sepsis without septic shock; G93.41 - Metabolic encephalopathy PLAN: POA qSOFA 2 (encephalopathy, RR >22) 2/2 UTI +/- cellulitis +/- bacteremia. Monitor (2) Cellulitis: PLAN: Improved. Will dc with doxycycline. cellulitis and also what appears to be vancomycin POCUS concerning for SVT. I did offer the option to stay to have a formal US/duplex, but did say that it would not change mgmt. He elected to be discharged home today. (3) Acute metabolic encephalopathy: PLAN: Resolved 2/2 sepsis, cellulitis in patient with known Parkinson's disease No additional work up (4) Urinary frequency: PLAN: Suspect due to BPH--not UTI. Family told it could be due to his Parkinson's disease. Recommended tamsulosin and follow up with as outpt. (5) UTI (urinary tract infection): PLAN: Ruled out. UA upon further review was unremarkable. UCx negative. pt does have urinary frequency. I suspect due to BPH and recommended tamsulosin. (6) Bacteremia: PLAN: I suspect contamination as 1 of 2 cultures positive for coag negative staph on the . BCx on the negative. PLAN: Plan DW his family at bedside. 09/12/24 1252 <Electronically signed by Andrade Arango DO> Cosigner Signature (if applicable): CC: ~ Signed [facility] Work Phone: 1(870) 699-404506-21-2025 Progress note Author Andrade Arango [facility] Note Date/Time September 11, 2024 11:0 3am [facility] Medical Records Department [address] [place] [id number] Progress Note - Hospitalist 09/11/24 0813 MR#: [id number] Acct: [id number] Name: MARKUS STRATTON Rep #: [id number] : 1955 69 From: Andrade Arango DO PCP: Dr. Christo Warren MD Status:ADM I N Location: [place] [address] Reason for Visit Reason for Visit: Diagnoses Sepsis, unspecified organism (09/10/24) Elevated white blood cell count, unspecified (09/10/24) Obesity, class 1 (09/10/24) Parkinson's disease with dyskinesia, with fluctuations (09/10/24) Metabolic encephalopathy (09/10/24) Acute cystitis with hematuria (09/10/24) Urinary tract infection, site not specified (09/10/24) Fever, unspecified (09/10/24) Weakness (09/10/24) Severe sepsis without septic shock (09/10/24) Other specified abnormal findings of blood chemistry (09/10/24) Subjective Subjective Still with headache. Complaining of discomfort in right arm. Objective Data Objective Data Vital Signs: Vital Signs Temp Pulse Resp BP Pulse Ox O2 Del Method 37.2 C 86 18 146/75 H 95 Room Air 09/11/24 05:57 09/11/24 04:04 09/11/24 04:04 09/11/24 04:04 09/11/24 04:20 09/11/24 04:20 Oxygen Delivery Method Room Air Weight: 91.6 kg Body Mass Index (BMI) 34.7 Intake & Output: Intake and Output for Last 24 Hours 09/09/24 09/10/24 09/11/24 23:59 23:59 23:59 Intake Total 50 / 50 5295 / 5295 50 / 50 Output Total 750 / 750 Balance 50 / 50 4545 / 4545 50 / 50 Lab / Micro Data 09/09/24 22:06 09/09/24 22:06 Micro: Microbiology 09/09/24 23:22 Blood Culture (Wb) - Anticubital Left Blood Culture - Preliminary 09/09/24 23:47 Mucosa - Nose SARS-CoV-2, Influenza & RSV (PCR) - Final Physical Exam Const alert and no apparent distress Constitutional Narrative: up in chair. non-toxic. HEENT head/scalp atraumatic and moist oral mucous membranes Resp normal respiratory effort, no retractions, no use of accessory muscles and clearto auscultation bilaterally Cardio regular rate, regular rhythm, S1 normal heart sound and S2 normal heart sound GI normal to inspection, nondistended, normoactive bowel sounds, soft to palpation,non-tender and non-distended Extremity Extremity Narrative: induration right antecubital arm. Assessment & Plan Assessment/Plan (1) Sepsis: QUALIFIERS: Sepsis acute organ dysfunction status: with acute organ dysfunction Sepsis type: sepsis due to unspecified organism Severe sepsis acute organ dysfunction type: encephalopathy Severe sepsis shock status:without septic shock Qualified Code(s): A41.9 - Sepsis, unspecified organism; R65.20 - Severe sepsis without septic shock; G93.41 - Metabolic encephalopathy PLAN: POA qSOFA 2 (encephalopathy, RR >22) 2/2 UTI +/- cellulitis +/- bacteremia. Monitor UCx, BCx pending (2) UTI (urinary tract infection): PLAN: follow up cultures continue pip/tazo DC vancomycin (3) Acute metabolic encephalopathy: PLAN: 2/2 sepsis, UTI in patient with known Parkinson's disease avoid potentiating medications (4) Bacteremia: PLAN: 1 of 2 cultures positive for GPC on the . BCx on the pending. Will add vancomycin. (5) Cellulitis: PLAN: cellulitis v SVT in RUE. vancomycin Check duplex. PLAN: Plan VTE prophylaxis: LMWH Charges/Coding Visit Charges Inpatient E&M: 73005 Subs Hosp L2 09/11/24 1103 <Electronically signed by Andrade Arango DO> Cosigner Signature (if applicable): CC: ~ Signed [facility] Work Phone: 1(641) 136-169706-21-2025 Progress note [facility] Medical Records Department [address] [place] [address] Progress Note - Hospitalist 09/11/24 0813 MR#: [id number] Acct: [id number] Name: MARKUS STRATTON Rep #: [id number] : 1955 69 From: Andrade Arango DO PCP: Dr. Christo Warren MD Status:ADM I N Location: [place] [address] Reason for Visit Reason for Visit: Diagnoses Sepsis, unspecified organism (09/10/24) Elevated white blood cell count, unspecified (09/10/24) Obesity, class 1 (09/10/24) Parkinson's disease with dyskinesia, with fluctuations (09/10/24) Metabolic encephalopathy (09/10/24) Acute cystitis with hematuria (09/10/24) Urinary tract infection, site not specified (09/10/24) Fever, unspecified (09/10/24) Weakness (09/10/24) Severe sepsis without septic shock (09/10/24) Other specified abnormal findings of blood chemistry (09/10/24) Subjective Subjective Still with headache. Complaining of discomfort in right arm. Objective Data Objective Data Vital Signs: Vital Signs Temp Pulse Resp BP Pulse Ox O2 Del Method 37.2 C 86 18 146/75 H 95 Room Air 09/11/24 05:57 09/11/24 04:04 09/11/24 04:04 09/11/24 04:04 09/11/24 04:20 09/11/24 04:20 Oxygen Delivery Method Room Air Weight: 91.6 kg Body Mass Index (BMI) 34.7 Intake & Output: Intake and Output for Last 24 Hours 09/09/24 09/10/24 09/11/24 23:59 23:59 23:59 Intake Total 50 / 50 5295 / 5295 50 / 50 Output Total 750 / 750 Balance 50 / 50 4545 / 4545 50 / 50 Lab / Micro Data 09/09/24 22:06 09/09/24 22:06 Micro: Microbiology 09/09/24 23:22 Blood Culture (Wb) - Anticubital Left Blood Culture - Preliminary 09/09/24 23:47 Mucosa - Nose SARS-CoV-2, Influenza & RSV (PCR) - Final Physical Exam Const alert and no apparent distress Constitutional Narrative: up in chair. non-toxic. HEENT head/scalp atraumatic and moist oral mucous membranes Resp normal respiratory effort, no retractions, no use of accessory muscles and clearto auscultation bilaterally Cardio regular rate, regular rhythm, S1 normal heart sound and S2 normal heart sound GI normal to inspection, nondistended, normoactive bowel sounds, soft to palpation,non-tender and non-distended Extremity Extremity Narrative: induration right antecubital arm. Assessment & Plan Assessment/Plan (1) Sepsis: QUALIFIERS: Sepsis acute organ dysfunction status: with acute organ dysfunction Sepsis type: sepsisdue to unspecified organism Severe sepsis acute organ dysfunction type: encephalopathy Severe sepsis shock status:without septic shock Qualified Code(s): A41.9 - Sepsis, unspecified organism; R65.20 - Severe sepsis without septic shock; G93.41 - Metabolic encephalopathy PLAN: POA qSOFA 2 (encephalopathy, RR >22) 2/2 UTI +/- cellulitis +/- bacteremia. Monitor UCx, BCx pending (2) UTI (urinary tract infection): PLAN: follow up cultures continue pip/tazo DC vancomycin (3) Acute metabolic encephalopathy: PLAN: 2/2 sepsis, UTI in patient with known Parkinson's disease avoid potentiating medications (4) Bacteremia: PLAN: 1 of 2 cultures positive for GPC on the . BCx on the pending. Will add vancomycin. (5) Cellulitis: PLAN: cellulitis v SVT in RUE. vancomycin Check duplex. PLAN: Plan VTE prophylaxis: LMWH Charges/Coding Visit Charges Inpatient E&M: 25998 Subs Hosp L2 09/11/24 1103 Cosigner Signature (if applicable): CC: ~ Signed [facility]06-20-2025 Progress note Author Andrade Arango [facility] Note Date/Time September 10, 2024 3:55 pm [facility] Medical Records Department [address] [place] [address] Progress Note - Hospitalist 09/10/24 1547 MR#: [id number] Acct: [id number] Name: MARKUS STRATTON Rep #: [id number] : 1955 69 From: Andrade Arango DO PCP: Dr. Christo Warren MD Status:ADM I N Location: [place] [address] Reason for Visit Reason for Visit: Diagnoses Sepsis, unspecified organism (09/10/24) Elevated white blood cell count, unspecified (09/10/24) Obesity, class 1 (09/10/24) Parkinson's disease with dyskinesia, with fluctuations (09/10/24) Metabolic encephalopathy (09/10/24) Acute cystitis with hematuria (09/10/24) Fever, unspecified (09/10/24) Weakness (09/10/24) Severe sepsis without septic shock (09/10/24) Other specified abnormal findings of blood chemistry (09/10/24) Subjective Subjective Anxious to go home. Objective Data Objective Data Vital Signs: Vital Signs Temp Pulse Resp BP Pulse Ox O2 Del Method 38.4 C H 94 28 H 157/102 H 92 Room Air 09/10/24 09:00 09/10/24 09:00 09/10/24 09:00 09/10/24 09:00 09/10/24 09:00 09/10/24 14:37 Oxygen Delivery Method Room Air Weight: 91.6 kg Body Mass Index (BMI) 34.7 Intake & Output: Intake and Output for Last 24 Hours 09/08/24 09/09/24 09/10/24 23:59 23:59 23:59 Intake Total 50 / 50 4885 / 4885 Output Total 750 / 750 Balance 50 / 50 4135 / 4135 Lab / Micro Data 09/09/24 22:06 09/09/24 22:06 Labs: Laboratory Results - last 24 hr 09/09/24 22:06: WBC 12.0 H, RBC 5.04, Hgb 14.6, Hct 42.7, MCV 84.7, MCH 29.0, MCHC 34.2, RDW Std Deviation 40.3, RDW Coeff of Earl 13.1, Plt Count 198, MPV 10.7, Immature Gran % (Auto) 0.500, Neut % (Auto) 85.0 H, Lymph % (Auto) 5.7 L, Colbert % (Auto) 8.3, Eos % (Auto) 0.0, Baso % (Auto) 0.5, Absolute Neuts (auto) 10.2 H, Absolute Lymphs (auto) 0.68 L, Nucleated RBC % 0, PT 14.6, INR 1.1, Sodium 135, Potassium 4.0, Chloride 100, Carbon Dioxide 20.0 L, Anion Gap 15, BUN 13, Creatinine 1.36 H, Estim Creat Clear Calc 50.34, Est GFR (MDRD) Non-Af 56 L, BUN/Creatinine Ratio 9.4 L, Glucose 139 H, Calcium 9.2, Total Bilirubin 1.85 H, Direct Bilirubin 0.70 H, AST 37, ALT 39, Alkaline Phosphatase 74, Total Protein 7.2, Albumin 4.2, Globulin 3.0, Procalcitonin 0.94 H 09/09/24 23:15: Lactic Acid 1.7 09/09/24 23:19: Urine Color Yellow, Urine Clarity Sl. Cloudy, Urine pH 6.0, Ur Specific Davenport 1.015, Urine Protein 500 H, Urine Glucose (UA) Normal, Urine Ketones 50 H, Urine Occult Blood 250 H, Urine Nitrite Negative, Urine Bilirubin Negative, Urine Urobilinogen 1 H, Ur Leukocyte Esterase 25 H, Urine RBC 50-100 SEEN, Urine WBC 5-10 SEEN, Ur Squamous Epith Cells 0 SEEN, Urine Bacteria 1+, Urine Mucus 1+ 09/09/24 23:38: Ammonia 16.2 09/10/24 02:35: Hemoglobin A1c 6.1 H, Lactic Acid 1.5, Triglycerides 72, Cholesterol 142, LDL Cholesterol, Calc 82, VLDL Cholesterol 14, HDL Cholesterol 46, Cholesterol/HDL Ratio 3.10, Vitamin B12 505, TSH 1.130 Micro: Microbiology 09/09/24 23:47 Mucosa - Nose SARS-CoV-2, Influenza & RSV (PCR) - Final Radiography Diagnostic Testing: Radiology Impression Chest X-Ray 09/09/24 23:25 IMPRESSION: Cardiomegaly. No acute process. Reading Location: [place] [address] Chest/Abdomen/Pelvis CTA 09/10/24 01:07 IMPRESSION: Fat containing right inguinal hernia without incarceration. Hepatomegaly with hepatic steatosis. Mild prostatomegaly. Right renal simple cyst measuring 3.5 cm. Mild diffuse spondylosis. Reading Location: [place] [address] Physical Exam Const alert and no apparent distress HEENT head/scalp atraumatic and moist oral mucous membranes Resp normal respiratory effort, no retractions, no use of accessory muscles and clearto auscultation bilaterally Cardio regular rate, regular rhythm, S1 normal heart sound and S2 normal heart sound GI normal to inspection, nondistended, normoactive bowel sounds, soft to palpation,non-tender and non-distended Extremity normal to inspection Assessment & Plan Assessment/Plan (1) Sepsis: QUALIFIERS: Sepsis type: sepsis due to unspecified organism Sepsis acute organ dysfunction status: with acute organ dysfunction Severe sepsis acute organ dysfunction type: encephalopathy Severe sepsis shock status:without septic shock Qualified Code(s): A41.9 - Sepsis, unspecified organism; R65.20 - Severe sepsis without septic shock; G93.41 - Metabolic encephalopathy PLAN: POA qSOFA 2 (encephalopathy, RR >22) 2/2 UTI Monitor UCx, BCx pending (2) UTI (urinary tract infection): PLAN: follow up cultures continue pip/tazo DC vancomycin (3) Acute metabolic encephalopathy: PLAN: 2/2 sepsis, UTI in patient with known Parkinson's disease avoid potentiating medications PLAN: Plan VTE prophylaxis: LMWH Charges/Coding Visit Charges Inpatient E&M: 52563 Subs Hosp L2 09/10/24 6637 <Electronically signed by Andrade Arango DO> Cosigner Signature (if applicable): CC: ~ Signed [facility] Work Phone: [phone] Progress note [facility] Medical Records Department [address] [place] [address] Progress Note - Hospitalist 09/10/24 1547 MR#: [id number] Acct: [id number] Name: MARKUS STRATTON Rep #: [id number] : 1955 69 From: Andrade Arango DO PCP: Dr. Christo Warren MD Status:ADM I N Location: [place] [address] Reason for Visit Reason for Visit: Diagnoses Sepsis, unspecified organism (09/10/24) Elevated white blood cell count, unspecified (09/10/24) Obesity, class 1 (09/10/24) Parkinson's disease with dyskinesia, with fluctuations (09/10/24) Metabolic encephalopathy (09/10/24) Acute cystitis with hematuria (09/10/24) Fever, unspecified (09/10/24) Weakness (09/10/24) Severe sepsis without septic shock (09/10/24) Other specified abnormal findings of blood chemistry (09/10/24) Subjective Subjective Anxious to go home. Objective Data Objective Data Vital Signs: Vital Signs Temp Pulse Resp BP Pulse Ox O2 Del Method 38.4 C H 94 28 H 157/102 H 92 Room Air 09/10/24 09:00 09/10/24 09:00 09/10/24 09:00 09/10/24 09:00 09/10/24 09:00 09/10/24 14:37 Oxygen Delivery Method Room Air Weight: 91.6 kg Body Mass Index (BMI) 34.7 Intake & Output: Intake and Output for Last 24 Hours 09/08/24 09/09/24 09/10/24 23:59 23:59 23:59 Intake Total 50 / 50 4885 / 4885 Output Total 750 / 750 Balance 50 / 50 4135 / 4135 Lab / Micro Data 09/09/24 22:06 09/09/24 22:06 Labs: Laboratory Results - last 24 hr 09/09/24 22:06: WBC 12.0 H, RBC 5.04, Hgb 14.6, Hct 42.7, MCV 84.7, MCH 29.0, MCHC 34.2, RDW Std Deviation 40.3, RDW Coeff of Earl 13.1, Plt Count 198, MPV 10.7, Immature Gran % (Auto) 0.500, Neut % (Auto) 85.0 H, Lymph % (Auto) 5.7 L, Colbert % (Auto) 8.3, Eos % (Auto) 0.0, Baso % (Auto) 0.5, AbsoluteNeuts (auto) 10.2 H, Absolute Lymphs (auto) 0.68 L, Nucleated RBC % 0, PT 14.6, INR 1.1, Sodium 135, Potassium 4.0, Chloride 100, Carbon Dioxide 20.0 L, Anion Gap 15, BUN 13, Creatinine 1.36 H, EstimCreat Clear Calc 50.34, Est GFR (MDRD) Non-Af 56 L, BUN/Creatinine Ratio 9.4 L, Glucose 139 H, Calcium 9.2, Total Bilirubin 1.85 H, Direct Bilirubin 0.70 H, AST 37, ALT 39, Alkaline Phosphatase 74, Total Protein 7.2, Albumin 4.2, Globulin 3.0, Procalcitonin 0.94 H 09/09/24 23:15: Lactic Acid 1.7 09/09/24 23:19: Urine Color Yellow, Urine Clarity Sl. Cloudy, Urine pH 6.0, Ur Specific Davenport 1.015, Urine Protein 500 H, Urine Glucose (UA) Normal, Urine Ketones 50 H, Urine Occult Blood 250 H, Urine Nitrite Negative, Urine Bilirubin Negative, Urine Urobilinogen 1 H, Ur Leukocyte Esterase 25 H, Urine RBC 50-100 SEEN, Urine WBC 5-10 SEEN, Ur Squamous Epith Cells 0 SEEN, Urine Bacteria 1+, UrineMucus 1+ 09/09/24 23:38: Ammonia 16.2 09/10/24 02:35: Hemoglobin A1c 6.1 H, Lactic Acid 1.5, Triglycerides 72, Cholesterol 142, LDL Cholesterol, Calc 82, VLDL Cholesterol 14, HDL Cholesterol 46, Cholesterol/HDL Ratio 3.10, Vitamin B12 505, TSH 1.130 Micro: Microbiology 09/09/24 23:47 Mucosa - Nose SARS-CoV-2, Influenza & RSV (PCR) - Final Radiography Diagnostic Testing: Radiology Impression Chest X-Ray 09/09/24 23:25 IMPRESSION: Cardiomegaly. No acute process. Reading Location: [place] [address] Chest/Abdomen/Pelvis CTA 09/10/24 01:07 IMPRESSION: Fat containing right inguinal hernia without incarceration. Hepatomegaly with hepatic steatosis. Mild prostatomegaly. Right renal simple cyst measuring 3.5 cm. Mild diffuse spondylosis. Reading Location: [place] [address] Physical Exam Const alert and no apparent distress HEENT head/scalp atraumatic and moist oral mucous membranes Resp normal respiratory effort, no retractions, no use of accessory muscles and clearto auscultation bilaterally Cardio regular rate, regular rhythm, S1 normal heart sound and S2 normal heart sound GI normal to inspection, nondistended, normoactive bowel sounds, soft to palpation,non-tender and non-distended Extremity normal to inspection Assessment & Plan Assessment/Plan (1) Sepsis: QUALIFIERS: Sepsis type: sepsis due to unspecified organism Sepsis acute organ dysfunction status: with acute organ dysfunction Severe sepsis acute organ dysfunction type: encephalopathy Severe sepsis shock status:without septic shock Qualified Code(s): A41.9 - Sepsis, unspecified organism; R65.20 - Severe sepsis without septic shock; G93.41 - Metabolic encephalopathy PLAN: POA qSOFA 2 (encephalopathy, RR >22) 2/2 UTI Monitor UCx, BCx pending (2) UTI (urinary tract infection): PLAN: follow up cultures continue pip/tazo DC vancomycin (3) Acute metabolic encephalopathy: PLAN: 2/2 sepsis, UTI in patient with known Parkinson's disease avoid potentiating medications PLAN: Plan VTE prophylaxis: LMWH Charges/Coding Visit Charges Inpatient E&M: 77013 Subs Hosp L2 09/10/24 3821 Cosigner Signature (if applicable): CC: ~ Signed [facility]06-20-2025 Telephone encounter Note* Telephone Encounter - Clau Fam LPN - 09/10/2024 1:16 PM EDT Patient is currently admitted to [facility]. [facility]06-20-2025 Miscellaneous Notes* Telephone Encounter - Clau Fam LPN - 09/10/2024 1:16 PM EDT Patient is currently admitted to [facility]. * Telephone Encounter - Christo Warren MD - 08/31/2024 10:24 AM EDT It appears neurology stopped this drug. I am not sure he is supposed to be on it. * Telephone Encounter - Val Chacon MA - 08/31/2024 9:58 AM EDT Patient has been identified by name and date of : yes Patient phones for refill(s): Requested Prescriptions Pending Prescriptions Disp Refills pramipexole (MIRAPEX) 0.5 mg tablet 90 tablet 1 Sig: Take 1 tablet by mouth daily at bedtime. Date of last office visit in primary care: 04/12/2024 Date of next office visit in primary care: Visit date not found Please advise. Thank you. Val Chacon MA. * Telephone Encounter - Jessica Sanchez - 08/31/2024 9:10 AM EDT Patient asking for a refill on a medication that is : pramipexole 0.75 mg tablet. Patient unsure of what dosage he has been taking. Patient last seen 04/12/24 Future visit scheduled: no PHARMACY: [facility] History and physical note Author Camden Axel [facility] Note Date/Time September 10, 2024 6:43 am [facility] Medical Records Department [address] [place] [address] H&P Exam - Hospitalist 09/10/24 0100 MR#: [id number] Acct: [id number] Name: MARKUS STRATTON Rep #: [id number] : 1955 69 From: Camden Blanca DO PCP: Dr. Christo Warren MD Status:ADM I N Location: [place] [address] HPI - General General Date of Admission: 09/10/24 Date of Service: 09/10/24 Chief Complaint: Fever and AMS. HPI Narrative MARKUS STRATTON, is a 69 M with a past medical history of hyperlipidemia; onatorvastatin, obesity; with BMI of 34.5 this admission, Parkinson's disease; on carbidopa-levodopa and pramipexole, history of colonic polyps; s/p polypectomy (2018), history of CTS; s/p bilateral release and OA who presents to [facility] ER complaining of fever and altered mental status. Mr. Stratton is not a fully-reliable historian at this time so information was gathered from chart, medical staff, computer and his daughter at the bedside. According to the records he became sick approximately 1-1/2 days ago with fever and malaise followed by intermittent bladder spasms. Then later on the evening of September 09, 2024 he became acutely confused unable to speak prompting his familyto bring him in for further evaluation and treatment. In the ER he was noted tohave a UA positive for Acute Cystitis; with microscopic complicated by fever 101.8 ?F, sinus tachycardia of 101 bpm, tachypnea of 35 breaths/min, Leukocytosis of 12K and Elevated Procalcitonin of 0.94 ng/mL all present on admission concerning for possible Sepsis complicated by clinical evidence of Acute Metabolic Encephalopathy and Generalized Weakness in the setting of previously known Parkinson's disease. He was then admitted to the PCU for treatment under the sepsis protocol for stay that is expected to extend beyond 2midnights. [facility] Medical History Non-smoker Family history of malignant neoplasm of colon in relative diagnosed when youngerthan 50 years of age Parkinson disease Home Medications ?Medication ?Instructions ?Recorded ?Last Taken ?Type carbidopa 10 mg-levodopa 100 mg 1 tab PO TID Anti park insons 01/05/24 09/08/24 History tablet pramipexole 0.5 mg tablet 0.5 mg PO QHS Antiparkinsons 01/05/24 09/08/24 History gabapentin 300 mg capsule 300 mg PO .evening Neuropath y 09/10/24 09/08/24 History Allergy/AdvReac Type Severity Reaction Status Date / Time No Known Allergies Allergy Verified 09/10/24 02:49 Family History Daughter Colon cancer, Onset Age: 19 At age 17yrs, Treated at [facility] and survives Surgical History History of carpal tunnel surgery of right wrist History of carpal tunnel surgery of left wrist History of colonoscopy Social History current occupational status: employed current occupation: [employer] Smoking Status: Never smoker substance use type: does not use ROS ROS Narrative Review of Systems: Constitutional: Patient admits to fever and chills. Eyes: Patient denies change in vision or discharge from eyes. ENT: Patient denies runny nose, sore throat or ear pain. Resp: Patient admits to tachypnea and shortness of breath as per HPI. CV: Patient admits to edema but he denies chest pain, palpitations or heart racing. GI: Patient denies abdominal pain, nausea, vomiting, diarrhea or constipation. : Patient admits to urinary frequency. MSK: Patient admits to generalized weakness and stiffness due to Parkinson's disease. Skin: Patient denies rash, abscess, wounds or jaundice. Psych: Patient denies symptoms of uncontrolled depression or anxiety. Neuro: Patient admits to chronic generalized weakness and stiffness with masked facies 2/2 Parkinson's. Allergy: Patient denies runny nose, sore throat or ear pain. Hematology: Patient denies easy bleeding or easy bruisability. Endocrinology: Patient denies polydipsia, polyphagia or heat/cold intolerance. 14 point ROS otherwise negative except for positives noted above in HPI. Vital Signs Vital Signs Vital Signs: 09/09/24 21:54 09/09/24 21:58 09/09/24 22:54 Temperature 103.1 F H 103.1 F H Temperature Source Oral Oral Pulse Rate 108 H 108 H Respiratory Rate 24 H 24 H Blood Pressure 166/107 H 166/107 H 150/81 H Blood Pressure Mean 126 126 104 Pulse Ox 93 93 Oxygen Delivery Method Room Air Room Air 09/09/24 22:58 09/09/24 23:15 09/10/24 00:00 Temperature 101.8 F H 101.8 F H Temperature Source Oral Oral Pulse Rate 102 H 101 H Respiratory Rate 33 H 37 H Blood Pressure 150/81 H 140/69 H Blood Pressure Mean 104 92 Pulse Ox 94 94 Oxygen Delivery Method Room Air Room Air Room Air 09/10/24 00:00 Temperature Temperature Source Pulse Rate 101 H Respiratory Rate Blood Pressure Blood Pressure Mean Pulse Ox Oxygen Delivery Method Weight Weight: 201 lb 4.513 oz Body Mass Index (BMI) 34.5 Physical Exam Const alert, oriented x3, no apparent distress, average body habitus and healthy appearing General Appearance: cooperative HEENT normocephalic, head/scalp atraumatic, hearing grossly normal bilaterally and moist oral mucous membranes Eyes PERRL and EOMs intact bilaterally Neck no lymphadenopathy and supple Resp normal respiratory effort, no retractions, no use of accessory muscles and clearto auscultation bilaterally Cardio regular rate and regular rhythm GI normal to inspection, nondistended, normoactive bowel sounds, soft to palpation,non-tender and non-distended Extremity normal to inspection and full ROM Skin Skin Narrative: Patient has evidence of rash, abscess, wounds or jaundice. Neuro oriented x3, CN's II-XII intact bilaterally, moves all extremities and no focal motor deficits Neuro Narrative: Patient has masked facies typical of his of Parkinson's disease. Speech: speech normal Psych affect normal Results Medical Records Data Attestation: I reviewed the patient's medical records Lab / Micro Data Attestation: I reviewed the patient's lab results. 09/09/24 22:06 09/09/24 22:06 Labs: Laboratory Results - last 24 hr 09/09/24 22:06: WBC 12.0 H, RBC 5.04, Hgb 14.6, Hct 42.7, MCV 84.7, MCH 29.0, MCHC 34.2, RDW Std Deviation 40.3, RDW Coeff of Earl 13.1, Plt Count 198, MPV 10.7, Immature Gran % (Auto) 0.500, Neut % (Auto) 85.0 H, Lymph % (Auto) 5.7 L, Colbert % (Auto) 8.3, Eos % (Auto) 0.0, Baso % (Auto) 0.5, Absolute Neuts (auto) 10.2 H, Absolute Lymphs (auto) 0.68 L, Nucleated RBC % 0, PT 14.6, INR 1.1, Sodium 135, Potassium 4.0, Chloride 100, Carbon Dioxide 20.0 L, Anion Gap 15, BUN 13, Creatinine 1.36 H, Estim Creat Clear Calc 50.34, Est GFR (MDRD) Non-Af 56 L, BUN/Creatinine Ratio 9.4 L, Glucose 139 H, Calcium 9.2, Total Bilirubin 1.85 H, Direct Bilirubin 0.70 H, AST 37, ALT 39, Alkaline Phosphatase 74, Total Protein 7.2, Albumin 4.2, Globulin 3.0, Procalcitonin 0.94 H 09/09/24 23:15: Lactic Acid 1.7 09/09/24 23:19: Urine Color Yellow, Urine Clarity Sl. Cloudy, Urine pH 6.0, Ur Specific Davenport 1.015, Urine Protein 500 H, Urine Glucose (UA) Normal, Urine Ketones 50 H, Urine Occult Blood 250 H, Urine Nitrite Negative, Urine Bilirubin Negative, Urine Urobilinogen 1 H, Ur Leukocyte Esterase 25 H, Urine RBC 50-100 SEEN, Urine WBC 5-10 SEEN, Ur Squamous Epith Cells 0 SEEN, Urine Bacteria 1+, Urine Mucus 1+ 09/09/24 23:38: Ammonia 16.2 Micro: Microbiology 09/09/24 23:47 Mucosa - Nose SARS-CoV-2, Influenza & RSV (PCR) - Final Imaging Radiology Impression Chest X-Ray 09/09/24 23:25 IMPRESSION: Cardiomegaly. No acute process. Reading [facility] Imaging Services [address] [place] [address] CTA Chst, Abd, Pel W and/or WO MR#: [id number] Acct: [id number] Name: MARKUS STRATTON Rep #: [id number] : 1955 M 69 From: Lenny Rubio MD PCP: Dr. Christo Warren MD Status: ADM IN Study: CTA Chst, Abd, Pel W and/or WO Date of Exam: 09/10/24 Exam# [id number] Ordering Dr: Derrek Chauhan DO PROCEDURE: CTA CHST, ABD, PEL W AND/OR WO 09/10/2024 REASON FOR EXAM: SEPSIS TECHNIQUE: CTA CHST, ABD, PEL W AND/OR WO coronal and Sagittal reconstruction series were provided. One or more dose reduction techniques were used (e.g., Automated exposure control, adjustment of the mA and/or kV according to patient size, use of iterative reconstruction technique. CONTRAST: Isovue-350 VOLUME: 100 mL RADIATION DOSE SUMMARY: CTDlvol: 17.39 mGy DLP: 1508 mGycm COMPARISON: 09/09/2024. FINDINGS: Fat containing right inguinal hernia without incarceration. Hepatomegaly with hepatic steatosis. Mild prostatomegaly. Right renal simple cyst measuring 3.5 cm. Mild diffuse spondylosis. Normal enhancement of the main pulmonary artery and right and left pulmonary arteries. Normal enhancement of the bilateral peripheral pulmonary arteries. There is no demonstrated pulmonary embolism. Normal thoracic aorta and visualized great vessels. There is no demonstrated aortic dissection. Normal heart and pericardium. Normal mediastinum. Normal hilar regions. Normal visualized trachea and bronchi. The lungs are well expanded. Normal pulmonary parenchyma. Normal pleura. Normal gallbladder and extrahepatic biliary system. Normal spleen. Normal pancreas. Normal bilateral adrenal glands. Normal size of the right kidney. There is no right renal mass. There are no right renal calculi. There is no right hydronephrosis. Normal visualized right ureter. Normal size of the left kidney. There is no left renal mass. There are no leftrenal calculi. There is no left hydronephrosis. Normal visualized left ureter. Normal visualized stomach. Normal small intestine. Normal colon. The appendix is visualized and appears normal. There is no demonstrated peritoneal fluid. Normal abdominal aorta. Normal inferior vena cava. Normal retroperitoneum. Normal urinary bladder. There is no pelvic mass lesion or lymphadenopathy. There is no pelvic fluid. CT/CTA Chst, Abd, Pel W and/or WO IMPRESSION: Fat containing right inguinal hernia without incarceration. Hepatomegaly with hepatic steatosis. Mild prostatomegaly. Right renal simple cyst measuring 3.5 cm. Mild diffuse spondylosis. Reading Location[facility] CC: Dr. Christo Warren MD; Derrek Chauhan DO ~ Consulting Sales Executive: Signed Assessment & Plan Assessment/Plan (1) Sepsis: QUALIFIERS: Sepsis acute organ dysfunction status: with acute organ dysfunction Sepsis type: sepsis due to unspecified organism Severe sepsis acute organ dysfunction type: encephalopathy Severe sepsis shock status:without septic shock Qualified Code(s): A41.9 - Sepsis, unspecified organism; R65.20 - Severe sepsis without septic shock; G93.41 - Metabolic encephalopathy (2) Acute cystitis with hematuria: (3) Fever: QUALIFIERS: Fever type: unspecified Qualified Code(s): R50.9 - Fever, unspecified (4) Leukocytosis: QUALIFIERS: Leukocytosis type: unspecified Qualified Code(s): D72.829 - Elevated white blood cell count, unspecified (5) Elevated procalcitonin: (6) Acute metabolic encephalopathy: (7) Generalized weakness: (8) Parkinson disease: QUALIFIERS: Dyskinesia presence: with dyskinesia Fluctuating manifestations: with fluctuating manifestations Qualified Code(s): G20.B2 - Parkinson's disease with dyskinesia, with fluctuations (9) Obesity (BMI 30.0-34.9): PLAN: Plan 1. UA positive for Acute Cystitis; microscopic hematuria with clinical signs ofSepsis; including Fever of 101.8 ?F, Leukocytosis of 12K and Elevated Procalcitonin 0.94 ng/mL present on admission - Admit to PCU for treatment underthe Sepsis protocol. Continue empiric IV piperacillin-tazobactam plus IV vancomycin begun in the ER and await culture and sensitivity data. Give acetaminophen prn for pain or fever. Give ondansetron IV prn for nausea and vomiting. 2. Acute Metabolic Encephalopathy and Generalized Weakness in the setting of previously known Parkinson's disease; on pramipexole complicating #1 - Maintain supportive care and monitor for improvement. Resume carbidopa-levodopa plus pramipexole as previous. Check TSH, B12, Folate, HgbA1c, UDS and GEOVANNY to expand confusion workup. Finally, we will consult PT/OT and Case Management sees patient on rounds in the a.m. further recommendations to help appreciated in advance. 3. Obesity; with BMI of 34.5 this admission adding to the burden of disease outlined from #1 & #2 - Weight loss will be recommended. Check TSH. This complicates his case and may hamper recovery. 4. Hyperlipidemia; on atorvastatin - Resume statin and check Lipid Profile. 5. History of colonic polyps; s/p polypectomy (2018) - Noted. 6. History of CTS; s/p bilateral release - Noted. 7. OA - Give acetaminophen prn as per pain scale outlined in #1. 8. DVT prophylaxis - Enoxaparin 40 mg sq daily plus SCD's. Total time: Approximately (but not less than) 75 minutes. Sepsis Attestation Sepsis Alert: Yes Sepsis Attestation: Agree w/Sepsis Date exam was performed: 09/10/24 Time exam was performed: 01:30 Possible Source of Sepsis: Genitourinary Sepsis Organ Dysfunction Criteria Present: New/Unexplained change in mental status Fluid Resuscitation Fluid resuscitation indicated?: Yes Fluid Resuscitation ordered: 30 ml/kg fluid bolus ordered Amount of fluid ordered: 2 Sepsis Note Date exam was performed: 09/10/24 Time exam was performed: 05:30 Sepsis Attestation: Sepsis re-evaluation was performed Response to fluids: Fluid responsive hypotension Charges/Coding Visit Charges Inpatient E&M: 70394 Init Hosp L3 09/10/24 0643 <Electronically signed by Camden Zelaya DO> Cosigner Signature (if applicable): CC: Dr. Camden Zelaya DO; Dr. Christo Warren MD~ Signed [facility] Work Phone: [phone] History and physical note [facility] Medical Records Department [address] [place] [address] H&P Exam - Hospitalist 09/10/24 0100 MR#: [id number] Acct: [id number] Name: MARKUS STRATTON Rep #: [id number] : 1955 69 From: Camden Blanca DO PCP: Dr. Christo Warren MD Status:ADM I N Location: [place] [address] HPI - General General Date of Admission: 09/10/24 Date of Service: 09/10/24 Chief Complaint: Fever and AMS. HPI Narrative MARKUS STRATTON, is a 69 M with a past medical history of hyperlipidemia; onatorvastatin, obesity; with BMI of 34.5 this admission, Parkinson's disease; on carbidopa-levodopa and pramipexole, history of colonic polyps; s/p polypectomy (2018), history of CTS; s/p bilateral release and OA who presents to [facility] ER complaining of fever and altered mental status. Mr. Stratton is not a fully-reliable historian at this time so information was gathered from chart, medical staff, computer and his daughter at the bedside. According to the records he became sick approximately 1-1/2 days ago with fever and malaise followed by intermittent bladder spasms. Then later on the evening of September 09, 2024 he became acutely confused unable to speak prompting his familyto bring him infor further evaluation and treatment. In the ER he was noted tohave a UA positive for Acute Cystitis; with microscopic complicated by fever 101.8 ?F, sinus tachycardia of 101 bpm, tachypnea of 35 breaths/min, Leukocytosis of 12K and Elevated Procalcitonin of 0.94 ng/mL all present on admission concerning for possible Sepsis complicated by clinical evidence of Acute Metabolic Encephalopathy and Generalized Weakness in the setting of previously known Parkinson's disease. He was then admitted to the PCU for treatment under the sepsis protocol for stay that is expected to extend beyond 2midnights. [facility] Medical History Non-smoker Family history of malignant neoplasm of colon in relative diagnosed when youngerthan 50 years of age Parkinson disease Home Medications ?Medication ?Instructions ?Recorded ?Last Taken ?Type carbidopa 10 mg-levodopa 100 mg 1 tab PO TID Anti park insons 01/05/24 09/08/24 History tablet pramipexole 0.5 mg tablet 0.5 mg PO QHS Antiparkinsons 01/05/24 09/08/24 History gabapentin 300 mg capsule 300 mg PO .evening Neuropath y 09/10/24 09/08/24 History Allergy/AdvReac Type Severity Reaction Status Date / Time No Known Allergies Allergy Verified 09/10/24 02:49 Family History Daughter Colon cancer, Onset Age: 19 At age 17yrs, Treated at [facility] Surgical History History of carpal tunnel surgery of right wrist History of carpal tunnel surgery of left wrist History of colonoscopy Social History current occupational status: employed current occupation: [employer] Smoking Status: Never smoker substance use type: does not use ROS ROS Narrative Review of Systems: Constitutional: Patient admits to fever and chills. Eyes: Patient denies change in vision or discharge from eyes. ENT: Patient denies runny nose, sore throat or ear pain. Resp: Patient admits to tachypnea and shortness of breath as per HPI. CV: Patient admits to edema but he denies chest pain, palpitations or heart racing. GI: Patient denies abdominal pain, nausea, vomiting, diarrhea or constipation. : Patient admits to urinary frequency. MSK: Patient admits to generalized weakness and stiffness due to Parkinson's disease. Skin: Patient denies rash, abscess, wounds or jaundice. Psych: Patient denies symptoms of uncontrolled depression or anxiety. Neuro: Patient admits to chronic generalized weakness and stiffness with masked facies 2/2 Parkinson's. Allergy: Patient denies runny nose, sore throat or ear pain. Hematology: Patient denies easy bleeding or easy bruisability. Endocrinology: Patient denies polydipsia, polyphagia or heat/cold intolerance. 14 point ROS otherwise negative except for positives noted above in HPI. Vital Signs Vital Signs Vital Signs: 09/09/24 21:54 09/09/24 21:58 09/09/24 22:54 Temperature 103.1 F H 103.1 F H Temperature Source Oral Oral Pulse Rate 108 H 108 H Respiratory Rate 24 H 24 H Blood Pressure 166/107 H 166/107 H 150/81 H Blood Pressure Mean 126 126 104 Pulse Ox 93 93 Oxygen Delivery Method Room Air Room Air 09/09/24 22:58 09/09/24 23:15 09/10/24 00:00 Temperature 101.8 F H 101.8 F H Temperature Source Oral Oral Pulse Rate 102 H 101 H Respiratory Rate 33 H 37 H Blood Pressure 150/81 H 140/69 H Blood Pressure Mean 104 92 Pulse Ox 94 94 Oxygen Delivery Method Room Air Room Air Room Air 09/10/24 00:00 Temperature Temperature Source Pulse Rate 101 H Respiratory Rate Blood Pressure Blood Pressure Mean Pulse Ox Oxygen Delivery Method Weight Weight: 201 lb 4.513 oz Body Mass Index (BMI) 34.5 Physical Exam Const alert, oriented x3, no apparent distress, average body habitus and healthy appearing General Appearance: cooperative HEENT normocephalic, head/scalp atraumatic, hearing grossly normal bilaterally and moist oral mucous membranes Eyes PERRL and EOMs intact bilaterally Neck no lymphadenopathy and supple Resp normal respiratory effort, no retractions, no use of accessory muscles and clearto auscultation bilaterally Cardio regular rate and regular rhythm GI normal to inspection, nondistended, normoactive bowel sounds, soft to palpation,non-tender and non-distended Extremity normal to inspection and full ROM Skin Skin Narrative: Patient has evidence of rash, abscess, wounds or jaundice. Neuro oriented x3, CN's II-XII intact bilaterally, moves all extremities and no focal motor deficits Neuro Narrative: Patient has masked facies typical of his of Parkinson's disease. Speech: speech normal Psych affect normal Results Medical Records Data Attestation: I reviewed the patient's medical records Lab / Micro Data Attestation: I reviewed the patient's lab results. 09/09/24 22:06 09/09/24 22:06 Labs: Laboratory Results - last 24 hr 09/09/24 22:06: WBC 12.0 H, RBC 5.04, Hgb 14.6, Hct 42.7, MCV 84.7, MCH 29.0, MCHC 34.2, RDW Std Deviation 40.3, RDW Coeff of Earl 13.1, Plt Count 198, MPV 10.7, Immature Gran % (Auto) 0.500, Neut % (Auto) 85.0 H, Lymph % (Auto) 5.7 L, Colbert % (Auto) 8.3, Eos % (Auto) 0.0, Baso % (Auto) 0.5, AbsoluteNeuts (auto) 10.2 H, Absolute Lymphs (auto) 0.68 L, Nucleated RBC % 0, PT 14.6, INR 1.1, Sodium 135, Potassium 4.0, Chloride 100, Carbon Dioxide 20.0 L, Anion Gap 15, BUN 13, Creatinine 1.36 H, EstimCreat Clear Calc 50.34, Est GFR (MDRD) Non-Af 56 L, BUN/Creatinine Ratio 9.4 L, Glucose 139 H, Calcium 9.2, Total Bilirubin 1.85 H, Direct Bilirubin 0.70 H, AST 37, ALT 39, Alkaline Phosphatase 74, Total Protein 7.2, Albumin 4.2, Globulin 3.0, Procalcitonin 0.94 H 09/09/24 23:15: Lactic Acid 1.7 09/09/24 23:19: Urine Color Yellow, Urine Clarity Sl. Cloudy, Urine pH 6.0, Ur Specific Davenport 1.015, Urine Protein 500 H, Urine Glucose (UA) Normal, Urine Ketones 50 H, Urine Occult Blood 250 H, Urine Nitrite Negative, Urine Bilirubin Negative, Urine Urobilinogen 1 H, Ur Leukocyte Esterase 25 H, Urine RBC 50-100 SEEN, Urine WBC 5-10 SEEN, Ur Squamous Epith Cells 0 SEEN, Urine Bacteria 1+, UrineMucus 1+ 09/09/24 23:38: Ammonia 16.2 Micro: Microbiology 09/09/24 23:47 Mucosa - Nose SARS-CoV-2, Influenza & RSV (PCR) - Final Imaging Radiology Impression Chest X-Ray 09/09/24 23:25 IMPRESSION: Cardiomegaly. No acute process. Reading Location: [facility] Imaging Services [address] [place] [address] [id number] CTA Chst, Abd, Pel W and/or WO MR#: [id number] Acct: [id number] Name: MARKUS STRATTON Rep #: [id number] : 1955 M 69 From: Lenny Rubio MD PCP: Dr. Christo Warren MD Status: ADM IN Study: CTA Chst, Abd, Pel W and/or WO Date of Exam: 09/10/24 Exam# [id number] Ordering Dr: Derrek Chauhan DO PROCEDURE: CTA CHST, ABD, PEL W AND/OR WO 09/10/2024 REASON FOR EXAM: SEPSIS TECHNIQUE: CTA CHST, ABD, PEL W AND/OR WO coronal and Sagittal reconstruction series were provided. One or more dose reduction techniques were used (e.g., Automated exposure control, adjustment of the mA and/or kV according to patient size, use of iterative reconstruction technique. CONTRAST: Isovue-350 VOLUME: 100 mL RADIATION DOSE SUMMARY: CTDlvol: 17.39 mGy DLP: 1508 mGycm COMPARISON: 09/09/2024. FINDINGS: Fat containing right inguinal hernia without incarceration. Hepatomegaly with hepatic steatosis. Mild prostatomegaly. Right renal simple cyst measuring 3.5 cm. Mild diffuse spondylosis. Normal enhancement of the main pulmonary artery and right and left pulmonary arteries. Normal enhancement of the bilateral peripheral pulmonary arteries. There is no demonstrated pulmonary embolism. Normal thoracic aorta and visualized great vessels. There is no demonstrated aortic dissection. Normal heart and pericardium. Normal mediastinum. Normal hilar regions. Normal visualized trachea and bronchi. The lungs are well expanded. Normal pulmonary parenchyma. Normal pleura. Normal gallbladder and extrahepatic biliary system. Normal spleen. Normal pancreas. Normal bilateral adrenal glands. Normal size of the right kidney. There is no right renal mass. There are no right renal calculi. There is no right hydronephrosis. Normal visualized right ureter. Normal size of the left kidney. There is no left renal mass. There are no leftrenal calculi. There is no left hydronephrosis. Normal visualized left ureter. Normal visualized stomach. Normal small intestine. Normal colon. The appendix is visualized and appears normal. There is no demonstrated peritoneal fluid. Normal abdominal aorta. Normal inferior vena cava. Normal retroperitoneum. Normal urinary bladder. There is no pelvic mass lesion or lymphadenopathy. There is no pelvic fluid. CT/CTA Chst, Abd, Pel W and/or WO IMPRESSION: Fat containing right inguinal hernia without incarceration. Hepatomegaly with hepatic steatosis. Mild prostatomegaly. Right renal simple cyst measuring 3.5 cm. Mild diffuse spondylosis. Reading [facility] CC: Dr. Christo Warren MD; Derrek Chauhan DO ~ Consulting Sales Executive: Signed Assessment & Plan Assessment/Plan (1) Sepsis: QUALIFIERS: Sepsis acute organ dysfunction status: with acute organ dysfunction Sepsis type: sepsisdue to unspecified organism Severe sepsis acute organ dysfunction type: encephalopathy Severe sepsis shock status:without septic shock Qualified Code(s): A41.9 - Sepsis, unspecified organism; R65.20 - Severe sepsis without septic shock; G93.41 - Metabolic encephalopathy (2) Acute cystitis with hematuria: (3) Fever: QUALIFIERS: Fever type: unspecified Qualified Code(s): R50.9 - Fever, unspecified (4) Leukocytosis: QUALIFIERS: Leukocytosis type: unspecified Qualified Code(s): D72.829 - Elevated white blood cell count, unspecified (5) Elevated procalcitonin: (6) Acute metabolic encephalopathy: (7) Generalized weakness: (8) Parkinson disease: QUALIFIERS: Dyskinesia presence: with dyskinesia Fluctuating manifestations: with fluctuating manifestations Qualified Code(s): G20.B2 - Parkinson's disease with dyskinesia, with fluctuations (9) Obesity (BMI 30.0-34.9): PLAN: Plan 1. UA positive for Acute Cystitis; microscopic hematuria with clinical signs ofSepsis; including Fever of 101.8 ?F, Leukocytosis of 12K and Elevated Procalcitonin 0.94 ng/mL present on admission - Admit to PCU for treatment underthe Sepsis protocol. Continue empiric IV piperacillin-tazobactam plus IV vancomycin begun in the ER and await culture and sensitivity data. Give acetaminophen prn for pain or fever. Give ondansetron IV prn for nausea and vomiting. 2. Acute Metabolic Encephalopathy and Generalized Weakness in the setting of previously known Parkinson's disease; on pramipexole complicating #1 - Maintain supportive care and monitor for improvement. Resume carbidopa-levodopa plus pramipexole as previous. Check TSH, B12, Folate, HgbA1c, UDS and GEOVANNY to expand confusion workup. Finally, we will consult PT/OT and Case Management sees patient on rounds in the a.m. further recommendations to help appreciated in advance. 3. Obesity; with BMI of 34.5 this admission adding to the burden of disease outlined from #1 & #2 - Weight loss will be recommended. Check TSH. This complicates his case and may hamper recovery. 4. Hyperlipidemia; on atorvastatin - Resume statin and check Lipid Profile. 5. History of colonic polyps; s/p polypectomy (2018) - Noted. 6. History of CTS; s/p bilateral release - Noted. 7. OA - Give acetaminophen prn as per pain scale outlined in #1. 8. DVT prophylaxis - Enoxaparin 40 mg sq daily plus SCD's. Total time: Approximately (but not less than) 75 minutes. Sepsis Attestation Sepsis Alert: Yes Sepsis Attestation: Agree w/Sepsis Date exam was performed: 09/10/24 Time exam was performed: 01:30 Possible Source of Sepsis: Genitourinary Sepsis Organ Dysfunction Criteria Present: New/Unexplained change in mental status Fluid Resuscitation Fluid resuscitation indicated?: Yes Fluid Resuscitation ordered: 30 ml/kg fluid bolus ordered Amount of fluid ordered: 2 Sepsis Note Date exam was performed: 09/10/24 Time exam was performed: 05:30 Sepsis Attestation: Sepsis re-evaluation was performed Response to fluids: Fluid responsive hypotension Charges/Coding Visit Charges Inpatient E&M: 60052 Init Hosp L3 09/10/24 0643 Cosigner Signature (if applicable): CC: Dr. Camden Zelaya DO; Dr. Christo Warren MD~ Signed [facility]2025 Discharge summary Author Derrek Chauhan [facility] Note Date/Time September 10, 2024 3:25 am [facility] Medical Records Department [address] [place] [address] Emergency Department Summary 09/10/24 MR#: [id number] Acct: [id number] Name: MARKUS STRATTON Rep #: [id number] : 1955 69 From: Derrek Chauhan DO PCP: Dr. Christo Warren MD Status:ADM I N Location: [place] [address] HPI History of Present Illness Chief Complaint: Confusion Informant: patient and family Narrative Narrative: Patient is a 69-year-old male with past medical history of Parkinson's disease. According to family he told them that he did not feel well and left work early. Family states that they went to check on the patient as he lives alone and he seemed confused from his baseline. They state that he is also been having frequent urination. Family reports that it is unknown if he has been taking hismedication as directed. However because of his increased confusion and fatigue they have concern for potential infection and he was brought in for evaluation Upon arrival to the ER the patient is awake alert and oriented to person place and time. He states that he feels tired at this time but otherwise has no complaints [facility] Medical History Non-smoker Family history of malignant neoplasm of colon in relative diagnosed when youngerthan 50 years of age Parkinson disease Home Medications ?Medication ?Instructions ?Recorded ?Last Taken ?Type carbidopa 10 mg-levodopa 100 mg 1 tab PO TID Anti park insons 01/05/24 09/08/24 History tablet pramipexole 0.5 mg tablet 0.5 mg PO QHS Antiparkinsons 01/05/24 09/08/24 History gabapentin 300 mg capsule 300 mg PO .evening Neuropath y 09/10/24 09/08/24 History Allergy/AdvReac Type Severity Reaction Status Date / Time No Known Allergies Allergy Verified 09/10/24 02:49 Family History Daughter Colon cancer, Onset Age: 19 At age 19yrs, Treated at [facility] Surgical History History of carpal tunnel surgery of right wrist History of carpal tunnel surgery of left wrist History of colonoscopy Social History current occupational status: employed current occupation: [employer] Smoking Status: Never smoker substance use type: does not use ROS ROS ED Constitutional Constitutional ED: Reports other Details: Positive fatigue ; Denies chills or fever(s) Eyes Eyes: Denies change in vision ENT ENT ED: Denies rhinorrhea or sore throat Cardiovascular Cardiovascular: Denies chest pain Respiratory/Chest Respiratory/Chest: Denies cough or dyspnea Gastrointestinal Gastrointestinal: Denies abdominal pain, diarrhea, nausea or vomiting Genitourinary Genitourinary ED: Reports urinary frequency; Denies dysuria Musculoskeletal Musculoskeletal: Denies myalgias Integumentary Denies rash Neurologic Neurologic: Reports headache(s) and weakness Hematologic/Lymphatic Hematologic/Lymphatic: Denies easy bleeding or easy bruising EXAM Physical Exam Const Vital Signs: 09/09/24 21:54 09/09/24 21:58 09/09/24 22:54 Temperature 103.1 F H 103.1 F H Temperature Source Oral Oral Pulse Rate 108 H 108 H Respiratory Rate 24 H 24 H Blood Pressure 166/107 H 166/107 H 150/81 H Blood Pressure Mean 126 126 104 Pulse Ox 93 93 Oxygen Delivery Method Room Air Room Air 09/09/24 22:58 09/09/24 23:15 09/09/24 23:57 Temperature 101.8 F H Temperature Source Oral Pulse Rate 102 H 103 H Respiratory Rate 33 H 35 H Blood Pressure 150/81 H Blood Pressure Mean 104 Pulse Ox 94 Oxygen Delivery Method Room Air Room Air 09/10/24 00:00 09/10/24 00:00 09/10/24 00:00 Temperature 101.8 F H Temperature Source Oral Pulse Rate 101 H 101 H 103 H Respiratory Rate 37 H 43 H Blood Pressure 140/69 H Blood Pressure Mean 92 Pulse Ox 94 Oxygen Delivery Method Room Air 09/10/24 00:15 09/10/24 00:27 09/10/24 00:30 Temperature Temperature Source Pulse Rate 104 H 105 H 102 H Respiratory Rate 30 H 37 H 38 H Blood Pressure 150/81 H 140/69 H Blood Pressure Mean 100 88 Pulse Ox 94 Oxygen Delivery Method 09/10/24 00:47 09/10/24 01:00 09/10/24 01:00 Temperature 99.7 F H Temperature Source Oral Pulse Rate 97 94 Respiratory Rate 22 H 18 Blood Pressure 160/96 H 156/142 H Blood Pressure Mean 117 148 Pulse Ox 96 Oxygen Delivery Method Room Air 09/10/24 01:06 09/10/24 01:08 09/10/24 01:13 Temperature 99.7 F H Temperature Source Pulse Rate 92 93 91 Respiratory Rate 31 H 27 H 30 H Blood Pressure 160/96 H 160/96 H Blood Pressure Mean 115 117 Pulse Ox 96 Oxygen Delivery Method Positive well nourished and well developed General Appearance ED: well developed; Negative for pallor HEENT HEENT Narrative: Normocephalic atraumatic No tongue or lip swelling no oral lesions no airway edema or compromise No secondary findings in the posterior pharynx to suggest infection Eyes PERRL and EOMs intact bilaterally General Eye ED: Negative for scleral icterus Neck supple Neck Narrative: No nuchal rigidity or meningeal signs noted Chest Wall palpation of chest normal Resp Resp Narrative: Breath sounds are diminished throughout but overall clear to auscultation. Patient is tachypneic but otherwise there is no nasal flaring retractions or accessory muscle use Cardio regular rhythm Rate: tachycardic and other Other Details: Tachycardic rate with regular rhythm Radial and carotid pulses are equal and symmetric GI normal to inspection, nondistended, normoactive bowel sounds, non-tender, non-distended and no masses GI Narrative: Abdomen is soft nontender and nondistended with normal active bowel sounds No voluntary guarding or rigidity or pulsatile mass Auscultation: normoactive bowel sounds Palpation: soft Back/Spine no CVA tenderness Extremity Extremity Narrative: There is +1-2 pitting edema to the bilateral lower extremities that is slightly greater on the left than right Negative Homans' sign bilaterally Neuro oriented x3, CN's II-XII intact bilaterally and no sensory deficits noted Neuro Narrative: GCS of 15 Patient is awake and alert to person place and time He is slow to respond and has a flat affect but this is most likely due to masked facies from Parkinson's disease. There is no obvious focal neurologic deficit Sensorium / Orientation: alert Psych Psych Narrative: Patient has a flat affect Skin no rashes or lesions noted General Skin Exam: Negative for jaundice or pallor MDM MDM MDM Narrative Medical decision making narrative: Patient presented to the ER febrile and tachycardic. It was felt that the tachycardia and tachypnea were most likely related to his underlying fever. As he had no symptom complaints other than feeling fatigued/weak with urinary frequency there is high likelihood that patient has a UTI. However in order to check for potential pneumonia versus acute kidney injury versus acute blood lossanemia versus hepatic encephalopathy basic labs and a chest x-ray were obtained. Labs showed leukocytosis at 12 with left shift. Lactic acid was normal howeverand his Pro-Harshad was just under 1. The leukocytosis and left shift with procalcitonin value near 1 coupled with the 103 fever is concerning for systemicinfection. Secondary to his blood cultures and urine cultures were obtained. The patient was started on vancomycin and Zosyn. He was given 3 L of IV fluid which is slightly more than the 30 mL/kg fluid bolus recommended in septic protocol. The case was discussed with the hospitalist. He agrees to accept thepatient this time for continued care while we continue to track the blood and urine cultures. Based on his tachypnea as well as mild elevation in the liver enzymes he does recommend a CTA of the chest abdomen and pelvis be obtained to make sure there is no secondary findings of infection that were missed on blood work or imaging. The patient was given IV fluid as documented above along with Tylenol and Motrin for the fever. With resolution of the fever and tachycardia and tachypnea resolved. At this time as he is not requiring vasopressors or supplemental oxygen will be placed in the progressive care unit for continued evaluation and treatment History & Record Review Discussion w/independent historian: Patient and Family Lab Data Attestation: I reviewed the patient's lab results. Labs: Laboratory Results - last 24 hr 09/09/24 09/09/24 09/09/24 22:06 23:15 23:19 WBC 12.0 H RBC 5.04 Hgb 14.6 Hct 42.7 MCV 84.7 MCH 29.0 MCHC 34.2 RDW Std Deviation 40.3 RDW Coeff of Earl 13.1 Plt Count 198 MPV 10.7 Immature Gran % (Auto) 0.500 Neut % (Auto) 85.0 H Lymph % (Auto) 5.7 L Colbert % (Auto) 8.3 Eos % (Auto) 0.0 Baso % (Auto) 0.5 Absolute Neuts (auto) 10.2 H Absolute Lymphs (auto) 0.68 L Nucleated RBC % 0 PT 14.6 INR 1.1 Sodium 135 Potassium 4.0 Chloride 100 Carbon Dioxide 20.0 L Anion Gap 15 BUN 13 Creatinine 1.36 H Estim Creat Clear Calc 50.34 Est GFR (MDRD) Non-Af 56 L BUN/Creatinine Ratio 9.4 L Glucose 139 H Lactic Acid 1.7 Calcium 9.2 Total Bilirubin 1.85 H Direct Bilirubin 0.70 H AST 37 ALT 39 Alkaline Phosphatase 74 Ammonia Total Protein 7.2 Albumin 4.2 Globulin 3.0 Procalcitonin 0.94 H Urine Color Yellow Urine Clarity Sl. Cloudy Urine pH 6.0 Ur Specific [place]en[place] 1.015 Urine Protein 500 H Urine Glucose (UA) Normal Urine Ketones 50 H Urine Occult Blood 250 H Urine Nitrite Negative Urine Bilirubin Negative Urine Urobilinogen 1 H Ur Leukocyte Esterase 25 H Urine RBC 50-100 SEEN Urine WBC 5-10 SEEN Ur Squamous Epith Cells 0 SEEN Urine Bacteria 1+ Urine Mucus 1+ 09/09/24 23:38 WBC RBC Hgb Hct MCV MCH MCHC RDW Std Deviation RDW Coeff of Earl Plt Count MPV Immature Gran % (Auto) Neut % (Auto) Lymph % (Auto) Colbert % (Auto) Eos % (Auto) Baso % (Auto) Absolute Neuts (auto) Absolute Lymphs (auto) Nucleated RBC % PT INR Sodium Potassium Chloride Carbon Dioxide Anion Gap BUN Creatinine Estim Creat Clear Calc Est GFR (MDRD) Non-Af BUN/Creatinine Ratio Glucose Lactic Acid Calcium Total Bilirubin Direct Bilirubin AST ALT Alkaline Phosphatase Ammonia 16.2 Total Protein Albumin Globulin Procalcitonin Urine Color Urine Clarity Urine pH Ur Specific [place] Urine Protein Urine Glucose (UA) Urine Ketones Urine Occult Blood Urine Nitrite Urine Bilirubin Urine Urobilinogen Ur Leukocyte Esterase Urine RBC Urine WBC Ur Squamous Epith Cells Urine Bacteria Urine Mucus Radiography Diagnostic Testing: Clinical Impression(s) from Imaging Studies Chest X-Ray 09/09/24 23:25 IMPRESSION: Cardiomegaly. No acute process. Reading Location: [place] [address] Chest/Abdomen/Pelvis CTA 09/10/24 01:07 IMPRESSION: Fat containing right inguinal hernia without incarceration. Hepatomegaly with hepatic steatosis. Mild prostatomegaly. Right renal simple cyst measuring 3.5 cm. Mild diffuse spondylosis. Reading Location: [place] [address] Chest x-ray as interpreted by the emergency medicine physician reveals no acute infiltrate pneumothorax or pleural effusion Management Discussion w/another healthcare provider: Hospitalist Discharge Plan Dx/Rx/DC Orders Clinical Impression: Generalized weakness, Sepsis, Parkinson disease, UTI (urinary tract infection) Disposition Disposition: Acute Care Hospital [facility] Discharge Date/Time: 09/10/24 02:03 What to do if you have Problems For any increased pain, shortness of breath, bleeding, nausea or vomiting, chestpain, or any unexpected problems, contact your Primary Care Provider. Call [facility] ([phone]) or report to the closest Emergency Room. Call 911 if necessary. 09/10/24 0325 <Electronically signed by Derrek Chauhan DO> Cosigner Signature (if applicable): CC: Dr. Christo Warren MD ~ Signed [facility] Work Phone: [phone] 325-413806-20-2025 Consult note Author Andrade Abbott [facility] Note Date/Time September 10, 2024 3:24 am [facility] Medical Records Department [address] [place] [address] Pharmacokinetic/Renal -Consult 09/10/24 0239 MR#: [id number] Acct: [id number] Name: MARKUS STRATTON Rep #: [id number] : 1955 69 From: Andrade Abbott PCP: Dr. Christo Warren MD Status:ADM I N Y Location: [place] [address] Consult Antibiotic Management Pharmacy has been consulted to manage selected antibiotic: Vancomycin Type of Intervention Type of Consult: New start Suspected Infection Suspected Infection: Sepsis Labs Labs: Sodium 135 mmol/L (133-145) 09/09/24 22:06 Potassium 4.0 mmol/L (3.3-5.1) 09/09/24 22:06 Chloride 100 mmol/L (98-108) 09/09/24 22:06 Carbon Dioxide 20.0 mmol/L (21.0-32.0) L 09/09/24 22:06 Anion Gap 15 (5-15) 09/09/24 22:06 BUN 13 mg/dL (4-19) 09/09/24 22:06 Creatinine 1.36 mg/dL (0.70-1.20) H 09/09/24 22:06 Est GFR (MDRD) Non-Af 56 (>60) L 09/09/24 22:06 BUN/Creatinine Ratio 9.4 RATIO (10-20) L 09/09/24 22:06 Glucose 139 mg/dL (70-99) H 09/09/24 22:06 Microbiology Microbiology: Microbiology 09/09/24 23:47 Mucosa - Nose SARS-CoV-2, Influenza & RSV (PCR) - Final Dosing Weight Weight used for dosin kg Estimated Creatinine Clearance Estimated Creatinine Clearance: 50 Goal Trough Goal Trough: 15-20 mcg/mL Pharmacy Plan for Drug Dosing Pharmacy Plan for Drug Dosing: Pharmacy Service will continue to monitor and adjust dosing as required. Follow-Up Labs Follow-Up Labs: Trough: Vancomycin Date/Time Labs Ordered Labs to be done on [date and time ordered]: 09/11/24 @1130 09/10/24 0240 <Electronically signed by Andrade Calzada ds> Date _ Andrade Abbott 09/10/24 0324 <Electronically signed by Camden Montoya DO> Cosigner Signature (if applicable): Date de AxelCamden DO CC: ~ Signed [facility] Work Phone: [phone]) 160-788006-20-2025 Evaluation note* Diagnosis Onset Date Resolution Status Admit Date Acute cystitis with hematuria acute September 10, 2024 1:33am Acute metabolic encephalopathy acute September 10, 2024 1:33am Bacteremia acute September 10 1:33am Cellulitis acute September 10 1:33am Elevated procalcitonin acute 2024 1:33am Fever acute September 10 1:33am Generalized weakness acute September 10, 2024 1:33am Leukocytosis acute September 10 1:33am Obesity (BMI 30.0-34.9) acute J 2024 1:33am Parkinson disease acute September 102024 1:33am Sepsis acute September 10 1:33am Urinary frequency acute September 102024 1:33am UTI (urinary tract infection) acute September 10, 2024 1:33am [facility] Work Phone: 1(470) 386-200206-20-2025 Discharge summary [facility] Medical Records Department [address] [place] [address] Emergency Department Summary 09/10/24 MR#: [id number] Acct: [id number] Name: MARKUS STRATTON Rep #: [id number] : 1955 69 From: Derrek Chauhan DO PCP: Dr. Christo Warren MD Status:ADM I N Location: [place] [address] HPI History of Present Illness Chief Complaint: Confusion Informant: patient and family Narrative Narrative: Patient is a 69-year-old male with past medical history of Parkinson's disease. According to familyhe told them that he did not feel well and left work early. Family states that they went to check on the patient as he lives alone and he seemed confused from his baseline. They state that he is alsobeen having frequent urination. Family reports that it is unknown if he has been taking hismedication as directed. However because of his increased confusion and fatigue they have concern for potential infection and he was brought in for evaluation Upon arrival to the ER the patient is awake alert and oriented to person place and time. He states that he feels tired at this time but otherwise has no complaints PFSH PFS Medical History Non-smoker Family history of malignant neoplasm of colon in relative diagnosed when youngerthan 50 years of age Parkinson disease Home Medications ?Medication ?Instructions ?Recorded ?Last Taken ?Type carbidopa 10 mg-levodopa 100 mg 1 tab PO TID Anti park insons 01/05/24 09/08/24 History tablet pramipexole 0.5 mg tablet 0.5 mg PO QHS Antiparkinsons 01/05/24 09/08/24 History gabapentin 300 mg capsule 300 mg PO .evening Neuropath y 09/10/24 09/08/24 History Allergy/AdvReac Type Severity Reaction Status Date / Time No Known Allergies Allergy Verified 09/10/24 02:49 Family History Daughter Colon cancer, Onset Age: 19 At age 17yrs, Tre[facility] at [facility] Surgical History History of carpal tunnel surgery of right wrist History of carpal tunnel surgery of left wrist History of colonoscopy Social History current occupational status: employed current occupation: [employer] Smoking Status: Never smoker substance use type: does not use ROS ROS ED Constitutional Constitutional ED: Reports other Details: Positive fatigue ; Denies chills or fever(s) Eyes Eyes: Denies change in vision ENT ENT ED: Denies rhinorrhea or sore throat Cardiovascular Cardiovascular: Denies chest pain Respiratory/Chest Respiratory/Chest: Denies cough or dyspnea Gastrointestinal Gastrointestinal: Denies abdominal pain, diarrhea, nausea or vomiting Genitourinary Genitourinary ED: Reports urinary frequency; Denies dysuria Musculoskeletal Musculoskeletal: Denies myalgias Integumentary Denies rash Neurologic Neurologic: Reports headache(s) and weakness Hematologic/Lymphatic Hematologic/Lymphatic: Denies easy bleeding or easy bruising EXAM Physical Exam Const Vital Signs: 09/09/24 21:54 09/09/24 21:58 09/09/24 22:54 Temperature 103.1 F H 103.1 F H Temperature Source Oral Oral Pulse Rate 108 H 108 H Respiratory Rate 24 H 24 H Blood Pressure 166/107 H 166/107 H 150/81 H Blood Pressure Mean 126 126 104 Pulse Ox 93 93 Oxygen Delivery Method Room Air Room Air 09/09/24 22:58 09/09/24 23:15 09/09/24 23:57 Temperature 101.8 F H Temperature Source Oral Pulse Rate 102 H 103 H Respiratory Rate 33 H 35 H Blood Pressure 150/81 H Blood Pressure Mean 104 Pulse Ox 94 Oxygen Delivery Method Room Air Room Air 09/10/24 00:00 09/10/24 00:00 09/10/24 00:00 Temperature 101.8 F H Temperature Source Oral Pulse Rate 101 H 101 H 103 H Respiratory Rate 37 H 43 H Blood Pressure 140/69 H Blood Pressure Mean 92 Pulse Ox 94 Oxygen Delivery Method Room Air 09/10/24 00:15 09/10/24 00:27 09/10/24 00:30 Temperature Temperature Source Pulse Rate 104 H 105 H 102 H Respiratory Rate 30 H 37 H 38 H Blood Pressure 150/81 H 140/69 H Blood Pressure Mean 100 88 Pulse Ox 94 Oxygen Delivery Method 09/10/24 00:47 09/10/24 01:00 09/10/24 01:00 Temperature 99.7 F H Temperature Source Oral Pulse Rate 97 94 Respiratory Rate 22 H 18 Blood Pressure 160/96 H 156/142 H Blood Pressure Mean 117 148 Pulse Ox 96 Oxygen Delivery Method Room Air 09/10/24 01:06 09/10/24 01:08 09/10/24 01:13 Temperature 99.7 F H Temperature Source Pulse Rate 92 93 91 Respiratory Rate 31 H 27 H 30 H Blood Pressure 160/96 H 160/96 H Blood Pressure Mean 115 117 Pulse Ox 96 Oxygen Delivery Method Positive well nourished and well developed General Appearance ED: well developed; Negative for pallor HEENT HEENT Narrative: Normocephalic atraumatic No tongue or lip swelling no oral lesions no airway edema or compromise No secondary findings in the posterior pharynx to suggest infection Eyes PERRL and EOMs intact bilaterally General Eye ED: Negative for scleral icterus Neck supple Neck Narrative: No nuchal rigidity or meningeal signs noted Chest Wall palpation of chest normal Resp Resp Narrative: Breath sounds are diminished throughout but overall clear to auscultation. Patient is tachypneic but otherwise there is no nasal flaring retractions or accessory muscle use Cardio regular rhythm Rate: tachycardic and other Other Details: Tachycardic rate with regular rhythm Radial and carotid pulses are equal and symmetric GI normal to inspection, nondistended, normoactive bowel sounds, non-tender, non- distended and no masses GI Narrative: Abdomen is soft nontender and nondistended with normal active bowel sounds No voluntary guarding or rigidity or pulsatile mass Auscultation: normoactive bowel sounds Palpation: soft Back/Spine no CVA tenderness Extremity Extremity Narrative: There is +1-2 pitting edema to the bilateral lower extremities that is slightly greater on the leftthan right Negative Homans' sign bilaterally Neuro oriented x3, CN's II-XII intact bilaterally and no sensory deficits noted Neuro Narrative: GCS of 15 Patient is awake and alert to person place and time He is slow to respond and has a flat affect but this is most likely due to masked facies from Parkinson's disease. There is no obvious focal neurologic deficit Sensorium / Orientation: alert Psych Psych Narrative: Patient has a flat affect Skin no rashes or lesions noted General Skin Exam: Negative for jaundice or pallor MDM MDM MDM Narrative Medical decision making narrative: Patient presented to the ER febrile and tachycardic. It was felt that the tachycardia and tachypneawere most likely related to his underlying fever. As he had no symptom complaints other than feeling fatigued/weak with urinary frequency there is high likelihood that patient has a UTI. However in order to check for potential pneumonia versus acute kidney injury versus acute blood lossanemia versus hepatic encephalopathy basic labs and a chest x-ray were obtained. Labs showed leukocytosis at 12 with left shift. Lactic acid was normal howeverand his Pro-Harshad was just under 1. The leukocytosis and left shift with procalcitonin value near 1 coupled with the 103 fever is concerning for systemicinfection. Secondary to his blood cultures and urine cultures were obtained. The patient was started on vancomycin and Zosyn. He was given 3 L of IV fluid which is slightly more than the 30 mL/kg fluid bolus recommended in septic protocol. The case was discussed with the hospitalist. He agrees to accep t thepatient this time for continued care while we continue to track the blood and urine cultures. Based on his tachypnea as well as mild elevation in the liver enzymes he does recommend a CTA of thechest abdomen and pelvis be obtained to make sure there is no secondary findings of infection that were missed on blood work or imaging. The patient was given IV fluid as documented above along with Tylenol and Motrin for the fever. With resolution of the fever and tachycardia and tachypnea resolved. At this time as he is not requiring vasopressors or supplemental oxygen will be placed in the progressive care unit for continued evaluation and treatment History & Record Review Discussion w/independent historian: Patient and Family Lab Data Attestation: I reviewed the patient's lab results. Labs: Laboratory Results - last 24 hr 09/09/24 09/09/24 09/09/24 22:06 23:15 23:19 WBC 12.0 H RBC 5.04 Hgb 14.6 Hct 42.7 MCV 84.7 MCH 29.0 MCHC 34.2 RDW Std Deviation 40.3 RDW Coeff of Earl 13.1 Plt Count 198 MPV 10.7 Immature Gran % (Auto) 0.500 Neut % (Auto) 85.0 H Lymph % (Auto) 5.7 L Colbert % (Auto) 8.3 Eos % (Auto) 0.0 Baso % (Auto) 0.5 Absolute Neuts (auto) 10.2 H Absolute Lymphs (auto) 0.68 L Nucleated RBC % 0 PT 14.6 INR 1.1 Sodium 135 Potassium 4.0 Chloride 100 Carbon Dioxide 20.0 L Anion Gap 15 BUN 13 Creatinine 1.36 H Estim Creat Clear Calc 50.34 Est GFR (MDRD) Non-Af 56 L BUN/Creatinine Ratio 9.4 L Glucose 139 H Lactic Acid 1.7 Calcium 9.2 Total Bilirubin 1.85 H Direct Bilirubin 0.70 H AST 37 ALT 39 Alkaline Phosphatase 74 Ammonia Total Protein 7.2 Albumin 4.2 Globulin 3.0 Procalcitonin 0.94 H Urine Color Yellow Urine Clarity Sl. Cloudy Urine pH 6.0 Ur Specific [place]en[place] 1.015 Urine Protein 500 H Urine Glucose (UA) Normal Urine Ketones 50 H Urine Occult Blood 250 H Urine Nitrite Negative Urine Bilirubin Negative Urine Urobilinogen 1 H Ur Leukocyte Esterase 25 H Urine RBC 50-100 SEEN Urine WBC 5-10 SEEN Ur Squamous Epith Cells 0 SEEN Urine Bacteria 1+ Urine Mucus 1+ 09/09/24 23:38 WBC RBC Hgb Hct MCV MCH MCHC RDW Std Deviation RDW Coeff of Earl Plt Count MPV Immature Gran % (Auto) Neut % (Auto) Lymph % (Auto) Colbert % (Auto) Eos % (Auto) Baso % (Auto) Absolute Neuts (auto) Absolute Lymphs (auto) Nucleated RBC % PT INR Sodium Potassium Chloride Carbon Dioxide Anion Gap BUN Creatinine Estim Creat Clear Calc Est GFR (MDRD) Non-Af BUN/Creatinine Ratio Glucose Lactic Acid Calcium Total Bilirubin Direct Bilirubin AST ALT Alkaline Phosphatase Ammonia 16.2 Total Protein Albumin Globulin Procalcitonin Urine Color Urine Clarity Urine pH Ur Specific [place] Urine Protein Urine Glucose (UA) Urine Ketones Urine Occult Blood Urine Nitrite Urine Bilirubin Urine Urobilinogen Ur Leukocyte Esterase Urine RBC Urine WBC Ur Squamous Epith Cells Urine Bacteria Urine Mucus Radiography Diagnostic Testing: Clinical Impression(s) from Imaging Studies Chest X-Ray 09/09/24 23:25 IMPRESSION: Cardiomegaly. No acute process. Reading Location: [place] [address] Chest/Abdomen/Pelvis CTA 09/10/24 01:07 IMPRESSION: Fat containing right inguinal hernia without incarceration. Hepatomegaly with hepatic steatosis. Mild prostatomegaly. Right renal simple cyst measuring 3.5 cm. Mild diffuse spondylosis. Reading Location: [place] [address] Chest x-ray as interpreted by the emergency medicine physician reveals no acute infiltrate pneumothorax or pleural effusion Management Discussion w/another healthcare provider: Hospitalist Discharge Plan Dx/Rx/DC Orders Clinical Impression: Generalized weakness, Sepsis, Parkinson disease, UTI (urinary tract infection) Disposition Disposition: Acute Care Hospital [facility] Discharge Date/Time: 09/10/24 02:03 What to do if you have Problems For any increased pain, shortness of breath, bleeding, nausea or vomiting, chestpain, or any unexpected problems, contact your Primary Care Provider. Call [facility] ([phone]) or report tothe closest Emergency Room. Call 911 if necessary. 09/10/24 0325 Cosigner Signature (if applicable): CC: Dr. Christo Warren MD ~ Signed [facility]-20-2025 Consult note [facility] Medical Records Department [address] [place] [address] Pharmacokinetic/Renal -Consult 09/10/24 0239 MR#: [id number] Acct: [id number] Name: MARKUS STRATTON Rep #: [id number] : 1955 69 From: Andrade Abbott PCP: Dr. Christo Warren MD Status:ADM I N Y Location: [place] [address] Consult Antibiotic Management Pharmacy has been consulted to manage selected antibiotic: Vancomycin Type of Intervention Type of Consult: New start Suspected Infection Suspected Infection: Sepsis Labs Labs: Sodium 135 mmol/L (133-145) 09/09/24 22:06 Potassium 4.0 mmol/L (3.3-5.1) 09/09/24 22:06 Chloride 100 mmol/L (98-108) 09/09/24 22:06 Carbon Dioxide 20.0 mmol/L (21.0-32.0) L 09/09/24 22:06 Anion Gap 15 (5-15) 09/09/24 22:06 BUN 13 mg/dL (4-19) 09/09/24 22:06 Creatinine 1.36 mg/dL (0.70-1.20) H 09/09/24 22:06 Est GFR (MDRD) Non-Af 56 (>60) L 09/09/24 22:06 BUN/Creatinine Ratio 9.4 RATIO (10-20) L 09/09/24 22:06 Glucose 139 mg/dL (70-99) H 09/09/24 22:06 Microbiology Microbiology: Microbiology 09/09/24 23:47 Mucosa - Nose SARS-CoV-2, Influenza & RSV (PCR) - Final Dosing Weight Weight used for dosin kg Estimated Creatinine Clearance Estimated Creatinine Clearance: 50 Goal Trough Goal Trough: 15-20 mcg/mL Pharmacy Plan for Drug Dosing Pharmacy Plan for Drug Dosing: Pharmacy Service will continue to monitor and adjust dosing as required. Follow-Up Labs Follow-Up Labs: Trough: Vancomycin Date/Time Labs Ordered Labs to be done on [date and time ordered]: 09/11/24 @1130 09/10/24 0240 ds> Date _ Andrade Abbott 09/10/24 0324 nzo DO> Cosigner Signature (if applicable): Date Camden Zelaya DO CC: ~ Signed [facility]06-20-2025 Radiology Diagnostic study note [facility] Imaging Services [address] [place] [address] CTA Chst, Abd, Pel W and/or WO MR#: [id number] Acct: [id number] Name: MARKUS STRATTON Rep #: [id number] : 1955 M 69 From: Chavo Rubio MD PCP: Dr. Christo Warren MD Status: ADM I N Study:CTA Chst, Abd, Pel W and/or WO Date of Exam: 09/10/24 Exam# [id number] Ordering Dr: Tosha Chauhan DO PROCEDURE: CTA CHST, ABD, PEL W AND/OR WO 09/10/2024 REASON FOR EXAM: SEPSIS TECHNIQUE: CTA CHST, ABD, PEL W AND/OR WO coronal and Sagittal reconstruction series were provided. One or more dose reduction techniques were used (e.g., Automated exposure control, adjustment of the mA and/or kV according to patient size, use of iterative reconstruction technique. CONTRAST: Isovue-350 VOLUME: 100 mL RADIATION DOSE SUMMARY: CTDlvol: 17.39 mGy DLP: 1508 mGycm COMPARISON: 09/09/2024. FINDINGS: Fat containing right inguinal hernia without incarceration. Hepatomegaly with hepatic steatosis. Mild prostatomegaly. Right renal simple cyst measuring 3.5 cm. Mild diffuse spondylosis. Normal enhancement of the main pulmonary artery and right and left pulmonary arteries. Normal enhancement of the bilateral peripheral pulmonary arteries. There is no demonstrated pulmonary embolism. Normal thoracic aorta and visualized great vessels. There is no demonstrated aortic dissection. Normal heart and pericardium. Normal mediastinum. Normal hilar regions. Normal visualized trachea and bronchi. The lungs are well expanded. Normal pulmonary parenchyma. Normal pleura. Normal gallbladder and extrahepatic biliary system. Normal spleen. Normal pancreas. Normal bilateral adrenal glands. Normal size of the right kidney. There is no right renal mass. There are no right renal calculi. There is no right hydronephrosis. Normal visualized right ureter. Normal size of the left kidney. There is no left renal mass. There are no leftrenal calculi. There is no left hydronephrosis. Normal visualized left ureter. Normal visualized stomach. Normal small intestine. Normal colon. The appendix is visualized and appears normal. There is no demonstrated peritoneal fluid. Normal abdominal aorta. Normal inferior vena cava. Normal retroperitoneum. Normal urinary bladder. There is no pelvic mass lesion or lymphadenopathy. There is no pelvic fluid. CT/CTA Chst, Abd, Pel W and/or WO IMPRESSION: Fat containing right inguinal hernia without incarceration. Hepatomegaly with hepatic steatosis. Mild prostatomegaly. Right renal simple cyst measuring 3.5 cm. Mild diffuse spondylosis. Reading Location: [place] [address] CC: Dr. Christo Warren MD; Derrek Chauhan DO ~ Consulting Sales Executive: Signed [facility]2025 Radiology Diagnostic study note [facility] Imaging Services [address] [place], [place] [id number] Chest 1 View (Portable) MR#: [id number] Acct: [id number] Name: MARKUS STRATTON Rep #: [id number] : 1955 M 69 From: Chavo Rubio MD PCP: Dr. Christo Warren MD Status: PRE E R Study:Chest 1 View (Portable) Date of Exam: 09/09/24 Exam# [id number] Ordering Dr: Tosha Chauhan DO PROCEDURE: CHEST 1 VIEW (PORTABLE) 09/09/2024 REASON FOR EXAM: FEVER TECHNIQUE: Frontal view of the chest. COMPARISON: None FINDINGS: The lungs are expanded. There is no demonstrated parenchymal abnormality. There is no demonstrated pleural abnormality. The heart is enlarged. Normal mediastinum and mone. Normal visualized pulmonary arteries. Normal visualized aortic arch and descending thoracic aorta. Normal visualized thoracic spine. Normal visualized ribs, clavicles, and shoulders. There is no demonstrated abnormality of the visualized soft tissue structures ofthe upper abdomen. RAD/Chest 1 View (Portable) IMPRESSION: Cardiomegaly. No acute process. Reading Location: [place] [address] CC: Dr. Christo Warren MD; DO Prasanna Woodruff Consulting Sales Executive: Signed [facility]06-18-2025 NoteHNO ID: [id number] Author: PAYAL DIAZ MA Service: ? Author Type: Bilingual Medical Assistant Type: Progress Notes Filed: 09/08/2024 14:45 Note Text: POPULATION HEALTH NAVIGATION OUTREACH Action/FYI Patient is on [employer] list for below and needs appointment to address: Medicare Advantage Annual Wellness Visit No results found for: HBA1C Last 1 Encounter BP Readings: Date: BP: 08/05/2024 144/87 Patient due for: Medicare Annual Wellness Visit Follow up Appointment - Return in about 4 weeks (around 05/10/2024). MyChart Active: Yes Spoke to patient. Scheduled with [...] Patient scheduled/pended orders: Follow-up Appointment 11/16/2024 in [facility] with CHRISTO WARREN - Follow up - BP, Please address due care 02/21/2025 in [facility] with NIKKI JAVIER - 5 Month follow up Navigation Signature: Payal Diaz MA September 08, 2024 2:35 [facility]06-18-2025 History of Present illness Narrative* Payal Diaz MA - 09/08/2024 2:35 PM EDT POPULATION HEALTH NAVIGATION OUTREACH Action/FYI Patient is on [employer] Workbench list for below and needs appointment to [...] Patient scheduled/pended orders: Follow-up Appointment 11/16/2024 in [facility] with CHRISTO WARREN - Follow up - BP, Please address due care 02/21/2025 in [facility] with NIKKI JAVIER - 5 Month follow up Navigation Signature: Payal Diaz MA September 08, 2024 2:35 PM documented in this encounterTr[facility]06-18-2025 NotePatient Outreach (NETNAV) MARKUS STRATTON ([id number]) 1955 M T Date Time Provider Department 09/08/24 PAYAL DIAZ During your visit today, we recorded the following information about you: Payal Diaz MA 09/08/2024 2:45 PM Signed POPULATION HEALTH NAVIGATION OUTREACH Action/FYI Patient is on [employer] Workbench list for below and needs appointment to address: Medicare Advantage Annual Wellness Visit No results found for: HBA1C Last 1 Encounter BP Readings: Date: BP: 08/05/2024 144/87 Patient due for: Medicare Annual Wellness Visit Follow up Appointment - Return in about 4 weeks (around 05/10/2024). Joet Active: Yes Spoke to patient. Scheduled with [...] Patient scheduled/pended orders: Follow-up Appointment 11/16/2024 in [facility] with CHRISTO WARREN - Follow up - BP, Please address due care 02/21/2025 in [facility] with NIKKI JAVIER - 5 Month follow up Navigation Signature: Payal Diaz MA September 08, 2024 2:35 PM Allergies As of Date: 09/08/2024 (No Known Allergies) Date Reviewed: 08/05/2024 Reviewed by: Shakira Pal LPN - Fully Assessed Reason for Visit: Population Health Navigation Outreach [3910] Cmt: [employer] Work - Alvin PCSA Prescriptions as of 09/08/2024 - vitamin B complex (B COMPLEX 1 [...] once daily. Problem List As Of Date 09/08/2024 Noted Resolved ED (erectile dysfunction) [N52.9] 01/23/2011 [...] legs syndrome) [G25.81] 09/08/2023 Encounter Status:Closed by PAYAL DIAZ on 09/08/24[facility]06-16-[facility] History of Present illness Narrative* Mis Montgomery, PT - 09/06/2024 7:18 PM EDT Program_ID:[id number] Access Code: [email or web address] URL: [email or web address] Date: 09-06-2024 Prepared By: Mis Montgomery Program [...] weekly - 2-3 sets - 10 reps * Mis Montgomery, PT - 09/06/2024 6:44 PM EDT Images from the original note were not [...] walking in the community, recreational activities, working (walkingslowly) . The patient presents with impairments in flexibility, gait, independence in exercise, over all function, posture, and symptom management. PROMIS (Patient-Reported [...] & flexibility deficits affecting his gait & mobility;he also presents with core weakness (abdominals & [...] neck/shoulder muscles to WNL to improve ability tomaintain proper posture and improve mechanics for gait. [...] Planned: 6 Planned Treatment Interventions: Therapeutic exercise (64593), Neuromuscular re- education (36679), Therapeutic activities (30848), Self-half-way management (65098), Gait Training (25043), Patient/Family/Caregiver Education, Body Mechanics Training PLAN FOR [...] for RLS and a sleep aide at [facility]. 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 I am not sure he is supposed to be on it. [facility]06-10-2025 Telephone encounter Note* Telephone Encounter - Val Chacon MA - 08/31/2024 9:58 AM EDT Patient has been identified by name and date of : yes Patient phones for refill(s): Requested Prescriptions Pending Prescriptions Disp Refills pramipexole (MIRAPEX) 0.5 mg tablet 90 tablet 1 Sig: Take 1 tablet by mouth daily at bedtime. Date of last office visit in primary care: 04/12/2024 Date of next office visit in primary care: Visit date not found Please advise. Thank you. Val Chacon MA. [facility]06-10-2025 Telephone encounter Note* Telephone Encounter - Jessica Sanchez - 08/31/2024 9:10 AM EDT Patient asking for a refill on a medication that is : pramipexole 0.75 mg tablet. Patient unsure of what dosage he has been taking. Patient last seen 04/12/24 Future visit scheduled: no PHARMACY: [facility]05-28-2025 Telephone encounter Note* Telephone Encounter - Val Swan RN - 08/18/2024 12:02 PM EDT This RN placed call back to patient and relayed that TW would like him to stay at current dose thathe feels good at (1 tablet BID). No need to continue the titration. Pt appreciated call back to verify. We ended call pleasantly. GAY Moy, RN, BA T [facility] Work Phone: [phone] Miscellaneous Notes* Telephone Encounter - Val Swan RN - 08/18/2024 12:02 PM EDT This RN placed call back to patient and relayed that TW would like him to stay at current dose thathe feels good at (1 tablet BID). No need to continue the titration. Pt appreciated call back to verify. We ended call pleasantly. GAY Moy, RN, BA * Telephone Encounter - Nikki Javier MD - 08/18/2024 11:33 AM EDT May have miscommunicated, he doesn't need to stop it, only stop the titration at the dose that is helping and then continue on that dose rather than continuing to increase. If he feels good on 1 pilltwice a day should stay on that dose. * Telephone Encounter - Val Swan RN - 08/18/2024 10:50 AM EDT This RN called and spoke to patient [...] ended call pleasantly. GAY Moy, RN, BA * Telephone Encounter - Nikki Javier MD - 08/18/2024 10:17 AM EDT Thanks for the update. Can you let [...] want to make sure he remembers! Thanks * Telephone Encounter - Roberta Paris - 08/18/2024 9:46 AM EDT Call received for Nikki Javier MD regarding Markus Stratton 1955. Caller: Self Patient Identified by Name and : Yes Was permission obtained from patient ? NA Reason for Call: Other: Carlitos wanted to inform Dr. Javier that he is doing well with his current medication. His symptoms are improving, and he feels more energetic throughout the day. Last Office Visit: 08/05/2024 Last [facility] Health visit: Visit date not found Next scheduled appointment: 02/21/2025 Best number to reach caller: [phone] Best time to reach caller: any Is it OK to leave a detailed voice message? Yes Roberta Paris documented in this encounterTrinity [facility]05-28-2025 Telephone encounter Note * Telephone Encounter - Nikki Javier MD - 08/18/2024 11:33 AM EDT May have miscommunicated, he doesn't need to stop it, only stop the titration at the dose that is helping and then continue on that dose rather than continuing to increase. If he feels good on 1 pilltwice a day should stay on that dose. [facility]05-28-2025 Telephone encounter Note* Telephone Encounter - Val Swan RN - 08/18/2024 10:50 AM EDT This RN called and spoke to patient [...] ended call pleasantly. GAY Moy, RN, BA [facility]05-28-2025 Telephone encounter Note* Telephone Encounter - Nikki Javier MD - 08/18/2024 10:17 AM EDT Thanks for the update. Can you let [...] want to make sure he remembers! Thanks [facility]05-28-2025 Telephone encounter Note* Telephone Encounter - Roberta Paris - 08/18/2024 9:46 AM EDT Call received for Nikki Javier MD regarding Markus Stratton 1955. Caller: Self Patient Identified by Name and : Yes Was permission obtained from patient ? NA Reason for Call: Other: Carlitos wanted to inform Dr. Javier that he is doing well with his current medication. His symptoms are improving, and he feels more energetic throughout the day. Last Office Visit: 08/05/2024 Last [facility] Health visit: Visit date not found Next scheduled appointment: 02/21/2025 Best number to reach caller: [phone] Best time to reach caller: any Is it OK to leave a detailed voice message? Yes Roberta Paris [facility]05-15-2025 Instructions* Patient Instructions* Nikki Javier MD - 08/05/2024 12:22 PM EDT Let's start a medication called carbidopa/levodopa. It's a symptomatic medication for Parkinson's Disease that helps replace dopamine to improve movement symptoms. Take a half pill three times a day for the first week, then increase to a full pill three times a day. Depending on how you respond youcan go up to 1.5 pills three times [...] nausea, light-headedness, hallucinations, fatigue, or extra movements (dyskine brittanie). Breakfast Lunch Dinner Week 1 1/2 1/2 1/2 Week 2-3 1 1 1 Week 4-5 1.5 1.5 1.5 Week 6 and on 2 2 2 You can stop at a lower dose if you feel great on it or have side effects Add a third pill of gabapentin - take 1 around 6 PM and 2 around 9-10 PM. documented in this encounterTrinity Health [facility]05-15-2025 NoteHNO ID: [id number] Author: NIKKI JAVIER MD Service: ? Author [...] timing. Gave info on PD research at [facility]. HPI Current Issues - Has been [...] Discussed with Patient: YES Nikki Javier MD [facility]-2025 History of Present illness Narrative* Nikki Javier MD - 08/05/2024 12:10 PM EDT FOLLOW UP NOTE Subjective Markus Stratton is [...] timing. Gave info on PD research at [facility]. HPI Current Issues - Has been [...] evening and 2 pills at bedtime 270 capsule2 lisinopril (ZESTRIL) 10 mg tablet Take 1 [...] Discussed with Patient: YES Nikki Javier MD [facility] Neurology * Kacy Wood LPN - 08/05/2024 11:43 AM EDT documented in this encounterTrinity Health [facility]05-15-2025 NoteHNO ID: [id number] Author: KACY WOOD LPN Service: ? Author Type: LICENSED NURSE Type: Progress Notes Filed: 08/05/2024 15:11 Note Text:[facility]04-28-2025 NoteHNO ID: [id number] Author: ANTIONE OSWALD CPhT Service: ? Author Type: School Guidance Counselor Type: Progress Notes Filed: 07/19/2024 10:55 Note [...] 07/19/24 for 90 days Antione Oswald CPhT [facility] TeamSt. [facility]04-28-2025 NotePatient Outreach (PHPOHE) MARKUS STRATTON ([id number]) 1955 [facility] Date Time Provider Department 07/19/24 CHRISTO WARREN PHPOHE During your visit today, we recorded the [...] 07/19/24 for 90 days Antione Oswald CPhT [facility] Team Allergies As of Date: 07/19/2024 (No Known Allergies) Date Reviewed: 05/01/2024 Reviewed by: Meron Cooper APRN.ROLL CONTOUR GRINDER - Fully Assessed Reason for Visit: Allied [...] 09/08/2023 Encounter Status:Closed by ANTIONE OSWALD on 07/19/24[facility] 06-11-2024 NoteHNO ID: [id number] Author: ELBA BARRON RN Service: ? Author [...] Elba Barron RN June 11, 2024 11:[address] [facility]03-21-2025 History of Present illness Narrative* Elba Barron RN - 06/11/2024 11:09 AM EDT CDM ENROLLMENT Provider Action / FYI: Patient [...] 11, 2024 11:11 AM documented in this encounterTrinity Health [facility]03-21-2025 NotePatient Outreach (WILVERCMG) MARKUS STRATTON ([id number]) 1955 M T Date Time Provider Department 06/11/24 ELBA BARRON [...] Date Reviewed: 05/01/2024 Reviewed by: Meron Cooper APRN.ROLL CONTOUR GRINDER - Fully Assessed Prescriptions as of 06/11/2024 [...] 09/08/2023 Encounter Status:Closed by ELBA BARRON on 06/11/24[facility] 05-10-2024 Miscellaneous Notes* Telephone Encounter - Clau Fam LPN - 05/10/2024 12:30 PM EST Patient notified. * Telephone Encounter - Christo Warren MD - 05/10/2024 11:35 AM EST Given his parkinson's issues and bp, we are limited with cough meds. Almost all the cough meds are now over the counter. I would recommend sticking with delsym or mucinex dm * Telephone Encounter - Ignacia Bryant RN - 05/10/2024 10:33 AM EST Patient calling to request different cough medication. Patient was seen at [facility] [place] on 05/01/24 for cough and azithromycin and [...] headache dizziness, wheezing or SOB. Uses [facility]. Please call patient with PCP response. [phone] Ignacia Bryant RN documented in this encounterTrinity Health [facility]02-17-2025 Telephone encounter Note * Telephone Encounter - Clau Fam LPN - 05/10/2024 12:30 PM EST Patient notified. [facility]02-17-2025 Telephone encounter Note* Telephone Encounter - Christo Warren MD - 05/10/2024 11:35 AM EST Given his parkinson's issues and bp, we are limited with cough meds. Almost all the cough meds are now over the counter. I would recommend sticking with delsym or mucinex dm [facility]02-17-2025 Telephone encounter Note* Telephone Encounter - Ignacia Bryant RN - 05/10/2024 10:33 AM EST Patient calling to request different cough medication. Patient was seen at [facility] [place] on 05/01/24 for cough and azithromycin and [...] headache dizziness, wheezing or SOB. Uses [facility]. Please call patient with PCP response. [phone] Ignacia Bryant RN [facility]02-13-2025 NoteHNO ID: [id number] Author: ALEXANDRA BRANTLEY MA Service: ? Author Type: Bilingual Medical Assistant Type: Progress Notes Filed: 05/06/2024 15:53 Note Text: POPULATION HEALTH NAVIGATION OUTREACH Action/FYI Spoke to patient. He declines scheduling Annual Wellness. He states he had a colonoscopy two months ago at [facility]. Found report in Scanned documents and updated [...] Alexandra Brantley MA May 06, 2024 3:51 [facility]02-13-2025 History of Present illness Narrative* Alexandra Brantley MA - 05/06/2024 3:51 PM EST POPULATION HEALTH NAVIGATION OUTREACH Action/FYI Spoke to patient. He declines scheduling Annual Wellness. He states he had a colonoscopy two monthsago at [facility]. Found report in Scanned documents and updated [...] 06, 2024 3:51 PM documented in this encounterTrinity Health [facility]02-13-2025 NotePatient Outreach (NETNAV) MARKUS STRATTON ([id number]) 1955 [facility] Date Time Provider Department 05/06/24 ALEXANDRA BRANTLEY During your visit today, we recorded the following information about you: Alexandra Brantley MA 05/06/2024 3:53 PM Signed POPULATION HEALTH NAVIGATION OUTREACH Action/FYI Spoke to patient. He declines scheduling Annual Wellness. He states he had a colonoscopy two months ago at [facility]. Found report in Scanned documents and updated [...] Date Reviewed: 05/01/2024 Reviewed by: Meron Cooper APRN.ROLL CONTOUR GRINDER - Fully Assessed Reason for Visit: Population [...] 09/08/2023 Encounter Status:Closed by ALEXANDRA BRANTLEY on 05/06/24[facility] 05-01-2024 NoteHNO ID: [id number] Author: MERON COOPER APRN.ROLL CONTOUR GRINDER Service: ? Author Type: Nurse Practitioner Type: [...] go to ER for evaluation. Meron Cooper APRN.ROLL CONTOUR GRINDER This note was partially generated using [employer] voice recognition system, and there may be some incorrect words, spellings, and punctuation that were not noted in checking the note before saving.[facility]02-08-2025 History of Present illness Narrative* Meron Cooper APRN.ADRIENNE - 05/01/2024 3:08 PM EST Markus Stratton is a 68 year old male who presents with Cough (Nasal congestion/drainage all x 1 1/2 weeks) 68 year old male present today for cough for 1.5 weeks. Patient states cough is dry. Patient deniesany fevers, chills no sinus pressure. Patient denies [...] evening and 2 pills at bedtime 270 capsule2 lisinopril (ZESTRIL) 10 mg tablet Take 1 [...] mouth three times a day as needed. 30capsule 0 azithromycin (ZITHROMAX) 250 mg tablet Take [...] go to ER for evaluation. Meron Cooper APRN.ADRIENNE This note was partially generated using [employer] voice recognition system, and there may be some incorrect words, spellings, and punctuation that were not noted in checking the note before saving. documented in this encounterTrinity Health [facility]02-08-2025 Instructions* Patient Instructions* Meron Cooper APRN.CNP - 05/01/2024 3:07 PM [...] to the emergency room. documented in this encounterTrinity Health [facility]01-27-2025 Instructions* Patient Instructions* Nikki Javier MD - 04/19/2024 11:30 AM EST 1. With lack of benefit to the current levodopa and lack of clear need, lets try coming off of it -take 1 pill twice a day for a week then stop. If you feel worse you can go back to taking whatever dose was helping, and try timing it at three times a day around 7 AM, 12 PM, 5 PM. 2. Wait til you are off the carbidopa/levodopa, then let's change pramipexole over to gabapentin. Igave you 300 mg gabapentin - start with 1 pill at 9 PM, if no better after a few days go to 2 pillsat 9 PM, and if still no better after a few days go to 1 pill at 8 PM and 2 pills 10 PM. Watch out for sleepiness with it. At the same time, come off pramipexole - take 1/2 pill for a week then stop. documented in this encounterTrinity Health [facility]01-27-2025 NoteHNO ID: [id number] Author: NIKKI JAVIER MD Service: ? Author [...] timing. Gave info on PD research at [facility]. HPI Current Issues - No clear benefit to levodopa - No side effects - Takes first dose around 0848-3847, second dose around 5695-2797 Generally does not take the mid-day dose - Didn't do therapy, not sure he needs to right now - Feels like his thoughts are slow coming out, hard to come up with things - Having RLS at night, lasts 30-45 minutes before he can get to sleep, often has to get up and walk around. Starts around 2099, bedtime around 2300, takes pramipexole around 2099 Current Outpatient Medications Medication Sig Dispense Refill [...] identified. 04/19/2024 by MD Nikki Harrell MD [facility]rologySt[facility]01-27-2025 History of Present illness Narrative* Nikki Javier MD - 04/19/2024 11:00 AM EST FOLLOW UP NOTE Subjective Markus Stratton is [...] timing. Gave info on PD research at [facility]. HPI Current Issues - No clear benefit to levodopa - No side effects - Takes first dose around 6719-9539, second dose around 3083-1785 Generally does not take the mid-day dose - Didn't do therapy, not sure he needs to right now - Feels like his thoughts are slow coming out, hard to come up with things - Having RLS at night, lasts 30-45 minutes before he can get to sleep, often has to get up and walkaround. Starts around 2100, bedtime around 2300, takes [...] evening and 2 pills at bedtime 270 capsule2 No current facility-administered medications for this visit. [...] All prescriptions have been APPROPRIATELY filled. No suspiciousactivity was identified. 04/19/2024 by MD Nikki Harrell MD [facility] Neurology documented in this encounterTrinity Health [facility]01-20-2025 History of Present illness Narrative* Christo Warren MD - 04/12/2024 8:40 AM EST Patient presents with: 6 Month Exam HPI: [...] Abs Lymph 1.00 - 4.00 k/uL 2.41 Colbert% % 6.4 Abs Colbert <0.87 k/uL 0.68 Eosin% % 1.2 Abs [...] 06/2017 COLONOSCOPY SCREENING 07/14/2017 Dr. Mohan @ [facility]; Ascending colon polyp x1, biopsy- tubular [...] past medical history, surgical history, family history andsocial history today. REVIEW OF SYSTEMS All other [...] RTO in one month documented in this encounterTrinity Health [facility]01-20-2025 NoteHNO ID: [id number] Author: CHRISTO WARREN MD Service: ? Author [...] Abs Lymph 1.00 - 4.00 k/uL 2.41 Colbert% % 6.4 Abs Colbert <0.87 k/uL 0.68 Eosin% % 1.2 Abs [...] 06/2017 COLONOSCOPY SCREENING 07/14/2017 Dr. Mohan @ [facility]; Ascending colon polyp x1, biopsy- tubular [...] Recommend regular aerobic exer (more content not included)...[facility]12-18-2024 Telephone encounter Note* Telephone Encounter - Baljinderramin JeronikhilJose Rdi - 03/10/2024 11:37 AM EST Prescription Refill Information The patient has been [...] Jacinda Moy March 10, 2024 11:38 AM [facility]12-18-2024 Miscellaneous Notes* Telephone Encounter - Jacinda Mathew - 03/10/2024 11:37 AM EST Prescription Refill Information The patient has been [...] 10, 2024 11:38 AM documented in this encounterTrinity Health System [facility] Center11-22-2024 [facility] Medical Records Department [address] [place] [address] History Physical Exam 02/13/24 0840 MR#: [id number] Acct: [id number] Name: MARKUS STRATTON Rep #: [id number] : 1955 68 From: Mohan Adhikari MD PCP: Dr. Christo Warren MD Status:[facility] Location: [place] [address] HPI - General General Date of Service: [...] and that his output is now clear. [facility] Medical History (Updated 02/13/24 @ 08:43 by [...] Age: 17 At age 17yrs, Treated at [facility] and survives Surgical History (Updated 02/12/24 @ 09:28 by Kelly Argueta) History of carpal tunnel surgery of right wrist History of carpal tunnel surgery of left wrist History of colonoscopy Social History (Updated 01/05/24 @ 11:16 by Jessica Abebe) current occupational status: employed current occupation: [employer] Smoking Status: Never smoker substance use type: [...] Contagious Disease: No Hx (more content not included)...[facility]11-18-2024 Telephone encounter Note* Telephone Encounter - Gretchen Greenwood - 02/09/2024 11:37 AM EST patient is scheduled at [facility] 02-13-2024 for his colonoscopy. Declined to schedule with [facility] Work Phone: [phone] Miscellaneous Notes* Telephone Encounter - Gretchen Greenwood - 02/09/2024 11:37 AM EST patient is scheduled at [facility] 02-13-2024 for his colonoscopy. Declined to schedule with [facility] documented in this encounterTrinity Health System [facility] Center10-24-2024 Telephone encounter Note * Telephone Encounter - Anna Page MA - 01/15/2024 11:47 AM EDT Pt notified that lab orders have been faxed to [facility] Anna Page MA January 15, 2024 11:47 AM [facility]10-24-2024 Miscellaneous Notes* Telephone Encounter - Anna Page MA - 01/15/2024 11:47 AM EDT Pt notified that lab orders have been faxed to [facility] Anna Page MA January 15, 2024 11:47 AM * Telephone Encounter - Christo Warren MD - 01/15/2024 11:29 AM EDT done * Telephone Encounter - Heydi Rodriguez - 01/15/2024 10:30 AM EDT Carlitos is calling Christo Warren MD today requesting order for routine blood work and PSA Please advise and return his call [phone] documented in this encounterTrinity Health System [facility] Center10-24-2024 Telephone encounter Note * Telephone Encounter - Christo Warren MD - 01/15/2024 11:29 AM EDT done [facility]10-24-2024 Telephone encounter Note* Telephone Encounter - Heydi Rodriguez - 01/15/2024 10:30 AM EDT Carlitos is calling Christo Warren MD today requesting order for routine blood work and PSA Please advise and return his call [phone] [facility]09-09-2024 Telephone encounter Note* Telephone Encounter - Kobi Dejesus RN - 12/01/2023 4:16 PM EDT Spoke with patient. Given message from provider's office. Patient verbalizes understanding. Kobi Dejesus RN [facility]09-09-2024 Miscellaneous Notes* Telephone Encounter - Kobi Dejesus RN - 12/01/2023 4:16 PM EDT Spoke with patient. Given message from provider's office. Patient verbalizes understanding. Kobi Dejesus RN * Telephone Encounter - Iam Humphries MA - 12/01/2023 1:31 PM EDT Left message to call office. 12/01/2023 1:31 PM Please schedule patient's [address] follow up with [address]. Warren which is due in March 2024. * Telephone Encounter - Rachel Martins APRN.CNP - 12/01/2023 12:04 PM EDT No medication changes. Follow-up with PCP as scheduled Rachel Martins APRN.CNP * Telephone Encounter - Iam Humphries MA - 12/01/2023 11:42 AM EDT BP Lara Serial, Digital BP Readings, Taken [...] and up to date documented in this encounterTr[facility] Telephone encounter Note * Telephone Encounter - Iam Humphries MA - 12/01/2023 1:31 PM EDT Left message to call office. 12/01/2023 1:31 PM Please schedule patient's [address] follow up [address] Dr. Warren which is due in March 2024. [facility]09-09-2024 Telephone encounter Note* Telephone Encounter - Rachel Martins APRN.CNP - 12/01/2023 12:04 PM EDT No medication changes. Follow-up with PCP as scheduled Rachel Martins APRN.CNP [facility]09-09-2024 Telephone encounter Note* Telephone Encounter - Iam Humphries MA - 12/01/2023 11:42 AM EDT BP Lara Serial, Digital BP Readings, Taken [...] Health Maintenance: Reviewed and up to date [facility]09-09-2024 NoteHNO ID: [id number] Author: IAM HUMPHRIES MA Service: ? Author Type: Bilingual Medical Assistant Type: Progress Notes Filed: 12/01/2023 11:43 [...] No Health Maintenance: [facility] History of Present illness Narrative* Iam Humphries MA - 12/01/2023 11:38 AM EDT BP Lara Serial, Digital BP Readings, Taken [...] and up to date documented in this encounterTr[facility]08-29-2024 Instructions* Patient Instructions* Rachel Martins, ALLERGIST IMMUNOLOGIST.ROLL CONTOUR GRINDER - 11/20/2023 12:15 PM EDT CARE ADVICE [...] be given to infants under one year ofage. HUMIDIFIER: If the air is dry, use [...] any questions or concerns documented in this encounterTr[facility]08-29-2024 NoteHNO ID: [id number] Author: RACHEL MARTINS APRN.ADRIENNE Service: ? Author Type: Nurse Practitioner Type: Progress Notes Filed: 11/20/2023 13:26 Note Text: CC: Patient presents with: runny nose, cough: Requesting another antibiotic HPI: Markus Stratton is a 68 year old male who presents to the office with above complaint He was seen in [facility] on 11/10 for three day history of [...] 07/14/2017: COLONOSCOPY SCREENING Comment: Dr. Mohan @ [facility]; Ascending colon polyp x1, biopsy- tubular [...] tenderness or frontal sinus tenderness. Mouth/Throat: Lips: [place]. Mouth: Mucous membranes are moist. Pharynx: Oropharynx [...] recent illness - Rec (more content not included)...[facility]08-29-[facility] History of Present illness Narrative* Rachel Martins, ALLERGIST IMMUNOLOGIST.[facility] - 11/20/2023 12:06 PM EDT CC: Patient presents with: runny nose, cough: Requesting another antibiotic HPI: Markus Stratton is a 68 year old male who presents to the office with above complaint He was seen in [facility] on 11/10 for three day history of cough and congestion. Patient declinedchest x-ray and COVID testing. He was treated with Amoxicillin for right ear infection and TessalonPerles. Symptoms have mostly resolved except for the cough. Cough is non-productive, worse at nightwhen he lays down and interfering with sleep. [...] 07/14/2017: COLONOSCOPY SCREENING Comment: Dr. Mohan @ [facility]; Ascending colon polyp x1, biopsy- tubular [...] tenderness or frontal sinus tenderness. Mouth/Throat: Lips: [place]. Mouth: Mucous membranes are moist. Pharynx: Oropharynx [...] Patient agreeable to treatment plan. Rachel Martins APRN.ROLL CONTOUR GRINDER documented in this encounterTrinity [facility]08-29-2024 Telephone encounter Note * Telephone Encounter - Dina Moran MA - 11/20/2023 10:50 AM EDT Scheduled with Rachel. Patient was not happy about having to schedule another appt. Dina Moran MA [facility]08-29-2024 Miscellaneous Notes* Telephone Encounter - Dina Moran MA - 11/20/2023 10:50 AM EDT Scheduled with Rachel. Patient was not happy about having to schedule another appt. Dina Moran MA * Telephone Encounter - Christo Warren MD - 11/20/2023 10:41 AM EDT Agree. Needs seen if still ill, in office or urgent care(who can see him after hours) * Telephone Encounter - Kemi Damico RN - 11/20/2023 10:21 AM EDT Patient calls to request refill on amoxicillin and benzonatate for continued cough and runny nose. Recommended scheduling follow up appointment for re-eval from EC visit. 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 Requesting Dr. Warren send in prescriptions as requested and contact him at [phone] once completed. Kemi Damico, RN documented in this encounterTrinity [facility]08-29-2024 Telephone encounter Note * Telephone Encounter - Christo Warren MD - 11/20/2023 10:41 AM EDT Agree. Needs seen if still ill, in office or urgent care(who can see him after hours) [facility]08-29-2024 Telephone encounter Note* Telephone Encounter - Kemi Damico RN - 11/20/2023 10:21 AM EDT Patient calls to request refill on amoxicillin and benzonatate for continued cough and runny nose. Recommended scheduling follow up appointment for re-eval from EC visit. 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 Requesting Dr. Warren send in prescriptions as requested and contact him at [phone] once completed. Kemi Damico RN [facility]08-26-2024 Instructions* Patient Instructions* Nikki Javier MD - 11/17/2023 2:35 PM EDT Let's start a medication called carbidopa/levodopa. It's a symptomatic medication for Parkinson's Disease that helps replace dopamine to improve movement symptoms. Take a half pill three times a day for the first week, then increase to a full pill three times a day. Depending on how you respond youcan go up to 1.5 pills three times [...] nausea, light-headedness, hallucinations, fatigue, or extra movements (dyskine brittanie). Breakfast Lunch Dinner Week 1 1/2 1/2 1/2 Week 2-4 1 1 1 Week 5-7 1.5 1.5 1.5 Week 8 and on 2 2 2 You can stop at a lower dose if you feel great on it or have side effects. Do physical and occupational therapy for the Parkinson's. Consider looking into research at [facility]. documented in this encounterTr[facility]08-26-2024 NoteHNO ID: [id number] Author: NIKKI JAVIER MD Service: ? Author [...] PD who presents for (more content not included)...[facility]08-26[facility] History of Present illness Narrative* Nikki Javier MD - 11/17/2023 2:04 PM EDT NEW PATIENT EVALUATION Subjective HPI Markus Stratton [...] mouth three times a day as needed. 21capsule 0 pramipexole (MIRAPEX) 0.5 mg tablet Take [...] HPI. Otherwise a 10-point ROS was completed andwas negative. ALLERGIES No Known Allergies Past Medical [...] There is mild hypomimia. There is mild hy pophonia. There is no dysarthria. Tongue is midline. [...] Explained medications may treat symptoms but do notalter the course of the condition. I explained the importance of exercise in maintaining independence. Placed referral to PT and OT for PD therapy. Start levodopa titrate to 200 mg TID, discussed side effects and proper timing. Gave info on PD research at [facility]. He should return to see me in 4 months. Nikki Javier MD [facility] Neurology documented in this encounterTrinity [facility]08-20-2024 NoteHNO ID: [id number] Author: ISRAEL ROQUE PA Service: ? Author Type: Physician Combine Operator Type: Progress Notes Filed: 11/11/2023 17:49 Note [...] 07/14/2017: COLONOSCOPY SCREENING Comment: Dr. Mohan @ [facility]; Ascending colon polyp x1, biopsy- tubular [...] warranting prompt ER ev (more content not included)...[facility]08-[facility] History of Present illness Narrative* Israel Roque PA - 11/11/2023 5:46 PM EDT This note was created using [employer]ell[employer]. Subjective Markus Stratton is a 68 year old male. HPI 68-year-old male presents for cough, runny nose, fatigue x 4 days. Patient states on Friday he started getting a dry cough. He states he feels congested in the chest, but is not coughing anythingup. He has a runny nose that is constant. He has had some fatigue. No fevers or chills. No vomitingor diarrhea. Reports stomach pain with cough, otherwise no abdominal pain. He has tried NyQuil, sinus medication, Mucinex, Rea's cough drops. States the cough drops help somewhat, but the rest of the medication has not been helping. He is unaware of any sick contacts. No chest pain or shortness ofbreath. No history of asthma, COPD or pneumonia. No other complaint. PAST MEDICAL HISTORY No date: Anxiety and depression No date: Chronic insomnia No date: HTN (hypertension) No date: Obese No date: Primary hypertension No date: RLS (restless legs syndrome) PAST SURGICAL HISTORY No date: APPENDECTOMY 08/30/2015: CARPAL TUNNEL; Right 06/2017: COLONOSCOPY 07/14/2017: COLONOSCOPY SCREENING Comment: Dr. Mohan @ [facility]; Ascending colon polyp x1, biopsy- tubular [...] ER evaluation. SHANNAN Horton documented in this encounterTrinity [facility]08-[facility]-2024 Telephone encounter Note * Telephone Encounter - Bella [place] - 10/27/2023 8:40 AM EDT ----- Message ----- From: Bonny Bains APRN.ROLL CONTOUR GRINDER Sent: 09/29/2023 4:22 PM EDT To: [place]; [place] [facility] Schedule Pool Carlitos is going to call in to schedule (if he decides to move forward with colonoscopy). I didn't place order because I am unsure if he will choose MAC or IV sedation. He will need to hold his 325mg aspirin prior. Bonny Schwartz APRN.ROLL CONTOUR GRINDER [facility]08-05-2024 Miscellaneous Notes* Telephone Encounter - Bella Hill - 10/27/2023 8:40 AM EDT ----- Message ----- From: Bonny Bains APRN.CNP Sent: 09/29/2023 4:22 PM EDT To: [place]; [place] [place] [facility] Schedule Pool Carlitos is going to call in to schedule (if he decides to move forward with colonoscopy). I didn't place order because I am unsure if he will choose MAC or IV sedation. He will need to hold his 325mg aspirin prior. Thanks, Bonny Bains APRN.ROLL CONTOUR GRINDER * Telephone Encounter - Bella [place] - 10/01/2023 8:44 AM EDT Patient to call when ready. Once patient calls order will be entered for correct anesthesia type [place] [employer] * Telephone Encounter - Bella Hill - 10/01/2023 8:44 AM EDT Last colonoscopy was done under MAC anesthesia at [facility]. The patient states I want to make sure I amOUT. He doesn't want to drive to [place]. We discussed the IV sedation here and he would like to think about where he would like to have scope done. He is going to call into the office once he decides. Carlitos is to hold his aspirin prior to endoscopy documented in this encounterTrinity Health [facility]07-15-2024 NoteHNO ID: [id number] Author: CHRISTO WARREN MD Service: ? Author [...] 06/2017 COLONOSCOPY SCREENING 07/14/2017 Dr. Mohan @ [facility]; Ascending colon polyp x1, biopsy- tubular [...] Controlled - Continue current medications Christo Warren [facility]07-15-2024 History of Present illness Narrative* Christo Warren MD - 10/06/2023 11:07 AM EDT Patient presents with: Follow Up HPI: Patient [...] 06/2017 COLONOSCOPY SCREENING 07/14/2017 Dr. Mohan @ [facility]; Ascending colon polyp x1, biopsy- tubular [...] past medical history, surgical history, family history andsocial history today. REVIEW OF SYSTEMS All other [...] medications Christo Warren MD documented in this encounterTrinity Health [facility]07-10-2024 Telephone encounter Note * Telephone Encounter - Bella Hill - 10/01/2023 8:44 AM EDT Patient to call when ready. Once patient calls order will be entered for correct anesthesia type [place] [employer] [facility]07-10-2024 Telephone encounter Note* Telephone Encounter - [place] - 10/01/2023 8:44 AM EDT Last colonoscopy was done under MAC anesthesia at [facility]. The patient states I want to make sure I amOUT. He doesn't want to drive to [place]. We discussed the IV sedation here and he would like to think about where he would like to have scope done. He is going to call into the office once he decides. Carlitos is to hold his aspirin prior to endoscopy [facility]07-08-2024 Nurse Note* Allyson Pollard RN - 09/29/2023 3:55 PM EDT REVIEW OF SYSTEMS: General: The patient denies [...] failure, other cardiac issues, denies claudication, denies coldfeet, denies peripheral arterial stent. Respiratory: The patient [...] back pain/injury, denies back problems, denies sciatica, deniesknee/foot trouble, denies arthritis, or denies gout. When was patient's last Mammogram screening? N/A Last Colonoscopy: 2017 Allyson Pollard RN [facility]07-08-2024 Nurse Note* Allyson Pollard RN - 09/29/2023 3:55 PM EDT REVIEW OF SYSTEMS: General: The patient denies [...] failure, other cardiac issues, denies claudication, denies coldfeet, denies peripheral arterial stent. Respiratory: The patient [...] back pain/injury, denies back problems, denies sciatica, deniesknee/foot trouble, denies arthritis, or denies gout. When was patient's last Mammogram screening? N/A Last Colonoscopy: 2017 Allyson Pollard RN documented in this encounterTrinity Health [facility]07-[facility]-2024 NoteHNO ID: [id number] Author: BONNY BAINS APRN.ROLL CONTOUR GRINDER Service: ? Author Type: Nurse Practitioner Type: Progress Notes Filed: 09/29/2023 16:22 Note Text: HISTORY AND PHYSICAL Markus Stratton : 1955 REFERRING PHYSICIAN: Christo Warren [address] [facility] [address] CHIEF COMPLAINT: Patient presents with: Consult: Colonoscopy [...] Last colonoscopy was with Dr. Mohan at [facility] in June 2017 Impression: 1. Cecum: [...] 06/2017 COLONOSCOPY SCREENING 07/14/2017 Dr. Mohan @ [facility]; Ascending colon polyp x1, biopsy- tubular [...] entered by the nurse and reviewed by ak Nursing Notes: Allyson Pollard RN 09/29/2023 3:56 [...] denies diarrhea, denies los (more content not included)...[facility] 09-26-2023 History of Present illness Narrative* Bonny Bains APRN.ROLL CONTOUR GRINDER - 09/26/2023 3:36 PM EDT HISTORY AND PHYSICAL Markus Stratton : 1955 REFERRING PHYSICIAN: Christo Warren [address] [facility] [place] [address] CHIEF COMPLAINT: Patient presents with: Consult: Colonoscopy [...] Last colonoscopy was with Dr. Mohan at [facility] in June 2017 Impression: 1. Cecum: Normal appearance no mass lesions normal ileocecal valve. 2. Ascending colon: Normal appearance no mass or lesions. There were 2 small polyps identified bothof them removed with snare cautery technique. One [...] 06/2017 COLONOSCOPY SCREENING 07/14/2017 Dr. Mohan @ [facility]; Ascending colon polyp x1, biopsy- tubular [...] entered by the nurse and reviewed by ak Nursing Notes: Allyson Pollard RN 09/29/2023 3:56 [...] failure, other cardiac issues, denies claudication, denies coldfeet, denies peripheral arterial stent. Respiratory: The patient [...] back pain/injury, denies back problems, denies sciatica, deniesknee/foot trouble, denies arthritis, or denies gout. When [...] are equally round, sclera are anicteric, mucous membranesare moist, oropharynx is clear. Neck has no [...] Will plan for lower endoscopy. We discussed therisks and benefits of the planned endoscopy. I have informed the patient that complications can occur including failure to complete the endoscopy and perforation. Markus had the opportunity to ask questions concerning the planned endoscopy. My staff has also explained the procedure to the patientin understandable terms and has given the patient printed material concerning the procedure. Markus freely consents to surgery. I plan to use Miralax bowel preparation I have explained to the patient the difference between IV conscious sedation and MAC anesthesia - and I have offered either, according to the patient's wishes. I have explained that with IV conscioussedation there is no anesthesia provider available and [...] colonoscopy was done under MAC anesthesia at [facility]. The patient states I want to make sure I amOUT. He doesn't want to drive to [place]. We discussed the IV sedation here and [...] that preclude anesthesia, patient may have procedure cancelledfor patient's safety. Diagnoses: (Z80.0) FH: colon cancer [...] necessary. Bonny Bains APRN.ADRIENNE documented in this encounterTrinity Health [facility]06-17-2024 Telephone encounter Note * Telephone Encounter - Anna Page MA - 09/08/2023 2:13 PM EDT Pt asking for the 5 mg tab to be sent in to the pharmacy. Pt was asking to go without the consult and do just the colonoscopy. I told him based on history ofpolyps he had to have the consult first. Anna Page MA September 08, 2023 2:15 PM [facility]06-17-2024 Miscellaneous Notes* Telephone Encounter - Anna Page MA - 09/08/2023 2:13 PM EDT Pt asking for the 5 mg tab to be sent in to the pharmacy. Pt was asking to go without the consult and do just the colonoscopy. I told him based on history ofpolyps he had to have the consult first. Anna Page MA September 08, 2023 2:15 PM * Telephone Encounter - Christo Warren MD - 09/08/2023 1:40 PM EDT ??There is a consult for surgery in the chart and looks like he has an appt already sed up on 09/28 * Telephone Encounter - Gaby Pedersen - 09/08/2023 1:33 PM EDT Patient called in and saw Dr. Warren and stated that Dr Warren was suppose to put in an order for a consult to see Dr Mohan. I did not see one in patients chart. Please advice as to what we should do. Thank you Gaby Pedersen documented in this encounterTrinity [facility]06-[facility]-2024 Telephone encounter Note * Telephone Encounter - Christo Warren MD - 09/08/2023 1:40 PM EDT ??There is a consult for surgery in the chart and looks like he has an appt already sed up on 09/28 [facility]06-17-2024 Telephone encounter Note* Telephone Encounter - Gaby Pedersen - 09/08/2023 1:33 PM EDT Patient called in and saw Dr. Warren and stated that Dr Warren was suppose to put in an order for a consult to see Dr Mohan. I did not see one in patients chart. Please advice as to what we should do. Thank you Gaby Pedersen [facility]06-17-2024 History of Present illness Narrative* Christo Warren MD - 09/08/2023 9:57 AM EDT Patient presents with: 6 Month Exam HPI: [...] 06/2017 COLONOSCOPY SCREENING 07/14/2017 Dr. Mohan @ [facility]; Ascending colon polyp x1, biopsy- tubular [...] past medical history, surgical history, family history andsocial history today. REVIEW OF SYSTEMS All other [...] NEUROLOGY Christo Warren MD documented in this encounterTrinity Health [facility]06-10-2024 Telephone encounter Note * Telephone Encounter - Soledad Butler - 09/01/2023 12:01 PM EDT Patient asking for a 90 day qty, and also asking for a higher dose as the 0.25 is not working well.Please call with what dosage will be called in. [phone] Patient has been identified by name and date of : Yes Patient phones for refill(s): Requested Prescriptions Pending Prescriptions Disp Refills pramipexole (MIRAPEX) 0.25 mg tablet 30 tablet 5 Sig: Take 1 tablet by mouth daily at bedtime. Date of last office visit in primary care: 02/24/2023 Date of next office visit in primary care: 09/08/2023 Please advise. Thank you. Soledad Butler. [facility]06-10-2024 Miscellaneous Notes* Telephone Encounter - Soledad Butler - 09/01/2023 12:01 PM EDT Patient asking for a 90 day qty, and also asking for a higher dose as the 0.25 is not working well.Please call with what dosage will be called in. [phone] Patient has been identified by name and [...] Thank you. Soledad Butler. documented in this encounterTrinity Health [facility]05-07-2024 Telephone encounter Note * Telephone Encounter - Palak Potter LPN - 07/29/2023 12:35 PM EDT Patient notified. Verbalized understanding. [facility]05-07-2024 Miscellaneous Notes* Telephone Encounter - Palak Potter LPN - 07/29/2023 12:35 PM EDT Patient notified. Verbalized understanding. * Telephone Encounter - Christo Warren MD - 07/29/2023 11:54 AM EDT No labs needed. * Telephone Encounter - Jessica Sanchez - 07/29/2023 9:56 AM EDT Patient calling to request an order for Labs Please advise. Patient is requesting a return call from our office. Date of next visit with PCP 09-08-23 documented in this encounterTrinity Health [facility]05-07-2024 Telephone encounter Note * Telephone Encounter - Christo Warren MD - 07/29/2023 11:54 AM EDT No labs needed. [facility]05-07-2024 Telephone encounter Note* Telephone Encounter - Jessica Sanchez - 07/29/2023 9:56 AM EDT Patient calling to request an order for Labs Please advise. Patient is requesting a return call from our office. Date of next visit with PCP 09-08-23 [facility]05-07-2024 Telephone encounter Note* Telephone Encounter - Jessica Sanchez - 07/29/2023 9:54 AM EDT Patient has been identified by name and date of : Patient phones for refill(s): Requested Prescriptions Pending Prescriptions Disp Refills lisinopril 2.5 mg tablet 90 tablet 3 Sig: Take 1 tablet by mouth once daily. Date of last office visit in primary care: 02/24/2023 Date of next office visit in primary care: 09/08/2023 Please advise. Thank you. Jessica Sanchez. [facility]05-07-2024 Miscellaneous Notes* Telephone Encounter - Jessica Sanchez - 07/29/2023 9:54 AM EDT Patient has been identified by name and date of : Patient phones for refill(s): Requested Prescriptions Pending Prescriptions Disp Refills lisinopril 2.5 mg tablet 90 tablet 3 Sig: Take 1 tablet by mouth once daily. Date of last office visit in primary care: 02/24/2023 Date of next office visit in primary care: 09/08/2023 Please advise. Thank you. Jessica Sanchez. documented in this encounterTrinity Health [facility]12-12-2023 Miscellaneous Notes* Telephone Encounter - Christo Warren MD - 03/04/2023 1:45 PM EST Patient is aware of my recommendations. * Telephone Encounter - Britta Agarwal OCCA - 03/04/2023 1:39 PM EST TC to patient with providers message below. [...] in if patient changes mind. GIOVANNA Waite * Telephone Encounter - Christo Warren MD - 03/04/2023 12:15 PM EST His repeat cbc is normal. His bilirubin is primarily the unconjugated which is often related to genetic factors that we discussed. To make sure usually I would repeat the albs in one month to make sure. documented in this encounterTr[facility]12-[facility] History of Present illness Narrative* Kevin (Twist Packer)Xochitl - 02/28/2023 11:08 AM EST Markus Stratton is identified through a medication adherence outreach initiative based on pharmacy claims data from [employer] (insurer) for DAWN medication(s). Patient is reviewed [...] date per call to patient/caregiver Xochitl Brown (GetMyRx) documented in this encounterTr[facility]12-04-2023 History of Present illness Narrative* Christo Warren MD - 02/24/2023 4:57 PM EST Patient presents with: Follow Up HPI: Patient [...] Abs Lymph 1.00 - 4.00 k/uL 2.33 Colbert% % 6.7 Abs Colbert <0.87 k/uL 0.65 Eosin% % 1.8 Abs [...] 06/2017 COLONOSCOPY SCREENING 07/14/2017 Dr. Mohan @ [facility]; Ascending colon polyp x1, biopsy- tubular adenoma; recommended repeat in 3 yrs TONSILLECTOMY HX VASECTOMY UNI/BI SPX W/POSTOP SEMEN EXAMS FAMILY HISTORY Problem Relation Age of Onset Colon Cancer Daughter Social History Tobacco Use Smoking status: Never Smokeless tobacco: Never Substance Use Topics Alcohol use: Yes Comment: occasionally Drug use: No Reviewed current medications, allergies, past medical history, surgical history, family history andsocial history today. REVIEW OF SYSTEMS All other [...] dpoa. Influenza Vaccine(1) due on 11/22/2022 Covid-19 Vaccine(2022-24 season) due on 11/22/2022 Colorectal Cancer Screening [...] meds. Christo Warren MD documented in this encounterTr[facility]11-14-2023 Miscellaneous Notes* Telephone Encounter - Andreea Thompson LPN - 02/04/2023 11:21 AM EST Pt is asking for an increase in medication. See message below. Thank you. Andreea Thompson LPN * Telephone Encounter - Andreea Thompson LPN - 02/04/2023 8:10 AM EST Received a prescription request for medication below. [...] Please advise. Thank you. Andreea Thompson LPN. * Telephone Encounter - [facility] Cristal Forbes - 02/03/2023 10:21 AM EST Patient has been identified by name and [...] notify patient. Cristal Forbes documented in this encounterTrinity [facility]11-03-2023 History of Present illness Narrative* Christo Warren MD - 01/24/2023 4:49 PM EDT Can do ifobt * Xochitl Justin - 01/24/2023 11:28 AM EDT POPULATION HEALTH NAVIGATION OUTREACH Action/FYI Pt due [...] Care Gap or Scheduling/Wellness visits Payer: Payor: [employer] MEDICARE / Plan: [employer] MEDICARE HMO / [...] done Influenza Vaccine(1) due on 11/22/2022 Covid-19 Vaccine(4 - 2022- season) due on 11/22/2022 Colorectal Cancer Screening due on 12/19/2022 Navigation Signature: Xochitl Justin January 24, 2023 11:28 AM documented in this encounterTrinity [facility]11-03-2023 Miscellaneous Notes* Addendum Note - Christo Warren MD - 01/24/2023 4:49 PM EDTAddended by: CHRISTO WARREN on: 01/24/2023 04:49 PM Modules accepted: Orders documented in this encounterTrinity [facility]10-31-2023 Miscellaneous Notes* Telephone Encounter - Tierra Mccormick - 01/21/2023 1:35 PM EDT Called pt to schedule neftali., pt stated he will wait to schedule this neftali at a diff time * Telephone Encounter - Christo Warren MD - 01/21/2023 11:47 AM EDT Ok. Make sure we set up below. * Telephone Encounter - Janell Bynum RN - 01/21/2023 9:00 AM EDT Phoned patient and given provider's message below with verbalized understanding. Patient agreeable. Patient wants pcp to know he is sleeping now, and feeling a lot better getting sleep. Patient cancelled VV appt stating now that he is sleeping does not need the appt. * Telephone Encounter - Christo Warren MD - 01/20/2023 7:19 PM EDT Labs ok except. Psa is borderline high. Likely ok but have him see urology. Bilirubin which is one liver enzyme is slightly up. It can be a normal finding in some people. Would recheck it in a few weeks. White count shows some slight changes which is likely ok but would recheck as well. documented in this encounterTrinity [facility]10-24-2023 Miscellaneous Notes* Telephone Encounter - Palak Potter LPN - 01/14/2023 10:33 AM EDT Patient notified. Verbalized understanding. Does have a virtual follow up on Jan 23. * Telephone Encounter - Christo Warren MD - 01/14/2023 10:11 AM EDT We have to start low. Most importantly I need his labs this week. Make sure has follow up * Telephone Encounter - Donna Gtz, GEOVANNA - 01/14/2023 9:42 AM EDT Called pt back and he is asking to please have the prescription sent today if possible to [facility]. He says he is not sleeping and really needs rest. Asking if at anyway possible if he could get RXsent today, he would appreciate it. * Telephone Encounter - Swapna Arriola - 01/14/2023 9:20 AM EDT Patient called , said Gabapentin is not working for RLS and or sleep. Patient said he has a friend that takes Pramipexole 1.5mg he took 2 of them and they work great patient is requesting this too. Please advise documented in this encounterTrinity [facility]10-18-2023 Miscellaneous Notes* Telephone Encounter - Dina Moran - 01/08/2023 11:37 AM EDT Patient scheduled for virtual tomorrow at 9:20. Dina Moran * Telephone Encounter - Christo Warren MD - 01/08/2023 11:00 AM EDT That is not something we are permitted to do without evaluation. I would suggest being seen. Can dovirtual with me in am while I am at [facility] * Telephone Encounter - Btety Fofana - 01/08/2023 8:44 AM EDT Spoke with patient regarding cancel appt due to michelet call off.. patient states he really doesn't need to be seen just having issues sleeping and just wanted to have provider order sleeping meds. Patient did not want wish to make appt. Please advise. Thank you Betty FORBES documented in this encounterTrinity [facility]10-17-2023 Miscellaneous Notes* Telephone Encounter - Janell Bynum RN - 01/07/2023 11:53 AM EDT See triage note. * Telephone Encounter - Jessica Sanchez - 01/07/2023 9:51 AM EDT Maruks Stratton is calling Christo Warren MD today with concern regarding unable to sleep. Patient has not slept for 2 weeks. Patient has been identified by name and birthdate. Duration of symptoms: 2 weeks Person calling: self Call patient at: on cell [phone] (home) [phone] (work) [phone] (cell) Was an appointment scheduled: No Closing statement: Symptom Call: Thank you for calling [facility], your call is very important. A nurse will call in approximately 2-4 hours during business hours. If this is an emergency, please contact 911. Jessica Sanchez documented in this encounterTrinity [facility]10-17-2023 Miscellaneous Notes* Telephone Encounter - Janell Bynum RN - 01/07/2023 11:30 AM EDT Patient requesting sleeping pill, has not slept in 2 weeks- only for short periods. Has tried otherthings (see below). Scheduled 1 st available with pcp tomorrow. Patient declined sooner appt with [facility]. Protocol recommends call pcp w/in 24 hours. [...] OTHER SYMPTOMS: No other symptoms. Protocols used: [id number] documented in this encounterTrinity [facility]06-23-2023 History of Present illness Narrative* Katrina Tovar MA - 09/13/2022 9:53 AM EDT POPULATION HEALTH NAVIGATION OUTREACH Action/I [employer] Care Gaps 08.20.22 Discuss/Due for: Medicare Wellness Exam, Colorectal Cancer [...] Care Gap or Scheduling/Wellness visits Payer: Payor: ON LICENSE OF [facility] MEDICARE / Plan: [employer] MEDICARE HMO / [...] 13, 2022 9:54 AM documented in this encounterTrinity [facility]01-13-2023 Miscellaneous Notes* Telephone Encounter - Kacy Galeano (GetMyRx) - 04/05/2022 10:42 AM EST Patient reviewed for [facility] Medication Adherence. No refills remain on prescription at pharmacy. Last filled 11/13/21. Please send new rx if pt is to continue taking. Pended the following prescription(s) for review. Requested Prescriptions Pending Prescriptions Disp Refills lisinopril 2.5 mg tablet 90 tablet 3 Sig: Take 1 tablet by mouth once daily. No future appointments. Please review and refill if appropriate. Thank you. Kacy Galeano (GetMy[facility]) April 05, 2022 10:42 AM documented in this encounterTrinity [facility]01-10-2023 History of Present illness Narrative* Kacy Galeano ([facility]) - 04/02/2022 9:08 AM EST Markus Stratton is identified through a medication adherence outreach initiative based on pharmacy claims data from [facility] (insurer) for DAWN medication(s). Patient is reviewed [...] PCP to refill if appropriate. Kacy Galeano (Twist Packer) documented in this encounterTrinity Health [facility]01-08-2023 History of Present illness Narrative* Juan Carlos Abebe APRN.ROLL CONTOUR GRINDER - 03/31/2022 2:52 PM EST Images from the original note were not [...] 06/2017 COLONOSCOPY SCREENING 07/14/2017 Dr. Mohan @ [facility]; Ascending colon polyp x1, biopsy- tubular [...] resp. rate 16, weight 96.2 kg (212 lb),SpO2 98 %. Physical Exam Constitutional: General: He [...] CLAVULANATE 125 MG TABLET Juan Carlos Abebe APRN.ROLL CONTOUR GRINDER documented in this encounterTrinity [facility]09-26-2022 History of Present illness Narrative* Payal Rodriguez Pss - 12/17/2021 8:49 AM EDT POPULATION HEALTH NAVIGATION OUTREACH Action/FYI Patient due [...] Message Sent to Practice: No Navigation Signature: Payal Forbes December 17, 2021 8:51 AM documented in this encounterTrinity [facility]08-23-2022 Miscellaneous Notes* Telephone Encounter - Andreea Thompson LPN - 11/13/2021 4:52 PM EDT Spoke to pt and he has scheduled [...] 03/12/2021 122/72 Thank you. Andreea Thompson LPN * Telephone Encounter - Seven Melendez LPN - 11/07/2021 3:17 PM EDT Patient phones requesting refills as follows: Requested Prescriptions Pending Prescriptions Disp Refills lisinopril 2.5 mg tablet 90 tablet 1 Sig: Take 1 tablet by mouth once daily. PRATIMA 05/01/20 NOV no upcoming appt *Pt overdue for 40 min Annual appt. message to pt to notify him of the same. Awaiting response. Please review and advise. Seven Melendez LPN documented in this encounterTrinity [facility]02-08-2021 History of Present illness Narrative* Morelia Isbell)Carol - 05/01/2020 7:00 PM EST Radiology Service Progress Note PATIENT NAME: Markus Stratton DATE OF SERVICE: May 01, 2020 TIME: 6:54 PM PATIENT IDENTITY VERIFICATION COMPLETED USING TWO (2) IDENTIFIERS: Name and Date of confirmedby patient verbally. FALL SCREENING: Has the patient [...] 01, 2020 6:54 PM documented in this encounterTr[facility]2018 History of Past illness Narrative* Problem Noted Date Resolved Date Neck pain 09/09/2017 10/30/2017 Stiffness of left wrist joint 11/28/2015 Pain in right wrist 09/13/2015 10/30/2017 Stress and adjustment reaction 04/07/2014 0 10/30/2017 documented as of this encounter (statuses as of 11/13/2021) [facility] History of Past illness Narrative* Problem Noted Date Resolved Date Neck pain 09/09/2017 10/30/2017 Stiffness of left wrist joint 11/28/2015 Pain in right wrist 09/13/2015 10/30/2017 Stress and adjustment reaction 04/07/2014 0 10/30/2017 documented as of this encounter (statuses as of 12/17/2021) [address]19-2018 History of Past illness Narrative* Problem Noted Date Resolved Date Neck pain 09/09/2017 10/30/2017 Stiffness of left wrist joint 11/28/2015 Pain in right wrist 09/13/2015 10/30/2017 Stress and adjustment reaction 04/07/2014 0 10/30/2017 documented as of this encounter (statuses as of 03/31/2022) [address]19-2018 History of Past illness Narrative* Problem Noted Date Resolved Date Neck pain 09/09/2017 10/30/2017 Stiffness of left wrist joint 11/28/2015 Pain in right wrist 09/13/2015 10/30/2017 Stress and adjustment reaction 04/07/2014 0 10/30/2017 documented as of this encounter (statuses as of 04/05/2022) [address]19-2018 History of Past illness Narrative* Problem Noted Date Resolved Date Neck pain 09/09/2017 10/30/2017 Stiffness of left wrist joint 11/28/2015 Pain in right wrist 09/13/2015 10/30/2017 Stress and adjustment reaction 04/07/2014 0 10/30/2017 documented as of this encounter (statuses as of 04/05/2022) [address]19-2018 History of Past illness Narrative* Problem Noted Date Resolved Date Neck pain 09/09/2017 10/30/2017 Stiffness of left wrist joint 11/28/2015 Pain in right wrist 09/13/2015 10/30/2017 Stress and adjustment reaction 04/07/2014 0 10/30/2017 documented as of this encounter (statuses as of 09/13/2022) [address]19-2018 History of Past illness Narrative* Problem Noted Date Diagnosed Date Resolved Date Neck pain 09/09/2017 10/30/2017 Stiffness of left wrist joint 11/28/2015 10/30/2017 Pain in right wrist 09/13/2015 10/31/19 18 Stress and adjustment reaction 04/07/2014 10/30/2017 documented as of this encounter (statuses as of 01/07/2023) [address]19-2018 History of Past illness Narrative* Problem Noted Date Diagnosed Date Resolved Date Neck pain 09/09/2017 10/30/2017 Stiffness of left wrist joint 11/28/2015 10/30/2017 Pain in right wrist 09/13/2015 10/31/19 18 Stress and adjustment reaction 04/07/2014 10/30/2017 documented as of this encounter (statuses as of 01/08/2023) [facility] Narrative* Problem Noted Date Diagnosed Date Resolved Date Neck pain 09/09/2017 10/30/2017 Stiffness of left wrist joint 11/28/2015 10/30/2017 Pain in right wrist 09/13/2015 10/31/19 18 Stress and adjustment reaction 04/07/2014 10/30/2017 documented as of this encounter (statuses as of 01/14/2023) [facility] History of [facility] illness Narrative* Problem Noted Date Diagnosed Date Resolved Date Neck pain 09/09/2017 10/30/2017 Stiffness of left wrist joint 11/28/2015 10/30/2017 Pain in right wrist 09/13/2015 10/31/19 18 Stress and adjustment reaction 04/07/2014 10/30/2017 documented as of this encounter (statuses as of 01/25/2023) [facility] of [facility] illness Narrative* Problem Noted Date Diagnosed Date Resolved Date Neck pain 09/09/2017 10/30/2017 Stiffness of left wrist joint 11/28/2015 10/30/2017 Pain in right wrist 09/13/2015 10/31/19 18 Stress and adjustment reaction 04/07/2014 10/30/2017 documented as of this encounter (statuses as of 02/04/2023) [address]2018 History of Past illness Narrative* Problem Noted Date Diagnosed Date Resolved Date Neck pain 09/09/2017 10/30/2017 Stiffness of left wrist joint 11/28/2015 10/30/2017 Pain in right wrist 09/13/2015 10/31/19 18 Stress and adjustment reaction 04/07/2014 10/30/2017 documented as of this encounter (statuses as of 02/14/2023) [facility] Narrative* Problem Noted Date Diagnosed Date Resolved Date Neck pain 09/09/2017 10/30/2017 Stiffness of left wrist joint 11/28/2015 10/30/2017 Pain in right wrist 09/13/2015 10/31/19 18 Stress and adjustment reaction 04/07/2014 10/30/2017 documented as of this encounter (statuses as of 02/25/2023) [facility] History of [facility] illness Narrative* Problem Noted Date Diagnosed Date Resolved Date Neck pain 09/09/2017 10/30/2017 Stiffness of left wrist joint 11/28/2015 10/30/2017 Pain in right wrist 09/13/2015 10/31/19 18 Stress and adjustment reaction 04/07/2014 10/30/2017 documented as of this encounter (statuses as of 02/28/2023) [facility] History of [facility] illness Narrative* Problem Noted Date Diagnosed Date Resolved Date Neck pain 09/09/2017 10/30/2017 Stiffness of left wrist joint 11/28/2015 10/30/2017 Pain in right wrist 09/13/2015 10/31/19 18 Stress and adjustment reaction 04/07/2014 10/30/2017 documented as of this encounter (statuses as of 03/05/2023) [facility] CenterDis[facility] summary Author Andrade [facility] Note Date/Time September 12, 2024 12:5 9pm [facility] Medical Records Department [address] [place] [address] Discharge Summary 09/12/24 1252 MR#: [id number] Acct: [id number] Name: MARKUS STRATTON Rep #: [id number] : [id number] 69 From: Andrade Arango DO PCP: Dr. Christo Warren MD Status:ADM I N Location: [place] [id number] Providers Date of Admission: 09/10/24 Primary Care Physician: Dr. Christo Warren MD Reason For Visit: UTI SEPSIS AMS AND PARKINSON'S DISEASE Diagnosis Discharge Diagnosis (1) Sepsis: Status: Acute Code(s): A41.9 - Sepsis, unspecified organism Qualifiers: Sepsis type: sepsis due to unspecified organism Sepsis acute organ dysfunction status: with acute organ dysfunction Severe sepsis acute organ dysfunction type: encephalopathy Severe sepsis shock status: without septic shock Qualified Code(s): A41.9 - Sepsis, unspecified organism; R65.20 - Severe sepsis without septic shock; G93.41 - Metabolic encephalopathy Plan: POA qSOFA 2 (encephalopathy, RR >22) 2/2 UTI +/- cellulitis +/- bacteremia. Monitor (2) Cellulitis: Status: Acute Code(s): L03.90 - Cellulitis, unspecified Plan: Improved. Will dc with doxycycline. cellulitis and also what appears to be vancomycin POCUS concerning for SVT. I did offer the option to stay to have a formal US/duplex, but did say that it would not change mgmt. He elected to be discharged home today. (3) Acute metabolic encephalopathy: Status: Acute Code(s): G93.41 - Metabolic encephalopathy Plan: Resolved 2/2 sepsis, cellulitis in patient with known Parkinson's disease No additional work up (4) Urinary frequency: Status: Acute Code(s): R35.0 - Frequency of micturition Plan: Suspect due to BPH--not UTI. Family told it could be due to his Parkinson's disease. Recommended tamsulosin and follow up with as outpt. (5) UTI (urinary tract infection): Status: Acute Code(s): N39.0 - Urinary tract infection, site not specified Plan: Ruled out. UA upon further review was unremarkable. UCx negative. pt does have urinary frequency. I suspect due to BPH and recommended tamsulosin. (6) Bacteremia: Status: Acute Code(s): R78.81 - Bacteremia Plan: I suspect contamination as 1 of 2 cultures positive for coag negative staph on the . BCx on the negative. Plan DW his family at bedside. Medications at Discharge Home Medications carbidopa 10 mg-levodopa 100 mg tablet 1 tab PO TID Anti parkinsons 01/05/24 pramipexole 0.5 mg tablet 0.5 mg PO QHS Antiparkinsons 01/05/24 gabapentin 300 mg capsule 300 mg PO .evening Neuropathy 09/10/24 L.acidophil,salivari-Bifido bifidum-Strep thermoph 175 mg capsule 1 cap PO 4X/DAY #20 caps 09/12/24 doxycycline monohydrate 100 mg capsule 100 mg PO BID #10 [facility] 09/12/24 tamsulosin 0.4 mg capsule 0.4 mg PO DAILY #30 [facility] 09/12/24 Hospital Course Operations None Procedures None Summary of Care Provided Minutes Spent on Discharge: 40 Hospital Course: Patient presents with sepsis and metabolic encephalopathy secondary to to a respiratory cellulitis. Prior to arrival, patient had erythema of his antecubital area more proximally along his biceps. Concern was for urinary tract faction when he presented though his urinalysis only showed 5-10 white blood cells in his urine culture while being negative. Says he was initially treated for urinary tract infection but seems that the symptoms were more related with a cellulitis. Patient has improvement and will be discharged with doxycycline. Patient does have urinary frequency which I think is probably moredue to BPH though family has been told that may be due to Parkinson's. I did recommend starting tamsulosin to see if that would help. Patient and his familyare advised to monitor his upper extremities for any worsening redness or swelling to contact someone or return to the emergency room. I did do a bedsideultrasound and show that his bradycardia was noncompressible so I am concerned that he may have had a SVT as well did offered the option to stay in the hospital to have that formally evaluated but also told him if it is SVT it wouldnot document management analyst would just be conservative measures. He elected to go home. Weight / BMI Weight Weight: 91.6 kg Body Mass Index (BMI) 34.7 ABG / Lab / Microbiology Data 09/12/24 06:02 09/12/24 06:02 Laboratory: Laboratory Results - last 24 hr 09/12/24 06:02: WBC 6.3, RBC 4.17 L, Hgb 12.2 L, Hct 35.7 L, MCV 85.6, MCH 29.3,MCHC 34.2, RDW Std Deviation 42.5, RDW Coeff of Earl 13.5, Plt Count 152, MPV 10.7, Immature Gran % (Auto) 0.300, Neut % (Auto) 66.4, Lymph % (Auto) 17.9 L, Colbert % (Auto) 10.0, Eos % (Auto) 4.9, Baso % (Auto) 0.5, Absolute Neuts (auto) 4.2, Absolute Lymphs (auto) 1.13, Nucleated RBC % 0, Sodium 139, Potassium 3.6, Chloride 107, Carbon Dioxide 22.2, Anion Gap 10, BUN 16, Creatinine 1.08, Estim Creat Clear Calc 64.03, Est GFR (MDRD) Non-Af 73, BUN/Creatinine Ratio 14.8, Glucose 93, Calcium 8.3 Microbiology: Microbiology 09/09/24 23:19 Urine, Bladder Washings Urine Culture - Final Culture exhibits no growth. 09/10/24 02:35 Blood Culture (Wb) - Right Hand Blood Culture - Preliminary No growth in 48 hours. 09/09/24 22:04 Blood Culture (Wb) - Left Hand Blood Culture - Preliminary No growth in 48 hours. 09/09/24 23:15 Blood Culture (Wb) - Left Hand Blood Culture - Preliminary No growth in 48 hours. 09/09/24 23:22 Blood Culture (Wb) - Anticubital Left Blood Culture - Preliminary Coag Negative Staph 09/09/24 23:47 Mucosa - Nose SARS-CoV-2, Influenza & RSV (PCR) - Final D/C Instructions Discharge Diet: No restrictions DC O2, CPAP, BIPAP Needs Home O2 Discharge instructions: No Meaningful Use Info Meaningful Use Meaningful Use Diagnoses (Choose all that apply): None applicable Ischemic Stroke Statin Dosing Therapy Reference: STATIN DOSE THERAPY REFERENCE: * Patients > 75 years receive moderate or high dose statin therapy. * Patients 75 years or YOUNGER should receive HIGH intensity statin dose unless contraindicated. You will be required to document reason for non-treatment if statin daily dose does not meet guidelines. HIGH DOSE STATIN THERAPY DAILY Atorvastatin > than or = to 40 mg Rosuvastatin > than or = to 20 mg Amlodipine + Atorvastatin > than or = to 2.5/40 mg Ezetimibe + Simvastatin 10/80 mg Simvastatin 80mg Discharge Plan Admission Admit Date/Time: 09/10/24 01:33 Primary Reason for Your Visit: Cellulitis Attending Provider: Andrade Arango Primary Care Provider: Christo Warren Consulting Providers: Camden Zelaya Instructions Additional Instructions / Restrictions: You have cellulitis, infection of your arm. You will need to be on antibiotics and take that to completion. There was concern that you may have a urinary tract infection though upon further review does not appear that you actually do have a urinary tract infection. Though I am concerned because of your urinary frequency that could be a source of future infections I do recommending taking something to help with your urination as I feel the more likely have enlarged prostate. The medication is tamsulosin (also known as Flomax) do recommend seeing an urologist as well. Discharge Orders/Prescriptions Prescriptions: New Desireeoph,saliva-B.bif-S.therm 175 mg Capsule 1 cap PO 4X/DAY Qty: 20 0RF doxycycline monohydrate 100 mg capsule 100 mg PO BID Qty: 10 0RF tamsulosin 0.4 mg capsule 0.4 mg PO DAILY Qty: 30 0RF Continued pramipexole 0.5 mg tablet 0.5 mg PO QHS carbidopa-levodopa 10-100 mg tablet 1 tab PO TID gabapentin 300 mg capsule 300 mg PO .evening Patient Comments: 600mg at hs Referrals / Follow Up: Christo Warren MD [Primary Care Provider] - Within 2 Weeks Disposition Disposition (needs filled in before D/C Order can be placed): Home, Self Care Charges/Coding Visit Charges Inpatient E&M: 85395 Disch Hosp >30min 09/12/24 1259 <Electronically signed by Andrade Arango DO> Cosigner Signature (if applicable): CC: Dr. Andrade Arango DO; Dr. Christo Warren MD~ Signed [facility] Work Phone: Evaluation note* Diagnosis Essential hypertension Unspecified essential hypertension documented in this encounter [facility] note* Diagnosis Tooth ache- Primary documented in this encounter [facility] note* Diagnosis Essential hypertension Unspecified essential hypertension documented in this encounter [facility] note* Diagnosis Screening for colon cancer- Primary Special screening for malignant neoplasms, colon documented in this encounter [facility] note* Diagnosis Hyperbilirubinemia- Primary Jaundice, unspecified, not of Abnormal blood cell count Elevated PSA Elevated prostate specific antigen (PSA) documented in this encounter [facility] note* Diagnosis RLS (restless legs syndrome)- Primary Restless legs syndrome (RLS) Hyperbilirubinemia Jaundice, unspecified, not of Abnormal blood cell count Elevated PSA Elevated prostate specific antigen (PSA) Primary hypertension Unspecified essential hypertension documented in this encounter [facility] note* Diagnosis Hyperbilirubinemia- Primary Jaundice, unspecified, not of [facility] [place] [facility]* Diagnosis Essential hypertension Unspecified essential hypertension [facility] [place] [facility]* Diagnosis Essential hypertension- Primary Unspecified essential hypertension Anxiety and depression Dysthymic disorder RLS (restless legs syndrome) Restless legs syndrome (RLS) Screening for prostate cancer Special screening for malignant neoplasm of prostate Elevated PSA Elevated prostate specific antigen (PSA) History of colonic polyps Personal history of colonic polyps Gait disorder Abnormality of gait Bradykinesia Abnormal involuntary movements documented in this encounter [facility] note* Diagnosis Essential hypertension Unspecified essential hypertension documented in this encounter [facility] note* Diagnosis FH: colon cancer in first degree relative <60 years old- Primary History of colonic polyps Personal history of colonic polyps documented in this encounter [facility] [place] [facility]* Diagnosis Essential hypertension- Primary Unspecified essential hypertension documented in this encounter [facility] [place] [facility]* Diagnosis Acute otitis media, right- Primary Unspecified otitis media Acute cough documented [facility] this encounter [facility] [place] [facility]* Diagnosis Acute cough- Primary Essential hypertension Unspecified essential hypertension documented in this encounter [facility] [place] [facility]* Diagnosis Essential hypertension- Primary Unspecified essential hypertension documented in this encounter [facility] [place] [facility]* Diagnosis Parkinson's disease without dyskinesia or fluctuating manifestations (HCC)- Primary documented in this encounter [facility] [place] [facility]* Diagnosis Pain of left calf Pain in limb documented [facility] this encounter [facility] [place] [facility]* Diagnosis Screening for malignant neoplasm of prostate- Primary Elevated PSA Elevated prostate specific antigen (PSA) Essential hypertension Unspecified essential hypertension documented [facility] this encounter [facility] [place] [facility]* Diagnosis RLS (restless legs syndrome) Restless legs syndrome (RLS) documented in this encounter [facility] [place] [facility]* Diagnosis Essential hypertension- Primary Unspecified essential hypertension Anxiety and depression Dysthymic disorder Parkinson's disease, unspecified whether dyskinesia present, unspecified whether manifestations fluctuate (HCC) History of colonic polyps Personal history of colonic polyps documented in this encounter [facility] note* Diagnosis Parkinson's disease without dyskinesia or fluctuating manifestations (HCC)- Primary RLS (restless legs syndrome) Restless legs syndrome (RLS) documented in this encounter [facility] [place] [facility]* Diagnosis Bronchitis- Primary Bronchitis, not specified as acute or chronic [facility]* Diagnosis Parkinson's disease without dyskinesia or fluctuating manifestations (HCC)- Primary RLS (restless legs syndrome) Restless legs syndrome (RLS) [facility] [place] [facility]* Diagnosis Posture abnormality- Primary Abnormal posture Parkinson's disease without dyskinesia or fluctuating manifestations (HCC) [facility] [place] [facility]* Diagnosis Onset Date Resolution Status Admit Date Acute cystitis with hematuria acute September 10, 2024 1:33am Acute metabolic encephalopathy acute September 10, 2024 1:33am Elevated procalcitonin acute Ju 2024 1:33am Fever acute September 10 1:33am Generalized weakness acute September 10, 2024 1:33am Leukocytosis acute September 10 1:33am Obesity (BMI 30.0-34.9) acute J 2024 1:33am Parkinson disease acute September 102024 1:33am Sepsis acute September 10 1:33am [facility] Work Phone: Evaluation note* Diagnosis RLS (restless legs syndrome) Restless legs syndrome (RLS) [facility] ([facility]arrative)No reason for referral information availableWUniversity [facility] Work Phone: Reason for Referral Specialty Diagnoses / Procedures Referred By Jesús t Referred To Contact Urology Diagnoses Elevated PSA Procedures CONSULT TO UROLOGY OFFICE/OUTPATIENT [facility] 60-74 MINUTES Christo Warren MD [address] [place] [address] Referral ID Status Reason Start Date Expiration Date Visits Requested Visits Authorized [id number] Authorized PCP Requested Referral 01/20/2024 1 1 Specialty Diagnoses / Procedures Referred By Contac t Referred To Contact Neurology Diagnoses Gait disorder Bradykinesia Procedures CONSULT TO NEUROLOGY OFFICE/OUTPATIENT [facility] 60 MINUTES Christo Warren MD [address] [place] [address] Referral ID Status Reason Start Date Expiration Date Visits Requested Visits Authorized [id number] Pending Review PCP Requested Referral 09/08/2023 09/07/2024 1 1 Specialty Diagnoses / Procedures Referred By Contac t Referred To Contact General Surgery / FAMILY MEDICINE Diagnoses History of colonic polyps Procedures CONSULT TO GENERAL SURGERY OFFICE/OUTPATIENT [facility] 60 MINUTES Christo Warren MD [address] [place] [address] [facility] [address] [place] [address] Referral ID Status Reason Start Date Expiration Date Visits Requested Visits Authorized [id number] Authorized PCP Requested Referral 03/24/2023 03/23/2024 1 1 Specialty Diagnoses / Procedures Referred By Contac t Referred To Contact [facility] Diagnoses Parkinson's disease without dyskinesia or fluctuating manifestations (HCC) Procedures CONSULT TO [facility] EVAL HIGH COMPLEX 60 MINS Nikki Javier MD [address] [place] [address] [facility] [address] [place] [address] Referral ID Status Reason Start Date Expiration Date Visits Requested Visits Authorized [id number] Pending Review Auto-Generat ed Referral 11/17/2023 11/16/2024 1 1 Specialty Diagnoses / Procedures Referred By Contac t Referred To Contact [facility] Diagnoses Parkinson's disease without dyskinesia or fluctuating manifestations (HCC) Procedures CONSULT TO PHYSICAL THERAPY PHYSICAL THERAPY EVALUATION HIGH COMPLEX 45 MINS Nikki Javier MD [address] [place] [place] [address] [facility] [address] [address] Referral ID Status Reason Start Date Expiration Date Visits Requested Visits Authorized [id number] Pending Review Auto-Generat ed Referral 11/17/2023 11/16/2024 1 1 Summary Purpose Family History No Family History Records Found Relationship Condition Age at Onset Recorded Date/T sae daughter Malignant neoplasm of colon 17 Advance Directives No Advanced Directives Records Found Advance Directive Response Recorded Date/ Time Do you have a Healthcare Power of Shuttle Preparation Supervisor? No September 09, 2024 11:52pm Advance Directive Response Recorded Date/ Time Do you have a Healthcare Power of Shuttle Preparation Supervisor? No September 10, 2024 2:17am Chief Complaint and Reason for Visit Chief Complaint Admit Date UTI SEPSIS AMS AND PARKINSON'S DISEASE J [facility] 2024 1:33am Reason for Visit Admit Date Acute cystitis with hematuria September 10, 2024 1:33am Acute metabolic encephalopathy August 1:33am Elevated procalcitonin September 10, 2024 1 :33am Fever September 10, 2024 1:33 am Generalized weakness September 10, 2024 1:3 3am Leukocytosis September 10, 2024 1:33 am Obesity (BMI 30.0-34.9) September 10, 2024 1:33am Parkinson disease September 10, 2024 1:33 am Sepsis September 10, 2024 1:33 am Chief Complaint Admit Date UTI SEPSIS AMS AND PARKINSON'S DISEASE J [facility] 2024 1:33am UTI SEPSIS AMS AND PARKINSON'S DISEASE J [facility] 2024 8:13am UTI SEPSIS AMS AND PARKINSON'S DISEASE J [facility] 2024 8:44am Reason for Visit Admit Date Acute cystitis with hematuria September 10, 2024 1:33am Acute metabolic encephalopathy August 1:33am Bacteremia September 10, 2024 1:33 am Cellulitis September 10, 2024 1:33 am Elevated procalcitonin September 10, 2024 1 :33am Fever September 10, 2024 1:33 am Generalized weakness September 10, 2024 1:3 3am Leukocytosis September 10, 2024 1:33 am Obesity (BMI 30.0-34.9) September 10, 2024 1:33am Parkinson disease September 10, 2024 1:33 am Sepsis September 10, 2024 1:33 am Urinary frequency September 10, 2024 1:33 am UTI (urinary tract infection) September 10, 2024 1:33am Additional Source Comments Source Comments (unrecognize d section and content) In the event this informatio n is protected by the Federal Confidentiality of Alcohol and Drug Abuse Patient Records regulations: The Federal rules restrict any use of the information to criminally investigate or prosecute any alcohol or drug abuse patient.[facility] Center[facility] the event this information is protected by the Federal Confidentiality of Alcohol and Drug Abuse Patient Records regulations: The Federal rules restrict any use of the information to criminally investigate or prosecute any alcohol or drug abuse patient.[facility] CenterIn the event this information is protected by the Federal Confidentiality of Alcohol and Drug Abuse Patient Records regulations: The Federal rules restrict any use of the information to criminally investigate or prosecute any alcohol or drug abuse patient.[facility] CenterIn the event this information is protected by the Federal Confidentiality of Alcohol and Drug Abuse Patient Records regulations: The Federal rules restrict any use of the information to criminally investigate or prosecute any alcohol or drug abuse patient.[facility] CenterIn the event this information is protected by the Federal Confidentiality of Alcohol and Drug Abuse Patient Records regulations: The Federal rules restrict any use of the information to criminally investigate or prosecute any alcohol or drug abuse patient.[facility] CenterIn the event this information is protected by the Federal Confidentiality of Alcohol and Drug Abuse Patient Records regulations: The Federal rules restrict any use of the information to criminally investigate or prosecute any alcohol or drug abuse patient.[facility] CenterIn the event this information is protected by the Federal Confidentiality of Alcohol and Drug Abuse Patient Records regulations: The Federal rules restrict any use of the information to criminally investigate or prosecute any alcohol or drug abuse patient.[facility] CenterIn the event this information is protected by the Federal Confidentiality of Alcohol and Drug Abuse Patient Records regulations: The Federal rules restrict any use of the information to criminally investigate or prosecute any alcohol or drug abuse patient.[facility] CenterIn the event this information is protected by the Federal Confidentiality of Alcohol and Drug Abuse Patient Records regulations: The Federal rules restrict any use of the information to criminally investigate or prosecute any alcohol or drug abuse patient.[facility] CenterIn the event this information is protected by the Federal Confidentiality of Alcohol and Drug Abuse Patient Records regulations: The Federal rules restrict any use of the information to criminally investigate or prosecute any alcohol or drug abuse patient.[facility] CenterIn the event this information is protected by the Federal Confidentiality of Alcohol and Drug Abuse Patient Records regulations: The Federal rules restrict any use of the information to criminally investigate or prosecute any alcohol or drug abuse patient.[facility] CenterIn the event this information is protected by the Federal Confidentiality of Alcohol and Drug Abuse Patient Records regulations: The Federal rules restrict any use of the information to criminally investigate or prosecute any alcohol or drug abuse patient.[facility] CenterIn the event this information is protected by the Federal Confidentiality of Alcohol and Drug Abuse Patient Records regulations: The Federal rules restrict any use of the information to criminally investigate or prosecute any alcohol or drug abuse patient.[facility] CenterIn the event this information is protected by the Federal Confidentiality of Alcohol and Drug Abuse Patient Records regulations: The Federal rules restrict any use of the information to criminally investigate or prosecute any alcohol or drug abuse patient.[facility] CenterIn the event this information is protected by the Federal Confidentiality of Alcohol and Drug Abuse Patient Records regulations: The Federal rules restrict any use of the information to criminally investigate or prosecute any alcohol or drug abuse patient.[facility] CenterIn the event this information is protected by the Federal Confidentiality of Alcohol and Drug Abuse Patient Records regulations: The Federal rules restrict any use of the information to criminally investigate or prosecute any alcohol or drug abuse patient.[facility] CenterIn the event this information is protected by the Federal Confidentiality of Alcohol and Drug Abuse Patient Records regulations: The Federal rules restrict any use of the information to criminally investigate or prosecute any alcohol or drug abuse patient.[facility] CenterIn the event this information is protected by the Federal Confidentiality of Alcohol and Drug Abuse Patient Records regulations: The Federal rules restrict any use of the information to criminally investigate or prosecute any alcohol or drug abuse patient.[facility] CenterIn the event this information is protected by the Federal Confidentiality of Alcohol and Drug Abuse Patient Records regulations: The Federal rules restrict any use of the information to criminally investigate or prosecute any alcohol or drug abuse patient.[facility] CenterIn the event this information is protected by the Federal Confidentiality of Alcohol and Drug Abuse Patient Records regulations: The Federal rules restrict any use of the information to criminally investigate or prosecute any alcohol or drug abuse patient.[facility] CenterIn the event this information is protected by the Federal Confidentiality of Alcohol and Drug Abuse Patient Records regulations: The Federal rules restrict any use of the information to criminally investigate or prosecute any alcohol or drug abuse patient.[facility] CenterIn the event this information is protected by the Federal Confidentiality of Alcohol and Drug Abuse Patient Records regulations: The Federal rules restrict any use of the information to criminally investigate or prosecute any alcohol or drug abuse patient.[facility] CenterIn the event this information is protected by the Federal Confidentiality of Alcohol and Drug Abuse Patient Records regulations: The Federal rules restrict any use of the information to criminally investigate or prosecute any alcohol or drug abuse patient.[facility] CenterIn the event this information is protected by the Federal Confidentiality of Alcohol and Drug Abuse Patient Records regulations: The Federal rules restrict any use of the information to criminally investigate or prosecute any alcohol or drug abuse patient.[facility] CenterIn the event this information is protected by the Federal Confidentiality of Alcohol and Drug Abuse Patient Records regulations: The Federal rules restrict any use of the information to criminally investigate or prosecute any alcohol or drug abuse patient.[facility] CenterIn the event this information is protected by the Federal Confidentiality of Alcohol and Drug Abuse Patient Records regulations: The Federal rules restrict any use of the information to criminally investigate or prosecute any alcohol or drug abuse patient.[facility] CenterIn the event this information is protected by the Federal Confidentiality of Alcohol and Drug Abuse Patient Records regulations: The Federal rules restrict any use of the information to criminally investigate or prosecute any alcohol or drug abuse patient.[facility] CenterIn the event this information is protected by the Federal Confidentiality of Alcohol and Drug Abuse Patient Records regulations: The Federal rules restrict any use of the information to criminally investigate or prosecute any alcohol or drug abuse patient.[facility] CenterIn the event this information is protected by the Federal Confidentiality of Alcohol and Drug Abuse Patient Records regulations: The Federal rules restrict any use of the information to criminally investigate or prosecute any alcohol or drug abuse patient.[facility] CenterIn the event this information is protected by the Federal Confidentiality of Alcohol and Drug Abuse Patient Records regulations: The Federal rules restrict any use of the information to criminally investigate or prosecute any alcohol or drug abuse patient.[facility] CenterIn the event this information is protected by the Federal Confidentiality of Alcohol and Drug Abuse Patient Records regulations: The Federal rules restrict any use of the information to criminally investigate or prosecute any alcohol or drug abuse patient.[facility] CenterIn the event this information is protected by the Federal Confidentiality of Alcohol and Drug Abuse Patient Records regulations: The Federal rules restrict any use of the information to criminally investigate or prosecute any alcohol or drug abuse patient.[facility] CenterIn the event this information is protected by the Federal Confidentiality of Alcohol and Drug Abuse Patient Records regulations: The Federal rules restrict any use of the information to criminally investigate or prosecute any alcohol or drug abuse patient.[facility] CenterIn the event this information is protected by the Federal Confidentiality of Alcohol and Drug Abuse Patient Records regulations: The Federal rules restrict any use of the information to criminally investigate or prosecute any alcohol or drug abuse patient.[facility] CenterIn the event this information is protected by the Federal Confidentiality of Alcohol and Drug Abuse Patient Records regulations: The Federal rules restrict any use of the information to criminally investigate or prosecute any alcohol or drug abuse patient.[facility] CenterIn the event this information is protected by the Federal Confidentiality of Alcohol and Drug Abuse Patient Records regulations: The Federal rules restrict any use of the information to criminally investigate or prosecute any alcohol or drug abuse patient.[facility] CenterIn the event this information is protected by the Federal Confidentiality of Alcohol and Drug Abuse Patient Records regulations: The Federal rules restrict any use of the information to criminally investigate or prosecute any alcohol or drug abuse patient.[facility] CenterIn the event this information is protected by the Federal Confidentiality of Alcohol and Drug Abuse Patient Records regulations: The Federal rules restrict any use of the information to criminally investigate or prosecute any alcohol or drug abuse patient.[facility] CenterIn the event this information is protected by the Federal Confidentiality of Alcohol and Drug Abuse Patient Records regulations: The Federal rules restrict any use of the information to criminally investigate or prosecute any alcohol or drug abuse patient.[facility] CenterIn the event this information is protected by the Federal Confidentiality of Alcohol and Drug Abuse Patient Records regulations: The Federal rules restrict any use of the information to criminally investigate or prosecute any alcohol or drug abuse patient.[facility] CenterIn the event this information is protected by the Federal Confidentiality of Alcohol and Drug Abuse Patient Records regulations: The Federal rules restrict any use of the information to criminally investigate or prosecute any alcohol or drug abuse patient.[facility] CenterIn the event this information is protected by the Federal Confidentiality of Alcohol and Drug Abuse Patient Records regulations: The Federal rules restrict any use of the information to criminally investigate or prosecute any alcohol or drug abuse patient.[facility] CenterIn the event this information is protected by the Federal Confidentiality of Alcohol and Drug Abuse Patient Records regulations: The Federal rules restrict any use of the information to criminally investigate or prosecute any alcohol or drug abuse patient.[facility] CenterIn the event this information is protected by the Federal Confidentiality of Alcohol and Drug Abuse Patient Records regulations: The Federal rules restrict any use of the information to criminally investigate or prosecute any alcohol or drug abuse patient.[facility] CenterIn the event this information is protected by the Federal Confidentiality of Alcohol and Drug Abuse Patient Records regulations: The Federal rules restrict any use of the information to criminally investigate or prosecute any alcohol or drug abuse patient.[facility] Reason for Visit (unrecogniz ed [...] tion Specialty Diagnoses / Procedures Referred By Contac t Referred To Contact General Surgery / FAMILY MEDICINE Diagnoses History of colonic polyps Procedures CONSULT TO GENERAL SURGERY OFFICE/OUTPATIENT [facility] 60 MINUTES Christo Warren MD [address] [place] [address] [facility] [address] [place] [address] Referral ID Status Reason Start Date Expiration Date V isits Requested Visits Authorized [id number] Closed PCP Requested Referral 03/24/2023 03/23/2024 1 1 Reason Comments Cough Cough, stomach hurts , runny nose x 4 days Reason Comments runny nose, cough Requesting another a ntibiotic Reason Comments nurse visit bp check Reason Comments Blood Pressure Check Reason Comments Consult Specialty Diagnoses / Procedures Referred By Contac t Referred To Contact Neurology / FAMILY MEDICINE Diagnoses Gait disorder Bradykinesia Procedures CONSULT TO NEUROLOGY OFFICE/OUTPATIENT [facility] 60 MINUTES Christo Warren MD [address] [place] [address] [facility] [address] [place] [address] Referral ID Status Reason Start Date Expiration Date V isits Requested Visits Authorized [id number] Closed PCP Requested Referral 10/22/2023 03/23/2024 1 [...] Eval Specialty Diagnoses / Procedures Referred By Contac t Referred To Contact PHYSICAL THERAPY Diagnoses Parkinson's disease without dyskinesia or fluctuating manifestations (HCC) Procedures CONSULT TO PHYSICAL THERAPY PHYSICAL THERAPY EVALUATION HIGH COMPLEX 45 MINS Nikki Javier MD Phone: tel: fax: Mis Montgomery, PT [address] [place] [address] Phone: tel: Referral ID Status Reason Start Date Expiration Date Visits Requested Visits Authorized [id number] Authorized Auto-Generat ed Referral 08/05/2024 03/23/2025 99 99 Reason Onset Date Comments Population Health Navigation Outreach 09/08/2024 [employer] [facility] PCSA Reason Onset Date Comments Refill Request 08/31/2024 Care Teams (unrecognized sec tion and content) Team Status: Active Member Role Status Dates Dr. Christo Warren MD Primary Care Provider Active Team Status: Inactive Member Role Status Dates Dr. Christo Warren MD Primary Care Provider Active Start: September 10, 2024 End: September 12, 2024 Dr. Derrek Chauhan DO Emergency Provider Active Start: September 10, 2024 End: September 12, 2024 Dr. Camden Zelaya DO Admit Provider Active Start: September 10, 2024 End: September 12, 2024 Dr. Camden Zelaya DO Other Provider Active Start: September 10, 2024 End: September 12, 2024 Dr. Andrade Arango DO Attending Provider Active Start: September 10, 2024 End: September 12, 2024 Team Status: Active Member Role Status Dates Dr. Christo Warren MD Primary Care Provider Active Start: September 11, 2024 Dr. Derrek Chauhan DO Emergency Provider Active Start: September 11, 2024 Dr. Camden Zelaya DO Admit Provider Active Start: September 11, 2024 Dr. Camden Zelaya DO Other Provider Active Start: September 11, 2024 Dr. Andrade Arango DO Attending Provider Active Start: September 11, 2024 Dr. Andrade Arango DO Other Provider Active Star t: September 11, 2024 Team Status: Active Member Role Status Dates Dr. Christo Warren MD Primary Care Provider Active Start: September 12, 2024 Dr. Derrek Chauhan DO Emergency Provider Active Start: September 12, 2024 Dr. Camden Zelaya DO Admit Provider Active Start: September 12, 2024 Dr. Camden Zelaya DO Other Provider Active Start: September 12, 2024 Dr. Andrade Arango DO Attending Provider Active Start: September 12, 2024 Dr. Andrade Arango DO Other Provider Active Star t: September 12, 2024 Industrial Custodian Relationship Specialty Start Date End Date Christo Warren MD [address] [place] [address] PCP - General Family Practice 10/30/17 Industrial Custodian Relationship Specialty Start Date End Date Christo Warren MD [address] [facility] [place] [address] PCP - General Family Medicine 10/30/17 Industrial Custodian Relationship Specialty Start Date End Date Christo Warren MD [address] [facility] [place] [address] PCP - General Family Medicine 10/30/17 Industrial Custodian Relationship Specialty Start Date End Date Christo Warren MD [address] [facility] [place] [address] PCP - General Family Medicine 10/30/17 Industrial Custodian Relationship Specialty Start Date End Date Christo Warren MD [address] [facility] [place] [address] PCP - General Family Medicine 10/30/17 Industrial Custodian Relationship Specialty Start Date End Date Christo Warren MD [address] [facility] [place] [address] PCP - General Family Medicine 10/30/17 Industrial Custodian Relationship Specialty Start Date End Date Christo Warren MD [address] [facility] [place] [address] PCP - General Family Medicine 10/30/17 Industrial Custodian Relationship Specialty Start Date End Date Christo Warren MD [address] [facility] [place] [address] PCP - General Family Medicine 10/30/17 Industrial Custodian Relationship Specialty Start Date End Date Christo Warren MD [address] [facility] [place] [address] PCP - General Family Medicine 10/30/17 Industrial Custodian Relationship Specialty Start Date End Date Christo Warren MD [address] [facility] [place] [address] PCP - General Family Medicine 10/30/17 Industrial Custodian Relationship Specialty Start Date End Date Christo Warren MD [address] [facility] [place] [address] PCP - General Family Medicine 10/30/17 Industrial Custodian Relationship Specialty Start Date End Date Christo Warren MD [address] [facility] [place] [address] PCP - General Family Medicine 10/30/17 Industrial Custodian Relationship Specialty Start Date End Date Christo Warren MD [address] [facility] [place] [address] PCP - General Family Medicine 10/30/17 Industrial Custodian Relationship Specialty Start Date End Date Christo Warren MD [address] [facility] [place] [address] PCP - General Family Medicine 10/30/17 Industrial Custodian Relationship Specialty Start Date End Date Christo Warren MD [address] [facility] [place] [address] PCP - General Family Medicine 10/30/17 Industrial Custodian Relationship Specialty Start Date End Date Christo Warren MD [address] [facility] [place], [place] [address] PCP - General Family Medicine 10/30/17 Industrial Custodian Relationship Specialty Start Date End Date Christo Warren MD [address] [facility] [place] [address] PCP - General Family Medicine 10/30/17 Industrial Custodian Relationship Specialty Start Date End Date Christo Warren MD [address] [facility] [place], [place] [address] PCP - General Family Medicine 10/30/17 Industrial Custodian Relationship Specialty Start Date End Date Christo Warren MD [address] [facility] [place] [address] PCP - General Family Medicine 10/30/17 Industrial Custodian Relationship Specialty Start Date End Date Christo Warren MD [address] [facility] [place] [address] PCP - General Family Medicine 10/30/17 Industrial Custodian Relationship Specialty Start Date End Date Christo Warren MD [address] [facility] [place] [address] PCP - General Family Medicine 10/30/17 Hermelinda Goldman APRN.ROLL CONTOUR GRINDER [address] [place] [address] [employer] Family [facility] 03/01/24 Palak Jimenez APRN.ROLL CONTOUR GRINDER [address] [facility] [place] [address] [employer] 03/01/24 Industrial Custodian Relationship Specialty Start Date End Date Christo Warren MD [address] [facility] [place] [address] PCP - General Family Medicine 10/30/17 Hermelinda Goldman APRN.ROLL CONTOUR GRINDER [address] [place] [address] [employer] Family [facility] 03/01/24 Palak Jimenez APRN.ROLL CONTOUR GRINDER [address] [facility] [place] [address] [employer] Family Medicine 03/01/24 Industrial Custodian Relationship Specialty Start Date End Date Christo Warren MD [address] [facility] [place] [address] PCP - General Family Medicine 10/30/17 Hermelinda Goldman ALLERGIST IMMUNOLOGIST.ROLL CONTOUR GRINDER [address] [place] [address] [employer] 03/01/24 Palak Jimenez APRN.ROLL CONTOUR GRINDER [address] [facility] [place] [address] [facility] Industrial Custodian Relationship Specialty Start Date End Date Christo Warren MD [address] [facility] [place] [address] PCP - General Family Medicine 10/30/17 Hermelinda Goldman ALLERGIST IMMUNOLOGIST.ROLL CONTOUR GRINDER [address] [facility] [place] [address] [employer] Family Medicine 03/01/24 Palak Jimenez APRN.ROLL CONTOUR GRINDER [address] [place] [address] [facility] 03/01/24 Industrial Custodian Relationship Specialty Start Date End Date Christo Warren MD [address] [place] [address] PCP - General Family Medicine 10/30/17 Hermelinda Goldman ALLERGIST IMMUNOLOGIST.ROLL CONTOUR GRINDER [address] [place] [address] [employer] [facility] 03/01/24 Palak Jimenez APRN.ROLL CONTOUR GRINDER [address] [place] [address] [employer] [facility] 03/01/24 Industrial Custodian Relationship Specialty Start Date End Date Christo Warren MD [address] [place] [address] PCP - General Family Medicine 10/30/17 Hermelinda Goldman APRN.ROLL CONTOUR GRINDER [address] [place] [address] [facility] 03/01/24 Palak Jimenez ALLERGIST IMMUNOLOGIST.ROLL CONTOUR GRINDER [address] [place] [address] [employer] Family [facility] 03/01/24 Industrial Custodian Relationship Specialty Start Date End Date Christo Warren MD [address] [place] [address] PCP - General Family Medicine 10/30/17 Hermelinda Goldman ALLERGIST IMMUNOLOGIST.ROLL CONTOUR GRINDER [address] [place] [address] [employer] [facility] 03/01/24 Palak Jimenez ALLERGIST IMMUNOLOGIST.ROLL CONTOUR GRINDER [address] [place] [address] Rubber Grinder [facility] 03/01/24 Industrial Custodian Relationship Specialty Start Date End Date Christo Warren MD [address] [place] [address] PCP - General Family Medicine 10/30/17 Hermelinda Goldman APRN.ROLL CONTOUR GRINDER [address] [place], [place] [address] [facility] 03/01/24 Palak Jimenez ALLERGIST IMMUNOLOGIST.ROLL CONTOUR GRINDER [address] [facility] [place] [address] [facility] 03/01/24 Team Status: Active Member Role Status Dates Dr. Christo Warren MD Primary Care Provider Active Start: September 10, 2024 Dr. Derrek Chauhan DO Emergency Provider Active Start: September 10, 2024 Dr. Camden Zelaya DO Admit Provider Active Start: September 10, 2024 Dr. Camden Zelaya DO Attending Provider Active Start: September 10, 2024 (unrecognized sect ion and content) No Status Records FoundNo Status Records FoundNo Status Records FoundNo Status Records Found INFORMATION SOURCE (unrecogn ized section and content) DATE CREATED AUTHOR 05/03/2024 [facility] nter DATE CREATED AUTHOR AUTHOR'S ORGANIZ ATION 09/08/2024 [facility] DATE CREATED AUTHOR AUTHOR'S ORGANIZ ATION 09/11/2024 [facility] DATE CREATED AUTHOR AUTHOR'S ORGANIZ ATION 09/15/2024 [facility] Goals (unrecognized section and content) Goals may be documented in a n alternate section FOR RECORDS PERTAINING TO PATIENTS WHO ARE [...] BE BASED ON THE PRIMARY CLINICAL RECORDS. [facility]. provides no warranty or guarantee of the accuracy or completeness of information in this document.
== END 2024-09-12 14:36 | disposition home or self-care (01) | DRG 871 ==
LOC: ED 09-10 01:15 → PCU 09-10 01:45
PROVIDERS: Admitting Provider Internal Medicine; Emergency Provider Emergency Medicine; PCP Family Medicine
DX: A41.9 Sepsis, unspecified organism (principal); G93.41 Metabolic encephalopathy; L03.90 Cellulitis, unspecified; G20.B2 Parkinson's disease with dyskinesia, with fluctuations; Z68.34 Body mass index [BMI] 34.0-34.9, adult; M47.9 Spondylosis, unspecified; R65.20 Severe sepsis without septic shock; E78.5 Hyperlipidemia, unspecified; E66.811 Obesity, class 1; R35.0 Frequency of micturition; N40.1 Benign prostatic hyperplasia with lower urinary tract symptoms
CPT/HCPCS: 36415; 71045; 71275; 74174; 80048; 80061; 80076; 81001; 82140; 82607; 83036; 83605; 84145; 84443; 85025; 85610; 87040; 87086; 87631; 93005; 94762; 97116; 97161; 97166; 97530; 99285; Q9967; A4216